=== PATIENT | female | born 1965 | race Caucasian/White ===

== ENCOUNTER 2016-11-06 04:48 | Emergency (ER) | payer OTHER ==
[~2016-11-06 04:48] MED LIST: /ESOM40CA OR; /LAMO15TA PO; /LAMO20TA OR; /MOXI40TA PO; ADV250INH INH; ALBU0.63 IN; ALBU17IN INH; ATOR1TAB21 PO; AZIT250T3 PO; BACITAB3 PO; BIAX500T PO; BREO1INH INH; BUSP15TA47 PO; CETI10TA PO; CHERSYP3 PO; CLON0.5T PO; CLON1TAB PO; COMBAER6 INH; DEPA500T2 PO; DRIS50002 PO; FLON1SPR; FOLI1TAB2 PO; GEMF600T PO; GUAI1TAB PO; HYDR-4274 PO; HYDRO50TAB PO; IBUP80TA PO; INCR1INH INH; INVE234I IM; KLON1TAB PO; LAMI100T PO; LAMI200T3 PO; LAMI25TA OR; LEVO500T32 PO; LIPI10TA PO; LISI-538 PO; LISI20TA5 OR; MACR100C3 PO; MICR10CA PO; MIRA33504 PO; MUCI600T34 PO; NEXI40CA PO; NICO14DI20 TD; NICO4GUM PO; NICO4GUM31 PO; OMEP20CA3 PO; OSCA200T PO; PANT40TA2 PO; PARO25TAB OR; PAXI20TA3 PO; PAXI30TA11 PO; PAXI30TA2 PO; PAXI40TA2 PO; PAXIL PO; PRED20TA PO; QUET30XR PO; QUET5TAB PO; RISP3TAB18 PO; SERO1TAB2 PO; SERO200T PO; SERO200T2 PO; SERO400T OR; SERO400T PO; SPIR1CAP INH; TEMA7.5C PO; TESS100C PO; THIA100TA PO; TRAZ50TA4 PO; TYLE325T5 PO; TYLE500T78 PO; Thiamine Hcl PO; VANC1SUS PO; VANC250C2 PO; VENTAER IN; VITMTA PO; spiriva INH
[2016-11-06] MEDS ORDERED: LEVALBUTEROL 1.25 MG/0.5 ML CONCENTRATE NEB As Ordered ONE (05:29)
[2016-11-06] MEDS ORDERED: predniSONE 20 MG TAB As Ordered ONE (05:36)
--- NOTE | 2016-11-06 06:58 | EDDOCDS ---
Nurse's Notes [facility] Name: Yesenia Melgar Age: 51 yrs Sex: Female : 1965 Arrival Date: 11/06/2016 Time: 04:48 Bed 8 Private MD: Bibiana Spears C Diagnosis: Chronic obstructive pulmonary disease with (acute) exacerbation;Nicotine dependence Presentation: 11/06 05:02 Presenting complaint: Patient states: Was seen here [facility] with similar symptoms, pt lf1 states shortness of breath and cough has gotten worse. Adult Sepsis Screening: The patient does not have new or worsening altered mentation. Patient has a respiratory rate of greater than or equal to 22 (1 point). Systolic blood pressure is greater than 100. Patient has a qSOFA score of 1- Negative Sepsis Screen. Suicide/Homicide risk assessment- the patient denies having any suicidal and/or homicidal ideations and does not present with any other emotional, behavioral or mental health complaints. 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 Transition of care: patient was not received from another setting of care. 05:02 Acuity: SEDA Level 3 lf1 05:02 Method Of Arrival: Walkin/Carried/Asstd lf1 05:09 Presenting complaint: Pt reports she finished a Z-pac yesterday. lf1 Triage Assessment: 05:09 General: Appears uncomfortable, Behavior is cooperative. Pain: Denies pain. HIV lf1 screening NA for this visit Offered previously. The patient is triaged at the bedside. See Assessment in Nurses Notes section of ED record. Neurological: Level of Consciousness is awake, alert, Oriented to person, place, time. EENT: Reports nasal congestion nasal discharge. Cardiovascular: Chest pain is denied. Respiratory: Onset: The symptoms/episode began/occurred yesterday, Respiratory effort is even, unlabored, Respiratory pattern is regular, Breath sounds are coarse Breath sounds with rhonchi bilaterally. Breath sounds with wheezes expiratory bilaterally. Reports shortness of breath cough that is non-productive, the patient has mild shortness of breath. GI: Denies diarrhea, nausea, vomiting. : Denies burning with urination, urinary frequency. Derm: No deficits noted. Injury Description: No known injury. 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 albuterol sulfate 90 mcg/actuation Inhl HFAA 2 puffs every 4 hours as needed (Last dose: 11/06/2016 04:00) 2. folic acid 1 mg Oral tab 1 tab once daily (Last dose: 11/06/2016 04:00) 3. Klonopin 0.5 mg Oral tab 1 tab 3 times per day (Last dose: 11/06/2016 04:00) 4. Lamictal 200 mg Oral tab 2 times per day (Last dose: 11/06/2016 04:00) 5. lisinopril 20 mg Oral tab 1 tab once daily (Last dose: 11/06/2016 04:00) 6. Paxil 30 mg Oral tab once daily (Last dose: 11/06/2016 04:00) 7. prednisone 40 mg Oral tab once daily (Last dose: 11/06/2016 04:00) 8. Protonix 40 mg Oral TbEC 1 tab once daily (Last dose: 11/06/2016 04:00) 9. Seroquel 50 mg Oral tab 1 tab nightly (Last dose: 11/05/2016 20:00) - PMHx: Alcoholism; Anxiety; Bipolar disorder; c-diff; COPD; Hypertension; Pneumonia; PTSD; - PSHx: Cholecystectomy; Ovarian Cystectomy- Right; - The history from nurses notes was reviewed: and I agree with what is documented. - Social history: Smoking status: Patient uses tobacco products, current every day smoker. No barriers to communication noted, The patient speaks fluent Urdu, Speaks appropriately for age, Preferred Language: Urdu. - : The pt / caregiver states he / she is not on anticoagulants. Home medication list is obtained from the patient. - Hospitalizations: : The patient was recently seen at [facility], and discharged 2 month(s) ago, for unrelated complaints. - Exposure Risk Screening:: None identified. - Immunization history:: All immunizations up-to-date. - Family history: Not pertinent. - Social history:: the patient smokes cigarettes 2.5ppd the patient drinks alcohol, regularly to excess. Screenin:11 Screening information is obtained from the patient. Fall risk: No risks identified. lf1 Assistance ADL's: requires no assistance with activities of daily living. Abuse/DV Screen: The patient / caregiver reports he/she is: not in a situation that causes fear, pain or injury. Nutritional screening: No deficits noted. Advance Directives: Currently, there is no health care proxy. There is no active DNR order. home support is adequate. Assessment: 06:08 Adult Sepsis Screening: The patient does not have new or worsening altered mentation. cf2 Patient's respiratory rate is less than 22. Systolic blood pressure is greater than 100. Patient has a qSOFA score of 0- Negative Sepsis Screen. General: Appears in no apparent distress, comfortable, Behavior is appropriate for age, cooperative. Pain: Denies pain. Neurological: No deficits noted. EENT: No deficits noted. Cardiovascular: No deficits noted. Rhythm is sinus rhythm Chest pain is denied. Respiratory: Airway is patent Respiratory effort is even, unlabored, Respiratory pattern is regular, Reports cough that is hacking, persistent. GI: No deficits noted. : No deficits noted. Derm: No deficits noted. Musculoskeletal: No deficits noted. 06:56 General: Appears in no apparent distress, comfortable, Behavior is appropriate for age, ko2 cooperative. Neurological: No deficits noted. Respiratory: Airway is patent Respiratory effort is even, unlabored. Derm: No deficits noted. Vital Signs: 05:02 BP 144 / 98; Pulse 112; Resp 22; Temp 99.3(TE); Pulse Ox 95% ; Weight 81.65 kg (R); lf1 Height 5 ft. 0 in. (152.40 cm) (R); Pain 0/10; 06:48 BP 118 / 72; Pulse 102; Resp 20; Temp 98.9; Pulse Ox 95% ; Pain 0/10; ko2 05:02 Body Mass Index 35.15 (81.65 kg, 152.40 cm) [facility] Vitals: 05:02 Log In Time: November 06, 2016 at 04:50. [facility] ED Course: 04:50 Patient visited by Magy Holder. [facility] 04:50 Bibiana Spears is Private Physician. [facility] 04:50 Patient moved to Waiting [facility] 05:00 Patient moved to Triage 1 [facility] 05:06 Triage Initiated [facility] 05:12 Rozina Orozco,RN is Primary Nurse. lf1 05:12 Patient moved to 8 1 05:25 Kwesi Dyson MD is Attending Physician. pc 05:25 Patient visited by Kwesi Dyson MD. pc 06:08 Primary Nurse role handed off by Rozina Orozco RN cf2 06:08 Jessika Garcia,RN is Primary Nurse. cf2 06:08 Patient visited by Jessika Garcia,PERCY. cf2 06:08 The patient / caregiver is instructed regarding the plan of care and ED course. Patient cf2 has correct armband on for positive identification. Placed in gown. Bed in low position. Call light in reach. Side rails up X 1. Side rails up X2. Door closed. Noise minimized. Visitors limited. Lights dimmed. Moved to private room. 06:08 No IV's were initiated during this patient's visit. No procedures done that require cf2 assistance. 06:44 Bibiana Spears is Referral Physician. 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 Respiratory: Airway is patent Respiratory effort is even, unlabored, Respiratory pattern is regular symmetrical, Breath sounds with wheezes in left posterior upper lobe, right posterior upper lobe, left posterior lower lobe, right posterior middle lobe and right posterior lower lobe at expiration. 05:39 Respiratory: Airway is patent Respiratory effort is even, unlabored, Respiratory jh6 pattern is regular symmetrical, Breath sounds are coarse in left posterior upper lobe and left posterior lower lobe Breath sounds with wheezes in left posterior upper lobe, right posterior upper lobe and right posterior middle lobe at expiration. 05:50 Subsequent Med Neb Given as ordered Patient was reinforced on procedure. Respiratory: jh6 Airway is patent Respiratory effort is even, unlabored, Respiratory pattern is regular symmetrical, Breath sounds are coarse in left posterior upper lobe and left posterior lower lobe Breath sounds with wheezes in left posterior upper lobe, right posterior upper lobe, left posterior lower lobe, right posterior middle lobe and right posterior lower lobe at expiration. 06:10 Subsequent Med Neb Given as ordered Patient was reinforced on procedure Patient jh6 tolerated procedure well without adverse effect. Respiratory: Breath sounds are coarse in left posterior upper lobe, right posterior upper lobe, left posterior lower lobe, right posterior middle lobe and right posterior lower lobe Breath sounds with wheezes in left posterior upper lobe, right posterior upper lobe, left posterior lower lobe, right posterior middle lobe and right posterior lower lobe at expiration. Order Results: There are currently no results for this order. Outcome: 06:45 Discharge ordered by Provider. 06:57 Discharge Assessment: Patient awake, alert and oriented x 3. No cognitive and/or ko2 functional deficits noted. Patient verbalized understanding of disposition instructions. patient administered narcotics - no. The following High Risk Discharge criteria are identified: None. Discharged to home ambulatory. Condition: stable. Discharge instructions given to patient, Instructed on discharge instructions, follow up and referral plans. Demonstrated understanding of instructions, Pt was receptive of discharge instructions/ teaching. No special radiology studies were completed. Property sent home with patient. 06:57 Patient left the ED. ko2 Signatures: Kwesi Dyson MD MD pc Ford, Lisa,RN RN lf1 Vincenzo Landers 6 Rozina Orozco RN RN ko2 Magy Holder Christina,RN RN cf2 MTDD
--- NOTE | 2016-11-06 06:58 | EDDOCDS ---
Physician Documentation [facility] Name: Yesenia Melgar Age: 51 yrs Sex: Female : 1965 Arrival Date: 11/06/2016 Time: 04:48 Bed 8 Private MD: Bibiana Spears C Disposition: 11/06 06:44 Critical Care: Critical care not applicable. pc Disposition: 11/06/16 06:45 Discharged to Home/Self Care. Impression: Chronic obstructive pulmonary disease with (acute) exacerbation, Nicotine dependence. - Condition is Stable. - Discharge Instructions: Chronic Obstructive Pulmonary Disease. - Medication Reconciliation, Local Pharmacy Hours form. - Follow up: Bibiana Spears; When: 1 - 2 days; Reason: Recheck today's complaints, Continuance of care. - Problem is an acute exacerbation. - Symptoms have improved. HPI: 05:27 This 51 yrs old Female presents to ER via Walkin/Carried/Asstd with pc complaints of Breathing Difficulty. 05:27 The history is obtained from the patient. The patient presents with shortness of pc breath, with a prior history of COPD. The symptoms began gradually 2 days ago. The symptoms are continuous, and are unchanged since they started. There were circumstances that led to the current symptoms, including; a recent upper respiratory illness. The patient has shortness of breath at rest. At their worst, the symptoms were mild. In the emergency department, the symptoms are unchanged. The patient's shortness of breath has no apparent modifying factors. The patient has experienced similar episodes in the past, chronically. The patient has been recently seen at the [facility], a couple of weeks ago, for similar complaints. Historical: - Allergies: Flagyl (Hives, Rash); Naproxen (Hives, Swelling); SULFA (SULFONAMIDES) (Hives, Rash); - Home Meds: 1. albuterol sulfate 90 mcg/actuation Inhl HFAA 2 puffs every 4 hours as needed (Last dose: 11/06/2016 04:00) 2. folic acid 1 mg Oral tab 1 tab once daily (Last dose: 11/06/2016 04:00) 3. Klonopin 0.5 mg Oral tab 1 tab 3 times per day (Last dose: 11/06/2016 04:00) 4. Lamictal 200 mg Oral tab 2 times per day (Last dose: 11/06/2016 04:00) 5. lisinopril 20 mg Oral tab 1 tab once daily (Last dose: 11/06/2016 04:00) 6. Paxil 30 mg Oral tab once daily (Last dose: 11/06/2016 04:00) 7. prednisone 40 mg Oral tab once daily (Last dose: 11/06/2016 04:00) 8. Protonix 40 mg Oral TbEC 1 tab once daily (Last dose: 11/06/2016 04:00) 9. Seroquel 50 mg Oral tab 1 tab nightly (Last dose: 11/05/2016 20:00) - PMHx: Alcoholism; Anxiety; Bipolar disorder; c-diff; COPD; Hypertension; Pneumonia; PTSD; - PSHx: Cholecystectomy; Ovarian Cystectomy- Right; - The history from nurses notes was reviewed: and I agree with what is documented. - Social history: Smoking status: Patient uses tobacco products, current every day smoker. No barriers to communication noted, The patient speaks fluent Gibraltarian, Speaks appropriately for age, Preferred Language: Gibraltarian. - : The pt / caregiver states he / she is not on anticoagulants. Home medication list is obtained from the patient. - Hospitalizations: : The patient was recently seen at [facility], and discharged 2 month(s) ago, for unrelated complaints. - Exposure Risk Screening:: None identified. - Immunization history:: All immunizations up-to-date. - Family history: Not pertinent. - Social history:: the patient smokes cigarettes 2.5ppd the patient drinks alcohol, regularly to excess. 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 The gastrointestinal and genitourinary pc components are also addressed in the HPI. Exam: 05:27 General Appearance: no acute distress, alert. pc 05:27 EENT: normal eye inspection, ears, nose and throat normal, pharynx normal, mucous membranes moist 05:27 Neck: normal inspection. 05:27 Respiratory: no respiratory distress, no pleuritic chest pain, speaks in full sentences, auscultation reveals wheezes, diffusely, decreased air entry noted left posterior lower lobe and right posterior lower lobe. 05:27 Cardiovascular: normal heart rate, normal rhythm, no jugular venous distension appreciated, no murmurs, no gallop, no friction rub. 05:27 Abdomen: non-tender, non-distended, no organomegaly. 05:27 Skin: normal color, warm, dry. 05:27 Extremities: non-tender, normal range of motion of all joints, no pedal edema. 05:27 Neuro: alert, oriented to person, place and time, cranial nerves normal as tested, no motor deficits, no sensory deficits. 05:27 Psych: normal mood. Vital Signs: 05:02 BP 144 / 98; Pulse 112; Resp 22; Temp 99.3(TE); Pulse Ox 95% ; Weight 81.65 kg / 180.01 lf1 lbs (R); Height 5 ft. 0 in. (152.40 cm) (R); Pain 0/10; 06:48 BP 118 / 72; Pulse 102; Resp 20; Temp 98.9; Pulse Ox 95% ; Pain 0/10; ko2 05:02 Body Mass Index 35.15 (81.65 kg, 152.40 cm) lf1 MDM: 05:26 Levalbuterol 1.25 mg Nebulizer every 20 minutes x3 ordered. pc 05:26 Call Respiratory ordered. pc 05:26 predniSONE 60 mg PO once; administer with food or milk ordered. pc 05:27 Differential diagnosis: Chronic Obstructive Pulmonary Disease. Plan: nebs, meds. pc 05:28 Call Respiratory complete. ml3 06:44 Data reviewed: old medical records, vital signs, nurses notes. Test interpretation: pulse oximetry is 95% on room air. The patient has been re-examined and re-evaluated. The patient's symptoms have markedly improved after treatment. Disposition: The historical points, examination findings, and any diagnostic results supporting the provided diagnosis, were discussed with the patient or legal guardian. The need for outpatient follow up with the provider listed on their discharge instructions was discussed. They were encouraged to return to [facility], or the nearest ED, if symptoms worsen/persist, or for any other questions/concerns. 06:49 ED course: She was seen for a COPD exacerbation just 5 days ago, was started on prednisone, azithromycin and an albuterol MDI. She does not need any new prescriptions. 06:53 Misc. Nursing Order ordered. 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
--- NOTE | 2016-11-08 07:59 | EDDOCDS ---
Physician Documentation [facility] Name: Yesenia Melgar Age: 51 yrs Sex: Female : 1965 Arrival Date: 11/06/2016 Time: 04:48 Bed 8 Private MD: Bibiana Spears C Disposition: 11/06 06:44 Critical Care: Critical care not applicable. pc Disposition: 11/06/16 06:45 Discharged to Home/Self Care. Impression: Chronic obstructive pulmonary disease with (acute) exacerbation, Nicotine dependence. - Condition is Stable. - Discharge Instructions: Chronic Obstructive Pulmonary Disease. - Medication Reconciliation, Local Pharmacy Hours form. - Follow up: Bibiana Spears; When: 1 - 2 days; Reason: Recheck today's complaints, Continuance of care. - Problem is an acute exacerbation. - Symptoms have improved. HPI: 05:27 This 51 yrs old Female presents to ER via Walkin/Carried/Asstd with pc complaints of Breathing Difficulty. 05:27 The history is obtained from the patient. The patient presents with shortness of pc breath, with a prior history of COPD. The symptoms began gradually 2 days ago. The symptoms are continuous, and are unchanged since they started. There were circumstances that led to the current symptoms, including; a recent upper respiratory illness. The patient has shortness of breath at rest. At their worst, the symptoms were mild. In the emergency department, the symptoms are unchanged. The patient's shortness of breath has no apparent modifying factors. The patient has experienced similar episodes in the past, chronically. The patient has been recently seen at the [facility], a couple of weeks ago, for similar complaints. Historical: - Allergies: Flagyl (Hives, Rash); Naproxen (Hives, Swelling); SULFA (SULFONAMIDES) (Hives, Rash); - Home Meds: 1. albuterol sulfate 90 mcg/actuation Inhl HFAA 2 puffs every 4 hours as needed (Last dose: 11/06/2016 04:00) 2. folic acid 1 mg Oral tab 1 tab once daily (Last dose: 11/06/2016 04:00) 3. Klonopin 0.5 mg Oral tab 1 tab 3 times per day (Last dose: 11/06/2016 04:00) 4. Lamictal 200 mg Oral tab 2 times per day (Last dose: 11/06/2016 04:00) 5. lisinopril 20 mg Oral tab 1 tab once daily (Last dose: 11/06/2016 04:00) 6. Paxil 30 mg Oral tab once daily (Last dose: 11/06/2016 04:00) 7. prednisone 40 mg Oral tab once daily (Last dose: 11/06/2016 04:00) 8. Protonix 40 mg Oral TbEC 1 tab once daily (Last dose: 11/06/2016 04:00) 9. Seroquel 50 mg Oral tab 1 tab nightly (Last dose: 11/05/2016 20:00) - PMHx: Alcoholism; Anxiety; Bipolar disorder; c-diff; COPD; Hypertension; Pneumonia; PTSD; - PSHx: Cholecystectomy; Ovarian Cystectomy- Right; - The history from nurses notes was reviewed: and I agree with what is documented. - Social history: Smoking status: Patient uses tobacco products, current every day smoker. No barriers to communication noted, The patient speaks fluent Wallisian, Speaks appropriately for age, Preferred Language: Wallisian. - : The pt / caregiver states he / she is not on anticoagulants. Home medication list is obtained from the patient. - Hospitalizations: : The patient was recently seen at [facility], and discharged 2 month(s) ago, for unrelated complaints. - Exposure Risk Screening:: None identified. - Immunization history:: All immunizations up-to-date. - Family history: Not pertinent. - Social history:: the patient smokes cigarettes 2.5ppd the patient drinks alcohol, regularly to excess. 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 The gastrointestinal and genitourinary pc components are also addressed in the HPI. Exam: 05:27 General Appearance: no acute distress, alert. pc 05:27 EENT: normal eye inspection, ears, nose and throat normal, pharynx normal, mucous membranes moist 05:27 Neck: normal inspection. 05:27 Respiratory: no respiratory distress, no pleuritic chest pain, speaks in full sentences, auscultation reveals wheezes, diffusely, decreased air entry noted left posterior lower lobe and right posterior lower lobe. 05:27 Cardiovascular: normal heart rate, normal rhythm, no jugular venous distension appreciated, no murmurs, no gallop, no friction rub. 05:27 Abdomen: non-tender, non-distended, no organomegaly. 05:27 Skin: normal color, warm, dry. 05:27 Extremities: non-tender, normal range of motion of all joints, no pedal edema. 05:27 Neuro: alert, oriented to person, place and time, cranial nerves normal as tested, no motor deficits, no sensory deficits. 05:27 Psych: normal mood. Vital Signs: 05:02 BP 144 / 98; Pulse 112; Resp 22; Temp 99.3(TE); Pulse Ox 95% ; Weight 81.65 kg / 180.01 lf1 lbs (R); Height 5 ft. 0 in. (152.40 cm) (R); Pain 0/10; 06:48 BP 118 / 72; Pulse 102; Resp 20; Temp 98.9; Pulse Ox 95% ; Pain 0/10; ko2 05:02 Body Mass Index 35.15 (81.65 kg, 152.40 cm) lf1 MDM: 05:26 Levalbuterol 1.25 mg Nebulizer every 20 minutes x3 ordered. pc 05:26 Call Respiratory ordered. pc 05:26 predniSONE 60 mg PO once; administer with food or milk ordered. pc 05:27 Differential diagnosis: Chronic Obstructive Pulmonary Disease. Plan: nebs, meds. pc 05:28 Call Respiratory complete. ml3 06:44 Data reviewed: old medical records, vital signs, nurses notes. Test interpretation: pulse oximetry is 95% on room air. The patient has been re-examined and re-evaluated. The patient's symptoms have markedly improved after treatment. Disposition: The historical points, examination findings, and any diagnostic results supporting the provided diagnosis, were discussed with the patient or legal guardian. The need for outpatient follow up with the provider listed on their discharge instructions was discussed. They were encouraged to return to [facility], or the nearest ED, if symptoms worsen/persist, or for any other questions/concerns. 06:49 ED course: She was seen for a COPD exacerbation just 5 days ago, was started on prednisone, azithromycin and an albuterol MDI. She does not need any new prescriptions. 06:53 Misc. Nursing Order ordered. pc 07[facility]10 [facility] Agreement was scanned into [employer] and attached to record. jp5 07:10 Financial registration complete. 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 cf2 05:50 Drug: Levalbuterol 1.25 mg [levalbuterol 1.25 mg/0.5 mL solution for nebulization (0.5 jh6 mL)] Route: Nebulizer; 06:10 Drug: Levalbuterol 1.25 mg [levalbuterol 1.25 mg/0.5 mL solution for nebulization (0.5 jh6 mL)] Route: Nebulizer; Signatures: Kwesi Dyson MD MD pc Lopresti, Mary-Elizabeth, Brake Lining Curer Unit ml3 aMgy Shabazz,RN RN lf1 Rozina Orozco RN RN ko2 Nubia Guzman jp5 Vincenzo Landers jh6 Jessika Garcia RN cf2 The chart was reviewed and I authenticate all verbal orders and agree with the evaluation and treatment provided.Attachments: 07:10 [facility] Payment Agreement jp5 Chart Complete MTDD
--- NOTE | 2016-11-08 07:59 | EDDOCDS ---
Nurse's Notes [facility] Name: Yesenia Melgar Age: 51 yrs Sex: Female : 1965 Arrival Date: 11/06/2016 Time: 04:48 Bed 8 Private MD: Bibiana Spears C Diagnosis: Chronic obstructive pulmonary disease with (acute) exacerbation;Nicotine dependence Presentation: 11/06 05:02 Presenting complaint: Patient states: Was seen here [facility] with similar symptoms, pt lf1 states shortness of breath and cough has gotten worse. Adult Sepsis Screening: The patient does not have new or worsening altered mentation. Patient has a respiratory rate of greater than or equal to 22 (1 point). Systolic blood pressure is greater than 100. Patient has a qSOFA score of 1- Negative Sepsis Screen. Suicide/Homicide risk assessment- the patient denies having any suicidal and/or homicidal ideations and does not present with any other emotional, behavioral or mental health complaints. 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 Transition of care: patient was not received from another setting of care. 05:02 Acuity: SEDA Level 3 lf1 05:02 Method Of Arrival: Walkin/Carried/Asstd lf1 05:09 Presenting complaint: Pt reports she finished a Z-pac yesterday. lf1 Triage Assessment: 05:09 General: Appears uncomfortable, Behavior is cooperative. Pain: Denies pain. HIV lf1 screening NA for this visit Offered previously. The patient is triaged at the bedside. See Assessment in Nurses Notes section of ED record. Neurological: Level of Consciousness is awake, alert, Oriented to person, place, time. EENT: Reports nasal congestion nasal discharge. Cardiovascular: Chest pain is denied. Respiratory: Onset: The symptoms/episode began/occurred yesterday, Respiratory effort is even, unlabored, Respiratory pattern is regular, Breath sounds are coarse Breath sounds with rhonchi bilaterally. Breath sounds with wheezes expiratory bilaterally. Reports shortness of breath cough that is non-productive, the patient has mild shortness of breath. GI: Denies diarrhea, nausea, vomiting. : Denies burning with urination, urinary frequency. Derm: No deficits noted. Injury Description: No known injury. 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 albuterol sulfate 90 mcg/actuation Inhl HFAA 2 puffs every 4 hours as needed (Last dose: 11/06/2016 04:00) 2. folic acid 1 mg Oral tab 1 tab once daily (Last dose: 11/06/2016 04:00) 3. Klonopin 0.5 mg Oral tab 1 tab 3 times per day (Last dose: 11/06/2016 04:00) 4. Lamictal 200 mg Oral tab 2 times per day (Last dose: 11/06/2016 04:00) 5. lisinopril 20 mg Oral tab 1 tab once daily (Last dose: 11/06/2016 04:00) 6. Paxil 30 mg Oral tab once daily (Last dose: 11/06/2016 04:00) 7. prednisone 40 mg Oral tab once daily (Last dose: 11/06/2016 04:00) 8. Protonix 40 mg Oral TbEC 1 tab once daily (Last dose: 11/06/2016 04:00) 9. Seroquel 50 mg Oral tab 1 tab nightly (Last dose: 11/05/2016 20:00) - PMHx: Alcoholism; Anxiety; Bipolar disorder; c-diff; COPD; Hypertension; Pneumonia; PTSD; - PSHx: Cholecystectomy; Ovarian Cystectomy- Right; - The history from nurses notes was reviewed: and I agree with what is documented. - Social history: Smoking status: Patient uses tobacco products, current every day smoker. No barriers to communication noted, The patient speaks fluent Nepali, Speaks appropriately for age, Preferred Language: Nepali. - : The pt / caregiver states he / she is not on anticoagulants. Home medication list is obtained from the patient. - Hospitalizations: : The patient was recently seen at [facility], and discharged 2 month(s) ago, for unrelated complaints. - Exposure Risk Screening:: None identified. - Immunization history:: All immunizations up-to-date. - Family history: Not pertinent. - Social history:: the patient smokes cigarettes 2.5ppd the patient drinks alcohol, regularly to excess. Screenin:11 Screening information is obtained from the patient. Fall risk: No risks identified. lf1 Assistance ADL's: requires no assistance with activities of daily living. Abuse/DV Screen: The patient / caregiver reports he/she is: not in a situation that causes fear, pain or injury. Nutritional screening: No deficits noted. Advance Directives: Currently, there is no health care proxy. There is no active DNR order. home support is adequate. Assessment: 06:08 Adult Sepsis Screening: The patient does not have new or worsening altered mentation. cf2 Patient's respiratory rate is less than 22. Systolic blood pressure is greater than 100. Patient has a qSOFA score of 0- Negative Sepsis Screen. General: Appears in no apparent distress, comfortable, Behavior is appropriate for age, cooperative. Pain: Denies pain. Neurological: No deficits noted. EENT: No deficits noted. Cardiovascular: No deficits noted. Rhythm is sinus rhythm Chest pain is denied. Respiratory: Airway is patent Respiratory effort is even, unlabored, Respiratory pattern is regular, Reports cough that is hacking, persistent. GI: No deficits noted. : No deficits noted. Derm: No deficits noted. Musculoskeletal: No deficits noted. 06:56 General: Appears in no apparent distress, comfortable, Behavior is appropriate for age, ko2 cooperative. Neurological: No deficits noted. Respiratory: Airway is patent Respiratory effort is even, unlabored. Derm: No deficits noted. Vital Signs: 05:02 BP 144 / 98; Pulse 112; Resp 22; Temp 99.3(TE); Pulse Ox 95% ; Weight 81.65 kg (R); lf1 Height 5 ft. 0 in. (152.40 cm) (R); Pain 0/10; 06:48 BP 118 / 72; Pulse 102; Resp 20; Temp 98.9; Pulse Ox 95% ; Pain 0/10; ko2 05:02 Body Mass Index 35.15 (81.65 kg, 152.40 cm) [facility] Vitals: 05:02 Log In Time: November 06, 2016 at 04:50. [facility] ED Course: 04:50 Patient visited by Magy Holder. [facility] 04:50 Bibiana Spears is Private Physician. [facility] 04:50 Patient moved to Waiting [facility] 05:00 Patient moved to Triage 1 [facility] 05:06 Triage Initiated [facility] 05:12 Rozina Orozco,RN is Primary Nurse. lf1 05:12 Patient moved to 8 lf1 05:25 Kwesi Dyson MD is Attending Physician. pc 05:25 Patient visited by Kwesi Dyson MD. pc 06:08 Primary Nurse role handed off by Rozina Orozco RN cf2 06:08 Jessika Garcia,RN is Primary Nurse. cf2 06:08 Patient visited by Jessika Garcia,PERCY. cf2 06:08 The patient / caregiver is instructed regarding the plan of care and ED course. Patient cf2 has correct armband on for positive identification. Placed in gown. Bed in low position. Call light in reach. Side rails up X 1. Side rails up X2. Door closed. Noise minimized. Visitors limited. Lights dimmed. Moved to private room. 06:08 No IV's were initiated during this patient's visit. No procedures done that require cf2 assistance. 06:44 Bibiana Spears is Referral Physician. pc 07:10 [facility] Payment Agreement was scanned into [employer] and attached to record. 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 Respiratory: Airway is patent Respiratory effort is even, unlabored, Respiratory pattern is regular symmetrical, Breath sounds with wheezes in left posterior upper lobe, right posterior upper lobe, left posterior lower lobe, right posterior middle lobe and right posterior lower lobe at expiration. 05:39 Respiratory: Airway is patent Respiratory effort is even, unlabored, Respiratory jh6 pattern is regular symmetrical, Breath sounds are coarse in left posterior upper lobe and left posterior lower lobe Breath sounds with wheezes in left posterior upper lobe, right posterior upper lobe and right posterior middle lobe at expiration. 05:50 Subsequent Med Neb Given as ordered Patient was reinforced on procedure. Respiratory: jh6 Airway is patent Respiratory effort is even, unlabored, Respiratory pattern is regular symmetrical, Breath sounds are coarse in left posterior upper lobe and left posterior lower lobe Breath sounds with wheezes in left posterior upper lobe, right posterior upper lobe, left posterior lower lobe, right posterior middle lobe and right posterior lower lobe at expiration. 06:10 Subsequent Med Neb Given as ordered Patient was reinforced on procedure Patient jh6 tolerated procedure well without adverse effect. Respiratory: Breath sounds are coarse in left posterior upper lobe, right posterior upper lobe, left posterior lower lobe, right posterior middle lobe and right posterior lower lobe Breath sounds with wheezes in left posterior upper lobe, right posterior upper lobe, left posterior lower lobe, right posterior middle lobe and right posterior lower lobe at expiration. Order Results: There are currently no results for this order. Outcome: 06:45 Discharge ordered by Provider. pc 06:57 Discharge Assessment: Patient awake, alert and oriented x 3. No cognitive and/or ko2 functional deficits noted. Patient verbalized understanding of disposition instructions. patient administered narcotics - no. The following High Risk Discharge criteria are identified: None. Discharged to home ambulatory. Condition: stable. Discharge instructions given to patient, Instructed on discharge instructions, follow up and referral plans. Demonstrated understanding of instructions, Pt was receptive of discharge instructions/ teaching. No special radiology studies were completed. Property sent home with patient. 06:57 Patient left the ED. ko2 Signatures: Kwesi Dyson MD MD pc Ford, Lisa,RN RN david1 Vincenzo Landers jh6 Rozina Orozco,PERCY RN ko2 Magy Holder Jennalee 5 Jessika Garcia,RN RN cf2 Chart Complete MTDD
--- NOTE | 2016-11-08 07:59 | EDDOCDS ---
Physician Documentation [facility] Name: Yesenia Melgar Age: 51 yrs Sex: Female : 1965 Arrival Date: 11/06/2016 Time: 04:48 Bed 8 Private MD: Bibiana Spears C Disposition: 11/06 06:44 Critical Care: Critical care not applicable. pc Disposition: 11/06/16 06:45 Discharged to Home/Self Care. Impression: Chronic obstructive pulmonary disease with (acute) exacerbation, Nicotine dependence. - Condition is Stable. - Discharge Instructions: Chronic Obstructive Pulmonary Disease. - Medication Reconciliation, Local Pharmacy Hours form. - Follow up: Bibiana Spears; When: 1 - 2 days; Reason: Recheck today's complaints, Continuance of care. - Problem is an acute exacerbation. - Symptoms have improved. HPI: 05:27 This 51 yrs old Female presents to ER via Walkin/Carried/Asstd with pc complaints of Breathing Difficulty. 05:27 The history is obtained from the patient. The patient presents with shortness of pc breath, with a prior history of COPD. The symptoms began gradually 2 days ago. The symptoms are continuous, and are unchanged since they started. There were circumstances that led to the current symptoms, including; a recent upper respiratory illness. The patient has shortness of breath at rest. At their worst, the symptoms were mild. In the emergency department, the symptoms are unchanged. The patient's shortness of breath has no apparent modifying factors. The patient has experienced similar episodes in the past, chronically. The patient has been recently seen at the [facility], a couple of weeks ago, for similar complaints. Historical: - Allergies: Flagyl (Hives, Rash); Naproxen (Hives, Swelling); SULFA (SULFONAMIDES) (Hives, Rash); - Home Meds: 1. albuterol sulfate 90 mcg/actuation Inhl HFAA 2 puffs every 4 hours as needed (Last dose: 11/06/2016 04:00) 2. folic acid 1 mg Oral tab 1 tab once daily (Last dose: 11/06/2016 04:00) 3. Klonopin 0.5 mg Oral tab 1 tab 3 times per day (Last dose: 11/06/2016 04:00) 4. Lamictal 200 mg Oral tab 2 times per day (Last dose: 11/06/2016 04:00) 5. lisinopril 20 mg Oral tab 1 tab once daily (Last dose: 11/06/2016 04:00) 6. Paxil 30 mg Oral tab once daily (Last dose: 11/06/2016 04:00) 7. prednisone 40 mg Oral tab once daily (Last dose: 11/06/2016 04:00) 8. Protonix 40 mg Oral TbEC 1 tab once daily (Last dose: 11/06/2016 04:00) 9. Seroquel 50 mg Oral tab 1 tab nightly (Last dose: 11/05/2016 20:00) - PMHx: Alcoholism; Anxiety; Bipolar disorder; c-diff; COPD; Hypertension; Pneumonia; PTSD; - PSHx: Cholecystectomy; Ovarian Cystectomy- Right; - The history from nurses notes was reviewed: and I agree with what is documented. - Social history: Smoking status: Patient uses tobacco products, current every day smoker. No barriers to communication noted, The patient speaks fluent Lao, Speaks appropriately for age, Preferred Language: Lao. - : The pt / caregiver states he / she is not on anticoagulants. Home medication list is obtained from the patient. - Hospitalizations: : The patient was recently seen at [facility], and discharged 2 month(s) ago, for unrelated complaints. - Exposure Risk Screening:: None identified. - Immunization history:: All immunizations up-to-date. - Family history: Not pertinent. - Social history:: the patient smokes cigarettes 2.5ppd the patient drinks alcohol, regularly to excess. 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 The gastrointestinal and genitourinary pc components are also addressed in the HPI. Exam: 05:27 General Appearance: no acute distress, alert. pc 05:27 EENT: normal eye inspection, ears, nose and throat normal, pharynx normal, mucous membranes moist 05:27 Neck: normal inspection. 05:27 Respiratory: no respiratory distress, no pleuritic chest pain, speaks in full sentences, auscultation reveals wheezes, diffusely, decreased air entry noted left posterior lower lobe and right posterior lower lobe. 05:27 Cardiovascular: normal heart rate, normal rhythm, no jugular venous distension appreciated, no murmurs, no gallop, no friction rub. 05:27 Abdomen: non-tender, non-distended, no organomegaly. 05:27 Skin: normal color, warm, dry. 05:27 Extremities: non-tender, normal range of motion of all joints, no pedal edema. 05:27 Neuro: alert, oriented to person, place and time, cranial nerves normal as tested, no motor deficits, no sensory deficits. 05:27 Psych: normal mood. Vital Signs: 05:02 BP 144 / 98; Pulse 112; Resp 22; Temp 99.3(TE); Pulse Ox 95% ; Weight 81.65 kg / 180.01 lf1 lbs (R); Height 5 ft. 0 in. (152.40 cm) (R); Pain 0/10; 06:48 BP 118 / 72; Pulse 102; Resp 20; Temp 98.9; Pulse Ox 95% ; Pain 0/10; ko2 05:02 Body Mass Index 35.15 (81.65 kg, 152.40 cm) lf1 MDM: 05:26 Levalbuterol 1.25 mg Nebulizer every 20 minutes x3 ordered. pc 05:26 Call Respiratory ordered. pc 05:26 predniSONE 60 mg PO once; administer with food or milk ordered. pc 05:27 Differential diagnosis: Chronic Obstructive Pulmonary Disease. Plan: nebs, meds. pc 05:28 Call Respiratory complete. ml3 06:44 Data reviewed: old medical records, vital signs, nurses notes. Test interpretation: pulse oximetry is 95% on room air. The patient has been re-examined and re-evaluated. The patient's symptoms have markedly improved after treatment. Disposition: The historical points, examination findings, and any diagnostic results supporting the provided diagnosis, were discussed with the patient or legal guardian. The need for outpatient follow up with the provider listed on their discharge instructions was discussed. They were encouraged to return to [facility], or the nearest ED, if symptoms worsen/persist, or for any other questions/concerns. 06:49 ED course: She was seen for a COPD exacerbation just 5 days ago, was started on prednisone, azithromycin and an albuterol MDI. She does not need any new prescriptions. 06:53 Misc. Nursing Order ordered. pc 07:10 [facility] Payment Agreement was scanned into [employer] and attached to record. jp5 07:10 Financial registration complete. 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 cf2 05:50 Drug: Levalbuterol 1.25 mg [levalbuterol 1.25 mg/0.5 mL solution for nebulization (0.5 jh6 mL)] Route: Nebulizer; 06:10 Drug: Levalbuterol 1.25 mg [levalbuterol 1.25 mg/0.5 mL solution for nebulization (0.5 jh6 mL)] Route: Nebulizer; Signatures: Kwesi Dyson MD MD pc Lopresti, Mary-Elizabeth, [employer] ml3 Magy Shabazz,RN RN lf1 Rozina Orozco RN RN ko2 Nubia Guzman jp5 Vincenzo Landers jh6 Jessika Garcia RN cf2 The chart was reviewed and I authenticate all verbal orders and agree with the evaluation and treatment provided.Attachments: 07:10 [facility] Payment Agreement jp5 Chart Complete MTDD
== END 2016-11-06 06:57 | disposition home or self-care (01) ==
LOC: M ED 04:48
DX: J44.1 Chronic obstructive pulmonary disease with (acute) exacerbation (principal); I10 Essential (primary) hypertension; F43.10 Post-traumatic stress disorder, unspecified; F31.9 Bipolar disorder, unspecified; F41.9 Anxiety disorder, unspecified; F10.20 Alcohol dependence, uncomplicated; Z79.899 Other long term (current) drug therapy; Z79.52 Long term (current) use of systemic steroids; Z88.1 Allergy status to other antibiotic agents; Z88.2 Allergy status to sulfonamides; Z88.8 Allergy status to other drugs, medicaments and biological substances; F17.210 Nicotine dependence, cigarettes, uncomplicated

== ENCOUNTER → 2016-12-05 | Outpatient (CLI) | payer OTHER ==
[2016-12-05 09:12] LABS: BASO # 0.1 K/mm3 (0.0-0.2); EOS # 0.1 K/mm3 (0.0-0.50); EOS % 1.8 % (0.0-3.0); LYMPH # 2.8 K/mm3 (1.5-4.5); LYMPH % 42.1 % (24.0-44.0); MEAN CORPUSCULAR HEMOGLOBIN 31.8 pg (27.0-33.0); MEAN CORPUSCULAR HGB CONC 32.6 g/dl (32.0-36.5); MEAN CORPUSCULAR VOLUME 97.3 fl (80.0-96.0); MONO # 0.5 K/mm3 (0.0-0.8); MONO % 6.8 % (0.0-5.0); NEUTROPHILS % 45.8 % (36.0-66.0); RED CELL DISTRIBUTION WIDTH 13.3 % (11.5-14.5); WHITE BLOOD COUNT 6.6 K/mm3 (4.0-10.0)
[2016-12-05 09:48] LABS: ALBUMIN 3.5 GM/DL (3.2-5.2); ALBUMIN/GLOBULIN RATIO 0.95 (1.00-1.93); ALKALINE PHOSPHATASE 89 U/L (45-117); ALT/SGPT 26 U/L (12-78); ANION GAP 9 MEQ/L (8-16); AST/SGOT 19 U/L (15-37); BILIRUBIN,TOTAL 0.2 MG/DL (0.2-1.0); BLOOD UREA NITROGEN 8 MG/DL (7-18); CARBON DIOXIDE LEVEL 27 MEQ/L (21-32); CHLORIDE LEVEL 105 MEQ/L (98-107); CHOLESTEROL LEVEL 228 MG/DL (<200); CREATININE FOR GFR 0.64 MG/DL (0.55-1.02); GLOMERULAR FILTRATION RATE > 60.0 (>58); GLUCOSE, FASTING 93 MG/DL (70-105); POTASSIUM SERUM 4.8 MEQ/L (3.5-5.1); SODIUM LEVEL 141 MEQ/L (136-145); TOTAL PROTEIN 7.2 GM/DL (6.4-8.2); TRIGLYCERIDES LEVEL 259 MG/DL (<150)
--- NOTE | 2016-12-05 11:48 | REP ---
CT STUDY OF THE CHEST WITHOUT CONTRAST: HISTORY: Sebaceous gland disease, short of breath. Comparison chest CT study March 20, 2016. This prior study showed mild mediastinal lymphadenopathy and small bilateral pleural effusions along with a mixed alveolar and interstitial pulmonary opacification pattern in the lung ventura. CT FINDINGS: There is no evidence of pleural or pericardial effusion today. These have resolved. The lung window settings demonstrate clear lung ventura. The alveolar and interstitial edema pattern seen previously has resolved as well. There is mild linear fibrosis in the right middle lobe and lingula and in the left lower lobe. No pulmonary mass lesion or nodule is seen. There are scattered normal sized mediastinal lymph nodes. These are generally smaller than on the March 20, 2016 study. No extrathoracic mass or adenopathy is seen. No adrenal lesion is observed. There are clips in the gallbladder fossa. The visualized upper abdominal structures are otherwise unremarkable. No bony destructive lesion is seen. IMPRESSION: No active disease. Previously noted radiographic findings resolved or improved. Signed by Aki Logan MD 12/05/2016 01:55 P
== END ==
LOC: M LAB 08:29 → M RAD 08:29
PROVIDERS: ATTEND Physician Assistant Medical
DX: J06.9 Acute upper respiratory infection, unspecified (principal); I10 Essential (primary) hypertension

== ENCOUNTER 2016-12-28 05:43 | Emergency (ER) | payer OTHER ==
[2016-12-28] MEDS ORDERED: CYCLOBENZAPRINE 10 MG TAB As Ordered ONE (07:17)
[2016-12-28] MEDS ORDERED: NORCO, ANEXSIA 5/325MG TABLET (HYDROcodone/ACETAMINOPHEN) As Ordered ONE (07:17)
--- NOTE | 2016-12-28 07:32 | EDDOCDS ---
Physician Documentation [facility] Name: Yesenia Melgar Age: 51 yrs Sex: Female : 1965 Arrival Date: 12/28/2016 Time: 05:43 Bed I2 / M2 Private MD: Disposition: 12/28/16 07:16 Discharged to Home/Self Care. Impression: Torticollis. - Condition is Stable. - Discharge Instructions: Torticollis, Acute. - Prescriptions for Hydrocodone- Acetaminophen 5-325 mg Oral Tablet - take 1 tablet by ORAL route every 6 hours As needed MDD: 4 tabs; 12 tablet. Cyclobenzaprine 10 mg Oral Tablet - take 1 tablet by ORAL route 3 times per day As needed; 15 tablet. - Medication Reconciliation, Local Pharmacy Hours form. - Follow up: Private Physician; When: Call to arrange an appointment; Reason: Wound/Symptom Recheck, Recheck today's complaints, Worsening of conditions, Continuance of care. - Problem is an ongoing problem. - Symptoms are unchanged. Historical: - Allergies: Flagyl (Hives, Rash); Naproxen (Hives, Swelling); SULFA (SULFONAMIDES) (Hives, Rash); - Home Meds: 1. albuterol sulfate 90 mcg/actuation Inhl HFAA 2 puffs every 4 hours as needed 2. folic acid 1 mg Oral tab 1 tab once daily 3. Klonopin 0.5 mg Oral tab 1 tab 3 times per day 4. Lamictal 200 mg Oral tab 2 times per day 5. lisinopril 20 mg Oral tab 1 tab once daily 6. Paxil 30 mg Oral tab once daily 7. Protonix 40 mg Oral TbEC 1 tab once daily 8. Seroquel 50 mg Oral tab 1 tab nightly - PMHx: Alcoholism; Anxiety; Bipolar disorder; c-diff; COPD; Hypertension; Pneumonia; PTSD; - PSHx: Cholecystectomy; Ovarian Cystectomy- Right; - Social history: Smoking status: Patient uses tobacco products, heavy tobacco smoker. No barriers to communication noted, The patient speaks fluent Indonesian. - Family history: Not pertinent. - : The pt / caregiver states he / she is not on anticoagulants. Home medication list is obtained from [employer] import data. - Exposure Risk Screening:: None identified. 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 0 in. (152.40 cm) (R); Pain 8/10; 07:30 BP 110 / 76; Pulse 92; Resp 18; Temp 97.4; Pulse Ox 98% ; Pain 8/10; dls 06:47 Body Mass Index 34.76 (80.74 kg, 152.40 cm) dls MDM: 07:10 HYDROcodone-acetaminophen 5 mg-325 mg 2 tabs PO once ordered. cc10 07:10 Cyclobenzaprine 10 mg PO once ordered. cc10 07:29 Financial registration complete. mm15 07:29 [facility] Payment Agreement was scanned into [employer] and attached to record. mm15 Administered Medications: 07:19 Drug: HYDROcodone-acetaminophen 2 tabs [hydrocodone 5 mg-acetaminophen 325 mg tablet (2 dls tabs)] Route: PO; 07:27 Follow up: Response: No Adverse Reaction dls 07:19 Drug: Cyclobenzaprine 10 mg [cyclobenzaprine 10 mg tablet (1 tabs)] Route: PO; dls 07:27 Follow up: Response: No Adverse Reaction dls Signatures: Gia Day RN RN dls Brittani Rhoades mm15 Avtar Doll PA-C PAKayleeC cc10 The chart was reviewed and I authenticate all verbal orders and agree with the evaluation and treatment provided.Attachments: 07:29 [facility] Payment Agreement mm15 MTDD
--- NOTE | 2016-12-28 07:32 | EDDOCDS ---
Nurse's Notes [facility] Name: Yesenia Melgar Age: 51 yrs Sex: Female : 1965 Arrival Date: 12/28/2016 Time: 05:43 Bed I2 / M2 Private MD: Diagnosis: Torticollis Presentation: 12/28 06:44 Presenting complaint: Patient states: Pt presents with c/o left sided lower back pain dls onset yesterday morning nothing helping. Acute neurological deficits are not present. Mechanism of Injury: No Mechanism of Injury. Adult Sepsis Screening: The patient does not have new or worsening altered mentation. Patient's respiratory rate is less than 22. Systolic blood pressure is greater than 100. Patient has a qSOFA score of 0- Negative Sepsis Screen. Suicide/Homicide risk assessment- the patient denies having any suicidal and/or homicidal ideations and does not present with any other emotional, behavioral or mental health complaints. 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 Transition of care: patient was not received from another setting of care. 06:44 Acuity: SEDA Level 4 dls 06:44 Method Of Arrival: Walkin/Carried/Asstd dls Triage Assessment: 06:47 General: Appears in no apparent distress, Behavior is cooperative. Pain: Pain currently dls is 8 out of 10 on a pain scale. HIV screening NA for this visit Offered previously. Musculoskeletal: No deficits noted. 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 albuterol sulfate 90 mcg/actuation Inhl HFAA 2 puffs every 4 hours as needed 2. folic acid 1 mg Oral tab 1 tab once daily 3. Klonopin 0.5 mg Oral tab 1 tab 3 times per day 4. Lamictal 200 mg Oral tab 2 times per day 5. lisinopril 20 mg Oral tab 1 tab once daily 6. Paxil 30 mg Oral tab once daily 7. Protonix 40 mg Oral TbEC 1 tab once daily 8. Seroquel 50 mg Oral tab 1 tab nightly - PMHx: Alcoholism; Anxiety; Bipolar disorder; c-diff; COPD; Hypertension; Pneumonia; PTSD; - PSHx: Cholecystectomy; Ovarian Cystectomy- Right; - Social history: Smoking status: Patient uses tobacco products, heavy tobacco smoker. No barriers to communication noted, The patient speaks fluent Cuban. - Family history: Not pertinent. - : The pt / caregiver states he / she is not on anticoagulants. Home medication list is obtained from [employer] import data. - Exposure Risk Screening:: None identified. Screenin:28 Screening information is obtained from the patient. Primary language is Cuban. Fall dls risk: No risks identified. Assistance ADL's: requires no assistance with activities of daily living. Abuse/DV Screen: The patient / caregiver reports he/she is: not in a situation that causes fear, pain or injury. Nutritional screening: No deficits noted. Advance Directives: Currently, there is no health care proxy. There is no active DNR order. There is no living will. There is no Power of Relay Checker. Advance directive information has not previously been placed in an [facility] medical record. home support is adequate. Assessment: 07:27 General: Appears in no apparent distress, obese, well developed, Behavior is dls cooperative. Awake, alert, oriented. Skin warm and dry. Moves all extremities. Bilateral breath sounds clear. Respirations unlabored. Abdomen soft, non-tender. No apparent distress. The patient / caregiver is instructed regarding the plan of care and ED course. Vital Signs: 06:47 BP 112 / 71; Pulse 95; Resp 20; Temp 97.4; Pulse Ox 96% ; Weight 80.74 kg (R); Height 5 dls ft. 0 in. (152.40 cm) (R); Pain 8/10; 07:30 BP 110 / 76; Pulse 92; Resp 18; Temp 97.4; Pulse Ox 98% ; Pain 8/10; dls 06:47 Body Mass Index 34.76 (80.74 kg, 152.40 cm) dls Vitals: 06:47 Log In Time: December 28, 2016 at 05:44. [facility] ED Course: 05:44 Patient visited by Marlys Lyn Reg. hs2 05:44 Patient moved to Waiting hs2 06:43 Patient moved to Triage 2 dls 06:45 Triage Initiated dls 06:51 Patient moved to I2 / M2 dls 06:59 [facility] Doll [facility] cc[facility] 06:59 Ezra Davenport MD is Attending Physician. cc10 06:59 Patient visited by Avtar Doll PA-C. cc10 06:59 Patient visited by Avtar Doll PA-C. cc10 07:28 Patient has correct armband on for positive identification. Bed in low position. Call dls light in reach. 07:29 [facility] Payment Agreement was scanned into [employer] and attached to record. mm15 07:30 No IV's were initiated during this patient's visit. No procedures done that require dls assistance Assist provider with bone marrow aspiration. Administered Medications: 07:19 Drug: HYDROcodone-acetaminophen 2 tabs [hydrocodone 5 mg-acetaminophen 325 mg tablet (2 dls tabs)] Route: PO; 07:27 Follow up: Response: No Adverse Reaction dls 07:19 Drug: Cyclobenzaprine 10 mg [cyclobenzaprine 10 mg tablet (1 tabs)] Route: PO; dls 07:27 Follow up: Response: No Adverse Reaction dls Order Results: There are currently no results for this order. Outcome: 07:16 Discharge ordered by Provider. cc10 07:28 The following High Risk Discharge criteria are identified: None. Discharged to home dls ambulatory. Condition: stable. Discharge instructions given to patient, Instructed on discharge instructions, follow up and referral plans. medication usage, Demonstrated understanding of instructions, medications, Pt was receptive of discharge instructions/ teaching. Prescriptions given X 2. No special radiology studies were completed. 07:30 Discharge Assessment: Patient awake, alert and oriented x 3. No cognitive and/or dls functional deficits noted. Patient verbalized understanding of disposition instructions. patient administered narcotics - yes. Pt provided with safe discharge. Property :Personal belongings accompany Pt. 07:31 Patient left the ED. dls Signatures: Gia Day RN RN dls Brittani Rhoades mm15 Avtar Doll PA-C PA-C cc10 Marlys Lyn, Reg Reg hs2 [facility]
--- NOTE | 2016-12-30 08:32 | EDDOCDS ---
Physician Documentation [facility] Name: Yesenia Melgar Age: 51 yrs Sex: Female : 1965 Arrival Date: 12/28/2016 Time: 05:43 Bed I2 / M2 Private MD: Disposition: 12/28/16 07:16 Discharged to Home/Self Care. Impression: Torticollis. - Condition is Stable. - Discharge Instructions: Torticollis, Acute. - Prescriptions for Hydrocodone- Acetaminophen 5-325 mg Oral Tablet - take 1 tablet by ORAL route every 6 hours As needed MDD: 4 tabs; 12 tablet. Cyclobenzaprine 10 mg Oral Tablet - take 1 tablet by ORAL route 3 times per day As needed; 15 tablet. - Medication Reconciliation, Local Pharmacy Hours form. - Follow up: Private Physician; When: Call to arrange an appointment; Reason: Wound/Symptom Recheck, Recheck today's complaints, Worsening of conditions, Continuance of care. - Problem is an ongoing problem. - Symptoms are unchanged. Historical: - Allergies: Flagyl (Hives, Rash); Naproxen (Hives, Swelling); SULFA (SULFONAMIDES) (Hives, Rash); - Home Meds: 1. albuterol sulfate 90 mcg/actuation Inhl HFAA 2 puffs every 4 hours as needed 2. folic acid 1 mg Oral tab 1 tab once daily 3. Klonopin 0.5 mg Oral tab 1 tab 3 times per day 4. Lamictal 200 mg Oral tab 2 times per day 5. lisinopril 20 mg Oral tab 1 tab once daily 6. Paxil 30 mg Oral tab once daily 7. Protonix 40 mg Oral TbEC 1 tab once daily 8. Seroquel 50 mg Oral tab 1 tab nightly - PMHx: Alcoholism; Anxiety; Bipolar disorder; c-diff; COPD; Hypertension; Pneumonia; PTSD; - PSHx: Cholecystectomy; Ovarian Cystectomy- Right; - Social history: Smoking status: Patient uses tobacco products, heavy tobacco smoker. No barriers to communication noted, The patient speaks fluent Irish. - Family history: Not pertinent. - : The pt / caregiver states he / she is not on anticoagulants. Home medication list is obtained from [employer] import data. - Exposure Risk Screening:: None identified. 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 0 in. (152.40 cm) (R); Pain 8/10; 07:30 BP 110 / 76; Pulse 92; Resp 18; Temp 97.4; Pulse Ox 98% ; Pain 8/10; dls 06:47 Body Mass Index 34.76 (80.74 kg, 152.40 cm) dls MDM: 07:10 HYDROcodone-acetaminophen 5 mg-325 mg 2 tabs PO once ordered. cc10 07:10 Cyclobenzaprine 10 mg PO once ordered. cc10 07:29 Financial registration complete. mm15 07:29 [facility] Payment Agreement was scanned into [employer] and attached to record. mm15 09:20 T-Sheet-- Draft Copy was scanned into [employer] and attached to record. seh Administered Medications: 07:19 Drug: HYDROcodone-acetaminophen 2 tabs [hydrocodone 5 mg-acetaminophen 325 mg tablet (2 dls tabs)] Route: PO; 07:27 Follow up: Response: No Adverse Reaction dls 07:19 Drug: Cyclobenzaprine 10 mg [cyclobenzaprine 10 mg tablet (1 tabs)] Route: PO; dls 07:27 Follow up: Response: No Adverse Reaction dls Signatures: Gia Day RN RN dls Brittani Rhoades mm15 Avtar Doll PA-C PA-C cc Jania Bowie [facility] The chart was reviewed and I authenticate all verbal orders and agree with the evaluation and treatment provided.Attachments: 07:29 [facility] Payment Agreement mm15 09:20 T-Sheet-- Draft Copy [facility] Chart Complete MTDD
--- NOTE | 2016-12-30 08:32 | EDDOCDS ---
Physician Documentation [facility] Name: Yesenia Melgar Age: 51 yrs Sex: Female : 1965 Arrival Date: 12/28/2016 Time: 05:43 Bed I2 / M2 Private MD: Disposition: 12/28/16 07:16 Discharged to Home/Self Care. Impression: Torticollis. - Condition is Stable. - Discharge Instructions: Torticollis, Acute. - Prescriptions for Hydrocodone- Acetaminophen 5-325 mg Oral Tablet - take 1 tablet by ORAL route every 6 hours As needed MDD: 4 tabs; 12 tablet. Cyclobenzaprine 10 mg Oral Tablet - take 1 tablet by ORAL route 3 times per day As needed; 15 tablet. - Medication Reconciliation, Local Pharmacy Hours form. - Follow up: Private Physician; When: Call to arrange an appointment; Reason: Wound/Symptom Recheck, Recheck today's complaints, Worsening of conditions, Continuance of care. - Problem is an ongoing problem. - Symptoms are unchanged. Historical: - Allergies: Flagyl (Hives, Rash); Naproxen (Hives, Swelling); SULFA (SULFONAMIDES) (Hives, Rash); - Home Meds: 1. albuterol sulfate 90 mcg/actuation Inhl HFAA 2 puffs every 4 hours as needed 2. folic acid 1 mg Oral tab 1 tab once daily 3. Klonopin 0.5 mg Oral tab 1 tab 3 times per day 4. Lamictal 200 mg Oral tab 2 times per day 5. lisinopril 20 mg Oral tab 1 tab once daily 6. Paxil 30 mg Oral tab once daily 7. Protonix 40 mg Oral TbEC 1 tab once daily 8. Seroquel 50 mg Oral tab 1 tab nightly - PMHx: Alcoholism; Anxiety; Bipolar disorder; c-diff; COPD; Hypertension; Pneumonia; PTSD; - PSHx: Cholecystectomy; Ovarian Cystectomy- Right; - Social history: Smoking status: Patient uses tobacco products, heavy tobacco smoker. No barriers to communication noted, The patient speaks fluent Spanish. - Family history: Not pertinent. - : The pt / caregiver states he / she is not on anticoagulants. Home medication list is obtained from [employer] import data. - Exposure Risk Screening:: None identified. 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 0 in. (152.40 cm) (R); Pain 8/10; 07:30 BP 110 / 76; Pulse 92; Resp 18; Temp 97.4; Pulse Ox 98% ; Pain 8/10; dls 06:47 Body Mass Index 34.76 (80.74 kg, 152.40 cm) dls MDM: 07:10 HYDROcodone-acetaminophen 5 mg-325 mg 2 tabs PO once ordered. cc10 07:10 Cyclobenzaprine 10 mg PO once ordered. cc10 07:29 Financial registration complete. mm15 07:29 [facility] Payment Agreement was scanned into [employer] and attached to record. mm15 09:20 T-Sheet-- Draft Copy was scanned into [employer] and attached to record. seh Administered Medications: 07:19 Drug: HYDROcodone-acetaminophen 2 tabs [hydrocodone 5 mg-acetaminophen 325 mg tablet (2 dls tabs)] Route: PO; 07:27 Follow up: Response: No Adverse Reaction dls 07:19 Drug: Cyclobenzaprine 10 mg [cyclobenzaprine 10 mg tablet (1 tabs)] Route: PO; dls 07:27 Follow up: Response: No Adverse Reaction dls Signatures: Gia Day RN RN dls Brittani Rhoades mm15 Avtar Doll PA-C PA-C cc Jania Bowie [facility] The chart was reviewed and I authenticate all verbal orders and agree with the evaluation and treatment provided.Attachments: 07:29 [facility] Payment Agreement mm15 09:20 T-Sheet-- Draft Copy [facility] Chart Complete MTDD
--- NOTE | 2016-12-30 08:32 | EDDOCDS ---
Nurse's Notes [facility] Name: Yesenia Melgar Age: 51 yrs Sex: Female : 1965 Arrival Date: 12/28/2016 Time: 05:43 Bed I2 / M2 Private MD: Diagnosis: Torticollis Presentation: 12/28 06:44 Presenting complaint: Patient states: Pt presents with c/o left sided lower back pain dls onset yesterday morning nothing helping. Acute neurological deficits are not present. Mechanism of Injury: No Mechanism of Injury. Adult Sepsis Screening: The patient does not have new or worsening altered mentation. Patient's respiratory rate is less than 22. Systolic blood pressure is greater than 100. Patient has a qSOFA score of 0- Negative Sepsis Screen. Suicide/Homicide risk assessment- the patient denies having any suicidal and/or homicidal ideations and does not present with any other emotional, behavioral or mental health complaints. Status: Patient is not a rn medical inpatient services or dependent. Transition of care: patient was not received from another setting of care. 06:44 Acuity: SEDA Level 4 dls 06:44 Method Of Arrival: Walkin/Carried/Asstd dls Triage Assessment: 06:47 General: Appears in no apparent distress, Behavior is cooperative. Pain: Pain currently dls is 8 out of 10 on a pain scale. HIV screening NA for this visit Offered previously. Musculoskeletal: No deficits noted. 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 albuterol sulfate 90 mcg/actuation Inhl HFAA 2 puffs every 4 hours as needed 2. folic acid 1 mg Oral tab 1 tab once daily 3. Klonopin 0.5 mg Oral tab 1 tab 3 times per day 4. Lamictal 200 mg Oral tab 2 times per day 5. lisinopril 20 mg Oral tab 1 tab once daily 6. Paxil 30 mg Oral tab once daily 7. Protonix 40 mg Oral TbEC 1 tab once daily 8. Seroquel 50 mg Oral tab 1 tab nightly - PMHx: Alcoholism; Anxiety; Bipolar disorder; c-diff; COPD; Hypertension; Pneumonia; PTSD; - PSHx: Cholecystectomy; Ovarian Cystectomy- Right; - Social history: Smoking status: Patient uses tobacco products, heavy tobacco smoker. No barriers to communication noted, The patient speaks fluent Martiniquais. - Family history: Not pertinent. - : The pt / caregiver states he / she is not on anticoagulants. Home medication list is obtained from [employer] import data. - Exposure Risk Screening:: None identified. Screenin:28 Screening information is obtained from the patient. Primary language is Martiniquais. Fall dls risk: No risks identified. Assistance ADL's: requires no assistance with activities of daily living. Abuse/DV Screen: The patient / caregiver reports he/she is: not in a situation that causes fear, pain or injury. Nutritional screening: No deficits noted. Advance Directives: Currently, there is no health care proxy. There is no active DNR order. There is no living will. There is no Power of Potato Loader. Advance directive information has not previously been placed in an [facility] medical record. home support is adequate. Assessment: 07:27 General: Appears in no apparent distress, obese, well developed, Behavior is dls cooperative. Awake, alert, oriented. Skin warm and dry. Moves all extremities. Bilateral breath sounds clear. Respirations unlabored. Abdomen soft, non-tender. No apparent distress. The patient / caregiver is instructed regarding the plan of care and ED course. Vital Signs: 06:47 BP 112 / 71; Pulse 95; Resp 20; Temp 97.4; Pulse Ox 96% ; Weight 80.74 kg (R); Height 5 dls ft. 0 in. (152.40 cm) (R); Pain 8/10; 07:30 BP 110 / 76; Pulse 92; Resp 18; Temp 97.4; Pulse Ox 98% ; Pain 8/10; dls 06:47 Body Mass Index 34.76 (80.74 kg, 152.40 cm) dls Vitals: 06:47 Log In Time: December 28, 2016 at 05:44. [facility] ED Course: 05:44 Patient visited by Marlys Lyn Reg. hs2 05:44 Patient moved to Waiting hs2 06:43 Patient moved to Triage 2 dls 06:45 Triage Initiated dls 06:51 Patient moved to I2 / M2 dls 06:59 [facility] cc[facility] 06:59 Ezra Davenport MD is Attending Physician. cc10 06:59 Patient visited by Avtar Doll PA-C. cc10 06:59 Patient visited by Avtar Doll PA-C. cc10 07:28 Patient has correct armband on for positive identification. Bed in low position. Call dls light in reach. 07:29 [facility] Payment Agreement was scanned into [email or web address] and attached to record. mm15 07:30 No IV's were initiated during this patient's visit. No procedures done that require dls assistance Assist provider with bone marrow aspiration. 09:20 T-Sheet-- Draft Copy was scanned into [employer] and attached to record. se Administered Medications: 07:19 Drug: HYDROcodone-acetaminophen 2 tabs [hydrocodone 5 mg-acetaminophen 325 mg tablet (2 dls tabs)] Route: PO; 07:27 Follow up: Response: No Adverse Reaction dls 07:19 Drug: Cyclobenzaprine 10 mg [cyclobenzaprine 10 mg tablet (1 tabs)] Route: PO; dls 07:27 Follow up: Response: No Adverse Reaction dls Order Results: There are currently no results for this order. Outcome: 07:16 Discharge ordered by Provider. cc10 07:28 The following High Risk Discharge criteria are identified: None. Discharged to home dls ambulatory. Condition: stable. Discharge instructions given to patient, Instructed on discharge instructions, follow up and referral plans. medication usage, Demonstrated understanding of instructions, medications, Pt was receptive of discharge instructions/ teaching. Prescriptions given X 2. No special radiology studies were completed. 07:30 Discharge Assessment: Patient awake, alert and oriented x 3. No cognitive and/or dls functional deficits noted. Patient verbalized understanding of disposition instructions. patient administered narcotics - yes. Pt provided with safe discharge. Property :Personal belongings accompany Pt. 07:31 Patient left the ED. dls Signatures: Gia Day RN RN dls Brittani Rhoades mm15 Avtar Doll PA-C PA-C cc10 LynMarlys, Reg Reg hs2 Jania Bowie [facility] Chart Complete MTDD
== END 2016-12-28 07:31 | disposition home or self-care (01) ==
LOC: M ED 05:43
DX: M54.12 Radiculopathy, cervical region (principal); M43.6 Torticollis; F10.10 Alcohol abuse, uncomplicated; F41.9 Anxiety disorder, unspecified; F31.9 Bipolar disorder, unspecified; J44.9 Chronic obstructive pulmonary disease, unspecified; I10 Essential (primary) hypertension; F43.10 Post-traumatic stress disorder, unspecified; Z86.19 Personal history of other infectious and parasitic diseases; Z87.891 Personal history of nicotine dependence; Z79.899 Other long term (current) drug therapy; Z88.2 Allergy status to sulfonamides; Z88.1 Allergy status to other antibiotic agents; Z88.8 Allergy status to other drugs, medicaments and biological substances

== ENCOUNTER 2017-03-13 15:20 | Emergency (ER) | payer OTHER ==
[~2017-03-13] VITALS: Ht 152.4 cm; Wt 80.7 kg
[2017-03-13] MEDS ORDERED: SUCRALFATE SUSP 1GM/10ML UD PO ONE (17:00)
[2017-03-13] MEDS ORDERED: PANTOPRAZOLE 40MG TAB (PROTONIX) PO ONE (17:00)
[2017-03-13] MEDS ORDERED: SUCRALFATE 1 GM TAB PO ONE (17:15)
[2017-03-13] MEDS ORDERED: OXAZ30CA2 PO (17:30)
[2017-03-13 17:45] VITALS: BP 128/89
== END 2017-03-13 17:52 | disposition home or self-care (01) ==
LOC: M ED 16:18
DX: F10.129 Alcohol abuse with intoxication, unspecified (principal); F43.10 Post-traumatic stress disorder, unspecified; F31.9 Bipolar disorder, unspecified; I10 Essential (primary) hypertension; G43.909 Migraine, unspecified, not intractable, without status migrainosus; J45.909 Unspecified asthma, uncomplicated; F17.200 Nicotine dependence, unspecified, uncomplicated; Z91.5 Personal history of self-harm; Z90.49 Acquired absence of other specified parts of digestive tract; Z90.89 Acquired absence of other organs

== ENCOUNTER 2017-03-22 09:27 | Emergency (ER) | payer OTHER ==
[~2017-03-22] VITALS: Ht 154.9 cm; Wt 80.7 kg
[~2017-03-22 09:27] MED LIST changes: +OXAZ30CA2 PO
[2017-03-22 10:50] LABS: BASO # 0.1 K/mm3 (0.0-0.2); BASO % 1.8 % (0.0-1.0); EOS # 0.2 K/mm3 (0.0-0.50); EOS % 2.9 % (0.0-3.0); LARGE UNSTAINED CELL # 0.2 K/mm3 (0.0-0.4); LARGE UNSTAINED CELL % 2.6 % (0.0-4.0); LYMPH # 2.8 K/mm3 (1.5-4.5); MEAN CORPUSCULAR HEMOGLOBIN 31.8 pg (27.0-33.0); MEAN CORPUSCULAR HGB CONC 33.6 g/dl (32.0-36.5); MEAN CORPUSCULAR VOLUME 94.5 fl (80.0-96.0); MONO # 0.3 K/mm3 (0.0-0.8); MONO % 5.4 % (0.0-5.0); NEUTROPHILS # 2.6 K/mm3 (1.8-7.7); NEUTROPHILS % 43.3 % (36.0-66.0); PLATELET COUNT, AUTOMATED 306 k/mm3 (150-450); RED CELL DISTRIBUTION WIDTH 13.6 % (11.5-14.5); WHITE BLOOD COUNT 6.1 K/mm3 (4.0-10.0)
[2017-03-22] MEDS ORDERED: OXAZEPAM 15 MG CAP PO ONE (11:15)
[2017-03-22 11:20] LABS: ANION GAP 11 MEQ/L (8-16); BLOOD UREA NITROGEN 7 MG/DL (7-18); CALCIUM LEVEL 7.9 MG/DL (8.5-10.1); CARBON DIOXIDE LEVEL 25 MEQ/L (21-32); CHLORIDE LEVEL 103 MEQ/L (98-107); CREATININE FOR GFR 0.48 MG/DL (0.55-1.02); GLOMERULAR FILTRATION RATE > 60.0 (>58); GLUCOSE, FASTING 115 MG/DL (70-105); POTASSIUM SERUM 3.4 MEQ/L (3.5-5.1); SODIUM LEVEL 139 MEQ/L (136-145)
[2017-03-22 14:16] VITALS: BP 157/98
== END 2017-03-22 14:19 | disposition home or self-care (01) ==
LOC: M ED 10:38
DX: F10.129 Alcohol abuse with intoxication, unspecified (principal); F44.5 Conversion disorder with seizures or convulsions; F17.200 Nicotine dependence, unspecified, uncomplicated; Z79.899 Other long term (current) drug therapy; Z88.1 Allergy status to other antibiotic agents; Z88.6 Allergy status to analgesic agent; Z88.2 Allergy status to sulfonamides

== ENCOUNTER 2017-05-31 07:08 | Inpatient (IN) | payer OTHER ==
[~2017-05-31] VITALS: Ht 152.4 cm; Wt 82.4 kg
[~2017-05-31 07:08] MED LIST changes: +AZIT-12 PO; -AZIT250T3 PO; +BACITAB PO; -BACITAB3 PO; -FOLI1TAB2 PO; +FOLI1TAB4 PO; -HYDR-4274 PO; +HYDR50TA70 PO; +LAMI1TAB9 PO; -LAMI200T3 PO; +LEVO500T3 PO; -LEVO500T32 PO; -MACR100C3 PO; +MACR100C43 PO; -MUCI600T34 PO; +MUCI600T37 PO; -NICO4GUM PO; +NICO4GUM2 PO; +PAXI20TA29 PO; +PAXI40TA10 PO; -PAXI40TA2 PO; -RISP3TAB18 PO; +RISP3TAB20 PO; +TRAZ50TA11 PO; -TRAZ50TA4 PO
[2017-05-31] MEDS ORDERED: NEOM1SUS13 (07:21)
[2017-05-31] MEDS ORDERED: QUET1TAB10 PO (07:21)
[2017-05-31] MEDS ORDERED: AMOX875T PO (07:21)
[2017-05-31] MEDS ORDERED: ONDANSETRON 4MG/2ML VIAL (J2405) IV ONE (08:15)
[2017-05-31] MEDS ORDERED: MORPHINE 4 MG/ML 1ML SYRINGE IV ONE ×2 (08:15→12:15)
[2017-05-31] MEDS ORDERED: LORazepam 1 MG TAB PO STA (08:34)
--- NOTE | 2017-05-31 08:52 | REP ---
REASON: Stroke like symptoms. COMPARISON: 12/19/2013. TECHNIQUE: 4.5 mm contiguous transaxial sections were obtained from the skull base to the cerebral convexities with thin cuts through the posterior fossa without the administration of intravenous contrast. FINDINGS: The ventricles and sulci are consistent with the patient's age. There are no extra-axial fluid collections. There is no mass effect. The deep cerebral white matter is consistent with the patient's age. The orbital and petrous structures, cerebellopontine angles, and posterior fossa are unremarkable. The sella turcica, cavernous, and paracavernous structures are essentially unremarkable. The visualized portions of the paranasal sinuses and mastoid air cells are clear. Images of the skull base show no gross abnormality. Minimal mucosal thickening is noted in the ethmoid bulla and sphenoid sinuses on the right, otherwise there has been no change from the prior exam. IMPRESSION: Essentially unremarkable CT examination of the brain. Signed by Deniz Leon DO 05/31/2017 10:38 A
--- NOTE | 2017-05-31 08:56 | REP ---
REASON: Stroke like symptoms. COMPARISON: 11/01/2016 There is a subtle patchy right lower lobe opacity seen on this PA view of the chest only. This represents a change from the prior exam. The pleural angles are sharp and the heart is not enlarged. The osseous structures are normal. IMPRESSION: Possible developing right lower lobe pneumonia. Signed by Deniz Leon DO 05/31/2017 10:38 A
[2017-05-31 09:15] LABS: BASO # 0.1 K/mm3 (0.0-0.2); BASO % 0.9 % (0.0-1.0); EOS # 0.2 K/mm3 (0.0-0.50); EOS % 2.9 % (0.0-3.0); LARGE UNSTAINED CELL # 0.2 K/mm3 (0.0-0.4); LARGE UNSTAINED CELL % 2.3 % (0.0-4.0); LYMPH # 2.3 K/mm3 (1.5-4.5); LYMPH % 33.9 % (24.0-44.0); MEAN CORPUSCULAR HEMOGLOBIN 32.8 pg (27.0-33.0); MEAN CORPUSCULAR HGB CONC 34.4 g/dl (32.0-36.5); MEAN CORPUSCULAR VOLUME 95.3 fl (80.0-96.0); MONO # 0.4 K/mm3 (0.0-0.8); MONO % 5.8 % (0.0-5.0); NEUTROPHILS # 3.7 K/mm3 (1.8-7.7); NEUTROPHILS % 54.2 % (36.0-66.0); PLATELET COUNT, AUTOMATED 276 k/mm3 (150-450); RED CELL DISTRIBUTION WIDTH 12.8 % (11.5-14.5); WHITE BLOOD COUNT 6.8 K/mm3 (4.0-10.0)
[2017-05-31 09:40] LABS: INR 0.84
[2017-05-31 09:48] LABS: ANION GAP 9 MEQ/L (8-16); BLOOD UREA NITROGEN 7 MG/DL (7-18); CALCIUM LEVEL 9.3 MG/DL (8.5-10.1); CARBON DIOXIDE LEVEL 25 MEQ/L (21-32); CHLORIDE LEVEL 104 MEQ/L (98-107); CREATININE FOR GFR 0.49 MG/DL (0.55-1.02); GLOMERULAR FILTRATION RATE > 60.0 (>58); GLUCOSE, FASTING 94 MG/DL (70-105); POTASSIUM SERUM 4.7 MEQ/L (3.5-5.1); SODIUM LEVEL 138 MEQ/L (136-145)
--- NOTE | 2017-05-31 10:39 | REP ---
REASON: Stroke-like symptoms with left-sided weakness, headache and facial numbness. COMPARISON EXAMINATION: None. The craniovertebral junction is normal. The imaged portion of the spinal cord and neural canal are within normal limits. The ventricles and sulci are within normal limits. There is motion artifact obscuring the imaged detail on all images. There are no extra-axial fluid collections. There is no shift in the midline structures. Scattered T2 and FLAIR signal hyperintensities are seen throughout the deep cerebral white matter of the coronal radiata and centrum semiovale bilaterally. The orbital and petrous structures, cerebellopontine angles, and posterior fossa are within normal limits. The sella turcica, cavernous, and paracavernous structures are within normal limits. Minimal mucosal thickening is seen in the sphenoid sinuses. The mastoid air cells are clear. There is no abnormal signal seen on DWI or ADC mapped imaging that would be considered consistent with an area of restricted diffusion from an acute CVA. IMPRESSION: Deep white matter signal hyperintensities possibly representing a demyelinating disorder such as multiple sclerosis. This needs to be correlated clinically with appropriate followup. Signed by Deniz Leon DO 05/31/2017 10:40 A
--- NOTE | 2017-05-31 10:41 | REP ---
REASON: Left-sided weakness, facial pain, headaches. PRIORS: None. MRA BRAIN: TECHNIQUE: MIP reformatted 3D images of the [place] and proximal intracranial vasculature were obtained. The source images were obtained in the axial scan plane using gradient-echo technique. FINDINGS: There is no evidence of an aneurysm or AVM. Perfusion to the hemispheres is symmetric. There is no evidence of significant signal decrease that would be considered consistent with an area of occlusion or severe stenosis. IMPRESSION: Unremarkable brain MRA. 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 Signed by Deniz Leon DO 05/31/2017 12:06 P
[2017-05-31] MEDS ORDERED: methylPREDNISolone INJ 125 MG/2 ML VIAL (J2930) IV ONE (11:15)
[2017-05-31] MEDS ORDERED: methylPREDNISolone 1,000 MG, VIAL MATE ADAPTER 1 EACH in D5W 250 ML IV ONE (11:30)
[2017-05-31] MEDS ORDERED: PROB1TAB PO (11:38)
[2017-05-31] MEDS ORDERED: CETI10TA PO (11:38)
[2017-05-31] MEDS ORDERED: HYOS1TAB SL (11:38)
[2017-05-31] MEDS ORDERED: LAMO150T PO (11:38)
[2017-05-31] MEDS ORDERED: CETIRIZINE (ZyrTEC) 10 MG TAB PO PRN (14:15)
[2017-05-31] MEDS ORDERED: HYOSCYAMINE SULFATE 0.125 MG SUBL TABLET SL PRN (14:15)
[2017-05-31] MEDS ORDERED: ONDANSETRON 4MG/2ML VIAL (J2405) IV PRN (14:15)
[2017-05-31] MEDS ORDERED: ACETAMINOPHEN TAB 650MG DOSE (2X325MG) PO PRN (14:15)
[2017-05-31] MEDS ORDERED: IPRATROPIUM 0.5MG/ALBUTEROL 2.5MG INH SOL UD 3ML (DUONEB)(J7620) NEB PRN (15:00)
[2017-05-31] MEDS ORDERED: LORazepam 2 MG/ML VIAL (J2060) IV ONE (15:15)
[2017-05-31 15:37] LABS: GLUCOSE CSF 82 MG/DL (40-75)
[2017-05-31 15:49] LABS: APPEARANCE, CSF HAZY (CLEAR); COLOR, CSF COLORLESS (COLORLESS); CSF DIFF IF INDICATED? NO (NO); CSF TUBE# CELL CNT TUBE 1; RBC CSF AUTO 925 /mm3 (0-0); WBC CSF AUTO 7 /mm3 (0-10)
[2017-05-31 15:50] VITALS: BP 115/73
[2017-05-31 15:50] LABS: APPEARANCE, CSF CLEAR (CLEAR); COLOR, CSF COLORLESS (COLORLESS); CSF DIFF IF INDICATED? NO (NO); CSF DILUENT LOT # 6277; CSF TUBE# CELL CNT TUBE 4; RBC CSF AUTO 22 /mm3 (0-0); WBC CSF AUTO 1 /mm3 (0-10)
[2017-05-31 15:50] LABS: CSF DILUENT LOT # 6277
[2017-05-31 16:01] VITALS: BP 115/73
[2017-05-31] MEDS: NS 1,000 ML IV SCH (16:20)
[2017-05-31] MEDS: MORPHINE 2 MG/ML 1ML SYRINGE IV PRN ×2 (17:18→21:36)
--- NOTE | 2017-05-31 17:59 | HPE ---
DATE OF ADMISSION: 05/31/2017 TIME SEEN: This afternoon around 1430. PRIMARY CARE PROVIDER: Keri Hou. PSYCHIATRY: February CHIEF COMPLAINT: Headache. HISTORY OF PRESENT ILLNESS: A 51-year-old female with past medical history of chronic obstructive pulmonary disease (COPD), history of Clostridium (C.) difficile, history of alcoholism, bipolar, anxiety, depression, and posttraumatic stress disorder (PTSD), and also agoraphobia, also history of seizure from alcohol withdrawal, presented with severe headache mostly on the left side, associated with pain along the entire left arm, left shoulder, neck, and leg. The patient also had weakness only on the left side upper and lower extremities. The patient stated that the pain started while she was lying flat, and when it improved during the night. However, in the morning when she woke up, the pain progressed. The patient admits to similar symptoms in the past; however, it was never this severe. She also admits to increased tiredness for the past four weeks. The patient never has seen a neurologist in the past. She had a seizure in the past from alcohol withdrawal. She also had a recent left ear infection and was placed on amoxicillin. She was on day five today of a 10-day course. While she was in the emergency room, she received 2 grams of Solu-Medrol,1 mg of Ativan, 4 mg of Zofran, and also 4 mg of morphine. The patient stated that her pain has improved; however, her numbness and weakness stayed the same. The denies any change of vision; however, she does have bilateral eye blurriness at baseline for the past few months. The left side was greater than the right side. She also stated the numbness does not cross the midline of her head. All the numbness mostly is based on her left side. The patient otherwise denies any chest pain, trouble breathing, abdominal pain, nausea, vomiting, diarrhea, constipation. Denies any problem with urination. Denies any swelling in the lower extremities or any rash anywhere. Denies any fever or chills. ALLERGIES: The patient is allergic FLAGYL and SULFA, which give her severe itchiness and make her swell up. However, no airway compromise. She gets a stomach ache with NAPROXEN. HOME MEDICATIONS: - Tylenol 650 mg one tablet by mouth every four hours as needed - Ventolin two puff inhalation every four hours as needed - amoxicillin 875 mg one tablet by mouth twice a day - cetirizine 10 mg one tablet by mouth daily - clonazepam 0.5 mg one tablet three times a day as needed - hyoscyamine sulfate 0.125 mg sublingual every six hours as needed for cramps - lamotrigine 150 mg one tablet by mouth twice a day - multivitamin one tablet by mouth daily - pantoprazole 40 mg one tablet by mouth daily - Paxil 30 mg one tablet by mouth daily - probiotic one tablet by mouth daily - quetiapine 300 mg one tablet by mouth at bedtime - vitamin D 50,000 units by mouth every weekly PAST MEDICAL HISTORY: 1. COPD. 2. C. difficile. 3. Hypokalemia. 4. History of alcoholism with withdrawal and also withdrawal seizure. 5. History of bipolar. 6. Depression and anxiety. 7. Agoraphobia. 8. PTSD. PAST SURGICAL HISTORY: The patient had a laparoscopic cholecystectomy. SOCIAL HISTORY: The patient smokes one-half pack per day for the past 35 years. Denies any drinking. The patient has been sober for 10 weeks. Used to drink heavily. The patient stated that she was a binge drinker. The patient denies any recreational drug use. The patient has a cat at home. She does stay with a partner. FAMILY HISTORY: Mother had breast cancer. Father had hypertension and at 62 from a heart attack. REVIEW OF SYSTEMS: General: The patient had a 10-pound weight loss over the past 2-3 months. However, she states it was intentional and she has been on a diet. The patient denies any recent traveling, sick contact, any fever or chills. The patient does admit to generalized weakness, started four weeks ago, and has been feeling tired all the time; however, she was able to perform all activities of daily living by herself. HEENT: Denies any recent change of vision, smell, hearing or taste. However, chronically she does have blurred vision and vision is worse on the left side, and she did see optometry believed it was abnormal. Cardiovascular: Denies any chest pain, trouble breathing. Denies any palpitations. Pulmonary: The patient stated that she has COPD, bronchitis from smoking. However, does not use any oxygen at home. Gastrointestinal (GI): Denies any abdominal pain, nausea, vomiting, diarrhea, constipation, or any blood in the stool. Genitourinary (): Denies any dysuria, blood in the urine. Musculoskeletal: Admits to pain on the entire left side including joints and muscle, and it is worse with movement and not improved with anything. Hematology/oncology: Denies any easy bruising, any bleeding anywhere. Endocrine: Denies any polydipsia, polyuria. The patient does feel hot all the time, however. Psychiatric: Admits to anxiety, depression and PTSD. Neurologic: As stated above, the patient has entire left-sided weakness and pain and also numbness, and the patient also has a severe headache which is mostly on the left side. PHYSICAL EXAMINATION: VITAL SIGNS: Temperature 97.2, pulse 79, respirations 18, blood pressure 115/73, oxygen saturation 93% on room air. GENERAL: The patient is morbidly obese, middle-aged female who is alert, awake, oriented times three. Does not appear to be in distress, lying comfortably in bed with head elevated at 30 degrees. HEENT: Normocephalic, atraumatic. Extraocular muscles intact. Mucus moist. NECK: Supple. No neck lymphadenopathy. CARDIOVASCULAR: Distant heart sounds due to increased anterior-posterior (AP) diameter and body habitus. Otherwise normal S1, S2. Regular rate and rhythm. LUNGS: Slight wheezing bilaterally. Chests rises equally bilaterally. There is increased AP diameter. GI: Obese. Positive bowel sounds. Soft, nontender, nondistended. No peritoneal signs, no ecchymosis. EXTREMITIES: No edema, clubbing or cyanosis. SKIN: Warm and dry. NEUROLOGIC: The patient's eyebrows raise equally bilaterally. Nose was symmetrical. Tongue protruding was midline. Gripping strength of hands bilaterally shows worse on the left side. Patient's muscle strength was also reduced to about a 4/5 for the left upper extremity, and all other three extremities were 5/5. The patient did have reduced sensation on the entire left side, and the deep tendon reflex has been reduced on the left side as well. However, Babinski has been negative on both sides. LABORATORY DATA: WBC 6.8, hemoglobin 14.2, hematocrit 41.4, with platelet count of 276. MCV 95, neutrophil percentage was 54, lymphocyte percentage was 33, monocyte percentage was 5.8. Sodium 138, potassium 4.7, chloride 104, bicarbonate 25, anion gap 9, BUN 7, creatinine was low 0.49, GFR greater than 60, fasting glucose 94, calcium 9.3. Total CK 51, CK-MB 1, troponin less than 0.02. TSH 1.11. PT 11.5, INR 0.84. PTT 32.6. The patient's cerebrospinal fluid (CSF) shows haziness for tube one, and tube four appears to be clear. CSF WBC was one in tube four, and RBC was only 22 in tube four. CSF glucose was 82 in tube one, and total protein was 33 in tube four. The patient's CSF for Gram's stain and CSF for cultures are pending. The patient had a CT head in the emergency room initially, shows unremarkable CT of the head. She also had portable chest x-ray that shows possible developing right lower lobe pneumonia. Brain MRI shows a mild basilar arterial dolichoectasia. Further MRA of the brain , and the MRI of the brain without contrast shows deep white matter signal hyperintensity possibly representing a demyelinating disorder such as multiple sclerosis. ASSESSMENT AND PLAN: A 51-year-old female with past medical history of chronic obstructive pulmonary disease (COPD), bronchitis, Clostridium (C.) difficile, hypokalemia, history of alcoholism recently quit, has a history of alcohol withdrawal and withdrawal seizure, also history of bipolar, depression, anxiety and posttraumatic stress disorder (PTSD, agoraphobia, and also morbid obesity, presented with: 1. Entire left-sided numbness and severe headache with entire left-sided weakness possible secondary to multiple sclerosis. Dr. Rivers from neurology was consulted. Emergency physician has already given the patient 2 grams of Solu-Medrol. At this point, the patient has not noticed any difference. However, the pain was less with intravenous (IV) morphine. The patient also received Ativan 1 mg. A lumbar puncture was performed in the emergency room as well. Cerebrospinal fluid (CSF) analysis has been ordered. The myelin protein oligoclonal bands are pending. At this point, we will continue her psychiatric medications. Will place the patient on neurologic checks every four hours, aspiration, seizure and fall precautions, and we will continue Solu-Medrol one gram every day for the next two days. The patient has been started on a low-maintenance fluid due to we would like to keep her on clear liquid diet for at least tonight to observe her for seizure precaution, and also a repeat MRI has been ordered, this time with contrast, which will provide us additional information. 2. Recent left ear infection, with also bleeding from the left ear. The patient has been started on amoxicillin outpatient five days ago. We will continue to finish the 10-day course and continue to monitor the patient for any signs of infection. 3. History of chronic obstructive pulmonary disease (COPD). Continue patient on DuoNeb as needed and every eight hours. 4. History of Clostridium (C.) difficile. The patient does not have any diarrhea currently. 5. History of hypokalemia. The patient's potassium is 4.7, stable. Continue to monitor. 6. History of alcoholism with alcohol withdrawal seizure. The patient's last alcohol consumption was 10 weeks ago per patient. We will continue to monitor for any signs of withdrawal and will start as needed medication if needed. 7. Multiple psychiatric history with bipolar, depression, anxiety, agoraphobia and PTSD. The patient has been continued on her home medications. Will continue to monitor. 8. Morbid obesity. Questionable obstructive sleep apnea. However, the patient has never been diagnosed with it. We will continue standard pulse oximetry check. Currently saturating at 93% on room air. 9. Deep venous thrombosis (DVT) physical examination with heparin subcutaneously. Currently with Lovenox 40 mg daily. DISPOSITION: The patient has symptoms and MRI finding resembling multiple sclerosis. Dr. Rivers has been consulted. We will follow his recommendations. Will followup with the CSF analysis as well, and continue precautions for now. The patient has been discussed with attending, Dr. Anton. My preceptor for this patient encounter was Dr. Anton. The preceptor was physically present in the building during the encounter and was fully available as needed. All aspects of the patient interview, examination, medical decision making process, and medical care plan development were reviewed and approved by the preceptor. The preceptor is aware and concurs with the plan as stated in the body of this note and will attest to such by his/her co-signature. KM
[2017-05-31] MEDS: IPRATROPIUM 0.5MG/ALBUTEROL 2.5MG INH SOL UD 3ML (DUONEB)(J7620) NEB SCH (20:00)
[2017-05-31] MEDS: lamoTRIgine 100MG TAB PO SCH (20:39)
[2017-05-31] MEDS: SENOKOT S TAB PO SCH ×2 (20:39→21:00)
[2017-05-31] MEDS: AMOXICILLIN 875 MG TAB PO SCH (20:39)
[2017-05-31] MEDS: QUEtiapine FUMARATE 100 MG TAB PO SCH (20:40)
[2017-05-31] MEDS: clonazePAM 0.5 MG TAB PO PRN (20:47)
--- NOTE | 2017-05-31 21:00 | REPUSA ---
MRI of the brain Clinical history: headaches. Technique: Multiecho multiplanar MRI images of the brain were obtained after administration of 60 mm of Prohance intravenous contrast. Diffusion weighted images with ADC mapping was also obtained. Findings: The ventricles and sulci are symmetric bilaterally. The brain parenchyma demonstrates scattered small foci of T2 hyperintensity throughout the subcortical white matter. There is no midline shift, mass e ffect, or extra-axial fluid collection. The midline intracranial structures do not demonstrate any gr oss abnormalities. The cervical cranial junction is intact. The orbits are unremarkable. The visualiz ed paranasal sinuses and mastoid air cells are clear. The osseous structures and superficial soft tis sues are unremarkable. The vascular structures demonstrate appropriate flow voids. The vascular struc tures enhancing appropriately on postcontrast images. No focal abnormal area of enhancement is apprec iated. Impression: 1. No acute infarct or hemorrhage identified. T2 signal changes in the subcortical white matter bilat erally is noted. Differential diagnosis includes chronic small vessel ischemic disease versus a demye linating process such as multiple sclerosis. Follow-up is recommended as clinically indicated. 2. No abnormal area of focal enhancement appreciated.
[2017-05-31 22:00] VITALS: BP 119/65
--- NOTE | 2017-06-01 02:33 | ECGEPIP ---
Stationary ECG Study [facility] - ED Test Date: 2017-05-31 Pat Name: ANDRES JAMA Department: Room: - Gender: F Library Associate: : 1965 Requested By: Rosetta Nix Order Number: [id number] Reading MD: Kwsei Dyson Measurements Intervals [place] Rate: 98 P: 33 NC: 136 QRS: 8 QRSD: 92 T: 53 QT: 349 QTc: 446 Interpretive Statements SINUS RHYTHM Electronically Signed On 06-01-2017 2:33:46 EDT by Kwesi Dyson
[2017-06-01 06:00] VITALS: BP 130/72
[2017-06-01 06:01] LABS: MEAN CORPUSCULAR HEMOGLOBIN 32.4 pg (27.0-33.0); MEAN CORPUSCULAR HGB CONC 33.8 g/dl (32.0-36.5); MEAN CORPUSCULAR VOLUME 95.9 fl (80.0-96.0); RED CELL DISTRIBUTION WIDTH 12.6 % (11.5-14.5); WHITE BLOOD COUNT 10.3 K/mm3 (4.0-10.0)
[2017-06-01 06:21] LABS: ANION GAP 9 MEQ/L (8-16); CALCIUM LEVEL 8.8 MG/DL (8.5-10.1); CARBON DIOXIDE LEVEL 25 MEQ/L (21-32); CHLORIDE LEVEL 106 MEQ/L (98-107); CREATININE FOR GFR 0.53 MG/DL (0.55-1.02); GLOMERULAR FILTRATION RATE > 60.0 (>58); GLUCOSE, FASTING 134 MG/DL (70-105); SODIUM LEVEL 140 MEQ/L (136-145)
[2017-06-01 06:41] LABS: BLOOD UREA NITROGEN 11 MG/DL (7-18)
[2017-06-01] MEDS: IPRATROPIUM 0.5MG/ALBUTEROL 2.5MG INH SOL UD 3ML (DUONEB)(J7620) NEB SCH ×2 (07:53→20:00)
[2017-06-01 08:00] VITALS: BP 130/72
[2017-06-01] MEDS: NS 1,000 ML IV SCH ×2 (08:06→23:41)
[2017-06-01] MEDS: LACTOBACILLUS ACIDOPHILUS CAP (BACID) PO SCH (08:07)
[2017-06-01] MEDS: PARoxetine 10MG TABLET PO SCH (08:07)
[2017-06-01] MEDS: AMOXICILLIN 875 MG TAB PO SCH ×2 (08:07→20:05)
[2017-06-01] MEDS: PANTOPRAZOLE 40MG TAB (PROTONIX) PO SCH (08:07)
[2017-06-01] MEDS: SENOKOT S TAB PO SCH ×2 (08:08→20:06)
[2017-06-01] MEDS: lamoTRIgine 100MG TAB PO SCH ×2 (08:08→20:05)
[2017-06-01] MEDS: ENOXAPARIN 40 MG/0.4 ML SYRINGE (J1650) SC SCH (08:15)
[2017-06-01] MEDS: MORPHINE 2 MG/ML 1ML SYRINGE IV PRN ×4 (08:16→21:04)
[2017-06-01] MEDS: LISINOPRIL 20 MG TAB PO SCH (08:16)
[2017-06-01] MEDS ORDERED: methylPREDNISolone INJ 40 MG/1 ML VIAL (J2920) IV SCH ×2 (09:00)
--- NOTE | 2017-06-01 09:31 | IPNPDOC ---
Subjective Date Seen The patient was seen on 06/01/17. Subjective Chief Complaint/HPI The patient is a 51-year-old female admitted with a reason for visit of Multiple Sclerosis Exacerbation. General: Denies: ROS Unobtainable, Chills, Night Sweats, Fatigue, Malaise, Normal Appetite, Other Symptoms Constitutional: Denies: Chills, Fever, Malaise, Night Sweats, Weakness, Fatigue , Weight Loss, Lethargy, Other Eyes: Denies: Pain, Vision change, Conjunctivae inflammation, Eyelid inflammation, Redness, Other ENT: Reports: Head Aches, Denies: Ear Pain, Dysphagia, Sinus Congestion, Post Nasal Drip, Sore Throat, Epistaxis, Other Symptoms Skin: Denies: Rash, Lesions, Jaundice, Bruising, Itching, Dry, Breakdown, Nail Changes, Other Pulmonary: Denies: Dyspnea, Cough, Pleuritic Chest Pain, Other Symptoms Cardiovascular: Denies: Chest Pain, Palpitations, Orthopnea, Paroxysmal Noc. Dyspnea, Edema, Lt Headedness, Other Symptoms Gastrointestinal: Denies: Nausea, Vomiting, Abdominal Pain, Diarrhea, Constipation, Melena, Hematochezia, Other Symptoms Genitourinary: Denies: Dysuria, Frequency, Incontinence, Hematuria, Retention, Other Symptoms Neurological: Reports: Weakness (left upper/lower extremity weakness) Objective Physical Examination General Exam: Positive: Alert, Cooperative, No Acute Distress Eye Exam: Positive: PERRLA, Conjunctiva & lids normal, EOMI ENT Exam: Positive: Atraumatic Neck Exam: Positive: Supple Chest Exam: Positive: Clear to auscultation, Normal air movement Heart Exam: Positive: Rate Normal, Regular Rhythm Abdomen Exam: Positive: Normal bowel sounds, Soft, Other (obese), Negative: Tenderness Neuro Exam: Positive: Normal Speech, Negative: Strength at 5/5 X4 ext (diminished strength left upper/lower extremities) Psych Exam: Positive: Oriented x 3 Assessment /Plan Problems (1) Weakness Status: Acute Response to Treatment: Improving Discussed With: Patient Problem Specific Plan: Consult Specialist, Monitor Clinically Problem Text: Etiology not clear. Possibly MS. Neurology consultation pending, for now will continue with steroid therapy. LP completed. CSF unrevealing thus far, but further results still pending. (2) COPD (chronic obstructive pulmonary disease) Status: Chronic Discussed With: Patient Problem Specific Plan: Monitor Clinically (3) Alcohol abuse Status: Chronic Discussed With: Patient Problem Specific Plan: Monitor Clinically (4) Psychiatric disorder Status: Chronic Discussed With: Patient Problem Specific Plan: Monitor Clinically Problem Text: Multiple psychiatric diagnosis including anxiety, depression, bipolar disorder, agoraphobia and PTSD. Receiving paxil, seroquel, klonopin prn as per home regimen. (5) Nicotine abuse Status: Chronic Discussed With: Patient (6) Ear infection Status: Acute Discussed With: Patient Problem Specific Plan: Monitor Clinically Problem Text: Continue with amoxicillin as per home regimen. Plan/VTE VTE Prophylaxis Ordered?: Yes (lovenox) Plan Diet: Advance Activity: Continue Current Therapy: PT, OT Diagnostics: Repeat Labs in AM VS, I&O, 24H, Fishbone Vital Signs/I&O Vital Signs Date Time Temp Pulse Resp B/P (MAP) Pulse Ox O2 Delivery O2 Flow Rate FiO2 06/01/17 08:16 18 Room Air 06/01/17 08:16 134/72 06/01/17 06:00 97.3 92 92 I&O- Last 24 Hours up to 6 AM 06/01/17 06:00 Intake Total 893 ml Output Total 800 ml Balance 93 ml Laboratory Data 24H LABS Laboratory Tests 2 05/31/17 14:55: CSF Appearance HAZYH, CSF Color COLORLESS, CSF WBC (Auto) 7, CSF RBC (Auto) 925H , CSF Cell Count Tube # TUBE 1 05/31/17 14:57: CSF Glucose (Tube 1) TUBE 1, CSF Total Protein (Tube 1) TUBE 4, CSF Glucose 82H , CSF Total Protein 33.0 05/31/17 14:59: CSF Appearance CLEAR, CSF Color COLORLESS, CSF WBC (Auto) 1, CSF RBC (Auto) 22H , CSF Cell Count Tube # TUBE 4 06/01/17 05:26: Anion Gap 9, Glomerular Filtration Rate > 60.0, Blood Urea Nitrogen 11#, Creatinine 0.53L, Sodium Level 140, Potassium Level 4.0, Chloride Level 106, Carbon Dioxide Level 25, Calcium Level 8.8 CBC/BMP Laboratory Tests 06/01/17 05:26 Red Blood Count 4.07, Mean Corpuscular Volume 95.9, Mean Corpuscular Hemoglobin 32.4, Mean Corpuscular Hemoglobin Concent 33.8, Red Cell Distribution Width 12.6 , Calcium Level 8.8 Microbiology Microbiology 05/31/17 Gram Stain - Final, Resulted 05/31/17 CSF Culture, Resulted Pending BRADLEY NICOLAS MD Jun 01, 2017 09:31
[2017-06-01] MEDS: methylPREDNISolone 1,000 MG, VIAL MATE ADAPTER 1 EACH in D5W 250 ML IV SCH (11:29)
[2017-06-01 14:00] VITALS: BP 105/56
[2017-06-01] MEDS: TOPIRAMATE (TopAMAX) 25 MG TAB PO SCH (14:29)
[2017-06-01] MEDS: QUEtiapine FUMARATE 100 MG TAB PO SCH (20:05)
[2017-06-01] MEDS: clonazePAM 0.5 MG TAB PO PRN (20:06)
--- NOTE | 2017-06-01 20:16 | CR ---
DATE OF CONSULTATION: 06/01/2017 REFERRING PHYSICIAN: Dr. Fernando Anton REASON FOR CONSULTATION: Severe headache and left-sided numbness and weakness. HISTORY OF PRESENT ILLNESS: Yesenia Melgar is a 51-year-old woman with history of posttraumatic stress disorder, anxiety, depression, bipolar disorder, history of alcohol related seizures who presented to [facility] with headaches lasting for 3 weeks. Headache was left-sided, pounding in character, with blurred vision 6-8 out of 10 in intensity. The day before she came to the hospital she had severe left arm pain which was 10/10 intensity. She woke up on the day of admission and had numbness of left side of face. She felt her left leg was weak. She felt tingling in her left foot. Her left arm was painful. She states that she had occasional headaches in past. She feels fatigued. He denies any neck or back pain. She denies dysphagia, dysarthria, diplopia or urinary incontinence. She denies any falls or loss of consciousness. She denies any head injuries. The patient has been getting morphine while she is in the hospital and states that helps her headache. PAST MEDICAL HISTORY: Bipolar disorder, COPD, alcohol related seizure, anxiety, depression, agoraphobia, posttraumatic stress disorder, cholecystectomy. ALLERGIES: SULFA, FLAGYL, NAPROXEN. HOME MEDICATIONS: - Ventolin inhaler 2 puffs every 4 hours as needed - amoxicillin 875 mg by mouth twice a day - cetirizine 10 mg by mouth daily - Klonopin 0.5 mg by mouth three times a day as needed - Lamictal 150 mg by mouth twice a day - Protonix 40 mg by mouth daily - Paxil 30 mg by mouth daily - Seroquel 300 mg by mouth nightly - vitamin D3 50,000 units once a week SOCIAL HISTORY: She smokes one half pack per day. She states that she has been sober from alcohol for 10 weeks. She used to drink alcohol heavily. FAMILY HISTORY: Mother had breast cancer. Father had hypertension and of heart disease. REVIEW OF SYSTEMS: All systems were reviewed and found to be noncontributory except as mentioned in history present illness. PHYSICAL EXAMINATION: Temperature 97.3, blood pressure 134/72, 92% saturation on room, respiratory rate 16. Heart: Regular rate and rhythm. Lungs: Clear to auscultation. Abdomen: Soft, nontender, nondistended. No pedal edema. No gross musculoskeletal abnormalities. Ear, nose, throat examination is within normal limits. She is awake, alert, oriented to place, person and time. Normal speech comprehension and repetition. Extraocular muscles are intact. No facial weakness. Tongue and uvula are midline. Recent and distant memory is intact. No signs of meningeal irritation. 5/5 strength on right side and left-sided strength is 4/5 with intermittent activation and pain. Plantars are downgoing. She has normal light touch, pinprick vibration, sensation, etc. Deep tendon reflexes 2+ throughout. Her gait is antalgic. DIAGNOSTIC STUDIES: Her MRI scan of brain with and without contrast was reviewed and showed few nonspecific white matter foci which can be seen with migraines, small vessel ischemic disease of brain or demyelinating disease of brain. There was no contrast enhancement. Her spinal tap showed normal WBCs and protein. Oligoclonal bands are pending. ASSESSMENT: 1. Migraine, with aura, not intractable, with status migrainosus. 2. Episodic tension headaches, not intractable. 3. There is concern for demyelinating disease of brain, although my suspicion of index is low. 4. Small vessel ischemic disease of brain and migraines can also cause mild white matter changes. PLAN: 1. Finish Solu-Medrol 1 gram intravenous daily for 3 days and tomorrow will be her last dose. She can be discharged home and follow with our office in a month for further workup. 2. EMG nerve conduction study of left arm and leg on outpatient basis. 3. Topamax 50 mg by mouth daily. 4. Tylenol 650 mg by mouth three times a day as needed. Await results of her oligoclonal bands on cerebrospinal fluid.
[2017-06-01 22:00] VITALS: BP 124/65
[2017-06-02 05:43] LABS: MEAN CORPUSCULAR HEMOGLOBIN 32.3 pg (27.0-33.0); MEAN CORPUSCULAR HGB CONC 33.3 g/dl (32.0-36.5); MEAN CORPUSCULAR VOLUME 97.2 fl (80.0-96.0); WHITE BLOOD COUNT 14.1 K/mm3 (4.0-10.0)
[2017-06-02 06:00] VITALS: BP 133/84
[2017-06-02 06:02] LABS: ANION GAP 8 MEQ/L (8-16); BLOOD UREA NITROGEN 14 MG/DL (7-18); CALCIUM LEVEL 8.1 MG/DL (8.5-10.1); CARBON DIOXIDE LEVEL 25 MEQ/L (21-32); CHLORIDE LEVEL 111 MEQ/L (98-107); GLOMERULAR FILTRATION RATE > 60.0 (>58); GLUCOSE, FASTING 137 MG/DL (70-105); POTASSIUM SERUM 3.8 MEQ/L (3.5-5.1); SODIUM LEVEL 144 MEQ/L (136-145)
[2017-06-02] MEDS: MORPHINE 2 MG/ML 1ML SYRINGE IV PRN ×2 (06:41→12:12)
[2017-06-02] MEDS: IPRATROPIUM 0.5MG/ALBUTEROL 2.5MG INH SOL UD 3ML (DUONEB)(J7620) NEB SCH (08:00)
[2017-06-02] MEDS: lamoTRIgine 100MG TAB PO SCH (08:35)
[2017-06-02] MEDS: TOPIRAMATE (TopAMAX) 25 MG TAB PO SCH (08:35)
[2017-06-02] MEDS: AMOXICILLIN 875 MG TAB PO SCH (08:35)
[2017-06-02] MEDS: ENOXAPARIN 40 MG/0.4 ML SYRINGE (J1650) SC SCH (08:35)
[2017-06-02] MEDS: PARoxetine 10MG TABLET PO SCH (08:35)
[2017-06-02 08:36] VITALS: BP 133/84
[2017-06-02] MEDS: PANTOPRAZOLE 40MG TAB (PROTONIX) PO SCH (08:36)
[2017-06-02] MEDS: LISINOPRIL 20 MG TAB PO SCH (08:36)
[2017-06-02] MEDS: LACTOBACILLUS ACIDOPHILUS CAP (BACID) PO SCH (08:37)
[2017-06-02] MEDS: SENOKOT S TAB PO SCH (08:37)
[2017-06-02] MEDS ORDERED: TOPA1TAB PO (09:17)
[2017-06-02] MEDS ORDERED: OXYC1TAB23 PO (10:17)
--- NOTE | 2017-06-02 11:28 | DSES ---
DATE OF ADMISSION: 05/31/2017 DATE OF DISCHARGE: 06/02/2017 Time patient was seen was this morning at 10:00 a.m. DIAGNOSES: 1. Left sided numbness with severe headache, possible multiple sclerosis. 2. Recent left ear infection. 3. Chronic obstructive pulmonary disease (COPD). 4. History of Clostridium (C.) difficile. 5. History of hypokalemia. 6. History of alcoholism and alcohol withdrawal seizure. 7. Multiple psychiatric history, including bipolar, depression, anxiety, agoraphobia, posttraumatic stress disorder (PTSD). 8. Morbid obesity. DISCHARGE DIAGNOSES: 1. Left sided weakness, possibly secondary to complex migraine versus multiple sclerosis. 2. COPD. 3. Alcohol abuse. 4. Psychiatric disorders. 5. Nicotine abuse. 6. Ear infection. CONSULTANTS: Dr. Rivers from neurology. PROCEDURES AND IMAGING: The patient had a CT of the head on 05/31/2017 without contrast that shows unremarkable brain. She had a chest x-ray on the same day that showed possible developing right lower lobe pneumonia. 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 On the same day, she had MRI of the brain without contrast that shows hyperintensity, possibly representing demyelinating disorder, such as multiple sclerosis. Later during the day she had a MRI of the brain without contrast that showed T2 signal changes in the subcortical white matter bilaterally. Differential diagnosis including chronic small vessel ischemic disease versus demyelinating process, such as multiple sclerosis. LABORATORIES PENDING: Including, protein C and S activity, antithrombin III, myelin protein, oligoclonal bands, serum and CSF. IHSAN, atypical ANCA, C-ANCA, P-ANCA, SS-A/Ro and SS-B lab, anticardiolipin IgA, IgG, IgM. HISTORY OF PRESENT ILLNESS: 51-year-old female with a past medical history of chronic obstructive pulmonary disease (COPD), Clostridium (C.) difficile, alcoholism, bipolar, anxiety, depression, posttraumatic stress disorder (PTSD), agoraphobia and history of alcohol withdrawal seizure, presented with severe headache, mostly on the left side, associated with pain on the entire left side and also weakness. The patient stated that symptoms started while the patient was lying flat and improved during the night; however, got worse again first thing in the morning. She stated similar symptoms in the past; however, was never this severe. She admits to increased tiredness for the past 4 weeks as well. She has never seen neurologist, per patient. She also had a seizure in the past from alcohol withdrawal. She also had a recent left ear infection and was placed on amoxicillin, she is on day #5 of a 10-day course. While she was in the emergency room, she received 2 grams of Solu-Medrol, 1 mg of Ativan, 4 mg of Zofran, 4 mg of morphine. The patient stated that the pain has improved; however, the numbness and weakness remain the same. Denies any change of vision ; however, she does have eye blurriness at baseline for the past few months, left greater than right. Was seen by opthalmology. The patient stated that the numbness does not cross midline and mostly on the left side. Otherwise, she denies any chest pain, trouble breathing, abdominal pain, nausea, vomiting, diarrhea, or constipation. Denies any problem with urination. Denies any swelling in the lower extremities or rash anywhere. Denies any fever or chills. HOSPITALIZATION COURSE: On the day of admission, the patient had a CT of the head and MRI of the head. MRI of the head shows possible multiple sclerosis. Dr. Rivers from neurology was consulted who recommended to continue the IV Solu-Medrol 1 gram daily for three days total. The patient's antibiotic was continued for ear infection. Pain medication was continued. On 06/02/2017, Dr. Rivers has agreed for the patient to go home and followup with him outpatient in 1 month. The patient also passed physical therapy (PT), occupational therapy (OT) and speech therapy. Discharge to home. DISCHARGE CONDITION: Stable. DISCHARGE MEDICATIONS: Including: - Topamax 50 mg by mouth daily - Percocet one tablet every 6 hours as needed Continue home medications including: - Tylenol 650 mg one tablet every four hours as needed - Ventolin two puff inhalation every 4 hours as needed - amoxicillin 875 mg one tablet by mouth twice a day - cetirizine 10 mg one tablet by mouth daily as needed - clonazepam 0.5 mg one tablet by mouth three times a day as needed - hyoscyamine 0.125 mg sublingual every 6 hours as needed - lamotrigine 150 mg one tablet by mouth twice a day - Lisinopril 20 mg one tablet by mouth daily - multivitamin one tablet by mouth daily - pantoprazole 40 mg one tablet by mouth daily - Paxil 30 mg one tablet by mouth daily - Probiotic one tablet by mouth daily - quetiapine 300 mg one tablet by mouth at night - vitamin D 50,000 units one tablet by mouth weekly FOLLOWUP: The patient should followup with primary care provider within 1 week and followup with Dr. Rivers within 1 month. ADDITIONAL INSTRUCTIONS: If the patient develops increased left sided weakness that does not resolve on its own and if the patient develops any additional symptoms, the patient should call primary care provider or go to the emergency room. The patient has been discussed with attending doctor, Dr. Anton. My preceptor for this patient encounter was Dr. Anton. The preceptor was physically present in the building during the encounter and was fully available. As needed, all aspects of the patient interview, examination, medical decision making process, and medical care plan development were reviewed and approved by the preceptor. The preceptor is aware and concurs with the plan as stated in the body of this note and will attest to such by his/her cosignature. Edited: val 06/03/2017 1332 MTDD
[2017-06-02] MEDS: methylPREDNISolone 1,000 MG, VIAL MATE ADAPTER 1 EACH in D5W 250 ML IV SCH (12:11)
[2017-06-07 08:07] LABS: APTT 27.8 sec (.); Anticardiolipin Ab, IgA <10 APL (.); DRVTT Screen Seconds 32.9 sec (.)
[2017-06-10 12:53] LABS: MYELIN BASIC PROTEIN, CSF 2.2
[2017-08-30] MEDS ORDERED: NORT25CA2 PO (10:45)
[2017-08-30] MEDS ORDERED: NORC1TAB4 PO (10:47)
== END 2017-06-02 14:14 | disposition home or self-care (01) | DRG 54 ==
LOC: M ED 07:08 → M ED INP 13:12 → M MSPAV 15:56
PROVIDERS: ADMIT Internal Medicine; ATTEND Internal Medicine
DX: G43.101 Migraine with aura, not intractable, with status migrainosus (principal); E66.01 Morbid (severe) obesity due to excess calories; R53.1 Weakness; J44.9 Chronic obstructive pulmonary disease, unspecified; F17.210 Nicotine dependence, cigarettes, uncomplicated; I73.9 Peripheral vascular disease, unspecified; F40.00 Agoraphobia, unspecified; F31.9 Bipolar disorder, unspecified; F43.10 Post-traumatic stress disorder, unspecified; F41.8 Other specified anxiety disorders; F10.21 Alcohol dependence, in remission; H66.92 Otitis media, unspecified, left ear; Z79.899 Other long term (current) drug therapy; Z88.2 Allergy status to sulfonamides; Z88.1 Allergy status to other antibiotic agents; Z88.6 Allergy status to analgesic agent; Z90.49 Acquired absence of other specified parts of digestive tract; Z80.3 Family history of malignant neoplasm of breast; Z82.49 Family history of ischemic heart disease and other diseases of the circulatory system; G44.219 Episodic tension-type headache, not intractable

== ENCOUNTER 2017-06-07 09:51 | Emergency (ER) | payer OTHER ==
[~2017-06-07] VITALS: Ht 152.4 cm; Wt 81.4 kg
[~2017-06-07 09:51] MED LIST changes: +AMOX875T PO; +HYOS1TAB SL; +LAMO150T PO; +NEOM1SUS13; +OXYC1TAB23 PO; +PROB1TAB PO; +QUET1TAB10 PO; +TOPA1TAB PO
[2017-06-07] MEDS ORDERED: KETOROLAC 30 MG/ML VIAL (J1885) IV ONE (10:45)
[2017-06-07] MEDS ORDERED: METOCLOPRAMIDE INJ 10MG/2ML VIAL (J2765) IV ONE (10:45)
[2017-06-07 13:08] VITALS: BP 115/57
[2017-08-30] MEDS ORDERED: NORT25CA2 PO (10:45)
[2017-08-30] MEDS ORDERED: NORC1TAB4 PO (10:47)
== END 2017-06-07 13:16 | disposition home or self-care (01) ==
LOC: M ED 09:51
DX: G43.909 Migraine, unspecified, not intractable, without status migrainosus (principal); J44.9 Chronic obstructive pulmonary disease, unspecified; F25.9 Schizoaffective disorder, unspecified; F43.10 Post-traumatic stress disorder, unspecified; E66.9 Obesity, unspecified; F10.10 Alcohol abuse, uncomplicated; F17.210 Nicotine dependence, cigarettes, uncomplicated; Z88.2 Allergy status to sulfonamides; Z88.8 Allergy status to other drugs, medicaments and biological substances; Z88.6 Allergy status to analgesic agent
CPT/HCPCS: 96374; 99284; J1885

== ENCOUNTER 2017-06-30 09:17 | Emergency (ER) | payer OTHER ==
[~2017-06-30] VITALS: Ht 152.4 cm; Wt 83.2 kg
[2017-06-30] MEDS ORDERED: ALPRAZolam 0.25 MG TAB PO ONE (10:00)
[2017-06-30] MEDS ORDERED: methylPREDNISolone INJ 125 MG/2 ML VIAL (J2930) IV ONE (10:00)
[2017-06-30 10:36] LABS: BASO # 0.1 K/mm3 (0.0-0.2); BASO % 1.2 % (0.0-1.0); EOS # 0.3 K/mm3 (0.0-0.50); EOS % 3.4 % (0.0-3.0); LARGE UNSTAINED CELL # 0.2 K/mm3 (0.0-0.4); LARGE UNSTAINED CELL % 1.7 % (0.0-4.0); LYMPH # 3.3 K/mm3 (1.5-4.5); MEAN CORPUSCULAR HEMOGLOBIN 32.3 pg (27.0-33.0); MEAN CORPUSCULAR VOLUME 94.9 fl (80.0-96.0); MONO # 0.5 K/mm3 (0.0-0.8); MONO % 5.4 % (0.0-5.0); NEUTROPHILS # 4.6 K/mm3 (1.8-7.7); NEUTROPHILS % 52.3 % (36.0-66.0); PLATELET COUNT, AUTOMATED 297 k/mm3 (150-450); RED CELL DISTRIBUTION WIDTH 13.2 % (11.5-14.5); WHITE BLOOD COUNT 8.8 K/mm3 (4.0-10.0)
[2017-06-30 11:06] LABS: ALBUMIN 3.9 GM/DL (3.2-5.2); ALBUMIN/GLOBULIN RATIO 0.95 (1.00-1.93); ALKALINE PHOSPHATASE 84 U/L (45-117); ALT/SGPT 19 U/L (12-78); ANION GAP 5 MEQ/L (8-16); AST/SGOT 27 U/L (15-37); BILIRUBIN,TOTAL 0.3 MG/DL (0.2-1.0); BLOOD UREA NITROGEN 13 MG/DL (7-18); CALCIUM LEVEL 9.2 MG/DL (8.5-10.1); CARBON DIOXIDE LEVEL 29 MEQ/L (21-32); CHLORIDE LEVEL 104 MEQ/L (98-107); CREATININE FOR GFR 0.43 MG/DL (0.55-1.02); GLOMERULAR FILTRATION RATE > 60.0 (>58); GLUCOSE, FASTING 78 MG/DL (70-105); SODIUM LEVEL 138 MEQ/L (136-145)
[2017-06-30 11:10] LABS: POTASSIUM SERUM 5.4 MEQ/L (3.5-5.1)
[2017-06-30 11:33] VITALS: BP 129/72
--- NOTE | 2017-06-30 12:07 | ED PDOC ---
Post-Departure Follow-Up PRIOR TO 1200 TODAY, RECEIVED CALL FROM [facility] ADVISING THAT THE MACHINE WOULD BE UNDER REPAIR UNTIL AT LEAST [phone] TODAY. SPOKE WITH PT REGARDING PLAN WITH THIS AND ADVISED CAN CALL NEURO ON-CALL TO ASK FOR GUIDANCE. PT CAME OUT AND ADVISED HER ROOMMATE INFORMED HER SHE HAS AN APPT WITH DR. CARDOZA IN THE OFFICE TOMORROW AT 1530 AND SHE WOULD RATHER WAIT UNTIL THAT TIME FOR ANY MORE TESTING/IMAGING. ADVISED TO EXPLAIN TO DR. CARDOZA AT HER APPT THAT WE WERE UNABLE TO GET THE MRI STUDY DONE TODAY DUE TO PREPRESS OPERATOR AND TECHNICAL DIFFICULTIES. PT IN AGREEMENT WITH TX PLAN AT THIS TIME AND WILL SEE DR. CARDOZA IN THE OFFICE TOMORROW. SUZY SANTORO PA-C Jun 30, 2017 12:07
[2017-08-30] MEDS ORDERED: NORT25CA2 PO (10:45)
[2017-08-30] MEDS ORDERED: NORC1TAB4 PO (10:47)
== END 2017-06-30 12:07 | disposition home or self-care (01) ==
LOC: M ED 09:17
DX: R53.1 Weakness (principal); I10 Essential (primary) hypertension; K57.30 Diverticulosis of large intestine without perforation or abscess without bleeding; R51 Headache; F10.10 Alcohol abuse, uncomplicated; F41.9 Anxiety disorder, unspecified; F32.9 Major depressive disorder, single episode, unspecified; F43.10 Post-traumatic stress disorder, unspecified; J45.909 Unspecified asthma, uncomplicated; G35 Multiple sclerosis; F17.200 Nicotine dependence, unspecified, uncomplicated; Z79.899 Other long term (current) drug therapy; Z88.2 Allergy status to sulfonamides; Z88.6 Allergy status to analgesic agent; Z88.1 Allergy status to other antibiotic agents
CPT/HCPCS: 36415; 80053; 84443; 85025; 96374; 99284; J2930

== ENCOUNTER 2017-07-14 19:36 | Emergency (ER) | payer OTHER ==
[~2017-07-14] VITALS: Ht 152.4 cm; Wt 83.2 kg
[2017-07-14] MEDS ORDERED: predniSONE 20 MG TAB PO ONE (22:15)
[2017-07-14] MEDS ORDERED: ALBUTEROL SULFATE 2.5 MG/0.5 ML INH NEB SOLN NEB ONE (22:15)
[2017-07-14] MEDS ORDERED: PRED20TA PO (22:58)
[2017-07-14] MEDS ORDERED: DOXY-278 PO (22:58)
[2017-07-14 23:26] VITALS: BP 126/71
--- NOTE | 2017-07-15 08:04 | REP ---
PA and lateral chest: Comparisons are 05/31/2017 and 11/01/2016. The lung ventura are clear. The cardiac size is normal The timmy, mediastinum, and bony thorax are unremarkable. Impression: Negative PA and lateral chest. Signed by Mk Pierce MD 07/15/2017 07:55 A
[2017-08-30] MEDS ORDERED: NORT25CA2 PO (10:45)
[2017-08-30] MEDS ORDERED: NORC1TAB4 PO (10:47)
== END 2017-07-14 23:27 | disposition home or self-care (01) ==
LOC: M ED 19:36
DX: J44.0 Chronic obstructive pulmonary disease with (acute) lower respiratory infection (principal); J44.1 Chronic obstructive pulmonary disease with (acute) exacerbation; G35 Multiple sclerosis; I10 Essential (primary) hypertension; E78.5 Hyperlipidemia, unspecified; F43.10 Post-traumatic stress disorder, unspecified; F31.9 Bipolar disorder, unspecified; F41.9 Anxiety disorder, unspecified; F17.210 Nicotine dependence, cigarettes, uncomplicated; Z79.899 Other long term (current) drug therapy; Z88.8 Allergy status to other drugs, medicaments and biological substances; Z88.2 Allergy status to sulfonamides

== ENCOUNTER 2017-07-29 14:55 | Inpatient (IN) | payer OTHER ==
[~2017-07-29] VITALS: Ht 152.4 cm; Wt 97.3 kg
[~2017-07-29 14:55] MED LIST changes: +DOXY-278 PO
[2017-07-29] MEDS ORDERED: TEMA15CA2 PO (15:17)
[2017-07-29] MEDS ORDERED: BREO1INH INH (15:17)
[2017-07-29] MEDS ORDERED: DOXY100C37 (15:17)
[2017-07-29] MEDS ORDERED: VITA1CAP40 (15:17)
[2017-07-29] MEDS ORDERED: ALBU83IN INH (15:17)
[2017-07-29] MEDS ORDERED: ATOR1TAB21 PO (15:17)
[2017-07-29] MEDS ORDERED: KLON0.5T (15:17)
[2017-07-29] MEDS: IPRATROPIUM 0.5MG/ALBUTEROL 2.5MG INH SOL UD 3ML (DUONEB)(J7620) NEB SCH ×2 (18:10→18:23)
[2017-07-29 18:39] LABS: BASO # 0.1 10^3/uL (0.0-0.2); BASO % 0.2 % (0.0-1.0); IMMATURE GRANULOCYTE % 0.5 % (0-0); LYMPH # 1.8 10^3/uL (1.5-4.5); MEAN CORPUSCULAR HEMOGLOBIN 32.5 pg (27.0-33.0); MEAN CORPUSCULAR HGB CONC 33.6 g/dl (32.0-36.5); MEAN CORPUSCULAR VOLUME 96.9 fl (80.0-96.0); MONO # 1.4 10^3/uL (0.0-0.8); MONO % 5.6 % (0.0-5.0); NEUTROPHILS % 86.7 % (36.0-66.0); PLATELET COUNT, AUTOMATED 332 10^3/uL (150-450); RED CELL DISTRIBUTION WIDTH 13.6 % (11.5-14.5); WHITE BLOOD COUNT 25.6 10^3/uL (4.0-10.0)
[2017-07-29 18:41] LABS: NEUTROPHILS # 22.2 10^3/uL (1.8-7.7)
--- NOTE | 2017-07-29 19:01 | REP ---
Right hip two views : There is no fracture or dislocation. Mineralization and joint spaces are normal. There are no calcifications or foreign bodies. Impression: Negative right hip AP pelvis: There is no pelvic fracture. Sacroiliac articulations and hip articulations are unremarkable. Surgical clips in the abdominal right upper quadrant. Impression: No pelvic fracture. . Signed by Mk Pierce MD 07/29/2017 06:53 P
[2017-07-29 19:02] LABS: ANION GAP 11 MEQ/L (8-16); BLOOD UREA NITROGEN 3 MG/DL (7-18); CALCIUM LEVEL 9.5 MG/DL (8.5-10.1); CARBON DIOXIDE LEVEL 24 MEQ/L (21-32); CHLORIDE LEVEL 105 MEQ/L (98-107); CREATININE FOR GFR 0.52 MG/DL (0.55-1.02); GLOMERULAR FILTRATION RATE > 60.0 (>51); GLUCOSE, FASTING 106 MG/DL (70-105); SODIUM LEVEL 140 MEQ/L (136-145)
--- NOTE | 2017-07-29 19:02 | REP ---
PA and lateral chest: Comparison is 07/14/2017. There are bibasilar densities as an interval change compatible with bibasilar infiltrates. Upper lung zones are clear. Cardiac size normal. The timmy, mediastinum, and bony thorax are unremarkable. Signed by Mk Pierce MD 07/29/2017 06:54 P
[2017-07-29] MEDS ORDERED: ACETAMINOPHEN TAB 650MG DOSE (2X325MG) PO ONE (19:15)
[2017-07-29] MEDS ORDERED: NS 1,000 ML IV ONE (19:15)
[2017-07-29] MEDS ORDERED: AZITHROMYCIN INJ 500 MG, VIAL MATE ADAPTER 1 EACH in D5W 250 ML IV ONE (19:15)
[2017-07-29] MEDS ORDERED: cefTRIAXone SOD 1 GM in D5W MINI-BAG PLUS 50 ML IV ONE (19:15)
[2017-07-29] MEDS ORDERED: MORPHINE 4 MG/ML 1ML SYRINGE IV ONE (19:45)
[2017-07-29] MEDS ORDERED: TEMAZEPAM 15 MG CAP PO PRN (20:15)
[2017-07-29] MEDS ORDERED: HYOSCYAMINE SULFATE 0.125 MG SUBL TABLET SL PRN (20:15)
[2017-07-29] MEDS ORDERED: CETIRIZINE (ZyrTEC) 10 MG TAB PO PRN (20:15)
[2017-07-29] MEDS ORDERED: ACETAMINOPHEN TAB 650MG DOSE (2X325MG) PO PRN (20:15)
[2017-07-29] MEDS: NS 1,000 ML IV SCH (20:15)
[2017-07-29] MEDS ORDERED: NICOTINE POLACRILEX 2 MG GUM PO PRN (20:15)
[2017-07-29] MEDS ORDERED: ONDANSETRON 4MG/2ML VIAL (J2405) IV PRN (20:15)
[2017-07-29] MEDS ORDERED: IPRATROPIUM 0.5MG/ALBUTEROL 2.5MG INH SOL UD 3ML (DUONEB)(J7620) NEB PRN (20:15)
--- NOTE | 2017-07-29 20:51 | HPE ---
DATE OF ADMISSION: 07/29/2017 PRIMARY CARE PROVIDER: Bibiana Hou PA-C NEUROLOGIST: Ariel Rivers MD CHIEF COMPLAINT: Fevers, coughing. HISTORY OF PRESENT ILLNESS: This is a 52-year-old female patient with underlying medical history of chronic obstructive pulmonary disease (COPD), active smoker, Clostridium (C) difficile a year ago, history of alcoholism, bipolar disorder, anxiety/depression, posttraumatic stress disorder, agoraphobia, seizure from alcohol withdrawal, has not been drinking for the past 6 months, has been actively being worked up by neurology with left-sided weakness, with occupational and physical therapy, worked up with Dr. Rivers, currently has EEG and MRI with and without contrast of the brain and spine scheduled for Friday next week, presented to the hospital with 3 days of fevers and cough, reported home temperature of 102 with coughing productive of yellow phlegm, generalized weakness. Furthermore, patient also fell today, hitting her left hip, still able to ambulate, baseline ambulation with a cane. Does not use oxygen at home. Denies any sick contact, nausea, vomiting, diarrhea. Denies any chest pain, abdominal pain. No recent travel. Was recently treated as outpatient with doxycycline and prednisone with little improvement. ALLERGIES: FLAGYL, NAPROXEN, and SULFA DRUGS. PAST MEDICAL HISTORY: 1. COPD. 2. Smoker. 3. C. difficile. 4. Hypokalemia. 5. History of alcoholism with withdrawal seizure. 6. History of bipolar disorder. 7. Depression/anxiety. 8. Agoraphobia. 9. Posttraumatic stress disorder. 10. Migraine headache. 11. Actively being worked up for left-sided weakness. PAST SURGICAL HISTORY: Cholecystectomy. SOCIAL HISTORY: Patient smokes one pack of cigarettes per day for the past 35 years, still actively smoking, refused nicotine patch, is receptive to try the gum if she feels the urge to. Denies any drinking history, has not drank for the past 6 months, used to be a heavy drinker with alcohol withdrawal and withdrawal seizure. FAMILY HISTORY: Mother with breast cancer. Father has hypertension and myocardial infarction ([place]) at age 62. REVIEW OF SYSTEMS: Ten point review of systems are negative except for left-sided hip pain, left-sided weakness, coughing, fevers, generalized weakness. All other review of systems are negative. HOME MEDICATIONS: - acetaminophen 650 mg by mouth every 4 hours as needed - Ventolin inhalers two puffs every 4 hours as needed - albuterol nebulizers every 4 hours as needed - Lipitor 20 mg by mouth nightly - Zyrtec 10 mg by mouth daily as needed - clonazepam 0.5 mg by mouth three times a day as needed - Breo inhalation daily as needed - hyoscyamine 0.125 mg sublingual every 6 hours as needed for cramps - lamotrigine 150 mg by mouth twice a day - lisinopril 20 mg by mouth daily - multivitamin one tablet by mouth daily - Protonix 40 mg by mouth daily - Paxil 30 mg by mouth daily - probiotics one tablet by mouth daily - Seroquel 300 mg by mouth nightly - Restoril 15 mg by mouth every 2 days as needed for sleep - vitamin D 50,000 units by mouth weekly on Friday VITAL SIGNS: Temperature 99.4, pulse 115, respirations 17, blood pressure 137/94, pulse oximetry 97% on room air. GENERAL: Patient obese, alert and oriented times three, in no acute distress. HEENT: Normocephalic, atraumatic. PULMONARY: Bilateral rhonchi and expiratory wheeze. CARDIAC: Mild tachycardia, regular S1, S2. ABDOMEN: Soft, nontender. Positive bowel sounds. EXTREMITIES: No clubbing, cyanosis, or edema. NEUROLOGIC: No focal deficit. LABORATORY DATA: WBC 25.6, hemoglobin and hematocrit 13.6/40.5, platelets 332. Chemistry: Sodium 140, potassium 4, chloride 105, bicarbonate 24, BUN 3, creatinine 0.5, lactic acid 3.5. X-ray of the hip and pelvis negative for fractures. X-ray of the chest shows bibasilar infiltrates. ASSESSMENT AND PLAN: This is a 52-year-old female patient with underlying medical history of Clostridium (C) difficile colitis, chronic obstructive pulmonary disease (COPD), alcoholism with withdrawal seizure, has not drank for the past 6 months, bipolar disorder, depression, agoraphobia, actively being worked up for multiple sclerosis by neurologist, Dr. Rivers, presented with fevers and cough for community-acquired bacterial pneumonia. 1. Acute chronic obstructive pulmonary disease (COPD) exacerbation with community-acquired bacterial pneumonia. Sputum culture, blood culture. Followup C-reactive protein. X-rays appreciated. Respiratory panel. Nebulizer treatments, Solu-Medrol, Advair, Rocephin and azithromycin. Followup for improvement. 2. History of Clostridium (C) difficile. Deescalate antibiotics as soon as patient improves. Will give probiotics. 3. History of alcoholism. Patient claimed that she has not drank any alcoholic beverages for 6 months. Will monitor the patient for withdrawal. 4. Fall. Likely secondary to underlying infection given patient has fevers. Will check orthostatics. X-ray of the hip appreciated. Physical therapy. 5. Left-sided weakness. Patient is actively being followed by Dr. Rivers for workup for multiple sclerosis. EEG and MRI with and without contrast of the head and spine has been scheduled on Friday next week. If patient stays in the hospital for a prolonged period of time, will do the workup inpatient versus if patient improves over the next 2-3 days, will discharge patient for workup as outpatient with Dr. Rivers. 6. Underlying history of posttraumatic stress disorder, depression, and anxiety. Continue home medications. 7. Seasonal allergies. Continue home medication. 8. Dyslipidemia. Continue home medication. 9. Smoking. Counseling provided. Nicotine gum as needed. 10. Hypertension. Continue current medication. 11. Lactic acidosis. IV hydration. Likely secondary to respiratory distress. Will repeat lactic acid. IV fluids have been ordered. 12. Leukocytosis. Possibly a component of steroid use. Patient was treated with prednisone as outpatient. Will followup cultures. Solu-Medrol, antibiotics as mentioned above. 13. Deep venous thrombosis (DVT) prophylaxis. Lovenox subcutaneous. DISPOSITION PLANNING: Pending clinical improvement. Smoking cessation counseling provided, time spent 5 minutes.
[2017-07-29] MEDS: ADVAIR HFA 230/21MCG INHALER INH SCH (21:00)
[2017-07-29 21:45] VITALS: BP 132/63
[2017-07-29] MEDS: ATORVASTATIN 20 MG TAB PO SCH (22:12)
[2017-07-29] MEDS: methylPREDNISolone INJ 125 MG/2 ML VIAL (J2930) IV SCH (22:12)
[2017-07-29] MEDS: lamoTRIgine 100MG TAB PO SCH (22:13)
[2017-07-29] MEDS: clonazePAM 0.5 MG TAB PO PRN (22:32)
[2017-07-29] MEDS: PERCOCET 5MG/325MG TAB PO PRN (22:32)
[2017-07-29] MEDS: QUEtiapine FUMARATE 100 MG TAB PO SCH (22:32)
[2017-07-30 01:42] VITALS: BP_SYST 110; BP_SYST 114; BP_SYST 115; BP_DIAS 64; BP_DIAS 69; BP_DIAS 74
[2017-07-30] MEDS: IPRATROPIUM 0.5MG/ALBUTEROL 2.5MG INH SOL UD 3ML (DUONEB)(J7620) NEB SCH ×4 (02:00→20:00)
[2017-07-30] MEDS: methylPREDNISolone INJ 125 MG/2 ML VIAL (J2930) IV SCH ×3 (05:05→21:46)
[2017-07-30] MEDS: NS 1,000 ML IV SCH (05:05)
[2017-07-30 05:24] LABS: MEAN CORPUSCULAR HEMOGLOBIN 32.1 pg (27.0-33.0); MEAN CORPUSCULAR HGB CONC 32.7 g/dl (32.0-36.5); MEAN CORPUSCULAR VOLUME 98.3 fl (80.0-96.0); WHITE BLOOD COUNT 17.5 10^3/uL (4.0-10.0)
[2017-07-30 05:47] LABS: ANION GAP 7 MEQ/L (8-16); BLOOD UREA NITROGEN 3 MG/DL (7-18); CALCIUM LEVEL 8.2 MG/DL (8.5-10.1); CARBON DIOXIDE LEVEL 26 MEQ/L (21-32); CHLORIDE LEVEL 108 MEQ/L (98-107); GLOMERULAR FILTRATION RATE > 60.0 (>51); GLUCOSE, FASTING 170 MG/DL (70-105); MAGNESIUM LEVEL 1.9 MG/DL (1.8-2.4); POTASSIUM SERUM 4.3 MEQ/L (3.5-5.1); SODIUM LEVEL 141 MEQ/L (136-145)
[2017-07-30 06:00] VITALS: BP 114/54
[2017-07-30] MEDS: ADVAIR HFA 230/21MCG INHALER INH SCH ×2 (07:45→21:00)
[2017-07-30 08:00] VITALS: BP 113/56
[2017-07-30] MEDS: ENOXAPARIN 40 MG/0.4 ML SYRINGE (J1650) SC SCH (08:22)
[2017-07-30] MEDS: LACTOBACILLUS ACIDOPHILUS CAP (BACID) PO SCH ×3 (08:22→17:21)
[2017-07-30] MEDS: MULTIVITAMINS/MINERALS THERAP 1 TAB PO SCH (08:22)
[2017-07-30] MEDS: clonazePAM 0.5 MG TAB PO PRN ×3 (08:22→21:46)
[2017-07-30] MEDS: PANTOPRAZOLE 40MG TAB (PROTONIX) PO SCH (08:22)
[2017-07-30] MEDS: LISINOPRIL 20 MG TAB PO SCH (08:22)
[2017-07-30] MEDS: PERCOCET 5MG/325MG TAB PO PRN ×4 (08:23→21:46)
[2017-07-30] MEDS: lamoTRIgine 100MG TAB PO SCH ×2 (08:23→20:26)
[2017-07-30 10:00] VITALS: BP_SYST 112; BP_SYST 113; BP_SYST 116; BP_DIAS 70; BP_DIAS 72; BP_DIAS 74
[2017-07-30] MEDS: PARoxetine 10MG TABLET PO SCH (11:45)
[2017-07-30 14:00] VITALS: BP 108/59
--- NOTE | 2017-07-30 19:32 | IPN ---
DATE: 07/30/2017 Ms. Melgar is feeling better. She is still somewhat short of breath. She is coughing, not producing sputum. No chest pain. She is tolerating a diet. Has had two large cups of coffee so far today. Temperature 98, pulse 92, respiratory rate 18, blood pressure 113/56, 93% on room air. She is not currently orthostatic. Input and output notable for a positive fluid balance of 290. No bowel movements. Awake, appropriately interactive, pleasantly conversant. Breathing is symmetrical. Diffuse polyphonic wheeze throughout. No accessory muscle use. Speaking in completely sentences. Heart has regular rate and rhythm. Not tachycardic. Abdomen is soft, doughy, nontender. No significant lower extremity edema. White count is 17.5, hemoglobin 11.3, platelets 278. BUN is 3, creatinine 0.5, C-reactive protein is 5.98, lactic acid has normalized overnight. Respiratory panel was negative. Sputum is pending. ASSESSMENT: This is a 52-year-old with community-acquired pneumonia. PLAN: 1. The patient has community-acquired pneumonia. Continue with appropriate broad spectrum antibiotics. Also has an element of wheeze, most likely related to underlying chronic obstructive pulmonary disease (COPD) related to that pneumonia. Continue steroids and aggressive pulmonary toilet. 2. The patient has a history of Clostridium (C) difficile. Given probiotics. 3. The patient has a history of alcoholism. Has not used alcohol in the last 6 months. We will monitor for signs or symptoms of withdrawal. The patient does have benzodiazepine available to her. 4. The patient had a fall and has ongoing right sided hip pain. No evidence of fracture. 5. The patient has suspected multiple sclerosis. Undergoing workup as an outpatient, which can be continued as an outpatient. 6. The patient has posttraumatic stress disorder (PTSD), depression and anxiety. 7. The patient has seasonal allergies. 8. The patient is smoking. I spent greater than 10 minutes discussing smoking cessation counseling at length with the patient and the patient would like to use nicotine gum during her stay. 9. The patient has appropriate deep vein thrombosis (DVT) prophylaxis.
[2017-07-30 20:00] VITALS: BP 129/73
[2017-07-30] MEDS ORDERED: AZITHROMYCIN INJ 500 MG, VIAL MATE ADAPTER 1 EACH in D5W 250 ML IV SCH (20:00)
[2017-07-30] MEDS: QUEtiapine FUMARATE 100 MG TAB PO SCH (20:27)
[2017-07-30] MEDS: ATORVASTATIN 20 MG TAB PO SCH (20:27)
[2017-07-30] MEDS ORDERED: cefTRIAXone SOD 2 GM in D5W MINI-BAG PLUS 50 ML IV SCH (21:00)
--- NOTE | 2017-07-30 22:02 | ECGEPIP ---
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
[2017-07-31] MEDS: IPRATROPIUM 0.5MG/ALBUTEROL 2.5MG INH SOL UD 3ML (DUONEB)(J7620) NEB SCH ×4 (01:38→19:44)
[2017-07-31] MEDS: methylPREDNISolone INJ 125 MG/2 ML VIAL (J2930) IV SCH (05:17)
[2017-07-31 05:51] LABS: MEAN CORPUSCULAR HEMOGLOBIN 31.8 pg (27.0-33.0); MEAN CORPUSCULAR HGB CONC 32.3 g/dl (32.0-36.5); MEAN CORPUSCULAR VOLUME 98.2 fl (80.0-96.0); RED CELL DISTRIBUTION WIDTH 14.2 % (11.5-14.5); WHITE BLOOD COUNT 18.9 10^3/uL (4.0-10.0)
[2017-07-31 06:18] LABS: ANION GAP 8 MEQ/L (8-16); BLOOD UREA NITROGEN 9 MG/DL (7-18); CALCIUM LEVEL 8.4 MG/DL (8.5-10.1); CARBON DIOXIDE LEVEL 28 MEQ/L (21-32); CHLORIDE LEVEL 106 MEQ/L (98-107); CREATININE FOR GFR 0.54 MG/DL (0.55-1.02); GLOMERULAR FILTRATION RATE > 60.0 (>51); GLUCOSE, FASTING 160 MG/DL (70-105); MAGNESIUM LEVEL 2.2 MG/DL (1.8-2.4); POTASSIUM SERUM 3.6 MEQ/L (3.5-5.1); SODIUM LEVEL 142 MEQ/L (136-145)
[2017-07-31] MEDS: ADVAIR HFA 230/21MCG INHALER INH SCH ×2 (07:14→21:00)
[2017-07-31 08:00] VITALS: BP 119/69
[2017-07-31] MEDS: CEFDINIR 300 MG CAP (OMNICEF) PO SCH ×2 (09:00→20:40)
[2017-07-31] MEDS ORDERED: INFLUENZA QUADRIVALENT PF VACCINE 0.5ML SYRINGE (90686) IM ONE (09:00)
[2017-07-31] MEDS: ENOXAPARIN 40 MG/0.4 ML SYRINGE (J1650) SC SCH (09:02)
[2017-07-31] MEDS: LACTOBACILLUS ACIDOPHILUS CAP (BACID) PO SCH ×3 (09:03→17:32)
[2017-07-31] MEDS: PARoxetine 10MG TABLET PO SCH (09:03)
[2017-07-31] MEDS: lamoTRIgine 100MG TAB PO SCH ×2 (09:03→20:42)
[2017-07-31] MEDS: MULTIVITAMINS/MINERALS THERAP 1 TAB PO SCH (09:03)
[2017-07-31] MEDS: PANTOPRAZOLE 40MG TAB (PROTONIX) PO SCH (09:03)
[2017-07-31] MEDS: LISINOPRIL 20 MG TAB PO SCH (09:04)
[2017-07-31] MEDS: PERCOCET 5MG/325MG TAB PO PRN ×2 (09:18→19:04)
[2017-07-31] MEDS: clonazePAM 0.5 MG TAB PO PRN ×2 (09:18→20:45)
[2017-07-31] MEDS: guaiFENesin ER 600 MG TAB PO SCH ×2 (10:17→20:40)
--- NOTE | 2017-07-31 11:41 | IPN ---
DATE OF SERVICE: 07/31/2017 Ms. Nascimento is feeling a little better this morning. She is breathing more easily. She is having some difficulty bring up sputum. Would like some Mucinex which she has used at home before with good effect. Had a large cup of [employer] coffee this morning which makes her happy. Temperature is 98.4, pulse 94, respiratory rate 18, blood pressure 119/69, 96% on room air. Input and output notable for positive fluid balance of 165. No bowel movements noted. She is awake, appropriately interactive, pleasantly conversant. Breathing is symmetrical. I:E ratio is 1:4. There is no wheeze noted on exam. Heart is distant sounding, regular rate and rhythm. Normal S1, S2. Radial pulse 2+ Capillary refill is less than 2 seconds. Abdomen: Soft, doughy, nontender. There is no lower extremity edema. White cell count 18.9, hemoglobin 10.8, platelets 288. BUN is 8, creatinine 0.5. ASSESSMENT: This is a 52-year-old with community acquired pneumonia. PLAN: 1. Patient has community acquired pneumonia. Continuing with appropriate broad spectrum antibiotics. Will switch azithromycin to oral. Wheeze is resolving. Continue with steroids. Aggressive pulmonary toilet. Will add acapella device and Mucinex. 2. Patient has history of Clostridium difficile. Is on Probiotics. 3. Patient has history of alcoholism. No signs or symptoms of withdrawal currently. She denies use of alcohol in the last 6 months. 4. Patient has suspected multiple sclerosis. Outpatient workup is scheduled to continue next week. 5. Patient has posttraumatic stress disorder, depression and anxiety. 6. Patient has seasonal allergy. 7. Patient has history of smoking. We did not discuss smoking cessation today but did discuss it at length yesterday. 8. Patient has appropriate deep venous thrombosis (DVT) prophylaxis.
[2017-07-31] MEDS: AZITHROMYCIN 250 MG TAB PO SCH (12:04)
[2017-07-31] MEDS ORDERED: CALCIUM CARBONATE 500 MG CHEW U/D PO PRN (12:30)
[2017-07-31 15:45] VITALS: BP 142/71
[2017-07-31] MEDS: QUEtiapine FUMARATE 100 MG TAB PO SCH (20:40)
[2017-07-31] MEDS: ATORVASTATIN 20 MG TAB PO SCH (20:42)
[2017-07-31] MEDS: predniSONE 20 MG TAB PO SCH (20:42)
[2017-07-31 22:00] VITALS: BP 122/69
[2017-08-01] MEDS: IPRATROPIUM 0.5MG/ALBUTEROL 2.5MG INH SOL UD 3ML (DUONEB)(J7620) NEB SCH ×2 (02:00→07:42)
[2017-08-01 06:00] VITALS: BP 139/90
[2017-08-01 07:15] LABS: MEAN CORPUSCULAR HEMOGLOBIN 31.6 pg (27.0-33.0); MEAN CORPUSCULAR VOLUME 98.9 fl (80.0-96.0); RED CELL DISTRIBUTION WIDTH 14.1 % (11.5-14.5); WHITE BLOOD COUNT 10.9 10^3/uL (4.0-10.0)
[2017-08-01 07:34] LABS: ANION GAP 7 MEQ/L (8-16); BLOOD UREA NITROGEN 8 MG/DL (7-18); CALCIUM LEVEL 8.4 MG/DL (8.5-10.1); CARBON DIOXIDE LEVEL 26 MEQ/L (21-32); CHLORIDE LEVEL 107 MEQ/L (98-107); CREATININE FOR GFR 0.49 MG/DL (0.55-1.02); GLOMERULAR FILTRATION RATE > 60.0 (>51); GLUCOSE, FASTING 148 MG/DL (70-105); POTASSIUM SERUM 4.4 MEQ/L (3.5-5.1); SODIUM LEVEL 140 MEQ/L (136-145)
[2017-08-01] MEDS: ADVAIR HFA 230/21MCG INHALER INH SCH (07:42)
[2017-08-01] MEDS ORDERED: CEFD1CAP8 PO (08:09)
[2017-08-01] MEDS ORDERED: NICO2GUM62 PO (08:09)
[2017-08-01] MEDS ORDERED: PRED10TA2 PO (08:09)
[2017-08-01] MEDS ORDERED: AZIT500T2 PO (08:09)
--- NOTE | 2017-08-01 09:21 | DSES ---
DATE OF ADMISSION: 07/29/2017 DATE OF DISCHARGE: SPECIALISTS INVOLVED IN CARE: None. COMPLICATIONS DURING STAY: None. PROCEDURES PERFORMED DURING STAY: None. DISCHARGE DIAGNOSES: 1. Community-acquired pneumonia. 2. Tobacco use. 3. History of Clostridium (C.) difficile. 4. Hypokalemia. 5. History of alcoholism with withdrawal seizures, not currently using alcohol. 6. History of bipolar. 7. Depression and anxiety. 8. Agoraphobia. 9. History of chronic obstructive pulmonary disease (COPD). 10. Posttraumatic stress disorder (PTSD). 11. Migraine headache. 12. Possible multiple sclerosis. SUMMARY OF PRESENTATION: This is a 52-year-old smoker who presents with three days of fever, cough, yellow sputum, was found to have community-acquired pneumonia and was admitted to the hospitalist service, treated with empiric antibiotics, steroids, aggressive pulmonary toilet and improved rapidly. She is determined to be ready to go home today. Temperature 96.9, pulse 66, respiratory rate 16, blood pressure 139/90, 95% on room air. Awake, appropriate, pleasantly conversant. Breathing is symmetrical and rested. Occasional polyphonic wheeze. Aeration is good. I:E ratio is 1:3. No accessory muscle use. Speaking in complete sentences. Heart has regular rate and rhythm. White cell count is 10.9, creatinine 0.49, sputum only grew yeast. Respiratory panel is negative. Blood cultures have been negative. DISCHARGE INSTRUCTIONS: Include the followin. Followup with Virginia Hou within 1 week. 2. Diet and activity as tolerated. 3. Discontinue smoking. - azithromycin 500 mg by mouth daily for three doses - cefdinir 300 mg by mouth twice a day for 10 doses - NicoDerm 2 mg gum, 4 mg every 2 hours as needed for withdrawal - prednisone tapering dose as written, starting at 40 mg twice a day - Bacid one tablet twice a day - Tylenol 650 mg every 4 hours as needed for pain - albuterol two puffs every 4 hours as needed for shortness of breath - atorvastatin 20 mg by mouth daily at bedtime - cetirizine 10 mg by mouth daily as needed for allergies - clonazepam 0.5 mg three times a day as needed for anxiety - continue Breo Ellipta one puff inhaled daily. I encouraged her to take it on a regular basis. - hyoscyamine 0.125 mg every 6 hours as needed for abdominal cramps - lamotrigine 150 mg by mouth twice a day - Lisinopril 20 mg by mouth daily - multivitamin one tablet daily - Protonix 40 mg by mouth daily - Paxil 30 mg by mouth daily - probiotic one tablet by mouth daily - as previously stated, Seroquel 300 mg by mouth daily at bedtime - temazepam 50 mg by mouth every 2 days as needed for sleep - vitamin D supplement 50,000 units weekly
[2017-08-01 09:23] VITALS: BP 139/90
[2017-08-01] MEDS: LACTOBACILLUS ACIDOPHILUS CAP (BACID) PO SCH (09:23)
[2017-08-01] MEDS: LISINOPRIL 20 MG TAB PO SCH (09:23)
[2017-08-01] MEDS: lamoTRIgine 100MG TAB PO SCH (09:23)
[2017-08-01] MEDS: MULTIVITAMINS/MINERALS THERAP 1 TAB PO SCH (09:24)
[2017-08-01] MEDS: PARoxetine 10MG TABLET PO SCH (09:24)
[2017-08-01] MEDS: AZITHROMYCIN 250 MG TAB PO SCH (09:24)
[2017-08-01] MEDS: guaiFENesin ER 600 MG TAB PO SCH (09:24)
[2017-08-01] MEDS: predniSONE 20 MG TAB PO SCH (09:24)
[2017-08-01] MEDS: PANTOPRAZOLE 40MG TAB (PROTONIX) PO SCH (09:25)
[2017-08-01] MEDS: PERCOCET 5MG/325MG TAB PO PRN (09:25)
[2017-08-01] MEDS: CEFDINIR 300 MG CAP (OMNICEF) PO SCH (09:25)
[2017-08-01] MEDS: ENOXAPARIN 40 MG/0.4 ML SYRINGE (J1650) SC SCH (09:25)
[2017-08-01] MEDS ORDERED: PERCOCET PO (10:32)
[2017-08-02] MEDS ORDERED: AZIT500T2 PO (21:45)
[2017-08-02] MEDS ORDERED: OXYC1TAB23 PO (21:45)
[2017-08-02] MEDS ORDERED: CEFD1CAP8 PO (21:45)
[2017-08-02] MEDS ORDERED: PRED10TA2 PO (21:48)
[2017-08-30] MEDS ORDERED: NORT25CA2 PO (10:45)
[2017-08-30] MEDS ORDERED: NORC1TAB4 PO (10:47)
== END 2017-08-01 11:30 | disposition home or self-care (01) | DRG 140 ==
LOC: M ED 14:55 → M ED INP 20:10 → M PCU 21:37 → M MS5PR 07-31 15:45
PROVIDERS: ADMIT Hospitalist; ATTEND Internal Medicine
DX: J44.1 Chronic obstructive pulmonary disease with (acute) exacerbation (principal); J18.9 Pneumonia, unspecified organism; E87.2 Acidosis; G35 Multiple sclerosis; E87.6 Hypokalemia; F17.210 Nicotine dependence, cigarettes, uncomplicated; F10.21 Alcohol dependence, in remission; G43.909 Migraine, unspecified, not intractable, without status migrainosus; F43.10 Post-traumatic stress disorder, unspecified; F31.9 Bipolar disorder, unspecified; F40.00 Agoraphobia, unspecified; Z79.899 Other long term (current) drug therapy; Z86.19 Personal history of other infectious and parasitic diseases; E78.5 Hyperlipidemia, unspecified; J44.0 Chronic obstructive pulmonary disease with (acute) lower respiratory infection

== ENCOUNTER 2017-08-02 19:46 | Observation (INO) | payer OTHER ==
[~2017-08-02] VITALS: Ht 152.4 cm; Wt 84.9 kg
[~2017-08-02 19:46] MED LIST changes: +ALBU83IN INH; +AZIT500T2 PO; +CEFD1CAP8 PO; +DOXY100C37; +KLON0.5T; +NICO2GUM62 PO; +PERCOCET PO; +PRED10TA2 PO; +TEMA15CA2 PO; +VITA1CAP40
[2017-08-02] MEDS ORDERED: methylPREDNISolone INJ 125 MG/2 ML VIAL (J2930) IV ONE (20:45)
[2017-08-02] MEDS ORDERED: IPRATROPIUM 0.5MG/ALBUTEROL 2.5MG INH SOL UD 3ML (DUONEB)(J7620) NEB ONE (20:45)
[2017-08-02 20:56] LABS: BASO % 0.1 % (0.0-1.0); EOS % 0.1 % (0.0-3.0); LYMPH # 1.6 10^3/uL (1.5-4.5); LYMPH % 15.3 % (24.0-44.0); MEAN CORPUSCULAR HGB CONC 33.1 g/dl (32.0-36.5); MEAN CORPUSCULAR VOLUME 96.6 fl (80.0-96.0); MONO # 0.8 10^3/uL (0.0-0.8); MONO % 7.9 % (0.0-5.0); NEUTROPHILS # 7.9 10^3/uL (1.8-7.7); NEUTROPHILS % 74.6 % (36.0-66.0); PLATELET COUNT, AUTOMATED 335 10^3/uL (150-450); RED CELL DISTRIBUTION WIDTH 13.7 % (11.5-14.5); WHITE BLOOD COUNT 10.6 10^3/uL (4.0-10.0)
[2017-08-02 20:57] LABS: ADD MORPHOLOGY? NO
[2017-08-02 21:27] LABS: ALBUMIN 2.8 GM/DL (3.2-5.2); ALBUMIN/GLOBULIN RATIO 0.78 (1.00-1.93); ALKALINE PHOSPHATASE 70 U/L (45-117); ALT/SGPT 16 U/L (12-78); ANION GAP 6 MEQ/L (8-16); AST/SGOT 6 U/L (15-37); BILIRUBIN,DIRECT < 0.1 MG/DL (0.0-0.2); BILIRUBIN,TOTAL 0.2 MG/DL (0.2-1.0); BLOOD UREA NITROGEN 7 MG/DL (7-18); CALCIUM LEVEL 8.7 MG/DL (8.5-10.1); CARBON DIOXIDE LEVEL 29 MEQ/L (21-32); CHLORIDE LEVEL 103 MEQ/L (98-107); CREATININE FOR GFR 0.43 MG/DL (0.55-1.02); GLOMERULAR FILTRATION RATE > 60.0 (>51); GLUCOSE, FASTING 143 MG/DL (70-105); POTASSIUM SERUM 4.4 MEQ/L (3.5-5.1); SODIUM LEVEL 138 MEQ/L (136-145); TOTAL PROTEIN 6.4 GM/DL (6.4-8.2)
[2017-08-02] MEDS ORDERED: CEFD1CAP8 PO (21:45)
[2017-08-02] MEDS ORDERED: OXYC1TAB23 PO (21:45)
[2017-08-02] MEDS ORDERED: AZIT500T2 PO (21:45)
[2017-08-02] MEDS ORDERED: PRED10TA2 PO (21:48)
--- NOTE | 2017-08-02 21:54 | ECGEPIP ---
Stationary ECG Study [facility] - ED Test Date: 2017-08-02 Pat Name: ANDRES JAMA Department: Room: - Gender: F Fund Manager: VidalB: 1965 Requested By: YEHUDA Andrew Order Number: [id number] Reading MD: Kwesi Dyson Measurements Intervals [place] Rate: 73 P: -19 MO: 120 QRS: 18 QRSD: 90 T: 24 QT: 367 QTc: 405 Interpretive Statements SINUS RHYTHM Electronically Signed On 08-02-2017 21:53:37 EDT by Kwesi Dyson
[2017-08-02] MEDS ORDERED: ISOVUE-370 76% 100ML VIAL (Q9967) As Ordered ONE (21:59)
[2017-08-02 22:00] VITALS: BP 174/94
[2017-08-02] MEDS ORDERED: IPRATROPIUM 0.5MG/ALBUTEROL 2.5MG INH SOL UD 3ML (DUONEB)(J7620) NEB PRN (22:00)
[2017-08-02] MEDS ORDERED: SODIUM CHLORIDE HYPERTONIC 3% 15ML NEB SOL NEB ONE (22:00)
[2017-08-02] MEDS ORDERED: TEMAZEPAM 15 MG CAP PO PRN (22:00)
[2017-08-02] MEDS ORDERED: NICOTINE POLACRILEX 2 MG GUM PO PRN (22:00)
[2017-08-02] MEDS ORDERED: HYOSCYAMINE SULFATE 0.125 MG SUBL TABLET SL PRN (22:00)
[2017-08-02] MEDS ORDERED: CETIRIZINE (ZyrTEC) 10 MG TAB PO PRN (22:00)
[2017-08-02] MEDS ORDERED: ACETAMINOPHEN 325 MG TAB PO PRN (22:00)
[2017-08-02] MEDS ORDERED: ONDANSETRON 4MG/2ML VIAL (J2405) IV PRN (22:15)
[2017-08-02] MEDS: PERCOCET 5MG/325MG TAB PO PRN (22:21)
--- NOTE | 2017-08-02 23:30 | REPUSA ---
CT angiogram of the chest Clinical statement: pneumonia. Technique: Multiple axial CT images were obtained from the thoracic inlet through the upper abdomen a fter a bolus administration of nonionic intravenous contrast. Coronal and sagittal reconstructions we re also obtained. Comparison: 12/05/2016. Findings: The central pulmonary arteries and thoracic aorta are unremarkable. Thyroid gland is within normal limits. There is no thoracic lymphadenopathy. There are no pericardial or pleural effusions. There are moderate scattered ground glass infiltrates throughout the lungs, with upper lobe predomina nce. No pulmonary nodules are appreciated. Limited imaging of the upper abdomen is unremarkable. Ther e are no suspicious osseous lesions. Impression: 1. New scattered ground glass infiltrates bilaterally, with upper lobe predominance. Differential genny gnosis includes infectious process such as atypical pneumonia versus and inflammatory pulmonary disea se such as ARDS. Follow-up is recommended as clinically indicated.
[2017-08-03] MEDS ORDERED: AZITHROMYCIN INJ 500 MG, VIAL MATE ADAPTER 1 EACH in D5W 250 ML IV SCH ×3
[2017-08-03] MEDS: ATORVASTATIN 20 MG TAB PO SCH ×2 (00:46→21:41)
[2017-08-03] MEDS: SENOKOT S TAB PO SCH ×3 (00:47→21:40)
[2017-08-03] MEDS: lamoTRIgine 100MG TAB PO SCH ×3 (00:47→21:41)
[2017-08-03] MEDS: clonazePAM 0.5 MG TAB PO PRN ×2 (00:48→21:41)
[2017-08-03] MEDS: QUEtiapine FUMARATE 100 MG TAB PO SCH ×2 (00:48→21:40)
[2017-08-03] MEDS ORDERED: cefTRIAXone SOD 2 GM in D5W 50 ML IV SCH (01:00)
--- NOTE | 2017-08-03 01:25 | HPE ---
DATE OF ADMISSION: 08/02/2017 PRIMARY CARE PROVIDER: MARCEL Styles. NEUROLOGIST: Dr. Rivers. CHIEF COMPLAINT: Nausea, vomiting, shortness of breath, and subjective fever. HISTORY OF PRESENT ILLNESS: This is a 52-year-old female patient with underlying medical history of chronic obstructive pulmonary disease (COPD), active smoker, Clostridium (C) difficile a year ago, history of alcoholism, bipolar disorder, depression, anxiety, posttraumatic stress disorder, agoraphobia, seizure from alcohol withdrawal, has not been drinking for the past 6 months, and is undergoing workup with neurology with left-sided weakness and also physical therapy (PT), occupational therapy (OT), sees Dr. Rivers, has an electroencephalogram (EEG), MRI with and without contrast of the brain and spine scheduled for Friday next week. Initially presented to the hospital 07/29/2017, was discharged yesterday. Initially admitted with pneumonia with fevers, cough productive of yellow phlegm for the past 1 week or so and generalized weakness. Patient was discharged yesterday after reporting better baseline ambulating with a cane. Does not use oxygen at home. After patient returned home, patient reported developing worsening shortness of breath with worsening cough productive of yellow phlegm. Reported fever 101 at home, but no fever documented in the emergency room. Subsequently, patient presented with one episode of nausea, vomiting as per patient secondary to the cough. Upon questioning about smoking, patient reported that when she returned home she smoked vapor cigarette, but patient does have a strong odor of smoking cigarettes and upon further questioning patient also reported that her roommate also smokes, but they do not smoke in the room. Denies any sick contact. Denies any chest pain, abdominal pain, diarrhea, constipation. Does have a cat at home. ALLERGIES: To FLAGYL, NAPROXEN and SULFA DRUGS. PAST MEDICAL HISTORY: 1. COPD. 2. Recurrent pneumonia. 3. Smoker. 4. C. difficile. 5. Hypokalemia. 6. History of alcoholism with withdrawal seizure. 7. History of bipolar disorder. 8. Depression. 9. Anxiety. 10. Agoraphobia. 11. Posttraumatic stress disorder. 12. Migraine headache. 13. Patient is actively being worked by neurology with left-sided weakness for suspected possible multiple sclerosis. PAST SURGICAL HISTORY: Cholecystectomy. SOCIAL HISTORY: Patient smokes one pack of cigarettes per day for the past 35 years. She still actively smokes. Refuses nicotine patch, but receptive to using the gum. Denies any drinking for the past 6 months. Used to be heavy drinker with withdrawal seizure. FAMILY HISTORY: Mother with breast cancer. Father has hypertension and myocardial infarction ([place]) at age 62. REVIEW OF SYSTEMS: Reported nausea, vomiting, significant cough productive of yellow phlegm, as well as fever and generalized weakness. All other review of systems are negative. HOME MEDICATION: - acetaminophen 650 mg by mouth every 4 hours as needed - Ventolin inhaler every 4 hours as needed - albuterol nebulizer treatment every 4 hours as needed - Lipitor 20 mg by mouth nightly - azithromycin 500 mg by mouth daily - cefdinir 300 mg by mouth twice a day - Zyrtec 10 mg by mouth daily as needed - clonazepam 0.5 mg by mouth three times a day - hyoscyamine 0.125 mg sublingually every 6 hours as needed - lamotrigine 150 mg by mouth twice a day - lisinopril 20 mg by mouth daily - multivitamin one tablet by mouth daily - Percocet 5/325 mg by mouth every 4 hours as needed - Protonix 40 mg by mouth daily - Paxil 30 mg by mouth daily - prednisone taper - probiotics one tablet by mouth daily - Seroquel 300 by mouth nightly - Restoril 15 mg by mouth every 2 days as needed for sleep - vitamin D 50,000 units every Friday PHYSICAL EXAMINATION: VITAL SIGNS: Temperature 97.6, pulse 76, respirations 18, blood pressure 167/84, pulse oximetry 94% on room air. GENERAL: Patient obese, alert and oriented times three in no acute distress. HEENT: Normocephalic, atraumatic. PULMONARY: Bilateral rhonchi with expiratory wheeze. Good air movement. CARDIAC: Regular rate and rhythm. Normal S1, S2. ABDOMEN: Soft, nontender, obese. Positive bowel sounds. EXTREMITIES: No clubbing, cyanosis or edema. Chest x-ray bibasilar infiltrates, no change from previous admission. EKG sinus rhythm with no ST segment changes. LABORATORY: WBC 10.6, hemoglobin and hematocrit 11.4/34.4, platelets 335. Chemistry: Sodium 138, potassium 4.4, chloride 103, bicarbonate 29, BUN 7, creatinine 0.43. Lactic acid 1.2. ASSESSMENT AND PLAN: This is a 52-year-old female patient with underlying medical history of Clostridium (C) difficile colitis a year ago, chronic obstructive pulmonary disease (COPD), alcoholism with withdrawal seizure, has not drank for the past 6 months, bipolar disorder, depression, agoraphobia, actively being worked up for multiple sclerosis by neurologist, Dr. Rivers, presented after discharge from the hospital with recent admission for community-acquired bacterial pneumonia with COPD exacerbation. Returned to the hospital with worsening shortness of breath, coughing, nausea, vomiting, and fever. 1. Acute COPD exacerbation with community-acquired bacterial pneumonia and poor compliance, possibly bronchospasm secondary to smoking as well. Sputum induction for sputum culture. Blood culture appreciated. Respiratory panel negative from previous visit. Followup C-reactive protein. Given recurrent pneumonia, will get CT with contrast to further work up and also given smoking history with recurrent pneumonia, will get CT with contrast for further workup. Nebulizer treatments, Solu-Medrol, Advair, Rocephin and Zithromax. Followup for improvement. 2. History of Clostridium (C) difficile. Deescalate antibiotics as soon as possible. Probiotics. 3. Alcoholism. Patient reported not having drank for 6 months. No signs of withdrawal. Will monitor for withdrawal. 4. Left-sided weakness. Patient is being actively followed by Dr. Rivers for workup. Electroencephalogram (EEG), MRI with and without contrast of the brain and spine was scheduled for Friday next week. Will consider inpatient workup if patient remains in the hospital. Outpatient followup with Dr. Rivers. 5. Underlying posttraumatic stress disorder, agoraphobia, depression, anxiety. Continue home medications. 6. Seasonal allergies. Continue home medication. 7. Dyslipidemia. Continue home medication. 8. Smoking. Counseling provided. Nicotine gum. Time spent counseling for smoking cessation 5 minutes. Patient's roommate also smokes, which might also contribute. 9. Hypertension. Continue current medication. 10. Deep venous thrombosis (DVT) prophylaxis. Lovenox subcutaneously. DISPOSITION PLANNING: Pending clinical improvement, CT scan. Smoking cessation consultation 5 minutes spent. Will also need to discuss with the patient that patient's roommate also smokes which might also impact patient's respiratory condition. High risk for readmission and patient and family services (PFS) order has been placed.
[2017-08-03] MEDS ORDERED: IPRATROPIUM 0.5MG/ALBUTEROL 2.5MG INH SOL UD 3ML (DUONEB)(J7620) NEB SCH (02:00)
[2017-08-03] MEDS: ADVAIR HFA 230/21MCG INHALER INH SCH ×3 (04:07→21:00)
--- NOTE | 2017-08-03 05:37 | ECGEPIP ---
Stationary ECG Study [facility] - ED Test Date: 2017-08-02 Pat Name: ANDRES JAMA Department: Room: - Gender: F Home Economics Expert: VidalB: 1965 Requested By: GERALD WALKER Order Number: [id number] Reading MD: Kwesi Dyson Measurements Intervals [place] Rate: 71 P: -9 SD: 107 QRS: 14 QRSD: 97 T: 21 QT: 386 QTc: 421 Interpretive Statements SINUS RHYTHM SIMILAR TO PRIOR ON SAME DATE Electronically Signed On 08-03-2017 5:37:24 EDT by Kwesi Dyson
[2017-08-03 06:00] VITALS: BP 117/69
[2017-08-03] MEDS: methylPREDNISolone INJ 125 MG/2 ML VIAL (J2930) IV SCH ×2 (06:14→14:00)
[2017-08-03 06:52] LABS: MEAN CORPUSCULAR HEMOGLOBIN 31.6 pg (27.0-33.0); MEAN CORPUSCULAR HGB CONC 32.4 g/dl (32.0-36.5); MEAN CORPUSCULAR VOLUME 97.4 fl (80.0-96.0); RED CELL DISTRIBUTION WIDTH 13.9 % (11.5-14.5); WHITE BLOOD COUNT 8.6 10^3/uL (4.0-10.0)
[2017-08-03 07:17] LABS: ANION GAP 4 MEQ/L (8-16); BLOOD UREA NITROGEN 7 MG/DL (7-18); CALCIUM LEVEL 8.4 MG/DL (8.5-10.1); CARBON DIOXIDE LEVEL 32 MEQ/L (21-32); CHLORIDE LEVEL 105 MEQ/L (98-107); CREATININE FOR GFR 0.52 MG/DL (0.55-1.02); GLOMERULAR FILTRATION RATE > 60.0 (>51); GLUCOSE, FASTING 145 MG/DL (70-105); MAGNESIUM LEVEL 2.3 MG/DL (1.8-2.4); POTASSIUM SERUM 4.1 MEQ/L (3.5-5.1); SODIUM LEVEL 141 MEQ/L (136-145)
[2017-08-03] MEDS: IPRATROPIUM 0.5MG/ALBUTEROL 2.5MG INH SOL UD 3ML (DUONEB)(J7620) NEB SCH ×3 (08:00→20:00)
--- NOTE | 2017-08-03 08:04 | REP ---
Chest two views HISTORY: Cough Comparison: 07/29/2017 Patchy densities are present in the lower lobes consistent with bibasilar infiltrates. The heart is normal in size. The pulmonary vasculature is normal in appearance. The bony structure is intact. IMPRESSION: Bibasilar infiltrates unchanged compared to the previous study. Signed by Fernando Hutchins MD 08/03/2017 07:55 A
[2017-08-03] MEDS: LACTOBACILLUS ACIDOPHILUS CAP (BACID) PO SCH ×3 (09:32→17:03)
[2017-08-03] MEDS: MULTIVITAMINS/MINERALS THERAP 1 TAB PO SCH (09:32)
[2017-08-03] MEDS: PANTOPRAZOLE 40MG TAB (PROTONIX) PO SCH (09:32)
[2017-08-03] MEDS: ENOXAPARIN 40 MG/0.4 ML SYRINGE (J1650) SC SCH (09:33)
[2017-08-03] MEDS: PARoxetine 10MG TABLET PO SCH (09:34)
[2017-08-03] MEDS: LISINOPRIL 20 MG TAB PO SCH (09:35)
[2017-08-03] MEDS: PERCOCET 5MG/325MG TAB PO PRN ×3 (09:36→21:40)
[2017-08-03 14:00] VITALS: BP 128/74
[2017-08-03] MEDS ORDERED: ACETAMINOPHEN TAB 650MG DOSE (2X325MG) PO PRN (15:14)
--- NOTE | 2017-08-03 15:19 | IPN ---
DATE: 08/03/2017 Ms. Melgar is feeling much better this morning. She went home yesterday, was exposed to smoke, used her vapor cigarette, and became short of breath. She became quite anxious and came back to the hospital for treatment. Temperature is 97.1, pulse 74, respiratory rate 18, blood pressure 117/69, 94% on room air. Intake and output are notable for a negative fluid balance -100. Body mass index 36.5. She is awake, appropriately interactive, pleasantly conversant. I:E ratio is 1:3. There is good aeration. No wheezes. Mucous membranes are moist. Neck is supple. Heart is in a regular rate and rhythm. LABORATORY DATA: White cell count 8.6, hemoglobin 10.9, and platelets 333. CRP is 0.34. CT of the chest has shown new scattered ground-glass infiltrates bilaterally, upper lobe predominance. ASSESSMENT: This is a 52-year-old with resolving community-acquired pneumonia with chronic obstructive pulmonary disease (COPD) exacerbation with poor compliance and likely bronchospasm related to smoking. PLAN: 1. Infectious disease. We will continue with antibiotics as previously prescribed. Continue with steroids, respiratory toilet. We again discussed smoking cessation at length. We will monitor her clinically overnight. 2. The patient has a history of Clostridium (C) difficile. 3. The patient has a history of alcohol use. Denies alcohol use in the last six months. 4. The patient has suspected multiple sclerosis. Plan to followup with neurology as an outpatient for further workup this week. 5. The patient has posttraumatic stress disorder (PTSD). 6. The patient has dyslipidemia. 7. The patient has appropriate deep vein thrombosis (DVT) prophylaxis.
[2017-08-03] MEDS: CEFDINIR 300 MG CAP (OMNICEF) PO SCH (21:41)
[2017-08-03] MEDS: predniSONE 20 MG TAB PO SCH (21:41)
[2017-08-03 22:00] VITALS: BP 144/70
[2017-08-04 06:00] VITALS: BP 124/68
[2017-08-04 07:30] LABS: MEAN CORPUSCULAR HEMOGLOBIN 31.7 pg (27.0-33.0); WHITE BLOOD COUNT 8.2 10^3/uL (4.0-10.0)
[2017-08-04] MEDS: ADVAIR HFA 230/21MCG INHALER INH SCH (07:39)
[2017-08-04] MEDS: IPRATROPIUM 0.5MG/ALBUTEROL 2.5MG INH SOL UD 3ML (DUONEB)(J7620) NEB SCH (07:44)
[2017-08-04 07:56] LABS: ANION GAP 7 MEQ/L (8-16); BLOOD UREA NITROGEN 12 MG/DL (7-18); CALCIUM LEVEL 8.5 MG/DL (8.5-10.1); CARBON DIOXIDE LEVEL 28 MEQ/L (21-32); CHLORIDE LEVEL 104 MEQ/L (98-107); CREATININE FOR GFR 0.69 MG/DL (0.55-1.02); GLOMERULAR FILTRATION RATE > 60.0 (>51); GLUCOSE, FASTING 167 MG/DL (70-105); MAGNESIUM LEVEL 2.3 MG/DL (1.8-2.4); POTASSIUM SERUM 4.4 MEQ/L (3.5-5.1); SODIUM LEVEL 139 MEQ/L (136-145)
[2017-08-04] MEDS: CEFDINIR 300 MG CAP (OMNICEF) PO SCH (08:12)
[2017-08-04] MEDS: PERCOCET 5MG/325MG TAB PO PRN (08:12)
[2017-08-04] MEDS: MULTIVITAMINS/MINERALS THERAP 1 TAB PO SCH (08:13)
[2017-08-04] MEDS: predniSONE 20 MG TAB PO SCH (08:13)
[2017-08-04] MEDS: PANTOPRAZOLE 40MG TAB (PROTONIX) PO SCH (08:13)
[2017-08-04] MEDS: PARoxetine 10MG TABLET PO SCH (08:14)
[2017-08-04 08:15] VITALS: BP 141/83
[2017-08-04] MEDS: lamoTRIgine 100MG TAB PO SCH (08:15)
[2017-08-04] MEDS: LISINOPRIL 20 MG TAB PO SCH (08:15)
[2017-08-04] MEDS: SENOKOT S TAB PO SCH (08:16)
[2017-08-04] MEDS: LACTOBACILLUS ACIDOPHILUS CAP (BACID) PO SCH (08:16)
[2017-08-04] MEDS: ENOXAPARIN 40 MG/0.4 ML SYRINGE (J1650) SC SCH (08:17)
[2017-08-04] MEDS ORDERED: AZITHROMYCIN 250 MG TAB PO SCH (09:00)
[2017-08-04] MEDS ORDERED: INCR1INH IN (10:35)
[2017-08-04] MEDS ORDERED: BREO1INH3 INH (10:35)
--- NOTE | 2017-08-04 11:43 | IPNPDOC ---
Subjective Date Seen The patient was seen on 08/04/17. Subjective Chief Complaint/HPI The patient is a 52-year-old female admitted with a reason for visit of Copd With Acute Bronchitis. Events since last encounter No complaints this morning. denies any sob , denies any chest pain or cough , no fever or chills, no abdominal pain , nausea or vomiting or diarrhea. Objective Physical Examination General Exam: Positive: Alert, Cooperative, No Acute Distress Eye Exam: Positive: PERRLA, Conjunctiva & lids normal, EOMI, Negative: Sclera icteric ENT Exam: Positive: Atraumatic, Mucous membr. moist/pink, Pharynx Normal Neck Exam: Positive: Supple, Negative: JVD, thyromegaly Chest Exam: Positive: Clear to auscultation, Normal air movement Heart Exam: Positive: Rate Normal, Regular Rhythm, Normal S1, Normal S2, Negative: Murmurs, Rubs Abdomen Exam: Positive: Normal bowel sounds, Soft, Negative: Tenderness, Hepatospenomegaly Extremity Exam: Positive: Normal pulses, Negative: Clubbing, Cyanosis, Edema Skin Exam: Positive: Nl turgor and temperature, Negative: Rash, Breakdown Neuro Exam: Positive: Other (weakness of left upper and lower extremity) Assessment /Plan Problems (1) COPD with acute bronchitis Status: Acute Response to Treatment: Improving Problem Text: will start Patient with breo and incruse continue cefdinir on discharge, finished azithromycin course advised to refrain from smoking or using vaporisers. continue prednisone taper. (2) HTN (hypertension) Status: Chronic (3) Bipolar disorder Status: Chronic (4) Weakness Status: Acute Problem Text: has left sided weakness being worked up for Multiple sclerosis by neurology continue PT and PT. (5) PTSD (post-traumatic stress disorder) Status: Chronic (6) History of alcohol abuse Status: Chronic Problem Text: has not used any alcohol for the past 6 months. has also history of alcohol withdrawal seizure. (7) Migraine Status: Chronic Problem Text: has history of possible complicated migraine. follow up with neurology. Plan/VTE VTE Prophylaxis Ordered?: Yes Disposition discharge home today. VS, I&O, 24H, Fishbone Vital Signs/I&O Vital Signs Date Time Temp Pulse Resp B/P (MAP) Pulse Ox O2 Delivery O2 Flow Rate FiO2 08/04/17 08:15 Room Air 08/04/17 08:15 141/83 08/04/17 08:15 18 08/04/17 06:00 97.0 77 95 I&O- Last 24 Hours up to 6 AM 08/05/17 06:00 Intake Total 360 ml Output Total 1 ml Balance 359 ml Laboratory Data 24H LABS Laboratory Tests 2 08/04/17 06:45: Anion Gap 7L, Glomerular Filtration Rate > 60.0, Blood Urea Nitrogen 12#, Creatinine 0.69, Sodium Level 139, Potassium Level 4.4, Chloride Level 104, Carbon Dioxide Level 28, Calcium Level 8.5, Magnesium Level 2.3, C-Reactive Protein, Quantitative < 0.30 CBC/BMP Laboratory Tests 08/04/17 06:45 Red Blood Count 3.85 L, Mean Corpuscular Volume 99.0 H, Mean Corpuscular Hemoglobin 31.7, Mean Corpuscular Hemoglobin Concent 32.0, Red Cell Distribution Width 14.0, Calcium Level 8.5 Microbiology Microbiology 08/02/17 Blood Culture - Preliminary, Resulted No growth after 24 hours . All specim... 08/02/17 Blood Culture - Preliminary, Resulted No growth after 24 hours . All specim... 08/02/17 Gram Stain - Final, Resulted 08/02/17 Sputum Culture, Resulted Pending 08/02/17 Influenza Virus Type A Antigen - Final, Complete 08/02/17 Influenza Virus Type B Antigen - Final, Complete ABEBE JARAMILLO MD Aug 04, 2017 11:43
[2017-08-09] MEDS ORDERED: VITAMIN D 50,000 UNITS CAPSULE (ERGOCALCIFEROL 1.25MG) PO SCH (09:00)
[2017-08-30] MEDS ORDERED: NORT25CA2 PO (10:45)
[2017-08-30] MEDS ORDERED: NORC1TAB4 PO (10:47)
== END 2017-08-04 11:51 | disposition home or self-care (01) ==
LOC: M ED 19:46 → M ED INP 22:02 → M MSPAV 23:30
PROVIDERS: ADMIT Hospitalist; ATTEND Internal Medicine
DX: J44.1 Chronic obstructive pulmonary disease with (acute) exacerbation (principal); I10 Essential (primary) hypertension; F31.9 Bipolar disorder, unspecified; R53.1 Weakness; G43.909 Migraine, unspecified, not intractable, without status migrainosus; F43.12 Post-traumatic stress disorder, chronic; F10.10 Alcohol abuse, uncomplicated; F17.210 Nicotine dependence, cigarettes, uncomplicated; F41.9 Anxiety disorder, unspecified; F40.00 Agoraphobia, unspecified; Z79.51 Long term (current) use of inhaled steroids; Z79.52 Long term (current) use of systemic steroids; Z79.899 Other long term (current) drug therapy; Z88.2 Allergy status to sulfonamides; Z88.8 Allergy status to other drugs, medicaments and biological substances; R06.02 Shortness of breath; E78.5 Hyperlipidemia, unspecified
CPT/HCPCS: 36415; 71020; 71260; 80048; 80076; 82550; 82553; 83605; 83735; 83880; 85025; 85027; 86140; 87040; 87070; 87205; 87804; 93000; 93041; 94640; 94760; 96365; 96366; 96372; 96375; 99285; J0456; J0696; J1650; J2930; Q9967

== ENCOUNTER 2017-08-13 18:03 | Emergency (ER) | payer OTHER ==
[~2017-08-13] VITALS: Ht 152.4 cm; Wt 84.1 kg
[~2017-08-13 18:03] MED LIST changes: +BREO1INH3 INH; +INCR1INH IN
[2017-08-13] MEDS ORDERED: methylPREDNISolone INJ 125 MG/2 ML VIAL (J2930) IV ONE (20:30)
[2017-08-13] MEDS ORDERED: IPRATROPIUM 0.5MG/ALBUTEROL 2.5MG INH SOL UD 3ML (DUONEB)(J7620) NEB ONE (20:30)
[2017-08-13] MEDS ORDERED: NS 500 ML IV ONE (20:30)
[2017-08-13] MEDS ORDERED: PRED20TA PO (21:50)
[2017-08-13] MEDS ORDERED: LEVA1TAB2 PO (21:52)
[2017-08-13] MEDS ORDERED: NEBUMIS2 XX (21:53)
[2017-08-13 21:59] VITALS: BP 118/70
--- NOTE | 2017-08-14 03:19 | REP ---
Clinical: Shortness of breath. Technique: PA and lateral. Comparison: 08/02/2017. Findings: Subtle basilar air space disease cannot be excluded. Mediastinum and cardiac silhouette normal. No effusion. No pneumothorax. Skeletal structures intact. Impression: Subtle basilar infiltrate/atelectasis cannot be excluded. Signed by Scooter Leija MD 08/14/2017 03:10 A
[2017-08-30] MEDS ORDERED: NORT25CA2 PO (10:45)
[2017-08-30] MEDS ORDERED: NORC1TAB4 PO (10:47)
== END 2017-08-13 22:01 | disposition home or self-care (01) ==
LOC: M ED 18:03
DX: J44.1 Chronic obstructive pulmonary disease with (acute) exacerbation (principal); J18.9 Pneumonia, unspecified organism; R56.9 Unspecified convulsions; G35 Multiple sclerosis; E78.00 Pure hypercholesterolemia, unspecified; I10 Essential (primary) hypertension; K57.90 Diverticulosis of intestine, part unspecified, without perforation or abscess without bleeding; K52.9 Noninfective gastroenteritis and colitis, unspecified; Z86.19 Personal history of other infectious and parasitic diseases; Z87.440 Personal history of urinary (tract) infections; M54.5 Low back pain; F41.9 Anxiety disorder, unspecified; F32.9 Major depressive disorder, single episode, unspecified; F43.10 Post-traumatic stress disorder, unspecified; F17.200 Nicotine dependence, unspecified, uncomplicated; Z79.899 Other long term (current) drug therapy; Z88.6 Allergy status to analgesic agent; Z88.2 Allergy status to sulfonamides; Z88.1 Allergy status to other antibiotic agents
CPT/HCPCS: 71020; 94640; 96374; 99283; J2930

== ENCOUNTER 2017-09-19 18:27 | Emergency (ER) | payer OTHER ==
[~2017-09-19] VITALS: Ht 152.4 cm; Wt 83.2 kg
[~2017-09-19 18:27] MED LIST changes: +LEVA1TAB2 PO; +NEBUMIS2 XX; +NORC1TAB4 PO; +NORT25CA2 PO
--- NOTE | 2017-09-19 19:10 | REPUSA ---
CT of the head Clinical history: seizure. Comparison: 08/30/2017. Technique: Multiple axial CT images were obtained through the head without administration of contrast . Findings: The ventricles and sulci are symmetric bilaterally. There is no evidence of acute hemorrhag e or infarct. There is no midline shift, mass effect, or extra-axial fluid collection. The osseous st ructures are unremarkable. The visualized paranasal sinuses and mastoid air cells are clear. Impression: Negative study.
--- NOTE | 2017-09-19 19:24 | REP ---
SINGLE VIEW CHEST: COMPARISON: 08/30/2017 There is mild bibasilar fibroatelectatic change without evidence of acute infiltrate. Heart is normal in size and the mediastinal silhouette is unremarkable. IMPRESSION: Mild chronic changes without acute infiltrate. Signed by Mk Ann MD 09/19/2017 08:13 P
[2017-09-19 19:33] LABS: MEAN CORPUSCULAR HEMOGLOBIN 32.1 pg (27.0-33.0); MEAN CORPUSCULAR HGB CONC 34.1 g/dl (32.0-36.5); MEAN CORPUSCULAR VOLUME 94.2 fl (80.0-96.0); PLATELET COUNT, AUTOMATED 323 10^3/uL (150-450); RED CELL DISTRIBUTION WIDTH 13.4 % (11.5-14.5); WHITE BLOOD COUNT 12.6 10^3/uL (4.0-10.0)
[2017-09-19 19:36] LABS: ADD MANUAL DIFFER YES; DIFF SLIDE NUMBER 309; POSITIVE DIFF POS FLAG; POSITIVE MORPH POS FLAG
[2017-09-19 20:01] LABS: ANION GAP 9 MEQ/L (8-16); BLOOD UREA NITROGEN 6 MG/DL (7-18); CALCIUM LEVEL 9.1 MG/DL (8.5-10.1); CARBON DIOXIDE LEVEL 26 MEQ/L (21-32); CHLORIDE LEVEL 103 MEQ/L (98-107); CREATININE FOR GFR 0.59 MG/DL (0.55-1.02); GLOMERULAR FILTRATION RATE > 60.0 (>51); GLUCOSE, FASTING 113 MG/DL (70-105); SODIUM LEVEL 138 MEQ/L (136-145)
[2017-09-19 20:11] LABS: BASOPHILS 1 % (0-4); EOSINOPHILS 4 % (0-5)
[2017-09-19] MEDS ORDERED: TOPIRAMATE (TopAMAX) 25 MG TAB PO ONE (22:45)
[2017-09-19] MEDS ORDERED: TOPA50TA8 PO (22:46)
[2017-09-19 23:08] VITALS: BP 148/99
[2017-09-22 14:25] LABS: TOPIRAMATE LEVEL None Detected ug/mL (2.0-25.0)
--- NOTE | 2017-09-23 08:14 | ECGEPIP ---
Stationary ECG Study [facility] - ED Test Date: 2017-09-19 Pat Name: ANDRES JAMA Department: Room: - Gender: F Barrel Line Operator: VIDA : 1965 Requested By: YEHUDA Andrew Order Number: [id number] Reading MD: Jania Alonso Measurements Intervals [place] Rate: 79 P: 39 [place]: 128 QRS: 11 QRSD: 92 T: 67 QT: 375 QTc: 430 Interpretive Statements SINUS RHYTHM DECREASED RATE 08/30/17 Electronically Signed On 09-20-2017 8:41:06 EST by Jania Alonso
== END 2017-09-19 23:13 | disposition home or self-care (01) ==
LOC: EDBD 18:27 → M ED 18:27
DX: G40.909 Epilepsy, unspecified, not intractable, without status epilepticus (principal); G35 Multiple sclerosis; I10 Essential (primary) hypertension; R53.1 Weakness; F17.200 Nicotine dependence, unspecified, uncomplicated; Z79.899 Other long term (current) drug therapy; Z88.2 Allergy status to sulfonamides; Z88.6 Allergy status to analgesic agent; Z88.1 Allergy status to other antibiotic agents

== ENCOUNTER → 2017-10-02 | Outpatient (CLI) | payer OTHER ==
[~2017-10-02] MED LIST changes: +PRED20TA; +TOPA50TA8 PO; +[UNRECOGNIZED DRUG - OTHER]
--- NOTE | 2017-10-02 13:23 | REP ---
Clinical: COPD with acute exacerbation. Technique: PA and lateral. Comparison: 08/13/2017. Findings: Mediastinum and cardiac silhouette are within normal limits and stable. Lung ventura demonstrate chronic changes related to COPD. Subtle superimposed patchy lower lobe atelectasis cannot be excluded. No effusion. No pneumothorax. Skeletal structures intact. Impression: Cannot exclude subtle superimposed atelectasis. Consider chest CT for further investigation if the patient remains symptomatic. Signed by Scooter Leija MD 10/02/2017 10:21 A
== END ==
LOC: M LAB 09:29
PROVIDERS: ATTEND Family Medicine
DX: J44.1 Chronic obstructive pulmonary disease with (acute) exacerbation (principal)

== ENCOUNTER 2017-10-06 11:05 | Emergency (ER) | payer MEDICAID, OTHER ==
[~2017-10-06] VITALS: Ht 152.4 cm; Wt 83.5 kg
[~2017-10-06 11:05] MED LIST changes: -PRED20TA; -[UNRECOGNIZED DRUG - OTHER]
[2017-10-06] MEDS ORDERED: PRED20TA (11:30)
[2017-10-06] MEDS ORDERED: DOXY100C37 (11:30)
[2017-10-06] MEDS ORDERED: [UNRECOGNIZED DRUG - OTHER] (11:30)
[2017-10-06] MEDS ORDERED: IPRATROPIUM 0.5MG/ALBUTEROL 2.5MG INH SOL UD 3ML (DUONEB)(J7620) NEB ONE (14:00)
--- NOTE | 2017-10-06 14:47 | REP ---
CHEST X-RAY PA AND LATERAL: 10/06/2017 COMPARISON: 10/02/2017, 08/13/2017. CLINICAL HISTORY: Cough. Left-sided chest pain. Compared to the to previous studies, today's lung ventura also are well inflated with CP angles sharply defined. However, compared to 4 days ago, there is improvement in the patchy bibasilar areas of atelectasis or early infiltrate. I do not see effusion, dense consolidation with air bronchograms, pleural thickening, pneumothorax or other parenchymal finding. Heart, mediastinal, hilar contours are normal. There are a few cuffed bronchi in the perihilar regions that might reflect reactive airway disease or bronchitis. Bony thorax shows no compression deformity. There is no free air. Some right upper quadrant clips are noted. IMPRESSION: 1. Some interval improvement in patchy bibasilar atelectatic or infiltrative changes noted on the previous study. No effusion, dense consolidation with air bronchogram or other acute finding. Perihilar changes of bronchitis or reactive airway disease suggested. 2. No cardiomegaly or edema. Bones intact. Airway and aorta intact. Signed by Wander Maldonado MD 10/07/2017 08:12 P
[2017-10-06 15:27] VITALS: BP 147/78
== END 2017-10-06 15:29 | disposition home or self-care (01) ==
LOC: M ED 11:05
DX: J45.901 Unspecified asthma with (acute) exacerbation (principal); J18.1 Lobar pneumonia, unspecified organism; J06.9 Acute upper respiratory infection, unspecified; G35 Multiple sclerosis; G40.909 Epilepsy, unspecified, not intractable, without status epilepticus; G43.909 Migraine, unspecified, not intractable, without status migrainosus; I10 Essential (primary) hypertension; K57.90 Diverticulosis of intestine, part unspecified, without perforation or abscess without bleeding; F31.9 Bipolar disorder, unspecified; F17.200 Nicotine dependence, unspecified, uncomplicated; Z79.899 Other long term (current) drug therapy; Z88.2 Allergy status to sulfonamides; Z88.6 Allergy status to analgesic agent; Z88.1 Allergy status to other antibiotic agents

== ENCOUNTER 2017-10-23 06:18 | Emergency (ER) | payer MEDICAID, OTHER, SELFPAY ==
[~2017-10-23] VITALS: Ht 152.4 cm; Wt 83.6 kg
[~2017-10-23 06:18] MED LIST changes: +PRED20TA; +[UNRECOGNIZED DRUG - OTHER]
[2017-10-23 07:12] LABS: VENOUS BASE EXCESS 13.1 (-2.0-2.0); VENOUS O2 SATURATION 97.7 % (60.0-80.0); VENOUS PARTIAL PRESSURE O2 90.8 mmHg (30.0-50.0); VENOUS TOTAL CO2 37.8 MEQ/L (24.0-28.0)
[2017-10-23 07:13] LABS: BASO % 0.2 % (0.0-1.0); EOS # 0.1 10^3/uL (0.0-0.50); EOS % 0.6 % (0.0-3.0); IMMATURE GRANULOCYTE % 0.4 % (0-0); LYMPH # 3.2 10^3/uL (1.5-4.5); LYMPH % 26.1 % (24.0-44.0); MEAN CORPUSCULAR HEMOGLOBIN 30.4 pg (27.0-33.0); MEAN CORPUSCULAR HGB CONC 34.2 g/dl (32.0-36.5); MEAN CORPUSCULAR VOLUME 88.9 fl (80.0-96.0); MONO # 1.4 10^3/uL (0.0-0.8); MONO % 11.7 % (0.0-5.0); NEUTROPHILS # 7.4 10^3/uL (1.8-7.7); PLATELET COUNT, AUTOMATED 392 10^3/uL (150-450); RED CELL DISTRIBUTION WIDTH 14.3 % (11.5-14.5); WHITE BLOOD COUNT 12.2 10^3/uL (4.0-10.0)
[2017-10-23 07:35] LABS: ANION GAP 7 MEQ/L (8-16); BLOOD UREA NITROGEN 16 MG/DL (7-18); CALCIUM LEVEL 8.9 MG/DL (8.5-10.1); CARBON DIOXIDE LEVEL 40 MEQ/L (21-32); CHLORIDE LEVEL 84 MEQ/L (98-107); CREATININE FOR GFR 0.75 MG/DL (0.55-1.02); GLOMERULAR FILTRATION RATE > 60.0 (>51); GLUCOSE, FASTING 129 MG/DL (70-105); POTASSIUM SERUM 2.6 MEQ/L (3.5-5.1); SODIUM LEVEL 131 MEQ/L (136-145)
[2017-10-23] MEDS ORDERED: IPRATROPIUM 0.5MG/ALBUTEROL 2.5MG INH SOL UD 3ML (DUONEB)(J7620) NEB SCH (07:45)
[2017-10-23] MEDS ORDERED: KCL 10MEQ IN 100ML SWI (KRUN) 10 MEQ in APPROPRIATE DILUENT 1 EA IV ONE ×2 (07:45)
[2017-10-23] MEDS ORDERED: POTASSIUM CHLORIDE 10 MEQ SR TABLET PO ONE (08:00)
--- NOTE | 2017-10-23 08:00 | REP ---
Chest x-ray: Two views. History: Dyspnea and cough. . Comparison study: October 06, 2017 . Findings: The lungs are well inflated and free of infiltrate. The pleural angles are sharp. The heart size is normal. Pulmonary vasculature is not increased. No significant bony abnormality is seen. Impression: Negative chest x-ray. Signed by Aki Logan MD 10/23/2017 07:52 A
[2017-10-23] MEDS ORDERED: K-TA1TAB PO (10:43)
[2017-10-23 10:53] VITALS: BP 103/59
--- NOTE | 2017-10-24 16:38 | ECGEPIP ---
Stationary ECG Study [facility] - ED Test Date: 2017-10-23 Pat Name: ANDRES JAMA Department: Room: - Gender: F Awning Installer: [facility] : 1965 Requested By: PEDRO Shah Order Number: [id number] Reading MD: Jania Alonso Measurements Intervals [place] Rate: 95 P: 40 [place]: 126 QRS: 11 QRSD: 96 T: 89 QT: 375 QTc: 472 Interpretive Statements SINUS RHYTHM ST DEVIATION AND MODERATE T-WAVE ABNORMALITY, CONSIDER ISCHEMIA, NEW 09/19/17, CLINICAL CORRELATION Electronically Signed On 10-24-2017 16:38:06 EST by Jania Alonso
--- NOTE | 2017-10-24 16:39 | ECGEPIP ---
Stationary ECG Study [facility] - ED Test Date: 2017-10-23 Pat Name: ANDRES JAMA Department: Room: - Gender: F Instrumentation Supervisor: JIM : 1965 Requested By: Kwesi Rodas Order Number: [id number] Reading MD: Jania Alonso Measurements Intervals [place] Rate: 82 P: 52 [place]: 128 QRS: 28 QRSD: 92 T: 67 QT: 386 QTc: 452 Interpretive Statements SINUS RHYTHM MODERATE T-WAVE ABNORMALITY, CONSIDER ISCHEMIA DECREASED RATE 10/23/17 Electronically Signed On 10-24-2017 16:39:11 EST by Jania Alonso
== END 2017-10-23 11:21 | disposition home or self-care (01) ==
LOC: EDBD 06:18 → M ED 06:18
DX: J45.909 Unspecified asthma, uncomplicated (principal); F10.10 Alcohol abuse, uncomplicated; E87.6 Hypokalemia; F31.9 Bipolar disorder, unspecified; F43.10 Post-traumatic stress disorder, unspecified; G43.909 Migraine, unspecified, not intractable, without status migrainosus; F17.200 Nicotine dependence, unspecified, uncomplicated; Z79.899 Other long term (current) drug therapy; Z88.2 Allergy status to sulfonamides; Z88.6 Allergy status to analgesic agent; Z88.8 Allergy status to other drugs, medicaments and biological substances
CPT/HCPCS: 71020; 80048; 82550; 82553; 82803; 85025; 93005; 93041; 94640; 96365; 99285; G0480

== ENCOUNTER → 2017-10-29 | Outpatient (REF) | payer OTHER, MEDICAID ==
[2017-10-29 11:44] LABS: ANION GAP 9 MEQ/L (8-16); BLOOD UREA NITROGEN 9 MG/DL (7-18); CALCIUM LEVEL 8.5 MG/DL (8.5-10.1); CARBON DIOXIDE LEVEL 24 MEQ/L (21-32); CHLORIDE LEVEL 107 MEQ/L (98-107); CREATININE FOR GFR 0.59 MG/DL (0.55-1.02); GLOMERULAR FILTRATION RATE > 60.0 (>51); GLUCOSE, FASTING 110 MG/DL (70-105); POTASSIUM SERUM 4.2 MEQ/L (3.5-5.1); SODIUM LEVEL 140 MEQ/L (136-145)
== END ==
LOC: M SFHCPLAZ 09:07
DX: E87.6 Hypokalemia (principal); R53.82 Chronic fatigue, unspecified

== ENCOUNTER → 2017-11-27 | Outpatient (CLI) | payer MEDICAID | LOC: M RAD 06:41 | DX: R05 Cough (principal); R91.8 Other nonspecific abnormal finding of lung field | CPT/HCPCS: 71046 ==

== ENCOUNTER 2017-12-01 16:05 | Emergency (ER) | payer MEDICAID | END 2017-12-01 19:27 | disposition left against medical advice (07) | LOC: M ED 16:05 | DX: R06.02 Shortness of breath (principal); Z53.21 Procedure and treatment not carried out due to patient leaving prior to being seen by health care provider ==

== ENCOUNTER → 2017-12-19 | Outpatient (CLI) | payer MEDICAID, OTHER | LOC: M PAIN 10:00 | DX: G89.29 Other chronic pain (principal); M54.5 Low back pain; M46.1 Sacroiliitis, not elsewhere classified; I10 Essential (primary) hypertension; J44.9 Chronic obstructive pulmonary disease, unspecified; F31.9 Bipolar disorder, unspecified; F43.10 Post-traumatic stress disorder, unspecified; G43.909 Migraine, unspecified, not intractable, without status migrainosus; K21.9 Gastro-esophageal reflux disease without esophagitis; Z79.899 Other long term (current) drug therapy; F17.210 Nicotine dependence, cigarettes, uncomplicated; Z88.2 Allergy status to sulfonamides; Z88.6 Allergy status to analgesic agent; Z88.1 Allergy status to other antibiotic agents | CPT/HCPCS: G0463 ==

== ENCOUNTER → 2017-12-22 | Outpatient (REF) | payer OTHER, MEDICAID | LOC: M SFHCPLAZ 11:20 | DX: R19.7 Diarrhea, unspecified (principal) | CPT/HCPCS: 87507 ==

== ENCOUNTER 2018-01-04 07:33 | Emergency (ER) | payer MEDICAID, OTHER ==
[2018-01-04] MEDS: CLINDAMYCIN 150 MG CAP PO (08:08)
[2018-01-04] MEDS: ACETAMINOPH W/CODEINE #3 TAB UD PO (08:08)
== END 2018-01-04 08:16 | disposition home or self-care (01) ==
LOC: M ED 07:33
DX: K04.7 Periapical abscess without sinus (principal); G35 Multiple sclerosis; J44.9 Chronic obstructive pulmonary disease, unspecified; I10 Essential (primary) hypertension; E78.00 Pure hypercholesterolemia, unspecified; F41.9 Anxiety disorder, unspecified; F31.9 Bipolar disorder, unspecified; F43.10 Post-traumatic stress disorder, unspecified; F17.210 Nicotine dependence, cigarettes, uncomplicated; Z79.899 Other long term (current) drug therapy; Z88.8 Allergy status to other drugs, medicaments and biological substances; Z88.2 Allergy status to sulfonamides; Z98.890 Other specified postprocedural states; Z86.69 Personal history of other diseases of the nervous system and sense organs
CPT/HCPCS: 99283

== ENCOUNTER → 2018-01-23 | Outpatient (CLI) | payer MEDICAID | LOC: M PAIN 08:30 | DX: M54.5 Low back pain (principal); M79.1 Myalgia; G89.29 Other chronic pain; I10 Essential (primary) hypertension; J44.9 Chronic obstructive pulmonary disease, unspecified; F31.9 Bipolar disorder, unspecified; F43.10 Post-traumatic stress disorder, unspecified; G43.909 Migraine, unspecified, not intractable, without status migrainosus; K21.9 Gastro-esophageal reflux disease without esophagitis; F17.210 Nicotine dependence, cigarettes, uncomplicated; Z79.899 Other long term (current) drug therapy; Z90.49 Acquired absence of other specified parts of digestive tract | CPT/HCPCS: G0463 ==

== ENCOUNTER 2018-02-23 09:08 | Emergency (ER) | payer MEDICAID, OTHER | END 2018-02-23 11:00 | disposition home or self-care (01) | LOC: M ED 09:08 | DX: R20.2 Paresthesia of skin (principal); I10 Essential (primary) hypertension; E78.5 Hyperlipidemia, unspecified; K21.9 Gastro-esophageal reflux disease without esophagitis; F43.10 Post-traumatic stress disorder, unspecified; F31.9 Bipolar disorder, unspecified; G40.909 Epilepsy, unspecified, not intractable, without status epilepticus; G89.29 Other chronic pain; F17.210 Nicotine dependence, cigarettes, uncomplicated; Z79.899 Other long term (current) drug therapy; Z88.2 Allergy status to sulfonamides; Z88.8 Allergy status to other drugs, medicaments and biological substances; Z86.69 Personal history of other diseases of the nervous system and sense organs; Z87.42 Personal history of other diseases of the female genital tract | CPT/HCPCS: 99284 ==

== ENCOUNTER 2018-03-31 07:44 | Day surgery (SDC) | payer MEDICAID, SELFPAY ==
[2018-03-31] MEDS: NS 1,000 ML IV (08:42)
[2018-03-31] MEDS ORDERED: PROPOFOL 200 MG/20 ML VIAL As Ordered ×2 (10:30→10:31)
[2018-03-31] MEDS ORDERED: LIDOCAINE 2% INJ 100 MG/5 ML SDV (FOR ANES.) As Ordered (10:30)
== END 2018-03-31 10:56 | disposition home or self-care (01) ==
LOC: M OPP 07:44
DX: K29.70 Gastritis, unspecified, without bleeding (principal); I10 Essential (primary) hypertension; F31.9 Bipolar disorder, unspecified; F41.9 Anxiety disorder, unspecified; G35 Multiple sclerosis; K57.92 Diverticulitis of intestine, part unspecified, without perforation or abscess without bleeding; J44.9 Chronic obstructive pulmonary disease, unspecified; Z79.899 Other long term (current) drug therapy; Z88.8 Allergy status to other drugs, medicaments and biological substances; Z78.0 Asymptomatic menopausal state; F17.210 Nicotine dependence, cigarettes, uncomplicated; Z80.9 Family history of malignant neoplasm, unspecified; Z82.49 Family history of ischemic heart disease and other diseases of the circulatory system
CPT/HCPCS: 43239

== ENCOUNTER 2018-05-16 06:42 | Emergency (ER) | payer MEDICAID ==
[2018-05-16] MEDS ORDERED: methylPREDNISolone INJ 125 MG/2 ML VIAL (J2930) IV (09:45)
[2018-05-16 09:49] LABS: BASO # 0.1 10^3/uL (0.0-0.2); BASO % 0.9 % (0.0-1.0); EOS # 0.3 10^3/uL (0.0-0.50); EOS % 3.2 % (0.0-3.0); HEMATOCRIT 40.7 % (36.0-47.0); HEMOGLOBIN 13.6 g/dl (12.0-15.5); IMMATURE GRANULOCYTE % 0.2 % (0-3.0); LYMPH # 3.6 10^3/uL (1.5-4.5); MEAN CORPUSCULAR HEMOGLOBIN 30.4 pg (27.0-33.0); MEAN CORPUSCULAR HGB CONC 33.4 g/dl (32.0-36.5); MEAN CORPUSCULAR VOLUME 90.8 fl (80.0-96.0); MONO # 0.9 10^3/uL (0.0-0.8); MONO % 10.1 % (0.0-5.0); NEUTROPHILS % 45.6 % (36.0-66.0); PLATELET COUNT, AUTOMATED 303 10^3/uL (150-450); RED BLOOD COUNT 4.48 10^6/uL (4.00-5.40); RED CELL DISTRIBUTION WIDTH 13.4 % (11.5-14.5); WHITE BLOOD COUNT 8.9 10^3/uL (4.0-10.0)
[2018-05-16] MEDS: methylPREDNISolone 1,000 MG, VIAL MATE ADAPTER 1 EACH in D5W 250 ML IV (09:53)
[2018-05-16 10:13] LABS: ANION GAP 5 MEQ/L (8-16); BLOOD UREA NITROGEN 11 MG/DL (7-18); C REACTIVE PROTEIN QUANTITATIV < 0.30 MG/DL (0.00-0.30); CALCIUM LEVEL 8.5 MG/DL (8.5-10.1); CARBON DIOXIDE LEVEL 27 MEQ/L (21-32); CHLORIDE LEVEL 106 MEQ/L (98-107); CREATININE FOR GFR 0.55 MG/DL (0.55-1.30); GLOMERULAR FILTRATION RATE > 60.0 (>51); GLUCOSE, FASTING 89 MG/DL (70-100); POTASSIUM SERUM 4.2 MEQ/L (3.5-5.1); SODIUM LEVEL 138 MEQ/L (136-145)
[2018-05-16] MEDS: NORCO, ANEXSIA 5/325MG TABLET (HYDROcodone/ACETAMINOPHEN) PO (10:16)
[2018-05-16 10:28] LABS: ERYTHROCYTE SEDIMENTATION RATE 22 mm/hr (0-30)
== END 2018-05-16 11:25 | disposition home or self-care (01) ==
LOC: M ED 06:42
DX: H46.8 Other optic neuritis (principal); G35 Multiple sclerosis; G43.909 Migraine, unspecified, not intractable, without status migrainosus; I10 Essential (primary) hypertension; J44.9 Chronic obstructive pulmonary disease, unspecified; K21.9 Gastro-esophageal reflux disease without esophagitis; F31.9 Bipolar disorder, unspecified; Z72.0 Tobacco use; Z79.899 Other long term (current) drug therapy; Z88.8 Allergy status to other drugs, medicaments and biological substances; Z88.2 Allergy status to sulfonamides
CPT/HCPCS: J2930

== ENCOUNTER 2018-05-17 06:12 | Emergency (ER) | payer OTHER, MEDICAID ==
[2018-05-17] MEDS: methylPREDNISolone 1,000 MG, VIAL MATE ADAPTER 1 EACH in D5W 250 ML IV (07:16)
[2018-05-17] MEDS: NORCO, ANEXSIA 5/325MG TABLET (HYDROcodone/ACETAMINOPHEN) PO (07:16)
== END 2018-05-17 08:02 | disposition home or self-care (01) ==
LOC: M ED 06:12
DX: H46.9 Unspecified optic neuritis (principal); I10 Essential (primary) hypertension; G35 Multiple sclerosis; G43.909 Migraine, unspecified, not intractable, without status migrainosus; J44.9 Chronic obstructive pulmonary disease, unspecified; K21.9 Gastro-esophageal reflux disease without esophagitis; F31.9 Bipolar disorder, unspecified; Z72.0 Tobacco use; Z79.899 Other long term (current) drug therapy; Z88.2 Allergy status to sulfonamides; Z88.8 Allergy status to other drugs, medicaments and biological substances
CPT/HCPCS: J2930

== ENCOUNTER 2018-05-18 12:15 | Emergency (ER) | payer OTHER ==
[2018-05-18] MEDS: NORCO, ANEXSIA 5/325MG TABLET (HYDROcodone/ACETAMINOPHEN) PO (13:12)
[2018-05-18] MEDS: methylPREDNISolone 1,000 MG, VIAL MATE ADAPTER 1 EACH in D5W 250 ML IV (13:20)
== END 2018-05-18 14:31 | disposition home or self-care (01) ==
LOC: M ED 12:15
DX: Z09 Encounter for follow-up examination after completed treatment for conditions other than malignant neoplasm (principal); H46.9 Unspecified optic neuritis; Z72.0 Tobacco use; Z79.899 Other long term (current) drug therapy; Z88.8 Allergy status to other drugs, medicaments and biological substances; Z88.2 Allergy status to sulfonamides
CPT/HCPCS: J2930

== ENCOUNTER → 2018-05-18 | Outpatient (CLI) | payer MEDICAID, OTHER ==
[~2018-05-18] MED LIST changes: -/ESOM40CA OR; -/LAMO15TA PO; -/LAMO20TA OR; -/MOXI40TA PO; -ADV250INH INH; -ALBU0.63 IN; -ALBU17IN INH; -ALBU83IN INH; -AMOX875T PO; -ATOR1TAB21 PO; -AZIT-12 PO; -AZIT500T2 PO; -BACITAB PO; -BIAX500T PO; -BREO1INH INH; -BREO1INH3 INH; -BUSP15TA47 PO; -CEFD1CAP8 PO; -CETI10TA PO; -CHERSYP3 PO; -CLON0.5T PO; -CLON1TAB PO; -COMBAER6 INH; -DEPA500T2 PO; -DOXY-278 PO; -DOXY100C37; -DRIS50002 PO; -FLON1SPR; -FOLI1TAB4 PO; -GEMF600T PO; -GUAI1TAB PO; -HYDR50TA70 PO; -HYDRO50TAB PO; -HYOS1TAB SL; -IBUP80TA PO; -INCR1INH IN; -INCR1INH INH; -INVE234I IM; -KLON0.5T; -KLON1TAB PO; -LAMI100T PO; -LAMI1TAB9 PO; -LAMI25TA OR; -LAMO150T PO; -LEVA1TAB2 PO; -LEVO500T3 PO; -LIPI10TA PO; -LISI-538 PO; -LISI20TA5 OR; -MACR100C43 PO; -MICR10CA PO; -MIRA33504 PO; -MUCI600T37 PO; -NEBUMIS2 XX; -NEOM1SUS13; -NEXI40CA PO; -NICO14DI20 TD; -NICO2GUM62 PO; -NICO4GUM2 PO; -NICO4GUM31 PO; -NORC1TAB4 PO; -NORT25CA2 PO; -OMEP20CA3 PO; -OSCA200T PO; -OXAZ30CA2 PO; -OXYC1TAB23 PO; -PANT40TA2 PO; -PARO25TAB OR; -PAXI20TA29 PO; -PAXI20TA3 PO; -PAXI30TA11 PO; -PAXI30TA2 PO; -PAXI40TA10 PO; -PAXIL PO; -PERCOCET PO; -PRED10TA2 PO; -PRED20TA; -PRED20TA PO; -PROB1TAB PO; +PROHANCE 279.3MG/ML 15ML VIAL (A9576) As Ordered; +PROHANCE 279.3MG/ML 5ML VIAL (A9576) As Ordered; -QUET1TAB10 PO; -QUET30XR PO; -QUET5TAB PO; -RISP3TAB20 PO; -SERO1TAB2 PO; -SERO200T PO; -SERO200T2 PO; -SERO400T OR; -SERO400T PO; -SPIR1CAP INH; -TEMA15CA2 PO; -TEMA7.5C PO; -TESS100C PO; -THIA100TA PO; -TOPA1TAB PO; -TOPA50TA8 PO; -TRAZ50TA11 PO; -TYLE325T5 PO; -TYLE500T78 PO; -Thiamine Hcl PO; -VANC1SUS PO; -VANC250C2 PO; -VENTAER IN; -VITA1CAP40; -VITMTA PO; -[UNRECOGNIZED DRUG - OTHER]; -spiriva INH
== END ==
LOC: M RAD 10:21
DX: R93.0 Abnormal findings on diagnostic imaging of skull and head, not elsewhere classified (principal); H47.10 Unspecified papilledema
CPT/HCPCS: A9576

== ENCOUNTER 2018-06-07 15:24 | Emergency (ER) | payer MEDICAID, OTHER ==
[2018-06-07] MEDS: NORCO, ANEXSIA 5/325MG TABLET (HYDROcodone/ACETAMINOPHEN) PO (16:27)
[2018-06-07] MEDS: methylPREDNISolone 1,000 MG, VIAL MATE ADAPTER 1 EACH in D5W 250 ML IV (17:07)
[2018-06-07] MEDS: NORCO 5/325MG TABLET (BULK FOR ED) PO (18:15)
== END 2018-06-07 18:24 | disposition home or self-care (01) ==
LOC: M ED 15:24
DX: H46.9 Unspecified optic neuritis (principal); Z72.0 Tobacco use; G43.909 Migraine, unspecified, not intractable, without status migrainosus; R56.9 Unspecified convulsions; I10 Essential (primary) hypertension; E78.00 Pure hypercholesterolemia, unspecified; I51.9 Heart disease, unspecified; Z87.01 Personal history of pneumonia (recurrent); J44.9 Chronic obstructive pulmonary disease, unspecified; K21.9 Gastro-esophageal reflux disease without esophagitis; K57.32 Diverticulitis of large intestine without perforation or abscess without bleeding; Z86.19 Personal history of other infectious and parasitic diseases; Z87.440 Personal history of urinary (tract) infections; M54.9 Dorsalgia, unspecified; F41.9 Anxiety disorder, unspecified; F32.9 Major depressive disorder, single episode, unspecified; F31.9 Bipolar disorder, unspecified; F43.10 Post-traumatic stress disorder, unspecified; Z79.899 Other long term (current) drug therapy; Z88.6 Allergy status to analgesic agent; Z88.2 Allergy status to sulfonamides; Z88.8 Allergy status to other drugs, medicaments and biological substances
CPT/HCPCS: J2930

== ENCOUNTER → 2018-06-23 | Outpatient (REF) | payer OTHER, MEDICAID ==
[2018-06-23 12:37] LABS: APPEARANCE, URINE HAZY (CLEAR); BACTERIA, URINE AUTO 1+ (NEGATIVE); BILIRUBIN, URINE AUTO NEGATIVE (NEGATIVE); BLOOD, URINE BLOOD 1+ (NEGATIVE); COLOR, URINE YELLOW (YELLOW); GLUCOSE, URINE (UA) AUTO NEGATIVE (NEGATIVE); KETONE, URINE AUTO TRACE mg/dL (NEGATIVE); LEUKOCYTE ESTERASE, URINE AUTO NEGATIVE (NEGATIVE); MUCUS, URINE SMALL (NEGATIVE); NITRITE, URINE AUTO NEGATIVE (NEGATIVE); PROTEIN, URINE AUTO NEGATIVE (NEGATIVE); RBC, URINE AUTO 8 /HPF (0-3); SPECIFIC GRAVITY URINE AUTO 1.019 (1.002-1.035); SQUAMOUS EPITHELIAL CELL UR AU 12 /HPF (0-6); UROBILINOGEN, URINE AUTO 0.2 mg/dL (0.0-2.0); WBC, URINE AUTO 0 /HPF (0-3)
== END ==
LOC: M SFHCPLAZ 12:02
DX: R39.15 Urgency of urination (principal)
CPT/HCPCS: 81001

== ENCOUNTER 2018-06-26 07:54 | Inpatient (IN) | payer MEDICAID, OTHER ==
[2018-06-26] MEDS: IPRATROPIUM 0.5MG/ALBUTEROL 2.5MG INH SOL UD 3ML (DUONEB)(J7620) NEB ×4 (08:37→20:00)
[2018-06-26] MEDS: ALBUTEROL SULFATE 2.5 MG/0.5 ML INH NEB SOLN INH (08:37)
[2018-06-26 09:02] LABS: BASO % 0.2 % (0.0-1.0); EOS # 0.1 10^3/uL (0.0-0.50); EOS % 0.8 % (0.0-3.0); HEMATOCRIT 38.9 % (36.0-47.0); IMMATURE GRANULOCYTE % 0.6 % (0-3.0); LYMPH # 0.3 10^3/uL (1.5-4.5); LYMPH % 2.3 % (24.0-44.0); MEAN CORPUSCULAR HEMOGLOBIN 30.2 pg (27.0-33.0); MEAN CORPUSCULAR HGB CONC 33.4 g/dl (32.0-36.5); MEAN CORPUSCULAR VOLUME 90.5 fl (80.0-96.0); MONO # 0.4 10^3/uL (0.0-0.8); MONO % 3.7 % (0.0-5.0); NEUTROPHILS # 10.7 10^3/uL (1.8-7.7); NEUTROPHILS % 92.4 % (36.0-66.0); PLATELET COUNT, AUTOMATED 229 10^3/uL (150-450); RED CELL DISTRIBUTION WIDTH 14.6 % (11.5-14.5); WHITE BLOOD COUNT 11.5 10^3/uL (4.0-10.0)
[2018-06-26] MEDS: methylPREDNISolone INJ 125 MG/2 ML VIAL (J2930) IV ×2 (09:06→16:47)
[2018-06-26 09:29] LABS: ALKALINE PHOSPHATASE 81 U/L (45-117); ALT/SGPT 14 U/L (12-78); ANION GAP 10 MEQ/L (8-16); AST/SGOT 9 U/L (7-37); BILIRUBIN,DIRECT 0.1 MG/DL (0.0-0.2); BILIRUBIN,TOTAL 0.3 MG/DL (0.2-1.0); BLOOD UREA NITROGEN 10 MG/DL (7-18); CALCIUM LEVEL 8.4 MG/DL (8.5-10.1); CARBON DIOXIDE LEVEL 21 MEQ/L (21-32); CHLORIDE LEVEL 105 MEQ/L (98-107); CK-MB VALUE MASS < 1.0 NG/ML (<3.6); CPK CREATINE PHOSPHOKINASE 53 U/L (26-192); CREATININE FOR GFR 0.81 MG/DL (0.55-1.30); GLOMERULAR FILTRATION RATE > 60.0 (>51); GLUCOSE, FASTING 197 MG/DL (70-100); MB/CK RELATIVE INDEX 1.88 (< OR =4); NT-PRO BNP 465 PG/ML (<125); POTASSIUM SERUM 3.6 MEQ/L (3.5-5.1); SODIUM LEVEL 136 MEQ/L (136-145); THYROXINE (T4) 7.2 UG/DL (4.5-12.0); TOTAL PROTEIN 7.3 GM/DL (6.4-8.2); TROPONIN I < 0.02 NG/ML (< 0.10)
[2018-06-26 09:31] LABS: POSITIVE DIFF POS FLAG
[2018-06-26 09:33] LABS: THYROID STIMULATING HORMONE 0.333 uIU/ML (0.358-3.740)
[2018-06-26 09:35] LABS: KETONE, URINE AUTO RFX NEGATIVE (NEGATIVE); LEUKOCYTE ESTERASE UR AUTO RFX NEGATIVE (NEGATIVE); NITRITE, URINE AUTO RFX NEGATIVE (NEGATIVE); RBC, URINE AUTO RFX 1 /HPF (0-3); SPECIFIC GRAVITY UR AUTO RFX 1.005 (1.002-1.035); SQUAM EPITHELIAL CELL UR AURFX 1 /HPF (0-6); WBC, URINE AUTO RFX 2 /HPF (0-3)
[2018-06-26 09:39] LABS: LACTIC ACID SEPSIS PROTOCOL 2.8 MMOL/L (0.4-2.0)
[2018-06-26 09:51] LABS: INFLUENZA A AMPLIFICATION NEGATIVE (NEGATIVE); INFLUENZA B AMPLIFICATION NEGATIVE (NEGATIVE)
[2018-06-26 09:54] LABS: ABG BASE EXCESS -1.6 (-2.0-2.0); ABG HCO3 21.7 MEQ/L (22.0-26.0); ABG O2 SATURATION 95.2 % (95.0-99.0); ABG PARTIAL PRESSURE CO2 32.8 mmHg (35.0-45.0); ABG PARTIAL PRESSURE O2 67.4 mmHg (75.0-100.0); ABG STANDARD HCO3 23.1 MEQ/L (22.0-26.0); ABG TOTAL CO2 22.7 MEQ/L (22.0-29.0); ABG pH (ARTERIAL) 7.439 UNITS (7.350-7.450)
[2018-06-26] MEDS ORDERED: ISOVUE-370 76% 100ML VIAL (Q9967) As Ordered (10:00)
[2018-06-26] MEDS: NS 1,000 ML IV ×3 (11:30→17:19)
[2018-06-26] MEDS: cefTRIAXone SOD 1 GM in D5W MINI-BAG PLUS 50 ML IV (11:35)
[2018-06-26] MEDS ORDERED: ONDANSETRON 4MG/2ML VIAL (J2405) IV (11:45)
[2018-06-26] MEDS ORDERED: ALBUTEROL SULFATE 2.5 MG/0.5 ML INH NEB SOLN INH (11:45)
[2018-06-26] MEDS ORDERED: CETIRIZINE (ZyrTEC) 10 MG TAB PO (12:00)
[2018-06-26] MEDS ORDERED: clonazePAM 1 MG TAB PO (12:00)
[2018-06-26] MEDS ORDERED: PROMETHAZINE 25 MG TAB PO (12:00)
[2018-06-26] MEDS: AZITHROMYCIN INJ 500 MG, VIAL MATE ADAPTER 1 EACH in D5W 250 ML IV (12:40)
[2018-06-26] MEDS: LevoFLOXacin 750 MG TABLET PO (14:25)
[2018-06-26] MEDS: clonazePAM 1 MG TAB PO ×2 (14:25→20:30)
[2018-06-26] MEDS: ENOXAPARIN 40 MG/0.4 ML SYRINGE (J1650) SC (14:25)
[2018-06-26] MEDS: ACETAMINOPHEN TAB 650MG DOSE (2X325MG) PO (16:46)
[2018-06-26] MEDS: SIMETHICONE 80 MG CHEW TAB PO ×2 (16:47→20:31)
[2018-06-26 19:18] LABS: LACTIC ACID SEPSIS PROTOCOL 2.9 MMOL/L (0.4-2.0)
[2018-06-26] MEDS ORDERED: PILL CRUSHER/CUTTER 1 EACH XX (20:30)
[2018-06-26] MEDS: QUEtiapine FUMARATE 100 MG TAB PO (20:32)
[2018-06-26] MEDS: ADVAIR HFA 115/21MCG INHALER INH (21:00)
[2018-06-26] MEDS: lamoTRIgine 100MG TAB PO (21:37)
[2018-06-26] MEDS: zolPIDEM TARTRATE 5 MG TAB PO (21:37)
[2018-06-27] MEDS: methylPREDNISolone INJ 125 MG/2 ML VIAL (J2930) IV ×4 (00:07→23:48)
[2018-06-27] MEDS: IPRATROPIUM 0.5MG/ALBUTEROL 2.5MG INH SOL UD 3ML (DUONEB)(J7620) NEB ×7 (04:00→23:29)
[2018-06-27] MEDS: LevoFLOXacin 750 MG TABLET PO (06:02)
[2018-06-27] MEDS: clonazePAM 1 MG TAB PO ×3 (06:02→21:29)
[2018-06-27 07:04] LABS: HEMATOCRIT 33.3 % (36.0-47.0); HEMOGLOBIN 11.1 g/dl (12.0-15.5); MEAN CORPUSCULAR HEMOGLOBIN 30.2 pg (27.0-33.0); MEAN CORPUSCULAR HGB CONC 33.3 g/dl (32.0-36.5); MEAN CORPUSCULAR VOLUME 90.5 fl (80.0-96.0); PLATELET COUNT, AUTOMATED 226 10^3/uL (150-450); RED BLOOD COUNT 3.68 10^6/uL (4.00-5.40); RED CELL DISTRIBUTION WIDTH 14.5 % (11.5-14.5)
[2018-06-27 07:29] LABS: ALBUMIN 2.6 GM/DL (3.2-5.2); ALBUMIN/GLOBULIN RATIO 0.65 (1.00-1.93); ALKALINE PHOSPHATASE 68 U/L (45-117); ALT/SGPT 12 U/L (12-78); ANION GAP 8 MEQ/L (8-16); AST/SGOT 7 U/L (7-37); BILIRUBIN,TOTAL 0.1 MG/DL (0.2-1.0); BLOOD UREA NITROGEN 10 MG/DL (7-18); CALCIUM LEVEL 8.3 MG/DL (8.5-10.1); CARBON DIOXIDE LEVEL 22 MEQ/L (21-32); CHLORIDE LEVEL 113 MEQ/L (98-107); CREATININE FOR GFR 0.56 MG/DL (0.55-1.30); GLOMERULAR FILTRATION RATE > 60.0 (>51); GLUCOSE, FASTING 178 MG/DL (70-100); POTASSIUM SERUM 3.8 MEQ/L (3.5-5.1); SODIUM LEVEL 143 MEQ/L (136-145); TOTAL PROTEIN 6.6 GM/DL (6.4-8.2)
[2018-06-27] MEDS: ADVAIR HFA 115/21MCG INHALER INH ×2 (07:55→21:00)
[2018-06-27 08:15] LABS: C REACTIVE PROTEIN QUANTITATIV 8.95 MG/DL (0.00-0.30)
[2018-06-27] MEDS: PANTOPRAZOLE 40MG TAB (PROTONIX) PO (08:53)
[2018-06-27] MEDS: ENOXAPARIN 40 MG/0.4 ML SYRINGE (J1650) SC (08:53)
[2018-06-27] MEDS: PARoxetine 10MG TABLET PO (08:53)
[2018-06-27] MEDS: LISINOPRIL 20 MG TAB PO (08:53)
[2018-06-27] MEDS: lamoTRIgine 100MG TAB PO ×2 (08:53→21:29)
[2018-06-27] MEDS: SIMETHICONE 80 MG CHEW TAB PO ×3 (08:53→21:00)
[2018-06-27] MEDS: QUEtiapine FUMARATE 100 MG TAB PO (21:30)
[2018-06-27] MEDS: zolPIDEM TARTRATE 5 MG TAB PO (21:30)
[2018-06-28] MEDS: IPRATROPIUM 0.5MG/ALBUTEROL 2.5MG INH SOL UD 3ML (DUONEB)(J7620) NEB ×3 (04:00→11:24)
[2018-06-28] MEDS: LevoFLOXacin 750 MG TABLET PO (05:26)
[2018-06-28] MEDS: clonazePAM 1 MG TAB PO (05:26)
[2018-06-28 06:02] LABS: HEMATOCRIT 31.9 % (36.0-47.0); HEMOGLOBIN 10.4 g/dl (12.0-15.5); MEAN CORPUSCULAR HEMOGLOBIN 30.1 pg (27.0-33.0); MEAN CORPUSCULAR HGB CONC 32.6 g/dl (32.0-36.5); MEAN CORPUSCULAR VOLUME 92.2 fl (80.0-96.0); PLATELET COUNT, AUTOMATED 257 10^3/uL (150-450); RED BLOOD COUNT 3.46 10^6/uL (4.00-5.40)
[2018-06-28 06:22] LABS: ALBUMIN 2.5 GM/DL (3.2-5.2); ALBUMIN/GLOBULIN RATIO 0.68 (1.00-1.93); ALKALINE PHOSPHATASE 62 U/L (45-117); ALT/SGPT 11 U/L (12-78); ANION GAP 9 MEQ/L (8-16); AST/SGOT 7 U/L (7-37); BILIRUBIN,TOTAL 0.1 MG/DL (0.2-1.0); BLOOD UREA NITROGEN 11 MG/DL (7-18); CALCIUM LEVEL 8.4 MG/DL (8.5-10.1); CARBON DIOXIDE LEVEL 23 MEQ/L (21-32); CHLORIDE LEVEL 112 MEQ/L (98-107); CREATININE FOR GFR 0.59 MG/DL (0.55-1.30); GLOMERULAR FILTRATION RATE > 60.0 (>51); GLUCOSE, FASTING 224 MG/DL (70-100); POTASSIUM SERUM 4.3 MEQ/L (3.5-5.1); SODIUM LEVEL 144 MEQ/L (136-145); TOTAL PROTEIN 6.2 GM/DL (6.4-8.2)
[2018-06-28] MEDS: ADVAIR HFA 115/21MCG INHALER INH (08:00)
[2018-06-28 08:15] LABS: C REACTIVE PROTEIN QUANTITATIV 2.22 MG/DL (0.00-0.30)
[2018-06-28] MEDS: ENOXAPARIN 40 MG/0.4 ML SYRINGE (J1650) SC (08:36)
[2018-06-28] MEDS: methylPREDNISolone INJ 125 MG/2 ML VIAL (J2930) IV (08:37)
[2018-06-28] MEDS: PANTOPRAZOLE 40MG TAB (PROTONIX) PO (08:37)
[2018-06-28] MEDS: SIMETHICONE 80 MG CHEW TAB PO (08:37)
[2018-06-28] MEDS: LISINOPRIL 20 MG TAB PO (08:37)
[2018-06-28] MEDS: PARoxetine 10MG TABLET PO (08:37)
[2018-06-28] MEDS: lamoTRIgine 100MG TAB PO (08:37)
== END 2018-06-28 12:00 | disposition home or self-care (01) | DRG 140 ==
LOC: M ED 07:54 → M ED INP 11:36 → M PCU 15:43
DX: J44.1 Chronic obstructive pulmonary disease with (acute) exacerbation (principal); J18.9 Pneumonia, unspecified organism; G35 Multiple sclerosis; F17.200 Nicotine dependence, unspecified, uncomplicated; F10.10 Alcohol abuse, uncomplicated; Z79.899 Other long term (current) drug therapy; Z88.2 Allergy status to sulfonamides; Z88.8 Allergy status to other drugs, medicaments and biological substances; F31.9 Bipolar disorder, unspecified; G40.909 Epilepsy, unspecified, not intractable, without status epilepticus

== ENCOUNTER 2018-07-08 10:07 | Emergency (ER) | payer MEDICAID ==
[2018-07-08] MEDS: FLUCONAZOLE 100 MG TAB PO (13:11)
[2018-07-08 13:14] LABS: CHLAMYDIA DNA AMPLIFICATION NEGATIVE (NEGATIVE); GC DNA AMPLIFICATION NEGATIVE (NEGATIVE)
== END 2018-07-08 13:14 | disposition home or self-care (01) ==
LOC: M ED 10:07
DX: N95.2 Postmenopausal atrophic vaginitis (principal); B37.3 Candidiasis of vulva and vagina; G35 Multiple sclerosis; J44.9 Chronic obstructive pulmonary disease, unspecified; E78.70 Disorder of bile acid and cholesterol metabolism, unspecified; H46.9 Unspecified optic neuritis; F17.210 Nicotine dependence, cigarettes, uncomplicated; Z87.42 Personal history of other diseases of the female genital tract; Z90.49 Acquired absence of other specified parts of digestive tract; Z88.8 Allergy status to other drugs, medicaments and biological substances; Z88.2 Allergy status to sulfonamides; Z79.899 Other long term (current) drug therapy
CPT/HCPCS: 87210

== ENCOUNTER → 2018-07-27 | Outpatient (CLI) | payer MEDICAID ==
[2018-07-27] MEDS: methylPREDNISolone 1,000 MG, VIAL MATE ADAPTER 1 EACH in D5W 250 ML IV (17:21)
== END ==
LOC: M INFU 16:37
DX: H46.9 Unspecified optic neuritis (principal)
CPT/HCPCS: J2930

== ENCOUNTER 2018-07-28 15:39 | Outpatient (CLI) | payer MEDICAID ==
[2018-07-28] MEDS: methylPREDNISolone 1,000 MG, VIAL MATE ADAPTER 1 EACH in D5W 250 ML IV (15:54)
== END 2018-07-28 17:00 | disposition home or self-care (01) ==
LOC: M INFU 15:39
DX: H46.9 Unspecified optic neuritis (principal)
CPT/HCPCS: J2930

== ENCOUNTER 2018-07-31 09:46 | Emergency (ER) | payer MEDICAID ==
[2018-07-31] MEDS: ALBUTEROL SULFATE 2.5 MG/0.5 ML INH NEB SOLN NEB (10:32)
== END 2018-07-31 11:46 | disposition home or self-care (01) ==
LOC: M ED 09:46
DX: J44.1 Chronic obstructive pulmonary disease with (acute) exacerbation (principal); I10 Essential (primary) hypertension; G35 Multiple sclerosis; E78.00 Pure hypercholesterolemia, unspecified; K21.9 Gastro-esophageal reflux disease without esophagitis; H46.9 Unspecified optic neuritis; F41.9 Anxiety disorder, unspecified; F43.10 Post-traumatic stress disorder, unspecified; F31.9 Bipolar disorder, unspecified; F17.200 Nicotine dependence, unspecified, uncomplicated; Z88.8 Allergy status to other drugs, medicaments and biological substances; Z88.2 Allergy status to sulfonamides; Z88.1 Allergy status to other antibiotic agents
CPT/HCPCS: 71046

== ENCOUNTER 2018-08-14 02:57 | Emergency (ER) | payer OTHER, MEDICAID ==
[2018-08-14 03:27] LABS: HEMATOCRIT 41.3 % (36.0-47.0); HEMOGLOBIN 13.4 g/dl (12.0-15.5); MEAN CORPUSCULAR HEMOGLOBIN 30.5 pg (27.0-33.0); MEAN CORPUSCULAR HGB CONC 32.4 g/dl (32.0-36.5); MEAN CORPUSCULAR VOLUME 94.1 fl (80.0-96.0); PLATELET COUNT, AUTOMATED 348 10^3/uL (150-450); RED BLOOD COUNT 4.39 10^6/uL (4.00-5.40); RED CELL DISTRIBUTION WIDTH 15.7 % (11.5-14.5)
[2018-08-14 03:33] LABS: ADD MANUAL DIFFER YES; DIFF SLIDE NUMBER 85; POSITIVE DIFF POS FLAG; WHITE BLOOD COUNT 11.9 10^3/uL (4.0-10.0)
[2018-08-14 03:49] LABS: EOSINOPHILS 3 % (0-5); LYMPHOCYTES 66 % (16-52); MONOCYTES 8 % (0-8); NEUTROPHILS 23 % (35-75); PLATELET ESTIMATE NORMAL (NORMAL)
[2018-08-14 03:50] LABS: ANION GAP 8 MEQ/L (8-16); BLOOD UREA NITROGEN 14 MG/DL (7-18); CALCIUM LEVEL 8.1 MG/DL (8.5-10.1); CARBON DIOXIDE LEVEL 26 MEQ/L (21-32); CHLORIDE LEVEL 105 MEQ/L (98-107); CK-MB VALUE MASS < 1.0 NG/ML (<3.6); CPK CREATINE PHOSPHOKINASE 21 U/L (26-192); CREATININE FOR GFR 0.66 MG/DL (0.55-1.30); GLOMERULAR FILTRATION RATE > 60.0 (>51); GLUCOSE, FASTING 138 MG/DL (70-100); MB/CK RELATIVE INDEX 4.76 (< OR =4); POTASSIUM SERUM 3.5 MEQ/L (3.5-5.1); SODIUM LEVEL 139 MEQ/L (136-145); TROPONIN I < 0.02 NG/ML (< 0.10)
[2018-08-14] MEDS: IPRATROPIUM 0.5MG/ALBUTEROL 2.5MG INH SOL UD 3ML (DUONEB)(J7620) NEB (03:53)
== END 2018-08-14 04:58 | disposition home or self-care (01) ==
LOC: M ED 02:57
DX: J44.9 Chronic obstructive pulmonary disease, unspecified (principal); R06.02 Shortness of breath; F17.210 Nicotine dependence, cigarettes, uncomplicated; Z88.8 Allergy status to other drugs, medicaments and biological substances; Z88.3 Allergy status to other anti-infective agents; Z88.2 Allergy status to sulfonamides; Z79.899 Other long term (current) drug therapy; Z79.51 Long term (current) use of inhaled steroids
CPT/HCPCS: 71045

== ENCOUNTER 2018-08-31 07:22 | Emergency (ER) | payer MEDICAID, OTHER ==
[2018-08-31] MEDS: predniSONE 20 MG TAB PO (08:03)
[2018-08-31] MEDS: IPRATROPIUM 0.5MG/ALBUTEROL 2.5MG INH SOL UD 3ML (DUONEB)(J7620) NEB ×3 (08:05→08:40)
[2018-08-31 08:47] LABS: INFLUENZA A AMPLIFICATION NEGATIVE (NEGATIVE); INFLUENZA B AMPLIFICATION NEGATIVE (NEGATIVE)
== END 2018-08-31 09:42 | disposition home or self-care (01) ==
LOC: M ED 07:22
DX: J44.1 Chronic obstructive pulmonary disease with (acute) exacerbation (principal); J06.9 Acute upper respiratory infection, unspecified; I10 Essential (primary) hypertension; E78.5 Hyperlipidemia, unspecified; Z72.0 Tobacco use; Z79.899 Other long term (current) drug therapy; Z88.2 Allergy status to sulfonamides; Z88.6 Allergy status to analgesic agent; Z88.8 Allergy status to other drugs, medicaments and biological substances
CPT/HCPCS: 71046

== ENCOUNTER 2018-09-27 09:28 | Emergency (ER) | payer MEDICAID ==
[2018-09-27] MEDS: PERCOCET 5MG/325MG TAB PO (11:05)
== END 2018-09-27 11:25 | disposition home or self-care (01) ==
LOC: M ED 09:28
DX: S70.02XA Contusion of left hip, initial encounter (principal); S80.02XA Contusion of left knee, initial encounter; S40.012A Contusion of left shoulder, initial encounter; W01.0XXA Fall on same level from slipping, tripping and stumbling without subsequent striking against object, initial encounter; Y92.019 Unspecified place in single-family (private) house as the place of occurrence of the external cause
CPT/HCPCS: 73030

== ENCOUNTER 2018-10-10 10:24 | Emergency (ER) | payer MEDICAID | END 2018-10-10 11:17 | disposition home or self-care (01) | LOC: M ED 10:24 | DX: L03.114 Cellulitis of left upper limb (principal); J45.909 Unspecified asthma, uncomplicated; G35 Multiple sclerosis; Z72.0 Tobacco use; Z79.899 Other long term (current) drug therapy; Z88.2 Allergy status to sulfonamides; Z88.6 Allergy status to analgesic agent; Z88.8 Allergy status to other drugs, medicaments and biological substances | CPT/HCPCS: 99282 ==

== ENCOUNTER 2018-10-13 01:54 | Emergency (ER) | payer OTHER, MEDICAID | END 2018-10-13 02:52 | disposition home or self-care (01) | LOC: M ED 01:54 | DX: L03.113 Cellulitis of right upper limb (principal); J44.9 Chronic obstructive pulmonary disease, unspecified; F31.9 Bipolar disorder, unspecified | CPT/HCPCS: 99283 ==

== ENCOUNTER 2018-11-19 10:01 | Emergency (ER) | payer OTHER, MEDICAID ==
[~2018-11-19] VITALS: Ht 152.4 cm; Wt 91.3 kg
[~2018-11-19 10:01] MED LIST changes: +/ESOM40CA OR; +/LAMO15TA PO; +/LAMO20TA OR; +/MOXI40TA PO; +ACET30TAB PO; +ADV250INH INH; +ALBU0.63 IN; +ALBU17IN INH; +ALBU83IN INH; +AMOX875T PO; +ATOR1TAB21 PO; +AUGM875T28 PO; +AZIT-12 PO; +AZIT500T2 PO; +Advair; +BACITAB PO; +BENZ200C70 PO; +BIAX500T PO; +BREO1INH INH; +BREO1INH3 INH; +BUSP15TA47 PO; +CEFD1CAP8 PO; +CETI10TA PO; +CHERSYP3 PO; +CLIN150C14 PO; +CLON0.5T8 PO; +CLON1TAB8 PO; +COMBAER6 INH; +CYCL10TA PO; +DEPA500T2 PO; +DOXY-350 PO; +DOXY100C37; +DRIS50003 PO; +ESOM1CAP5; +ESZO1TAB6; +FLON1SPR; +FOLI1TAB11 PO; +GEMF600T5 PO; +GUAI1TAB PO; +HYDR50TA70 PO; +HYDRO50TAB PO; +HYOS1TAB SL; +IBUP80TA PO; +INCR1INH IN; +INCR1INH INH; +INVE234I IM; +K-TA1TAB PO; +KEFL500C17 PO; +KLON0.5T; +KLON1TAB; +KLON1TAB PO; +LAMI100T PO; +LAMI1TAB8 PO; +LAMI1TAB9 PO; +LAMI25TA OR; +LAMO150T2; +LAMO150T2 PO; +LEVA1TAB2 PO; +LEVA750T7 PO; +LEVO500T3 PO; +LIPI10TA PO; +LISI-538 PO; +LISI20TA5 OR; +LUNE2TAB23 PO; +MACR100C43 PO; +MI-A80CH; +MICR10CA PO; +MIRA33504 PO; +MUCI600T37 PO; +NEBUMIS2 XX; +NEOM1SUS13; +NEXI40CA PO; +NICO14DI20 TD; +NICO2GUM62 PO; +NICO4GUM2 PO; +NICO4GUM31 PO; +NORC1TAB4 PO; +NORCO,; +NORCOTAB PO; +NORT25CA2 PO; +OMEP20CA3 PO; +OSCA200T PO; +OXAZ30CA2 PO; +OXYC1TAB23 PO; +PANT40TA3 PO; +PARO15TA; +PARO25TAB OR; +PAXI20TA29 PO; +PAXI20TA3 PO; +PAXI30TA11 PO; +PAXI30TA2 PO; +PAXI40TA10 PO; +PAXIL PO; +PERCOCET PO; +PRED10TA2 PO; +PRED20TA; +PRED20TA PO; +PRED50TA PO; +PROB1TAB PO; -PROHANCE 279.3MG/ML 15ML VIAL (A9576) As Ordered; -PROHANCE 279.3MG/ML 5ML VIAL (A9576) As Ordered; +PROM12.56 PO; +QUET1TAB10 PO; +QUET5TAB PO; +RANI300T PO; +REFR0.5D8 OU; +REGL5TAB2 PO; +RISP3TAB20 PO; +SERO1TAB2; +SERO1TAB2 PO; +SERO200T PO; +SERO200T2 PO; +SERO300T20 PO; +SERO400T OR; +SERO400T PO; +SIME80TA PO; +SPIR1CAP INH; +TEMA15CA2 PO; +TEMA7.5C PO; +TESS100C PO; +THIA100TA PO; +TOPA1TAB PO; +TOPA50TA8 PO; +TRAZ-160 PO; +TYLE325T5 PO; +TYLE500T78 PO; +Thiamine Hcl PO; +VANC1SUS PO; +VANC250C2 PO; +VENTAER; +VENTAER IN; +VITA50005; +VITMTA PO; +ZOFR4TAB16 PO; +[UNRECOGNIZED DRUG - OTHER]; +spiriva INH
--- NOTE | 2018-11-19 10:34 | REP ---
Chest two views HISTORY: Cough Comparison: 08/31/2018 The lungs are clear. The heart is normal in size. The pulmonary vasculature is normal in appearance. The bony structure is intact. IMPRESSION: No acute disease. Electronically Signed by Fernando Hutchins MD 11/19/2018 10:26 A
[2018-11-19] MEDS ORDERED: IPRATROPIUM 0.5MG/ALBUTEROL 2.5MG INH SOL UD 3ML (DUONEB)(J7620) NEB ONE (11:00)
[2018-11-19] MEDS ORDERED: methylPREDNISolone INJ 125 MG/2 ML VIAL (J2930) IM ONE (11:15)
[2018-11-19] MEDS ORDERED: PRED20TA PO (11:24)
[2018-11-19] MEDS ORDERED: IPRA0.00 NEB (11:24)
[2018-11-19 11:32] VITALS: BP 133/71
== END 2018-11-19 11:34 | disposition home or self-care (01) ==
LOC: M ED 10:01
DX: J44.1 Chronic obstructive pulmonary disease with (acute) exacerbation (principal); I10 Essential (primary) hypertension; R56.9 Unspecified convulsions; G43.909 Migraine, unspecified, not intractable, without status migrainosus; F31.9 Bipolar disorder, unspecified; F43.10 Post-traumatic stress disorder, unspecified; Z86.19 Personal history of other infectious and parasitic diseases; H46.9 Unspecified optic neuritis; Z72.0 Tobacco use; Z79.899 Other long term (current) drug therapy; Z88.2 Allergy status to sulfonamides; Z88.6 Allergy status to analgesic agent; Z88.8 Allergy status to other drugs, medicaments and biological substances
CPT/HCPCS: 71046; 96372; 99283; J2930

== ENCOUNTER 2018-12-25 00:28 | Emergency (ER) | payer OTHER ==
[~2018-12-25] VITALS: Ht 152.4 cm; Wt 90.9 kg
[~2018-12-25 00:28] MED LIST changes: +IPRA0.00 NEB
[2018-12-25] MEDS ORDERED: NS 1,000 ML IV ONE (01:00)
[2018-12-25] MEDS ORDERED: ONDANSETRON 4MG/2ML VIAL (J2405) IV ONE (01:00)
[2018-12-25] MEDS ORDERED: MORPHINE 2 MG/ML 1ML SYRINGE (J2270) IV PRN (01:00)
[2018-12-25 01:37] LABS: BASO # 0.1 10^3/uL (0.0-0.2); BASO % 1.1 % (0.0-1.0); EOS # 0.2 10^3/uL (0.0-0.50); EOS % 2.1 % (0.0-3.0); HEMOGLOBIN 13.5 g/dl (12.0-15.5); LYMPH # 2.8 10^3/uL (1.5-4.5); LYMPH % 37.4 % (24.0-44.0); MEAN CORPUSCULAR HEMOGLOBIN 30.5 pg (27.0-33.0); MEAN CORPUSCULAR HGB CONC 32.9 g/dl (32.0-36.5); MEAN CORPUSCULAR VOLUME 92.6 fl (80.0-96.0); MONO # 0.7 10^3/uL (0.0-0.8); MONO % 9.1 % (0.0-5.0); NEUTROPHILS # 3.7 10^3/uL (1.8-7.7); NEUTROPHILS % 49.8 % (36.0-66.0); PLATELET COUNT, AUTOMATED 277 10^3/uL (150-450); RED BLOOD COUNT 4.43 10^6/uL (4.00-5.40); WHITE BLOOD COUNT 7.5 10^3/uL (4.0-10.0)
[2018-12-25 02:06] LABS: ALBUMIN 3.4 GM/DL (3.2-5.2); ALT/SGPT 14 U/L (12-78); BILIRUBIN,DIRECT < 0.1 MG/DL (0.0-0.2); BILIRUBIN,TOTAL 0.2 MG/DL (0.2-1.0); BLOOD UREA NITROGEN 11 MG/DL (7-18); CALCIUM LEVEL 8.4 MG/DL (8.5-10.1); CARBON DIOXIDE LEVEL 25 MEQ/L (21-32); CHLORIDE LEVEL 107 MEQ/L (98-107); CREATININE FOR GFR 0.54 MG/DL (0.55-1.30); GLOMERULAR FILTRATION RATE > 60.0 (>51); GLUCOSE, FASTING 116 MG/DL (70-100); LIPASE 134 U/L (73-393); POTASSIUM SERUM 4.3 MEQ/L (3.5-5.1); SODIUM LEVEL 139 MEQ/L (136-145); TOTAL PROTEIN 7.1 GM/DL (6.4-8.2)
--- NOTE | 2018-12-25 03:14 | REPVR ---
EXAM: CT Abdomen and Pelvis Without Contrast EXAM DATE/TIME: 12/25/2018 2:05 AM CLINICAL HISTORY: 53 years old, female; Pain; Abdominal pain; Flank; Right; Additional info: Right flank pain, hematuria TECHNIQUE: Axial computed tomography images of the abdomen and pelvis without contrast. All CT scans at this facility use at least one of these dose optimization techniques: automated exposure control; mA and/or kV adjustment per patient size (includes targeted exams where dose is matched to clinical indication); or iterative reconstruction. Coronal and sagittal reformatted images were created and reviewed. COMPARISON: CT ABD PELVIS WITH CONTRAST 09/27/2016 11:43 AM FINDINGS: Lower thorax: Minimal bibasilar patchy ground glass infiltrates and slight interstitial prominence. There is minimal fibro-atelectatic change in the right middle lobe. ABDOMEN: Liver: Normal. No mass. Gallbladder and bile ducts: Status post cholecystectomy. Pancreas: Normal. No ductal dilation. Spleen: Normal. No splenomegaly. Adrenals: Normal. No mass. Kidneys and ureters: Normal. No hydronephrosis. Stomach and bowel: There is colonic diverticulosis without evidence of diverticulitis. Appendix: There are no changes of appendicitis. A normal appendix is not seen. PELVIS: Bladder: Unremarkable as visualized. Reproductive: Unremarkable as visualized. ABDOMEN and PELVIS: Intraperitoneal space: Normal. No free air. No significant fluid collection. Bones/joints: No acute fracture. No dislocation. Soft tissues: Unremarkable. Vasculature: Normal. No abdominal aortic aneurysm. Lymph nodes: Normal. No enlarged lymph nodes. IMPRESSION: 1. There has been little change from 09/27/2016. 2. Minimal bibasilar patchy ground glass infiltrates which are new since the prior study. Interstitial prominence is similar. 3. Status post cholecystectomy. 4. Colonic diverticulosis without diverticulitis. Electronically signed by: Maverick Slater On 12/25/2018 03:14:04 AM
[2018-12-25] MEDS ORDERED: ROBA500T PO (03:25)
[2018-12-25 03:30] VITALS: BP 118/74
--- NOTE | 2018-12-25 08:06 | ECGEPIP ---
Stationary ECG Study [facility] - ED Test Date: 2018-12-25 Pat Name: ANDRES JAMA Department: Room: - Gender: F Aurist: russell : 1965 Requested By: SUZY Milton PA-C Order Number: [id number] Reading MD: Kwesi Dyson Measurements Intervals [place] Rate: 110 P: 50 [place]: 146 QRS: 38 QRSD: 92 T: 63 QT: 308 QTc: 417 Interpretive Statements SINUS TACHYCARDIA RATE CHANGE COMPARED TO 09/27/18 Electronically Signed On 12-25-2018 8:06:26 EST by Kwesi Dyson
--- NOTE | 2018-12-28 19:10 | ED PDOC ---
Post-Departure Follow-Up kraig gould faxed formal report of ct abd/p for fu Rosetta Yeung MD Dec 28, 2018 19:10
== END 2018-12-25 03:38 | disposition home or self-care (01) ==
LOC: M ED 00:28
DX: M54.9 Dorsalgia, unspecified (principal); R11.0 Nausea; R00.0 Tachycardia, unspecified; I10 Essential (primary) hypertension; J44.9 Chronic obstructive pulmonary disease, unspecified; Z87.442 Personal history of urinary calculi; F17.210 Nicotine dependence, cigarettes, uncomplicated; Z88.1 Allergy status to other antibiotic agents; Z88.2 Allergy status to sulfonamides; Z88.8 Allergy status to other drugs, medicaments and biological substances; Z79.899 Other long term (current) drug therapy; Z79.51 Long term (current) use of inhaled steroids
CPT/HCPCS: 74176; 80048; 80076; 81001; 83690; 85025; 93005; 96374; 96375; 99284; J2270; J2405

== ENCOUNTER 2019-02-02 21:34 | Inpatient (IN) | payer MEDICAID, OTHER ==
[~2019-02-02] VITALS: Ht 149.9 cm; Wt 88.4 kg
[~2019-02-02 21:34] MED LIST changes: -/ESOM40CA OR; -/LAMO15TA PO; -/LAMO20TA OR; -/MOXI40TA PO; +ACET-716 PO; -ACET30TAB PO; +AVEL1TAB2 PO; +HYDR-3715 PO; +HYDR-4274 PO; -HYDRO50TAB PO; +LAMI1TAB9 OR; +NEXI1CAP3 OR; -NORCOTAB PO; +ROBA500T PO
[2019-02-02] MEDS ORDERED: NS 1,000 ML IV ONE (22:00)
[2019-02-02 22:04] LABS: BASO # 0.1 10^3/uL (0.0-0.2); BASO % 0.9 % (0.0-1.0); EOS # 0.2 10^3/uL (0.0-0.50); LYMPH % 29.8 % (24.0-44.0); MEAN CORPUSCULAR HEMOGLOBIN 30.4 pg (27.0-33.0); MEAN CORPUSCULAR HGB CONC 33.3 g/dl (32.0-36.5); MEAN CORPUSCULAR VOLUME 91.1 fl (80.0-96.0); MONO # 0.9 10^3/uL (0.0-0.8); MONO % 8.9 % (0.0-5.0); NEUTROPHILS # 5.8 10^3/uL (1.8-7.7); NEUTROPHILS % 58.1 % (36.0-66.0); PLATELET COUNT, AUTOMATED 280 10^3/uL (150-450); RED BLOOD COUNT 4.61 10^6/uL (4.00-5.40); WHITE BLOOD COUNT 9.9 10^3/uL (4.0-10.0)
[2019-02-02 22:08] LABS: OSMOLALITY SERUM 322 MOSM/KG (275-295)
[2019-02-02 22:11] LABS: ABG HCO3 25.1 MEQ/L (22.0-26.0); ABG O2 SATURATION 91.1 % (95.0-99.0); ABG PARTIAL PRESSURE CO2 51.9 mmHg (35.0-45.0); ABG PARTIAL PRESSURE O2 63.6 mmHg (75.0-100.0); ABG STANDARD HCO3 22.7 MEQ/L (22.0-26.0); ABG TOTAL CO2 26.7 MEQ/L (22.0-29.0); ABG pH (ARTERIAL) 7.302 UNITS (7.350-7.450)
[2019-02-02] MEDS ORDERED: NALOXONE INJ 2 MG/2 ML SYRINGE (J2310) IV STA (22:25)
--- NOTE | 2019-02-02 22:31 | REP ---
Clinical: Drug overdose. Comparison: 11/19/2018. Findings: Mediastinum and cardiac silhouette are stable. Lung ventura demonstrate bibasilar opacities consistent with multifocal infiltrate/atelectasis. Very small small right effusion cannot be excluded. No pneumothorax. Skeletal structures intact. Impression: Multi focal infiltrate/atelectasis involving the lower lobes with possible small right pleural effusion. Electronically Signed by Scooter Leija MD 02/02/2019 10:22 P
[2019-02-02 22:34] LABS: ACETAMINOPHEN LEVEL < 2.0 UG/ML (10.0-30.0); ALBUMIN 3.7 GM/DL (3.2-5.2); ALT/SGPT 19 U/L (12-78); BILIRUBIN,DIRECT < 0.1 MG/DL (0.0-0.2); BILIRUBIN,TOTAL 0.2 MG/DL (0.2-1.0); BLOOD UREA NITROGEN 8 MG/DL (7-18); CALCIUM LEVEL 8.2 MG/DL (8.5-10.1); CARBON DIOXIDE LEVEL 22 MEQ/L (21-32); CHLORIDE LEVEL 103 MEQ/L (98-107); CPK CREATINE PHOSPHOKINASE 53 U/L (26-192); CREATININE FOR GFR 0.47 MG/DL (0.55-1.30); ETHYL ALCOHOL (ETHANOL) 0.126 % (0.000-0.010); GLOMERULAR FILTRATION RATE > 60.0 (>51); GLUCOSE, FASTING 129 MG/DL (70-100); POTASSIUM SERUM 3.8 MEQ/L (3.5-5.1); SALICYLATE LEVEL 5.5 MG/DL (5.0-30.0); SODIUM LEVEL 136 MEQ/L (136-145); TOTAL PROTEIN 7.1 GM/DL (6.4-8.2)
[2019-02-02] MEDS ORDERED: SUCCINYLCHOLINE INJ 200 MG/10 ML VIAL (J0330) IV ONE (23:00)
[2019-02-02] MEDS ORDERED: ETOMIDATE INJ 20MG/10ML VIAL IV ONE (23:00)
[2019-02-02] MEDS ORDERED: PROPOFOL 1,000 MG in APPROPRIATE DILUENT 1 EA IV SCH (23:00)
[2019-02-02 23:27] LABS: AMPHETAMINES LEVEL URINE NEGATIVE (NEGATIVE); BARBITURATES URINE NEGATIVE (NEGATIVE); BENZODIAZEPINES URINE NEGATIVE (NEGATIVE); CANNABINOIDS URINE NEGATIVE (NEGATIVE); COCAINE METABOLITE URINE NEGATIVE (NEGATIVE); METHADONE URINE NEGATIVE (NEGATIVE); OPIATES URINE NEGATIVE (NEGATIVE); PHENCYCLIDINE URINE NEGATIVE (NEGATIVE)
--- NOTE | 2019-02-02 23:36 | REP ---
Clinical: Status post intubation. Comparison: 02/02/2019 and 10:01 p.m. Findings: Endotracheal tube 1.4 cm above the titi. Mediastinum and cardiac silhouette are stable. Bibasilar opacities consistent with atelectasis/ multifocal pneumonia and correlation is recommended. Small layering right effusion cannot be excluded. No pneumothorax. Skeletal structures intact. Impression: 1. Endotracheal tube 1.4 cm above the titi. 2. Bibasilar opacities suggesting atelectasis/multifocal infiltrates and possible small right pleural effusion. Electronically Signed by Scooter Leija MD 02/02/2019 11:28 P
[2019-02-02] MEDS ORDERED: MORPHINE 4 MG/ML 1ML VIAL/SYRINGE (J2270) IV PRN (23:45)
[2019-02-03] VITALS (23 sets, daily range): BP systolic 101–141; BP diastolic 58–85; O2SAT 94
[2019-02-03] MEDS ORDERED: ADV500INH INH
[2019-02-03] MEDS ORDERED: CHARCOAL ACTIVATED LIQUID 25 GM/120 ML BTL PO ONE
--- NOTE | 2019-02-03 00:07 | HPE ---
DATE OF ADMISSION: 02/02/2019 Critical care time was 1 hour. This excludes all procedures. I was called to the patient's bedside for somnolence. The patient was fairly unresponsive had no significant pupil reflex as her pupils were pinpoint. Occasionally would move an arm but not necessarily purposefully. Therefore it was felt that she could not protect her airway. Emergency room (ER) intubated the patient. Apparently the patient had presented to the emergency room earlier stating that she was intoxicated and took too much Seroquel. She also has access to benzodiazepines in the form of clonazepam, Lunesta, Lamictal, Robaxin [place]. She did not respond to Narcan that was prescribed in the emergency room. There was no one to provide any past medical history, past medical history obtained from the chart suggests: 1. A probable underlying chronic obstructive pulmonary disease (COPD). She does smell of smoke and has nicotine stained fingers. 2. Obesity. 3. History of back pain. 4. Reported history of alcohol withdrawal seizures. 5. Nicotine dependence. 6. Reported history of multiple sclerosis. I cannot confirm or deny this. 7. She has a history of bipolar disorder. 8. Depression. 9. Agoraphobia. 10. History of post-traumatic stress disorder. 11. Migraine headaches. PAST SURGICAL HISTORY: Cholecystectomy. SOCIAL HISTORY: Likely smokes given her presentation. FAMILY HISTORY: According to the chart mother with breast cancer. Father with hypertension, history of a myocardial infarction at age 62. REVIEW OF SYSTEMS: Review of systems is unobtainable. HOME MEDICATIONS: Home medications include: - Ventolin inhaled every 4 hours as needed - Combivent DuoNeb as needed - Advair, unknown dose - clonazepam 1 mg by mouth three times a day - omeprazole no known dose - Lunesta 2 mg by mouth at bedtime - Mucinex 600 mg twice a day - Lamictal 150 mg twice a day - lisinopril 20 mg by mouth daily - Robaxin 2 mg 2 tablets by mouth every 6 hours - [place], unknown dose - Paxil 30 mg by mouth daily - prednisone reportedly 60 mg by mouth daily - quetiapine 300 mg by mouth at bedtime - simethicone 80 mg by mouth three times a day ALLERGIES: UNKNOWN. Past chart suggests FLAGYL, NAPROXEN and SULFA DRUGS. No other history is obtainable. PHYSICAL EXAMINATION: Temperature is 97.6, pulse is 136, respiratory rate is 16, blood pressure is 120/61 with a mean arterial pressure 80, oxygen saturation is 95% on 0.65. General: Sedated, unable to respond to commands. Does not appropriately respond to tactile stimuli. She has no response to glabellar tap although she occasionally moves her arms. She has no evidence of seizure activity. HEENT: Sclerae are clear. Pupils are pinpoint and difficult to assess reactivity. Mucous membranes are moist. Airway is Mallampati four without any tongue lesions. Neck is supple. Neck circumference is large with no elevated jugular venous pulse (JVP) and normal carotid upstroke without bruits. LYMPH: No cervical, supraclavicular or axillary adenopathy. Cardiac: Distant S1, S2 without audible murmur, rub or gallop. No elevated JVP. No peripheral edema. Pulmonary: Decreased breath sounds throughout. No rales, rhonchi or wheezes. No dullness to percussion. She is using accessory muscles to attempt to breathe, especially in exhalation phase. There is no dullness to percussion. Abdomen is obese, soft, nontender, nondistended. No hepatosplenomegaly. No masses or hernia. Extremities: No cyanosis, clubbing or edema but she does have nicotine stained fingers. Skin: No rashes, jaundice or bruising. Neurological: No myoclonus. Deep tendon reflexes (DTRs) are hypo reflexive at patella bilaterally. There is no evidence of rigidity. There is no evidence of seizure activity. Pupils are pinpoint. Oculocephalic is abnormal. Corneals are present. LABORATORIES: Laboratory evaluation shows a sodium 136, potassium 3.8, chloride 103, bicarbonate of 22, BUN of 8 with a creatinine 0.47 with a glucose of 129. Measured osmolality is 3322 with a lactic acid of 2.3, calcium of 8.2, total bilirubin of 0.2. Arterial blood gas shows a pH of 7.30, pCO2 of 52, pAO2 of 64. Apparently this arterial blood gas was obtained when she was slightly more awake. A white blood cell count is 9.9 with a hemoglobin of 14.0. Hematocrit of 42 and platelet count of 280. Chest x-ray showed endotracheal tube in place in the trachea. There is some widening of the mediastinum. It may be positioning of the x-ray. There is definite atelectasis and some blunting of the costophrenic angles bilaterally. No evidence of pneumothorax hypopenetrated film. Electrocardiogram (EKG) shows a sinus tachycardia with a heart rate of approximately 130. No acute ST elevation. There is an interventricular conduction delay with a leftward axis and QTc is 406 milliseconds. 1. Respiratory failure secondary to intoxication and probable drug overdose with metabolic toxic encephalopathy. Will continue on mechanical ventilation. The patient was unable to protect her airway. She had inadequate ventilation. Was using accessory muscles to breathe therefore it was safest to perform intubation. Will continue on mechanical ventilation and intubation until tomorrow morning. Will assess further readiness for extubation. 2. Lactic acidosis likely secondary to work of breathing using forced exhalation. She has no evidence of sepsis at this point in time, blood pressure is more than adequate. White count is normal. There are no signs of infection elsewhere. Will continue to monitor for signs of sepsis. However, lactic acidosis likely secondary to work of breathing. 3. Obesity. Sonorous airway likely underlying obstructive sleep apnea. 4. Nicotine dependence. 5. Alcohol dependence with history of alcohol withdrawal seizures. Will consider placing on Serax 6. Reported history of chronic obstructive pulmonary disease (COPD). Will continue DuoNebs on inhaled therapy. 7. Deep vein thrombosis (DVT) prophylaxis with Lovenox. 8. Gastrointestinal (GI) prophylaxis with Protonix. The patient remains critically ill at risk for seizure activity. Continue to monitor for signs and symptoms of other toxicities.
[2019-02-03] MEDS ORDERED: IPRA0.00 INH (00:09)
[2019-02-03] MEDS ORDERED: VENTAER INH (00:09)
[2019-02-03] MEDS ORDERED: NEXI40CA PO (00:09)
[2019-02-03] MEDS ORDERED: CETI10TA PO (00:11)
[2019-02-03] MEDS: MIDAZOLAM INJ 2 MG/2 ML VIAL (J2250) IV PRN ×2 (01:12→06:12)
[2019-02-03] MEDS: PROPOFOL 1,000 MG in APPROPRIATE DILUENT 1 EA IV SCH ×2 (01:55→06:12)
[2019-02-03 04:47] LABS: HEMATOCRIT 40.8 % (36.0-47.0); HEMOGLOBIN 13.4 g/dl (12.0-15.5); MEAN CORPUSCULAR HEMOGLOBIN 30.4 pg (27.0-33.0); MEAN CORPUSCULAR HGB CONC 32.8 g/dl (32.0-36.5); MEAN CORPUSCULAR VOLUME 92.5 fl (80.0-96.0); PLATELET COUNT, AUTOMATED 261 10^3/uL (150-450); RED BLOOD COUNT 4.41 10^6/uL (4.00-5.40); WHITE BLOOD COUNT 14.6 10^3/uL (4.0-10.0)
[2019-02-03 05:11] LABS: ALBUMIN 3.3 GM/DL (3.2-5.2); ALT/SGPT 16 U/L (12-78); BILIRUBIN,TOTAL 0.3 MG/DL (0.2-1.0); BLOOD UREA NITROGEN 7 MG/DL (7-18); CARBON DIOXIDE LEVEL 24 MEQ/L (21-32); CHLORIDE LEVEL 108 MEQ/L (98-107); CREATININE FOR GFR 0.51 MG/DL (0.55-1.30); GLOMERULAR FILTRATION RATE > 60.0 (>51); GLUCOSE, FASTING 129 MG/DL (70-100); POTASSIUM SERUM 3.4 MEQ/L (3.5-5.1); SODIUM LEVEL 140 MEQ/L (136-145); TOTAL PROTEIN 6.6 GM/DL (6.4-8.2)
[2019-02-03 05:41] LABS: ABG BASE EXCESS -3.4 (-2.0-2.0); ABG HCO3 21.1 MEQ/L (22.0-26.0); ABG O2 SATURATION 95.9 % (95.0-99.0); ABG PARTIAL PRESSURE CO2 36.3 mmHg (35.0-45.0); ABG PARTIAL PRESSURE O2 79.9 mmHg (75.0-100.0); ABG STANDARD HCO3 21.6 MEQ/L (22.0-26.0); ABG TOTAL CO2 22.2 MEQ/L (22.0-29.0); ABG pH (ARTERIAL) 7.382 UNITS (7.350-7.450)
[2019-02-03] MEDS: IPRATROPIUM 0.5MG/ALBUTEROL 2.5MG INH SOL UD 3ML (DUONEB)(J7620) NEB SCH ×4 (07:48→20:00)
--- NOTE | 2019-02-03 07:53 | ECGEPIP ---
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
[2019-02-03] MEDS ORDERED: KCL 10MEQ/100ML SWI (KRUN) 10 MEQ in APPROPRIATE DILUENT 1 EA IV ONE (08:00)
--- NOTE | 2019-02-03 08:04 | REP ---
Portable chest x-ray: Single view. History: Respiratory failure. Comparison study: February 02, 2019. Findings: Endotracheal tube remains in good position at the level of the transverse aorta. An NG tube enters left upper quadrant of the abdomen. There is a bibasilar pattern of linear plate-like atelectasis again noted perhaps slightly improved from yesterday's radiograph. No new infiltrate is seen. There is no evidence of pleural effusion. Heart size is unchanged. Impression: Bibasilar atelectasis. Electronically Signed by Aki Logan MD 02/03/2019 07:55 A
[2019-02-03] MEDS: ENOXAPARIN 40 MG/0.4 ML SYRINGE (J1650) SC SCH (08:31)
[2019-02-03] MEDS ORDERED: CHLORHEXIDINE GLUCONATE 0.12 % 15ML UDC (PERIDEX ORAL RINSE) MT SCH (09:00)
[2019-02-03] MEDS ORDERED: PANTOPRAZOLE 40MG INJ (PROTONIX) (C9113) IV SCH (09:00)
[2019-02-03] MEDS: lamoTRIgine 100MG TAB PO SCH ×2 (11:20→21:15)
--- NOTE | 2019-02-03 11:26 | CCN ---
DATE: 02/03/2019 Yesenia Melgar is a 53-year-old female who came in with respiratory failure secondary to intoxication and drug overdose thought to be Seroquel. The patient was intubated in the emergency room (ER). This morning she was given a sedation vacation and her vent settings were changed to pressure support. The patient was able to follow commands. She reported no pain. She is afebrile. VITALS: Temperature 98.9, pulse 89, respiratory rate 28, blood pressure is 133/65, pulse ox 94%. Initially on volume control ventilator settings and changed to pressure support. GENERAL: The patient is alert and oriented. She is intubated. HEENT: Head is normocephalic, atraumatic plus mucous membranes. She is intubated. NECK: Neck is supple. No cervical lymphadenopathy. Trachea is midline. No jugular venous distention (JVD). CARDIAC: Regular rate and rhythm. S1, S2. No murmurs. PULMONARY: Clear to auscultation bilaterally. No wheezes, rales, rhonchi. No accessory muscle use. ABDOMEN: Positive bowel sounds, soft, nontender rebound or guarding. No hepatosplenomegaly. EXTREMITIES: No clubbing, cyanosis or edema. Skin is warm and dry. LABS: ABG: pH 7.382, pCO2 36.3, pO2 79.9, HCO3 21.1. WBCs 14.6, hemoglobin 13.4, hematocrit 40.8, platelets 261. Sodium 140, potassium 3.4, chloride 108, carbon dioxide 24, BUN 7, creatinine 0.58, glucose 129, calcium 8.0, total bili 0.3, AST 13, ALT 16, alk phos 95, total protein 6.6, albumin 3.3. Tox screen at admission, ethyl alcohol was elevated at 0.126. Chest x-ray does show some bibasilar atelectasis. ASSESSMENT/PLAN: 1. Drug overdose and intoxication: The patient was following commands during vacation sedation. She is extubated and did well after extubation. She will be transferred to the hospitalist service. She will likely need psychiatric consult but will defer to the hospitalist taking over for arranging that. Patient's Lamictal was restarted. 2. Hypokalemia. The patient was given potassium replacement. Will be transferring the patient to Dr. Mariee's service.
[2019-02-03] MEDS: ADVAIR HFA 230/21MCG INHALER INH SCH ×2 (11:54→21:00)
[2019-02-03] MEDS ORDERED: NICOTINE POLACRILEX 2 MG GUM PO PRN (15:15)
[2019-02-03] MEDS ORDERED: clonazePAM 1 MG TAB PO PRN (15:15)
[2019-02-03] MEDS ORDERED: PILL CRUSHER/CUTTER 1 EACH XX PRN (21:00)
[2019-02-03] MEDS ORDERED: MIRTAZAPINE 15 MG TAB PO PRN (21:00)
[2019-02-03] MEDS ORDERED: PARoxetine 10MG TABLET PO SCH (21:00)
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
[2019-02-03] MEDS: clonazePAM 0.5 MG TAB PO PRN (21:14)
[2019-02-04 06:00] VITALS: BP 147/75
[2019-02-04 06:16] LABS: HEMOGLOBIN 12.4 g/dl (12.0-15.5); MEAN CORPUSCULAR HEMOGLOBIN 30.4 pg (27.0-33.0); MEAN CORPUSCULAR HGB CONC 32.6 g/dl (32.0-36.5); MEAN CORPUSCULAR VOLUME 93.1 fl (80.0-96.0); PLATELET COUNT, AUTOMATED 248 10^3/uL (150-450); RED BLOOD COUNT 4.08 10^6/uL (4.00-5.40); WHITE BLOOD COUNT 7.9 10^3/uL (4.0-10.0)
[2019-02-04 06:38] LABS: ALBUMIN 2.9 GM/DL (3.2-5.2); ALT/SGPT 14 U/L (12-78); BILIRUBIN,TOTAL 0.2 MG/DL (0.2-1.0); BLOOD UREA NITROGEN 7 MG/DL (7-18); CALCIUM LEVEL 7.8 MG/DL (8.5-10.1); CARBON DIOXIDE LEVEL 28 MEQ/L (21-32); CHLORIDE LEVEL 110 MEQ/L (98-107); CREATININE FOR GFR 0.51 MG/DL (0.55-1.30); GLOMERULAR FILTRATION RATE > 60.0 (>51); GLUCOSE, FASTING 120 MG/DL (70-100); POTASSIUM SERUM 3.6 MEQ/L (3.5-5.1); SODIUM LEVEL 142 MEQ/L (136-145); TOTAL PROTEIN 6.2 GM/DL (6.4-8.2)
[2019-02-04] MEDS: ADVAIR HFA 230/21MCG INHALER INH SCH (07:18)
[2019-02-04] MEDS: IPRATROPIUM 0.5MG/ALBUTEROL 2.5MG INH SOL UD 3ML (DUONEB)(J7620) NEB SCH ×3 (07:18→15:22)
[2019-02-04 08:10] VITALS: BP 128/76
[2019-02-04] MEDS: lamoTRIgine 100MG TAB PO SCH (08:10)
[2019-02-04] MEDS: ENOXAPARIN 40 MG/0.4 ML SYRINGE (J1650) SC SCH (08:11)
[2019-02-04] MEDS: clonazePAM 0.5 MG TAB PO PRN (08:14)
--- NOTE | 2019-02-04 08:52 | ECGEPIP ---
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
[2019-02-04] MEDS ORDERED: VENLAFAXINE 37.5 MG TAB PO SCH (09:00)
[2019-02-04] MEDS ORDERED: LIDOCAINE 5% (LIDODERM) PATCH TD SCH (09:00)
[2019-02-04] MEDS ORDERED: PANTOPRAZOLE 40MG TAB (PROTONIX) PO SCH (09:00)
[2019-02-04] MEDS ORDERED: LISINOPRIL 20 MG TAB PO SCH (09:00)
--- NOTE | 2019-02-04 09:29 | MHCRPDOC ---
[facility] Consultation Consultation DATE OF CONSULTATION: 02/04/19 CONSULTATION REQUESTED BY: Consulted by medical team. REASON FOR CONSULTATION: Patient extubated in ICU, status post intentional overdose on 10x 300 mg seroquel and 9 beers. 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 Says her friend "Nahun" called came to her home since he did not hear from her then called 911 and she was brought to the hospital. She has optic neuritis in context of her MS. She also reports her mother developed Alzheimer's after having chemotherapy for her breast cancer and seeing her condition worsen has been a major stressor. Currently denies SI/HI/AVH/joce, but reports prior to overdose she had decreased mood and suicidal thoughts. Says the attempt was "stupid" and impulsive. Her last admission was Sep 2016 for intentional overdose (10 beers, 12x 300 mg seroquel). has at least 3 suicide attempts in total. Reports total of 5 admissions in the [facility]. Recently has had treatment for multiple medical problems, including pneumonia, COPD exacerbation. RELEVANT HISTORY: BAL 0.126 on admission. PAST PSYCHIATRIC HISTORY:Bipolar disorder, depression, agoraphobia, PTSD. At last 5 inpatient admissions to [facility]. At least 2-3 suicide attempts by overdose on her medications. Sees Mesha Ivory at [facility] outpatient for medications and therapy. Past medications lamictal 150 mg BID, seroquel 300 mg QHS, paroxetine Hcl 30 mg QHS, PRN clonazepm 1 mg BID, PRN lunesta 2 mg QHS. (BP control with lisinopril 20 mg daily, COPD PRN albuterol and BID salmeterol/fluticasone) PAST MEDICAL HISTORY: Multiple sclerosis, COPD, chronic back pain, obesity, previous alcohol use and withdrawal seizure, ocular migraine headaches, HTN. Surgeries: cholecystectomy, appendectomy, ovarian cystectomy. FAMILY HISTORY: Mother: Alzheimer's, breast cancer. Father: HTN , [place] at 62 Siblings: 2 younger brothers Children: Denies PERSONAL AND SOCIAL HISTORY: The patient was born and raised in [place]. Says her Resides in: [place] Marital Status: S Single Children: None. Employment: Unemployed, on SSI. SUBSTANCE ABUSE HISTORY: Smoking: Tobacco use, 1 PPD, >30 years ETOH: binge drinking, last drink prior to admission ("9 beers") Illicit Drugs: Denies LEGAL HISTORY: Denies MENTAL STATUS EXAMINATION: Patient is a 53-year old female, who is in nad, in hospital gown, fair eye- contact, glasses, fair hygiene. Speech is normal rate, rhythm, volume. Language skills are average. Thought processes including: linear, logical. Thought content: anxious due to life stressors. Abstract reasoning, and computation: intact. Description of associations: intact. Description of abnormal or psychotic thoughts: denies. Judgment: poor. Insight: poor. Awake and alert. Recent and remote memory: average. Attention span and concentration: normal. Language: kazakh. Fund of knowledge: below average. Mood: "fine". Affect: dysthymic, irritable, anxious, constricted, mood-incongruent. DIAGNOSIS: 1. Bipolar disorder per history 2.Alcohol use disorder, chronic PLAN: 1. Suggest patient be maintained on direct constant observation and social work arrange for inpatient psychiatric admission for safety/stabilization since endorsed intentional overdose in context of depression and anxiety meeting inpatient admission criteria. High risk patient since multiple past SA by overdose and corresponding admissions, also patient having difficulty taking care of her medical condition. 2. Suggest maintain on CIWA protocol and discontinue standing benzodiazepines (abuse potential, not first line for treating anxiety) as well as discontinuing lunesta (has side effects which can cause worsening of anxiety, depression, headaches). 3. Suggest d/c paxil (paroxetine) CR and switch to effexor(venlafaxine) 37.5 mg PO daily for 4-5 days before increasing to 75 mg PO daily for anxiety and depression. 4. Can add as needed olanzapine 5 mg PO Q2H MDD 3 for severe agitation and 50 mg hydroxyzine Q2H MDD 4 for mild to moderate agitation 5. Can hold seroquel 300 mg PO QHS for mood lability since overdosed on the medication. 6. Suggest get a lipid panel and hba1c for monitoring of metabolic syndrome, since on home atypical antipsychotic medication; seroquel. 7. Continue lamictal 150 mg PO BID for bipolar disorder. Vital Signs Vital Signs Date Time Temp Pulse Resp B/P (MAP) Pulse Ox O2 Delivery O2 Flow Rate FiO2 4/4/19 06:00 97.9 87 17 147/75 (99) 92 02/03/19 14:00 2.0 02/03/19 10:43 Aerosol Mask 40 Laboratory Data 24H Labs Laboratory Tests 2 02/04/19 05:41: Nucleated Red Blood Cells % (auto) 0.0, Anion Gap 4L, Glomerular Filtration Rate > 60.0, Blood Urea Nitrogen 7, Creatinine 0.51L, Sodium Level 142, Potassium Level 3.6, Chloride Level 110H, Carbon Dioxide Level 28, Calcium Level 7.8L, Aspartate Amino Transf (AST/SGOT) 19, Alanine Aminotransferase (ALT/SGPT) 14, Alkaline Phosphatase 95, Total Bilirubin 0.2, Total Protein 6.2L, Albumin 2.9L, Albumin/Globulin Ratio 0.88L Home Medications Current Medications Current Medications Albuterol/ Ipratropium (Duoneb (Ipr 0.5mg/Alb 2.5mg)) 3 ml RQID NEB Last administered on 02/03/19 15:52; Start 02/03/19 at 08:00 Aripiprazole (AbiLIFY) 2.5 mg BID PO Last administered on 02/03/19at 22:00; Start 02/03/19 at 21:00 Chlorhexidine Gluconate (Peridex Oral Rinse) SWAB/BRUSH ORAL CAVITY BID MT Last administered on 02/03/19at 08:30; Start 02/03/19 at 09:00; Stop 02/03/19 at 10:42; Status DC Clonazepam (KlonoPIN) 0.5 mg BIDP PRN PO ANXIETY Last administered on 02/03/19at 21:14; Start 02/03/19 at 21:00 Clonazepam (KlonoPIN) 1 mg BID PRN PO ANXIETY; Start 02/03/19 at 15:15; Stop 02/03/19 at 20:50; Status DC Enoxaparin Sodium (Lovenox) 40 mg DAILY SC Last administered on 02/03/19at 08:31; Start 02/03/19 at 09:00 Home Med (Med Rec Complete!) ASDIRECTED XX ; Start 02/03/19 at 00:15; Stop 02/03/19 at 00:19; Status DC Lamotrigine (LaMICtal) 150 mg BID PO Last administered on 02/03/19at 21:15; Start 02/03/19 at 09:00 Lisinopril (Prinivil) 20 mg DAILY PO ; Start 02/04/19 at 09:00 Midazolam HCl (Versed) 2 mg Q15MP PRN IV AGITATION Last administered on 02/03/19at 06:12; Start 02/02/19 at 23:45; Stop 02/03/19 at 10:42; Status DC Mirtazapine (Remeron) 15 mg QHSP PRN PO insomnia; Start 02/03/19 at 21:00 Morphine Sulfate (Morphine Sulfate Inj) 2 mg Q2HP PRN IV PAIN; Start 02/02/19 at 23:45; Stop 02/03/19 at 10:42; Status DC Naloxone HCl (Narcan) 2 mg STAT STAT IV Last administered on 02/02/19at 22:35; Start 02/02/19 at 22:25; Stop 02/02/19 at 22:26; Status DC Nicotine (Nicorette) 2 mg Q2HP PRN PO NICOTINE WITHDRAWAL; Start 02/03/19 at 15:15 Pantoprazole Sodium (Protonix) 40 mg DAILY IV Last administered on 02/03/19 08:31; Start 02/03/19 at 09:00; Stop 02/03/19 at 21:01; Status DC Pantoprazole Sodium (Protonix) 40 mg DAILY PO ; Start 02/04/19 at 09:00 Paroxetine HCl (PAXil) 30 mg QHS PO ; Start 02/03/19 at 21:00; Stop 02/03/19 at 21:00; Status DC Propofol 1000 mg/ IV Miscellaneous Supplies 100 ml @ 15 mls/hr Q6H40M IV Last administered on 02/02/19at 23:20; Start 02/02/19 at 23:00; Stop 02/03/19 at 00:44; Status DC Propofol 1000 mg/ IV Miscellaneous Supplies 100 ml @ 6 mls/hr [id number] IV Last administered on 02/03/19at 06:12; Start 02/02/19 at 23:31; Stop 02/03/19 at 10:42; Status DC Salmeterol Xinafoate/ Fluticasone (Advair Hfa 230/ 21) 2 puff BID INH Last administered on 02/03/19at 11:54; Start 02/03/19 at 09:00 Scheduled Esomeprazole Magnesium Trihydr (Nexium) 40 Mg Cap, 40 MG PO DAILY, (Reported) Lamotrigine (Lamictal) 150 Mg Tab, 150 MG PO BID, (Reported) Lisinopril (Lisinopril) 20 Mg Tab, 20 MG PO DAILY, (Reported) Paroxetine Hydrochloride (Paxil) 30 Mg Tab, 30 MG PO QHS, (Reported) Quetiapine Fumerate (Quetiapine Fumarate) 300 Mg Tab, 300 MG PO QHS, (Reported) Salmeterol/Fluticasone (Advair Diskus 500-50 Mcg/Dose) 28 Puff/Inhaler Aerp, 1 PUFF INH BID, (Reported) Scheduled PRN Albuterol Sulfate (Ventolin Hfa) 108 Mcg/Act Aer, 2 MCG INH Q6H PRN for SHORTNESS OF BREATH, (Reported) Albuterol/Ipratropium (Ipratropium [place]/Albut 0.5-2.5 (3) mg/3Ml) 1 Carmelina Carmelina, 3 ML INH Q6H PRN for SHORTNESS OF BREATH, (Reported) Cetirizine HCl (Cetirizine HCl) 10 Mg Tab, 10 MG PO DAILY PRN for ALLERGIES, (Reported) Clonazepam (Clonazepam) 1 Mg Tab, 1 MG PO BID PRN for ANXIETY, (Reported) Eszopiclone (Lunesta) 2 Mg Tab, 2 MG PO QHS PRN for SLEEP, (Reported) Simethicone (Simethicone) 80 Mg Chew, 80 MG PO PCHS PRN for GAS PAIN, (Reported) Allergies Coded Allergies: metronidazole (Verified Allergy, Mild, RASH, 02/02/19) naproxen (Verified Allergy, Mild, RASH, 02/02/19) Sulfa (Sulfonamide Antibiotics) (Verified Allergy, Unknown, 02/02/19) ALVIN TURNER PGY-1 Feb 04, 2019 08:18
[2019-02-04] MEDS ORDERED: NICO2GUM40 PO (11:38)
[2019-02-04] MEDS ORDERED: LIDO5TD TD (11:38)
[2019-02-04] MEDS ORDERED: MIRT15TA3 PO (11:38)
[2019-02-04] MEDS ORDERED: ARIP1TAB6 PO (11:38)
[2019-02-04] MEDS ORDERED: CLON0.5T8 PO (11:38)
[2019-02-04] MEDS ORDERED: VENL37TA PO (11:38)
[2019-02-04 14:00] VITALS: BP 136/71
--- NOTE | 2019-02-04 16:23 | DS.PDOC ---
Discharge Summary General Date of Admission Feb 02, 2019 at 23:31 Date of Discharge 02/03/19 Specialist/Consultants Involve: KEN SCHAEFERP Discharge Summary PROCEDURES PERFORMED DURING STAY: None. ADMITTING DIAGNOSES: Respiratory failure secondary to intoxication and probable drug overdose with metabolic toxic encephalopathy, lactic acidosis secondary to work of breathing, obesity, nicotine dependence, alcohol dependence with history of alcohol withdrawal seizures, reported history of COPD DISCHARGE DIAGNOSES: Acute toxic metabolic insult A under Dr. intoxication as well as intentional Seroquel overdose, acute hypoxemic hypercapnic respiratory failure status post mechanical ventilation, lactic acidosis, bipolar disorder/depression, COPD, reported history of multiple sclerosis, hypertension, obesity with a BMI of 39.4, nicotine dependence/cigar smoking in setting of COPD, alcohol intoxication with history of alcohol abuse COMPLICATIONS/CHIEF COMPLAINT: Alcohol intoxication, Seroquel overdose. HISTORY OF PRESENT ILLNESS: The patient is a 53-year-old female who presented to the hospital yesterday after consuming alcohol as well as 10 tablets of 300 mg Seroquel - the patient reported that she has been having problems of multiple sclerosis and she also has been having a hard time dealing with her mother having progressive Alzheimer's. She reports she drank alcohol and took the seroquel "to make this go away". The patient initially was unresponsive and had to be intubated for airway protection. She was admitted under operations architect service. She was monitored overnight and extubated the following morning after successful weaning trial. She was transferred to hospitalist service for further management. HOSPITAL COURSE: Acute toxic metabolic encephalopathy secondary to alcohol intoxication as well as intentional Seroquel overdose -Status post mechanical ventilation for less than 24 hours for airway protection followed by extubation on 02/03/19 -Mentation seems to back to baseline -Monitored on telemetry -Was on a one-to-one sitter -Discussed with psychiatry per recommendations, discontinued Paxil, started Abilify 2.5 mg twice daily, clonazepam to be decreased to 0.5 mg twice daily as needed, Remeron 15 mg at bedtime as needed, started Effexor 37.5 mg daily and discontinued Seroquel and Lunesta. She will be assessing the patient tomorrow m brice. -Patient was also seen by PT/OT. Able to ambulate with cane as is her baseline. Acute hypoxemic hypercapnic respiratory failure status post mechanical ventilation: -Resolved -Was likely related to the alcohol intoxication and Seroquel overdose Lactic acidosis: -Resolved Bipolar disorder/depression: -Psychiatry has been consulted - patient has been recommended inpatient psychiatric treatment. -Medication changes as noted above COPD: -Continue adalberto guzman Reported history of multiple sclerosis: -Outpatient follow-up with neurology -Physical therapy and occupational therapy Hypertension: -Continue lisinopril Back pain/bilateral hip bursitis: -Ordered lidocaine patches Obesity with BMI of 39.4 Nicotine dependence/cigarette smoking in setting of COPD: -Patient has been counseled regarding quitting smoking -Nicotine gum ordered Alcohol intoxication with history of alcohol abuse: -Counseled regarding quitting drinking. Day of discharge, patient is doing well. She is tolerating oral intake well. Able to ambulate with a cane. Plan is for patient wishes to inpatient mental health unit once bed is available, per psychiatry recommendations. DISCHARGE MEDICATIONS: Please see below. ALLERGIES: Please see below. PHYSICAL EXAMINATION ON DISCHARGE: VITAL SIGNS: Please see below. GENERAL: Up in bed HEENT: PERRLA CARDIOVASCULAR EXAMINATION: S1, S2 heard, regular rate and rhythm, no rubs or gallops RESPIRATORY EXAMINATION: Clear to auscultation bilaterally. No wheeze, no crackles ABDOMINAL EXAMINATION: Soft EXTREMITIES: No edema SKIN: No rash NEUROLOGICAL EXAMINATION: Awake, alert, oriented 3. Moving all 4 extremities. Does seem to have some tremulousness while testing strength on left side which patient attributes to underlying MS LABORATORY DATA: Please see below. IMAGING: Chest x-ray 02/03/19: Impression: Bibasilar atelectasis. CXR 02/02/19: Impression: 1. Endotracheal tube 1.4 cm above the titi. 2. Bibasilar opacities suggesting atelectasis/multifocal infiltrates and possible small right pleural effusion. CXR 02/02/19: Impression: Multi focal infiltrate/atelectasis involving the lower lobes with possible small right pleural effusion. ACTIVITY: As tolerated. DIET: Regular DISCHARGE PLAN: Plan is to discharge patient to inpatient mental health unit once bed is available. Outpatient f/u with primary care provider in one week DISPOSITION: [facility] once bed available DISCHARGE CONDITION: Stable. TIME SPENT ON DISCHARGE: 35 minutes. Vital Signs/I&Os Vital Signs Date Time Temp Pulse Resp B/P (MAP) Pulse Ox O2 Delivery O2 Flow Rate FiO2 4/4/19 08:10 128/76 02/04/19 06:00 97.9 87 17 92 02/03/19 14:00 2.0 02/03/19 10:43 Aerosol Mask 40 I&O- Last 24 Hours up to 6 AM 02/04/19 06:00 Intake Total 1312 ml Output Total 1915 ml Balance -603 ml Laboratory Data Labs 24H Laboratory Tests 2 02/04/19 05:41: Nucleated Red Blood Cells % (auto) 0.0, Anion Gap 4L, Glomerular Filtration Rate > 60.0, Blood Urea Nitrogen 7, Creatinine 0.51L, Sodium Level 142, Potassium Level 3.6, Chloride Level 110H, Carbon Dioxide Level 28, Calcium Level 7.8L, Aspartate Amino Transf (AST/SGOT) 19, Alanine Aminotransferase (ALT/SGPT) 14, Alkaline Phosphatase 95, Total Bilirubin 0.2, Total Protein 6.2L, Albumin 2.9L, Albumin/Globulin Ratio 0.88L CBC/BMP Laboratory Tests 02/04/19 05:41 Red Blood Count 4.08, Mean Corpuscular Volume 93.1, Mean Corpuscular Hemoglobin 30.4, Mean Corpuscular Hemoglobin Concent 32.6, Red Cell Distribution Width 14.3, Calcium Level 7.8 L, Aspartate Amino Transf (AST/SGOT) 19, Alanine Aminotransferase (ALT/SGPT) 14, Alkaline Phosphatase 95, Total Bilirubin 0.2, Total Protein 6.2 L, Albumin 2.9 L Microbiology Microbiology 02/03/19 Blood Culture - Preliminary, Resulted No growth after 24 hours . All specim... 02/03/19 Blood Culture - Preliminary, Resulted No growth after 24 hours . All specim... Discharge Medications Scheduled Aripiprazole (Aripiprazole) 5 Mg Tab, 2.5 MG PO BID Esomeprazole Magnesium Trihydr (Nexium) 40 Mg Cap, 40 MG PO DAILY, (Reported) Lamotrigine (Lamictal) 150 Mg Tab, 150 MG PO BID, (Reported) Lidocaine (Lidocaine) 5 % Pad, 3 PATCH TD DAILY apply to each hip and lower back Lisinopril (Lisinopril) 20 Mg Tab, 20 MG PO DAILY, (Reported) Salmeterol/Fluticasone (Advair Diskus 500-50 Mcg/Dose) 28 Puff/Inhaler Aerp, 1 PUFF INH BID, (Reported) Venlafaxine HCl (Venlafaxine HCl) 37.5 Mg Tab, 37.5 MG PO DAILY Scheduled PRN Albuterol Sulfate (Ventolin Hfa) 108 Mcg/Act Aer, 2 MCG INH Q6H PRN for SHORTNESS OF BREATH, (Reported) Albuterol/Ipratropium (Ipratropium [place]/Albut 0.5-2.5 (3) mg/3Ml) 1 Carmelina Carmelina, 3 ML INH Q6H PRN for SHORTNESS OF BREATH, (Reported) Cetirizine HCl (Cetirizine HCl) 10 Mg Tab, 10 MG PO DAILY PRN for ALLERGIES, (Reported) Clonazepam (Clonazepam) 0.5 Mg Tab, 0.5 MG PO BIDP PRN for ANXIETY Mirtazapine (Mirtazapine) 15 Mg Tab, 15 MG PO QHSP PRN for insomnia Nicotine Polacrilex (Nicotine Polacrilex) 2 Mg Gum, 2 MG PO Q2HP PRN for NICOTINE WITHDRAWAL Simethicone (Simethicone) 80 Mg Chew, 80 MG PO PCHS PRN for GAS PAIN, (Reported) Allergies Coded Allergies: metronidazole (Verified Allergy, Mild, RASH, 02/02/19) naproxen (Verified Allergy, Mild, RASH, 02/02/19) Sulfa (Sulfonamide Antibiotics) (Verified Allergy, Unknown, 02/02/19) ZEHRA LIN MD Feb 04, 2019 11:39
[2019-02-04] MEDS ORDERED: **NOTE PATIENT COMMENT** MISC XX SCH (21:00)
== END 2019-02-04 16:45 | DRG 812 ==
LOC: M ED 21:34 → EDBD 21:34 → M ED INP 23:31 → M ICU 02-03 00:40 → M MSPAV 02-03 17:57
PROVIDERS: ADMIT Internal Medicine Pulmonary Disease; ATTEND Internal Medicine
PROC: 5A1935Z Respiratory Ventilation, Less than 24 Consecutive Hours (ICD-10-PCS; principal; 2019-02-02)
DX: T43.592A Poisoning by other antipsychotics and neuroleptics, intentional self-harm, initial encounter (principal); J96.01 Acute respiratory failure with hypoxia; G92 Toxic encephalopathy; G35 Multiple sclerosis; J96.02 Acute respiratory failure with hypercapnia; E87.2 Acidosis; J44.9 Chronic obstructive pulmonary disease, unspecified; F31.9 Bipolar disorder, unspecified; F10.229 Alcohol dependence with intoxication, unspecified; E66.9 Obesity, unspecified; Z68.39 Body mass index [BMI] 39.0-39.9, adult; E87.6 Hypokalemia; F17.200 Nicotine dependence, unspecified, uncomplicated; M70.71 Other bursitis of hip, right hip; M70.72 Other bursitis of hip, left hip; Z79.899 Other long term (current) drug therapy; Z88.2 Allergy status to sulfonamides; Z88.8 Allergy status to other drugs, medicaments and biological substances; G43.909 Migraine, unspecified, not intractable, without status migrainosus

== ENCOUNTER 2019-02-04 15:44 | Inpatient (IN) | payer MEDICAID ==
[~2019-02-04] VITALS: Ht 152.4 cm; Wt 92.0 kg
[~2019-02-04 15:44] MED LIST changes: +ADV500INH INH; +ARIP1TAB6 PO; +IPRA0.00 INH; +LIDO5TD TD; +MIRT15TA3 PO; +NICO2GUM40 PO; -NORC1TAB4 PO; +NORC1TAB7 PO; +SERO300T PO; -SERO300T20 PO; -VANC250C2 PO; +VANC250C3 PO; +VENL37TA PO; +VENTAER INH
[2019-02-04] MEDS ORDERED: MAALOX 30 ML SUSP *UDC PO PRN (16:00)
[2019-02-04] MEDS ORDERED: MOM 30ML SUSPENSION UDC PO PRN (16:00)
[2019-02-04] MEDS ORDERED: ACETAMINOPHEN TAB 650MG DOSE (2X325MG) PO PRN (16:00)
[2019-02-04 17:15] VITALS: BP 152/93
[2019-02-04] MEDS: IPRATROPIUM 0.5MG/ALBUTEROL 2.5MG INH SOL UD 3ML (DUONEB)(J7620) NEB SCH (20:00)
[2019-02-04] MEDS: lamoTRIgine 100MG TAB PO SCH (20:06)
[2019-02-04] MEDS: MIRTAZAPINE 15 MG TAB PO PRN (20:07)
[2019-02-04] MEDS ORDERED: PARoxetine 10MG TABLET PO SCH (21:00)
[2019-02-04] MEDS: ADVAIR HFA 230/21MCG INHALER INH SCH (21:00)
[2019-02-04] MEDS: **NOTE PATIENT COMMENT** MISC XX SCH (21:00)
[2019-02-05 06:43] VITALS: BP 132/83
[2019-02-05] MEDS: IPRATROPIUM 0.5MG/ALBUTEROL 2.5MG INH SOL UD 3ML (DUONEB)(J7620) NEB SCH ×4 (08:00→20:00)
[2019-02-05] MEDS: ADVAIR HFA 230/21MCG INHALER INH SCH ×3 (08:15→21:16)
[2019-02-05] MEDS: LIDOCAINE 5% (LIDODERM) PATCH TD SCH (08:15)
[2019-02-05] MEDS: PILL CRUSHER/CUTTER 1 EACH XX PRN (08:18)
[2019-02-05] MEDS: clonazePAM 1 MG TAB PO SCH ×2 (08:18→20:05)
[2019-02-05] MEDS: lamoTRIgine 100MG TAB PO SCH ×2 (08:18→20:05)
[2019-02-05] MEDS: VENLAFAXINE 37.5 MG TAB PO SCH (08:19)
[2019-02-05] MEDS: LISINOPRIL 20 MG TAB PO SCH (08:19)
[2019-02-05] MEDS ORDERED: NICOTINE 21MG/24HR 1 EA TRANSDERMAL TD SCH (09:00)
--- NOTE | 2019-02-05 10:38 | HPEPDOC ---
General Date of Admission Feb 04, 2019 at 16:51 Primary Care Physician: JAY FARMER MD Attending Physician: JAY FARMER MD Chief Complaint The patient is a 53-year-old female admitted with a reason for visit of Major Depressive Disorder, Recurrent. Source: Patient Exam Limitations: No limitations Timing/Duration: Unsure History of Present Illness This is 53. Usual pleasant white female with past medical history of multiple sclerosis, optic neuritis of right eye hypertension, GERD, COPD, bursitis of hip and shoulder, also arthritis of left knee and lumbar radiculopathy was admitted with the bipolar disorder, PTSD and anxiety We will called in to do a medical H&P on this patient, patient was examined and interviewed in the office Home Medications Scheduled Aripiprazole (Aripiprazole) 5 Mg Tab, 2.5 MG PO BID Esomeprazole Magnesium Trihydr (Nexium) 40 Mg Cap, 40 MG PO DAILY, (Reported) Lamotrigine (Lamictal) 150 Mg Tab, 150 MG PO BID, (Reported) Lidocaine (Lidocaine) 5 % Pad, 3 PATCH TD DAILY apply to each hip and lower back Lisinopril (Lisinopril) 20 Mg Tab, 20 MG PO DAILY, (Reported) Salmeterol/Fluticasone (Advair Diskus 500-50 Mcg/Dose) 28 Puff/Inhaler Aerp, 1 PUFF INH BID, (Reported) Venlafaxine HCl (Venlafaxine HCl) 37.5 Mg Tab, 37.5 MG PO DAILY Scheduled PRN Albuterol Sulfate (Ventolin Hfa) 108 Mcg/Act Aer, 2 MCG INH Q6H PRN for SHORTNESS OF BREATH, (Reported) Albuterol/Ipratropium (Ipratropium [place]/Albut 0.5-2.5 (3) mg/3Ml) 1 Carmelina Carmelina, 3 ML INH Q6H PRN for SHORTNESS OF BREATH, (Reported) Cetirizine HCl (Cetirizine HCl) 10 Mg Tab, 10 MG PO DAILY PRN for ALLERGIES, (Reported) Clonazepam (Clonazepam) 0.5 Mg Tab, 0.5 MG PO BIDP PRN for ANXIETY Mirtazapine (Mirtazapine) 15 Mg Tab, 15 MG PO QHSP PRN for insomnia Nicotine Polacrilex (Nicotine Polacrilex) 2 Mg Gum, 2 MG PO Q2HP PRN for NICOTINE WITHDRAWAL Simethicone (Simethicone) 80 Mg Chew, 80 MG PO PCHS PRN for GAS PAIN, (Reported) Allergies Coded Allergies: metronidazole (Verified Allergy, Mild, RASH, 02/02/19) naproxen (Verified Allergy, Mild, RASH, 02/02/19) Sulfa (Sulfonamide Antibiotics) (Verified Allergy, Unknown, 02/02/19) Family History Significant Family History: No pertinent family hx Social History * Smoker: current smoker, greater than 1 pack/day, cigarettes Alcohol: Denies Drugs: denies Psychosocial History: Bipolar, Decreased mood Lives with the family Review of Systems Constitutional: Denies: Chills, Fever, Night Sweats Eyes: Denies: Pain, Vision change ENT: Denies: Head Aches, Ear Pain, Dysphagia Skin: Denies: Rash, Lesions, Breakdown Pulmonary: Denies: Dyspnea, Cough Cardiovascular: Denies: Chest Pain, Palpitations, Orthopnea, Paroxysmal Noc. Dyspnea, Lt Headedness Gastrointestinal: Denies: Nausea, Vomiting, Abdominal Pain, Diarrhea Genitourinary: Denies: Dysuria, Frequency, Incontinence, Retention Hematologic: Denies: Bruising, Bleeding Excessively Musculoskeletal: Denies: Neck Pain, Back Pain, Joint Pain, Muscle Pain, Spasms Neurological: Denies: Weakness, Numbness, Change in speech, Confusion Psych: Reports: Mood Normal; Denies: Depression, Memory Issues Physical Examination General Exam: Positive: Alert, No Acute Distress Eye Exam: Positive: PERRLA, Conjunctiva & lids normal, EOMI; Negative: Sclera icteric ENT Exam: Positive: Atraumatic, Mucous membr. moist/pink, Pharynx Normal Neck Exam: Positive: Supple; Negative: JVD, thyromegaly Chest Exam: Positive: Clear to auscultation, Normal air movement Heart Exam: Positive: Rate Normal, Regular Rhythm, Normal S1, Normal S2; Negative: Murmurs, Rubs Telemetry: Positive: No significant arrhythmia Abdomen Exam: Positive: Normal bowel sounds, Soft; Negative: Tenderness, Hepatospenomegaly Extremity Exam: Positive: Normal pulses; Negative: Clubbing, Cyanosis, Edema Skin Exam: Positive: Nl turgor and temperature; Negative: Breakdown, Lesion Neuro Exam: Positive: Normal Gait, Normal Speech, Cranial Nerves 3-12 NL, Reflexes 2+ Psych Exam: Positive: Mental status NL, Mood NL, Oriented x 3 Vital Signs Vital Signs Date Time Temp Pulse Resp B/P (MAP) Pulse Ox O2 Delivery O2 Flow Rate FiO2 02/05/19 08:19 138/86 02/05/19 06:43 97.7 93 18 02/04/19 17:15 95 Problems (1) COPD with acute bronchitis Status: Chronic Response to Treatment: Stable Problem Text: Patient has a history of smoking. She is active smoker, 1 pack per day for last 35 years Extensive smoking cessation counseling was done and we'll continue all her home medications at the present time (2) Asthma Status: Chronic Response to Treatment: Stable (3) Optic neuritis, right Status: Chronic Response to Treatment: Stable (4) Low back pain Status: Chronic Response to Treatment: Stable Problem Text: Patient is requesting a narcotics for her Erasmo pain. All the risks of narcotic were explained to her. Patient will be prescribed Tylenol when necessary for her back pain Encouraged to continue ambulation as tolerated (5) Overdose Status: Acute Response to Treatment: Stable Problem Text: Patient was admitted to MICU followed by the medical floor Patient seems clinically stable for the psychiatric intervention as per psych We'll keep monitoring this patient medically. If there is any any change in the status. Please call the medical team for reevaluation Plan / VTE VTE Prophylaxis Ordered?: No VTE Exclusion Mechanical Proph: Low Risk for VTE KELLEY HUYNH MD Feb 05, 2019 10:38
[2019-02-05] MEDS ORDERED: NICOTINE POLACRILEX 2 MG GUM PO PRN (13:15)
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
[2019-02-05 18:25] VITALS: BP 135/74
[2019-02-05] MEDS: **NOTE PATIENT COMMENT** MISC XX SCH (20:02)
[2019-02-05] MEDS: PARoxetine 10MG TABLET PO SCH (20:06)
[2019-02-05] MEDS: MIRTAZAPINE 15 MG TAB PO PRN (20:08)
[2019-02-06 06:13] LABS: CHOLESTEROL RISK RATIO 3.777 (<5)
[2019-02-06 06:50] LABS: HEMOGLOBIN A1c 5.6 %
[2019-02-06 06:51] VITALS: BP 150/70
[2019-02-06] MEDS: IPRATROPIUM 0.5MG/ALBUTEROL 2.5MG INH SOL UD 3ML (DUONEB)(J7620) NEB SCH ×4 (08:00→20:00)
[2019-02-06] MEDS: PILL CRUSHER/CUTTER 1 EACH XX PRN (08:01)
[2019-02-06] MEDS: clonazePAM 1 MG TAB PO SCH ×2 (08:02→20:24)
[2019-02-06] MEDS: VENLAFAXINE 37.5 MG TAB PO SCH (08:02)
[2019-02-06] MEDS: lamoTRIgine 100MG TAB PO SCH ×2 (08:02→20:24)
[2019-02-06] MEDS: LIDOCAINE 5% (LIDODERM) PATCH TD SCH (08:03)
[2019-02-06] MEDS: LISINOPRIL 20 MG TAB PO SCH (08:03)
[2019-02-06] MEDS: CEPACOL LOZENGE PO PRN ×3 (10:28→19:57)
[2019-02-06] MEDS: PANTOPRAZOLE 20 MG TAB PO SCH (12:43)
--- NOTE | 2019-02-06 15:38 | MHIPN ---
DATE: 02/06/2019 SUBJECTIVE: "I'm happy that I am alive. I drank 9 beers, and I didn't know what I was doing. I was under a lot of stress taking care of my mother, and I have MS and overdosed on Seroquel. I was treated at ICU, and I've been transferred here." OBJECTIVE: She is a 53-year-old female with history of bipolar disorder, posttraumatic stress disorder (PTSD), generalized anxiety disorder. Also multiple sclerosis. Was admitted after patient attempted suicide by overdosing on Seroquel after drinking beer. Currently she reports she has been doing well, but patient was a little worried because of change of medication; however, denies any symptoms of joce or severe depression. MENTAL STATUS EXAMINATION: Appearance: Well groomed with good personal hygiene. Behavior is cooperative. Eye contact is normal. Speech is spontaneous, conversant. Affect is full range. Mood is mildly depressed. Thought process is linear, goal directed. Thought content: Denied any delusions or paranoia. Denied any suicidal or homicidal ideas. Cognition: Alert, oriented to time, place, and person. Memory is intact. Denied any auditory or visual hallucinations. Insight and judgment are fair to limited. VITAL SIGNS: Temperature 98.2, pulse is 74, respiratory rate is 14, blood pressure is 150/70. DIAGNOSES: 1. Bipolar 1 disorder, most recent episode depressed. 2. Posttraumatic stress disorder. 3. Generalized anxiety disorder. 4. Panic disorder with agoraphobia. Continue her current medication, paroxetine 50 mg at night, venlafaxine 37.5 mg, lamotrigine 150 mg twice a day, aripiprazole 2.5 mg twice a day, mirtazapine 15 mg at bedtime as needed, which I want to increase to 30 mg at bedtime as needed. Continue individual and group therapy.
[2019-02-06 18:00] VITALS: BP 141/80
[2019-02-06] MEDS: **NOTE PATIENT COMMENT** MISC XX SCH (20:20)
[2019-02-06] MEDS: ADVAIR HFA 230/21MCG INHALER INH SCH ×2 (20:21→20:39)
[2019-02-06] MEDS: PARoxetine 10MG TABLET PO SCH (20:23)
[2019-02-06] MEDS: MIRTAZAPINE 15 MG TAB PO PRN (20:24)
[2019-02-07 06:47] VITALS: BP 152/92
[2019-02-07] MEDS: IPRATROPIUM 0.5MG/ALBUTEROL 2.5MG INH SOL UD 3ML (DUONEB)(J7620) NEB SCH ×4 (07:33→20:00)
[2019-02-07] MEDS: VENLAFAXINE 37.5 MG TAB PO SCH (08:24)
[2019-02-07] MEDS: clonazePAM 1 MG TAB PO SCH ×2 (08:24→20:14)
[2019-02-07] MEDS: PILL CRUSHER/CUTTER 1 EACH XX PRN (08:24)
[2019-02-07] MEDS: PANTOPRAZOLE 20 MG TAB PO SCH (08:24)
[2019-02-07] MEDS: lamoTRIgine 100MG TAB PO SCH ×2 (08:25→20:14)
[2019-02-07] MEDS: LISINOPRIL 20 MG TAB PO SCH (08:26)
[2019-02-07] MEDS: LIDOCAINE 5% (LIDODERM) PATCH TD SCH (08:27)
[2019-02-07] MEDS: CEPACOL LOZENGE PO PRN ×2 (11:09→16:44)
[2019-02-07 18:00] VITALS: BP 140/84
--- NOTE | 2019-02-07 20:03 | MHIPN ---
DATE: 02/07/2019 SUBJECTIVE: "They are weaning me off Paxil, I am feeling better. I am thankful that I survived the suicide attempt." OBJECTIVE: She is a 53-year-old female with history of bipolar disorder, posttraumatic stress disorder (PTSD), generalized anxiety disorder. Also multiple sclerosis. Was admitted because she attempted suicide by overdosing on Seroquel after drinking beer. Currently, the patient is improving. Her sleep and appetite are good. MENTAL STATUS EXAMINATION Appearance: Well groomed with good personal hygiene. Behavior is cooperative. Good eye contact. Speech is spontaneous, conversant. Affect is full range. Mood is mildly depressed. Thought process is linear, goal directed. Thought content: Denied any delusions or paranoia. Denied any suicidal or homicidal ideas. Cognition: Alert, oriented to time, place, and person. Memory is intact. Denied any auditory or visual hallucinations. Insight and judgment are fair to limited. VITAL SIGNS: Temperature 96.4, pulse is 81, respiratory rate is 16, blood pressure is 138/92. DIAGNOSES: 1. Bipolar 1 disorder, most recent episode depressed. 2. Posttraumatic stress disorder. 3. Generalized anxiety disorder. 4. Panic disorder with agoraphobia. PLAN: Continue her current medications. Decreased paxil to 5 mg at night. Increase venlafaxine to 75 mg once daily. Continue lamotrigine 150 mg twice daily. Continue aripiprazole 2.5 mg twice a day. Continue mirtazapine 30 mg at bedtime. MTDD
[2019-02-07] MEDS: MIRTAZAPINE 15 MG TAB PO PRN (20:22)
[2019-02-07] MEDS: ADVAIR HFA 230/21MCG INHALER INH SCH (21:00)
[2019-02-07] MEDS: **NOTE PATIENT COMMENT** MISC XX SCH (21:00)
[2019-02-07] MEDS ORDERED: PARoxetine 10MG TABLET PO SCH (21:00)
[2019-02-08] MEDS: CEPACOL LOZENGE PO PRN ×2 (05:31→12:59)
[2019-02-08 06:17] VITALS: BP 150/90
[2019-02-08] MEDS: IPRATROPIUM 0.5MG/ALBUTEROL 2.5MG INH SOL UD 3ML (DUONEB)(J7620) NEB SCH ×2 (08:00→11:38)
[2019-02-08] MEDS: LIDOCAINE 5% (LIDODERM) PATCH TD SCH (08:13)
[2019-02-08] MEDS: ADVAIR HFA 230/21MCG INHALER INH SCH (08:13)
[2019-02-08] MEDS: PANTOPRAZOLE 20 MG TAB PO SCH (08:17)
[2019-02-08] MEDS: clonazePAM 1 MG TAB PO SCH (08:17)
[2019-02-08 08:18] VITALS: BP 138/97
[2019-02-08] MEDS: LISINOPRIL 20 MG TAB PO SCH (08:18)
[2019-02-08] MEDS: lamoTRIgine 100MG TAB PO SCH (08:18)
[2019-02-08] MEDS ORDERED: VENLAFAXINE 37.5 MG TAB PO SCH (09:00)
[2019-02-08] MEDS ORDERED: VENL37TA PO (11:22)
[2019-02-08] MEDS ORDERED: MIRT15TA3 PO (11:22)
--- NOTE | 2019-02-11 09:40 | MHDSPDOC ---
[facility] Discharge Summary Discharge Summary DATE OF ADMISSION: Feb 04, 2019 at 16:51 DATE OF DISCHARGE: Feb 0806/2019 DISCHARGE DIAGNOSES: 1. Bipolar disorder per history, depressive episode 2. PTSD 3. Alcohol use disorder, chronic REASON FOR ADMISSION: per this sign writer hand's consult note 02/04/19: "Patient extubated in ICU, status post intentional overdose on 10x 300 mg seroquel and 9 beers. States she intentionally overdosed because she was she was "stressed" because 2- 3 weeks ago she was diagnosed with worsening vision in L eye and possibility of blindness in both eyes (reports legally blind in R eye). Says her friend "Nahun" called came to her home since he did not hear from her then called 911 and she was brought to the hospital. She has optic neuritis in context of her MS. She also reports her mother developed Alzheimer's after having chemotherapy for her breast cancer and seeing her condition worsen has been a major stressor. Currently denies SI/HI/AVH/joce, but reports prior to overdose she had decreased mood and suicidal thoughts. Says the attempt was "stupid" and impulsive. Her last admission was Sep 2016 for intentional overdose (10 beers, 12x 300 mg seroquel). has at least 3 suicide attempts in total. Reports total of 5 admissions in the [facility]. Recently has had treatment for multiple medical problems, including pneumonia, COPD exacerbation." CONSULTANTS INVOLVED: None TREATMENT AND PROGRESS ON THE UNIT: The patient was admitted on a 9.39 involuntary status after intentional overdose on seroquel medication after being intubated and medically stabilized/cleared. Lipid panel showed elevated ch olesterol at 129 mg/dl and total cholesterol of 204 mg/dl. Hba1c was within normal range 5.6%. She was restarted on her home medications (see below) including clonazepam 0.5 mg PO BID as needed for anxiety, seroquel which was discontinued due to the overdose on the medication. Effexor was started and titrated up to 75 mg Po daily for anxiety and mood. Paxil was slowly titrated down and discontinued. She was continued on lamictal 150 mg PO BID for bipolar. She was started on mirtazapine 15 mg Po QHS for sleep due to insomnia. She endorsed tolerating her medications without side effects and during her stay her depressed mood and anxiety improved, she attended group therapy sessions and received individual therapy. She endorsed regretting her attempt and denied suicidal ideations. She was also given lidocaine patches as needed for back chronic back pain. She was educated on her alcohol use and the risks of drinking while taking her medications including especially clonazepam and the long-term health/safety risks of drinking, including risk for suicide. HOSPITAL COURSE: See above DISCHARGE ASSESSMENT: Patient alert and oriented x4, in no acute distress, at time of discharge denies medication side effects, denies suicidal ideations or homicidal ideations, denies hallucinations or delusions, denies joce. Says she feels "good" and ready to leave. Patient agreeable to discharge. MENTAL STATUS EXAMINATION ON DISCHARGE: General appearance: Patient is a 53-year old female, who is in no acute distress, fair eye-contact, hospital clothing, cooperative. Speech: normal rate, rhythm, volume Thought processes: linear, logical Thought content: guilt and depression around vision loss. Abstract reasoning and computation: intact. Description of associations: normal. Description of abnormal or psychotic thoughts: denies, denies SI/HI today.. Judgment: improving Insight: fair Orientation: x4 Recent and remote memory: intact Attention span and concentration: fair Fund of knowledge: average Mood: "good" Affect: euthymic, full range, does smile. MEDICATIONS ON DISCHARGE: Esomeprazole Magnesium (Nexium) 40 Mg Cap, 40 MG PO DAILY Lamotrigine (Lamictal) 150 Mg Tab, 150 MG PO BID Lidocaine (Lidocaine) 5 % Pad, 3 PATCH TD DAILY apply to each hip and lower back Lisinopril (Lisinopril) 20 Mg Tab, 20 MG PO DAILY, Salmeterol/Fluticasone (Advair 500-50 Diskus) 28 Puff/Inhaler Aerp, 1 PUFF INH BID Venlafaxine HCl (Venlafaxine HCl) 37.5 Mg Tab, 75 MG PO DAILY for depression Scheduled PRN Albuterol Sulfate (Ventolin Hfa) 108 Mcg/Act Aer, 2 MCG INH Q6H PRN for SHORTNESS OF BREATH Cetirizine HCl (Cetirizine HCl) 10 Mg Tab, 10 MG PO DAILY PRN for ALLERGIES Clonazepam (Clonazepam) 0.5 Mg Tab, 0.5 MG PO BIDP PRN for ANXIETY Ipratropium/Albuterol Sulfate (Iprat-Albut 0.5-3(2.5) mg/3 ml) 1 Carmelina Carmelina, 3 ML INH Q6H PRN for SHORTNESS OF BREATH Mirtazapine (Mirtazapine) 15 Mg Tab, 30 MG PO QHSP PRN for INSOMNIA Nicotine Polacrilex (Nicotine Gum) 2 Mg Gum, 2 MG PO Q2HP PRN for NICOTINE WITHDRAWA Simethicone (Simethicone) 80 Mg Chew, 80 MG PO PCHS PRN for GAS PAIN PLAN/FOLLOWUP ARRANGEMENTS: Follow Up Care Education Label * Chemical Dependency Appt1 * Additional information [facility] in hours Friday - Friday [phone] [place] [address] [facility] in hours Friday -Friday [phone] [place] [address] Follow Up Care Education Label * Mental Health Appt 1 * Medical Follow Up [facility] * Established With This Provider Yes * Therapist Argenis Peralta * Date Feb 10, 2019 * Time 11:00 * Address of Clinic or Practice [address] [place] [address] * Follow Up Care Education Label * Mental Health Appt 1 * Established With This Provider No * Therapist MARTHA * Date Feb 09, 2019 * Time 13:30 * * Additional information Please remember to bring your insurance card and photo ID to this appointment. The amount of time spent in the coordination of care for this patient was approximately 20 minutes. Vital Signs/I&Os Vital Signs Date Time Temp Pulse Resp B/P (MAP) Pulse Ox O2 Delivery O2 Flow Rate FiO2 02/08/19 08:18 138/97 02/08/19 06:17 98.1 95 20 02/04/19 17:15 95 Medications Scheduled Esomeprazole Magnesium (Nexium) 40 Mg Cap, 40 MG PO DAILY, (Reported) Lamotrigine (Lamictal) 150 Mg Tab, 150 MG PO BID, (Reported) Lidocaine (Lidocaine) 5 % Pad, 3 PATCH TD DAILY, #90 apply to each hip and lower back Lisinopril (Lisinopril) 20 Mg Tab, 20 MG PO DAILY, (Reported) Salmeterol/Fluticasone (Advair 500-50 Diskus) 28 Puff/Inhaler Aerp, 1 PUFF INH BID, (Reported) Venlafaxine HCl (Venlafaxine HCl) 37.5 Mg Tab, 75 MG PO DAILY for depression for 7 Days, #14 Scheduled PRN Albuterol Sulfate (Ventolin Hfa) 108 Mcg/Act Aer, 2 MCG INH Q6H PRN for SHORTNESS OF BREATH, (Reported) Cetirizine HCl (Cetirizine HCl) 10 Mg Tab, 10 MG PO DAILY PRN for ALLERGIES, (Reported) Clonazepam (Clonazepam) 0.5 Mg Tab, 0.5 MG PO BIDP PRN for ANXIETY, #30 Ipratropium/Albuterol Sulfate (Iprat-Albut 0.5-3(2.5) mg/3 ml) 1 Carmelian Carmelina, 3 ML INH Q6H PRN for SHORTNESS OF BREATH, (Reported) Mirtazapine (Mirtazapine) 15 Mg Tab, 30 MG PO QHSP PRN for INSOMNIA for 7 Days, #14 Nicotine Polacrilex (Nicotine Gum) 2 Mg Gum, 2 MG PO Q2HP PRN for NICOTINE WITHDRAWAL, #20 Simethicone (Simethicone) 80 Mg Chew, 80 MG PO PCHS PRN for GAS PAIN, (Reported) Allergies Coded Allergies: metronidazole (Verified Allergy, Mild, RASH, 02/02/19) naproxen (Verified Allergy, Mild, RASH, 02/02/19) Sulfa (Sulfonamide Antibiotics) (Verified Allergy, Unknown, 02/02/19) ALVIN TURNER PGY-1 Feb 08, 2019 11:23
== END 2019-02-08 13:02 | disposition home or self-care (01) | DRG 753 ==
LOC: M PSY 16:51
PROVIDERS: ADMIT Psychiatry & Neurology Psychiatry; ATTEND Psychiatry & Neurology Psychiatry
DX: F31.30 Bipolar disorder, current episode depressed, mild or moderate severity, unspecified (principal); H46.9 Unspecified optic neuritis; F10.10 Alcohol abuse, uncomplicated; F43.10 Post-traumatic stress disorder, unspecified; J44.9 Chronic obstructive pulmonary disease, unspecified; Z88.2 Allergy status to sulfonamides; Z88.8 Allergy status to other drugs, medicaments and biological substances; Z79.899 Other long term (current) drug therapy; F17.200 Nicotine dependence, unspecified, uncomplicated; M54.5 Low back pain

== ENCOUNTER → 2019-02-23 | Outpatient (CLI) | payer MEDICAID ==
[2019-02-23 15:23] LABS: IMMUNOGLOBULIN E 49.1 IU/ML (<100)
[2019-02-23 15:35] LABS: BASO # 0.1 10^3/uL (0.0-0.2); BASO % 1.2 % (0.0-1.0); EOS # 0.3 10^3/uL (0.0-0.50); EOS % 2.7 % (0.0-3.0); HEMATOCRIT 40.3 % (36.0-47.0); LYMPH # 3.9 10^3/uL (1.5-4.5); LYMPH % 41.7 % (24.0-44.0); MEAN CORPUSCULAR HEMOGLOBIN 30.4 pg (27.0-33.0); MEAN CORPUSCULAR HGB CONC 32.3 g/dl (32.0-36.5); MEAN CORPUSCULAR VOLUME 94.2 fl (80.0-96.0); MONO # 0.8 10^3/uL (0.0-0.8); MONO % 8.5 % (0.0-5.0); NEUTROPHILS # 4.2 10^3/uL (1.8-7.7); NEUTROPHILS % 45.6 % (36.0-66.0); PLATELET COUNT, AUTOMATED 344 10^3/uL (150-450); RED BLOOD COUNT 4.28 10^6/uL (4.00-5.40); WHITE BLOOD COUNT 9.3 10^3/uL (4.0-10.0)
== END ==
LOC: M SMT 10:29
PROVIDERS: ATTEND Internal Medicine Pulmonary Disease
DX: J45.40 Moderate persistent asthma, uncomplicated (principal)

== ENCOUNTER 2019-04-26 02:03 | Emergency (ER) | payer OTHER ==
[~2019-04-26] VITALS: Ht 152.4 cm; Wt 90.0 kg
[~2019-04-26 02:03] MED LIST changes: -TRAZ-160 PO; +TRAZ-252 PO
[2019-04-26] MEDS ORDERED: PAXI30TA11 PO (02:09)
[2019-04-26] MEDS ORDERED: LISI-538 PO (02:09)
[2019-04-26] MEDS ORDERED: ZITH250T PO (02:12)
[2019-04-26] MEDS ORDERED: PRED50TA PO (02:12)
[2019-04-26] MEDS ORDERED: KETOROLAC 60 MG/2 ML VIAL (J1885) IM ONE (03:15)
[2019-04-26] MEDS ORDERED: CLOT1CRE2 TOP (03:23)
[2019-04-26 03:27] VITALS: BP 144/72
== END 2019-04-26 03:32 | disposition home or self-care (01) ==
LOC: M ED 02:03
DX: B36.9 Superficial mycosis, unspecified (principal); L30.9 Dermatitis, unspecified; M25.50 Pain in unspecified joint; I10 Essential (primary) hypertension; J44.9 Chronic obstructive pulmonary disease, unspecified; G35 Multiple sclerosis; M19.90 Unspecified osteoarthritis, unspecified site; Z88.2 Allergy status to sulfonamides; Z88.6 Allergy status to analgesic agent; Z88.3 Allergy status to other anti-infective agents; Z79.899 Other long term (current) drug therapy; Z79.51 Long term (current) use of inhaled steroids; Z79.52 Long term (current) use of systemic steroids

== ENCOUNTER 2019-05-10 01:07 | Emergency (ER) | payer OTHER ==
[~2019-05-10] VITALS: Ht 152.4 cm; Wt 89.1 kg
[~2019-05-10 01:07] MED LIST changes: +CLOT1CRE2 TOP; +ZITH250T PO
[2019-05-10] MEDS ORDERED: QUET1TAB9 (01:14)
[2019-05-10] MEDS ORDERED: dexameTHASONE 20 MG/5 ML VIAL (J1100) IV ONE (01:45)
[2019-05-10] MEDS: IPRATROPIUM 0.5MG/ALBUTEROL 2.5MG INH SOL UD 3ML (DUONEB)(J7620) NEB SCH ×2 (02:06→03:22)
[2019-05-10 02:24] LABS: BASO # 0.1 10^3/uL (0.0-0.2); BASO % 0.5 % (0.0-1.0); EOS # 0.1 10^3/uL (0.0-0.50); EOS % 0.5 % (0.0-3.0); HEMATOCRIT 42.7 % (36.0-47.0); HEMOGLOBIN 13.9 g/dl (12.0-15.5); LYMPH # 2.4 10^3/uL (1.5-4.5); LYMPH % 21.3 % (24.0-44.0); MEAN CORPUSCULAR HEMOGLOBIN 30.6 pg (27.0-33.0); MEAN CORPUSCULAR HGB CONC 32.6 g/dl (32.0-36.5); MEAN CORPUSCULAR VOLUME 94.1 fl (80.0-96.0); MONO # 0.7 10^3/uL (0.0-0.8); MONO % 6.6 % (0.0-5.0); NEUTROPHILS # 7.9 10^3/uL (1.8-7.7); NEUTROPHILS % 70.7 % (36.0-66.0); PLATELET COUNT, AUTOMATED 303 10^3/uL (150-450); RED BLOOD COUNT 4.54 10^6/uL (4.00-5.40); WHITE BLOOD COUNT 11.1 10^3/uL (4.0-10.0)
[2019-05-10 02:33] LABS: INR 0.91
[2019-05-10 02:34] LABS: PARTIAL THROMBOPLASTIN TIME 26.4 SECONDS (25.0-38.4)
[2019-05-10 02:42] LABS: BLOOD UREA NITROGEN 15 MG/DL (7-18); CARBON DIOXIDE LEVEL 26 MEQ/L (21-32); CHLORIDE LEVEL 104 MEQ/L (98-107); CK-MB VALUE MASS < 1.0 NG/ML (<3.6); CPK CREATINE PHOSPHOKINASE 37 U/L (26-192); CREATININE FOR GFR 0.81 MG/DL (0.55-1.30); GLOMERULAR FILTRATION RATE > 60.0 (>51); GLUCOSE, FASTING 127 MG/DL (70-100); POTASSIUM SERUM 4.5 MEQ/L (3.5-5.1); SODIUM LEVEL 138 MEQ/L (136-145); TROPONIN I < 0.02 NG/ML (< 0.10)
[2019-05-10 03:01] VITALS: BP 158/104
[2019-05-10] MEDS ORDERED: PRED20TA PO (03:11)
--- NOTE | 2019-05-10 04:09 | REP ---
Clinical: Dyspnea . Comparison: 02/10/2019 of the . Findings: The mediastinum and cardiac silhouette are stable and within normal limits for portable technique. The lung ventura are clear without acute consolidation, effusion, or pneumothorax. Skeletal structures are intact. Impression: No acute cardiopulmonary process appreciated. Electronically Signed by Scooter Leija MD 05/10/2019 04:01 A
--- NOTE | 2019-05-10 16:46 | ECGEPIP ---
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
== END 2019-05-10 03:34 | disposition home or self-care (01) ==
LOC: M ED 01:07
DX: J44.9 Chronic obstructive pulmonary disease, unspecified (principal); F41.1 Generalized anxiety disorder; I10 Essential (primary) hypertension; F17.210 Nicotine dependence, cigarettes, uncomplicated; G35 Multiple sclerosis; G43.909 Migraine, unspecified, not intractable, without status migrainosus; Z79.51 Long term (current) use of inhaled steroids; Z79.52 Long term (current) use of systemic steroids; Z79.899 Other long term (current) drug therapy; Z88.0 Allergy status to penicillin; Z88.6 Allergy status to analgesic agent; Z88.8 Allergy status to other drugs, medicaments and biological substances
CPT/HCPCS: 71045; 80048; 82550; 82553; 85025; 85610; 85730; 93005; 93041; 94640; 96374; 99285; J1100

== ENCOUNTER 2019-06-18 02:13 | Emergency (ER) | payer OTHER ==
[~2019-06-18] VITALS: Ht 154.9 cm; Wt 90.9 kg
[~2019-06-18 02:13] MED LIST changes: +NICO2GUM52 PO; -NICO2GUM62 PO; +QUET200T2
[2019-06-18 02:42] LABS: BASO # 0.1 10^3/uL (0.0-0.2); BASO % 0.8 % (0.0-1.0); EOS # 0.2 10^3/uL (0.0-0.50); EOS % 2.3 % (0.0-3.0); HEMATOCRIT 42.3 % (36.0-47.0); HEMOGLOBIN 13.8 g/dl (12.0-15.5); LYMPH # 4.1 10^3/uL (1.5-4.5); MEAN CORPUSCULAR HEMOGLOBIN 30.6 pg (27.0-33.0); MEAN CORPUSCULAR HGB CONC 32.6 g/dl (32.0-36.5); MEAN CORPUSCULAR VOLUME 93.8 fl (80.0-96.0); NEUTROPHILS # 5.1 10^3/uL (1.8-7.7); NEUTROPHILS % 48.4 % (36.0-66.0); PLATELET COUNT, AUTOMATED 297 10^3/uL (150-450); RED BLOOD COUNT 4.51 10^6/uL (4.00-5.40); WHITE BLOOD COUNT 10.5 10^3/uL (4.0-10.0)
[2019-06-18 03:06] LABS: ALBUMIN 3.5 GM/DL (3.2-5.2); ALT/SGPT 15 U/L (12-78); BILIRUBIN,TOTAL 0.1 MG/DL (0.2-1.0); BLOOD UREA NITROGEN 15 MG/DL (7-18); CALCIUM LEVEL 8.5 MG/DL (8.5-10.1); CARBON DIOXIDE LEVEL 25 MEQ/L (21-32); CHLORIDE LEVEL 105 MEQ/L (98-107); CREATININE FOR GFR 0.53 MG/DL (0.55-1.30); GLOMERULAR FILTRATION RATE > 60.0 (>51); GLUCOSE, FASTING 106 MG/DL (70-100); POTASSIUM SERUM 3.9 MEQ/L (3.5-5.1); SODIUM LEVEL 138 MEQ/L (136-145); TOTAL PROTEIN 7.2 GM/DL (6.4-8.2)
[2019-06-18] MEDS ORDERED: ONDANSETRON 4MG/2ML VIAL (J2405) IV ONE (04:15)
[2019-06-18] MEDS ORDERED: MORPHINE 4 MG/ML 1ML VIAL/SYRINGE (J2270) IV PRN (04:15)
[2019-06-18] MEDS ORDERED: NS 1,000 ML IV ONE (04:30)
[2019-06-18] MEDS ORDERED: PROHANCE 279.3MG/ML 5ML VIAL (A9576) As Ordered ONE (05:57)
[2019-06-18] MEDS ORDERED: PROHANCE 279.3MG/ML 15ML VIAL (A9576) As Ordered ONE (05:57)
--- NOTE | 2019-06-18 07:21 | ECGEPIP ---
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
[2019-06-18 08:00] VITALS: BP 121/70
--- NOTE | 2019-06-18 08:06 | REPVR ---
EXAM: MR Head Without and With Contrast EXAM DATE/TIME: 06/18/2019 6:06 AM CLINICAL HISTORY: 53 years old, female; Weakness, extremity and weakness, facial; Patient HX: PT states HX of ms that effects left side, new onset right sided weakness and dizziness. ; Additional info: New right sided weakness, eval for ms flair TECHNIQUE: Imaging protocol: MR of the head without and with intravenous contrast. Contrast material: PROHANCE;Contrast volume: 19 ml;Contrast route: IV; COMPARISON: MRI-Brain W/O FOLL BY WITH 05/18/2018 11:24 AM FINDINGS: Brain: There are scattered foci of high signal abnormality in the periventricular white matter, franks radiata and centrum semiovale. These are best seen on the flair images. These foci may represent areas of gliosis, demyelination, and/or chronic ischemic change. Some of these lesions may represent demyelinating plaques in this patient with known multiple sclerosis. There is no abnormal enhancement. Ventricles: Normal. No ventriculomegaly. Bones/joints: Unremarkable. Soft tissues: Normal. Sinuses: There is mild sinus disease. Mastoid air cells: Normal as visualized. No mastoid effusion. Orbits: Unremarkable. IMPRESSION: There are scattered foci of high signal abnormality in the periventricular white matter, franks radiata and centrum semiovale. These are best seen on the flair images. These foci may represent areas of gliosis, demyelination, and/or chronic ischemic change. Some of these lesions may represent demyelinating plaques in this patient with known multiple sclerosis. There is no abnormal enhancement. Electronically signed by: Timi Boogie On 06/18/2019 08:06:09 AM
[2019-06-18] MEDS ORDERED: CYCL5TAB (08:12)
--- NOTE | 2019-06-20 20:58 | ED PDOC ---
Post-Departure Follow-Up renata mehta faxed formal report of mri brain for fu Rosetta Yeung MD Jun 20, 2019 20:58
== END 2019-06-18 08:26 | disposition home or self-care (01) ==
LOC: M ED 02:13
DX: R42 Dizziness and giddiness (principal); R20.2 Paresthesia of skin; I10 Essential (primary) hypertension; G35 Multiple sclerosis; F41.1 Generalized anxiety disorder; Z79.899 Other long term (current) drug therapy; Z88.1 Allergy status to other antibiotic agents; Z88.2 Allergy status to sulfonamides; Z88.8 Allergy status to other drugs, medicaments and biological substances; F17.210 Nicotine dependence, cigarettes, uncomplicated
CPT/HCPCS: 70553; 80053; 85025; 93005; 96374; 96375; 99285; A9576; J2270; J2405

== ENCOUNTER 2019-07-13 00:24 | Emergency (ER) | payer OTHER ==
[~2019-07-13] VITALS: Ht 152.4 cm; Wt 90.7 kg
[~2019-07-13 00:24] MED LIST changes: +CYCL5TAB
[2019-07-13] MEDS ORDERED: ACETAMINOPHEN TAB 650MG DOSE (2X325MG) PO ONE (01:00)
[2019-07-13 01:22] LABS: HEMATOCRIT 39.6 % (36.0-47.0); HEMOGLOBIN 13.1 g/dl (12.0-15.5); MEAN CORPUSCULAR HEMOGLOBIN 30.6 pg (27.0-33.0); MEAN CORPUSCULAR HGB CONC 33.1 g/dl (32.0-36.5); MEAN CORPUSCULAR VOLUME 92.5 fl (80.0-96.0); PLATELET COUNT, AUTOMATED 275 10^3/uL (150-450); RED BLOOD COUNT 4.28 10^6/uL (4.00-5.40); WHITE BLOOD COUNT 9.5 10^3/uL (4.0-10.0)
[2019-07-13] MEDS: IPRATROPIUM 0.5MG/ALBUTEROL 2.5MG INH SOL UD 3ML (DUONEB)(J7620) NEB PRN (01:24)
[2019-07-13 02:02] LABS: BLOOD UREA NITROGEN 10 MG/DL (7-18); CALCIUM LEVEL 8.5 MG/DL (8.5-10.1); CARBON DIOXIDE LEVEL 25 MEQ/L (21-32); CHLORIDE LEVEL 104 MEQ/L (98-107); GLOMERULAR FILTRATION RATE > 60.0 (>51); GLUCOSE, FASTING 100 MG/DL (70-100); NT-PRO BNP 84 PG/ML (<125); POTASSIUM SERUM 4.4 MEQ/L (3.5-5.1); SODIUM LEVEL 141 MEQ/L (136-145)
[2019-07-13] MEDS ORDERED: PRED20TA PO (02:19)
[2019-07-13 02:27] VITALS: BP 117/60
--- NOTE | 2019-07-13 02:48 | REPVR ---
EXAM: CT Head Without Contrast EXAM DATE/TIME: 07/13/19 (1:48am) CLINICAL HISTORY: 54 year old female. Recent fall. Dizziness. Initial encounter. Concussion / head injury. TECHNIQUE: Imaging protocol: Computed tomography of the head without contrast. Radiation optimization: All CT scans at this facility use at least one of these dose optimization techniques: automated exposure control; mA and/or kV adjustment per patient size (includes targeted exams where dose is matched to clinical indication); or iterative reconstruction. COMPARISON: CT HEAD of 09/27/18 FINDINGS: Brain: Unremarkable. No acute hemorrhage. Unremarkable white matter. No mass effect. Ventricles: Normal. No ventriculomegaly. Bones/joints: Unremarkable. No acute fracture. Sinuses: Visualized sinuses are unremarkable. No air-fluid levels. Mastoid air cells: Visualized mastoid air cells are well aerated. Soft tissues: Unremarkable. IMPRESSION: No acute intracranial pathology is appreciated. Electronically signed by: Marilou Toth On 07/13/2019 02:47:52 AM
--- NOTE | 2019-07-13 08:55 | REP ---
Chest x-ray: Two views. History: Wheezing. Comparison study May 10, 2019. Findings: There are clips in right upper quadrant consistent with previous cholecystectomy. The lungs are well inflated and free of infiltrate. EKG electrodes are seen. Pleural angles are sharp. Heart size is normal. No significant bony abnormality. Pulmonary vasculature is not increased. Impression: No acute disease. Electronically Signed by Aki Logan MD 07/13/2019 08:46 A
== END 2019-07-13 02:43 | disposition home or self-care (01) ==
LOC: M ED 00:24
DX: J42 Unspecified chronic bronchitis (principal); R09.81 Nasal congestion; R11.2 Nausea with vomiting, unspecified; R42 Dizziness and giddiness; E78.5 Hyperlipidemia, unspecified; G43.909 Migraine, unspecified, not intractable, without status migrainosus; G35 Multiple sclerosis; H46.9 Unspecified optic neuritis; I10 Essential (primary) hypertension; M19.90 Unspecified osteoarthritis, unspecified site; F17.200 Nicotine dependence, unspecified, uncomplicated; F32.9 Major depressive disorder, single episode, unspecified; F41.9 Anxiety disorder, unspecified; Z79.51 Long term (current) use of inhaled steroids; Z79.899 Other long term (current) drug therapy; Z86.79 Personal history of other diseases of the circulatory system; Z88.2 Allergy status to sulfonamides; Z88.8 Allergy status to other drugs, medicaments and biological substances

== ENCOUNTER 2019-08-11 20:03 | Emergency (ER) | payer OTHER ==
[~2019-08-11] VITALS: Ht 152.4 cm; Wt 89.5 kg
[~2019-08-11 20:03] MED LIST changes: -AZIT500T2 PO; +AZIT500T5 PO
[2019-08-11] MEDS ORDERED: ONDANSETRON 4MG/2ML VIAL (J2405) IV ONE (21:00)
[2019-08-11] MEDS ORDERED: NS 1,000 ML IV ONE (21:00)
[2019-08-11] MEDS ORDERED: IPRATROPIUM 0.5MG/ALBUTEROL 2.5MG INH SOL UD 3ML (DUONEB)(J7620) NEB ONE (21:00)
[2019-08-11 21:21] LABS: BASO # 0.1 10^3/uL (0.0-0.2); BASO % 0.9 % (0.0-1.0); EOS # 0.2 10^3/uL (0.0-0.5); EOS % 1.9 % (0.0-3.0); HEMOGLOBIN 12.9 g/dl (12.0-15.5); LYMPH # 2.4 10^3/uL (1.5-5.0); LYMPH % 22.5 % (24.0-44.0); MEAN CORPUSCULAR HEMOGLOBIN 30.2 pg (27.0-33.0); MEAN CORPUSCULAR HGB CONC 32.3 g/dl (32.0-36.5); MEAN CORPUSCULAR VOLUME 93.7 fl (80.0-96.0); MONO # 0.6 10^3/uL (0.0-0.8); MONO % 5.5 % (0.0-5.0); NEUTROPHILS # 7.3 10^3/uL (1.5-8.5); NEUTROPHILS % 68.9 % (36.0-66.0); PLATELET COUNT, AUTOMATED 305 10^3/uL (150-450); RED BLOOD COUNT 4.27 10^6/uL (4.00-5.40); WHITE BLOOD COUNT 10.5 10^3/uL (4.0-10.0)
[2019-08-11 21:43] LABS: ALBUMIN 3.7 GM/DL (3.2-5.2); ALT/SGPT 16 U/L (12-78); BILIRUBIN,DIRECT < 0.1 MG/DL (0.0-0.2); BILIRUBIN,TOTAL 0.3 MG/DL (0.2-1.0); BLOOD UREA NITROGEN 8 MG/DL (7-18); CALCIUM LEVEL 9.3 MG/DL (8.5-10.1); CARBON DIOXIDE LEVEL 27 MEQ/L (21-32); CHLORIDE LEVEL 104 MEQ/L (98-107); CREATININE FOR GFR 0.53 MG/DL (0.55-1.30); GLOMERULAR FILTRATION RATE > 60.0 (>51); GLUCOSE, FASTING 115 MG/DL (70-100); POTASSIUM SERUM 4.3 MEQ/L (3.5-5.1); SODIUM LEVEL 138 MEQ/L (136-145); TOTAL PROTEIN 7.5 GM/DL (6.4-8.2)
[2019-08-11 21:48] LABS: INFLUENZA A AMPLIFICATION NEGATIVE (NEGATIVE); INFLUENZA B AMPLIFICATION NEGATIVE (NEGATIVE)
[2019-08-11] MEDS ORDERED: ONDA4TAB6 PO (23:22)
[2019-08-12 00:10] VITALS: BP 134/77
--- NOTE | 2019-08-12 08:24 | REP ---
PA and lateral chest: Comparison is 07/13/2019. The lung ventura are clear. The cardiac size is normal. The timmy, mediastinum, and skeletal structures are unremarkable. Impression: Negative PA and lateral chest. . There is no interval change. Electronically Signed by Mk Pierce MD 08/12/2019 08:15 A
== END 2019-08-12 00:10 | disposition home or self-care (01) ==
LOC: M ED 20:03
DX: J06.9 Acute upper respiratory infection, unspecified (principal); B34.9 Viral infection, unspecified; I10 Essential (primary) hypertension; J44.9 Chronic obstructive pulmonary disease, unspecified; F31.9 Bipolar disorder, unspecified; F17.200 Nicotine dependence, unspecified, uncomplicated; Z79.899 Other long term (current) drug therapy; Z88.2 Allergy status to sulfonamides; Z88.8 Allergy status to other drugs, medicaments and biological substances; Z88.6 Allergy status to analgesic agent
CPT/HCPCS: 71046; 80048; 80076; 83605; 85025; 87040; 87502; 94640; 96361; 96374; 99284; J2405

== ENCOUNTER 2019-09-04 09:23 | Emergency (ER) | payer MEDICAID, OTHER ==
[~2019-09-04] VITALS: Ht 152.4 cm; Wt 89.5 kg
[~2019-09-04 09:23] MED LIST changes: +ONDA4TAB6 PO
[2019-09-04] MEDS ORDERED: methylPREDNISolone INJ 125 MG/2 ML VIAL (J2930) IV ONE (09:45)
[2019-09-04] MEDS ORDERED: FAMOTIDINE INJ 20MG/2ML VIAL (S0028) IVP ONE (09:45)
[2019-09-04] MEDS ORDERED: NS 1,000 ML IV ONE (09:45)
[2019-09-04] MEDS ORDERED: diphenhydrAMINE INJ 50MG/ML VIAL (J1200) IV ONE (09:45)
[2019-09-04 10:18] LABS: HEMATOCRIT 43.8 % (36.0-47.0); HEMOGLOBIN 14.2 g/dl (12.0-15.5); MEAN CORPUSCULAR HGB CONC 32.4 g/dl (32.0-36.5); MEAN CORPUSCULAR VOLUME 92.4 fl (80.0-96.0); PLATELET COUNT, AUTOMATED 280 10^3/uL (150-450); RED BLOOD COUNT 4.74 10^6/uL (4.00-5.40); WHITE BLOOD COUNT 9.7 10^3/uL (4.0-10.0)
[2019-09-04 10:22] LABS: ERYTHROCYTE SEDIMENTATION RATE 26 mm/hr (0-30)
--- NOTE | 2019-09-04 10:23 | REP ---
Clinical: Cough. Comparison: 08/11/2019. Findings: Mediastinum and cardiac silhouette are normal. Linear fibroatelectatic changes in the left lower lung zone are similar to prior examination. No focal consolidation, obvious effusion or pneumothorax. Skeletal structures intact. Impression: Chronic changes. No focal consolidation or effusion. Electronically Signed by Scooter Leija MD 09/04/2019 10:14 A
[2019-09-04 10:24] LABS: ALBUMIN 3.6 GM/DL (3.2-5.2); ALT/SGPT 16 U/L (12-78); BILIRUBIN,DIRECT < 0.1 MG/DL (0.0-0.2); BILIRUBIN,TOTAL 0.2 MG/DL (0.2-1.0); BLOOD UREA NITROGEN 8 MG/DL (7-18); C REACTIVE PROTEIN QUANTITATIV < 0.30 MG/DL (0.00-0.30); CALCIUM LEVEL 8.6 MG/DL (8.5-10.1); CARBON DIOXIDE LEVEL 25 MEQ/L (21-32); CHLORIDE LEVEL 107 MEQ/L (98-107); CREATININE FOR GFR 0.51 MG/DL (0.55-1.30); GLOMERULAR FILTRATION RATE > 60.0 (>51); GLUCOSE, FASTING 116 MG/DL (70-100); POTASSIUM SERUM 3.8 MEQ/L (3.5-5.1); SODIUM LEVEL 137 MEQ/L (136-145); TOTAL PROTEIN 7.5 GM/DL (6.4-8.2)
[2019-09-04 10:50] LABS: ANISOCYTOSIS 1+; ATYPICAL LYMPH 2 % (0-5); EOSINOPHILS 2 % (0-3); LYMPHOCYTES 47 % (16-44); MONOCYTES 6 % (0-5); NEUTROPHILS 43 % (28-66); PLATELET ESTIMATE NORMAL (NORMAL)
[2019-09-04] MEDS ORDERED: ACETAMINOPHEN 325 MG TAB PO ONE (11:15)
[2019-09-04] MEDS ORDERED: CETI10TA4 PO (11:43)
[2019-09-04] MEDS ORDERED: PRED10TA2 PO (11:43)
[2019-09-04] MEDS ORDERED: DIPH25CA32 PO (11:43)
[2019-09-04 11:57] VITALS: BP 143/72
[2019-09-04] MEDS ORDERED: ONDA4TAB6 PO (12:25)
== END 2019-09-04 12:30 | disposition home or self-care (01) ==
LOC: EDBD 09:23 → M ED 09:23
DX: S10.86XA Insect bite of other specified part of neck, initial encounter (principal); T78.40XA Allergy, unspecified, initial encounter; W57.XXXA Bitten or stung by nonvenomous insect and other nonvenomous arthropods, initial encounter; Y92.099 Unspecified place in other non-institutional residence as the place of occurrence of the external cause; Y93.9 Activity, unspecified; Y99.9 Unspecified external cause status; F17.200 Nicotine dependence, unspecified, uncomplicated; Z79.899 Other long term (current) drug therapy; Z88.6 Allergy status to analgesic agent; Z88.2 Allergy status to sulfonamides; Z88.8 Allergy status to other drugs, medicaments and biological substances
CPT/HCPCS: 71045; 80048; 80076; 85025; 85652; 86140; 96374; 96375; 99284; J1200; J2930

== ENCOUNTER 2019-09-13 21:13 | Emergency (ER) | payer MEDICAID, OTHER ==
[~2019-09-13] VITALS: Ht 152.4 cm; Wt 87.7 kg
[~2019-09-13 21:13] MED LIST changes: +CETI10TA4 PO; +DIPH25CA32 PO
[2019-09-13 21:20] VITALS: BP 136/81
[2019-09-13] MEDS ORDERED: LIDOCAINE 2% W/ EPINEPHRINE 1.7 ML DENTAL INJ SM ONE (21:45)
[2019-09-13] MEDS ORDERED: AUGM875T28 PO (22:01)
[2019-09-13] MEDS ORDERED: AUGMENTIN 875 MG TAB PO ONE (22:15)
== END 2019-09-13 22:19 | disposition home or self-care (01) ==
LOC: M ED 21:13
DX: K02.9 Dental caries, unspecified (principal); R68.84 Jaw pain; G35 Multiple sclerosis; I11.9 Hypertensive heart disease without heart failure; K57.32 Diverticulitis of large intestine without perforation or abscess without bleeding; J44.9 Chronic obstructive pulmonary disease, unspecified; K21.9 Gastro-esophageal reflux disease without esophagitis; F31.9 Bipolar disorder, unspecified; Z86.19 Personal history of other infectious and parasitic diseases; F17.210 Nicotine dependence, cigarettes, uncomplicated; Z88.1 Allergy status to other antibiotic agents; Z88.2 Allergy status to sulfonamides; Z88.6 Allergy status to analgesic agent; Z79.51 Long term (current) use of inhaled steroids; Z79.84 Long term (current) use of oral hypoglycemic drugs; Z79.899 Other long term (current) drug therapy

== ENCOUNTER 2019-09-19 08:47 | Emergency (ER) | payer MEDICAID ==
[~2019-09-19] VITALS: Ht 152.4 cm; Wt 89.5 kg
[2019-09-19] MEDS ORDERED: ISOVUE-370 76% 100ML VIAL (Q9967) As Ordered ONE (09:54)
[2019-09-19 09:55] LABS: BASO # 0.1 10^3/uL (0.0-0.2); BASO % 0.7 % (0.0-1.0); EOS # 0.3 10^3/uL (0.0-0.5); EOS % 2.6 % (0.0-3.0); HEMATOCRIT 43.2 % (36.0-47.0); HEMOGLOBIN 13.7 g/dl (12.0-15.5); LYMPH # 3.6 10^3/uL (1.5-5.0); LYMPH % 35.7 % (24.0-44.0); MEAN CORPUSCULAR HEMOGLOBIN 29.8 pg (27.0-33.0); MEAN CORPUSCULAR HGB CONC 31.7 g/dl (32.0-36.5); MEAN CORPUSCULAR VOLUME 93.9 fl (80.0-96.0); MONO # 0.9 10^3/uL (0.0-0.8); MONO % 9.3 % (0.0-5.0); NEUTROPHILS # 5.2 10^3/uL (1.5-8.5); NEUTROPHILS % 51.3 % (36.0-66.0); PLATELET COUNT, AUTOMATED 303 10^3/uL (150-450); WHITE BLOOD COUNT 10.2 10^3/uL (4.0-10.0)
--- NOTE | 2019-09-19 10:41 | REP ---
Soft-tissue CT study of the neck with IV contrast: History: Persistent dental pain. Rule out abscess left side. No comparison imaging. CT contrast dose: 75 ml of intravenous Isovue 370. CT findings: Digital preliminary anvilsmith views are unremarkable. The visualized intracranial and intraorbital soft tissues are unremarkable. The frontal, ethmoid, sphenoid, mastoid and maxillary sinuses are clear. No bony destructive lesion is seen in the mandible or maxilla. The parotid and submandibular glands are normal in size and symmetric. Thyroid lobes are normal in appearance. There is one small low density nodule in the right lobe, 6 mm in diameter. No glottic or subglottic airway lesion is seen. Epiglottis is unremarkable. Floor of mouth structures appear intact. No perimandibular or erendira maxillary soft tissue fluid collection is seen to suggest an abscess. Tonsillar and peritonsillar soft tissues are unremarkable and symmetric. No significant vascular abnormality is seen. The internal carotid arteries are bilaterally somewhat tortuous. No inflammatory changes are seen in the platysma. There is no evidence of mass or adenopathy. The lung apices are clear. Impression: No neck mass, adenopathy or abnormal fluid collection is seen. Electronically Signed by Aki Logan MD 09/19/2019 12:20 P
[2019-09-19] MEDS ORDERED: ACETAMINOPHEN TAB 650MG DOSE (2X325MG) PO ONE (10:45)
[2019-09-19] MEDS ORDERED: NORCO, ANEXSIA 5/325MG TABLET (HYDROcodone/ACETAMINOPHEN) PO ONE (10:45)
[2019-09-19 10:58] VITALS: BP 125/75
== END 2019-09-19 11:03 | disposition home or self-care (01) ==
LOC: M ED 08:47
DX: K02.9 Dental caries, unspecified (principal); K08.89 Other specified disorders of teeth and supporting structures; I10 Essential (primary) hypertension; J44.9 Chronic obstructive pulmonary disease, unspecified; Z88.2 Allergy status to sulfonamides; Z88.8 Allergy status to other drugs, medicaments and biological substances; F17.218 Nicotine dependence, cigarettes, with other nicotine-induced disorders
CPT/HCPCS: 70491; 80047; 85025; 99284; Q9967

== ENCOUNTER 2019-10-08 10:08 | Emergency (ER) | payer MEDICAID ==
[~2019-10-08] VITALS: Ht 152.4 cm; Wt 90.2 kg
[~2019-10-08 10:08] MED LIST changes: +CLON0.5T2 PO; -CLON0.5T8 PO; -LAMO150T2; -LAMO150T2 PO; +LAMO150T3; +LAMO150T3 PO
--- NOTE | 2019-10-08 11:41 | REP ---
Clinical: Shortness of breath . History of asthma. Comparison: 09/04/2019 . Technique: PA and lateral. Findings: The mediastinum and cardiac silhouette are normal. The lung ventura are clear and without acute consolidation, effusion, or pneumothorax. The skeletal structures are intact and normal. Impression: 1. No acute cardiopulmonary process. Electronically Signed by Scooter Leija MD 10/08/2019 11:33 A
[2019-10-08 11:58] VITALS: BP 138/58
[2019-10-08] MEDS ORDERED: predniSONE 20 MG TAB PO ONE (12:00)
[2019-10-08] MEDS ORDERED: PRED20TA PO (12:03)
--- NOTE | 2019-10-08 20:05 | ECGEPIP ---
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
== END 2019-10-08 12:15 | disposition home or self-care (01) ==
LOC: M ED 10:08
DX: J45.909 Unspecified asthma, uncomplicated (principal); J44.9 Chronic obstructive pulmonary disease, unspecified; F31.9 Bipolar disorder, unspecified; G43.909 Migraine, unspecified, not intractable, without status migrainosus; G35 Multiple sclerosis; I10 Essential (primary) hypertension; K21.9 Gastro-esophageal reflux disease without esophagitis; F41.9 Anxiety disorder, unspecified; Z88.2 Allergy status to sulfonamides; Z88.5 Allergy status to narcotic agent; Z88.8 Allergy status to other drugs, medicaments and biological substances; Z79.899 Other long term (current) drug therapy

== ENCOUNTER 2019-10-14 09:03 | Emergency (ER) | payer MEDICAID ==
[~2019-10-14] VITALS: Ht 152.4 cm; Wt 86.8 kg
[2019-10-14] MEDS ORDERED: ONDANSETRON 4 MG ORAL DISINTEGRATING TAB (Q0162 PER 1MG) PO ONE (10:45)
--- NOTE | 2019-10-14 11:08 | REP ---
Pelvis right hip: Three views. History: Injury in a fall. Findings: AP view of the pelvis demonstrates sacralization of the transverse process of L5 on the left. There is a bone island in the left femoral neck. The bony pelvic ring is intact. No pelvic or hip fracture is seen. No sacral fractures noted. Impression: No fracture identified. Electronically Signed by Aki Logan MD 10/14/2019 11:00 A
--- NOTE | 2019-10-14 11:33 | REP ---
CT BRAIN WITHOUT CONTRAST: HISTORY: Injury in a fall. Nausea vomiting. Comparison head CT study July 13, 2019. CT FINDINGS: Preliminary digital furnace packer radiograph is unremarkable. On bone window settings there is no evidence of skull fracture. No significant scalp hematoma is seen. Some vascular calcification is seen in the distal carotid arteries. Visualized paranasal sinuses are clear. On soft tissue window settings, lateral, third, fourth ventricles are normal in size and position. Ann-white differentiation pattern is normal above below the tentorium. There is no evidence of intracranial hemorrhage. No mass, infarct, extra-axial fluid collection, or midline shift is seen. IMPRESSION: Vascular calcification. Otherwise negative noncontrast head CT. No evidence of skull fracture or intracranial injury. Electronically Signed by Aki Logan MD 10/14/2019 01:09 P
[2019-10-14] MEDS ORDERED: ONDA4TAB6 PO (11:47)
[2019-10-14 11:48] VITALS: BP 158/98
== END 2019-10-14 11:53 | disposition home or self-care (01) ==
LOC: M ED 09:03
DX: S06.0X0A Concussion without loss of consciousness, initial encounter (principal); S70.01XA Contusion of right hip, initial encounter; W01.190A Fall on same level from slipping, tripping and stumbling with subsequent striking against furniture, initial encounter; Y92.013 Bedroom of single-family (private) house as the place of occurrence of the external cause; Y93.9 Activity, unspecified; E78.5 Hyperlipidemia, unspecified; F17.200 Nicotine dependence, unspecified, uncomplicated; F32.9 Major depressive disorder, single episode, unspecified; F41.9 Anxiety disorder, unspecified; G35 Multiple sclerosis; H46.9 Unspecified optic neuritis; I10 Essential (primary) hypertension; J44.9 Chronic obstructive pulmonary disease, unspecified; J45.909 Unspecified asthma, uncomplicated; K21.9 Gastro-esophageal reflux disease without esophagitis; M54.9 Dorsalgia, unspecified; Z79.51 Long term (current) use of inhaled steroids; Z79.52 Long term (current) use of systemic steroids; Z79.899 Other long term (current) drug therapy; Z86.19 Personal history of other infectious and parasitic diseases; Z88.2 Allergy status to sulfonamides; Z88.6 Allergy status to analgesic agent; Z88.8 Allergy status to other drugs, medicaments and biological substances
CPT/HCPCS: 70450; 73502; 99283; Q0162

== ENCOUNTER 2019-10-29 23:55 | Emergency (ER) | payer MEDICAID ==
[~2019-10-29] VITALS: Ht 152.4 cm; Wt 86.8 kg
[2019-10-30 01:43] LABS: HEMATOCRIT 38.5 % (36.0-47.0); MEAN CORPUSCULAR HEMOGLOBIN 29.5 pg (27.0-33.0); MEAN CORPUSCULAR HGB CONC 31.2 g/dl (32.0-36.5); MEAN CORPUSCULAR VOLUME 94.6 fl (80.0-96.0); PLATELET COUNT, AUTOMATED 279 10^3/uL (150-450); RED BLOOD COUNT 4.07 10^6/uL (4.00-5.40); VENOUS BASE EXCESS 0.5 (-2.0-2.0); VENOUS HCO3 25.2 MEQ/L (23.0-27.0); VENOUS O2 SATURATION 98.4 % (60.0-80.0); VENOUS PARTIAL PRESSURE CO2 40.8 mmHg (38.0-50.0); VENOUS PARTIAL PRESSURE O2 136.1 mmHg (30.0-50.0); VENOUS PH 7.408 UNITS (7.330-7.430); VENOUS STANDARD HCO3 24.9 MEQ/L; VENOUS TOTAL CO2 26.4 MEQ/L (24.0-28.0)
[2019-10-30] MEDS ORDERED: ONDANSETRON 4MG/2ML VIAL (J2405) IV ONE (01:45)
[2019-10-30 01:56] LABS: WHITE BLOOD COUNT 13.1 10^3/uL (4.0-10.0)
[2019-10-30 02:10] LABS: BLOOD UREA NITROGEN 15 MG/DL (7-18); CALCIUM LEVEL 8.5 MG/DL (8.5-10.1); CARBON DIOXIDE LEVEL 26 MEQ/L (21-32); CHLORIDE LEVEL 108 MEQ/L (98-107); CREATININE FOR GFR 0.54 MG/DL (0.55-1.30); GLOMERULAR FILTRATION RATE > 60.0 (>51); GLUCOSE, FASTING 112 MG/DL (70-100); NT-PRO BNP 231 PG/ML (<125); POTASSIUM SERUM 3.8 MEQ/L (3.5-5.1); SODIUM LEVEL 140 MEQ/L (136-145)
[2019-10-30 02:11] LABS: ATYPICAL LYMPH 3 % (0-5); BASOPHILS 1 % (0-1); LYMPHOCYTES 54 % (16-44); MONOCYTES 6 % (0-5); NEUTROPHILS 36 % (28-66); PLATELET ESTIMATE NORMAL (NORMAL)
[2019-10-30] MEDS ORDERED: ONDA4TAB6 PO (03:25)
[2019-10-30] MEDS ORDERED: TESS100C PO (03:25)
[2019-10-30 03:35] VITALS: BP 112/64
--- NOTE | 2019-10-30 07:29 | REP ---
Clinical: Shortness of breath . Comparison: 10/08/2019 . Technique: PA and lateral. Findings: The mediastinum and cardiac silhouette are normal. The lung ventura are clear and without acute consolidation, effusion, or pneumothorax. The skeletal structures are intact and normal. Impression: 1. No acute cardiopulmonary process. Electronically Signed by Scooter Leija MD 10/30/2019 07:21 A
--- NOTE | 2019-10-31 15:25 | ECGEPIP ---
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
== END 2019-10-30 03:37 | disposition home or self-care (01) ==
LOC: M ED 23:55
DX: J06.9 Acute upper respiratory infection, unspecified (principal); B34.9 Viral infection, unspecified; R11.2 Nausea with vomiting, unspecified; J44.9 Chronic obstructive pulmonary disease, unspecified; F17.210 Nicotine dependence, cigarettes, uncomplicated; Z88.6 Allergy status to analgesic agent; Z88.2 Allergy status to sulfonamides; Z79.51 Long term (current) use of inhaled steroids; Z79.84 Long term (current) use of oral hypoglycemic drugs; Z79.899 Other long term (current) drug therapy
CPT/HCPCS: 36415; 71046; 80048; 82803; 83605; 83880; 85025; 87040; 87486; 87581; 87633; 87798; 93005; 93041; 94760; 96374; 99285; J2405

== ENCOUNTER 2020-01-05 00:33 | Emergency (ER) | payer MEDICAID ==
[~2020-01-05] VITALS: Ht 152.4 cm; Wt 88.0 kg
[~2020-01-05 00:33] MED LIST changes: -NICO2GUM52 PO; +NICO2GUM54 PO
[2020-01-05] MEDS ORDERED: ONDANSETRON 4MG/2ML VIAL (J2405) As Ordered ONE (00:58)
[2020-01-05 01:13] LABS: BASO # 0.1 10^3/uL (0.0-0.2); BASO % 0.7 % (0.0-1.0); EOS # 0.3 10^3/uL (0.0-0.5); EOS % 3.5 % (0.0-3.0); HEMOGLOBIN 12.9 g/dl (12.0-15.5); LYMPH # 3.5 10^3/uL (1.5-5.0); LYMPH % 43.6 % (24.0-44.0); MEAN CORPUSCULAR HEMOGLOBIN 30.2 pg (27.0-33.0); MEAN CORPUSCULAR HGB CONC 32.3 g/dl (32.0-36.5); MEAN CORPUSCULAR VOLUME 93.7 fl (80.0-96.0); MONO # 0.7 10^3/uL (0.0-0.8); MONO % 8.3 % (0.0-5.0); NEUTROPHILS # 3.5 10^3/uL (1.5-8.5); NEUTROPHILS % 43.5 % (36.0-66.0); PLATELET COUNT, AUTOMATED 252 10^3/uL (150-450); RED BLOOD COUNT 4.27 10^6/uL (4.00-5.40); WHITE BLOOD COUNT 8.1 10^3/uL (4.0-10.0)
[2020-01-05] MEDS ORDERED: ONDANSETRON 4MG/2ML VIAL (J2405) IV ONE (01:15)
[2020-01-05 01:44] LABS: APPEARANCE, URINE CLEAR (CLEAR); BACTERIA, URINE AUTO 1+ (NEGATIVE); BILIRUBIN, URINE AUTO NEGATIVE (NEGATIVE); BLOOD, URINE BLOOD NEGATIVE (NEGATIVE); COLOR, URINE STRAW (YELLOW); GLUCOSE, URINE (UA) AUTO NEGATIVE (NEGATIVE); KETONE, URINE AUTO NEGATIVE (NEGATIVE); LEUKOCYTE ESTERASE, URINE AUTO NEGATIVE (NEGATIVE); NITRITE, URINE AUTO NEGATIVE (NEGATIVE); PROTEIN, URINE AUTO NEGATIVE (NEGATIVE); RBC, URINE AUTO 1 /HPF (0-3); SPECIFIC GRAVITY URINE AUTO 1.002 (1.002-1.035); SQUAMOUS EPITHELIAL CELL UR AU 2 /HPF (0-6); UROBILINOGEN, URINE AUTO 0.2 mg/dL (0.0-2.0); WBC, URINE AUTO 0 /HPF (0-3)
[2020-01-05 01:53] LABS: BLOOD UREA NITROGEN 10 MG/DL (7-18); CALCIUM LEVEL 8.5 MG/DL (8.5-10.1); CARBON DIOXIDE LEVEL 27 MEQ/L (21-32); CHLORIDE LEVEL 108 MEQ/L (98-107); CK-MB VALUE MASS < 1.0 NG/ML (<3.6); CPK CREATINE PHOSPHOKINASE 50 U/L (26-192); CREATININE FOR GFR 0.56 MG/DL (0.55-1.30); GLOMERULAR FILTRATION RATE > 60.0 (>51); GLUCOSE, FASTING 122 MG/DL (70-100); SODIUM LEVEL 139 MEQ/L (136-145); TROPONIN I < 0.02 NG/ML (< 0.10)
[2020-01-05] MEDS ORDERED: NS 1,000 ML IV STA (02:41)
[2020-01-05 03:02] LABS: ALBUMIN 3.2 GM/DL (3.2-5.2); ALT/SGPT 25 U/L (12-78); BILIRUBIN,DIRECT < 0.1 MG/DL (0.0-0.2); BILIRUBIN,TOTAL 0.2 MG/DL (0.2-1.0); LIPASE 133 U/L (73-393); TOTAL PROTEIN 6.8 GM/DL (6.4-8.2)
[2020-01-05 03:25] LABS: INFLUENZA A AMPLIFICATION NEGATIVE (NEGATIVE); INFLUENZA B AMPLIFICATION NEGATIVE (NEGATIVE)
[2020-01-05 03:30] VITALS: BP 126/80
[2020-01-05] MEDS ORDERED: REGL10TA6 PO (03:41)
[2020-01-05] MEDS ORDERED: ZOFR8TAB24 PO (03:59)
--- NOTE | 2020-01-05 08:26 | REP ---
Head CT without contrast: Repeat dictation. History: Facial numbness. History of MS. Preliminary report is provided at time of exam by virtual radiology. Comparison study: Comparison study October 14, 2019. CT findings: Bone window settings demonstrate an intact bony calvarium. There is no evidence of skull fracture or incidental bony calvarial lesion. There is minimal vascular calcification in the right internal carotid artery. The visualized paranasal sinuses appear clear. No intraorbital abnormality is seen. On soft tissue window setting images; the lateral, third, and fourth ventricles are normal in size and position. Ann-white differentiation pattern is normal above and below the tentorium. There are is no evidence of intracranial hemorrhage. No mass, edema, infarction, or midline shift is seen. No extra-axial fluid collection is appreciated. Impression: Negative noncontrast head CT. Electronically Signed by Aki Logan MD 01/05/2020 08:17 A
--- NOTE | 2020-01-05 09:26 | REP ---
Portable chest x-ray: Single view. History: Chest pain. Comparison chest x-ray: October 30, 2019. Findings: Monitoring electrodes overlie the chest. Lungs are well inflated and clear. The pleural angles are sharp. Heart size is normal. Pulmonary vasculature is not increased. No significant bony abnormality. Impression: No active disease. Electronically Signed by Aki Logan MD 01/05/2020 09:17 A
--- NOTE | 2020-01-06 06:46 | ECGEPIP ---
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
== END 2020-01-05 04:07 | disposition home or self-care (01) ==
LOC: M ED 00:33
DX: R11.10 Vomiting, unspecified (principal); I10 Essential (primary) hypertension; G35 Multiple sclerosis; K21.9 Gastro-esophageal reflux disease without esophagitis; J44.9 Chronic obstructive pulmonary disease, unspecified; F41.9 Anxiety disorder, unspecified; F17.210 Nicotine dependence, cigarettes, uncomplicated; Z88.2 Allergy status to sulfonamides; Z88.6 Allergy status to analgesic agent; Z88.8 Allergy status to other drugs, medicaments and biological substances; Z79.51 Long term (current) use of inhaled steroids; Z79.84 Long term (current) use of oral hypoglycemic drugs; Z79.899 Other long term (current) drug therapy
CPT/HCPCS: 70450; 71045; 80048; 80076; 81001; 82550; 82553; 83690; 85025; 87502; 93005; 93041; 94760; 96361; 96374; 99285; J2405

== ENCOUNTER 2020-02-27 12:07 | Inpatient (IN) | payer MEDICAID ==
[~2020-02-27] VITALS: Ht 152.4 cm; Wt 84.4 kg
[~2020-02-27 12:07] MED LIST changes: +CYCL-707 PO; -CYCL10TA PO; -QUET200T2; +QUET200T2 PO; +REGL10TA6 PO; +ZOFR8TAB24 PO
[2020-02-27] MEDS ORDERED: MUCI600T31 PO ×2 (12:12→14:50)
[2020-02-27] MEDS ORDERED: methylPREDNISolone INJ 125 MG/2 ML VIAL (J2930) IV ONE (12:30)
[2020-02-27] MEDS: COMBIVENT RESPIMAT 100-20MCG INHALER 4GM INH PRN ×3 (12:45→13:49)
[2020-02-27] MEDS ORDERED: MAGNESIUM SULFATE 1GM/100ML D5W BAG (10MG/ML) As Ordered ONE (13:28)
[2020-02-27 13:31] LABS: BASO # 0.1 10^3/uL (0.0-0.2); BASO % 1.7 % (0.0-1.0); EOS # 0.3 10^3/uL (0.0-0.5); EOS % 3.3 % (0.0-3.0); HEMATOCRIT 42.7 % (36.0-47.0); HEMOGLOBIN 14.1 g/dl (12.0-15.5); LYMPH # 3.2 10^3/uL (1.5-5.0); LYMPH % 41.9 % (24.0-44.0); MEAN CORPUSCULAR HEMOGLOBIN 29.9 pg (27.0-33.0); MEAN CORPUSCULAR VOLUME 90.5 fl (80.0-96.0); MONO # 0.7 10^3/uL (0.0-0.8); NEUTROPHILS # 3.4 10^3/uL (1.5-8.5); NEUTROPHILS % 43.8 % (36.0-66.0); PLATELET COUNT, AUTOMATED 304 10^3/uL (150-450); RED BLOOD COUNT 4.72 10^6/uL (4.00-5.40); WHITE BLOOD COUNT 7.7 10^3/uL (4.0-10.0)
[2020-02-27] MEDS: MAG SULF 1GM/100ML (MAG RUN) 1 GM in IV 1 EA IV SCH ×2 (13:45→14:18)
--- NOTE | 2020-02-27 13:48 | REP ---
CHEST, SINGLE VIEW: There is no evidence of acute infiltrate. No pleural effusion is seen. The heart is normal in size. The mediastinal silhouette is unremarkable. The visualized osseous structures are intact. IMPRESSION: No acute pulmonary disease. Electronically Signed by Mk Ann MD 02/27/2020 09:58 P
[2020-02-27 13:57] LABS: ALBUMIN 3.7 GM/DL (3.2-5.2); ALT/SGPT 16 U/L (12-78); BILIRUBIN,DIRECT < 0.1 MG/DL (0.0-0.2); BILIRUBIN,TOTAL 0.3 MG/DL (0.2-1.0); BLOOD UREA NITROGEN 14 MG/DL (7-18); CALCIUM LEVEL 9.1 MG/DL (8.5-10.1); CARBON DIOXIDE LEVEL 23 MEQ/L (21-32); CHLORIDE LEVEL 104 MEQ/L (98-107); GLOMERULAR FILTRATION RATE > 60.0 (>51); GLUCOSE, FASTING 101 MG/DL (70-100); POTASSIUM SERUM 4.2 MEQ/L (3.5-5.1); SODIUM LEVEL 135 MEQ/L (136-145); TOTAL PROTEIN 7.7 GM/DL (6.4-8.2)
[2020-02-27 14:25] LABS: VENOUS BASE EXCESS -3.9 (-2.0-2.0); VENOUS HCO3 20.9 MEQ/L (23.0-27.0); VENOUS O2 SATURATION 98.4 % (60.0-80.0); VENOUS PARTIAL PRESSURE CO2 37.3 mmHg (38.0-50.0); VENOUS PARTIAL PRESSURE O2 108.1 mmHg (30.0-50.0); VENOUS PH 7.366 UNITS (7.330-7.430); VENOUS STANDARD HCO3 21.3 MEQ/L
[2020-02-27] MEDS ORDERED: SERO50TA PO (14:50)
[2020-02-27] MEDS ORDERED: CLON0.5T17 PO (14:50)
[2020-02-27] MEDS ORDERED: ONDA8TAB10 PO (14:50)
[2020-02-27] MEDS ORDERED: MOM 30ML SUSPENSION UDC PO PRN (15:30)
[2020-02-27] MEDS ORDERED: ACETAMINOPHEN TAB 650MG DOSE (2X325MG) PO PRN (15:30)
[2020-02-27] MEDS ORDERED: MAALOX 30 ML SUSP *UDC PO PRN (15:30)
--- NOTE | 2020-02-27 16:19 | ECGEPIP ---
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
--- NOTE | 2020-02-27 16:46 | HPEPDOC ---
General Date of Admission 02/27/20 Date of Service: Feb 27, 2020 Chief Complaint The patient is a 54-year-old female admitted with a reason for visit of Cold Symptoms. Source: Patient History of Present Illness 54 year old female smoker, asthma/ COPD presented with 4 days history of runny nose, cough, congestion, increased phlegm production, subjective fevers, malaise with increasing shortness of breath and chest tightness and wheezing. 3 days ago she woke up in the morning with phlegm running down all over her chin and clothes then she cut down her Seroquel from 250 mg to 100 mg as she did not even wake up when she was coughing at night. Since then she has been waking up at night when she has been coughing. Her SOb continues to become worse so she came to the ED today for evaluation. In ED Resp panel with COVID-19 was negative, CXR was negative. She received albuterol inhalers and steroids however still remained sob with wheezing. She was admitted for Asthma/COPD exacerbation. Home Medications Scheduled Clonazepam (Clonazepam) 0.5 Mg Tab.rapdis, 0.5 MG PO BID, (Reported) Esomeprazole Magnesium (Nexium) 40 Mg Cap, 40 MG PO DAILY, (Reported) Lamotrigine (Lamictal) 150 Mg Tab, 150 MG PO BID, (Reported) Lisinopril (Lisinopril) 20 Mg Tab, 20 MG PO DAILY, (Reported) Paroxetine HCl (Paxil) 30 Mg Tablet, 30 MG PO DAILY, (Reported) Quetiapine Fumarate (Quetiapine Fumarate) 200 Mg Tablet, 200 MG PO QHS, (Reported) TYPICALLY TAKES 250MG TOTAL, HAS BEEN TAKING 100MG SINCE BEING SICK Quetiapine Fumarate (Seroquel) 50 Mg Tablet, 50 MG PO QHS, (Reported) TYPICALLY TAKES 250MG TOTAL, HAS BEEN TAKING 100MG SINCE BEING SICK Scheduled PRN Albuterol Sulfate (Ventolin Hfa) 108 Mcg/Act Aer, 2 MCG INH Q6H PRN for SHORTNESS OF BREATH, (Reported) Cetirizine HCl (Cetirizine HCl) 10 Mg Tab, 10 MG PO DAILY PRN for ALLERGIES, (Reported) Guaifenesin (Mucinex) 600 Mg Tab.er.12h, 600 MG PO BID PRN for CONGESTION, (Reported) Ondansetron HCl (Ondansetron HCl) 8 Mg Tablet, 8 MG PO TID PRN for NAUSEA OR VOMITING, (Reported) Allergies Coded Allergies: metronidazole (Verified Allergy, Intermediate, RASH, 01/05/20) naproxen (Verified Allergy, Intermediate, RASH, 01/05/20) NSAIDS (Non-Steroidal Anti-Inflamma (Verified Allergy, Unknown, 01/05/20) Sulfa (Sulfonamide Antibiotics) (Verified Allergy, Unknown, 01/05/20) Past Medical History Medical History MULTIPLE 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 HYPERTENSION Severe Asthma COPD Migraines Allergies to ragweed, [place], dust Bipolar disorder per history, depressive episode PTSD H/O Alcohol use disorder Tobacco use disorder Seizures Surgical History LEFT OVARY CYSTECTOMY 1986 CHOLECYSTECTOMY 2006 Family History Significant Family History: Asthma (Nephew), COPD (father), Heart disease (father), Hypertension (father) Social History * Smoker: current smoker Alcohol: occationally Drugs: denies A-FIB/CHADSVASC A-FIB History Current/History of A-Fib/PAF?: No Review of Systems Constitutional: Reports: Chills, Fever, Fatigue Eyes: Denies: Pain, Vision change ENT: Reports: Head Aches, Sinus Congestion, Other Symptoms (nasal congestion) Skin: Denies: Rash, Lesions, Breakdown Pulmonary: Reports: Dyspnea, Cough Cardiovascular: Denies: Chest Pain, Palpitations, Orthopnea, Paroxysmal Noc. Dyspnea, Lt Headedness Gastrointestinal: Reports: Nausea Genitourinary: Denies: Dysuria, Frequency, Incontinence, Retention Hematologic: Denies: Bruising, Bleeding Excessively Physical Examination General Exam: Positive: Alert, Cooperative, No Acute Distress Eye Exam: Positive: PERRLA, Conjunctiva & lids normal, EOMI; Negative: Sclera icteric ENT Exam: Positive: Atraumatic, Mucous membr. moist/pink, Pharynx Normal Neck Exam: Positive: Supple; Negative: JVD, thyromegaly Chest Exam: Positive: Rhonchi, Wheezing, Diminished Heart Exam: Positive: Tachycardic, Regular Rhythm, Normal S1, Normal S2; Negative: Murmurs, Rubs Telemetry: Positive: No significant arrhythmia Abdomen Exam: Positive: Normal bowel sounds, Soft; Negative: Tenderness, Hepatospenomegaly Extremity Exam: Positive: Normal pulses; Negative: Clubbing, Cyanosis, Edema Skin Exam: Positive: Nl turgor and temperature; Negative: Breakdown, Lesion Vital Signs Vital Signs Date Time Temp Pulse Resp B/P (MAP) Pulse Ox O2 Delivery O2 Flow Rate FiO2 02/27/20 14:00 96 18 115/64 (81) 94 Room Air 02/27/20 12:07 96.7 Laboratory Data Labs 24H Laboratory Tests 2 02/27/20 12:30: Immature Granulocyte % (Auto) 0.3, Neutrophils (%) (Auto) 43.8, Lymphocytes (%) (Auto) 41.9, Monocytes (%) (Auto) 9.0H, Eosinophils (%) (Auto) 3.3H, Basophils (%) (Auto) 1.7H, Neutrophils # (Auto) 3.4, Lymphocytes # (Auto) 3.2, Monocytes # (Auto) 0.7, Eosinophils # (Auto) 0.3, Basophils # (Auto) 0.1, Nucleated Red Blood Cells % (auto) 0.0, Anion Gap 8, Glomerular Filtration Rate > 60.0, Lactic Acid Level 0.7, Calcium Level 9.1, Total Bilirubin 0.3, Direct Bilirubin < 0.1, Aspartate Amino Transf (AST/SGOT) 11, Alanine Aminotransferase (ALT/SGPT) 16, Alkaline Phosphatase 98, Total Protein 7.7, Albumin 3.7, Albumin/Globulin Ratio 0.93L 02/27/20 13:00: Blood Gas Bicarbonate Standard 21.3, Venous Blood pH 7.366, Venous Blood Partial Pressure CO2 37.3L, Venous Blood Partial Pressure O2 108.1H, Venous Blood Total Carbon Dioxide 22.0L, Venous Blood HCO3 20.9L, Venous Blood Oxygen Saturation 98.4H, Venous Blood Base Excess -3.9L, Coronavirus (COVID-19)(PCR) NEGATIVE CBC/BMP Laboratory Tests 02/27/20 12:30 Microbiology Microbiology 02/27/20 Respiratory Panel (PCR) - Final, Complete 02/27/20 Blood Culture, Received Pending 02/27/20 Blood Culture, Received Pending Assessment/Plan 54 year old female smoker, asthma/ COPD presented with 4 days history of runny nose, cough, congestion, increased phlegm production, subjective fevers, malaise with increasing shortness of breath and chest tightness and wheezing. 3 days ago she woke up in the morning with phlegm running down all over her chin and clothes then she cut down her Seroquel from 250 mg to 100 mg as she did not even wake up when she was coughing at night. Since then she has been waking up at night when she has been coughing. Her SOb continues to become worse so she came to the ED today for evaluation. In ED Resp panel with COVID-19 was negative, CXR was negative. She received albuterol inhalers and steroids however still remained sob with wheezing. She was admitted for Asthma/COPD exacerbation. Asthma/COPD exacerbation Patient says she has severe asthma however her previous charts carry a diagnosis of COPD will give albuterol, symbicort and methylprednisone doxycycline. Psychiatric issues will continue seroquel lower dose, klonapin, paxel Hypertension continue lisinopril Seizures continue lamotrigine MS and optic neuritis no issues at this time usually affects left side. Walks with a cane, has poor vision in the right eye Plan / VTE VTE Prophylaxis Ordered?: Yes ABEBE JARAMILLO MD Feb 27, 2020 16:46
[2020-02-27] MEDS ORDERED: ALBUTEROL 90 MCG/ACT 8GM HFA INHALER INH SCH (17:00)
[2020-02-27 17:20] VITALS: BP 112/74
[2020-02-27] MEDS ORDERED: COMBIVENT RESPIMAT 100-20MCG INHALER 4GM INH SCH (18:00)
[2020-02-27] MEDS: SYMBICORT 80/4.5MCG INHALER 6GM INH SCH (18:17)
[2020-02-27] MEDS: ALBUTEROL 90 MCG/ACT 8GM HFA INHALER INH SCH (20:00)
[2020-02-27] MEDS: QUEtiapine FUMARATE 50 MG TAB PO SCH (20:47)
[2020-02-27] MEDS: ENOXAPARIN 40MG/0.4ML SYRINGE (J1650 PER 10MG) SC SCH (20:47)
[2020-02-27] MEDS: DOCUSATE SODIUM 100 MG CAP PO SCH (20:47)
[2020-02-27] MEDS: methylPREDNISolone INJ 40 MG/1 ML VIAL (J2920) IV SCH (20:47)
[2020-02-27] MEDS: clonazePAM 0.5 MG TAB PO SCH (20:47)
[2020-02-27] MEDS: lamoTRIgine 100MG TAB PO SCH (20:47)
[2020-02-27] MEDS: DOXYCYCLINE HYCLATE 100MG TABLET PO SCH (20:47)
[2020-02-27] MEDS ORDERED: SYMBICORT 80/4.5MCG INHALER 6GM INH SCH (21:00)
[2020-02-27 22:00] VITALS: BP 124/79
[2020-02-28] MEDS: methylPREDNISolone INJ 40 MG/1 ML VIAL (J2920) IV SCH ×2 (05:21→16:30)
[2020-02-28 06:00] VITALS: BP 121/74
[2020-02-28 06:34] LABS: BASO % 0.2 % (0.0-1.0); HEMOGLOBIN 12.9 g/dl (12.0-15.5); LYMPH # 1.4 10^3/uL (1.5-5.0); MEAN CORPUSCULAR HEMOGLOBIN 29.9 pg (27.0-33.0); MEAN CORPUSCULAR HGB CONC 33.1 g/dl (32.0-36.5); MEAN CORPUSCULAR VOLUME 90.5 fl (80.0-96.0); MONO # 0.7 10^3/uL (0.0-0.8); MONO % 7.4 % (0.0-5.0); NEUTROPHILS # 6.9 10^3/uL (1.5-8.5); NEUTROPHILS % 76.7 % (36.0-66.0); PLATELET COUNT, AUTOMATED 305 10^3/uL (150-450); RED BLOOD COUNT 4.31 10^6/uL (4.00-5.40)
[2020-02-28 07:01] LABS: BLOOD UREA NITROGEN 12 MG/DL (7-18); CALCIUM LEVEL 8.6 MG/DL (8.5-10.1); CARBON DIOXIDE LEVEL 24 MEQ/L (21-32); CHLORIDE LEVEL 107 MEQ/L (98-107); CREATININE FOR GFR 0.57 MG/DL (0.55-1.30); GLOMERULAR FILTRATION RATE > 60.0 (>51); GLUCOSE, FASTING 176 MG/DL (70-100); POTASSIUM SERUM 4.3 MEQ/L (3.5-5.1); SODIUM LEVEL 138 MEQ/L (136-145)
[2020-02-28] MEDS: SYMBICORT 80/4.5MCG INHALER 6GM INH SCH ×2 (07:36→19:51)
[2020-02-28] MEDS: ALBUTEROL 90 MCG/ACT 8GM HFA INHALER INH SCH ×4 (07:36→19:51)
--- NOTE | 2020-02-28 08:15 | IPNPDOC ---
Subjective Date Seen The patient was seen on 02/28/20. Subjective Chief Complaint/HPI Feels much better today. Says her SOB is much better with the symbicort and the steroids. Her oxygen dropped down to 84% at night so was put on oxygen. Arya need nocturnal oximetry. No nausea or vomting or diarrhea. Objective Physical Examination General Exam: Positive: Alert, Cooperative, No Acute Distress Eye Exam: Positive: PERRLA, Conjunctiva & lids normal, EOMI; Negative: Sclera icteric ENT Exam: Positive: Atraumatic, Mucous membr. moist/pink, Pharynx Normal Neck Exam: Positive: Supple; Negative: JVD, thyromegaly Chest Exam: Positive: Clear to auscultation, Diminished Heart Exam: Positive: Tachycardic, Regular Rhythm, Normal S1, Normal S2; Negative: Murmurs, Rubs Telemetry: Positive: No significant arrhythmia Abdomen Exam: Positive: Normal bowel sounds, Soft; Negative: Tenderness, Hepatospenomegaly Extremity Exam: Positive: Normal pulses; Negative: Clubbing, Cyanosis, Edema Skin Exam: Positive: Nl turgor and temperature; Negative: Breakdown, Lesion Assessment /Plan Assessment 54 year old female smoker, asthma/ COPD presented with 4 days history of runny nose, cough, congestion, increased phlegm production, subjective fevers, malaise with increasing shortness of breath and chest tightness and wheezing. 3 days ago she woke up in the morning with phlegm running down all over her chin and clothes then she cut down her Seroquel from 250 mg to 100 mg as she did not even wake up when she was coughing at night. Since then she has been waking up at night when she has been coughing. Her SOb continues to become worse so she came to the ED today for evaluation. In ED Resp panel with COVID-19 was negative, CXR was negative. She received albuterol inhalers and steroids however still remained sob with wheezing. She was admitted for Asthma/COPD exacerbation. Asthma/COPD exacerbation Patient says she has severe asthma however her previous charts carry a diagnosis of COPD albuterol, symbicort and methylprednisone,doxycycline. improving Hypoxia during sleep ?AIMEE has the typical body habitus will check nocturnal oximetry Psychiatric issues will continue seroquel lower dose, klonapin, paxel Hypertension continue lisinopril Seizures continue lamotrigine MS and optic neuritis no issues at this time usually affects left side. Walks with a cane, has poor vision in the right eye Plan/VTE VTE Prophylaxis Ordered?: Yes VS, I&O, 24H, [place] Vital Signs/I&O Vital Signs Date Time Temp Pulse Resp B/P (MAP) Pulse Ox O2 Delivery O2 Flow Rate FiO2 02/28/20 06:00 97.6 92 18 121/74 (90) 96 Room Air 02/28/20 04:56 2.0 I&O- Last 24 Hours up to 6 AM 02/28/20 06:00 Intake Total 940 ml Output Total 1200 ml Balance -260 ml Laboratory Data 24H LABS Laboratory Tests 2 02/27/20 12:30: Immature Granulocyte % (Auto) 0.3, Neutrophils (%) (Auto) 43.8, Lymphocytes (%) (Auto) 41.9, Monocytes (%) (Auto) 9.0H, Eosinophils (%) (Auto) 3.3H, Basophils (%) (Auto) 1.7H, Neutrophils # (Auto) 3.4, Lymphocytes # (Auto) 3.2, Monocytes # (Auto) 0.7, Eosinophils # (Auto) 0.3, Basophils # (Auto) 0.1, Nucleated Red Blood Cells % (auto) 0.0, Anion Gap 8, Glomerular Filtration Rate > 60.0, Lactic Acid Level 0.7, Calcium Level 9.1, Total Bilirubin 0.3, Direct Bilirubin < 0.1, Aspartate Amino Transf (AST/SGOT) 11, Alanine Aminotransferase (ALT/SGPT) 16, Alkaline Phosphatase 98, Total Protein 7.7, Albumin 3.7, Albumin/Globulin Ratio 0.93L 02/27/20 13:00: Blood Gas Bicarbonate Standard 21.3, Venous Blood pH 7.366, Venous Blood Partial Pressure CO2 37.3L, Venous Blood Partial Pressure O2 108.1H, Venous Blood Total Carbon Dioxide 22.0L, Venous Blood HCO3 20.9L, Venous Blood Oxygen Saturation 98.4H, Venous Blood Base Excess -3.9L, Coronavirus (COVID-19)(PCR) NEGATIVE 02/28/20 06:20: Immature Granulocyte % (Auto) 0.7, Neutrophils (%) (Auto) 76.7H, Lymphocytes (%) (Auto) 15.0L, Monocytes (%) (Auto) 7.4H, Eosinophils (%) (Auto) 0.0, Basophils (%) (Auto) 0.2, Neutrophils # (Auto) 6.9, Lymphocytes # (Auto) 1.4L, Monocytes # (Auto) 0.7, Eosinophils # (Auto) 0.0, Basophils # (Auto) 0.0, Nucleated Red Blood Cells % (auto) 0.0, Anion Gap 7L, Glomerular Filtration Rate > 60.0, Calcium Level 8.6 CBC/BMP Laboratory Tests 02/27/20 12:30 02/28/20 06:20 Microbiology Microbiology 02/27/20 Respiratory Panel (PCR) - Final, Complete 02/27/20 Blood Culture, Received Pending 02/27/20 Blood Culture, Received Pending ABEBE JARAMILLO MD Feb 28, 2020 08:15
[2020-02-28] MEDS: DOXYCYCLINE HYCLATE 100MG TABLET PO SCH ×2 (08:16→20:53)
[2020-02-28] MEDS: lisinopriL 20 MG TAB PO SCH (08:18)
[2020-02-28] MEDS: DOCUSATE SODIUM 100 MG CAP PO SCH ×2 (08:18→20:53)
[2020-02-28] MEDS: PANTOPRAZOLE 40MG TAB (PROTONIX) PO SCH (08:18)
[2020-02-28] MEDS: clonazePAM 0.5 MG TAB PO SCH ×2 (08:18→20:53)
[2020-02-28] MEDS: lamoTRIgine 100MG TAB PO SCH ×2 (08:18→20:53)
[2020-02-28] MEDS: PARoxetine 10MG TABLET PO SCH (08:18)
[2020-02-28 09:00] VITALS: BP 122/80
[2020-02-28 14:00] VITALS: BP 108/74
[2020-02-28] MEDS: QUEtiapine FUMARATE 50 MG TAB PO SCH (20:53)
[2020-02-28] MEDS: ENOXAPARIN 40MG/0.4ML SYRINGE (J1650 PER 10MG) SC SCH (20:53)
[2020-02-28 21:02] VITALS: BP 139/82
[2020-02-29] MEDS: methylPREDNISolone INJ 40 MG/1 ML VIAL (J2920) IV SCH (05:12)
[2020-02-29 05:13] VITALS: BP 136/77
[2020-02-29 07:13] LABS: BASO # 0.1 10^3/uL (0.0-0.2); BASO % 0.4 % (0.0-1.0); EOS % 0.3 % (0.0-3.0); HEMATOCRIT 39.5 % (36.0-47.0); HEMOGLOBIN 12.6 g/dl (12.0-15.5); LYMPH # 2.8 10^3/uL (1.5-5.0); LYMPH % 21.8 % (24.0-44.0); MEAN CORPUSCULAR HEMOGLOBIN 29.6 pg (27.0-33.0); MEAN CORPUSCULAR HGB CONC 31.9 g/dl (32.0-36.5); MEAN CORPUSCULAR VOLUME 92.9 fl (80.0-96.0); MONO # 0.8 10^3/uL (0.0-0.8); MONO % 5.9 % (0.0-5.0); NEUTROPHILS # 8.9 10^3/uL (1.5-8.5); NEUTROPHILS % 70.7 % (36.0-66.0); PLATELET COUNT, AUTOMATED 294 10^3/uL (150-450); RED BLOOD COUNT 4.25 10^6/uL (4.00-5.40); WHITE BLOOD COUNT 12.7 10^3/uL (4.0-10.0)
[2020-02-29] MEDS: SYMBICORT 80/4.5MCG INHALER 6GM INH SCH (07:16)
[2020-02-29] MEDS: ALBUTEROL 90 MCG/ACT 8GM HFA INHALER INH SCH (07:17)
[2020-02-29 07:34] LABS: BLOOD UREA NITROGEN 15 MG/DL (7-18); CALCIUM LEVEL 8.7 MG/DL (8.5-10.1); CARBON DIOXIDE LEVEL 24 MEQ/L (21-32); CHLORIDE LEVEL 108 MEQ/L (98-107); CREATININE FOR GFR 0.54 MG/DL (0.55-1.30); GLOMERULAR FILTRATION RATE > 60.0 (>51); GLUCOSE, FASTING 119 MG/DL (70-100); POTASSIUM SERUM 4.3 MEQ/L (3.5-5.1); SODIUM LEVEL 139 MEQ/L (136-145)
[2020-02-29] MEDS ORDERED: SYMB80INH INH (08:21)
[2020-02-29] MEDS ORDERED: PRED20TA PO (08:21)
[2020-02-29] MEDS ORDERED: DOXY100T PO (08:21)
[2020-02-29] MEDS: lamoTRIgine 100MG TAB PO SCH (09:00)
[2020-02-29 09:01] VITALS: BP 136/77
[2020-02-29] MEDS: lisinopriL 20 MG TAB PO SCH (09:01)
[2020-02-29] MEDS: DOCUSATE SODIUM 100 MG CAP PO SCH (09:01)
[2020-02-29] MEDS: PANTOPRAZOLE 40MG TAB (PROTONIX) PO SCH (09:01)
[2020-02-29] MEDS: PARoxetine 10MG TABLET PO SCH (09:01)
[2020-02-29] MEDS: DOXYCYCLINE HYCLATE 100MG TABLET PO SCH (09:01)
[2020-02-29] MEDS: clonazePAM 0.5 MG TAB PO SCH (09:02)
--- NOTE | 2020-02-29 13:07 | NOCOX ---
DATE OF PROCEDURE: 02/28/2020 Total valid sampling time was approximately 6 hours and 43 minutes. The oxygen saturation ranged from a high of 99% to a low of 83% with an average of 93.4%. The heart rate ranged from 100-57 beat per minute. The time spent with an oxygen saturation less than 88% was 24 seconds. Graphically, the patient had few episodes of oxygen saturation variability. There was significant heart rate variability noted overnight. IMPRESSION: Likely normal nocturnal oximetry study. The patient does not have significant desaturation to qualify for nasal cannula oxygen supplementation nocturnally. There was significant heart rate variability noted graphically and few episodes of oxygen saturation variability. Clinically, if there is suspicion of sleep disordered breathing can consider more formal sleep testing.
--- NOTE | 2020-03-01 06:49 | DS.PDOC ---
Discharge Summary General Date of Admission Feb 27, 2020 at 15:17 Date of Discharge 02/29/2020 Primary Care Physician: TARAH BARNES DO Attending Physician: YOBANI WILLIS MD Discharge Summary PCP: Dr. Tarah Barnes DO PROCEDURES PERFORMED DURING STAY: None. ADMITTING/DISCHARGE DIAGNOSES: asthma/COPD exacerbation Hypertension Seizures MS and optic neuritis COMPLICATIONS/CHIEF COMPLAINT: shortness of breath HISTORY OF PRESENT ILLNESS/HOSPITAL COURSE: Patient is a 54 year old female who presented with a 4 day history of runny nose, cough, congestion, increased phlegm production, subjective fevers, malaise with increasing shortness of breath, chest tightness, and wheezing. 3 days ago she woke up in the morning with phlegm running down all over her chin and clothes then she cut down her Seroquel from 250 mg to 100 mg as she did not even wake up when she was coughing at night. Since then she has been waking up at night when she has been coughing. Her SOB continued to worsen so she came to the ED for evaluation. In the ED, respiratory panel with COVID-19 was negative, CXR was negative. She received albuterol inhaler and steroids however still remained sob with wheezing. She was admitted for Asthma/COPD exacerbation and started on scheduled albuterol, symbicort, IV steroids, and doxycycline for its anti-inflammatory properties. Overnight it seemed like she may have experienced some desaturations on her pulse ox so a noc ox was applied the following day as she continued to have some wheezing. Noc ox was negative. Her breathing improved on Friday and by Friday she was deemed appropriate for discharge home with her asthma better controlled. DISCHARGE MEDICATIONS: Please see below. ALLERGIES: Please see below. Vitals: (see below) General: Obese female in no acute distress, laying comfortably in bed. HEENT: Normocephalic, atraumatic. EOMI. No scleral icterus. Moist mucous membranes. No pharyngeal erythema or uvular deviation. Neck: No JVD, lymphadenopathy, or thyromegaly. Cardiac: RRR, Normal S1 and S2, No murmurs, gallops, rubs. Pulm: Clear to auscultation b/l. Symmetric thorax. faint, mild end-expiratory wheezes, crackles, rhonchi Abd: Bowel Sounds present. Abdomen is obese, soft, non-tender, non-distended. No guarding, rebound tenderness, or rigidity. Ext: No edema or cyanosis Skin: No skin changes Neuro: No focal neuro deficits Psych: Appropriate affect LABORATORY DATA: Please see below. IMAGIN02/27/2020 CXR: No acute pulmonary disease. PROGNOSIS: stable ACTIVITY: As tolerated. DIET: As tolerated DISCHARGE PLAN: home DISCHARGE INSTRUCTIONS: 1. Please return to hospital if symptoms worsen 2. Please complete oral steroid regimen. DISCHARGE CONDITION: [Stable]. TIME SPENT ON DISCHARGE: 35 minutes Vital Signs/I&Os Vital Signs Date Time Temp Pulse Resp B/P (MAP) Pulse Ox O2 Delivery O2 Flow Rate FiO2 02/29/20 09:01 136/77 02/29/20 05:13 97.4 75 16 96 Room Air 02/28/20 04:56 2.0 I&O- Last 24 Hours up to 6 AM 03/01/20 06:00 Intake Total 720 ml Output Total 1100 ml Balance -380 ml Laboratory Data Labs 24H Laboratory Tests 2 02/29/20 06:41: Immature Granulocyte % (Auto) 0.9, Neutrophils (%) (Auto) 70.7H, Lymphocytes (%) (Auto) 21.8L, Monocytes (%) (Auto) 5.9H, Eosinophils (%) (Auto) 0.3, Basophils (%) (Auto) 0.4, Neutrophils # (Auto) 8.9H, Lymphocytes # (Auto) 2.8, Monocytes # (Auto) 0.8, Eosinophils # (Auto) 0.0, Basophils # (Auto) 0.1, Nucleated Red Blood Cells % (auto) 0.0, Anion Gap 7L, Glomerular Filtration Rate > 60.0, Calcium Level 8.7 CBC/BMP Laboratory Tests 02/29/20 06:41 Microbiology Microbiology 02/27/20 Respiratory Panel (PCR) - Final, Complete 02/27/20 Blood Culture - Preliminary, Resulted No Growth after 48 hours. All Specime... 02/27/20 Blood Culture - Preliminary, Resulted No Growth after 48 hours. All Specime... Discharge Medications Scheduled Budesonide/Formoterol (Symbicort 80-4.5 Mcg Inhaler) 6.9 Gm Hfa.aer.ad, 2 PUFF INH RQ12H Please inhale 2 puffs every 12 hours daily. Clonazepam (Clonazepam) 0.5 Mg Tab.rapdis, 0.5 MG PO BID, (Reported) Doxycycline Hyclate (Doxycycline Hyclate) 100 Mg Tablet, 100 MG PO BID Please take 1 tablet by mouth twice daily Esomeprazole Magnesium (Nexium) 40 Mg Cap, 40 MG PO DAILY, (Reported) Lamotrigine (Lamictal) 150 Mg Tab, 150 MG PO BID, (Reported) Lisinopril (Lisinopril) 20 Mg Tab, 20 MG PO DAILY, (Reported) Paroxetine HCl (Paxil) 30 Mg Tablet, 30 MG PO DAILY, (Reported) Prednisone (Prednisone) 20 Mg Tablet, 20 MG PO BID Quetiapine Fumarate (Quetiapine Fumarate) 200 Mg Tablet, 200 MG PO QHS, (Reported) TYPICALLY TAKES 250MG TOTAL, HAS BEEN TAKING 100MG SINCE BEING SICK Quetiapine Fumarate (Seroquel) 50 Mg Tablet, 50 MG PO QHS, (Reported) TYPICALLY TAKES 250MG TOTAL, HAS BEEN TAKING 100MG SINCE BEING SICK Scheduled PRN Albuterol Sulfate (Ventolin Hfa) 108 Mcg/Act Aer, 2 MCG INH Q6H PRN for SHORTNESS OF BREATH, (Reported) Cetirizine HCl (Cetirizine HCl) 10 Mg Tab, 10 MG PO DAILY PRN for ALLERGIES, (Reported) Guaifenesin (Mucinex) 600 Mg Tab.er.12h, 600 MG PO BID PRN for CONGESTION, (Reported) Ondansetron HCl (Ondansetron HCl) 8 Mg Tablet, 8 MG PO TID PRN for NAUSEA OR VOMITING, (Reported) Allergies Coded Allergies: metronidazole (Verified Allergy, Intermediate, RASH, 01/05/20) naproxen (Verified Allergy, Intermediate, RASH, 01/05/20) NSAIDS (Non-Steroidal Anti-Inflamma (Verified Allergy, Unknown, 01/05/20) Sulfa (Sulfonamide Antibiotics) (Verified Allergy, Unknown, 01/05/20) GME ATTESTATION GME ATTESTATION My faculty preceptor for this patient encounter was physically present during the encounter and was fully available. All aspects of the patient interview, examination, medical decision making process, and medical care plan development were reviewed and approved by the faculty preceptor. The faculty preceptor is aware and concurs with the plan as stated in the body of this note and will attest to such by his/her cosignature. JULITO LUBIN DO Mar 01, 2020 06:49
== END 2020-02-29 10:20 | disposition home or self-care (01) | DRG 140 ==
LOC: M ED 12:07 → M ED INP 15:17 → M MS5PR 17:15
PROVIDERS: ADMIT Internal Medicine Nephrology; ATTEND Internal Medicine
DX: J44.1 Chronic obstructive pulmonary disease with (acute) exacerbation (principal); J45.901 Unspecified asthma with (acute) exacerbation; I10 Essential (primary) hypertension; G35 Multiple sclerosis; G40.909 Epilepsy, unspecified, not intractable, without status epilepticus; H46.9 Unspecified optic neuritis; Z79.899 Other long term (current) drug therapy; Z88.2 Allergy status to sulfonamides; Z88.8 Allergy status to other drugs, medicaments and biological substances; G43.909 Migraine, unspecified, not intractable, without status migrainosus; F43.10 Post-traumatic stress disorder, unspecified; F31.9 Bipolar disorder, unspecified; F17.200 Nicotine dependence, unspecified, uncomplicated

== ENCOUNTER 2020-03-19 02:38 | Emergency (ER) | payer MEDICAID ==
[~2020-03-19] VITALS: Ht 152.4 cm; Wt 84.1 kg
[~2020-03-19 02:38] MED LIST changes: +CLON0.5T17 PO; -CLOT1CRE2 TOP; +CLOT1CRE56 TOP; +DOXY100T PO; +MUCI600T31 PO; +NICO-256 PO; -NICO4GUM2 PO; +ONDA8TAB10 PO; -PARO15TA; +PARO30TA4; +SERO50TA PO; +SYMB80INH INH
[2020-03-19 04:38] VITALS: BP 127/86
[2020-03-19] MEDS ORDERED: ZOFR4TAB16 PO (04:43)
[2020-03-19] MEDS ORDERED: ONDANSETRON 4 MG TAB PO ONE (04:45)
--- NOTE | 2020-03-20 12:54 | REP ---
CT BRAIN WITHOUT CONTRAST: REPEAT DICTATION. HISTORY: History of MS. History of a fall. Preliminary report is provided at the time of the exam by [facility]. COMPARISON STUDY: January 05, 2020 CT FINDINGS: Digital preliminary mobile designer radiograph is unremarkable. Bone window settings demonstrate an intact bony calvarium. Visualized paranasal sinuses are clear. No intraorbital abnormality is seen. On soft tissue window settings, the lateral, third, and fourth ventricles are normal in size and position. There is no evidence of intracranial hemorrhage. No mass, infarct, extra-axial fluid collection, or midline shift is seen. IMPRESSION: Negative noncontrast head CT. Electronically Signed by Aki Logan MD 03/20/2020 04:56 P
== END 2020-03-19 05:12 | disposition home or self-care (01) ==
LOC: EDBD 02:38 → M ED 02:38 → EDSEX 02:38 → M ED 05:12
DX: S00.93XA Contusion of unspecified part of head, initial encounter (principal); W19.XXXA Unspecified fall, initial encounter; Y92.098 Other place in other non-institutional residence as the place of occurrence of the external cause; G35 Multiple sclerosis; H46.8 Other optic neuritis; I10 Essential (primary) hypertension; J44.9 Chronic obstructive pulmonary disease, unspecified; G43.909 Migraine, unspecified, not intractable, without status migrainosus; F31.9 Bipolar disorder, unspecified; F17.200 Nicotine dependence, unspecified, uncomplicated; Z91.81 History of falling; Z99.89 Dependence on other enabling machines and devices; Z88.8 Allergy status to other drugs, medicaments and biological substances; Z88.2 Allergy status to sulfonamides; Z88.1 Allergy status to other antibiotic agents; Z79.899 Other long term (current) drug therapy; Z79.51 Long term (current) use of inhaled steroids

== ENCOUNTER 2020-04-02 04:27 | Emergency (ER) | payer MEDICAID ==
[~2020-04-02] VITALS: Ht 152.4 cm; Wt 86.8 kg
[2020-04-02 06:01] VITALS: BP 136/85
--- NOTE | 2020-04-02 19:51 | ECGEPIP ---
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
--- NOTE | 2020-04-04 10:49 | REP ---
REASON: Trauma. COMPARISON: 03/19/2020 Preliminary report given by [facility] at the time the exam was performed. TECHNIQUE: 4.5 mm contiguous transaxial sections were obtained from the skull base to the cerebral convexities with thin cuts through the posterior fossa without the administration of intravenous contrast. FINDINGS: The ventricles and sulci are consistent with the patient's age. There are no extra-axial fluid collections. There is no mass effect. The deep cerebral white matter is consistent with the patient's age. The orbital and petrous structures, cerebellopontine angles, and posterior fossa are unremarkable. The sella turcica, cavernous, and paracavernous structures are essentially unremarkable. The visualized portions of the paranasal sinuses and mastoid air cells are clear. Images of the skull base show no gross abnormality. IMPRESSION: Essentially unremarkable CT examination of the brain. Electronically Signed by Deniz Leon DO 04/04/2020 12:06 P
--- NOTE | 2020-04-04 12:38 | REP ---
REASON: Trauma. COMPARISON: 06/06/2013 Preliminary report given by [facility] at the time the exam was performed. There is a small amount of soft tissue density seen in the frontal sinuses and frontal ethmoid recesses bilaterally with patchy soft tissue density seen in the ethmoid bulla. The ostiomeatal complex is patent bilaterally. The hiatus semilunaris is intact bilaterally. There is a right middle turbinate zuleika bullosa. There is no evidence of lysis or sclerosis of the bony architecture showing paranasal sinuses. The shai paty and cribriform plate are intact. There is no evidence of an acute maxillofacial fracture. There is minimal mucosal thickening in the right maxillary sinus along the lateral wall. IMPRESSION: No acute fracture. Chronic paranasal sinus changes as described above. Electronically Signed by Deniz Leon DO 04/04/2020 01:01 P
== END 2020-04-02 07:00 | disposition home or self-care (01) ==
LOC: EDBD 04:27 → M ED 04:27
DX: S02.2XXA Fracture of nasal bones, initial encounter for closed fracture (principal); W01.0XXA Fall on same level from slipping, tripping and stumbling without subsequent striking against object, initial encounter; Y92.018 Other place in single-family (private) house as the place of occurrence of the external cause; I10 Essential (primary) hypertension; G35 Multiple sclerosis; F31.9 Bipolar disorder, unspecified; K21.9 Gastro-esophageal reflux disease without esophagitis; Z79.899 Other long term (current) drug therapy; Z88.1 Allergy status to other antibiotic agents; Z88.2 Allergy status to sulfonamides; Z88.8 Allergy status to other drugs, medicaments and biological substances

== ENCOUNTER 2020-04-08 06:04 | Emergency (ER) | payer MEDICAID ==
[~2020-04-08] VITALS: Ht 152.4 cm; Wt 84.5 kg
[2020-04-08] MEDS ORDERED: NS 500 ML IV ONE (07:00)
[2020-04-08 07:19] LABS: BASO # 0.1 10^3/uL (0.0-0.2); BASO % 0.7 % (0.0-1.0); EOS # 0.1 10^3/uL (0.0-0.5); EOS % 0.7 % (0.0-3.0); HEMATOCRIT 43.3 % (36.0-47.0); HEMOGLOBIN 14.6 g/dl (12.0-15.5); LYMPH # 1.8 10^3/uL (1.5-5.0); LYMPH % 19.4 % (24.0-44.0); MEAN CORPUSCULAR HGB CONC 33.7 g/dl (32.0-36.5); MEAN CORPUSCULAR VOLUME 91.9 fl (80.0-96.0); MONO # 0.8 10^3/uL (0.0-0.8); MONO % 9.1 % (0.0-5.0); NEUTROPHILS # 6.4 10^3/uL (1.5-8.5); NEUTROPHILS % 69.9 % (36.0-66.0); PLATELET COUNT, AUTOMATED 256 10^3/uL (150-450); RED BLOOD COUNT 4.71 10^6/uL (4.00-5.40); WHITE BLOOD COUNT 9.1 10^3/uL (4.0-10.0)
[2020-04-08] MEDS ORDERED: diphenhydrAMINE 50MG/ML VIAL (J1200) IV STA (07:19)
[2020-04-08] MEDS ORDERED: KETOROLAC 30 MG/ML 1ML VIAL IV ONE (07:30)
[2020-04-08] MEDS ORDERED: ISOVUE-370 76% 100ML VIAL As Ordered ONE (08:05)
[2020-04-08 08:24] LABS: ERYTHROCYTE SEDIMENTATION RATE 35 mm/hr (0-30)
--- NOTE | 2020-04-08 08:34 | REP ---
Clinical: Left mandibular swelling. Technique: Axial contrast enhanced images through the maxillofacial region with coronal and sagittal re-formations using 100 ml Isovue 370 intravenous contrast material. Comparison: 04/02/2020. Findings: Moderate phlegmonous changes are identified overlying the left hemimandible with subcutaneous swelling and inflammatory stranding (images 5 - 17). No discrete drainable collection yet identified. The osseous structures appear intact without evidence for acute fracture or periosteal reaction to suggest underlying osteomyelitis. The associated adjacent dentition appears relatively normal by CT evaluation. Mild reactive cervical adenopathy noted. Remainder examination is normal. Impression: Phlegmonous and infectious/inflammatory changes overlying the left apolinar mandible without discrete drainable collection/abscess. The underlying osseous structures and dentition appear relatively normal by CT evaluation. Electronically Signed by Scooter Leija MD 04/08/2020 08:25 A
[2020-04-08] MEDS ORDERED: AMPICILLIN SOD/SULBACTAM SOD 3 GM in D5W MINI-BAG PLUS 100 ML IV ONE (09:00)
[2020-04-08] MEDS ORDERED: dexameTHASONE 20MG/5ML VIAL (J1100 PER 1MG) IV ONE (09:00)
[2020-04-08] MEDS ORDERED: AUGM875T28 PO (10:21)
[2020-04-08 10:45] VITALS: BP 150/83
--- NOTE | 2020-04-09 11:01 | ED PDOC ---
Post-Departure Follow-Up dr joseph and renata mehta faxed formal report of ct max fac for fu Rosetta Yeung MD Apr 09, 2020 11:00
== END 2020-04-08 10:48 | disposition home or self-care (01) ==
LOC: M ED 06:04
DX: K02.9 Dental caries, unspecified (principal); R22.0 Localized swelling, mass and lump, head; R50.9 Fever, unspecified; I10 Essential (primary) hypertension; F17.210 Nicotine dependence, cigarettes, uncomplicated; Z88.2 Allergy status to sulfonamides; Z88.8 Allergy status to other drugs, medicaments and biological substances; Z88.1 Allergy status to other antibiotic agents; Z79.899 Other long term (current) drug therapy; Z79.51 Long term (current) use of inhaled steroids
CPT/HCPCS: 70487; 80047; 83605; 85025; 85652; 86140; 87040; 96361; 96365; 96375; 99284; J1100; J1200; J1885; Q9967

== ENCOUNTER 2020-04-10 06:46 | Emergency (ER) | payer MEDICAID ==
[~2020-04-10] VITALS: Ht 152.4 cm; Wt 85.1 kg
[2020-04-10 08:12] LABS: HEMATOCRIT 38.8 % (36.0-47.0); HEMOGLOBIN 12.2 g/dl (12.0-15.5); MEAN CORPUSCULAR HEMOGLOBIN 29.6 pg (27.0-33.0); MEAN CORPUSCULAR HGB CONC 31.4 g/dl (32.0-36.5); MEAN CORPUSCULAR VOLUME 94.2 fl (80.0-96.0); PLATELET COUNT, AUTOMATED 279 10^3/uL (150-450); RED BLOOD COUNT 4.12 10^6/uL (4.00-5.40); WHITE BLOOD COUNT 10.7 10^3/uL (4.0-10.0)
[2020-04-10] MEDS ORDERED: diphenhydrAMINE 50MG/ML VIAL (J1200) IV ONE (08:15)
[2020-04-10] MEDS ORDERED: KETOROLAC 30 MG/ML 1ML VIAL IV ONE (08:15)
[2020-04-10 08:33] LABS: EOSINOPHILS 2 % (0-3); LYMPHOCYTES 45 % (16-44); MONOCYTES 5 % (0-5); NEUTROPHILS 48 % (28-66)
[2020-04-10 08:34] LABS: PLATELET ESTIMATE NORMAL (NORMAL)
[2020-04-10 08:37] LABS: BLOOD UREA NITROGEN 11 MG/DL (7-18); C REACTIVE PROTEIN QUANTITATIV 1.34 MG/DL (0.00-0.30); CALCIUM LEVEL 8.3 MG/DL (8.5-10.1); CARBON DIOXIDE LEVEL 24 MEQ/L (21-32); CHLORIDE LEVEL 109 MEQ/L (98-107); CREATININE FOR GFR 0.48 MG/DL (0.55-1.30); GLOMERULAR FILTRATION RATE > 60.0 (>51); GLUCOSE, FASTING 83 MG/DL (70-100); POTASSIUM SERUM 4.4 MEQ/L (3.5-5.1); SODIUM LEVEL 138 MEQ/L (136-145)
[2020-04-10 08:52] LABS: ERYTHROCYTE SEDIMENTATION RATE 41 mm/hr (0-30)
[2020-04-10 09:21] VITALS: BP 127/70
[2020-04-10] MEDS ORDERED: AMPICILLIN SOD/SULBACTAM SOD 3 GM in D5W MINI-BAG PLUS 100 ML IV ONE (09:30)
== END 2020-04-10 10:21 | disposition home or self-care (01) ==
LOC: M ED 06:46
DX: R22.0 Localized swelling, mass and lump, head (principal); K02.9 Dental caries, unspecified; Z88.2 Allergy status to sulfonamides; Z88.1 Allergy status to other antibiotic agents; Z88.8 Allergy status to other drugs, medicaments and biological substances
CPT/HCPCS: 80048; 85025; 85652; 86140; 87040; 96365; 96375; 99283; J1200; J1885

== ENCOUNTER 2020-05-08 11:17 | Emergency (ER) | payer MEDICAID ==
[~2020-05-08] VITALS: Ht 152.4 cm; Wt 85.5 kg
[2020-05-08 12:17] LABS: HEMATOCRIT 40.9 % (36.0-47.0); HEMOGLOBIN 13.5 g/dl (12.0-15.5); MEAN CORPUSCULAR VOLUME 90.9 fl (80.0-96.0); PLATELET COUNT, AUTOMATED 294 10^3/uL (150-450); WHITE BLOOD COUNT 10.3 10^3/uL (4.0-10.0)
[2020-05-08 12:39] LABS: EOSINOPHILS 3 % (0-3); LYMPHOCYTES 46 % (16-44); MONOCYTES 2 % (0-5); NEUTROPHILS 49 % (28-66); PLATELET ESTIMATE NORMAL (NORMAL)
[2020-05-08 12:44] LABS: BLOOD UREA NITROGEN 14 MG/DL (7-18); C REACTIVE PROTEIN QUANTITATIV < 0.30 MG/DL (0.00-0.30); CALCIUM LEVEL 9.4 MG/DL (8.5-10.1); CARBON DIOXIDE LEVEL 24 MEQ/L (21-32); CHLORIDE LEVEL 105 MEQ/L (98-107); CREATININE FOR GFR 0.51 MG/DL (0.55-1.30); GLOMERULAR FILTRATION RATE > 60.0 (>51); GLUCOSE, FASTING 88 MG/DL (70-100); POTASSIUM SERUM 4.2 MEQ/L (3.5-5.1); SODIUM LEVEL 135 MEQ/L (136-145)
[2020-05-08 13:01] LABS: ERYTHROCYTE SEDIMENTATION RATE 33 mm/hr (0-30)
[2020-05-08 13:17] VITALS: BP 122/70
[2020-05-08] MEDS ORDERED: METH1TAB40 PO (13:27)
== END 2020-05-08 13:37 | disposition home or self-care (01) ==
LOC: M ED 11:17
DX: M54.5 Low back pain (principal); F17.200 Nicotine dependence, unspecified, uncomplicated; Z79.51 Long term (current) use of inhaled steroids; Z79.899 Other long term (current) drug therapy; Z88.2 Allergy status to sulfonamides; Z88.6 Allergy status to analgesic agent; Z88.8 Allergy status to other drugs, medicaments and biological substances

== ENCOUNTER 2020-06-01 10:00 | Emergency (ER) | payer MEDICAID ==
[~2020-06-01 10:00] MED LIST changes: +METH1TAB40 PO; +NICO-13 PO; +NICO-267 PO; -NICO2GUM54 PO; -NICO4GUM31 PO; +PANT40TA29 PO; -PANT40TA3 PO
[2020-06-01] MEDS ORDERED: LIDOCAINE 5% (LIDODERM) PATCH As Ordered ONE (11:00)
[2020-07-09 11:49] LABS: INR 0.9; PROTHROMBIN TIME 12.3 SECONDS (11.8-14.0)
[2020-07-09 13:41] LABS: BASO # 0.1 10^3/uL (0.0-0.2); EOS # 0.2 10^3/uL (0.0-0.5); EOS % 2.6 % (0.0-3.0); HEMATOCRIT 39.6 % (36.0-47.0); HEMOGLOBIN 13.1 g/dl (12.0-15.5); LYMPH # 3.4 10^3/uL (1.5-5.0); LYMPH % 36.8 % (24.0-44.0); MEAN CORPUSCULAR HEMOGLOBIN 30.7 pg (27.0-33.0); MEAN CORPUSCULAR HGB CONC 33.1 g/dl (32.0-36.5); MEAN CORPUSCULAR VOLUME 92.7 fl (80.0-96.0); MONO # 0.8 10^3/uL (0.0-0.8); MONO % 8.7 % (0.0-5.0); NEUTROPHILS # 4.6 10^3/uL (1.5-8.5); NEUTROPHILS % 50.5 % (36.0-66.0); PLATELET COUNT, AUTOMATED 319 10^3/uL (150-450); RED BLOOD COUNT 4.27 10^6/uL (4.00-5.40); WHITE BLOOD COUNT 9.2 10^3/uL (4.0-10.0)
--- NOTE | 2020-07-20 12:21 | ECGEPIP ---
SINUS RHYTHM NORMAL ECG NO OLD AVAILABLE SEE SCANNED DOWNTIME REPORT MTDD
--- NOTE | 2020-07-21 11:38 | REP ---
CT OF THE HEAD WITHOUT CONTRAST: HISTORY: Headache. TECHNIQUE: Axial noncontrast images from the skull base to the vertex with coronal reformations. FINDINGS: The ventricles, sulci and cisterns are symmetric and normal. Ann-white differentiation is maintained. No acute intracranial hemorrhage, mass or mass effect. No extra-axial fluid collection. The calvarium is intact. The paranasal sinuses and mastoid air cells are clear. IMPRESSION: Negative noncontrast head CT. No evidence for acute intracranial pathology or trauma/injury. MTDD
[2020-08-25 11:46] LABS: ALBUMIN 3.8 GM/DL (3.2-5.2); ALT/SGPT 14 U/L (12-78); BILIRUBIN,TOTAL 0.3 MG/DL (0.2-1.0); BLOOD UREA NITROGEN 12 MG/DL (7-18); CALCIUM LEVEL 8.9 MG/DL (8.5-10.1); CARBON DIOXIDE LEVEL 27 MEQ/L (21-32); CHLORIDE LEVEL 105 MEQ/L (98-107); CREATININE FOR GFR 0.47 MG/DL (0.55-1.30); GLOMERULAR FILTRATION RATE > 60.0 (>51); GLUCOSE, FASTING 95 MG/DL (70-100); POTASSIUM SERUM 4.2 MEQ/L (3.5-5.1); SODIUM LEVEL 136 MEQ/L (136-145); TOTAL PROTEIN 7.4 GM/DL (6.4-8.2)
== END 2020-06-01 14:27 | disposition left against medical advice (07) ==
LOC: M ED 10:00
DX: F98.5 Adult onset fluency disorder (principal); J45.909 Unspecified asthma, uncomplicated; G35 Multiple sclerosis; Z53.21 Procedure and treatment not carried out due to patient leaving prior to being seen by health care provider

== ENCOUNTER 2020-06-14 03:30 | Emergency (ER) | payer MEDICAID | END 2020-06-14 05:30 | disposition left against medical advice (07) | LOC: M ED 03:30 | DX: Z53.21 Procedure and treatment not carried out due to patient leaving prior to being seen by health care provider (principal) ==

== ENCOUNTER 2020-06-23 04:18 | Emergency (ER) | payer MEDICAID ==
[~2020-06-23] VITALS: Ht 152.4 cm; Wt 81.8 kg
[2020-06-23] MEDS ORDERED: methylPREDNISolone 125MG 2ML VIAL IV ONE (05:45)
[2020-06-23] MEDS ORDERED: IPRATROPIUM 0.5MG/ALBUTEROL 2.5MG INH SOL UD 3ML (DUONEB) NEB PRN (05:45)
[2020-06-23 06:09] LABS: BASO # 0.1 10^3/uL (0.0-0.2); BASO % 0.7 % (0.0-1.0); EOS # 0.2 10^3/uL (0.0-0.5); EOS % 2.5 % (0.0-3.0); HEMATOCRIT 40.1 % (36.0-47.0); HEMOGLOBIN 13.1 g/dl (12.0-15.5); LYMPH # 2.9 10^3/uL (1.5-5.0); LYMPH % 40.6 % (24.0-44.0); MEAN CORPUSCULAR HEMOGLOBIN 30.1 pg (27.0-33.0); MEAN CORPUSCULAR HGB CONC 32.7 g/dl (32.0-36.5); MEAN CORPUSCULAR VOLUME 92.2 fl (80.0-96.0); MONO # 0.6 10^3/uL (0.0-0.8); MONO % 7.8 % (0.0-5.0); NEUTROPHILS # 3.5 10^3/uL (1.5-8.5); NEUTROPHILS % 48.1 % (36.0-66.0); PLATELET COUNT, AUTOMATED 270 10^3/uL (150-450); RED BLOOD COUNT 4.35 10^6/uL (4.00-5.40); WHITE BLOOD COUNT 7.2 10^3/uL (4.0-10.0)
[2020-06-23 06:41] VITALS: BP 110/74
[2020-06-23 06:50] LABS: ALBUMIN 3.5 GM/DL (3.2-5.2); ALT/SGPT 14 U/L (12-78); BILIRUBIN,DIRECT < 0.1 MG/DL (0.0-0.2); BILIRUBIN,TOTAL 0.2 MG/DL (0.2-1.0); BLOOD UREA NITROGEN 12 MG/DL (7-18); CALCIUM LEVEL 8.9 MG/DL (8.5-10.1); CARBON DIOXIDE LEVEL 25 MEQ/L (21-32); CHLORIDE LEVEL 108 MEQ/L (98-107); CK-MB VALUE MASS < 1.0 NG/ML (<3.6); CPK CREATINE PHOSPHOKINASE 72 U/L (26-192); CREATININE FOR GFR 0.52 MG/DL (0.55-1.30); GLOMERULAR FILTRATION RATE > 60.0 (>51); GLUCOSE, FASTING 85 MG/DL (70-100); MB/CK RELATIVE INDEX 1.39 (< OR =4); NT-PRO BNP 55 PG/ML (<125); POTASSIUM SERUM 4.5 MEQ/L (3.5-5.1); SODIUM LEVEL 134 MEQ/L (136-145); TOTAL PROTEIN 7.2 GM/DL (6.4-8.2); TROPONIN I < 0.02 NG/ML (< 0.10)
[2020-06-23] MEDS ORDERED: PRED20TA PO (07:18)
[2020-06-23] MEDS ORDERED: ALBU83IN NEB (07:18)
--- NOTE | 2020-07-13 12:34 | ECGEPIP ---
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
--- NOTE | 2020-07-25 10:42 | REP ---
CHEST X-RAY: 2-VIEWS HISTORY: Dyspnea and cough. COMPARISON: Chest x-ray 02/27/2020. FINDINGS: The lungs are mildly hyperinflated, but free of infiltrate. Pleural angles are sharp. Heart size is normal. The aorta is calcific. There are degenerative changes in the thoracic spine. Pulmonary vasculature is not increased. Monitoring electrodes are seen. IMPRESSION: No active disease. MTDD
== END 2020-06-23 07:29 | disposition home or self-care (01) ==
LOC: M ED 04:18
DX: J45.909 Unspecified asthma, uncomplicated (principal); G35 Multiple sclerosis; M51.34 Other intervertebral disc degeneration, thoracic region; F17.210 Nicotine dependence, cigarettes, uncomplicated; Z88.2 Allergy status to sulfonamides; Z88.6 Allergy status to analgesic agent; Z79.51 Long term (current) use of inhaled steroids; Z79.899 Other long term (current) drug therapy
CPT/HCPCS: 36415; 71046; 80048; 80076; 82550; 82553; 83605; 83880; 85025; 93005; 93041; 94760; 99285; J2930

== ENCOUNTER → 2020-07-06 | Outpatient (REF) | payer MEDICAID ==
[~2020-07-06] MED LIST changes: +ACET-683 PO; +ACET-897 PO; +ALBU83IN NEB; +CEFU1TAB22 PO; +INDE60CA4 PO; +LISI10TA4 PO; +MONT10TA4 PO; +NYST50SS SS; +PROP20TA PO; +QUET100T2; +SERO1TAB PO
== END ==
LOC: M LAB REF 21:12
PROVIDERS: ATTEND Physician Assistant
DX: Z20.828 Contact with and (suspected) exposure to other viral communicable diseases (principal)

== ENCOUNTER 2020-07-12 13:56 | Emergency (ER) | payer MEDICAID ==
[~2020-07-12] VITALS: Ht 152.4 cm; Wt 85.2 kg
[~2020-07-12 13:56] MED LIST changes: -ACET-683 PO; -ACET-897 PO; -CEFU1TAB22 PO; -INDE60CA4 PO; -LISI10TA4 PO; -MONT10TA4 PO; -NYST50SS SS; -PROP20TA PO; -QUET100T2; -SERO1TAB PO
[2020-07-12] MEDS ORDERED: AZIT-12 PO (14:03)
[2020-07-12] MEDS ORDERED: CEFU1TAB22 PO (14:03)
[2020-07-12] MEDS ORDERED: COMBIVENT RESPIMAT 100-20MCG INHALER 4GM INH ONE (15:30)
[2020-07-12 16:30] VITALS: BP 131/83
[2020-07-12] MEDS ORDERED: IPRA0.00 NEB (16:30)
== END 2020-07-12 16:34 | disposition home or self-care (01) ==
LOC: M ED 13:56
DX: J45.901 Unspecified asthma with (acute) exacerbation (principal); I10 Essential (primary) hypertension; G35 Multiple sclerosis; K21.9 Gastro-esophageal reflux disease without esophagitis; F31.9 Bipolar disorder, unspecified; F17.210 Nicotine dependence, cigarettes, uncomplicated; Z88.1 Allergy status to other antibiotic agents; Z88.2 Allergy status to sulfonamides; Z88.8 Allergy status to other drugs, medicaments and biological substances; Z79.51 Long term (current) use of inhaled steroids; Z79.899 Other long term (current) drug therapy

== ENCOUNTER 2020-07-30 08:58 | Emergency (ER) | payer MEDICAID ==
[~2020-07-30] VITALS: Ht 152.4 cm; Wt 84.1 kg
[~2020-07-30 08:58] MED LIST changes: +CEFU1TAB22 PO
[2020-07-30 10:39] VITALS: BP 148/87
== END 2020-07-30 10:44 | disposition home or self-care (01) ==
LOC: M ED 08:58
DX: F43.20 Adjustment disorder, unspecified (principal); F32.9 Major depressive disorder, single episode, unspecified; K21.9 Gastro-esophageal reflux disease without esophagitis; I10 Essential (primary) hypertension; F17.200 Nicotine dependence, unspecified, uncomplicated; J45.909 Unspecified asthma, uncomplicated; Z79.51 Long term (current) use of inhaled steroids; Z79.899 Other long term (current) drug therapy; Z88.1 Allergy status to other antibiotic agents; Z88.6 Allergy status to analgesic agent

== ENCOUNTER 2020-08-20 07:44 | Emergency (ER) | payer MEDICAID ==
[~2020-08-20] VITALS: Ht 154.9 cm; Wt 86.4 kg
[2020-08-20] MEDS ORDERED: KLON0.5T (07:56)
[2020-08-20] MEDS ORDERED: QUET100T2 (07:56)
[2020-08-20] MEDS ORDERED: ACET-683 PO (07:56)
[2020-08-20] MEDS ORDERED: ONDANSETRON 4 MG ORAL DISINTEGRATING TAB PO ONE (08:30)
[2020-08-20 08:46] LABS: BASO # 0.1 10^3/uL (0.0-0.2); BASO % 1.1 % (0.0-1.0); EOS # 0.3 10^3/uL (0.0-0.5); EOS % 3.1 % (0.0-3.0); HEMATOCRIT 40.5 % (36.0-47.0); HEMOGLOBIN 12.9 g/dl (12.0-15.5); LYMPH # 2.7 10^3/uL (1.5-5.0); LYMPH % 33.2 % (24.0-44.0); MEAN CORPUSCULAR HEMOGLOBIN 29.1 pg (27.0-33.0); MEAN CORPUSCULAR HGB CONC 31.9 g/dl (32.0-36.5); MEAN CORPUSCULAR VOLUME 91.4 fl (80.0-96.0); MONO # 0.7 10^3/uL (0.0-0.8); MONO % 8.8 % (0.0-5.0); NEUTROPHILS # 4.3 10^3/uL (1.5-8.5); NEUTROPHILS % 53.4 % (36.0-66.0); PLATELET COUNT, AUTOMATED 328 10^3/uL (150-450); RED BLOOD COUNT 4.43 10^6/uL (4.00-5.40)
[2020-08-20 09:05] LABS: ALBUMIN 3.4 GM/DL (3.2-5.2); ALT/SGPT 14 U/L (12-78); BILIRUBIN,DIRECT < 0.1 MG/DL (0.0-0.2); BILIRUBIN,TOTAL 0.1 MG/DL (0.2-1.0); BLOOD UREA NITROGEN 12 MG/DL (7-18); CALCIUM LEVEL 8.8 MG/DL (8.5-10.1); CARBON DIOXIDE LEVEL 25 MEQ/L (21-32); CHLORIDE LEVEL 107 MEQ/L (98-107); CREATININE FOR GFR 0.59 MG/DL (0.55-1.30); GLOMERULAR FILTRATION RATE > 60.0 (>51); GLUCOSE, FASTING 96 MG/DL (70-100); LIPASE 133 U/L (73-393); POTASSIUM SERUM 4.2 MEQ/L (3.5-5.1); SODIUM LEVEL 139 MEQ/L (136-145); TOTAL PROTEIN 7.2 GM/DL (6.4-8.2)
[2020-08-20] MEDS ORDERED: NORCO, ANEXSIA 5/325MG TABLET (HYDROcodone/ACETAMINOPHEN) PO ONE (09:15)
[2020-08-20 09:30] VITALS: BP 138/75
[2020-08-20] MEDS ORDERED: ZOFR8TAB24 PO (09:49)
== END 2020-08-20 09:58 | disposition home or self-care (01) ==
LOC: M ED 07:44
DX: R11.2 Nausea with vomiting, unspecified (principal); R19.7 Diarrhea, unspecified; M79.10 Myalgia, unspecified site; R42 Dizziness and giddiness; I10 Essential (primary) hypertension; E78.5 Hyperlipidemia, unspecified; K21.9 Gastro-esophageal reflux disease without esophagitis; G35 Multiple sclerosis; J44.9 Chronic obstructive pulmonary disease, unspecified; Z88.2 Allergy status to sulfonamides; Z88.8 Allergy status to other drugs, medicaments and biological substances; Z79.51 Long term (current) use of inhaled steroids; Z79.899 Other long term (current) drug therapy
CPT/HCPCS: 36415; 80048; 80076; 83690; 85025; 87486; 87581; 87633; 87798; 99283; Q0162

== ENCOUNTER 2020-09-07 06:14 | Observation (INO) | payer MEDICAID ==
[~2020-09-07] VITALS: Ht 152.4 cm; Wt 81.1 kg
[~2020-09-07 06:14] MED LIST changes: +ACET-683 PO; +QUET100T2
[2020-09-07] MEDS ORDERED: MONT10TA4 PO (06:37)
[2020-09-07] MEDS ORDERED: SERO1TAB PO (06:37)
[2020-09-07 07:14] LABS: HEMATOCRIT 48.8 % (36.0-47.0); HEMOGLOBIN 16.3 g/dl (12.0-15.5); MEAN CORPUSCULAR HEMOGLOBIN 29.6 pg (27.0-33.0); MEAN CORPUSCULAR HGB CONC 33.4 g/dl (32.0-36.5); MEAN CORPUSCULAR VOLUME 88.6 fl (80.0-96.0); PLATELET COUNT, AUTOMATED 421 10^3/uL (150-450); RED BLOOD COUNT 5.51 10^6/uL (4.00-5.40); WHITE BLOOD COUNT 10.2 10^3/uL (4.0-10.0)
[2020-09-07] MEDS ORDERED: LORazepam 2 MG/ML VIAL IV STA (07:29)
[2020-09-07] MEDS ORDERED: NS 1,000 ML IV SCH ×2 (07:30→10:00)
[2020-09-07 07:43] LABS: AMPHETAMINES LEVEL URINE NEGATIVE (NEGATIVE); BARBITURATES URINE NEGATIVE (NEGATIVE); BENZODIAZEPINES URINE NEGATIVE (NEGATIVE); CANNABINOIDS URINE NEGATIVE (NEGATIVE); COCAINE METABOLITE URINE NEGATIVE (NEGATIVE); METHADONE URINE NEGATIVE (NEGATIVE); OPIATES URINE NEGATIVE (NEGATIVE); PHENCYCLIDINE URINE NEGATIVE (NEGATIVE)
[2020-09-07 08:03] LABS: ACETAMINOPHEN LEVEL < 2.0 UG/ML (10.0-30.0); ALBUMIN 4.1 GM/DL (3.2-5.2); ALT/SGPT 30 U/L (12-78); BILIRUBIN,DIRECT < 0.1 MG/DL (0.0-0.2); BILIRUBIN,TOTAL 0.3 MG/DL (0.2-1.0); BLOOD UREA NITROGEN 9 MG/DL (7-18); CARBON DIOXIDE LEVEL 21 MEQ/L (21-32); CHLORIDE LEVEL 103 MEQ/L (98-107); CPK CREATINE PHOSPHOKINASE 71 U/L (26-192); CREATININE FOR GFR 0.62 MG/DL (0.55-1.30); GLOMERULAR FILTRATION RATE > 60.0 (>51); GLUCOSE, FASTING 138 MG/DL (70-100); POTASSIUM SERUM 3.8 MEQ/L (3.5-5.1); SALICYLATE LEVEL 5.8 MG/DL (5.0-30.0); SODIUM LEVEL 136 MEQ/L (136-145); T UPTAKE 32 % (30-39); THYROID STIMULATING HORMONE 0.602 uIU/ML (0.358-3.740); THYROXINE (T4) 12.4 UG/DL (4.5-12.0); TOTAL PROTEIN 8.4 GM/DL (6.4-8.2)
[2020-09-07 08:04] LABS: VENOUS BASE EXCESS -3.9 (-2.0-2.0); VENOUS HCO3 18.2 MEQ/L (23.0-27.0); VENOUS O2 SATURATION 99.3 % (60.0-80.0); VENOUS PARTIAL PRESSURE O2 207.1 mmHg (30.0-50.0); VENOUS PH 7.447 UNITS (7.330-7.430); VENOUS STANDARD HCO3 21.3 MEQ/L
[2020-09-07] MEDS ORDERED: ACET-897 PO (09:25)
[2020-09-07] MEDS ORDERED: SYMB80INH INH (09:25)
[2020-09-07] MEDS ORDERED: ONDA8TAB10 PO (09:25)
[2020-09-07] MEDS ORDERED: CLON0.5T2 PO (09:25)
[2020-09-07] MEDS ORDERED: IPRA0.00 INH (09:25)
[2020-09-07] MEDS ORDERED: clonazePAM 0.5 MG TAB PO PRN (10:00)
[2020-09-07] MEDS ORDERED: ACETAMINOPHEN 500 MG TAB PO PRN (10:00)
[2020-09-07] MEDS ORDERED: ALBUTEROL 90 MCG/ACT 8GM HFA INHALER INH PRN (10:00)
[2020-09-07] MEDS ORDERED: CETIRIZINE (ZyrTEC) 10 MG TAB PO PRN (10:00)
[2020-09-07] MEDS ORDERED: IPRATROPIUM 0.5MG/ALBUTEROL 2.5MG INH SOL UD 3ML (DUONEB) INH PRN (10:00)
[2020-09-07 11:09] LABS: INR 0.99; PROTHROMBIN TIME 13.3 SECONDS (12.5-14.3)
[2020-09-07 11:10] LABS: PARTIAL THROMBOPLASTIN TIME 26.7 SECONDS (24.2-38.5)
[2020-09-07] MEDS: lamoTRIgine 100MG TAB PO SCH ×2 (11:14→20:15)
[2020-09-07] MEDS: lamoTRIgine 25 MG TAB PO SCH ×2 (11:14→20:16)
[2020-09-07] MEDS: PANTOPRAZOLE 40MG TAB (PROTONIX) PO SCH (11:15)
[2020-09-07] MEDS: lisinopriL 10 MG TAB PO SCH (11:15)
[2020-09-07 11:20] VITALS: BP 246/130
[2020-09-07] MEDS ORDERED: hydrALAZINE 20MG/ML 1ML VIAL (J0360 PER 20MG) IV STA (11:34)
[2020-09-07 12:00] VITALS: BP 208/109
[2020-09-07] MEDS ORDERED: SLF 3 ML SYR IV PRN (12:45)
[2020-09-07] MEDS: NYSTATIN 500,000 U/5 ML SUSP UDC SS SCH ×2 (13:52→18:41)
[2020-09-07] MEDS: PARoxetine 10MG TABLET PO SCH (13:53)
[2020-09-07] MEDS: SLF 3 ML SYR IV SCH ×2 (14:00→22:11)
--- NOTE | 2020-09-07 14:00 | HPEPDOC ---
General Date of Admission Sep 07, 2020 at 06:15 Date of Service: Sep 07, 2020 Chief Complaint The patient is a 55-year-old female admitted with a reason for visit of Altered Mental State Toxic Encephalopathy. Source: Patient History of Present Illness Ms. Melgar is a 55 year old female with multiple sclerosis, PTSD, and bipolar who is here for AMS. She has multiple stressors in her life. Her mom, who is her last living relative, has Alzheimer's dementia and her best friend is having an AKA vs BKA. About 2 to 3 days ago, she starting to twitching her her hands with diaphoresis and blurry vision. Yesterday, she started drinking a few shots. Alcohol did help with the twitching a little bit, but afterwards, she did not felt well. She came to the ED for further evaluation. While in the ED, she had myoclonic jerks and her reflexes were easy to obtain. She was also tachycardic. She was given IVF and a dose of Ativan which did help resolve her twitching. She does take clonazepam at home, but her urine tox was negative for benzodiazepine. Otherwise denies fever/chills, chest pain, dyspnea, abdominal pain, or dysuria. Home Medications Scheduled Budesonide/Formoterol (Symbicort 80-4.5 Mcg Inhaler) 6.9 Gm Hfa.aer.ad, 2 PUFF I NH BID, (Reported) Clonazepam (Clonazepam) 0.5 Mg Tablet, 0.5 MG PO BID, (Reported) Esomeprazole Magnesium (Nexium) 40 Mg Cap, 40 MG PO DAILY, (Reported) Lamotrigine (Lamictal) 150 Mg Tab, 150 MG PO BID, (Reported) Lisinopril (Lisinopril) 20 Mg Tab, 20 MG PO DAILY, (Reported) Montelukast Sodium (Montelukast Sodium) 10 Mg Tablet, 10 MG PO QHS, (Reported) Paroxetine HCl (Paxil) 30 Mg Tablet, 30 MG PO DAILY, (Reported) Quetiapine Fumarate (Seroquel) 100 Mg Tablet, 100 MG PO QHS, (Reported) Scheduled PRN Acetaminophen (Tylenol Extra Strength) 500 Mg Tablet, 1,000 MG PO Q6H PRN for PAIN, (Reported) Albuterol Sulfate (Ventolin Hfa) 108 Mcg/Act Aer, 2 PUFFS INH Q6H PRN for SHORTNESS OF BREATH, (Reported) Cetirizine HCl (Cetirizine HCl) 10 Mg Tab, 10 MG PO DAILY PRN for ALLERGIES, (Reported) Ipratropium/Albuterol Sulfate (Iprat-Albut 0.5-3(2.5) mg/3 ml) 3 Ml Ampul.neb, 1 LUCIO INH QID PRN for SHORTNESS OF BREATH, (Reported) Ondansetron HCl (Ondansetron HCl) 8 Mg Tablet, 8 MG PO TID PRN for NAUSEA OR VOMITING, (Reported) Allergies Coded Allergies: metronidazole (Verified Allergy, Intermediate, RASH, 01/05/20) naproxen (Verified Allergy, Intermediate, RASH, 01/05/20) NSAIDS (Non-Steroidal Anti-Inflamma (Verified Allergy, Unknown, 01/05/20) Sulfa (Sulfonamide Antibiotics) (Verified Allergy, Unknown, 01/05/20) Past Medical History Medical History 1. Multiple sclerosis 2. Right Optic Neuritis 3. Hypertension 4. Severe Asthma 5. COPD 6. Migraines 7. Allergies to ragweed, [place], dust 8. Bipolar disorder per history, depressive episode 9. PTSD 10. H/O Alcohol use disorder 11. Tobacco use disorder 12. Seizures Surgical History 1. Left ovary cystectomy 1986 2. Cholecystectomy 2006 Family History Father: [place] Mother: Breast cancer and Alzheimer's dementia Social History * Smoker: current smoker (Smoked for about 25 years, 1ppd) Alcohol: rarely (Last drink yesterday) Drugs: denies A-FIB/CHADSVASC A-FIB History Current/History of A-Fib/PAF?: No Review of Systems Constitutional: Reports: Other (diaphoresis); Denies: Chills, Fever Eyes: Reports: Vision change (Blurry vision) Skin: Denies: Rash Pulmonary: Denies: Dyspnea Cardiovascular: Denies: Chest Pain Gastrointestinal: Denies: Nausea, Abdominal Pain Genitourinary: Denies: Dysuria Hematologic: Denies: Bruising Endocrine: Reports: Polydipsia, Polyuria; Denies: Polyphagia Neurological: Reports: Other Symptoms (tremors) Physical Examination General Exam: Positive: Alert, Cooperative Eye Exam: Positive: EOMI; Negative: Sclera icteric ENT Exam: Positive: Atraumatic Neck Exam: Positive: Supple Chest Exam: Positive: Clear to auscultation Heart Exam: Positive: Tachycardic, Regular Rhythm Abdomen Exam: Positive: Normal bowel sounds, Soft; Negative: Tenderness Extremity Exam: Negative: Edema Skin Exam: Positive: Nl turgor and temperature Neuro Exam: Positive: Cranial Nerves 3-12 NL Vital Signs Vital Signs Date Time Temp Pulse Resp B/P (MAP) Pulse Ox O2 Delivery O2 Flow Rate FiO2 09/07/20 09:45 98 18 129/76 (93) 94 Room Air 09/07/20 08:16 98.5 Laboratory Data Labs 24H Laboratory Tests 2 09/07/20 06:48: Urine Opiates Screen NEGATIVE, Urine Methadone Screen NEGATIVE, Urine Barbiturates Screen NEGATIVE, Urine Phencyclidine Screen NEGATIVE, Urine Amphetamines Screen NEGATIVE, Urine Benzodiazepines Screen NEGATIVE, Urine Cocaine Metabolite Screen NEGATIVE, Urine Cannabinoids Screen NEGATIVE 09/07/20 06:59: Nucleated Red Blood Cells % (auto) 0.0, Anion Gap 12, Glomerular Filtration Rate > 60.0, Calcium Level 9.0, Total Bilirubin 0.3, Direct Bilirubin < 0.1, Aspartate Amino Transf (AST/SGOT) 26, Alanine Aminotransferase (ALT/SGPT) 30, Al kaline Phosphatase 134H, Total Creatine Kinase 71, Total Protein 8.4H, Albumin 4.1, Albumin/Globulin Ratio 1.0L, Thyroid Stimulating Hormone (TSH) 0.602, Free Thyroxine Index 4.0, Thyroxine (T4) 12.4H, Triiodothyronine (T3) Uptake 32, Salicylates Level 5.8, Acetaminophen Level < 2.0L, Ethyl Alcohol Level 0.190H 09/07/20 07:00: 09/07/20 07:40: Blood Gas Bicarbonate Standard 21.3, Venous Blood pH 7.447H, Venous Blood Partial Pressure CO2 27.0L, Venous Blood Partial Pressure O2 207.1H, Venous Blood Total Carbon Dioxide 19.0L, Venous Blood HCO3 18.2L, Venous Blood Oxygen Saturation 99.3H, Venous Blood Base Excess -3.9L CBC/BMP Laboratory Tests 09/07/20 06:59 Assessment/Plan Ms. Melgar is a 55 year old female with multiple sclerosis, PTSD, and bipolar who is here for toxic encephalopathy secondary to medication. She has diaphoresis, anxiety, and brisk reflexes which increases suspicion for serotonin syndrome. She did improve with Ativan which may suggest benzodiazepine withdrawal as her Utox was negative for benzodiazepine. In respect to her tremors, alcohol seems to improve these symptoms. Will try a course of propranolol Will monitor her overnight and provide supportive care. Plan / VTE VTE Prophylaxis Ordered?: Yes Plan Plan 1. Toxic encephalopathy -Benzodiazepine withdrawal vs serotonin syndrome -Will monitor overnight and provide supportive care. -Will check lamotrigine level, ammonia, and UA 2. Hypertensive urgency -Continue Lisinopril and added on propranolol -Monitor blood pressure 3. Tremors -May be related to toxic encephalopathy vs essential tremor -Supportive care -Trial of propranolol 4. COPD -Stable -Continue duonebs, and symbicort 5. Seizure disorder -Continue lamotrigine 6. Anxiety/Depression -PRN Clonazepam and continue paroxetine 7. Insomnia -Seroquel 8. DVT ppx -SCD and TEDs ISAÍAS PEDERSON DO Sep 07, 2020 10:30
[2020-09-07 14:09] VITALS: BP_SYST 158; BP_DIAS 100; BP_DIAS 60
[2020-09-07] MEDS: PROPRANOLOL 60 MG LA CAP PO SCH (15:07)
[2020-09-07 16:00] VITALS: BP 138/95
[2020-09-07 19:31] VITALS: BP 138/70
[2020-09-07] MEDS: SYMBICORT 80/4.5MCG INHALER 6GM INH SCH (20:00)
[2020-09-07] MEDS ORDERED: MONTELUKAST 10 MG TAB PO SCH (21:00)
[2020-09-07] MEDS ORDERED: QUEtiapine FUMARATE 100 MG TAB PO SCH (21:00)
[2020-09-08] MEDS: NYSTATIN 500,000 U/5 ML SUSP UDC SS SCH ×3 (00:51→12:00)
[2020-09-08 04:00] VITALS: BP 133/81
[2020-09-08 05:34] LABS: HEMATOCRIT 38.4 % (36.0-47.0); MEAN CORPUSCULAR HEMOGLOBIN 28.9 pg (27.0-33.0); MEAN CORPUSCULAR HGB CONC 32.6 g/dl (32.0-36.5); MEAN CORPUSCULAR VOLUME 88.9 fl (80.0-96.0); RED BLOOD COUNT 4.32 10^6/uL (4.00-5.40); WHITE BLOOD COUNT 6.5 10^3/uL (4.0-10.0)
[2020-09-08 05:39] LABS: HEMOGLOBIN 12.5 g/dl (12.0-15.5); PLATELET COUNT, AUTOMATED 282 10^3/uL (150-450)
[2020-09-08 06:09] LABS: BLOOD UREA NITROGEN 11 MG/DL (7-18); CALCIUM LEVEL 8.9 MG/DL (8.5-10.1); CARBON DIOXIDE LEVEL 25 MEQ/L (21-32); CHLORIDE LEVEL 105 MEQ/L (98-107); CREATININE FOR GFR 0.56 MG/DL (0.55-1.30); FREE T4 1.01 NG/DL (0.76-1.46); GLOMERULAR FILTRATION RATE > 60.0 (>51); GLUCOSE, FASTING 114 MG/DL (70-100); POTASSIUM SERUM 3.8 MEQ/L (3.5-5.1); SODIUM LEVEL 136 MEQ/L (136-145)
[2020-09-08] MEDS: SLF 3 ML SYR IV SCH (06:24)
[2020-09-08] MEDS: SYMBICORT 80/4.5MCG INHALER 6GM INH SCH ×2 (07:16→18:16)
[2020-09-08 08:00] VITALS: BP 130/80
[2020-09-08 08:15] VITALS: BP 133/81
[2020-09-08] MEDS: PARoxetine 10MG TABLET PO SCH (08:15)
[2020-09-08] MEDS: lamoTRIgine 100MG TAB PO SCH (08:15)
[2020-09-08] MEDS: lisinopriL 10 MG TAB PO SCH (08:15)
[2020-09-08] MEDS: lamoTRIgine 25 MG TAB PO SCH (08:16)
[2020-09-08] MEDS: PANTOPRAZOLE 40MG TAB (PROTONIX) PO SCH (08:16)
[2020-09-08] MEDS: PROPRANOLOL 60 MG LA CAP PO SCH (08:18)
--- NOTE | 2020-09-08 09:03 | ECGEPIP ---
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
[2020-09-08] MEDS ORDERED: LISI10TA4 PO (09:52)
[2020-09-08] MEDS ORDERED: INDE60CA4 PO (09:52)
[2020-09-08] MEDS ORDERED: NYST50SS SS (09:52)
--- NOTE | 2020-09-08 18:40 | DS.PDOC ---
Discharge Summary General Date of Admission Sep 07, 2020 at 06:15 Date of Discharge Sep 08, 2020 Attending Physician: ISAÍAS PEDERSON DO Discharge Summary PROCEDURES PERFORMED DURING STAY: None ADMITTING DIAGNOSES: 1. Toxic encephalopathy 2. Hypertensive urgency 3. Tremors 4. COPD 5. Seizure disorder 6. Anxiety/Depression 7. Insomnia DISCHARGE DIAGNOSES: 1. Toxic encephalopathy 2. Hypertensive urgency 3. Essential Tremors 4. COPD 5. Seizure disorder 6. Anxiety/Depression 7. Insomnia 8. Oral thrush COMPLICATIONS/CHIEF COMPLAINT: Altered Mental State Toxic Encephalopathy. HISTORY OF PRESENT ILLNESS: Ms. Melgar is a 55 year old female with multiple sclerosis, PTSD, and bipolar who is here for AMS. She has multiple stressors in her life. Her mom, who is her last living relative, has Alzheimer's dementia and her best friend is having an AKA vs BKA. About 2 to 3 days ago, she starting to twitching her her hands with diaphoresis and blurry vision. Yesterday, she started drinking a few shots. Alcohol did help with the twitching a little bit, but afterwards, she did not felt well. She came to the ED for further evaluation. While in the ED, she had myoclonic jerks and her reflexes were easy to obtain. She was also tachycardic. She was given IVF and a dose of Ativan which did help resolve her twitching. She does take clonazepam at home, but her urine tox was negative for benzodiazepine. Otherwise denies fever/chills, chest pain, dyspnea, abdominal pain, or dysuria. There was concern that she was having benzodiazepine withdrawal vs serotonin syndrome. She was admitted for observation HOSPITAL COURSE: While here, she was tachycardic and hypertensive. Blood pressure peaked at 246/130. She was given IV hydralazine and propranolol. Which helped with her blood pressure. She felt that the propranolol helped kept her calm and helped resolve her twitching. The next day, her lisinopril was cut in half to prevent dropping her blood pressure too quickly. Otherwise, she had oral thrush which may be secondary to inhalers. Recommended that she rinse her mouth after using inhalers and to take nystatin swish and swallow. Today, She felt well. Denied any fever/chills, chest pain, dyspnea, abdominal pain, or dysuria. She felt ready for home and was subsequently discharged. DISCHARGE MEDICATIONS: Please see below. ALLERGIES: Please see below. PHYSICAL EXAMINATION ON DISCHARGE: VITAL SIGNS: Please see below. GENERAL: Comfortable, in no apparent distress. HEENT: Head normocephalic/atraumatic, EOMI, sclera clear. NECK: Supple, no JVD. RESPIRATORY: Lungs clear to auscultation bilaterally, no rales, wheeze or rhonchi. CARDIOVASCULAR: Regular rate and rhythm. ABDOMEN: Soft, nontender, no guarding or rebound tenderness. Normal bowel sounds. MUSCLE SKELETAL: Muscle strength 5/5 in all extremities. NEUROLOGICAL: CN 312 grossly intact, no focal deficits noted. PSYCHOLOGICAL: Normal mood and affect LABORATORY DATA: Please see below. PROGNOSIS: Stable ACTIVITY: As tolerated DIET: As tolerated DISCHARGE PLAN: Home DISCHARGE INSTRUCTIONS: 1. Follow-up with her PCP within a week 2. Measure blood pressure 2 times a day at home and record results. Please bring this to your next PCP appointment 3. When you he is your inhalers please rinse mouth. Continue nystatin swish and swallow for one week DISCHARGE CONDITION: Stable Total time spent on discharge planning, discharge summary, and medication reconciliation: 35 minutes Vital Signs/I&Os Vital Signs Date Time Temp Pulse Resp B/P (MAP) Pulse Ox O2 Delivery O2 Flow Rate FiO2 09/08/20 08:15 133/81 09/08/20 08:00 97.0 73 18 98 Room Air I&O- Last 24 Hours up to 6 AM 09/08/20 06:00 Intake Total 2720 ml Output Total 450 ml Balance 2270 ml Laboratory Data Labs 24H Laboratory Tests 2 09/08/20 05:04: Nucleated Red Blood Cells % (auto) 0.0, Anion Gap 6L, Glomerular Filtration Rate > 60.0, Calcium Level 8.9, Thyroid Stimulating Hormone (TSH) 1.340, Free Thyroxine 1.01 CBC/BMP Laboratory Tests 09/08/20 05:04 Discharge Medications Scheduled Budesonide/Formoterol (Symbicort 80-4.5 Mcg Inhaler) 6.9 Gm Hfa.aer.ad, 2 PUFF INH BID, (Reported) Clonazepam (Clonazepam) 0.5 Mg Tablet, 0.5 MG PO BID, (Reported) Esomeprazole Magnesium (Nexium) 40 Mg Cap, 40 MG PO DAILY, (Reported) Lamotrigine (Lamictal) 150 Mg Tab, 150 MG PO BID, (Reported) Lisinopril (Lisinopril) 10 Mg Tablet, 10 MG PO DAILY Montelukast Sodium (Montelukast Sodium) 10 Mg Tablet, 10 MG PO QHS, (Reported) Nystatin (Nystatin Oral Susp) 100,000 Unit/1 Ml Oral.susp, 5 ML SS Q6H Paroxetine HCl (Paxil) 30 Mg Tablet, 30 MG PO DAILY, (Reported) Propranolol Hcl (Inderal LA) 60 Mg Cap.sa.24h, 60 MG PO DAILY Quetiapine Fumarate (Seroquel) 100 Mg Tablet, 100 MG PO QHS, (Reported) Scheduled PRN Acetaminophen (Tylenol Extra Strength) 500 Mg Tablet, 1,000 MG PO Q6H PRN for PAIN, (Reported) Albuterol Sulfate (Ventolin Hfa) 108 Mcg/Act Aer, 2 PUFFS INH Q6H PRN for SHORTNESS OF BREATH, (Reported) Cetirizine HCl (Cetirizine HCl) 10 Mg Tab, 10 MG PO DAILY PRN for ALLERGIES, (Reported) Ipratropium/Albuterol Sulfate (Iprat-Albut 0.5-3(2.5) mg/3 ml) 3 Ml Ampul.neb, 1 LUCIO INH QID PRN for SHORTNESS OF BREATH, (Reported) Ondansetron HCl (Ondansetron HCl) 8 Mg Tablet, 8 MG PO TID PRN for NAUSEA OR VOMITING, (Reported) Allergies Coded Allergies: metronidazole (Verified Allergy, Intermediate, RASH, 01/05/20) naproxen (Verified Allergy, Intermediate, RASH, 01/05/20) NSAIDS (Non-Steroidal Anti-Inflamma (Verified Allergy, Unknown, 01/05/20) Sulfa (Sulfonamide Antibiotics) (Verified Allergy, Unknown, 01/05/20) ISAÍAS PEDERSON DO Sep 08, 2020 18:40
[2020-09-08 20:00] VITALS: BP 106/57
== END 2020-09-08 12:56 | disposition home or self-care (01) ==
LOC: M ED 06:14 → M ED INP 06:15 → UNDOADMOB 09:49 → M ED INP 09:49 → ENRESERV 10:28 → M PCU 11:01
PROVIDERS: ADMIT Internal Medicine; ATTEND Internal Medicine
DX: G92 Toxic encephalopathy (principal); I16.0 Hypertensive urgency; G25.0 Essential tremor; J44.9 Chronic obstructive pulmonary disease, unspecified; G40.909 Epilepsy, unspecified, not intractable, without status epilepticus; F41.9 Anxiety disorder, unspecified; G47.00 Insomnia, unspecified; B37.0 Candidal stomatitis; F43.10 Post-traumatic stress disorder, unspecified; F31.9 Bipolar disorder, unspecified; G35 Multiple sclerosis; Z79.899 Other long term (current) drug therapy; Z88.2 Allergy status to sulfonamides; Z88.8 Allergy status to other drugs, medicaments and biological substances; H46.9 Unspecified optic neuritis; F17.218 Nicotine dependence, cigarettes, with other nicotine-induced disorders; F10.10 Alcohol abuse, uncomplicated
CPT/HCPCS: 36415; 70450; 80048; 80076; 80175; 80307; 81001; 82140; 82550; 82803; 84436; 84439; 84443; 84479; 85027; 85610; 85730; 93005; 93041; 94640; 96361; 96374; 96375; 99285; G0480; J0360; J2060

== ENCOUNTER 2020-09-14 10:04 | Emergency (ER) | payer MEDICAID ==
[~2020-09-14] VITALS: Ht 152.4 cm; Wt 85.4 kg
[~2020-09-14 10:04] MED LIST changes: +ACET-897 PO; +INDE60CA4 PO; +LISI10TA4 PO; +MONT10TA4 PO; +NYST50SS SS; +SERO1TAB PO
[2020-09-14 11:49] VITALS: BP 127/74
[2020-09-14] MEDS ORDERED: PROP20TA PO (11:57)
--- NOTE | 2020-09-14 19:01 | ECGEPIP ---
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
== END 2020-09-14 12:15 | disposition home or self-care (01) ==
LOC: M ED 10:04
DX: I10 Essential (primary) hypertension (principal); F17.200 Nicotine dependence, unspecified, uncomplicated; J45.909 Unspecified asthma, uncomplicated; Z88.1 Allergy status to other antibiotic agents; Z88.6 Allergy status to analgesic agent; Z88.8 Allergy status to other drugs, medicaments and biological substances

== ENCOUNTER 2020-10-01 08:06 | Emergency (ER) | payer MEDICAID ==
[~2020-10-01] VITALS: Ht 152.4 cm; Wt 86.7 kg
[2020-10-01 08:06] VITALS: BP 135/78
[~2020-10-01 08:06] MED LIST changes: -MONT10TA4 PO; +MONT5TAB2 PO; +PROP20TA PO
[2020-10-01] MEDS ORDERED: methylPREDNISolone 125MG 2ML VIAL IM ONE (09:00)
[2020-10-01] MEDS ORDERED: CYCLOBENZAPRINE 10MG TABLET PO ONE (09:00)
[2020-10-01] MEDS ORDERED: CYCL-707 PO (09:30)
== END 2020-10-01 09:39 | disposition home or self-care (01) ==
LOC: M ED 08:06
DX: M25.512 Pain in left shoulder (principal); I11.0 Hypertensive heart disease with heart failure; E78.5 Hyperlipidemia, unspecified; G35 Multiple sclerosis; G43.909 Migraine, unspecified, not intractable, without status migrainosus; J44.9 Chronic obstructive pulmonary disease, unspecified; F17.200 Nicotine dependence, unspecified, uncomplicated; Z88.2 Allergy status to sulfonamides; Z88.6 Allergy status to analgesic agent; Z79.899 Other long term (current) drug therapy
CPT/HCPCS: 96372; 99283; J2930

== ENCOUNTER → 2020-10-02 | Outpatient (REF) | payer MEDICAID ==
[~2020-10-02] MED LIST changes: +MONT10TA4 PO; -MONT5TAB2 PO
[2020-10-02 14:50] LABS: ALBUMIN 3.7 GM/DL (3.2-5.2); ALT/SGPT 15 U/L (12-78); BILIRUBIN,TOTAL 0.2 MG/DL (0.2-1.0); BLOOD UREA NITROGEN 16 MG/DL (7-18); CALCIUM LEVEL 9.3 MG/DL (8.5-10.1); CARBON DIOXIDE LEVEL 29 MEQ/L (21-32); CHLORIDE LEVEL 105 MEQ/L (98-107); CREATININE FOR GFR 0.66 MG/DL (0.55-1.30); GLOMERULAR FILTRATION RATE > 60.0 (>51); GLUCOSE, FASTING 101 MG/DL (70-100); SODIUM LEVEL 139 MEQ/L (136-145); TOTAL PROTEIN 7.4 GM/DL (6.4-8.2)
== END ==
LOC: M SFHCPLAZ 08:52
PROVIDERS: ATTEND Nurse Practitioner Adult Health
DX: Z00.00 Encounter for general adult medical examination without abnormal findings (principal)

== ENCOUNTER 2020-11-05 03:21 | Emergency (ER) | payer MEDICAID ==
[~2020-11-05] VITALS: Ht 152.4 cm; Wt 82.7 kg
[~2020-11-05 03:21] MED LIST changes: -MONT10TA4 PO; +MONT5TAB2 PO
[2020-11-05 04:30] VITALS: BP 130/80
== END 2020-11-05 04:42 | disposition home or self-care (01) ==
LOC: M ED 03:21
DX: I10 Essential (primary) hypertension (principal); J44.9 Chronic obstructive pulmonary disease, unspecified; F31.9 Bipolar disorder, unspecified; F17.200 Nicotine dependence, unspecified, uncomplicated

== ENCOUNTER 2020-11-06 12:36 | Emergency (ER) | payer MEDICAID ==
[~2020-11-06] VITALS: Ht 152.4 cm; Wt 86.4 kg
--- NOTE | 2020-11-06 12:55 | REP ---
INDICATION: CHEST PAIN. COMPARISON: Comparison study July 12, 2020. TECHNIQUE: Portable upright AP chest radiograph. FINDINGS: The lungs are well inflated and free of infiltrate. Pleural angles are sharp. Heart size is normal. Pulmonary vasculature is not increased. There are minimal linear fibrotic changes in the left base unchanged. IMPRESSION: No active disease. <Electronically signed by Saturnino Logan > 11/06/20 [id number]
[2020-11-06] MEDS ORDERED: NITROGLYCERIN 0.4 MG SUBL TABLET SL STA ×2 (13:03→14:24)
[2020-11-06 13:14] LABS: HEMATOCRIT 36.9 % (36.0-47.0); HEMOGLOBIN 11.8 g/dl (12.0-15.5); MEAN CORPUSCULAR HEMOGLOBIN 29.9 pg (27.0-33.0); MEAN CORPUSCULAR VOLUME 93.4 fl (80.0-96.0); PLATELET COUNT, AUTOMATED 232 10^3/uL (150-450); RED BLOOD COUNT 3.95 10^6/uL (4.00-5.40); WHITE BLOOD COUNT 8.6 10^3/uL (4.0-10.0)
--- NOTE | 2020-11-06 13:22 | REP ---
INDICATION: headache htn. COMPARISON: Comparison CT study September 07, 2020.. TECHNIQUE: Helical scanning is acquired. 5 mm axial images were reformatted. Coronal MPR images were generated. FINDINGS: Bone window settings demonstrate an intact bony calvarium. There is no evidence of skull fracture or incidental bony calvarial lesion. The visualized paranasal sinuses appear clear. No intraorbital abnormality is seen. On soft tissue window setting images; the lateral, third, and fourth ventricles are normal in size and position. Ann-white differentiation pattern is normal above and below the tentorium. There are is no evidence of intracranial hemorrhage. No mass, edema, infarction, or midline shift is seen. No extra-axial fluid collection is appreciated. There is mild vascular calcification in the distal internal carotid arteries bilaterally unchanged. IMPRESSION: Mild vascular calcification. Otherwise negative noncontrast head CT. <Electronically signed by Saturnino Logan > 11/06/20 [id number]
[2020-11-06 13:44] LABS: ATYPICAL LYMPH 6 % (0-5); BASOPHILS 2 % (0-1); EOSINOPHILS 2 % (0-3); LYMPHOCYTES 55 % (16-44); MONOCYTES 5 % (0-5); NEUTROPHILS 30 % (28-66); PLATELET ESTIMATE NORMAL (NORMAL)
[2020-11-06 13:49] LABS: BLOOD UREA NITROGEN 17 MG/DL (7-18); CALCIUM LEVEL 8.6 MG/DL (8.5-10.1); CARBON DIOXIDE LEVEL 24 MEQ/L (21-32); CHLORIDE LEVEL 108 MEQ/L (98-107); CREATININE FOR GFR 0.58 MG/DL (0.55-1.30); GLOMERULAR FILTRATION RATE > 60.0 (>51); GLUCOSE, FASTING 118 MG/DL (70-100); POTASSIUM SERUM 3.6 MEQ/L (3.5-5.1); SODIUM LEVEL 138 MEQ/L (136-145)
[2020-11-06] MEDS ORDERED: ISOVUE-370 76% 100ML VIAL As Ordered ONE (14:08)
--- NOTE | 2020-11-06 14:44 | REP ---
INDICATION: htn, chest pain, r/o dissection COMPARISON: None. TECHNIQUE: Axial contrast enhanced images from the thoracic inlet to the upper abdomen using aortic angiographic technique with multiplanar re-formations. 75 ml Isovue 370 intravenous contrast material administered without complication. This CT examination was performed using the following dose reduction techniques: Automated exposure control, adjustment of mA and/or kv according to the patient's size, and use of iterative reconstruction technique. FINDINGS: Thoracic aorta is normal in caliber and appearance without aneurysm or dissection. No significant atherosclerotic changes are identified. Heart and pericardium are normal. Pulmonary vasculature is normal caliber. Bilateral lung ventura are essentially clear with minimal linear scarring at the lingula and right middle lobe. No focal consolidation, effusion, or pneumothorax. No adenopathy. Tracheobronchial tree is patent. Musculoskeletal structures are intact. Limited upper abdomen demonstrates normal bilateral adrenal glands and evidence for prior cholecystectomy. IMPRESSION: 1. Normal thoracic aorta without aneurysm or dissection. No cardiomegaly. 2. No acute mediastinal or pleuroparenchymal process. <Electronically signed by Scooter Leija > 11/06/20 [id number]
[2020-11-06 15:14] LABS: ALBUMIN 3.3 GM/DL (3.2-5.2); ALT/SGPT 15 U/L (12-78); BILIRUBIN,DIRECT < 0.1 MG/DL (0.0-0.2); BILIRUBIN,TOTAL 0.2 MG/DL (0.2-1.0); CK-MB VALUE MASS 1.1 NG/ML (<3.6); CPK CREATINE PHOSPHOKINASE 83 U/L (26-192); FREE T4 1.03 NG/DL (0.76-1.46); LIPASE 250 U/L (73-393); MB/CK RELATIVE INDEX 1.33 (< OR =4); TOTAL PROTEIN 6.4 GM/DL (6.4-8.2); TROPONIN I < 0.02 NG/ML (< 0.10)
[2020-11-06 15:37] VITALS: BP 170/108
[2020-11-06 19:23] LABS: CK-MB VALUE MASS < 1.0 NG/ML (<3.6); CPK CREATINE PHOSPHOKINASE 82 U/L (26-192); MB/CK RELATIVE INDEX 1.22 (< OR =4); TROPONIN I < 0.02 NG/ML (< 0.10)
[2020-11-06 20:15] VITALS: BP 110/60
--- NOTE | 2020-11-07 06:15 | ECGEPIP ---
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
--- NOTE | 2020-11-07 06:30 | ECGEPIP ---
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
== END 2020-11-06 20:35 | disposition home or self-care (01) ==
LOC: M ED 12:36
DX: R07.9 Chest pain, unspecified (principal); I10 Essential (primary) hypertension; K21.9 Gastro-esophageal reflux disease without esophagitis; G35 Multiple sclerosis; J45.909 Unspecified asthma, uncomplicated; G43.909 Migraine, unspecified, not intractable, without status migrainosus; F43.10 Post-traumatic stress disorder, unspecified; F31.9 Bipolar disorder, unspecified; F17.200 Nicotine dependence, unspecified, uncomplicated; Z88.2 Allergy status to sulfonamides; Z88.6 Allergy status to analgesic agent; Z79.51 Long term (current) use of inhaled steroids; Z79.899 Other long term (current) drug therapy
CPT/HCPCS: 36415; 70450; 71045; 71275; 80048; 80076; 82550; 82553; 83690; 84439; 84443; 85025; 93005; 93041; 94760; 99285; Q9967

== ENCOUNTER 2021-01-17 06:36 | Emergency (ER) | payer MEDICAID, OTHER ==
[~2021-01-17] VITALS: Ht 152.4 cm; Wt 83.8 kg
[~2021-01-17 06:36] MED LIST changes: -CLIN150C14 PO; +CLIN150C15 PO; -LISI-538 PO; +LISI10TA22 PO; -LISI10TA4 PO; +LISI20TA33 PO; +METH-1164 PO; -METH1TAB40 PO; +MONT10TA10 PO; -MONT5TAB2 PO; -QUET1TAB10 PO; +QUET300T2 PO; +QUET50TA3 PO; -QUET5TAB PO; +SIME80CH5 PO; -SIME80TA PO
[2021-01-17] MEDS ORDERED: NS 500 ML IV ONE (07:05)
[2021-01-17 07:48] LABS: BASO # 0.1 10^3/uL (0.0-0.2); EOS # 0.2 10^3/uL (0.0-0.5); EOS % 3.1 % (0.0-3.0); HEMATOCRIT 43.2 % (36.0-47.0); HEMOGLOBIN 14.2 g/dl (12.0-15.5); LYMPH # 3.3 10^3/uL (1.5-5.0); LYMPH % 48.7 % (24.0-44.0); MEAN CORPUSCULAR HEMOGLOBIN 30.7 pg (27.0-33.0); MEAN CORPUSCULAR HGB CONC 32.9 g/dl (32.0-36.5); MEAN CORPUSCULAR VOLUME 93.5 fl (80.0-96.0); MONO # 0.8 10^3/uL (0.0-0.8); MONO % 11.5 % (2.0-8.0); NEUTROPHILS # 2.4 10^3/uL (1.5-8.5); NEUTROPHILS % 35.6 % (36.0-66.0); PLATELET COUNT, AUTOMATED 312 10^3/uL (150-450); RED BLOOD COUNT 4.62 10^6/uL (4.00-5.40); WHITE BLOOD COUNT 6.7 10^3/uL (4.0-10.0)
[2021-01-17 08:15] LABS: ALBUMIN 3.7 GM/DL (3.2-5.2); ALT/SGPT 21 U/L (12-78); BILIRUBIN,DIRECT < 0.1 MG/DL (0.0-0.2); BILIRUBIN,TOTAL 0.3 MG/DL (0.2-1.0); BLOOD UREA NITROGEN 11 MG/DL (7-18); CALCIUM LEVEL 9.7 MG/DL (8.5-10.1); CARBON DIOXIDE LEVEL 29 MEQ/L (21-32); CHLORIDE LEVEL 104 MEQ/L (98-107); CREATININE FOR GFR 0.54 MG/DL (0.55-1.30); GLOMERULAR FILTRATION RATE > 60.0 (>51); GLUCOSE, FASTING 103 MG/DL (70-100); LIPASE 96 U/L (73-393); POTASSIUM SERUM 4.3 MEQ/L (3.5-5.1); SODIUM LEVEL 138 MEQ/L (136-145); TOTAL PROTEIN 7.5 GM/DL (6.4-8.2)
[2021-01-17 08:19] VITALS: BP 173/99
[2021-01-17] MEDS ORDERED: METOCLOPRAMIDE INJ 10MG/2ML VIAL (J2765 PER 1) IV ONE (08:30)
== END 2021-01-17 08:46 | disposition home or self-care (01) ==
LOC: M ED 06:36
DX: R11.2 Nausea with vomiting, unspecified (principal); R19.7 Diarrhea, unspecified; R10.9 Unspecified abdominal pain; R50.9 Fever, unspecified; I11.0 Hypertensive heart disease with heart failure; E78.5 Hyperlipidemia, unspecified; G43.909 Migraine, unspecified, not intractable, without status migrainosus; G35 Multiple sclerosis; J44.9 Chronic obstructive pulmonary disease, unspecified; K21.9 Gastro-esophageal reflux disease without esophagitis; F41.9 Anxiety disorder, unspecified; F31.9 Bipolar disorder, unspecified; Z88.2 Allergy status to sulfonamides; Z88.6 Allergy status to analgesic agent; Z88.8 Allergy status to other drugs, medicaments and biological substances; Z79.899 Other long term (current) drug therapy; F17.200 Nicotine dependence, unspecified, uncomplicated
CPT/HCPCS: 80048; 80076; 83605; 83690; 85025; 96361; 96374; 99284; J2765

== ENCOUNTER 2021-02-03 05:16 | Emergency (ER) | payer MEDICAID, OTHER ==
[~2021-02-03] VITALS: Ht 152.4 cm; Wt 86.3 kg
[2021-02-03] MEDS ORDERED: PRED20TA PO (05:25)
[2021-02-03] MEDS ORDERED: ACETAMINOPHEN TAB 650MG DOSE (2X325MG) PO ONE (05:55)
[2021-02-03] MEDS ORDERED: CYCLOBENZAPRINE 10MG TABLET PO ONE (05:55)
[2021-02-03 06:18] LABS: BASO % 0.4 % (0.0-1.0); EOS % 0.4 % (0.0-3.0); HEMATOCRIT 40.3 % (36.0-47.0); HEMOGLOBIN 12.5 g/dl (12.0-15.5); LYMPH # 1.4 10^3/uL (1.5-5.0); LYMPH % 18.3 % (24.0-44.0); MEAN CORPUSCULAR HEMOGLOBIN 30.3 pg (27.0-33.0); MEAN CORPUSCULAR VOLUME 97.6 fl (80.0-96.0); MONO # 0.4 10^3/uL (0.0-0.8); MONO % 5.9 % (2.0-8.0); NEUTROPHILS # 5.5 10^3/uL (1.5-8.5); NEUTROPHILS % 74.1 % (36.0-66.0); PLATELET COUNT, AUTOMATED 261 10^3/uL (150-450); RED BLOOD COUNT 4.13 10^6/uL (4.00-5.40); WHITE BLOOD COUNT 7.4 10^3/uL (4.0-10.0)
[2021-02-03] MEDS ORDERED: CEPH500C PO (06:35)
[2021-02-03] MEDS ORDERED: PHEN1TAB73 PO (06:35)
[2021-02-03 06:39] VITALS: BP 130/63
[2021-02-03 06:39] LABS: BLOOD UREA NITROGEN 14 MG/DL (7-18); CALCIUM LEVEL 8.2 MG/DL (8.5-10.1); CARBON DIOXIDE LEVEL 27 MEQ/L (21-32); CHLORIDE LEVEL 104 MEQ/L (98-107); CREATININE FOR GFR 0.72 MG/DL (0.55-1.30); GLOMERULAR FILTRATION RATE > 60.0 (>51); GLUCOSE, FASTING 239 MG/DL (70-100); POTASSIUM SERUM 4.3 MEQ/L (3.5-5.1); SODIUM LEVEL 137 MEQ/L (136-145)
[2021-02-03] MEDS ORDERED: FLUCONAZOLE 50MG TABLET PO ONE (06:40)
== END 2021-02-03 07:01 | disposition home or self-care (01) ==
LOC: M ED 05:16
DX: R30.0 Dysuria (principal); B37.3 Candidiasis of vulva and vagina; E11.9 Type 2 diabetes mellitus without complications; I10 Essential (primary) hypertension; G35 Multiple sclerosis; Z88.2 Allergy status to sulfonamides; Z88.6 Allergy status to analgesic agent; Z88.8 Allergy status to other drugs, medicaments and biological substances; Z79.899 Other long term (current) drug therapy

== ENCOUNTER → 2021-02-20 | Outpatient (CLI) | payer MEDICAID ==
[~2021-02-20] MED LIST changes: +CEPH500C PO; +PHEN1TAB73 PO
[2021-02-20 09:04] LABS: HEMATOCRIT 40.1 % (36.0-47.0); HEMOGLOBIN 12.6 g/dl (12.0-15.5); MEAN CORPUSCULAR HEMOGLOBIN 30.2 pg (27.0-33.0); MEAN CORPUSCULAR HGB CONC 31.4 g/dl (32.0-36.5); MEAN CORPUSCULAR VOLUME 96.2 fl (80.0-96.0); PLATELET COUNT, AUTOMATED 259 10^3/uL (150-450); RED BLOOD COUNT 4.17 10^6/uL (4.00-5.40); WHITE BLOOD COUNT 6.8 10^3/uL (4.0-10.0)
[2021-02-20 09:16] LABS: HEMOGLOBIN A1c 5.6 %
[2021-02-20 09:22] LABS: ERYTHROCYTE SEDIMENTATION RATE 24 mm/hr (0-30)
[2021-02-20 09:27] LABS: C REACTIVE PROTEIN QUANTITATIV < 0.30 MG/DL (0.00-0.30); CHOLESTEROL LEVEL 244 MG/DL (<200); CHOLESTEROL RISK RATIO 5.304 (<5); GLUCOSE, FASTING 106 MG/DL (70-100); HDL CHOLESTEROL 46 MG/DL (>40); NON-HDL-C 198 MG/DL; TRIGLYCERIDES LEVEL 514 MG/DL (<150)
== END ==
LOC: M LAB 07:38
PROVIDERS: ATTEND Physician Assistant
DX: M31.6 Other giant cell arteritis (principal)

== ENCOUNTER 2021-03-14 12:56 | Emergency (ER) | payer MEDICAID, OTHER ==
[~2021-03-14] VITALS: Ht 152.4 cm; Wt 82.7 kg
[2021-03-14] MEDS ORDERED: NORCO, ANEXSIA 5/325MG TABLET (HYDROcodone/ACETAMINOPHEN) PO ONE (13:25)
[2021-03-14] MEDS ORDERED: methylPREDNISolone 125MG 2ML VIAL IV ONE (13:25)
[2021-03-14] MEDS ORDERED: IPRATROPIUM 0.5MG/ALBUTEROL 2.5MG INH SOL UD 3ML (DUONEB) NEB ONE (13:25)
[2021-03-14 14:00] LABS: HEMATOCRIT 37.9 % (36.0-47.0); HEMOGLOBIN 12.2 g/dl (12.0-15.5); MEAN CORPUSCULAR HEMOGLOBIN 30.3 pg (27.0-33.0); MEAN CORPUSCULAR HGB CONC 32.2 g/dl (32.0-36.5); MEAN CORPUSCULAR VOLUME 94.3 fl (80.0-96.0); PLATELET COUNT, AUTOMATED 248 10^3/uL (150-450); RED BLOOD COUNT 4.02 10^6/uL (4.00-5.40); WHITE BLOOD COUNT 8.4 10^3/uL (4.0-10.0)
--- NOTE | 2021-03-14 14:14 | REP ---
INDICATION: left upper arm/shoulder pain; s/p fall COMPARISON: None. TECHNIQUE: Two views left humerus. FINDINGS: There is no evidence of acute fracture, dislocation, or intrinsic bone disease. IMPRESSION: No fracture or dislocation. <Electronically signed by Mk Ann > 03/14/21 [id number]
--- NOTE | 2021-03-14 14:14 | REP ---
INDICATION: left upper arm/shoulder pain; s/p fall COMPARISON: None. TECHNIQUE: Three views left shoulder. FINDINGS: There is no evidence of acute fracture, dislocation, or intrinsic bone disease. IMPRESSION: No fracture or dislocation. <Electronically signed by Mk Ann > 03/14/21 [id number]
--- NOTE | 2021-03-14 14:30 | REP ---
INDICATION: fall injury; bilateral rib pain. COMPARISON: Chest 07/12/2020 and 11/06/2020. TECHNIQUE: Four views bilateral ribs. Frontal view chest. FINDINGS: No fracture or bone lesion is seen of the bilateral ribs. There is no acute infiltrate in either lung. There is no pneumothorax or evidence of pleural effusion. Heart and mediastinum are within normal limits. IMPRESSION: Negative bilateral rib series. <Electronically signed by Mk Ann > 03/14/21 [id number]
[2021-03-14 14:31] LABS: ALBUMIN 3.4 GM/DL (3.2-5.2); ALT/SGPT 14 U/L (12-78); ATYPICAL LYMPH 7 % (0-5); BASOPHILS 2 % (0-1); BILIRUBIN,DIRECT < 0.1 MG/DL (0.0-0.2); BILIRUBIN,TOTAL 0.2 MG/DL (0.2-1.0); BLOOD UREA NITROGEN 15 MG/DL (7-18); CALCIUM LEVEL 8.4 MG/DL (8.5-10.1); CARBON DIOXIDE LEVEL 27 MEQ/L (21-32); CHLORIDE LEVEL 107 MEQ/L (98-107); CK-MB VALUE MASS < 1.0 NG/ML (<3.6); CPK CREATINE PHOSPHOKINASE 55 U/L (26-192); CREATININE FOR GFR 0.51 MG/DL (0.55-1.30); EOSINOPHILS 10 % (0-3); GLOMERULAR FILTRATION RATE > 60.0 (>51); GLUCOSE, FASTING 122 MG/DL (70-100); LYMPHOCYTES 38 % (16-44); MB/CK RELATIVE INDEX 1.82 (< OR =4); MONOCYTES 5 % (0-5); NEUTROPHILS 37 % (28-66); NT-PRO BNP 231 PG/ML (<125); PLATELET ESTIMATE NORMAL (NORMAL); POTASSIUM SERUM 3.4 MEQ/L (3.5-5.1); SODIUM LEVEL 140 MEQ/L (136-145); TOTAL PROTEIN 6.6 GM/DL (6.4-8.2); TROPONIN I < 0.02 NG/ML (< 0.10)
[2021-03-14 16:00] VITALS: BP 155/75
--- NOTE | 2021-03-15 02:42 | ECGEPIP ---
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
== END 2021-03-14 16:00 | disposition home or self-care (01) ==
LOC: M ED 12:56
DX: J44.9 Chronic obstructive pulmonary disease, unspecified (principal); R53.1 Weakness; S40.012A Contusion of left shoulder, initial encounter; X58.XXXA Exposure to other specified factors, initial encounter; Y92.89 Other specified places as the place of occurrence of the external cause; Y93.89 Activity, other specified; Y99.8 Other external cause status; R94.31 Abnormal electrocardiogram [ECG] [EKG]; I50.9 Heart failure, unspecified; I11.0 Hypertensive heart disease with heart failure; G35 Multiple sclerosis; E78.5 Hyperlipidemia, unspecified; K21.9 Gastro-esophageal reflux disease without esophagitis; F31.9 Bipolar disorder, unspecified; F17.210 Nicotine dependence, cigarettes, uncomplicated; Z79.899 Other long term (current) drug therapy; Z98.890 Other specified postprocedural states
CPT/HCPCS: 71111; 73030; 73060; 80048; 80076; 82550; 82553; 83880; 84443; 85025; 93005; 93041; 94640; 94760; 96374; 99284; J2930

== ENCOUNTER → 2021-03-21 | Outpatient (REF) | payer MEDICAID ==
[2021-03-21 17:47] LABS: ALBUMIN 3.7 GM/DL (3.2-5.2); BLOOD UREA NITROGEN 11 MG/DL (7-18); CALCIUM LEVEL 9.1 MG/DL (8.5-10.1); CARBON DIOXIDE LEVEL 28 MEQ/L (21-32); CHLORIDE LEVEL 103 MEQ/L (98-107); CREATININE FOR GFR 0.58 MG/DL (0.55-1.30); GLOMERULAR FILTRATION RATE > 60.0 (>51); GLUCOSE, FASTING 104 MG/DL (70-100); NT-PRO BNP 113 PG/ML (<125); POTASSIUM SERUM 4.3 MEQ/L (3.5-5.1); SODIUM LEVEL 138 MEQ/L (136-145)
== END ==
LOC: M SFHCPLAZ 14:50
PROVIDERS: ATTEND Physician Assistant
DX: G89.29 Other chronic pain (principal); G35 Multiple sclerosis; E87.6 Hypokalemia

== ENCOUNTER 2021-04-01 15:15 | Emergency (ER) | payer MEDICAID, OTHER ==
[~2021-04-01] VITALS: Ht 152.4 cm; Wt 81.8 kg
[2021-04-01 15:16] VITALS: BP 145/86
== END 2021-04-01 16:02 | disposition left against medical advice (07) ==
LOC: M ED 15:15
DX: Z53.21 Procedure and treatment not carried out due to patient leaving prior to being seen by health care provider (principal)

== ENCOUNTER 2021-05-03 08:58 | Emergency (ER) | payer MEDICAID, MEDICARE, OTHER ==
[~2021-05-03] VITALS: Ht 152.4 cm; Wt 84.1 kg
[~2021-05-03 08:58] MED LIST changes: -DOXY100C37; +DOXY1CAP62
[2021-05-03] MEDS ORDERED: LIPI20TA PO (09:07)
[2021-05-03] MEDS ORDERED: PROMETHAZINE 25 MG TAB PO ONE (10:10)
[2021-05-03] MEDS ORDERED: ACETAMINOPHEN 500 MG TAB PO ONE (10:10)
[2021-05-03 10:50] VITALS: BP 120/75
== END 2021-05-03 11:01 | disposition home or self-care (01) ==
LOC: M ED 08:58
DX: Z20.822 Contact with and (suspected) exposure to COVID-19 (principal); M79.10 Myalgia, unspecified site; R53.83 Other fatigue; I50.9 Heart failure, unspecified; I10 Essential (primary) hypertension; E78.5 Hyperlipidemia, unspecified; J44.9 Chronic obstructive pulmonary disease, unspecified; F17.200 Nicotine dependence, unspecified, uncomplicated; Z79.899 Other long term (current) drug therapy; Z88.6 Allergy status to analgesic agent; Z88.2 Allergy status to sulfonamides; Z88.8 Allergy status to other drugs, medicaments and biological substances
CPT/HCPCS: 99284; U0003

== ENCOUNTER 2021-05-26 03:09 | Emergency (ER) | payer MEDICARE ==
[~2021-05-26] VITALS: Ht 152.4 cm; Wt 85.9 kg
[2021-05-26 03:09] VITALS: BP 157/90
[~2021-05-26 03:09] MED LIST changes: -CLIN150C15 PO; +CLIN150C17 PO; +LIPI20TA PO; -QUET50TA3 PO; +QUET50TA4 PO
== END 2021-05-26 06:39 | disposition left against medical advice (07) ==
LOC: M ED 03:09
DX: Z53.21 Procedure and treatment not carried out due to patient leaving prior to being seen by health care provider (principal)

== ENCOUNTER 2021-07-23 09:09 | Emergency (ER) | payer MEDICAID, MEDICARE ==
[~2021-07-23] VITALS: Ht 162.6 cm; Wt 85.9 kg
[2021-07-23] MEDS ORDERED: methylPREDNISolone 125MG 2ML VIAL IV ONE (10:00)
[2021-07-23 10:20] LABS: BASO # 0.1 10^3/uL (0.0-0.2); BASO % 0.5 % (0.0-1.0); EOS # 0.1 10^3/uL (0.0-0.5); EOS % 1.4 % (0.0-3.0); HEMOGLOBIN 12.5 g/dl (12.0-15.5); LYMPH # 2.6 10^3/uL (1.5-5.0); LYMPH % 25.9 % (24.0-44.0); MEAN CORPUSCULAR HEMOGLOBIN 30.6 pg (27.0-33.0); MEAN CORPUSCULAR HGB CONC 32.1 g/dl (32.0-36.5); MEAN CORPUSCULAR VOLUME 95.6 fl (80.0-96.0); MONO # 1.1 10^3/uL (0.0-0.8); MONO % 11.2 % (2.0-8.0); NEUTROPHILS # 6.1 10^3/uL (1.5-8.5); NEUTROPHILS % 60.3 % (36.0-66.0); PLATELET COUNT, AUTOMATED 243 10^3/uL (150-450); RED BLOOD COUNT 4.08 10^6/uL (4.00-5.40)
[2021-07-23] MEDS: COMBIVENT RESPIMAT 100-20MCG INHALER 4GM INH SCH ×3 (10:25→10:55)
--- NOTE | 2021-07-23 10:27 | REP ---
INDICATION: sob, wheezing. COMPARISON: Multiple TECHNIQUE: Portable FINDINGS: The technique utilized in obtaining the radiograph has magnified the cardiac silhouette and accentuated the interstitial markings. The superior mediastinal structures are midline. The cardiac silhouette is unremarkable in size, shape, and position. The diaphragmatic surfaces of the lungs are regular, and the costophrenic angles are clear. In the left lower lobe there is a discoid shaped opacity. The lung ventura are otherwise clear and unchanged the imaged osseous structures are intact. IMPRESSION: Minimal discoid atelectasis left lower lobe. <Electronically signed by Deniz Leon > 07/23/21 1026
[2021-07-23 10:51] LABS: ALBUMIN 3.4 GM/DL (3.2-5.2); ALT/SGPT 26 U/L (12-78); BILIRUBIN,TOTAL 0.4 MG/DL (0.2-1.0); BLOOD UREA NITROGEN 12 MG/DL (7-18); CALCIUM LEVEL 9.1 MG/DL (8.5-10.1); CARBON DIOXIDE LEVEL 28 MEQ/L (21-32); CHLORIDE LEVEL 106 MEQ/L (98-107); CREATININE FOR GFR 0.55 MG/DL (0.55-1.30); GLOMERULAR FILTRATION RATE > 60.0 (>51); GLUCOSE, FASTING 137 MG/DL (70-100); POTASSIUM SERUM 5.2 MEQ/L (3.5-5.1); SODIUM LEVEL 138 MEQ/L (136-145); TOTAL PROTEIN 7.2 GM/DL (6.4-8.2)
[2021-07-23 11:05] LABS: RSV AMPLIFICATION NEGATIVE (NEGATIVE)
[2021-07-23] MEDS ORDERED: PRED20TA PO (12:05)
[2021-07-23] MEDS ORDERED: AUGM875T28 PO (12:05)
[2021-07-23] MEDS ORDERED: IPRA0.00 NEB (12:05)
[2021-07-23 12:29] VITALS: BP 117/70
== END 2021-07-23 12:35 | disposition home or self-care (01) ==
LOC: M ED 09:09
DX: J20.9 Acute bronchitis, unspecified (principal); G35 Multiple sclerosis; J98.11 Atelectasis; J45.909 Unspecified asthma, uncomplicated; G43.909 Migraine, unspecified, not intractable, without status migrainosus; Z88.2 Allergy status to sulfonamides; Z88.6 Allergy status to analgesic agent; Z79.899 Other long term (current) drug therapy
CPT/HCPCS: 36415; 71045; 80053; 85025; 87631; 94640; 96374; 99284; J2930

== ENCOUNTER 2021-09-08 04:20 | Emergency (ER) | payer MEDICAID ==
[~2021-09-08] VITALS: Ht 152.4 cm; Wt 79.4 kg
[~2021-09-08 04:20] MED LIST changes: +DOXY-443; -DOXY1CAP62
[2021-09-08 04:22] VITALS: BP 161/79
--- OUTSIDE RECORDS SUMMARY | 2021-09-08 04:33 | CCD ---
Author Author [facility] Organization [facility] Address Unknown Phone Unavailable Care Team Providers Care Stitch Rubber Name Role Phone ServageArgenis Unavailable PROBLEMS Type Condition ICD9-CM Code QGS29-BI Code Onset Dates Condition S tatus W/U Status Risk SNOMED Code Notes Problem Multiple sclerosis G35 Active confirmed 2 5291317 Problem PTSD (post-traumatic stress disorder) F43.10 Ac tive confirmed 17491160 Problem Gastroesophageal reflux disease, esophagitis pre sence not specified K21.9 Active confirmed 364179637 Problem Chronic obstructive pulmonary disease, unspecified COPD ty pe J44.9 Active confirmed 57978204 Problem Essential hypertension I10 Active confirmed 84735623 Problem Other chronic pain G89.29 Active confirmed 8 3262573 Problem Bipolar affective disorder, remission status unspecified F31.9 Active confirmed 11547637 Problem Optic neuritis H46.9 Active confirmed 46338 008 Problem Papilledema of both eyes H47.10 Active confirm ed [id number] Problem Trochanteric bursitis, left hip M70.62 Active confirmed 462781328752163 Problem Moderate persistent asthma, uncomplicated J45.40 Active confirmed 078642136 Problem Left ankle joint deformity M21.962 Active confirmed 355672553 Problem Mixed hyperlipidemia E78.2 Active confirmed 662293653 Problem Myalgia M79.1 Active confirmed 51889735 Problem Continuous dependence on cigarette smoking F17.210 Active confirmed 481331060593767 Problem Primary osteoarthritis of left knee M17.12 Acti ve confirmed 472835504228804 Problem Osteoarthritis of multiple joints, unspecified o steoarthritis type M15.9 Active confirmed 576267808 Problem Seasonal allergies J30.2 Active confirmed 4 67511621 ALLERGIES Allergen (clinical drug ingredient) Drug/Non Drug Allergy do cumented on EMR Reaction Allergy Type Onset Date Status cephalexin Keflex([facility] Code:[address]-06) irching Drug Allergy Active Naproxen Naproxen Rash Non Drug Allergy Active Flagyl Angioedema Non Drug Allergy Active gabapentin Gabapentin did not work Drug Allergy Active Sulfa Rash Non Drug Allergy Active ibuprofen Ibuprofen([facility] Code:[address]-85) vomiting Drug Allergy Active ENCOUNTERS from 1967 to 2021-06-26 Encounter Location Date Provider Diagnosis [facility] [phone] [place] [address] 18 Jun, 2021 Argenis Servage Mixed hyperlipidemia E78.2 ; Moderate persistent asthma, uncomplicated J45.40 ; Muscle spasm M62.838 ; Nonspecific chest pain R07.9 ; Bipolar affective disorder, remission status unspecified F31.9 ; PTSD (post- traumatic stress disorder) F43.10 ; Gastroesophageal reflux disease, esophagitis presence not specified K21.9 ; Optic neuritis H46.9 and Continuous dependence on cigarette smoking F17.210 IMMUNIZATIONS Vaccine Route Administration Date Status Influenza 18 yrs & older Flublok IM Intramuscular Oct 07, 2018 Administered Pneumococcal Adult 0.5mL Pneumovax 23 Unknown Jul 21 012 Administered Influenza 6mo & up Fluzone Unknown Sep 03, 2017 Admin istered SOCIAL HISTORY Tobacco Use: Social History Observation Description Date Details (start date - stop date) Current Smoker Sex Assigned At : Social History Observation Description Sex Assigned At Unknown Education: Question Answer Notes Level of Education: Finished High School Audit Question Answer Notes Total Score: 0 Interpretation: Alcohol Education Language: Question Answer Notes Languages spoken: Slovenian Anglican: Question Answer Notes Anglican 35 None Sexual Hx: Question Answer Notes Had sex in the last 12 months (vaginal, oral, or anal)? Yes Have you ever had an STD? No Prevention Strategies discussed: Condoms with Women only Use protection? No Drug and Alcohol Question Answer Notes Total Score: 0 Interpretation: No problems reported Alcohol Screening: Question Answer Notes Did you have a drink containing alcohol in the past year? No Points 0 Interpretation Negative BMI Care Goal Follow-Up Question Answer Notes Above Normal BMI Follow-Up Giving encouragement to exercise Tobacco Use: Question Answer Notes Are you a: current smoker Patient counseled on the dangers of tobacco use and urged to quit: 10/02/2020 How many cigarettes a day do you smoke? 09-22 REASON FOR REFERRAL No Information VITAL SIGNS Weight 188 lbs Jun, Weight-kg 85.28 kg Jun, Height 60 in Jun, BMI 36.71 kg/m2 Jun, Blood pressure systolic 130 mm Hg Jun, Blood pressure diastolic 85 mm Hg Jun, MEDICATIONS Medication SIG (Take, Route, Frequency, Duration) Notes Start Da te End Date Status Mucinex 600 MG 1 tablet as needed Orally 1200mg otc dose, every 12 hrs for 30 day(s) Active Esomeprazole Magnesium 40 MG TAKE ONE CAPSULE BY MOUTH @6AM for 28 Active Singulair 10 MG 1 tablet Orally Once a day for 30 days Active HYDROcodone-Acetaminophen 5-325 MG 1 tablet as needed Orally every 6 hrs; MDD 4 tabs for 5 days March, Active Paxil 30 MG 1 tablet in the morning Orally Once a day for 30 day(s) Active Acetaminophen 500 MG 2 capsules as needed Orally every 6 hrs otc Active SEROquel 100 MG 1 tablet at bedtime Orally Once a day for 30 day(s) Active Lisinopril 10 MG TAKE ONE TABLET BY MOUTH @6AM for 28 Active Symbicort 80-4.5 MCG/ACT 2 puffs Inhalation twice daily for 30 Days Active lamoTRIgine 150 MG TAKE ONE TABLET BY MOUTH TWICE DAILY Oral Lamictal Active Propranolol HCl 10 MG TAKE THREE TABLETS BY MOUTH @6AM and TAKE THREE TABLETS @6PM for 28 Active Fluticasone Propionate 50 MCG/ACT 1 spray in each nost ril Nasally Once a day for 30 day(s) Nov, Active Atorvastatin Calcium 20 MG 1 tablet Orally Once a day for 30 day(s) Active KlonoPIN 0.5 MG 1 tablet Orally twice daily Active Albuterol Sulfate HFA 108 (90 Base) MCG/ACT INHALE TWO PUFFS BY MOUTH EVERY 6 HOURS NEEDED for 28 Active Baclofen 5 MG 1 tab Orally Twice a dayprn muscle spasm for 30 days Jun, Active PROCEDURES No Information RESULTS No Results REASON FOR VISIT 3 month follow up MEDICAL (GENERAL) HISTORY Type Description Date Medical History ?Multiple Sclerosis on Disability due to this Medical History Hypertension Medical History Asthma Dr. Tam Pulmonary Medical History Recurrent pneumonia Medical History Migraines -optical sees whit e spots previously followed with Dr. Rivers Medical History Optic neuritis - Dr. Green Medical History GERD Medical History PTSD- follows with [facility] Medical History Bipolar Disorder- follows with [facility] Medical History Cigarette Smoking Medical History 11/24/18, 10/02/20 refuse colonoscopy Medical History high blood pressure issues Surgical History Left ovary cystectomy 1986 Surgical History Cholecystectomy 2006 Surgical History EGD with 2 biopsies- Jorge Luisraljairo 03/31/2018 Hospitalization History pnemonia x9 Hospitalization History vaginal bleeding 07/08/2018 Hospitalization History Acute toxic metabolic enceph alopathy secondary to alcohol intox, intentional seroquel overdose 02/02/19-02/03/19 Hospitalization History [facility] 02/03/19-02/08/19 Goals Section No Information Health Concerns No Information MEDICAL EQUIPMENT No Information MENTAL STATUS No Information FUNCTIONAL STATUS No Information ASSESSMENTS Encounter Date Diagnosis Assessment Notes Treatment Notes Treatm ent Clinical Notes Jun, Mixed hyperlipidemia (ICD-10 - E78.2) at last visit: lipids reviewed 10 yr ASCVD risk is 8.98 % will start lipitor 20 mg pp q day risk and benifis discussed. June 20, 2021, patient states she is taking her Lipitor, will mail lab slip to her to obtain updated labs patient states she is willing to have them drawn Jun, Moderate persistent asthma, uncomplicated (ICD-1 0 - J45.40) suppose to be following with Pulmonary Services Dr. Tam denies issues today states her inhalers are working has air conditioning in her apartment Jun, Muscle spasm (ICD-10 - M62.838) at last visit: having muscle spasms stales it is from her MS does not follow with anyone. will ordered 1 Flexeril per day to use discussed risk of medication with pt. she does not drive a car. but does use a electric wheelchair. June 20, 2021, patient feels Flexeril is no longer helping, wants a different muscle relaxer. Will order baclofen 5 mg twice daily as needed initially and adjust as necessary once again discussed risk and benefits Jun, Nonspecific chest pain (ICD-10 - R07.9) resolved Jun, Bipolar affective disorder, remission status unspecified (ICD-10 - F31.9) [facility] states meds have been working well trying to wean off klonopin , but states she is still onit Jun, PTSD (post-traumatic stress disorder) (ICD-10 - F43.10) carries this diagnosis Jun, Gastroesophageal reflux dise ase, esophagitis presence not specified (ICD-10 - K21.9) seen by Gastroenterology scoped 03/31/2018 indicated grade A reflux esophagitis. Follow antireflux regime. Patient was placed on Nexium 40 mg daily and simethicone on a when necessary basis. Biopsy indicated minimal nonspecific chronic inflammation no acute inflammation or evidence for H. pylori. Fragments of benign squamous mucosa. Jun, Optic neuritis (ICD-10 - H46.9) States that she was following with Dr. Green who has left the practice now wit Dr. Greene states that she saw him this summer Jun, Continuous dependence on cigarette smoking (ICD- 10 - F17.210) restarted smoking does not feels she can stop at the current time. Jun,September masha alberto suggested PLAN OF TREATMENT Medication Medication Name Sig Start Date Stop Date Lisinopril 10 MG TAKE ONE TABLET BY MOUTH @6AM for 28 Singulair 10 MG 1 tablet Orally Once a day for 30 days Propranolol HCl 10 MG TAKE THREE TABLETS BY MOUTH @6AM and TAKE THREE TABLETS @6PM for 28 Atorvastatin Calcium 20 MG 1 tablet Orally Once a day for 30 day (s) Esomeprazole Magnesium 40 MG TAKE ONE CAPSULE BY MOUTH @6AM for 28 Baclofen 5 MG 1 tab Orally Twice a dayprn muscle spasm for 30 days Jun, Treatment Notes Assessment Notes Clinical Notes Mixed hyperlipidemia at last visit: grzegorz menezes reviewed 10 yr ASCVD risk is 8.98 % will start lipitor 20 mg pp q day risk and benifis discussed.June 20, 2021, patient states she is taking her Lipitor, will mail lab slip to her to obtain updated labs patient states she is willing to have them drawn Moderate persistent asthma, uncomplicated suppose to be following with Pulmonary Services Dr. Yanez issues today states her inhalers are working has air conditioning in her apartment Muscle spasm at last visit:having muscle spasms stales it is from her MS does not follow with anyone. will ordered 1 Flexeril per day to use discussed risk of medication with pt. she does not drive a car. but does use a electric wheelchair.June 20, 2021, patient feels Flexeril is no longer helping, wants a different muscle relaxer. Will order baclofen 5 mg twice daily as needed initially and adjust as necessary once again discussed risk and benefits Nonspecific chest pain resolved Bipolar affective disorder, remission status unspecified Patient follows [facility]. states meds have been working well trying to wean off klonopin , but states she is still onit PTSD (post-traumatic stress disorder) ca rries this diagnosis Gastroesophageal reflux disease, esophagitis presence not sp ecified seen by Gastroenterology scoped 03/31/2018 indicated grade A reflux esophagitis. Follow antireflux regime. Patient was placed on Nexium 40 mg daily and simethicone on a when necessary basis. Biopsy indicated minimal nonspecific chronic inflammation no acute inflammation or evidence for H. pylori. Fragments of benign squamous mucosa. Optic neuritis States that she was following with Dr. Green who has left the practice now wit Dr. Greene states that she saw him this summer Continuous dependence on cigarette smoking restarted smoking does not feels she can stop at the current time. Treatment Notes Test Name Order Date Comprehensive Metabolic Profile (CMP) 2021-06-20 LIPID PANEL (CARDIAC RISK) 2021-06-20 Next Appt Details September annual well exam Reason: Provider Name:Argenis Peralta, 10:30:00 AM, [address], , [place], [address], Insurance Providers Payer Name Payer Address Payer Phone Insured Name Patient Relati onship to Insured Coverage Start Date Coverage End Date [facility] DE[facility] [address] [facility] [phone] ANDRES MELGAR self
--- OUTSIDE RECORDS SUMMARY | 2021-09-08 04:33 | CCD ---
Author Author Yesenia Meeks [facility] Address Unknown Phone Unavailable Care Team Providers Care Tugboat Captain Name Role Phone Zackery Meeks PCP Unavailable Allergies, Adverse Reactions, Alerts Allergy Substance Code C odeSystem Reaction Severity Critic ality Status Start Date nkda Moderate Active Medications Medication Medication Code Medication CodeSystem Start Date Stop Date Route Dose Status Fill Instructions Risperdal 663190 RxNorm 2016-09-16 2017-04-28 oral 2 mg 1 1/2 tablet every night completed Take 1 1/2 tablet by mouth every night Risperdal 287676 RxNorm 2016-06-25 2016-07-09 oral 1 mg 1 tablet every night completed Take 1 tablet by mouth every night for 30 day(s) hydroxyzine HCl 186542 R xNorm 2016-08-12 oral 50 mg 1 tablet every four hours active Take 1 tablet by mouth every four hours as needed Latuda [id number] RxNorm 2017-04-28 2017-05-28 oral 20 mg tablet active for 30 day(s) Paxil 170858 RxNorm 2017-04-28 2017-05-28 oral 20 mg tablet active for 30 day(s) Lamictal RxNorm 2017-04-28 oral 150 mg tablet active Seroquel 170918 RxNorm 2017-04-28 oral 300 mg tablet active Risperdal 408872 RxNorm 2016-07-09 2016-09-08 oral 2 mg 1 tablet every night completed Take 1 tablet by mouth every night for 30 day(s) Lamictal 594726 RxNorm 2016-07-10 2017-04-28 oral 100 mg 1 tablet twice a day completed Take 1 tablet by mouth twice a day Klonopin 051964 RxNorm 2016-07-09 oral 0.5 mg 1 tablet three times a day active Take 1 tablet by mouth three times a day as needed Problems Problem Name Code CodeSy stem Alternate Code Alternate CodeSystem Start Date End Date Status Narrative Bipolar disorder, current episode depressed, moderate [id number] SNOMED-CT 2016-06-20 Active Post-traumatic stress disorder, unspecified 98883523 SNOMED-CT 2016-06-20 Active Post-traumatic stress disorder, unspecified 69224767 SNOMED-CT 2016-06-20 Active Bipolar disorder, current episode depressed, moderate 78586524 SNOMED-CT 2016-06-20 Active Relevant diagnostic tests/laboratory data Narrative No Information Procedures Procedure Name Code Code System Target Site Date of Procedure Status Service Delivery Location Device Cod e Device Name Device UID Psychotherapy, 45 minutes with patient [id number] SNOMED-CT () 2016-07-[address], [id number] Psychotherapy, 45 minutes with patient [id number] SNOMED-CT () 2016-07-[address], [id number] Psychotherapy, 45 minutes with patient [id number] SNOMED-CT () 2016-08-[address], [id number] Psychotherapy, 45 minutes with patient [id number] SNOMED-CT () 2017-04-[address], [id number] Psychotherapy, 45 minutes with patient [id number] SNOMED-CT () 2017-05-[address], [id number] [id number] Psychotherapy, 45 minutes with patient [id number] SNOMED-CT () 2017-11-[address], [id number] Psychotherapy, 45 minutes with patient [id number] SNOMED-CT () 2020-12-[address], [id number] [id number] Psychotherapy, 45 minutes with patient [id number] SNOMED-CT () 2020-12-[address], [id number] Psychotherapy, 45 minutes with patient [id number] SNOMED-CT () 2021-01-[address], [id number] Psychotherapy, 45 minutes with patient [id number] SNOMED-CT () 2021-05-[address], [id number] Psychotherapy, 45 minutes with patient [id number] SNOMED-CT () 2021-06-[address], [id number] [phone] Psychotherapy, 45 minutes with patient [id number] SNOMED-CT () 2018-04-[address], [id number] Psychotherapy, 45 minutes with patient [id number] SNOMED-CT () 2020-08-[address], [id number] Psychotherapy, 45 minutes with patient [id number] SNOMED-CT () 2020-08-[address], [id number] [id number] Psychotherapy, 45 minutes with patient [id number] SNOMED-CT () 2020-10-[address], [id number] Psychotherapy, 45 minutes with patient [id number] SNOMED-CT () 2020-11-[address], [id number] [id number] Psychotherapy, 45 minutes with patient [id number] SNOMED-CT () 2020-12-[address], [id number] Initial Psychiatric Evaluation [id number] SNOMED-CT () 2016-06-[address], [id number] Initial Psychiatric Evaluation [id number] SNOMED-CT () 2017-04-[address], [id number] Health Monitoring / Risk Reduction Counseling - Interm ediate [id number] SNOMED-CT () 2017-04-[address], [id number] Health Monitoring / Risk Reduction Counseling - Interm ediate [id number] SNOMED-CT () 2018-08-[address], [id number] [id number] Health Monitoring / Risk Reduction Counseling - Interm ediate [id number] SNOMED-CT () 2019-04-[address], [id number] Health Monitoring / Risk Reduction Counseling - Expand ed [id number] SNOMED-CT () 2020-12-[address], [id number] [phone] Est. Patient - E&M Intermediate [id number] SNOMED-CT () 2017-06-[address], [id number] Est. Patient - E&M Intermediate [id number] SNOMED-CT () 2017-10-[address], [id number] [phone] Est. Patient - E&M Intermediate [id number] SNOMED-CT () 2018-06-[address], [id number] [id number] Est. Patient - E&M Intermediate [id number] SNOMED-CT () 2018-09-[address], [id number] Est. Patient - E&M Intermediate [id number] SNOMED-CT () 2019-01-[address], [id number] [id number] Est. Patient - E&M Intermediate [id number] SNOMED-CT () 2019-05-[address], [id number] [phone] Est. Patient - E&M Intermediate [id number] SNOMED-CT () 2019-07-[address], [id number] [id number] Est. Patient - E&M Intermediate [id number] SNOMED-CT () 2019-08-[address], [id number] [id number] Est. Patient - E&M Intermediate [id number] SNOMED-CT () 2020-01-[address], [id number] [id number] Est. Patient - E&M Intermediate [id number] SNOMED-CT () 2021-02-[address], [id number] [phone] Est. Patient - E&M Brief [id number] SNOMED-CT () 2016-07-[address], [id number] [phone] Est. Patient - E&M Brief [id number] SNOMED-CT () 2016-09-[address], [id number] [id number] Est. Patient - E&M Brief [id number] SNOMED-CT () 2016-10-[address], [id number] [phone] Est. Patient - E&M Brief [id number] SNOMED-CT () 2017-11-[address], [id number] [phone] Est. Patient - E&M Brief [id number] SNOMED-CT () 2018-07-[address], [id number] Est. Patient - E&M Brief [id number] SNOMED-CT () 2019-04-[address], [id number] [id number] Est. Patient - E&M Brief [id number] SNOMED-CT () 2020-03-[address], [id number] [id number] Est. Patient - E&M Brief [id number] SNOMED-CT () 2020-07-[address], [id number] Est. Patient - E&M Brief [id number] SNOMED-CT () 2020-10-[address], [id number] [id number] Est. Patient - E&M Expanded [id number] SNOMED-CT () 2016-08-[address], [id number] [id number] Est. Patient - E&M Expanded [id number] SNOMED-CT () 2017-07-[address], [id number] [phone] Est. Patient - E&M Expanded [id number] SNOMED-CT () 2017-08-[address], [id number] [phone] Est. Patient - E&M Expanded [id number] SNOMED-CT () 2017-12-[address], [id number] [id number] Est. Patient - E&M Expanded [id number] SNOMED-CT () 2018-01-[address], [id number] [id number] Est. Patient - E&M Expanded [id number] SNOMED-CT () 2018-02-[address], [phone] Est. Patient - E&M Expanded [id number] SNOMED-CT () 2018-03-[address], [id number] [phone] Est. Patient - E&M Expanded [id number] SNOMED-CT () 2018-04-[address], [id number] [phone] Est. Patient - E&M Expanded [id number] SNOMED-CT () 2018-05-[address], [id number] [id number] Est. Patient - E&M Expanded [id number] SNOMED-CT () 2019-02-[address], [id number] [phone] Est. Patient - E&M Expanded [id number] SNOMED-CT () 2021-05-[address], [id number] [phone] Individual Psychotherapy [id number] SNOMED-CT () 2017-09-[address], [id number] [id number] Individual Psychotherapy [id number] SNOMED-CT () 2020-09-[address], [id number] [phone] Individual Psychotherapy [id number] SNOMED-CT () 2020-11-[address], [id number] [id number] Individual Psychotherapy [id number] SNOMED-CT () 2020-11-[address], [id number] [phone] Individual Psychotherapy [id number] SNOMED-CT () 2021-01-[address], [id number] [id number] Individual Psychotherapy [id number] SNOMED-CT () 2016-07-[address], 723806679 [phone] Individual Psychotherapy [id number] SNOMED-CT () 2016-07-[address], 962778551 [id number] Individual Psychotherapy [id number] SNOMED-CT () 2016-08-[address], [id number] [id number] Individual Psychotherapy [id number] SNOMED-CT () 2017-04-[address], 993457745 [id number] Individual Psychotherapy [id number] SNOMED-CT () 2017-05-[address], [id number] [phone] Individual Psychotherapy [id number] SNOMED-CT () 2017-11-[address], [id number] [id number] Individual Psychotherapy [id number] SNOMED-CT () 2020-12-[address], [id number] [phone] Individual Psychotherapy [id number] SNOMED-CT () 2020-12-[address], [id number] [phone] Individual Psychotherapy [id number] SNOMED-CT () 2021-01-[address], [id number] [phone] Individual Psychotherapy [id number] SNOMED-CT () 2021-05-[address], [id number] [phone] Individual Psychotherapy [id number] SNOMED-CT () 2021-06-[address], [id number] [phone] Individual Psychotherapy [id number] SNOMED-CT () 2018-04-[address], [id number] Individual Psychotherapy [id number] SNOMED-CT () 2020-08-[address], [id number] [phone] Individual Psychotherapy [id number] SNOMED-CT () 2020-08-[address], [id number] [phone] Individual Psychotherapy [id number] SNOMED-CT () 2020-10-[address], [id number] [phone] Individual Psychotherapy [id number] SNOMED-CT () 2020-11-[address], [id number] [id number] Individual Psychotherapy [id number] SNOMED-CT () 2020-12-[address], [id number] [phone] Psychiatric Diagnostic Evaluation without medical serv ices [id number] SNOMED-CT () 2016-06-[address], [id number] [phone] Psychiatric Diagnostic Evaluation without medical serv ices [id number] SNOMED-CT () 2017-02-24 completed [place] [id number] [place], [place], [id number] [id number] SNOMED-CT () 2021-05-[address], 553351640 [id number] SNOMED-CT () 2021-01-[address], [id number] SNOMED-CT () 2020-12-[address], 560762204 [id number] SNOMED-CT () 2020-12-[address], [id number] SNOMED-CT () 2021-02-[address], [id number] [id number] SNOMED-CT () 2020-11-[address], 696086152 [id number] SNOMED-CT () 2021-01-[address], [id number] SNOMED-CT () 2020-11-[address], [id number] SNOMED-CT () 2020-12-[address], [id number] SNOMED-CT () 2020-11-[address], [id number] SNOMED-CT () 2020-12-[address], [id number] SNOMED-CT () 2020-11-[address], [id number] SNOMED-CT () 2020-07-[address], [id number] SNOMED-CT () 2020-11-[address], [id number] [id number] SNOMED-CT () 2020-11-[address], 668146724 [id number] SNOMED-CT () 2020-11-[address], 501751665 [id number] SNOMED-CT () 2021-05-[address], [id number] [phone] Encounters/Encounter Diagnoses Encounter Name Encounter Code Diagnosis Code Diagnosis Name Diagnosis CodeSystem Date of Diagnosis Service Delivery L ocation non-billable 47704 88122 003 Post-traumatic stress disorder, unspecified SNOMED-CT 2021-06-13 [facility] , , , Vital Signs Code CodeSystem Vitals Date Value 8867-4 [facility] Heart Rate 2019-08-13 86 /min 18793-9 LOINC Weight 2019-08-13 197 [lb_av] 8302-2 LO[facility] Height 2019-08-13 65 [in_i] 8462-4 [facility] Blood Press ure-Diastolic 2019-08-13 125 mm[HG] 47553-1 LOINC BMI 2019-08-13 32.78 (lb/in2) 8480-6 [facility] Blood Press ure-Systolic 2019-08-13 82 mm[HG] Social History Element Description Description Start Date End Date Code CodeSystem AdditionalInfo SexAssignedAtBirth Female 1965 F AdministrativeGender Hospital Discharge Instructions * Reason For Referral Medical Equipment * FDA Assessments * Goals Section Goals Planned DateTime Yesenia will achieve mood stability, decr ease anxiety, and increase ability to control impulsive thoughts and behaviors. 2017-04-02
--- OUTSIDE RECORDS SUMMARY | 2021-09-08 04:33 | CCD ---
Author Author Yesenia Meeks Organization [facility] Address Unknown Phone Unavailable Care Team Providers Care Cloth Calender Name Role Phone Zackery Meeks PCP Unavailable Allergies, Adverse Reactions, Alerts Allergy Substance Code C odeSystem Reaction Severity Critic ality Status Start Date nkda Moderate Active Medications Medication Medication Code Medication CodeSystem Start Date Stop Date Route Dose Status Fill Instructions Seroquel 389214 RxNorm 2017-04-28 oral 300 mg tablet active Paxil 668530 RxNorm 2017-04-28 2017-05-28 oral 20 mg tablet active for 30 day(s) Latuda 5819299 RxNorm 2017-04-28 2017-05-28 oral 20 mg tablet active for 30 day(s) Lamictal RxNorm 2017-04-28 oral 150 mg tablet active Risperdal 421618 RxNorm 2016-09-16 2017-04-28 oral 2 mg 1 1/2 tablet every night completed Take 1 1/2 tablet by mouth every night hydroxyzine HCl 612597 R xNorm 2016-08-12 oral 50 mg 1 tablet every four hours active Take 1 tablet by mouth every four hours as needed Klonopin 767986 RxNorm 2016-07-09 oral 0.5 mg 1 tablet three times a day active Take 1 tablet by mouth three times a day as needed Lamictal 146922 RxNorm 2016-07-10 2017-04-28 oral 100 mg 1 tablet twice a day completed Take 1 tablet by mouth twice a day Risperdal 424313 RxNorm 2016-06-25 2016-07-09 oral 1 mg 1 tablet every night completed Take 1 tablet by mouth every night for 30 day(s) Risperdal 313975 RxNorm 2016-07-09 2016-09-08 oral 2 mg 1 tablet every night completed Take 1 tablet by mouth every night for 30 day(s) Problems Problem Name Code CodeSy stem Alternate Code Alternate CodeSystem Start Date End Date Status Narrative Post-traumatic stress disorder, unspecified [id number] SNOMED-CT 2016-06-20 Active Post-traumatic stress disorder, unspecified 98999251 SNOMED-CT 2016-06-20 Active Bipolar disorder, current episode depressed, moderate 01156764 SNOMED-CT 2016-06-20 Active Bipolar disorder, current episode depressed, moderate 63699506 SNOMED-CT 2016-06-20 Active Relevant diagnostic tests/laboratory data Narrative No Information Procedures Procedure Name Code Code System Target Site Date of Procedure Status Service Delivery Location Device Cod e Device Name Device UID Psychotherapy, 45 minutes with patient [id number] SNOMED-CT () 2016-07-[address], [id number] Psychotherapy, 45 minutes with patient [id number] SNOMED-CT () 2016-07-[address], [id number] Psychotherapy, 45 minutes with patient [id number] SNOMED-CT () 2016-08-[address], [id number] Psychotherapy, 45 minutes with patient [id number] SNOMED-CT () 2017-04-[address], [id number] Psychotherapy, 45 minutes with patient [id number] SNOMED-CT () 2017-05-[address], [id number] Psychotherapy, 45 minutes with patient [id number] SNOMED-CT () 2017-11-[address], [id number] Psychotherapy, 45 minutes with patient [id number] SNOMED-CT () 2020-12-[address], [id number] Psychotherapy, 45 minutes with patient [id number] SNOMED-CT () 2020-12-[address], [id number] Psychotherapy, 45 minutes with patient [id number] SNOMED-CT () 2021-01-[address], [id number] Psychotherapy, 45 minutes with patient [id number] SNOMED-CT () 2021-05-[address], [id number] Psychotherapy, 45 minutes with patient [id number] SNOMED-CT () 2021-06-[address], [id number] Psychotherapy, 45 minutes with patient [id number] SNOMED-CT () 2021-06-[address], [id number] Psychotherapy, 45 minutes with patient [id number] SNOMED-CT () 2018-04-[address], [id number] [phone] Psychotherapy, 45 minutes with patient [id number] SNOMED-CT () 2020-08-[address], [id number] Psychotherapy, 45 minutes with patient [id number] SNOMED-CT () 2020-08-[address], [id number] Psychotherapy, 45 minutes with patient [id number] SNOMED-CT () 2020-10-[address], [id number] Psychotherapy, 45 minutes with patient [id number] SNOMED-CT () 2020-11-[address], [id number] Psychotherapy, 45 minutes with patient [id number] SNOMED-CT () 2020-12-[address], [id number] Initial Psychiatric Evaluation [id number] SNOMED-CT () 2016-06-[address], [id number] Initial Psychiatric Evaluation [id number] SNOMED-CT () 2017-04-[address], [id number] Health Monitoring / Risk Reduction Counseling - Interm ediate [id number] SNOMED-CT () 2017-04-[address], [id number] [id number] Health Monitoring / Risk Reduction Counseling - Interm ediate [id number] SNOMED-CT () 2018-08-[address], [id number] [id number] Health Monitoring / Risk Reduction Counseling - Interm ediate [id number] SNOMED-CT () 2019-04-[address], [id number] Health Monitoring / Risk Reduction Counseling - Expand ed [id number] SNOMED-CT () 2020-12-[address], [id number] [id number] Est. Patient - E&M Intermediate [id number] SNOMED-CT () 2017-06-[address], [id number] [id number] Est. Patient - E&M Intermediate [id number] SNOMED-CT () 2017-10-[address], [id number] [id number] Est. Patient - E&M Intermediate [id number] SNOMED-CT () 2018-06-[address], [id number] [id number] Est. Patient - E&M Intermediate [id number] SNOMED-CT () 2018-09-[address], [id number] Est. Patient - E&M Intermediate [id number] SNOMED-CT () 2019-01-[address], [id number] [phone] Est. Patient - E&M Intermediate [id number] SNOMED-CT () 2019-05-[address], [id number] [id number] Est. Patient - E&M Intermediate [id number] SNOMED-CT () 2019-07-[address], [id number] Est. Patient - E&M Intermediate [id number] SNOMED-CT () 2019-08-[address], [id number] Est. Patient - E&M Intermediate [id number] SNOMED-CT () 2020-01-[address], [id number] [id number] Est. Patient - E&M Intermediate [id number] SNOMED-CT () 2021-02-[address], [id number] Est. Patient - E&M Intermediate [id number] SNOMED-CT () 2021-06-[address], [id number] Est. Patient - E&M Brief [id number] SNOMED-CT () 2016-07-[address], [id number] Est. Patient - E&M Brief [id number] SNOMED-CT () 2016-09-[address], [id number] Est. Patient - E&M Brief [id number] SNOMED-CT () 2016-10-[address], [id number] Est. Patient - E&M Brief [id number] SNOMED-CT () 2017-11-[address], [id number] [id number] Est. Patient - E&M Brief [id number] SNOMED-CT () 2018-07-[address], [id number] Est. Patient - E&M Brief [id number] SNOMED-CT () 2019-04-[address], [id number] [id number] Est. Patient - E&M Brief [id number] SNOMED-CT () 2020-03-[address], [id number] [id number] Est. Patient - E&M Brief [id number] SNOMED-CT () 2020-07-[address], [id number] Est. Patient - E&M Brief [id number] SNOMED-CT () 2020-10-[address], [id number] Est. Patient - E&M Expanded [id number] SNOMED-CT () 2016-08-[address], [id number] Est. Patient - E&M Expanded [id number] SNOMED-CT () 2017-07-[address], [id number] [id number] Est. Patient - E&M Expanded [id number] SNOMED-CT () 2017-08-[address], [id number] Est. Patient - E&M Expanded [id number] SNOMED-CT () 2017-12-[address], [id number] [phone] Est. Patient - E&M Expanded [id number] SNOMED-CT () 2018-01-[address], [id number] Est. Patient - E&M Expanded [id number] SNOMED-CT () 2018-02-[address], [id number] [id number] Est. Patient - E&M Expanded [id number] SNOMED-CT () 2018-03-[address], [id number] [phone] Est. Patient - E&M Expanded [id number] SNOMED-CT () 2018-04-[address], [id number] Est. Patient - E&M Expanded [id number] SNOMED-CT () 2018-05-[address], [id number] Est. Patient - E&M Expanded [id number] SNOMED-CT () 2019-02-[address], [id number] Est. Patient - E&M Expanded [id number] SNOMED-CT () 2021-05-[address], [id number] [phone] Individual Psychotherapy [id number] SNOMED-CT () 2017-09-[address], [id number] [id number] Individual Psychotherapy [id number] SNOMED-CT () 2020-09-[address], [id number] Individual Psychotherapy [id number] SNOMED-CT () 2020-11-[address], 100402134 [id number] Individual Psychotherapy [id number] SNOMED-CT () 2020-11-[address], 535172630 [id number] Individual Psychotherapy [id number] SNOMED-CT () 2021-01-[address], [id number] Individual Psychotherapy [id number] SNOMED-CT () 2016-07-[address], [id number] [id number] Individual Psychotherapy [id number] SNOMED-CT () 2016-07-[address], [phone] Individual Psychotherapy [id number] SNOMED-CT () 2016-08-[address], [id number] [id number] Individual Psychotherapy [id number] SNOMED-CT () 2017-04-[address], 373218611 [phone] Individual Psychotherapy [id number] SNOMED-CT () 2017-05-[address], [id number] [phone] Individual Psychotherapy [id number] SNOMED-CT () 2017-11-[address], 857459404 [id number] Individual Psychotherapy [id number] SNOMED-CT () 2020-12-[address], [id number] [id number] Individual Psychotherapy [id number] SNOMED-CT () 2020-12-[address], [id number] [id number] Individual Psychotherapy [id number] SNOMED-CT () 2021-01-[address], [id number] [id number] Individual Psychotherapy [id number] SNOMED-CT () 2021-05-[address], [id number] [id number] Individual Psychotherapy [id number] SNOMED-CT () 2021-06-[address], [id number] [id number] Individual Psychotherapy [id number] SNOMED-CT () 2021-06-[address], 574309460 [id number] Individual Psychotherapy [id number] SNOMED-CT () 2018-04-[address], [id number] [id number] Individual Psychotherapy [id number] SNOMED-CT () 2020-08-[address], 538231647 [id number] Individual Psychotherapy [id number] SNOMED-CT () 2020-08-[address], [id number] [phone] Individual Psychotherapy [id number] SNOMED-CT () 2020-10-[address], [id number] [phone] Individual Psychotherapy [id number] SNOMED-CT () 2020-11-[address], 307428060 [phone] Individual Psychotherapy [id number] SNOMED-CT () 2020-12-[address], [id number] [phone] Psychiatric Diagnostic Evaluation without medical serv ices [id number] SNOMED-CT () 2016-06-[address], [id number] [id number] Psychiatric Diagnostic Evaluation without medical serv ices [id number] SNOMED-CT () 2017-02-[address], [id number] SNOMED-CT () 2021-05-[address], [id number] [id number] SNOMED-CT () 2021-01-[address], [id number] [id number] SNOMED-CT () 2020-12-13 completed [facility] [address], [id number] SNOMED-CT () 2020-12-06 completed [facility] [address], [id number] SNOMED-CT () 2021-02-14 completed [facility] [address], [id number] [id number] SNOMED-CT () 2020-11-[address], [id number] SNOMED-CT () 2021-01-[address], [id number] [id number] SNOMED-CT () 2020-11-[address], [id number] [id number] SNOMED-CT () 2020-12-[address], [id number] [id number] SNOMED-CT () 2020-11-[address], 544151229 [id number] SNOMED-CT () 2020-12-[address], [id number] SNOMED-CT () 2020-11-[address], 902404473 [id number] SNOMED-CT () 2020-07-[address], [id number] [id number] SNOMED-CT () 2020-11-[address], [id number] [id number] SNOMED-CT () 2020-11-[address], [id number] [id number] SNOMED-CT () 2020-11-[address], 674092470 [id number] SNOMED-CT () 2021-05-[address], [id number] SNOMED-CT () [address], [id number] [phone] Encounters/Encounter Diagnoses Encounter Name Encounter Code Diagnosis Code Diagnosis Name Diagnosis CodeSystem Date of Diagnosis Service Delivery L ocation Crisis Intervention 15 Minute Minimum H201 1 [id number] Post-traumatic stress disorder, unspecif ied SNOMED-CT [address], [id number] Vital Signs Code CodeSystem Vitals Date Value 8867-4 [facility] Heart Rate 2019-08-13 86 /min 8462-4 [facility] Blood Press ure-Diastolic 2019-08-13 125 mm[HG] 8480-6 [facility] Blood Press ure-Systolic 2019-08-13 82 mm[HG] 8302-2 [facility] Height 2019-08-13 65 [in_i] 60484-7 [facility] Weight 2019-08-13 197 [lb_av] 39000-5 [facility] BMI 2019-08-13 32.78 (lb/in2) Social History Element Description Description Start Date End Date Code CodeSystem AdditionalInfo SexAssignedAtBirth Female 1965 F AdministrativeGender Hospital Discharge Instructions * Reason For Referral Medical Equipment * FDA Assessments * Goals Section Goals Planned DateTime Yesenia will achieve mood stability, decr ease anxiety, and increase ability to control impulsive thoughts and behaviors. 2017-04-02
--- OUTSIDE RECORDS SUMMARY | 2021-09-08 04:33 | CCD ---
Author Author Yesenia Meeks Organization [facility] Address Unknown Phone Unavailable Care Team Providers Care C Software Engineer Name Role Phone Zackery Meeks PCP Unavailable Allergies, Adverse Reactions, Alerts Allergy Substance Code C odeSystem Reaction Severity Critic ality Status Start Date nkda Moderate Active Medications Medication Medication Code Medication CodeSystem Start Date Stop Date Route Dose Status Fill Instructions Paxil 949120 RxNorm 2017-04-28 2017-05-28 oral 20 mg tablet active for 30 day(s) Lamictal 278742 RxNorm 2016-07-10 2017-04-28 oral 100 mg 1 tablet twice a day completed Take 1 tablet by mouth twice a day hydroxyzine HCl 032621 R xNorm 2016-08-12 oral 50 mg 1 tablet every four hours active Take 1 tablet by mouth every four hours as needed Risperdal 996628 RxNorm 2016-06-25 2016-07-09 oral 1 mg 1 tablet every night completed Take 1 tablet by mouth every night for 30 day(s) Risperdal 968189 RxNorm 2016-07-09 2016-09-08 oral 2 mg 1 tablet every night completed Take 1 tablet by mouth every night for 30 day(s) Lamictal RxNorm 2017-04-28 oral 150 mg tablet active Risperdal 789391 RxNorm 2016-09-16 2017-04-28 oral 2 mg 1 1/2 tablet every night completed Take 1 1/2 tablet by mouth every night Seroquel 025429 RxNorm 2017-04-28 oral 300 mg tablet active Klonopin 253366 RxNorm 2016-07-09 oral 0.5 mg 1 tablet three times a day active Take 1 tablet by mouth three times a day as needed Latuda 7320317 RxNorm 2017-04-28 2017-05-28 oral 20 mg tablet active for 30 day(s) Problems Problem Name Code CodeSy stem Alternate Code Alternate CodeSystem Start Date End Date Status Narrative Post-traumatic stress disorder, unspecified 91516997 SNOMED-CT 2016-06-20 Active Bipolar disorder, current episode depressed, moderate 59969351 SNOMED-CT 2016-06-20 Active Post-traumatic stress disorder, unspecified 65053121 SNOMED-CT 2016-06-20 Active Bipolar disorder, current episode depressed, moderate 04548245 SNOMED-CT 2016-06-20 Active Relevant diagnostic tests/laboratory data Narrative No Information Procedures Procedure Name Code Code System Target Site Date of Procedure Status Service Delivery Location Device Cod e Device Name Device UID Psychotherapy, 45 minutes with patient [id number] SNOMED-CT () 2016-07-[address], [id number] Psychotherapy, 45 minutes with patient [id number] SNOMED-CT () 2016-07-[address], [id number] Psychotherapy, 45 minutes with patient [id number] SNOMED-CT () 2016-08-[address], [id number] [id number] Psychotherapy, 45 minutes with patient [id number] SNOMED-CT () 2017-04-[address], [id number] [id number] Psychotherapy, 45 minutes with patient [id number] SNOMED-CT () 2017-05-[address], [id number] [id number] Psychotherapy, 45 minutes with patient [id number] SNOMED-CT () 2017-11-[address], 242026050 [id number] Psychotherapy, 45 minutes with patient [id number] SNOMED-CT () 2020-12-[address], [id number] [id number] Psychotherapy, 45 minutes with patient [id number] SNOMED-CT () 2020-12-[address], [id number] [id number] Psychotherapy, 45 minutes with patient [id number] SNOMED-CT () 2021-01-[address], 718753469 [id number] Psychotherapy, 45 minutes with patient [id number] SNOMED-CT () 2021-05-[address], [id number] Psychotherapy, 45 minutes with patient [id number] SNOMED-CT () 2021-06-[address], 028296030 [id number] Psychotherapy, 45 minutes with patient [id number] SNOMED-CT () 2021-06-[address], [id number] [id number] Psychotherapy, 45 minutes with patient [id number] SNOMED-CT () 2018-04-[address], [id number] Psychotherapy, 45 minutes with patient [id number] SNOMED-CT () 2020-08-[address], [id number] Psychotherapy, 45 minutes with patient [id number] SNOMED-CT () 2020-08-[address], 893279407 [id number] Psychotherapy, 45 minutes with patient [id number] SNOMED-CT () 2020-10-[address], [id number] [id number] Psychotherapy, 45 minutes with patient [id number] SNOMED-CT () 2020-11-[address], [id number] Psychotherapy, 45 minutes with patient [id number] SNOMED-CT () 2020-12-[address], [id number] Initial Psychiatric Evaluation [id number] SNOMED-CT () 2016-06-[address], 176905821 [id number] Initial Psychiatric Evaluation [id number] SNOMED-CT () 2017-04-[address], [id number] Health Monitoring / Risk Reduction Counseling - Interm ediate [id number] SNOMED-CT () 2017-04-[address], 038478299 [id number] Health Monitoring / Risk Reduction Counseling - Interm ediate [id number] SNOMED-CT () 2018-08-[address], 766353222 [id number] Health Monitoring / Risk Reduction Counseling - Interm ediate [id number] SNOMED-CT () 2019-04-[address], [id number] [id number] Health Monitoring / Risk Reduction Counseling - Expand ed [id number] SNOMED-CT () 2020-12-[address], 594149760 [id number] Est. Patient - E&M Intermediate [id number] SNOMED-CT () 2017-06-[address], [id number] [id number] Est. Patient - E&M Intermediate [id number] SNOMED-CT () 2017-10-[address], [id number] [id number] Est. Patient - E&M Intermediate [id number] SNOMED-CT () 2018-06-[address], [id number] [id number] Est. Patient - E&M Intermediate [id number] SNOMED-CT () 2018-09-[address], 625578596 [id number] Est. Patient - E&M Intermediate [id number] SNOMED-CT () 2019-01-[address], [id number] [id number] Est. Patient - E&M Intermediate [id number] SNOMED-CT () 2019-05-[address], [id number] Est. Patient - E&M Intermediate [id number] SNOMED-CT () 2019-07-[address], [id number] [id number] Est. Patient - E&M Intermediate [id number] SNOMED-CT () 2019-08-[address], [id number] [id number] Est. Patient - E&M Intermediate [id number] SNOMED-CT () 2020-01-[address], [id number] [id number] Est. Patient - E&M Intermediate [id number] SNOMED-CT () 2021-02-[address], [id number] [id number] Est. Patient - E&M Intermediate [id number] SNOMED-CT () 2021-06-[address], [id number] [id number] Est. Patient - E&M Brief [id number] SNOMED-CT () 2016-07-[address], [id number] [id number] Est. Patient - E&M Brief [id number] SNOMED-CT () 2016-09-[address], [id number] Est. Patient - E&M Brief [id number] SNOMED-CT () 2016-10-[address], [id number] [id number] Est. Patient - E&M Brief [id number] SNOMED-CT () 2017-11-[address], [id number] Est. Patient - E&M Brief [id number] SNOMED-CT () 2018-07-[address], [id number] [phone] Est. Patient - E&M Brief [id number] SNOMED-CT () 2019-04-[address], [id number] [id number] Est. Patient - E&M Brief [id number] SNOMED-CT () 2020-03-[address], [id number] [phone] Est. Patient - E&M Brief [id number] SNOMED-CT () 2020-07-[address], [id number] Est. Patient - E&M Brief [id number] SNOMED-CT () 2020-10-[address], [id number] [id number] Est. Patient - E&M Expanded [id number] SNOMED-CT () 2016-08-[address], [id number] [phone] Est. Patient - E&M Expanded [id number] SNOMED-CT () 2017-07-[address], [id number] [id number] Est. Patient - E&M Expanded [id number] SNOMED-CT () 2017-08-[address], [id number] Est. Patient - E&M Expanded [id number] SNOMED-CT () 2017-12-[address], 522348754 [id number] Est. Patient - E&M Expanded [id number] SNOMED-CT () 2018-01-[address], 987428189 [id number] Est. Patient - E&M Expanded [id number] SNOMED-CT () 2018-02-[address], 539002896 [id number] Est. Patient - E&M Expanded [id number] SNOMED-CT () 2018-03-[address], [id number] [id number] Est. Patient - E&M Expanded [id number] SNOMED-CT () 2018-04-[address], [id number] [phone] Est. Patient - E&M Expanded [id number] SNOMED-CT () 2018-05-[address], [id number] Est. Patient - E&M Expanded [id number] SNOMED-CT () 2019-02-[address], [id number] [id number] Est. Patient - E&M Expanded [id number] SNOMED-CT () 2021-05-[address], 851486511 [id number] Individual Psychotherapy [id number] SNOMED-CT () 2017-09-[address], 862481692 [id number] Individual Psychotherapy [id number] SNOMED-CT () 2020-09-[address], 458949923 [phone] Individual Psychotherapy [id number] SNOMED-CT () 2020-11-[address], 629995853 [id number] Individual Psychotherapy [id number] SNOMED-CT () 2020-11-[address], 636706581 [id number] Individual Psychotherapy [id number] SNOMED-CT () 2021-01-[address], 284394671 [id number] Individual Psychotherapy [id number] SNOMED-CT () 2021-07-[address], 759157393 [phone] Individual Psychotherapy [id number] SNOMED-CT () 2016-07-[address], 370933943 [id number] Individual Psychotherapy [id number] SNOMED-CT () 2016-07-[address], 381075150 [id number] Individual Psychotherapy [id number] SNOMED-CT () 2016-08-[address], 280332749 [id number] Individual Psychotherapy [id number] SNOMED-CT () 2017-04-[address], 140411743 [id number] Individual Psychotherapy [id number] SNOMED-CT () 2017-05-[address], 140783690 [id number] Individual Psychotherapy [id number] SNOMED-CT () 2017-11-[address], 468760933 [phone] Individual Psychotherapy [id number] SNOMED-CT () 2020-12-[address], 955813785 [id number] Individual Psychotherapy [id number] SNOMED-CT () 2020-12-[address], 928142239 [phone] Individual Psychotherapy [id number] SNOMED-CT () 2021-01-[address], 060972583 [phone] Individual Psychotherapy [id number] SNOMED-CT () 2021-05-[address], [id number] [phone] Individual Psychotherapy [id number] SNOMED-CT () 2021-06-[address], 573853055 [phone] Individual Psychotherapy [id number] SNOMED-CT () 2021-06-[address], 286784130 [id number] Individual Psychotherapy [id number] SNOMED-CT () 2018-04-[address], 946323970 [phone] Individual Psychotherapy [id number] SNOMED-CT () 2020-08-[address], 837151340 [id number] Individual Psychotherapy [id number] SNOMED-CT () 2020-08-[address], 750458653 [phone] Individual Psychotherapy [id number] SNOMED-CT () 2020-10-[address], 082932803 [phone] Individual Psychotherapy [id number] SNOMED-CT () 2020-11-[address], 316508414 [id number] Individual Psychotherapy [id number] SNOMED-CT () 2020-12-[address], 672289169 [id number] Psychiatric Diagnostic Evaluation without medical serv ices [id number] SNOMED-CT () 2016-06-[address], 157884602 [phone] Psychiatric Diagnostic Evaluation without medical serv ices [id number] SNOMED-CT () 2017-02-[address], 355388574 [id number] SNOMED-CT () 2021-05-[address], 271707490 [id number] SNOMED-CT () 2021-01-[address], 857724175 [id number] SNOMED-CT () 2020-12-[address], 406406821 [id number] SNOMED-CT () 2020-12-[address], 574821222 [id number] SNOMED-CT () 2021-02-[address], 960813315 [id number] SNOMED-CT () 2020-11-[address], 339491286 [id number] SNOMED-CT () 2021-01-[address], 907810599 [id number] SNOMED-CT () 2020-11-[address], 992633832 [id number] SNOMED-CT () 2020-12-[address], 391496090 [id number] SNOMED-CT () 2020-11-[address], 514744821 [id number] SNOMED-CT () 2020-12-[address], 412976034 [id number] SNOMED-CT () 2020-11-[address], 859214705 [id number] SNOMED-CT () 2020-07-[address], 746112057 [id number] SNOMED-CT () 2020-11-[address], [id number] SNOMED-CT () 2020-11-[address], 830581302 [id number] SNOMED-CT () 2020-11-[address], 634246190 [id number] SNOMED-CT () 2021-05-[address], 137883798 [id number] SNOMED-CT () [address], [id number] Encounters/Encounter Diagnoses Encounter Name Encounter Code Diagnosis Code Diagnosis Name Diagnosis CodeSystem Date of Diagnosis Service Delivery L ocation Telehealth Physchotherapy 30 Minutes with Patient 38633 [id number] Post-traumatic stress disor ana maria, unspecified SNOMED-CT 2021-07-17 [facility] [address] [place] [address], [id number] Vital Signs Code CodeSystem Vitals Date Value 19107-9 LOINC BMI 2019-08-13 32.78 (lb/in2) 8480-6 [facility] Blood Press ure-Systolic 2019-08-13 82 mm[HG] 8302-2 LOINC Height 2019-08-13 65 [in_i] 8867-4 [facility] Heart Rate 2019-08-13 86 /min 8462-4 [facility] Blood Press ure-Diastolic 2019-08-13 125 mm[HG] 32067-3 LOINC Weight 2019-08-13 197 [lb_av] Social History Element Description Description Start Date End Date Code CodeSystem AdditionalInfo SexAssignedAtBirth Female 1965 F AdministrativeGender Hospital Discharge Instructions * Reason For Referral Medical Equipment * FDA Assessments * Goals Section Goals Planned DateTime Yesenia will achieve mood stability, decr ease anxiety, and increase ability to control impulsive thoughts and behaviors. 2017-04-02
--- OUTSIDE RECORDS SUMMARY | 2021-09-08 04:33 | CCD ---
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 Role Phone ServageArgenis Unavailable PROBLEMS Type Condition ICD9-CM Code [id number] Code Onset Dates Condition S tatus W/U Status Risk SNOMED Code Notes Problem Multiple sclerosis G35 Active confirmed 2 6835775 Problem PTSD (post-traumatic stress disorder) F43.10 Ac tive confirmed 16766476 Problem Gastroesophageal reflux disease, esophagitis pre sence not specified K21.9 Active confirmed 368610216 Problem Chronic obstructive pulmonary disease, unspecified COPD ty pe J44.9 Active confirmed 62845214 Problem Essential hypertension I10 Active confirmed 05011487 Problem Other chronic pain G89.29 Active confirmed 8 7943852 Problem Bipolar affective disorder, remission status unspecified F31.9 Active confirmed 65263323 Problem Optic neuritis H46.9 Active confirmed 27661 008 Problem Papilledema of both eyes H47.10 Active confirm ed 00722088782174542 Problem Trochanteric bursitis, left hip M70.62 Active confirmed 276360987610604 Problem Moderate persistent asthma, uncomplicated J45.40 Active confirmed 383226596 Problem Left ankle joint deformity M21.962 Active confirmed 020573795 Problem Mixed hyperlipidemia E78.2 Active confirmed 832705692 Problem Myalgia M79.1 Active confirmed 74134381 Problem Continuous dependence on cigarette smoking F17.210 Active confirmed 480716230112596 Problem Primary osteoarthritis of left knee M17.12 Acti ve confirmed 046387537454623 Problem Osteoarthritis of multiple joints, unspecified o steoarthritis type M15.9 Active confirmed 774446651 Problem Seasonal allergies J30.2 Active confirmed 4 55406470 ALLERGIES Allergen (clinical drug ingredient) Drug/Non Drug Allergy do cumented on EMR Reaction Allergy Type Onset Date Status cephalexin Keflex([facility] Code:[address]-55) irching Drug Allergy Active Naproxen Naproxen Rash Non Drug Allergy Active Flagyl Angioedema Non Drug Allergy Active gabapentin Gabapentin did not work Drug Allergy Active Sulfa Rash Non Drug Allergy Active ibuprofen Ibuprofen([facility] Code:[address]-63) vomiting Drug Allergy Active ENCOUNTERS from 1965 to 2021-06-27 Encounter Location Date Provider Diagnosis [facility] [address] [facility] [phone] [place] [address] Jun, Argenis Servage IMMUNIZATIONS Vaccine Route Administration Date Status Influenza [...] Education Language: Question Answer Notes Languages spoken: Mosotho Anglican: Question Answer Notes Anglican 33 None [...] many cigarettes a day do you smoke? - REASON FOR REFERRAL No Information VITAL SIGNS No information MEDICATIONS Medication SIG (Take, Route, Frequency, Duration) [...] Information RESULTS No Results REASON FOR VISIT adamir MEDICAL (GENERAL) HISTORY Type Description Date Medical [...] 2006 Surgical History EGD with 2 biopsies- Estefany 03/31/2018 Hospitalization History pnemonia x9 Hospitalization History vaginal bleeding 07/08/2018 Hospitalization History Acute toxic metabolic enceph alopathy secondary to alcohol intox, intentional seroquel overdose 02/02/19-02/03/19 Hospitalization History [facility] 02/03/19-02/08/19 Goals Section No Information Health Concerns No Information MEDICAL EQUIPMENT No Information MENTAL STATUS No Information FUNCTIONAL STATUS No Information ASSESSMENTS No Information PLAN OF TREATMENT Medication Medication Name Sig [...] dayprn muscle spasm for 30 days Jun, Next Appt Details Provider Name:Argenis Douglas Kathryn, 10:30:00 AM, [address] [facility], , [place], [address], Insurance Providers Payer Name Payer Address Payer Phone Insured Name Patient Relati onship to Insured Coverage Start Date Coverage End Date [facility] CLAIMS DEPT [address] [place] [phone] ANDRES MELGAR
--- OUTSIDE RECORDS SUMMARY | 2021-09-08 04:33 | CCD ---
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 Name Role Phone ServageArgenis Unavailable PROBLEMS Type Condition ICD9-CM Code [id number] Code Onset Dates Condition S tatus W/U Status Risk SNOMED Code Notes Problem Multiple sclerosis G35 Active confirmed 2 4939069 Problem PTSD (post-traumatic stress disorder) F43.10 Ac tive confirmed 67353351 Problem Gastroesophageal reflux disease, esophagitis pre sence not specified K21.9 Active confirmed 376099572 Problem Chronic obstructive pulmonary disease, unspecified COPD ty pe J44.9 Active confirmed 27117531 Problem Essential hypertension I10 Active confirmed 66316782 Problem Other chronic pain G89.29 Active confirmed 8 1648569 Problem Bipolar affective disorder, remission status unspecified F31.9 Active confirmed 38120459 Problem Optic neuritis H46.9 Active confirmed 90164 008 Problem Papilledema of both eyes H47.10 Active confirm ed 00516555546523041 Problem Trochanteric bursitis, left hip M70.62 Active confirmed 418926632254075 Problem Moderate persistent asthma, uncomplicated J45.40 Active confirmed 238896860 Problem Left ankle joint deformity M21.962 Active confirmed 610300886 Problem Mixed hyperlipidemia E78.2 Active confirmed 970669068 Problem Myalgia M79.1 Active confirmed 96517098 Problem Continuous dependence on cigarette smoking F17.210 Active confirmed 761313123406830 Problem Primary osteoarthritis of left knee M17.12 Acti ve confirmed 664998859524288 Problem Osteoarthritis of multiple joints, unspecified o steoarthritis type M15.9 Active confirmed 994811623 Problem Seasonal allergies J30.2 Active confirmed 4 67554644 ALLERGIES Allergen (clinical drug ingredient) Drug/Non Drug Allergy do cumented on EMR Reaction Allergy Type Onset Date Status cephalexin Keflex([facility] Code:[address]-04) irching Drug Allergy Active Naproxen Naproxen Rash Non Drug Allergy Active Flagyl Angioedema Non Drug Allergy Active gabapentin Gabapentin did not work Drug Allergy Active Sulfa Rash Non Drug Allergy Active ibuprofen Ibuprofen([facility] Code:[address]-43) vomiting Drug Allergy Active ENCOUNTERS from 1965 to 2021-07-23 Encounter Location Date Provider Diagnosis [facility] [address] [facility] [phone] [place] [address] Jul, Argenis Servage IMMUNIZATIONS Vaccine Route Administration Date [...] Education Language: Question Answer Notes Languages spoken: Macanese Sikh: Question Answer Notes Sikh 33 None Sexual Hx: Question Answer Notes [...] Once a day for 30 day(s) Active Atorvastatin Calcium 20 MG 1 tablet Orally Once a day for 30 day(s) Active Lisinopril 10 MG TAKE ONE TABLET BY MOUTH @6AM for 28 Active lamoTRIgine 150 MG TAKE ONE TABLET BY MOUTH TWICE DAILY Oral Lamictal Active Budesonide-Formoterol Fumarate 80-4.5 MCG/ACT INHALE T WO PUFFS BY MOUTH TWICE DAILY for 30 Active Fluticasone Propionate 50 MCG/ACT 1 spray in each nost ril Nasally Once a day for 30 day(s) Nov, Active Propranolol HCl 10 MG TAKE THREE TABLETS BY MOUTH @6AM and TAKE THREE TABLETS @6PM for 28 Active KlonoPIN 0.5 MG 1 tablet Orally twice daily Active Albuterol Sulfate HFA 108 (90 Base) MCG/ACT INHALE TWO PUFFS BY MOUTH EVERY 6 HOURS NEEDED for 28 Active Baclofen 5 MG 1 tab Orally Twice a dayprn muscle spasm for 30 days Jun, Active PROCEDURES No Information RESULTS No Results REASON FOR VISIT MS Flare MEDICAL (GENERAL) HISTORY Type Description Date Medical [...] Once a day for 30 day (s) Baclofen 5 MG 1 tab Orally Twice a dayprn muscle spasm for 30 days Jun, Budesonide-Formoterol Fumarate 80-4.5 MCG/ACT INHALE T WO PUFFS BY MOUTH TWICE DAILY for 30 Esomeprazole Magnesium 40 MG TAKE ONE CAPSULE BY MOUTH @6AM for 28 Next Appt Details Provider Name:Argenis Peralta, 10:30:00 AM, [address] [facility], , [place], [address], Insurance Providers Payer Name Payer Address Payer Phone Insured Name Patient Relati onship to Insured Coverage Start Date Coverage End Date [facility] [employer]POR[employer] CLAIMS DEPT [address] [place] [phone] ANDRES MELGAR
--- OUTSIDE RECORDS SUMMARY | 2021-09-08 04:33 | CCD ---
Author Author [facility] Organization [facility] Address Unknown Phone Unavailable Care Team Providers Care Delivery Manager Name Role Phone ServageArgenis Unavailable PROBLEMS Type Condition ICD9-CM Code HOL47-YV Code Onset Dates Condition S tatus W/U Status Risk SNOMED Code Notes Problem Multiple sclerosis G35 Active confirmed 2 8491346 Problem PTSD (post-traumatic stress disorder) F43.10 Ac tive confirmed 81637254 Problem Gastroesophageal reflux disease, esophagitis pre sence not specified K21.9 Active confirmed 041616926 Problem Chronic obstructive pulmonary disease, unspecified COPD ty pe J44.9 Active confirmed 73078024 Problem Essential hypertension I10 Active confirmed 16690132 Problem Other chronic pain G89.29 Active confirmed 8 9433518 Problem Bipolar affective disorder, remission status unspecified F31.9 Active confirmed 13702879 Problem Optic neuritis H46.9 Active confirmed 11905 008 Problem Papilledema of both eyes H47.10 Active confirm ed 66091561539241749 Problem Trochanteric bursitis, left hip M70.62 Active confirmed 301800914204042 Problem Moderate persistent asthma, uncomplicated J45.40 Active confirmed 172120635 Problem Left ankle joint deformity M21.962 Active confirmed 049352378 Problem Mixed hyperlipidemia E78.2 Active confirmed 840107205 Problem Myalgia M79.1 Active confirmed 80429629 Problem Continuous dependence on cigarette smoking F17.210 Active confirmed 473641272663749 Problem Primary osteoarthritis of left knee M17.12 Acti ve confirmed 625803773406086 Problem Osteoarthritis of multiple joints, unspecified o steoarthritis type M15.9 Active confirmed 056832077 Problem Seasonal allergies J30.2 Active confirmed 4 76187904 ALLERGIES Allergen (clinical drug ingredient) Drug/Non Drug Allergy do cumented on EMR Reaction Allergy Type Onset Date Status cephalexin Keflex([facility] Code:[address]-91) irching Drug Allergy Active Naproxen Naproxen Rash Non Drug Allergy Active Flagyl Angioedema Non Drug Allergy Active gabapentin Gabapentin did not work Drug Allergy Active Sulfa Rash Non Drug Allergy Active ibuprofen Ibuprofen([facility] Code:[address]-12) vomiting Drug Allergy Active ENCOUNTERS from 1965 to 2021-06-22 Encounter Location Date Provider Diagnosis [facility] [address] [facility] [phone] [place] [address] Jun, Argenis Servage IMMUNIZATIONS Vaccine Route Administration Date Status Influenza 18 yrs & older Flublok IM Intramuscular Oct 07, 2018 Administered Pneumococcal Adult 0.5mL Pneumovax 23 Unknown Jul 21, 012 Administered Influenza 6mo & up Fluzone [...] Education Language: Question Answer Notes Languages spoken: Senegalese Muslim: Question Answer Notes Muslim 35 None Sexual Hx: Question Answer Notes [...] every 12 hrs for 30 day(s) Active Baclofen 5 MG 1 tab Orally Twice a dayprn muscle spasm for 30 days Jun, Active lamoTRIgine 150 MG TAKE ONE TABLET BY MOUTH TWICE DAILY Oral Lamictal Active HYDROcodone-Acetaminophen 5-325 MG 1 tablet as [...] Once a day for 30 day(s) Active Albuterol Sulfate HFA 108 (90 Base) MCG/ACT INHALE TWO PUFFS BY MOUTH EVERY 6 HOURS NEEDED for 28 Active Lisinopril 10 MG 1 tab Orally Daily for Active NexIUM 40 MG 1 capsule Orally Once a day for 30 Days Active Symbicort 80-4.5 MCG/ACT 2 puffs Inhalation twice daily for 30 Days Active Singulair 10 MG 1 tablet Orally Once a day for 30 days Active Fluticasone Propionate 50 MCG/ACT 1 spray in each nost ril Nasally Once a day for 30 day(s) Nov, Active KlonoPIN 0.5 MG 1 tablet Orally twice daily Active Propranolol HCl 10 MG 3 tablet Orally Twice a day for 30 days Active Atorvastatin Calcium 20 MG 1 tablet Orally Once a day for 30 day(s) Active PROCEDURES No Information RESULTS No Results REASON FOR VISIT september MEDICAL (GENERAL) HISTORY Type Description Date Medical [...] Medication Name Sig Start Date Stop Date Baclofen 5 MG 1 tab Orally Twice a dayprn muscle spasm for 30 days Jun, Atorvastatin Calcium 20 MG 1 tablet Orally Once a day for 30 day (s) Next Appt Details Provider Name:Argenis Peralta, 10:30:00 AM, [address] [place] [address], , [place], [address], Insurance Providers Payer Name Payer Address Payer Phone Insured Name Patient Relati onship to Insured Coverage Start Date Coverage End Date [facility] CORPORATE CLAIMS DEPT [address] [facility] [phone] ANDRES MELGAR
--- OUTSIDE RECORDS SUMMARY | 2021-09-08 04:33 | CCD ---
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 Name Role Phone ServageArgenis Unavailable PROBLEMS Type Condition ICD9-CM Code TQM90-CO Code Onset Dates Condition S tatus W/U Status Risk SNOMED Code Notes Problem Multiple sclerosis G35 Active confirmed 2 9102288 Problem PTSD (post-traumatic stress disorder) F43.10 Ac tive confirmed 07473194 Problem Gastroesophageal reflux disease, esophagitis pre sence not specified K21.9 Active confirmed 804556850 Problem Chronic obstructive pulmonary disease, unspecified COPD ty pe J44.9 Active confirmed 54547453 Problem Essential hypertension I10 Active confirmed 42804779 Problem Other chronic pain G89.29 Active confirmed 8 8521430 Problem Bipolar affective disorder, remission status unspecified F31.9 Active confirmed 27241411 Problem Optic neuritis H46.9 Active confirmed 76771 008 Problem Papilledema of both eyes H47.10 Active confirm ed 21662348002335630 Problem Trochanteric bursitis, left hip M70.62 Active confirmed 163302816214480 Problem Moderate persistent asthma, uncomplicated J45.40 Active confirmed 969796904 Problem Left ankle joint deformity M21.962 Active confirmed 537535420 Problem Mixed hyperlipidemia E78.2 Active confirmed 565312494 Problem Myalgia M79.1 Active confirmed 67805191 Problem Continuous dependence on cigarette smoking F17.210 Active confirmed 515726786671223 Problem Primary osteoarthritis of left knee M17.12 Acti ve confirmed 090802109606915 Problem Osteoarthritis of multiple joints, unspecified o steoarthritis type M15.9 Active confirmed 618137382 Problem Seasonal allergies J30.2 Active confirmed 4 85230116 ALLERGIES Allergen (clinical drug ingredient) Drug/Non Drug Allergy do cumented on EMR Reaction Allergy Type Onset Date Status cephalexin Keflex([facility] Code:[address]-38) irching Drug Allergy Active Naproxen Naproxen Rash Non Drug Allergy Active Flagyl Angioedema Non Drug Allergy Active gabapentin Gabapentin did not work Drug Allergy Active Sulfa Rash Non Drug Allergy Active ibuprofen Ibuprofen([facility] Code:[address]-99) vomiting Drug Allergy Active ENCOUNTERS from 1965 to 2021-06-22 Encounter Location Date Provider Diagnosis [facility] [address] [facility] [phone] [place] [address] 16 Jun, 2021 Argenis Servage IMMUNIZATIONS Vaccine Route Administration Date [...] Education Language: Question Answer Notes Languages spoken: Cymraes Yarsani: Question Answer Notes Yarsani 33 None Sexual Hx: Question Answer Notes [...] Information RESULTS No Results REASON FOR VISIT telephone visit? MEDICAL (GENERAL) HISTORY Type Description Date Medical [...] Once a day for 30 day (s) Insurance Providers Payer Name Payer Address Payer Phone Insured Name Patient Relati onship to Insured Coverage Start Date Coverage End Date [facility] CORPORATE CLAIMS DEPT [address] [place] [phone] ANDRES MELGAR
--- OUTSIDE RECORDS SUMMARY | 2021-09-08 04:33 | CCD ---
Author Author Yesenia Meeks Organization [facility] Address Unknown Phone Unavailable Care Team Providers Care Hr Representative Name Role Phone Zackery Meeks PCP Unavailable Allergies, Adverse Reactions, Alerts Allergy Substance Code C odeSystem Reaction Severity Critic ality Status Start Date nkda Moderate Active Medications Medication Medication Code Medication CodeSystem Start Date Stop Date Route Dose Status Fill Instructions Seroquel 801994 RxNorm 2017-04-28 oral 300 mg tablet active Lamictal RxNorm 2017-04-28 oral 150 mg tablet active Klonopin 20610309 RxNorm 2016-07-09 oral 0.5 mg 1 tablet three times a day active Take 1 tablet by mouth three times a day as needed Risperdal 467669 RxNorm 2016-06-25 2016-07-09 oral 1 mg 1 tablet every night completed Take 1 tablet by mouth every night for 30 day(s) Risperdal 895090 RxNorm 2016-09-16 2017-04-28 oral 2 mg 1 1/2 tablet every night completed Take 1 1/2 tablet by mouth every night hydroxyzine HCl 074796 R xNorm 2016-08-12 oral 50 mg 1 tablet every four hours active Take 1 tablet by mouth every four hours as needed Risperdal 977971 RxNorm 2016-07-09 2016-09-08 oral 2 mg 1 tablet every night completed Take 1 tablet by mouth every night for 30 day(s) Latuda 3110486 RxNorm 2017-04-28 2017-05-28 oral 20 mg tablet active for 30 day(s) Paxil 446535 RxNorm 2017-04-28 2017-05-28 oral 20 mg tablet active for 30 day(s) Lamictal 517712 RxNorm 2016-07-10 2017-04-28 oral 100 mg 1 tablet twice a day completed Take 1 tablet by mouth twice a day Problems Problem Name Code CodeSy stem Alternate Code Alternate CodeSystem Start Date End Date Status Narrative Bipolar disorder, current episode depressed, moderate 94453577 SNOMED-CT 2016-06-20 Active Bipolar disorder, current episode depressed, moderate 40230368 SNOMED-CT 2016-06-20 Active Post-traumatic stress disorder, unspecified 86722107 SNOMED-CT 2016-06-20 Active Post-traumatic stress disorder, unspecified 85082348 SNOMED-CT 2016-06-20 Active Relevant diagnostic tests/laboratory data Narrative No Information Procedures Procedure Name Code Code System Target Site Date of Procedure Status Service Delivery Location Device Cod e Device Name Device UID Psychotherapy, 45 minutes with patient [id number] SNOMED-CT () 2016-07-[address], [id number] [phone] Psychotherapy, 45 minutes with patient 56668690 SNOMED-CT () 2016-07-[address], [id number] [phone] Psychotherapy, 45 minutes with patient 40324076 SNOMED-CT () 2016-08-[address], 783708306 [phone] Psychotherapy, 45 minutes with patient [id number] SNOMED-CT () 2017-04-[address], 224314396 [phone] Psychotherapy, 45 minutes with patient [id number] SNOMED-CT () 2017-05-[address], 437172389 [id number] Psychotherapy, 45 minutes with patient 43477704 SNOMED-CT () 2017-11-[address], 557682233 [id number] Psychotherapy, 45 minutes with patient [id number] SNOMED-CT () 2020-12-[address], 444605653 [id number] Psychotherapy, 45 minutes with patient [id number] SNOMED-CT () 2020-12-[address], 510610059 [id number] Psychotherapy, 45 minutes with patient [id number] SNOMED-CT () 2021-01-[address], 805532192 [id number] Psychotherapy, 45 minutes with patient [id number] SNOMED-CT () 2021-05-[address], 336955915 [phone] Psychotherapy, 45 minutes with patient [id number] SNOMED-CT () 2021-06-[address], 246609281 [id number] Psychotherapy, 45 minutes with patient [id number] SNOMED-CT () 2021-06-[address], 347022251 [id number] Psychotherapy, 45 minutes with patient [id number] SNOMED-CT () 2018-04-[address], [id number] [id number] Psychotherapy, 45 minutes with patient [id number] SNOMED-CT () 2020-08-[address], 187961350 [phone] Psychotherapy, 45 minutes with patient [id number] SNOMED-CT () 2020-08-[address], 421146770 [id number] Psychotherapy, 45 minutes with patient [id number] SNOMED-CT () 2020-10-[address], 841421632 [id number] Psychotherapy, 45 minutes with patient [id number] SNOMED-CT () 2020-11-[address], 373860004 [phone] Psychotherapy, 45 minutes with patient [id number] SNOMED-CT () 2020-12-[address], 423284411 [phone] Initial Psychiatric Evaluation [id number] SNOMED-CT () 2016-06-[address], [id number] [id number] Initial Psychiatric Evaluation [id number] SNOMED-CT () 2017-04-[address], 922101472 [id number] Health Monitoring / Risk Reduction Counseling - Interm ediate [id number] SNOMED-CT () 2017-04-[address], 528859817 [id number] Health Monitoring / Risk Reduction Counseling - Interm ediate [id number] SNOMED-CT () 2018-08-[address], 451778833 [id number] Health Monitoring / Risk Reduction Counseling - Interm ediate 379592863 SNOMED-CT () 2019-04-[address], 573015275 [id number] Health Monitoring / Risk Reduction Counseling - Expand ed [id number] SNOMED-CT () 2020-12-[address], 810435624 [id number] Est. Patient - E&M Intermediate [id number] SNOMED-CT () 2017-06-[address], 853167470 [phone] Est. Patient - E&M Intermediate [id number] SNOMED-CT () 2017-10-[address], [id number] [id number] Est. Patient - E&M Intermediate [id number] SNOMED-CT () 2018-06-[address], 564340611 [id number] Est. Patient - E&M Intermediate [id number] SNOMED-CT () 2018-09-[address], 602486820 [phone] Est. Patient - E&M Intermediate [id number] SNOMED-CT () 2019-01-[address], 847248844 [phone] Est. Patient - E&M Intermediate [id number] SNOMED-CT () 2019-05-[address], [id number] [id number] Est. Patient - E&M Intermediate [id number] SNOMED-CT () 2019-07-[address], 844934157 [phone] Est. Patient - E&M Intermediate [id number] SNOMED-CT () 2019-08-[address], [id number] [phone] Est. Patient - E&M Intermediate [id number] SNOMED-CT () 2020-01-[address], 104940358 [phone] Est. Patient - E&M Intermediate [id number] SNOMED-CT () 2021-02-[address], 039221881 [id number] Est. Patient - E&M Intermediate [id number] SNOMED-CT () 2021-06-[address], [id number] [phone] Est. Patient - E&M Brief [id number] SNOMED-CT () 2016-07-[address], [id number] [phone] Est. Patient - E&M Brief [id number] SNOMED-CT () 2016-09-[address], [id number] [id number] Est. Patient - E&M Brief [id number] SNOMED-CT () 2016-10-[address], [id number] [phone] Est. Patient - E&M Brief [id number] SNOMED-CT () 2017-11-[address], [id number] [phone] Est. Patient - E&M Brief [id number] SNOMED-CT () 2018-07-[address], 924769539 [id number] Est. Patient - E&M Brief [id number] SNOMED-CT () 2019-04-[address], [id number] [id number] Est. Patient - E&M Brief [id number] SNOMED-CT () 2020-03-[address], 120120081 [id number] Est. Patient - E&M Brief [id number] SNOMED-CT () 2020-07-[address], 003303586 [id number] Est. Patient - E&M Brief [id number] SNOMED-CT () 2020-10-[address], 397824374 [id number] Est. Patient - E&M Expanded [id number] SNOMED-CT () 2016-08-[address], 462725457 [phone] Est. Patient - E&M Expanded [id number] SNOMED-CT () 2017-07-[address], 661801569 [id number] Est. Patient - E&M Expanded [id number] SNOMED-CT () 2017-08-[address], 008352836 [id number] Est. Patient - E&M Expanded [id number] SNOMED-CT () 2017-12-[address], 245116760 [id number] Est. Patient - E&M Expanded [id number] SNOMED-CT () 2018-01-[address], 960131776 [id number] Est. Patient - E&M Expanded [id number] SNOMED-CT () 2018-02-[address], 279074689 [phone] Est. Patient - E&M Expanded [id number] SNOMED-CT () 2018-03-[address], 396258477 [id number] Est. Patient - E&M Expanded [id number] SNOMED-CT () 2018-04-[address], 829583400 [id number] Est. Patient - E&M Expanded [id number] SNOMED-CT () 2018-05-[address], 022182052 [phone] Est. Patient - E&M Expanded [id number] SNOMED-CT () 2019-02-[address], 672067809 [phone] Est. Patient - E&M Expanded [id number] SNOMED-CT () 2021-05-[address], 462122794 [phone] Individual Psychotherapy [id number] SNOMED-CT () 2017-09-[address], 491027038 [id number] Individual Psychotherapy [id number] SNOMED-CT () 2020-09-[address], 666065273 [id number] Individual Psychotherapy [id number] SNOMED-CT () 2020-11-[address], 935530354 [phone] Individual Psychotherapy [id number] SNOMED-CT () 2020-11-[address], 971691528 [phone] Individual Psychotherapy [id number] SNOMED-CT () 2021-01-[address], 025359891 [phone] Individual Psychotherapy [id number] SNOMED-CT () 2016-07-[address], 746864123 [id number] Individual Psychotherapy [id number] SNOMED-CT () 2016-07-[address], 299576898 [phone] Individual Psychotherapy [id number] SNOMED-CT () 2016-08-[address], 263369579 [id number] Individual Psychotherapy [id number] SNOMED-CT () 2017-04-[address], 462818073 [id number] Individual Psychotherapy [id number] SNOMED-CT () 2017-05-[address], 085987961 [phone] Individual Psychotherapy [id number] SNOMED-CT () 2017-11-[address], 818636772 [phone] Individual Psychotherapy [id number] SNOMED-CT () 2020-12-[address], 255033160 [phone] Individual Psychotherapy [id number] SNOMED-CT () 2020-12-[address], 571880088 [phone] Individual Psychotherapy [id number] SNOMED-CT () 2021-01-[address], 519078295 [phone] Individual Psychotherapy [id number] SNOMED-CT () 2021-05-[address], 081620250 [phone] Individual Psychotherapy [id number] SNOMED-CT () 2021-06-[address], 663093968 [phone] Individual Psychotherapy [id number] SNOMED-CT () 2021-06-[address], 861503233 [phone] Individual Psychotherapy [id number] SNOMED-CT () 2018-04-[address], 167351783 [id number] Individual Psychotherapy [id number] SNOMED-CT () 2020-08-[address], 331504981 [phone] Individual Psychotherapy [id number] SNOMED-CT () 2020-08-[address], 950253333 [phone] Individual Psychotherapy [id number] SNOMED-CT () 2020-10-[address], 165000232 [phone] Individual Psychotherapy [id number] SNOMED-CT () 2020-11-[address], 903326086 [phone] Individual Psychotherapy [id number] SNOMED-CT () 2020-12-[address], 882602754 [phone] Psychiatric Diagnostic Evaluation without medical serv ices [id number] SNOMED-CT () 2016-06-[address], 992191171 [phone] Psychiatric Diagnostic Evaluation without medical serv ices [id number] SNOMED-CT () 2017-02-[address], 186300751 [id number] SNOMED-CT () 2021-05-[address], 682571919 [id number] SNOMED-CT () 2021-01-[address], 991489917 [id number] SNOMED-CT () 2020-12-13 completed [facility] [address], 502530283 [id number] SNOMED-CT () 2020-12-06 completed [facility] [address], 112962245 [id number] SNOMED-CT () 2021-02-14 completed [facility] [address], 988906211 [id number] SNOMED-CT () 2020-11-[address], 872034103 [id number] SNOMED-CT () 2021-01-[address], 864104937 [id number] SNOMED-CT () 2020-11-[address], 600770722 [id number] SNOMED-CT () 2020-12-[address], 824788313 [phone] SNOMED-CT () 2020-11-[address], 317179378 [id number] SNOMED-CT () 2020-12-[address], 517728258 [id number] SNOMED-CT () 2020-11-[address], 948010985 [id number] SNOMED-CT () 2020-07-[address], 253494801 [id number] SNOMED-CT () 2020-11-[address], 286389967 [id number] SNOMED-CT () 2020-11-[address], 931998779 [phone] SNOMED-CT () 2020-11-[address], 821895150 [id number] SNOMED-CT () 2021-05-[address], 428725773 [phone] Encounters/Encounter Diagnoses Encounter Name Encounter Code Diagnosis Code Diagnosis Name Diagnosis CodeSystem Date of Diagnosis Service Delivery L ocation Medication Therapy- Low Complexity 03326 [id number] Post-traumatic stress disorder, unspecif ied SNOMED-CT 2021-06-[address] [place], [id number] Vital Signs Code CodeSystem Vitals Date Value 8302-2 LOINC Height 2019-08-13 65 [in_i] 33074-2 LOINC BMI 2019-08-13 32.78 (lb/in2) 8480-6 [facility] Blood Press ure-Systolic 2019-08-13 82 mm[HG] 59516-4 [facility] Weight 2019-08-13 197 [lb_av] 8867-4 [facility] Heart Rate 2019-08-13 86 /min 8462-4 [facility] Blood Press ure-Diastolic 2019-08-13 125 mm[HG] Social History Element Description Description Start Date End Date Code CodeSystem AdditionalInfo SexAssignedAtBirth Female 1965 F AdministrativeGender Hospital Discharge Instructions * Reason For Referral Medical Equipment * FDA Assessments * Goals Section Goals Planned DateTime Yesenia will achieve mood stability, decr ease anxiety, and increase ability to control impulsive thoughts and behaviors. 2017-04-02
--- OUTSIDE RECORDS SUMMARY | 2021-09-08 04:34 | CCD ---
Author Author [facility] Organization [facility] Address Unknown Phone Unavailable Care Team Providers Care Customer Marketing Assistant Name Role Phone Viviane Tam MD Unavailable Unavailable Viviane Tam MD Unavailable Unavailable Viviane Tam MD Unavailable Unavailable Viviane Tam MD Unavailable Unavailable Viviane Tam MD Unavailable Unavailable Viviane Tam MD Unavailable Unavailable Viviane Tam MD Unavailable Unavailable Viviane Tam MD Unavailable Unavailable Viviane Tam MD Unavailable Unavailable Viviane Tam MD Unavailable Unavailable Viviane Tam MD Unavailable Unavailable Viviane Tam MD Unavailable Unavailable Viviane Tam MD Unavailable Unavailable Viviane Tam MD Unavailable Unavailable Viviane Tam MD Unavailable Unavailable Viviane Tam MD Unavailable Unavailable Viviane Tam MD Unavailable Unavailable Viviane Tam MD Unavailable Unavailable Viviane Tam MD Unavailable Unavailable Viviane Tam MD Unavailable Unavailable Viviane Tam MD Unavailable Unavailable Viviane Tam MD Unavailable Unavailable Viviane Tam MD Unavailable Unavailable Viviane Tam MD Unavailable Unavailable Viviane Tam MD Unavailable Unavailable Viviane Tam MD Unavailable Unavailable Viviane Tam MD Unavailable Unavailable Viviane Tam MD Unavailable Unavailable Viviane Tam MD Unavailable Unavailable Viviane Tam MD Unavailable Unavailable Jeff, Meseret SKIMMER SCOOP OPERATOR SKIMMER SCOOP OPERATOR Unavailable Unavailable Jeff, A Meseret SKIMMER SCOOP OPERATOR Unavailable Unavailable Jeff, A Meseret SKIMMER SCOOP OPERATOR Unavailable Unavailable Jeff, A Meseret SKIMMER SCOOP OPERATOR Unavailable Unavailable Jeff, A Meseret SKIMMER SCOOP OPERATOR Unavailable Unavailable Jeff, A Mseeret SKIMMER SCOOP OPERATOR Unavailable Unavailable Jeff, A Meseret SKIMMER SCOOP OPERATOR Unavailable Unavailable Jeff, A Meseret SKIMMER SCOOP OPERATOR Unavailable Unavailable Jeff, A Meseret SKIMMER SCOOP OPERATOR Unavailable Unavailable Jeff, A Meseret SKIMMER SCOOP OPERATOR Unavailable Unavailable Jeff, A Meseret SKIMMER SCOOP OPERATOR Unavailable Unavailable Jeff, A Meseret SKIMMER SCOOP OPERATOR Unavailable Unavailable Jeff, A Meseret SKIMMER SCOOP OPERATOR Unavailable Unavailable Jeff, A Meseret SKIMMER SCOOP OPERATOR Unavailable Unavailable Jeff, A Meseret SKIMMER SCOOP OPERATOR Unavailable Unavailable Jeff, A Meseret SKIMMER SCOOP OPERATOR Unavailable Unavailable Jeff, A Meseret SKIMMER SCOOP OPERATOR Unavailable Unavailable Jeff, A Meseret SKIMMER SCOOP OPERATOR Unavailable Unavailable Jeff, A Meseret SKIMMER SCOOP OPERATOR Unavailable Unavailable Jeff, A Meseret SKIMMER SCOOP OPERATOR Unavailable Unavailable Jeff, A Meseret SKIMMER SCOOP OPERATOR Unavailable Unavailable Jeff, A Meseret SKIMMER SCOOP OPERATOR Unavailable Unavailable Jeff, A Meseret SKIMMER SCOOP OPERATOR Unavailable Unavailable Jeff, A Meseret SKIMMER SCOOP OPERATOR Unavailable Unavailable Jeff, A Meseret SKIMMER SCOOP OPERATOR Unavailable Unavailable Jeff, A Meseret SKIMMER SCOOP OPERATOR Unavailable Unavailable Jeff, A Meseret SKIMMER SCOOP OPERATOR Unavailable Unavailable Jeff, A Meseret SKIMMER SCOOP OPERATOR Unavailable Unavailable Jeff, A Meseret SKIMMER SCOOP OPERATOR Unavailable Unavailable Jeff, A Meseret SKIMMER SCOOP OPERATOR Unavailable Unavailable Jeff, A Meseret SKIMMER SCOOP OPERATOR Unavailable Unavailable Jeff, A Meseret SKIMMER SCOOP OPERATOR Unavailable Unavailable Re-disclosure Warning The records that you are about to access may contain information from federally-assisted alcohol or drug abuse programs. If such information is present, then the following federally mandated warning applies: This information has been disclosed to you from records protected by federal confidentiality rules (42 CFR part 2). The federal rules prohibit you from making any further disclosure of this information unless further disclosure is expressly permitted by the written consent of the person to whom it pertains or as otherwise permitted by 42 CFR part 2. A general authorization for the release of medical or other information is NOT sufficient for this purpose. The Federal rules restrict any use of the information to criminally investigate or prosecute any alcohol or drug abuse patient.The records that you are about to access may contain highly sensitive health information, the redisclosure of which is protected by Article 27-F of the [facility] Public Health law. If you continue you may have access to information: Regarding HIV / AIDS; Provided by facilities licensed or operated by the [facility] Office of Mental Health; or Provided by the [facility] Office for People With Developmental Disabilities. If such information is present, then the following [facility] mandated warning applies: This information has been disclosed to you from confidential records which are protected by state law. State law prohibits you from making any further disclosure of this information without the specific written consent of the person to whom it pertains, or as otherwise permitted by law. Any unauthorized further disclosure in violation of state law may result in a fine or retirement sentence or both. A general authorization for the release of medical or other information is NOT sufficient authorization for further disc losure. Family History Family Member Name Family Member Gender Family Member Status Date o f Status Description Data Source(s) Unknown Unknown Problem [facility] ([facility]) Encounters Encounter Providers Location Date Indications Data Source(s ) Unknown [address] [facility], [facility] [address] 07/23/2021 12:00:00 AM EDT eC ([facility]) Telehealth Physchotherapy 30 Minutes with Patient [facility] 07/17/2021 12:00:00 AM EDT [facility] Crisis Intervention [facility] 2021 12:00:00 AM EDT [facility] ([facility]) Outpatient [facility] 06/26/2021 12:00:00 AM EDT [facility] ([facility]) [place] [address] [facility] [address] 06/26/2021 12:00:00 AM EDT eCW1 ([facility]) [place] [address] [facility] [address] 06/20/2021 12:00:00 AM EDT eCW1 ([facility]) [place] [address] [facility] [address] 06/20/2021 12:00:00 AM EDT eCW1 ([facility]) [place] [address] [facility] [address] 06/18/2021 12:00:00 AM EDT eCW1 ([facility]) non-billable [facility] 06/13/2021 12:00:00 AM EDT [facility] ([facility]) [place] [address] [facility] [address] 05/25/2021 12:00:00 AM EDT eCW1 ([facility]) Crisis Intervention [facility] 05/21/2021 12:00:00 AM EDT [facility] ([facility]-billable [facility] 05/04/2021 12:00:00 AM EDT [facility] ([facility]) [place] [address] [facility] [address] 04/30/2021 12:00:00 AM EDT eCW1 ([facility]) [place] [address] [facility] [address] 04/18/2021 12:00:00 AM EDT eCW1 ([facility]) [place] [address] [facility] [address] 03/29/2021 12:00:00 AM EDT eCW1 ([facility]) [place] [address] [facility] [address] 03/26/2021 12:00:00 AM EDT eCW1 ([facility]) [place] [address] [facility] [address] 03/23/2021 12:00:00 AM EDT eCW1 ([facility]) [place] [address] [facility] [address] 03/21/2021 12:00:00 AM EDT eCW1 ([facility]) [place] [address] [facility] [address] 03/21/2021 12:00:00 AM EDT eCW1 ([facility]) [place] [address] [facility] [address] 03/21/2021 12:00:00 AM EDT eCW1 ([facility]) [place] [address] [facility] [address] 03/14/2021 12:00:00 AM EDT eCW1 ([facility]) [place] [address] [facility] [address] 03/05/2021 12:00:00 AM EDT eCW1 ([facility]) [place] [address] [facility] [address] 03/01/2021 12:00:00 AM EDT eCW1 ([facility]) [place] [address] [facility] [address] 02/23/2021 12:00:00 AM EDT eCW1 ([facility]) [place] [address] [facility] [address] 02/22/2021 12:00:00 AM EDT eCW1 ([facility]) [place] [address] [facility] [address] 02/07/2021 12:00:00 AM EDT eCW1 ([facility]) [place] [address] [facility] [address] 01/18/2021 12:00:00 AM EDT eCW1 ([facility]) [place] [address] [facility] [address] 01/16/2021 12:00:00 AM EDT eCW1 ([facility]) [place] [address] [facility] [address] 01/12/2021 12:00:00 AM EST eCW1 ([facility]) [place] [address] [facility] [address] 01/10/2021 12:00:00 AM EST eCW1 ([facility]) [place] [address] [facility] [address] 12/14/2020 12:00:00 AM EST eCW1 ([facility]) [place] [address] [facility] [address] 11/30/2020 12:00:00 AM EST eCW1 ([facility]) [place] [address] [facility] [address] 11/14/2020 12:00:00 AM EST eCW1 ([facility]) [place] [address] [facility] [address] 11/06/2020 12:00:00 AM EST eCW1 ([facility]) [place] [address] [facility] [address] 10/19/2020 12:00:00 AM EST eCW1 ([facility]) [place] [address] [facility] [address] 10/02/2020 12:00:00 AM EST eCW1 ([facility]) Unknown [address] [facility] [address] 09/18/2020 12:00:00 AM EST eCW1 ([facility]) Outpatient Attender: Meseret RAI 08/21/2020 03:3 0:17 PM EDT [facility] Outpatient Attender: Viviane Reid/Gabe/Nahid/Krishna ndamerica 07/31/2020 03:00:00 PM [facility], ) Outpatient Attender: CARIE Aguilar SKIMMER SCOOP OPERATOR FP 07/17/2020 01:09:01 P M EDT [facility] Outpatient Attender: Meseret Aguilar SKIMMER SCOOP OPERATOR FP 07/13/2020 02:4 9:40 PM EDT [facility] Outpatient Attender: Meseret Aguilar SKIMMER SCOOP OPERATOR FP 07/12/2020 11:5 7:01 AM EDT [facility] Outpatient Attender: CARIE Aguilar SKIMMER SCOOP OPERATOR FP 07/12/2020 11:39:01 A M EDT [facility] Outpatient Attender: Meseret Aguilar [facility] FP 07/12/2020 11:3 9:00 AM EDT [facility] Outpatient Attender: CARIE Aguilar SKIMMER SCOOP OPERATOR FP 07/12/2020 10:29:00 A M EDT [facility] Immunizations Vaccine Date Status Description Data Source(s) COVID-19 VACCINE Moderna 06/22/2021 12:00:00 AM EDT completed [facility] Vaccine Series Complete: YESThis Data wa s Submitted to [facility] Via [employer]. COVID-19 VACCINE Moderna 05/13/2021 12:00:00 AM EDT completed [facility] Vaccine Series Complete: NOThis Data was Submitted to [facility] Via [employer]. Medications Medication Brand Name Start Date Product Form Dose Route Admi nistrative Instructions Pharmacy Instructions Status Indications Reaction Description Data Source(s) Baclofen 5 MG Oral Tablet Baclofen 5 MG 06/20/2021 12:00:00 AM EDT active Baclofen 5 MG eCW1 ([facility]) Baclofen 5 MG Oral Tablet Baclofen 5 MG 06/20/2021 12:00:00 AM EDT active Baclofen 5 MG eCW1 ([facility]) Baclofen 5 MG Oral Tablet Baclofen 5 MG 06/20/2021 12:00:00 AM EDT active Baclofen 5 MG eCW1 ([facility]) Baclofen 5 MG Oral Tablet Baclofen 5 MG 06/20/2021 12:00:00 AM EDT active Baclofen 5 MG eCW1 ([facility]) Baclofen 5 MG Oral Tablet Baclofen 5 MG 06/20/2021 12:00:00 AM EDT active Baclofen 5 MG eCW1 ([facility]) Prednisone 20 MG Oral Tablet PredniSONE 20 MG PredniSONE 20 MG 03/21/2021 12:00:00 AM EDT 1.0 {tablet} active Pr edniSONE 20 MG eCW1 ([facility]) Prednisone 20 MG Oral Tablet PredniSONE 20 MG PredniSONE 20 MG 03/21/2021 12:00:00 AM EDT 1.0 {tablet} active Pr edniSONE 20 MG eCW1 ([facility]) Acetaminophen 325 MG / Hydrocodone Meghan trate 5 MG Oral Tablet Hydrocodone- Acetaminophen 5-325 MG Hydrocodone-Acetaminophen 5-325 MG 03/21/2021 12:00:00 AM EDT 1.0 {tablet_as_needed} active Hydrocodone-Acetaminophen 5-325 MG eCW1 ([facility]) Acetaminophen 325 MG / Hydrocodone Meghan trate 5 MG Oral Tablet Hydrocodone- Acetaminophen 5-325 MG Hydrocodone-Acetaminophen 5-325 MG 03/21/2021 12:00:00 AM EDT 1.0 {tablet_as_needed} active Hydrocodone-Acetaminophen 5-325 MG eCW1 ([facility]) Acetaminophen 325 MG / Hydrocodone Meghan trate 5 MG Oral Tablet HYDROcodone- Acetaminophen 5-325 MG HYDROcodone-Acetaminophen 5-325 MG 03/21/2021 12:00:00 AM EDT 1.0 {tablet_as_needed} active HYDROcodone-Acetaminophen 5-325 MG eCW1 ([facility]) Prednisone 20 MG Oral Tablet predniSONE 20 MG predniSONE 20 MG 03/21/2021 12:00:00 AM EDT 1.0 {tablet} active pr edniSONE 20 MG eCW1 ([facility]) Prednisone 20 MG Oral Tablet PredniSONE 20 MG PredniSONE 20 MG 03/21/2021 12:00:00 AM EDT 1.0 {tablet} active Pr edniSONE 20 MG eCW1 ([facility]) Acetaminophen 325 MG / Hydrocodone Meghan trate 5 MG Oral Tablet HYDROcodone- Acetaminophen 5-325 MG HYDROcodone-Acetaminophen 5-325 MG 03/21/2021 12:00:00 AM EDT 1.0 {tablet_as_needed} active HYDROcodone-Acetaminophen 5-325 MG eCW1 ([facility]) Prednisone 20 MG Oral Tablet predniSONE 20 MG predniSONE 20 MG 03/21/2021 12:00:00 AM EDT 1.0 {tablet} active pr edniSONE 20 MG eCW1 ([facility]) Acetaminophen 325 MG / Hydrocodone Meghan trate 5 MG Oral Tablet HYDROcodone- Acetaminophen 5-325 MG HYDROcodone-Acetaminophen 5-325 MG 03/21/2021 12:00:00 AM EDT 1.0 {tablet_as_needed} active HYDROcodone-Acetaminophen 5-325 MG eCW1 ([facility]) Acetaminophen 325 MG / Hydrocodone Mgehan trate 5 MG Oral Tablet Hydrocodone- Acetaminophen 5-325 MG Hydrocodone-Acetaminophen 5-325 MG 03/21/2021 12:00:00 AM EDT 1.0 {tablet_as_needed} active Hydrocodone-Acetaminophen 5-325 MG eCW1 ([facility]) Prednisone 20 MG Oral Tablet PredniSONE 20 MG PredniSONE 20 MG 03/21/2021 12:00:00 AM EDT 1.0 {tablet} active Pr edniSONE 20 MG eCW1 ([facility]) Acetaminophen 325 MG / Hydrocodone Meghan trate 5 MG Oral Tablet HYDROcodone- Acetaminophen 5-325 MG HYDROcodone-Acetaminophen 5-325 MG 03/21/2021 12:00:00 AM EDT 1.0 {tablet_as_needed} active HYDROcodone-Acetaminophen 5-325 MG eCW1 ([facility]) Acetaminophen 325 MG / Hydrocodone Meghan trate 5 MG Oral Tablet HYDROcodone- Acetaminophen 5-325 MG HYDROcodone-Acetaminophen 5-325 MG 03/21/2021 12:00:00 AM EDT 1.0 {tablet_as_needed} active HYDROcodone-Acetaminophen 5-325 MG eCW1 ([facility]) Acetaminophen 325 MG / Hydrocodone Meghan trate 5 MG Oral Tablet Hydrocodone- Acetaminophen 5-325 MG Hydrocodone-Acetaminophen 5-325 MG 03/21/2021 12:00:00 AM EDT 1.0 {tablet_as_needed} active Hydrocodone-Acetaminophen 5-325 MG eCW1 ([facility]) Acetaminophen 325 MG / Hydrocodone Meghan trate 5 MG Oral Tablet Hydrocodone- Acetaminophen 5-325 MG Hydrocodone-Acetaminophen 5-325 MG 03/21/2021 12:00:00 AM EDT 1.0 {tablet_as_needed} active Hydrocodone-Acetaminophen 5-325 MG eCW1 ([facility]) Acetaminophen 325 MG / Hydrocodone Meghan trate 5 MG Oral Tablet HYDROcodone- Acetaminophen 5-325 MG HYDROcodone-Acetaminophen 5-325 MG 03/21/2021 12:00:00 AM EDT 1.0 {tablet_as_needed} active HYDROcodone-Acetaminophen 5-325 MG eCW1 ([facility]) Acetaminophen 325 MG / Hydrocodone Meghan trate 5 MG Oral Tablet HYDROcodone- Acetaminophen 5-325 MG HYDROcodone-Acetaminophen 5-325 MG 03/21/2021 12:00:00 AM EDT 1.0 {tablet_as_needed} active HYDROcodone-Acetaminophen 5-325 MG eCW1 ([facility]) Acetaminophen 325 MG / Hydrocodone Meghan trate 5 MG Oral Tablet HYDROcodone- Acetaminophen 5-325 MG HYDROcodone-Acetaminophen 5-325 MG 03/21/2021 12:00:00 AM EDT 1.0 {tablet_as_needed} active HYDROcodone-Acetaminophen 5-325 MG eCW1 ([facility]) Prednisone 20 MG Oral Tablet predniSONE 20 MG predniSONE 20 MG 03/21/2021 12:00:00 AM EDT 1.0 {tablet} active pr edniSONE 20 MG eCW1 ([facility]) Acetaminophen 325 MG / Hydrocodone Meghan trate 5 MG Oral Tablet Hydrocodone- Acetaminophen 5-325 MG Hydrocodone-Acetaminophen 5-325 MG 03/21/2021 12:00:00 AM EDT 1.0 {tablet_as_needed} active Hydrocodone-Acetaminophen 5-325 MG eCW1 ([facility]) Acetaminophen 325 MG / Hydrocodone Meghan trate 5 MG Oral Tablet HYDROcodone- Acetaminophen 5-325 MG HYDROcodone-Acetaminophen 5-325 MG 03/21/2021 12:00:00 AM EDT 1.0 {tablet_as_needed} active HYDROcodone-Acetaminophen 5-325 MG eCW1 ([facility]) Prednisone 20 MG Oral Tablet PredniSONE 20 MG PredniSONE 20 MG 03/21/2021 12:00:00 AM EDT 1.0 {tablet} active Pr edniSONE 20 MG eCW1 ([facility]) Acetaminophen 325 MG / Hydrocodone Meghan trate 5 MG Oral Tablet HYDROcodone- Acetaminophen 5-325 MG HYDROcodone-Acetaminophen 5-325 MG 03/21/2021 12:00:00 AM EDT 1.0 {tablet_as_needed} active HYDROcodone-Acetaminophen 5-325 MG eCW1 ([facility]) Prednisone 20 MG Oral Tablet PredniSONE 20 MG PredniSONE 20 MG 03/21/2021 12:00:00 AM EDT 1.0 {tablet} active Pr edniSONE 20 MG eCW1 ([facility]) Prednisone 20 MG Oral Tablet predniSONE 20 MG predniSONE 20 MG 03/21/2021 12:00:00 AM EDT 1.0 {tablet} active pr edniSONE 20 MG eCW1 ([facility]) Prednisone 20 MG Oral Tablet predniSONE 20 MG predniSONE 20 MG 03/21/2021 12:00:00 AM EDT 1.0 {tablet} active pr edniSONE 20 MG eCW1 ([facility]) atorvastatin 20 MG Oral Tablet Atorvastatin Calcium 20 MG Atorvastatin Calcium 20 MG 03/05/2021 12:00:00 AM EDT 1.0 {tablet} activ e Atorvastatin Calcium 20 MG eCW1 ([facility]) atorvastatin 20 MG Oral Tablet Atorvastatin Calcium 20 MG Atorvastatin Calcium 20 MG 03/05/2021 12:00:00 AM EDT 1.0 {tablet} activ e Atorvastatin Calcium 20 MG eCW1 ([facility]) Cyclobenzaprine hydrochloride 10 MG Oral Tablet Cyclob enzaprine HCl 10 MG Cyclobenzaprine HCl 10 MG 03/05/2021 12:00:00 AM EDT 1.0 {tablet} active Cyclobenzaprine HCl 10 MG eCW1 ( [facility]) Cyclobenzaprine hydrochloride 10 MG Oral Tablet Cyclob enzaprine HCl 10 MG Cyclobenzaprine HCl 10 MG 03/05/2021 12:00:00 AM EDT 1.0 {tablet} active Cyclobenzaprine HCl 10 MG eCW1 ( [facility]) atorvastatin 20 MG Oral Tablet Atorvastatin Calcium 20 MG Atorvastatin Calcium 20 MG 03/05/2021 12:00:00 AM EDT 1.0 {tablet} activ e Atorvastatin Calcium 20 MG eCW1 ([facility]) atorvastatin 20 MG Oral Tablet Atorvastatin Calcium 20 MG Atorvastatin Calcium 20 MG 03/05/2021 12:00:00 AM EDT 1.0 {tablet} activ e Atorvastatin Calcium 20 MG eCW1 ([facility]) atorvastatin 20 MG Oral Tablet Atorvastatin Calcium 20 MG Atorvastatin Calcium 20 MG 03/05/2021 12:00:00 AM EDT 1.0 {tablet} activ e Atorvastatin Calcium 20 MG eCW1 ([facility]) atorvastatin 20 MG Oral Tablet Atorvastatin Calcium 20 MG Atorvastatin Calcium 20 MG 03/05/2021 12:00:00 AM EDT 1.0 {tablet} activ e Atorvastatin Calcium 20 MG eCW1 ([facility]) atorvastatin 20 MG Oral Tablet Atorvastatin Calcium 20 MG Atorvastatin Calcium 20 MG 03/05/2021 12:00:00 AM EDT 1.0 {tablet} activ e Atorvastatin Calcium 20 MG eCW1 ([facility]) Cyclobenzaprine hydrochloride 10 MG Oral Tablet Cyclob enzaprine HCl 10 MG Cyclobenzaprine HCl 10 MG 03/05/2021 12:00:00 AM EDT 1.0 {tablet} active Cyclobenzaprine HCl 10 MG eCW1 ( [facility]) atorvastatin 20 MG Oral Tablet Atorvastatin Calcium 20 MG Atorvastatin Calcium 20 MG 03/05/2021 12:00:00 AM EDT 1.0 {tablet} activ e Atorvastatin Calcium 20 MG eCW1 ([facility]) Cyclobenzaprine hydrochloride 10 MG Oral Tablet Cyclob enzaprine HCl 10 MG Cyclobenzaprine HCl 10 MG 03/05/2021 12:00:00 AM EDT 1.0 {tablet} active Cyclobenzaprine HCl 10 MG eCW1 ( [facility]) Cyclobenzaprine hydrochloride 10 MG Oral Tablet Cyclob enzaprine HCl 10 MG Cyclobenzaprine HCl 10 MG 03/05/2021 12:00:00 AM EDT 1.0 {tablet} active Cyclobenzaprine HCl 10 MG eCW1 ( [facility]) Cyclobenzaprine hydrochloride 10 MG Oral Tablet Cyclob enzaprine HCl 10 MG Cyclobenzaprine HCl 10 MG 03/05/2021 12:00:00 AM EDT 1.0 {tablet} active Cyclobenzaprine HCl 10 MG eCW1 ( [facility]) Cyclobenzaprine hydrochloride 10 MG Oral Tablet Cyclob enzaprine HCl 10 MG Cyclobenzaprine HCl 10 MG 03/05/2021 12:00:00 AM EDT 1.0 {tablet} active Cyclobenzaprine HCl 10 MG eCW1 ( [facility]) atorvastatin 20 MG Oral Tablet Atorvastatin Calcium 20 MG Atorvastatin Calcium 20 MG 03/05/2021 12:00:00 AM EDT 1.0 {tablet} activ e Atorvastatin Calcium 20 MG eCW1 ([facility]) Cyclobenzaprine hydrochloride 10 MG Oral Tablet Cyclob enzaprine HCl 10 MG Cyclobenzaprine HCl 10 MG 03/05/2021 12:00:00 AM EDT 1.0 {tablet} active Cyclobenzaprine HCl 10 MG eCW1 ( [facility]) atorvastatin 20 MG Oral Tablet Atorvastatin Calcium 20 MG Atorvastatin Calcium 20 MG 03/05/2021 12:00:00 AM EDT 1.0 {tablet} activ e Atorvastatin Calcium 20 MG eCW1 ([facility]) Cyclobenzaprine hydrochloride 10 MG Oral Tablet Cyclob enzaprine HCl 10 MG Cyclobenzaprine HCl 10 MG 03/05/2021 12:00:00 AM EDT 1.0 {tablet} active Cyclobenzaprine HCl 10 MG eCW1 ( [facility]) atorvastatin 20 MG Oral Tablet Atorvastatin Calcium 20 MG Atorvastatin Calcium 20 MG 03/05/2021 12:00:00 AM EDT 1.0 {tablet} activ e Atorvastatin Calcium 20 MG eCW1 ([facility]) atorvastatin 20 MG Oral Tablet Atorvastatin Calcium 20 MG Atorvastatin Calcium 20 MG 03/05/2021 12:00:00 AM EDT 1.0 {tablet} activ e Atorvastatin Calcium 20 MG eCW1 ([facility]) Cyclobenzaprine hydrochloride 10 MG Oral Tablet Cyclob enzaprine HCl 10 MG Cyclobenzaprine HCl 10 MG 03/05/2021 12:00:00 AM EDT 1.0 {tablet} active Cyclobenzaprine HCl 10 MG eCW1 ( [facility]) atorvastatin 20 MG Oral Tablet Atorvastatin Calcium 20 MG Atorvastatin Calcium 20 MG 03/05/2021 12:00:00 AM EDT 1.0 {tablet} activ e Atorvastatin Calcium 20 MG eCW1 ([facility]) Cyclobenzaprine hydrochloride 10 MG Oral Tablet Cyclob enzaprine HCl 10 MG Cyclobenzaprine HCl 10 MG 03/05/2021 12:00:00 AM EDT 1.0 {tablet} active Cyclobenzaprine HCl 10 MG eCW1 ( [facility]) Cyclobenzaprine hydrochloride 10 MG Oral Tablet Cyclob enzaprine HCl 10 MG Cyclobenzaprine HCl 10 MG 03/05/2021 12:00:00 AM EDT 1.0 {tablet} active Cyclobenzaprine HCl 10 MG eCW1 ( [facility]) Cyclobenzaprine hydrochloride 10 MG Oral Tablet Cyclob enzaprine HCl 10 MG Cyclobenzaprine HCl 10 MG 03/05/2021 12:00:00 AM EDT 1.0 {tablet} active Cyclobenzaprine HCl 10 MG eCW1 ( [facility]) Cyclobenzaprine hydrochloride 10 MG Oral Tablet Cyclob enzaprine HCl 10 MG Cyclobenzaprine HCl 10 MG 03/05/2021 12:00:00 AM EDT 1.0 {tablet} active Cyclobenzaprine HCl 10 MG eCW1 ( [facility]) atorvastatin 20 MG Oral Tablet Atorvastatin Calcium 20 MG Atorvastatin Calcium 20 MG 03/05/2021 12:00:00 AM EDT 1.0 {tablet} activ e Atorvastatin Calcium 20 MG eCW1 ([facility]) Lisinopril 10 MG Oral Tablet Lisinopril 10 MG 02/23/2021 12:00:00 AM E DT active Lisinopril 10 MG eCW1 ([facility]) Fluticasone Propionate 50 MCG/ACT Fluticasone Propionate 50 MCG/ACT 11/30/2020 12:00:00 AM EST 1.0 {spray_in_each_nostril} acti ve Fluticasone Propionate 50 MCG/ACT eCW1 ([facility]) Fluticasone Propionate 50 MCG/ACT Fluticasone Propionate 50 MCG/ACT 11/30/2020 12:00:00 AM EST 1.0 {spray_in_each_nostril} acti ve Fluticasone Propionate 50 MCG/ACT eCW1 ([facility]) Fluticasone Propionate 50 MCG/ACT Fluticasone Propionate 50 MCG/ACT 11/30/2020 12:00:00 AM EST 1.0 {spray_in_each_nostril} acti ve Fluticasone Propionate 50 MCG/ACT eCW1 ([facility]) Fluticasone Propionate 50 MCG/ACT Fluticasone Propionate 50 MCG/ACT 11/30/2020 12:00:00 AM EST 1.0 {spray_in_each_nostril} acti ve Fluticasone Propionate 50 MCG/ACT eCW1 ([facility]) Fluticasone Propionate 50 MCG/ACT Fluticasone Propionate 50 MCG/ACT 11/30/2020 12:00:00 AM EST 1.0 {spray_in_each_nostril} acti ve Fluticasone Propionate 50 MCG/ACT eCW1 ([facility]) Fluticasone Propionate 50 MCG/ACT Fluticasone Propionate 50 MCG/ACT 11/30/2020 12:00:00 AM EST 1.0 {spray_in_each_nostril} acti ve Fluticasone Propionate 50 MCG/ACT eCW1 ([facility]) Fluticasone Propionate 50 MCG/ACT Fluticasone Propionate 50 MCG/ACT 11/30/2020 12:00:00 AM EST 1.0 {spray_in_each_nostril} acti ve Fluticasone Propionate 50 MCG/ACT eCW1 ([facility]) Fluticasone Propionate 50 MCG/ACT Fluticasone Propionate 50 MCG/ACT 11/30/2020 12:00:00 AM EST 1.0 {spray_in_each_nostril} acti ve Fluticasone Propionate 50 MCG/ACT eCW1 ([facility]) Fluticasone Propionate 50 MCG/ACT Fluticasone Propionate 50 MCG/ACT 11/30/2020 12:00:00 AM EST 1.0 {spray_in_each_nostril} acti ve Fluticasone Propionate 50 MCG/ACT eCW1 ([facility]) Fluticasone Propionate 50 MCG/ACT Fluticasone Propionate 50 MCG/ACT 11/30/2020 12:00:00 AM EST 1.0 {spray_in_each_nostril} acti ve Fluticasone Propionate 50 MCG/ACT eCW1 ([facility]) Fluticasone Propionate 50 MCG/ACT Fluticasone Propionate 50 MCG/ACT 11/30/2020 12:00:00 AM EST 1.0 {spray_in_each_nostril} acti ve Fluticasone Propionate 50 MCG/ACT eCW1 ([facility]) Fluticasone Propionate 50 MCG/ACT Fluticasone Propionate 50 MCG/ACT 11/30/2020 12:00:00 AM EST 1.0 {spray_in_each_nostril} acti ve Fluticasone Propionate 50 MCG/ACT eCW1 ([facility]) Fluticasone Propionate 50 MCG/ACT Fluticasone Propionate 50 MCG/ACT 11/30/2020 12:00:00 AM EST 1.0 {spray_in_each_nostril} acti ve Fluticasone Propionate 50 MCG/ACT eCW1 ([facility]) Fluticasone Propionate 50 MCG/ACT Fluticasone Propionate 50 MCG/ACT 11/30/2020 12:00:00 AM EST 1.0 {spray_in_each_nostril} acti ve Fluticasone Propionate 50 MCG/ACT eCW1 ([facility]) Fluticasone Propionate 50 MCG/ACT Fluticasone Propionate 50 MCG/ACT 11/30/2020 12:00:00 AM EST 1.0 {spray_in_each_nostril} acti ve Fluticasone Propionate 50 MCG/ACT eCW1 ([facility]) Fluticasone Propionate 50 MCG/ACT Fluticasone Propionate 50 MCG/ACT 11/30/2020 12:00:00 AM EST 1.0 {spray_in_each_nostril} acti ve Fluticasone Propionate 50 MCG/ACT eCW1 ([facility]) Fluticasone Propionate 50 MCG/ACT Fluticasone Propionate 50 MCG/ACT 11/30/2020 12:00:00 AM EST 1.0 {spray_in_each_nostril} acti ve Fluticasone Propionate 50 MCG/ACT eCW1 ([facility]) Fluticasone Propionate 50 MCG/ACT Fluticasone Propionate 50 MCG/ACT 11/30/2020 12:00:00 AM EST 1.0 {spray_in_each_nostril} acti ve Fluticasone Propionate 50 MCG/ACT eCW1 ([facility]) Fluticasone Propionate 50 MCG/ACT Fluticasone Propionate 50 MCG/ACT 11/30/2020 12:00:00 AM EST 1.0 {spray_in_each_nostril} acti ve Fluticasone Propionate 50 MCG/ACT eCW1 ([facility]) Fluticasone Propionate 50 MCG/ACT Fluticasone Propionate 50 MCG/ACT 11/30/2020 12:00:00 AM EST 1.0 {spray_in_each_nostril} acti ve Fluticasone Propionate 50 MCG/ACT eCW1 ([facility]) Fluticasone Propionate 50 MCG/ACT Fluticasone Propionate 50 MCG/ACT 11/30/2020 12:00:00 AM EST 1.0 {spray_in_each_nostril} acti ve Fluticasone Propionate 50 MCG/ACT eCW1 ([facility]) Fluticasone Propionate 50 MCG/ACT Fluticasone Propionate 50 MCG/ACT 11/30/2020 12:00:00 AM EST 1.0 {spray_in_each_nostril} acti ve Fluticasone Propionate 50 MCG/ACT eCW1 ([facility]) Fluticasone Propionate 50 MCG/ACT Fluticasone Propionate 50 MCG/ACT 11/30/2020 12:00:00 AM EST 1.0 {spray_in_each_nostril} acti ve Fluticasone Propionate 50 MCG/ACT eCW1 ([facility]) Fluticasone Propionate 50 MCG/ACT Fluticasone Propionate 50 MCG/ACT 11/30/2020 12:00:00 AM EST 1.0 {spray_in_each_nostril} acti ve Fluticasone Propionate 50 MCG/ACT eCW1 ([facility]) Fluticasone Propionate 50 MCG/ACT Fluticasone Propionate 50 MCG/ACT 11/30/2020 12:00:00 AM EST 1.0 {spray_in_each_nostril} acti ve Fluticasone Propionate 50 MCG/ACT eCW1 ([facility]) Fluticasone Propionate 50 MCG/ACT Fluticasone Propionate 50 MCG/ACT 11/30/2020 12:00:00 AM EST 1.0 {spray_in_each_nostril} acti ve Fluticasone Propionate 50 MCG/ACT eCW1 ([facility]) montelukast 10 MG Oral Tablet [Singulair] Singulair 2019 12:00:00 AM EDT ORAL active [facility] ( [facility], ) Pro Comfort Inhaler Spacer Chamber Adult 07/31/2020 12:00:00 AM EDT active [facility] ([facility], ) Insurance Providers Payer name Policy type / Coverage type Policy ID Covered alliance party ID Covered alliance party's relationship to woods Policy [place] Plan Information MEDICAID [id number] SP [id number] MEDICAID [id number] SP [id number] Medicaid P [id number] S [id number] Managed Care - Community Plan [facility] P [id number] S [id number] Medicaid S [id number] S [id number] Managed Care - Community Plan [facility] P [id number] S [id number] UN COMMUNITY PLAN MCDO [id number] SP [id number] Managed Care - Community Plan [facility] P [id number] S [id number] UNHC COMMUNITY PLAN MCDHMO [id number] SP [id number] UNHC COMMUNITY PLAN MCDHMO [id number] SP [id number] UNHC COMMUNITY PLAN MCDHMO [id number] SP [id number] [facility] I [id number] Self [id number] [facility] I [id number] Self [id number] Managed Care [place] P [id number] S [id number] [place] [id number] SP [id number] Medicaid P [id number] S [id number] [place] [id number] SP [id number] C MEDICAID [id number] SP [id number] Medicaid S [id number] S [id number] Medicaid S [id number] S [id number] JOSE LUIS I [id number] Self [id number] JOSE LUIS I [id number] Self [id number] MEDICAID M [id number] Self [id number] JOSE LUIS MEDICARE [id number] SP [id number] ANSI-Medicaid [id number] ANSI-Medicaid [id number] ANSI-Medicaid [id number] ANSI-Medicaid [id number] ANSI-Medicaid [id number] ANSI-Medicaid [id number] ANSI-Medicaid [id number] ANSI-Medicaid [id number] ANSI-Medicaid [id number] ANSI-Medicaid [id number] ANSI-Medicaid [id number] ANSI-Medicaid [id number] ANSI-Medicaid [id number] ANSI-Medicaid [id number] ANSI-Medicaid [id number] ANSI-Medicaid [id number] ANSI-Medicaid [id number] ANSI-Medicaid [id number] ANSI-Medicaid [id number] ANSI-Medicaid [id number] ANSI-Medicaid [id number] ANSI-Medicaid [id number] ANSI-Medicaid [id number] ANSI-Medicaid [id number] ANSI-Medicaid [id number] ANSI-Medicaid [id number] ANSI-Medicaid [id number] ANSI-Medicaid [id number] ANSI-Medicaid [id number] ANSI-Medicaid [id number] ANSI-Medicaid [id number] ANSI-Medicaid [id number] ANSI-Medicaid [id number] ANSI-Medicaid [id number] ANSI-Medicaid [id number] ANSI-Medicaid [id number] ANSI-Medicaid [id number] ANSI-Medicaid [id number] MEDICAID [id number] SP [id number] SELF PAY ONLY [id number] SP [id number] [facility] COMM[facility] PLAN [id number] [id number] Medicaid [place] Medicaid [id number] Self [id number] JOSE LUIS [id number] SP [id number] 500 [place] O [id number] S [id number] [facility]) O [id number] S [id number] UNHC COMMUNITY PLAN MCDO [id number] SP [id number] UNHC COMMUNITY PLAN MCDO [id number] SP [id number] MEDICAID [id number] SP [id number] UNHC COMMUNITY PLAN MCDHMO [id number] SP [id number] MEDICAID [id number] SP [id number] MEDICAID [id number] SP [id number] MEDICAID [id number] SP [id number] SELF PAY UNAVAILABLE UNAVAILA BLE [facility] HEA [id number] S [id number] [facility] HEA UNAVAILABLE [id number] S UNAVAILABLE [facility] Care Hmo Commercial [id number] Self [id number] [facility] Care Hmo Commercial [id number] Self [id number] [facility] Care Hmo Commercial [id number] Self MEDICARE [id number] SP [id number] [facility]) O [id number] S [id number] Medicaid Dental S UNAVAILABLE S [place]ABLE [place] [id number] SP [id number] JOSE LUIS [id number] SP [id number] [place] [id number] SP [id number] JOSE LUIS [id number] SP [id number] [place] O [id number] S [id number] MEDICAID M [id number] S [id number] MEDICAID [id number] SP [id number] MEDICAID [id number] SP [id number] 500 ANSI-Medicaid [id number] ANSI-Medicaid [id number] Managed Care [place] P [id number] S [id number] Medicaid [facility] Part B [id number] Self [id number] [place] Commercial [id number] Self [id number] JOSE LUIS MEDICARE [id number] SP [id number] ANSI-Medicaid [id number] ANSI-Medicaid [id number] Medicaid [place] Medicaid [id number] Self [id number] ANSI-Medicaid [id number] ANSI-Medicaid [id number] ANSI-Medicaid [id number] ANSI-Medicaid [id number] [facility]-Medicaid [id number] [facility]-Medicaid [id number] [facility]-Medicaid [id number] Problems, Conditions, and Diagnoses Code Display Name Description Problem Type Effective Dates Data Source(s) E78.2 [id number] Mixed hyperlipidemia Problem 03/05/2021 12:0 0:00 AM EDT eCW1 ([facility]) J45.40 [id number] Moderate persistent asthma, uncomplicated Problem 10/02/2020 12:00:00 AM EST eCW1 ([facility]) Surgeries/Procedures Procedure Description Date Indications Data Source(s) Individual psychotherapy (regime/therapy) 07/17/2021 1 2:00:00 AM EDT [facility]) Evaluation AND/OR management - established patient (procedur e) 06/26/2021 12:00:00 AM EDT [facility] ([facility]) Individual psychotherapy (regime/therapy) 06/26/2021 1 2:00:00 AM EDT [facility] ([facility]) Individual psychotherapy (regime/therapy) 06/26/2021 1 2:00:00 AM EDT [facility]) Evaluation AND/OR management - established patient (procedur e) 06/26/2021 12:00:00 AM EDT [facility] ([facility]) Individual psychotherapy (regime/therapy) 06/26/2021 1 2:00:00 AM EDT [facility]) Individual psychotherapy (regime/therapy) 06/26/2021 1 2:00:00 AM EDT [facility] ([facility]) Evaluation AND/OR management - established patient (procedur e) 06/26/2021 12:00:00 AM EDT [facility] ([facility]) Individual psychotherapy (regime/therapy) 06/26/2021 1 2:00:00 AM EDT [facility] ([facility]) Individual psychotherapy (regime/therapy) 06/26/2021 1 2:00:00 AM EDT [facility] ([facility]) Individual psychotherapy (regime/therapy) 06/12/2021 1 2:00:00 AM EDT [facility] ([facility]) Individual psychotherapy (regime/therapy) 06/12/2021 1 2:00:00 AM EDT [facility] ([facility]) Individual psychotherapy (regime/therapy) 06/12/2021 1 2:00:00 AM EDT [facility] ([facility]) Individual psychotherapy (regime/therapy) 06/12/2021 1 2:00:00 AM EDT [facility] ([facility]) Individual psychotherapy (regime/therapy) 06/12/2021 1 2:00:00 AM EDT [facility] ([facility]) Individual psychotherapy (regime/therapy) 06/12/2021 1 2:00:00 AM EDT [facility] ([facility]) Individual psychotherapy (regime/therapy) 06/12/2021 1 2:00:00 AM EDT [facility] ([facility]) Individual psychotherapy (regime/therapy) 06/12/2021 1 2:00:00 AM EDT [facility] ([facility]) Individual psychotherapy (regime/therapy) 05/30/2021 1 2:00:00 AM EDT [facility] ([facility]) Individual psychotherapy (regime/therapy) 05/30/2021 1 2:00:00 AM EDT [facility] ([facility]) Individual psychotherapy (regime/therapy) 05/30/2021 1 2:00:00 AM EDT [facility] ([facility]) Individual psychotherapy (regime/therapy) 05/30/2021 1 2:00:00 AM EDT [facility] ([facility]) Individual psychotherapy (regime/therapy) 05/30/2021 1 2:00:00 AM EDT [facility] ([facility]) Individual psychotherapy (regime/therapy) 05/30/2021 1 2:00:00 AM EDT [facility] ([facility]) Individual psychotherapy (regime/therapy) 05/30/2021 1 2:00:00 AM EDT [facility] ([facility]) Individual psychotherapy (regime/therapy) 05/30/2021 1 2:00:00 AM EDT [facility] ([facility]) Evaluation AND/OR management - established patient (procedur e) 05/14/2021 12:00:00 AM EDT [facility] ([facility]) Evaluation AND/OR management - established patient (procedur e) 05/14/2021 12:00:00 AM EDT [facility] ([facility]) Evaluation AND/OR management - established patient (procedur e) 05/14/2021 12:00:00 AM EDT [facility] ([facility]) Evaluation AND/OR management - established patient (procedur e) 05/14/2021 12:00:00 AM EDT [facility] ([facility]) Evaluation AND/OR management - established patient (procedur e) 05/14/2021 12:00:00 AM EDT [facility] ([facility]) Evaluation AND/OR management - established patient (procedur e) 02/14/2021 12:00:00 AM EDT [facility] ([facility]) Evaluation AND/OR management - established patient (procedur e) 02/14/2021 12:00:00 AM EDT [facility] ([facility]) Evaluation AND/OR management - established patient (procedur e) 02/14/2021 12:00:00 AM EDT [facility] ([facility]) Evaluation AND/OR management - established patient (procedur e) 02/14/2021 12:00:00 AM EDT [facility] ([facility]) Evaluation AND/OR management - established patient (procedur e) 02/14/2021 12:00:00 AM EDT [facility] ([facility]) Evaluation AND/OR management - established patient (procedur e) 02/14/2021 12:00:00 AM EDT [facility] ([facility]) Individual psychotherapy (regime/therapy) 01/31/2021 1 2:00:00 AM EDT [facility] ([facility]) Individual psychotherapy (regime/therapy) 01/31/2021 1 2:00:00 AM EDT [facility] ([facility]) Individual psychotherapy (regime/therapy) 01/31/2021 1 2:00:00 AM EDT [facility] ([facility]) Individual psychotherapy (regime/therapy) 01/31/2021 1 2:00:00 AM EDT [facility] ([facility]) Individual psychotherapy (regime/therapy) 01/31/2021 1 2:00:00 AM EDT [facility] ([facility]) Individual psychotherapy (regime/therapy) 01/31/2021 1 2:00:00 AM EDT [facility] ([facility]) Individual psychotherapy (regime/therapy) 01/03/2021 1 2:00:00 AM EST [facility] ([facility]) Individual psychotherapy (regime/therapy) 01/03/2021 1 2:00:00 AM EST [facility] ([facility]) Individual psychotherapy (regime/therapy) 01/03/2021 1 2:00:00 AM EST [facility] ([facility]) Individual psychotherapy (regime/therapy) 01/03/2021 1 2:00:00 AM EST [facility] ([facility]) Individual psychotherapy (regime/therapy) 01/03/2021 1 2:00:00 AM EST [facility] ([facility]) Individual psychotherapy (regime/therapy) 01/03/2021 1 2:00:00 AM EST [facility] ([facility]) Individual psychotherapy (regime/therapy) 01/03/2021 1 2:00:00 AM EST [facility] ([facility]) Individual psychotherapy (regime/therapy) 01/03/2021 1 2:00:00 AM EST [facility] ([facility]) Individual psychotherapy (regime/therapy) 01/03/2021 1 2:00:00 AM EST [facility] ([facility]) Individual psychotherapy (regime/therapy) 01/03/2021 1 2:00:00 AM EST [facility] ([facility]) Individual psychotherapy (regime/therapy) 01/03/2021 1 2:00:00 AM EST [facility] ([facility]) Individual psychotherapy (regime/therapy) 01/03/2021 1 2:00:00 AM EST [facility] ([facility]) Education about risk reduction technique (procedure) 12/25/2020 12:00:00 AM EST [facility] ([facility]) Education about risk reduction technique (procedure) 12/25/2020 12:00:00 AM EST [facility] ([facility]) Education about risk reduction technique (procedure) 12/25/2020 12:00:00 AM EST [facility] ([facility]) Education about risk reduction technique (procedure) 12/25/2020 12:00:00 AM EST [facility] ([facility]) Education about risk reduction technique (procedure) 12/25/2020 12:00:00 AM EST [employer] ([facility]) Education about risk reduction technique (procedure) 12/25/2020 12:00:00 AM EST [employer] ([facility]) Individual psychotherapy (regime/therapy) 12/20/2020 1 2:00:00 AM EST [employer] ([facility]) Individual psychotherapy (regime/therapy) 12/20/2020 1 2:00:00 AM EST [employer] ([facility]) Individual psychotherapy (regime/therapy) 12/20/2020 1 2:00:00 AM EST [employer] ([facility]) Individual psychotherapy (regime/therapy) 12/20/2020 1 2:00:00 AM EST [employer] ([facility]) Individual psychotherapy (regime/therapy) 12/20/2020 1 2:00:00 AM EST [employer] ([facility]) Individual psychotherapy (regime/therapy) 12/20/2020 1 2:00:00 AM EST [employer] ([facility]) Individual psychotherapy (regime/therapy) 12/20/2020 1 2:00:00 AM EST [employer] ([facility]) Individual psychotherapy (regime/therapy) 12/20/2020 1 2:00:00 AM EST [employer] ([facility]) Individual psychotherapy (regime/therapy) 12/20/2020 1 2:00:00 AM EST [employer] ([facility]) Individual psychotherapy (regime/therapy) 12/20/2020 1 2:00:00 AM EST [employer] ([facility]) Individual psychotherapy (regime/therapy) 12/20/2020 1 2:00:00 AM EST [employer] ([facility]) Individual psychotherapy (regime/therapy) 12/20/2020 1 2:00:00 AM EST [employer] ([facility]) Individual psychotherapy (regime/therapy) 12/13/2020 1 2:00:00 AM EST [employer] ([facility]) Individual psychotherapy (regime/therapy) 12/13/2020 1 2:00:00 AM EST [employer] ([facility]) Individual psychotherapy (regime/therapy) 12/13/2020 1 2:00:00 AM EST [employer] ([facility]) Individual psychotherapy (regime/therapy) 12/13/2020 1 2:00:00 AM EST [employer] ([facility]) Individual psychotherapy (regime/therapy) 12/13/2020 1 2:00:00 AM EST [employer] ([facility]) Individual psychotherapy (regime/therapy) 12/13/2020 1 2:00:00 AM EST [employer] ([facility]) Individual psychotherapy (regime/therapy) 12/13/2020 1 2:00:00 AM EST [employer] ([facility]) Individual psychotherapy (regime/therapy) 12/13/2020 1 2:00:00 AM EST [employer] ([facility]) Individual psychotherapy (regime/therapy) 12/13/2020 1 2:00:00 AM EST [employer] ([facility]) Individual psychotherapy (regime/therapy) 12/13/2020 1 2:00:00 AM EST [employer] ([facility]) Individual psychotherapy (regime/therapy) 12/13/2020 1 2:00:00 AM EST [employer] ([facility]) Individual psychotherapy (regime/therapy) 12/13/2020 1 2:00:00 AM EST [employer] ([facility]) Individual psychotherapy (regime/therapy) 12/06/2020 1 2:00:00 AM EST [employer] ([facility]) Individual psychotherapy (regime/therapy) 12/06/2020 1 2:00:00 AM EST [employer] ([facility]) Individual psychotherapy (regime/therapy) 12/06/2020 1 2:00:00 AM EST [employer] ([facility]) Individual psychotherapy (regime/therapy) 12/06/2020 1 2:00:00 AM EST [employer] ([facility]) Individual psychotherapy (regime/therapy) 12/06/2020 1 2:00:00 AM EST [employer] ([facility]) Individual psychotherapy (regime/therapy) 12/06/2020 1 2:00:00 AM EST [employer] ([facility]) Individual psychotherapy (regime/therapy) 12/06/2020 1 2:00:00 AM EST [employer] ([facility]) Individual psychotherapy (regime/therapy) 12/06/2020 1 2:00:00 AM EST [employer] ([facility]) Individual psychotherapy (regime/therapy) 12/06/2020 1 2:00:00 AM EST [employer] ([facility]) Individual psychotherapy (regime/therapy) 12/06/2020 1 2:00:00 AM EST [employer] ([facility]) Individual psychotherapy (regime/therapy) 12/06/2020 1 2:00:00 AM EST [employer] ([facility]) Individual psychotherapy (regime/therapy) 12/06/2020 1 2:00:00 AM EST [employer] ([facility]) Individual psychotherapy (regime/therapy) 11/22/2020 1 2:00:00 AM EST [employer] ([facility]) Individual psychotherapy (regime/therapy) 11/22/2020 1 2:00:00 AM EST [employer] ([facility]) Individual psychotherapy (regime/therapy) 11/22/2020 1 2:00:00 AM EST [employer] ([facility]) Individual psychotherapy (regime/therapy) 11/22/2020 1 2:00:00 AM EST [employer] ([facility]) Individual psychotherapy (regime/therapy) 11/22/2020 1 2:00:00 AM EST [employer] ([facility]) Individual psychotherapy (regime/therapy) 11/22/2020 1 2:00:00 AM EST [employer] ([facility]) Individual psychotherapy (regime/therapy) 11/15/2020 1 2:00:00 AM EST [employer] ([facility]) Individual psychotherapy (regime/therapy) 11/15/2020 1 2:00:00 AM EST [employer] ([facility]) Individual psychotherapy (regime/therapy) 11/15/2020 1 2:00:00 AM EST [employer] ([facility]) Individual psychotherapy (regime/therapy) 11/15/2020 1 2:00:00 AM EST [employer] ([facility]) Individual psychotherapy (regime/therapy) 11/15/2020 1 2:00:00 AM EST [employer] ([facility]) Individual psychotherapy (regime/therapy) 11/15/2020 1 2:00:00 AM EST [employer] ([facility]) Individual psychotherapy (regime/therapy) 11/08/2020 1 2:00:00 AM EST [employer] ([facility]) Individual psychotherapy (regime/therapy) 11/08/2020 1 2:00:00 AM EST [employer] ([facility]) Individual psychotherapy (regime/therapy) 11/08/2020 1 2:00:00 AM EST [employer] ([facility]) Individual psychotherapy (regime/therapy) 11/08/2020 1 2:00:00 AM EST [employer] ([facility]) Individual psychotherapy (regime/therapy) 11/08/2020 1 2:00:00 AM EST [employer] ([facility]) Individual psychotherapy (regime/therapy) 11/08/2020 1 2:00:00 AM EST [employer] ([facility]) Individual psychotherapy (regime/therapy) 11/08/2020 1 2:00:00 AM EST [employer] ([facility]) Individual psychotherapy (regime/therapy) 11/08/2020 1 2:00:00 AM EST [employer] ([facility]) Individual psychotherapy (regime/therapy) 11/08/2020 1 2:00:00 AM EST [employer] ([facility]) Individual psychotherapy (regime/therapy) 11/08/2020 1 2:00:00 AM EST [employer] ([facility]) Individual psychotherapy (regime/therapy) 11/08/2020 1 2:00:00 AM EST [employer] ([facility]) Individual psychotherapy (regime/therapy) 11/08/2020 1 2:00:00 AM EST [employer] ([facility]) Individual psychotherapy (regime/therapy) 10/18/2020 1 2:00:00 AM EST [employer] ([facility]) Individual psychotherapy (regime/therapy) 10/18/2020 1 2:00:00 AM EST [employer] ([facility]) Individual psychotherapy (regime/therapy) 10/18/2020 1 2:00:00 AM EST [employer] ([facility]) Individual psychotherapy (regime/therapy) 10/18/2020 1 2:00:00 AM EST [employer] ([facility]) Individual psychotherapy (regime/therapy) 10/18/2020 1 2:00:00 AM EST [employer] ([facility]) Individual psychotherapy (regime/therapy) 10/18/2020 1 2:00:00 AM EST [employer] ([facility]) Individual psychotherapy (regime/therapy) 10/18/2020 1 2:00:00 AM EST [employer] ([facility]) Individual psychotherapy (regime/therapy) 10/18/2020 1 2:00:00 AM EST [employer] ([facility]) Individual psychotherapy (regime/therapy) 10/18/2020 1 2:00:00 AM EST [employer] ([facility]) Individual psychotherapy (regime/therapy) 10/18/2020 1 2:00:00 AM EST [employer] ([facility]) Individual psychotherapy (regime/therapy) 10/18/2020 1 2:00:00 AM EST [employer] ([facility]) Individual psychotherapy (regime/therapy) 10/18/2020 1 2:00:00 AM EST [employer] ([facility]) Evaluation AND/OR management - established patient (procedur e) 10/16/2020 12:00:00 AM EST [employer] ([facility]) Evaluation AND/OR management - established patient (procedur e) 10/16/2020 12:00:00 AM EST [employer] ([facility]) Evaluation AND/OR management - established patient (procedur e) 10/16/2020 12:00:00 AM EST [employer] ([facility]) Evaluation AND/OR management - established patient (procedur e) 10/16/2020 12:00:00 AM EST [employer] ([facility]) Evaluation AND/OR management - established patient (procedur e) 10/16/2020 12:00:00 AM EST [employer] ([facility]) Evaluation AND/OR management - established patient (procedur e) 10/16/2020 12:00:00 AM EST [employer] ([facility]) Individual psychotherapy (regime/therapy) 09/13/2020 1 2:00:00 AM EST [employer] ([facility]) Individual psychotherapy (regime/therapy) 09/13/2020 1 2:00:00 AM EST [employer] ([facility]) Individual psychotherapy (regime/therapy) 09/13/2020 1 2:00:00 AM EST [employer] ([facility]) Individual psychotherapy (regime/therapy) 09/13/2020 1 2:00:00 AM EST [employer] ([facility]) Individual psychotherapy (regime/therapy) 09/13/2020 1 2:00:00 AM EST [employer] ([facility]) Individual psychotherapy (regime/therapy) 09/13/2020 1 2:00:00 AM EST [employer] ([facility]) Individual psychotherapy (regime/therapy) 08/30/2020 1 2:00:00 AM EDT [employer] ([facility]) Individual psychotherapy (regime/therapy) 08/30/2020 1 2:00:00 AM EDT [facility] ([facility]) Individual psychotherapy (regime/therapy) 08/30/2020 1 2:00:00 AM EDT [facility] ([facility]) Individual psychotherapy (regime/therapy) 08/30/2020 1 2:00:00 AM EDT [facility] ([facility]) Individual psychotherapy (regime/therapy) 08/30/2020 1 2:00:00 AM EDT [facility] ([facility]) Individual psychotherapy (regime/therapy) 08/30/2020 1 2:00:00 AM EDT [facility] ([facility]) Individual psychotherapy (regime/therapy) 08/30/2020 1 2:00:00 AM EDT [facility] ([facility]) Individual psychotherapy (regime/therapy) 08/30/2020 1 2:00:00 AM EDT [facility] ([facility]) Individual psychotherapy (regime/therapy) 08/30/2020 1 2:00:00 AM EDT [facility] ([facility]) Individual psychotherapy (regime/therapy) 08/30/2020 1 2:00:00 AM EDT [facility] ([facility]) Individual psychotherapy (regime/therapy) 08/30/2020 1 2:00:00 AM EDT [facility] ([facility]) Individual psychotherapy (regime/therapy) 08/30/2020 1 2:00:00 AM EDT [facility] ([facility]) Individual psychotherapy (regime/therapy) 08/16/2020 1 2:00:00 AM EDT [facility] ([facility]) Individual psychotherapy (regime/therapy) 08/16/2020 1 2:00:00 AM EDT [facility] ([facility]) Individual psychotherapy (regime/therapy) 08/16/2020 1 2:00:00 AM EDT [facility] ([facility]) Individual psychotherapy (regime/therapy) 08/16/2020 1 2:00:00 AM EDT [facility] ([facility]) Individual psychotherapy (regime/therapy) 08/16/2020 1 2:00:00 AM EDT [facility] ([facility]) Individual psychotherapy (regime/therapy) 08/16/2020 1 2:00:00 AM EDT [facility] ([facility]) Individual psychotherapy (regime/therapy) 08/16/2020 1 2:00:00 AM EDT [facility] ([facility]) Individual psychotherapy (regime/therapy) 08/16/2020 1 2:00:00 AM EDT [facility] ([facility]) Individual psychotherapy (regime/therapy) 08/16/2020 1 2:00:00 AM EDT [facility] ([facility]) Individual psychotherapy (regime/therapy) 08/16/2020 1 2:00:00 AM EDT [facility] ([facility]) Individual psychotherapy (regime/therapy) 08/16/2020 1 2:00:00 AM EDT [facility] ([facility]) Individual psychotherapy (regime/therapy) 08/16/2020 1 2:00:00 AM EDT [facility] ([facility]) Spirometry 07/31/2020 12:00:00 AM EDT [facility] MELENDEZ ([facility], ) Evaluation AND/OR management - established patient (procedur e) 07/12/2020 12:00:00 AM EDT [facility] ([facility]) Evaluation AND/OR management - established patient (procedur e) 07/12/2020 12:00:00 AM EDT [facility] ([facility]) Evaluation AND/OR management - established patient (procedur e) 07/12/2020 12:00:00 AM EDT [facility] ([facility]) Evaluation AND/OR management - established patient (procedur e) 07/12/2020 12:00:00 AM EDT [facility] ([facility]) Evaluation AND/OR management - established patient (procedur e) 07/12/2020 12:00:00 AM EDT [facility] ([facility]) Evaluation AND/OR management - established patient (procedur e) 07/12/2020 12:00:00 AM EDT [facility] ([facility]) Results ID Date Data Source [id number] 07/23/2021 10:03:00 AM EDT [facility] Name Value Range Interpretation Code Description Data Jody rce(s) Supporting Document(s) SARS coronavirus 2 RNA [Presence] in Res piratory specimen by TATIANA with probe detection NEGATIVE [facility] This lab was ordered by [facility] a nd reported by [facility]. ID Date Data Source [id number] 05/12/2021 12:00:00 AM EDT [facility] Name Value Range Interpretation Code Description Data Jody rce(s) Supporting Document(s) SARS-CoV2 Rapid Antigen Negative [facility] This lab was ordered by [facility] and reported by [facility]. ID Date Data Source RENAL PROFILE 03/21/2021 12:00:00 AM EDT eCW1 ([facility]) Name Value Range Interpretation Code Description Data Jody rce(s) Supporting Document(s) 104 70-100 GLUCOSE, FASTING eCW1 ([facility]) 11 7-18 BLOOD UREA NITROGEN eCW1 ([facility]) 0.58 0.55-1.30 CREATININE FOR GFR eCW1 (Pending sale to [facility]) > 60.0 >51 GLOMERULAR FILTRATION RATE eCW 1 ([facility]) 138 136-145 SODIUM LEVEL eCW1 ([facility]) 103 98-107 CHLORIDE LEVEL eCW1 ([facility]) 4.3 3.5-5.1 POTASSIUM SERUM eCW1 ([facility]) 9.1 8.5-10.1 CALCIUM LEVEL eCW1 ([facility]) 28 21-32 CARBON DIOXIDE LEVEL eCW1 ([facility]) 4.0 2.5-4.9 PHOSPHORUS LEVEL eCW1 ([facility]) 3.7 3.2-5.2 ALBUMIN eCW1 ([facility]) ID Date Data Source ERYTHROCYTE SEDIMENTATION RATE 03/21/2021 12:00:00 AM EDT eC W1 ([facility]) Name Value Range Interpretation Code Description Data Jody rce(s) Supporting Document(s) 34 0-30 ERYTHROCYTE SEDIMENTATION RATE eCW1 ([facility]) ID Date Data Source C REACTIVE PROTEIN QUANTITATIV (At [facility]) 03/21/2021 12:00 :00 AM EDT eCW1 ([facility]) Name Value Range Interpretation Code Description Data Jody rce(s) Supporting Document(s) 0.30 0.00-0.30 C REACTIVE PROTEIN QUANTI TATIV eCW1 ([facility]) ID Date Data Source NT-PRO BNP 03/21/2021 12:00:00 AM EDT eCW1 ([facility]) Name Value Range Interpretation Code Description Data Jody rce(s) Supporting Document(s) 113 <125 NT-PRO BNP eCW1 ([facility]) ID Date Data Source [id number] 11/22/2020 12:00:00 AM EST [facility] Name Value Range Interpretation Code Description Data Jody rce(s) Supporting Document(s) SARS-CoV2 Rapid Antigen Negative [facility] This lab was ordered by [facility] and reported by [facility]. ID Date Data Source Comprehensive Metabolic Profile (CMP) 10/02/2020 12:00:00 AM EST eCW1 ([facility]) Name Value Range Interpretation Code Description Data Jody rce(s) Supporting Document(s) 16 7-18 BLOOD UREA NITROGEN eCW1 ([facility]) 101 70-100 GLUCOSE, FASTING eCW1 ([facility]) 4.0 3.5-5.1 POTASSIUM SERUM eCW1 ([facility]) > 60.0 >51 GLOMERULAR FILTRATION RATE eCW 1 ([facility]) 139 136-145 SODIUM LEVEL eCW1 ([facility]) 0.66 0.55-1.30 CREATININE FOR GFR eCW1 (Pending sale to [facility]) 105 98-107 CHLORIDE LEVEL eCW1 ([facility]) 8 7-37 AST/SGOT eCW1 ([facility]) 29 21-32 CARBON DIOXIDE LEVEL eCW1 ([facility]) 9.3 8.5-10.1 CALCIUM LEVEL eCW1 ([facility]) 3.7 3.2-5.2 ALBUMIN eCW1 ([facility]) 15 12-78 ALT/SGPT eCW1 ([facility]) 7.4 6.4-8.2 TOTAL PROTEIN eCW1 ([facility]) 0.2 0.2-1.0 BILIRUBIN,TOTAL eCW1 ([facility]) 96 45-117 ALKALINE PHOSPHATASE eCW1 ([facility]) 1.0 1.2-2.2 ALBUMIN/GLOBULIN RATIO eCW1 (Pending sale to [facility]) ID Date Data Source [id number] 07/31/2020 02:45:00 PM EDT [facility] ([facility], ) Name Value Range Interpretation Code Description Data Jody rce(s) Supporting Document(s) PDFReport Laboratory test result [facility] ([facility], ) FVC-Pred 3.00 L [facility] ([facility]) FVC-Pre 2.90 L [facility] ([facility]) FVC-%Pred-Pre 96 L [facility] ([facility]) FVC-LLN 2.39 L [facility] ([facility]) Fev1-Pred 2.37 L [facility] ([facility]) Fev1-Pre 2.22 L [facility] ([facility]) Fev1-%Pred-Pre 93 L [facility] ([facility]) Fev6-Pred 2.92 L [facility] ([facility]) Fev1-LLN 1.85 L [facility] ([facility]) Fev6-Pre 2.90 L [facility] ([facility]) Fev6-%Pred-Pre 99 L [facility] ([facility]) Fev6-LLN 2.32 L [facility] ([facility]) Dxg5olv-Ttc 77 % [facility] ([facility]) Rxb4ngj-Dzef 80 % [facility] ([facility]) Dbv8vnc-%Pred-Pre 96 % [facility] ([facility]) Cwm2mce-Mpzx 97 % [facility] ([facility]) Xvp4wqi-ZHN 70 % [facility] ([facility]) Ikp8kcm-Klz 100 % [facility] ([facility] ) Gzw2mru-%Pred-Pre 103 % [facility] ([facility]) FEFMax-Pred 6.03 L/E/sec [facility] ([facility]) FEFMax-Pre 4.19 L/E/sec [facility] ([facility]) FEFMax-%Pred-Pre 69 L/E/sec [facility] ([facility]) FEFMax-LLN 4.52 L/E/sec [facility] ([facility]) [id number]-Wfxb 2.42 L/E/sec [facility] ([facility]) Wre5896-Rkc 1.89 L/E/sec [facility] ([facility]) Dse2505-DDP 1.33 L/E/sec [facility] ([facility]) Byq9994-%Pred-Pre 78 L/E/sec [facility] ([facility]) ExpTime-Pre 6.03 sec [facility] ([facility]) Acd1akl9-Cayy 82 % [facility] ([facility]) Uuu0zqj2-%Pred-Pre 93 % [facility] ([facility]) Dpc6pgj4-Obw 77 % [facility] ([facility]) Ngl4ssh6-HQP 73 % [facility] ([facility]) ID Date Data Source [id number] 07/12/2020 11:15:17 AM EDT [facility] Measurements & CalculationsHeight: 60 inches (5 ft. 0 in.) 152.40 cm Weight: 187 pounds 2 oz. 85.06 kg Body Mass Index (BMI): 36.68BMI Interpretation: ObeseBody Surface Area (BSA): 1.82Weight Management Education Done (Nutrition/Physical Activity)Vital SignsTemperature: 98.5F oral Pulse Rate: 81 beats/minuteRespiratory Rate: 20 respirations/minuteBlood Pressure: 107/74 right arm sitting automaticO2 Saturation: 98% room airVital Signs performed by: Salvador Ziegler LPN, July 12, 2020 11:26 AMInitial Intake Information From: patientRoom #: 15Infectious Disease / Travel ScreeningRecent travel for you or any close contacts? NoHave you had any close contact with anyone diagnosed with or under investigation for COVID-19 (coronavirus)? NoRespiratory symptoms: cough, cold, congestion, shortness of breath, difficulty breathing? YesLoss of smell? NoLoss of taste? NoSmoking, Tobacco, Vaping or Smoke Exposure StatusSmoke Status: current every day smokerTobacco Use: YesAdv to Quit: YesDo you vape? NoMenstrual HistoryAny possibility of ? NoComments: menopause Healthcare HistorySince your last office visit...Have you been admitted to the hospital? NoHave you been to an emergency room (ER) or urgent care clinic? Yes - [facility] ([facility]) or urgent care date reported today: 07/07/2020Have you seen another healthcare provider? Yes - TLS, Pulmonary, ENTHave you seen a dentist? Yes - [facility] Rate Your HealthIn general, would you say your health is? FairPain AssessmentAre you currently having any pain which... You would like your provider to address? Yes Affects your activity level? YesDepression Screening - PHQ-2Over the last two weeks, have you... Had little interest or pleasure in doing things? Not at all Been feeling down, depressed, or hopeless? Not at all PHQ-2 Score: 0Pain AssessmentPain ScaleNumeric Rating Scale: 6 / 10Location: hip/ shoulderDuration: chronicFrequency: DailyCharacter/Quality: aching and throbbingIs the pain radiating? NoScreening, Brief Intervention, & Referral to Treatment (SBIRT)Pre-Screening Questions How many times have you have 4 or more drinks in a day? 0How many times have you used an illegal drug or used a prescription medication for a non-medical reason? 0Performed by: Salvador Ziegler LPN, July 12, 2020 11:22 AMPatient History Medical History:Anxiety DisorderasthmaDepressionDiverticulitisG E R DHypertensionKidney StoneHyperlipidemiahistory of alcoholismMultiple sclerosisOpticneritis Surgical History:Cholecystectomydentalovary removalGastrectomyFamily History:FH of AnxietyFamily History of AsthmaFH Breast CancerFH DepressionFH Heart DiseaseFH HypertensionFH High CholesterolFH Lung/Respiratory DiseaseFH Other CancerFH HeadachesFH Ovarian CancerFH Psychiatric CareFH Uterine CancerSocial/Personal History:Smoking History:Patient currently smokes every day.Patient has been counseled to quit. Advised to Quit/Tobacco Education: YesChief Complaintbreathing issues RM 15 History of Present Illness (HPI)55 yr old female Pt here today with complaints of SOB X two weeks. Pt states she is taking all medications with no side effects or issues. Was initially put on Zithromax and this did not help. Went back to Urgent Care and was put on Ceftin and prednisone. Still not feeling much better. Short of breath at rest and on ex ertion. No response to nebulizer. Has seen field assessor in the past but they are refusing to see her without another referral. She tells me she has seen them in the last 6 months. I am puzzled by this. I am going to put in a referral and get her last note. Symbicort in the past has helped but she went off this when she ran out.HPI performed by: Shay Pabon MD, July 12, 2020 11:33 AMTransitions of Care InboundProblem ReviewProblem List was reviewed and/or updated during this visit.Medication Reconciliation & ReviewMedication List was reviewed and/or updated during this visit, including review of any [id number] medications, herbal therapies, and/or supplements.Allergy ReviewAllergy List was reviewed and/or updated during this visit.Adult Preventive CareProvider Calculated and Reviewed all Clinical Protocols for patient today. Screening Tobacco Screening: Smoking Status: current every day smoker (07/12/2020) Tobacco Use: Currently (07/12/2020) Advised to Quit: Yes (07/12/2020)Labs/Meds/Other Counseling-Nutrition and Physical Activity:BMI Interpretation: Obese (07/12/2020) Counseling: Done (07/12/2020) Physical Activity: Done (07/12/2020)Review of Systems General: Denies chills, fever. Cardiovascular: Denies chest pain, palpitations, feeling faint. Respiratory: Denies difficulty breathing. Gastrointestinal: Denies diarrhea, constipation. Genitourinary: Denies pain with urination, urinary frequency, urinary urgency, incomplete emptying. Physical ExamGeneral Appearance: well nourished, well hydrated, no acute distressRespiratory, Auscultation: Fair entry but with diff use and scattered wheezing.Respiratory, Effort: no intercostal retractions or use of accessory musclesCardiovascular, Auscultation: S1, S2 audible; no murmur, rub, or gallop; RRRGait & Station: normalOrientation: oriented to time, place, and personMood & Affect: no depression, anxiety, or agitationJudgment & Insight: intactCare Management Plan Transitions of CareInboundRate Your HealthIn g eneral, would you say your health is? FairAssessment & Plan Problems:Assessed:Acute bronchitis, unspecified ([id number]) Assessment: Instructions: Restart Symbicort.Refer back to Pulmonary.To ER if worse.Recheck with Meseret her PCP in one month.Patient Instructions/Care Plan: Acute bronchitis- unspecified: Restart Symbicort.Refer back to Pulmonary.To ER if worse.Recheck with Meseret her PCP in one month. Plan developed in collaboration with patient and/or familyMedications:SYMBICORT 160-4.5 MCG/ACT INHALATION AEROSOLGEL MEMMORY FOAM MATTRESS FOR HOSPITAL BED.STANDARD FOAM MAT TRESSZOFRAN 4 MG ORAL TABLETHOSPITAL BED WITH MATTRESS.CYCLOBENZAPRINE HCL 7.5 MG ORAL TABLETZYRTEC ALLERGY 10 MG ORAL TABLETSEROQUEL 300 MG ORAL TABLETKLONOPIN 0.5 MG ORAL TABLETLAMICTAL 150 MG ORAL TABLETLISINOPRIL 20 MG ORAL TABLETPAXIL 30 MG ORAL TABLETNEXIUM 40 MG ORAL CAPSULE DELAYED RELEASEPROAIR HFA 108 (90 Base) MCG/ACT INHALATION AEROSOL SOLUTIONMedication Changes:New Prescription:SYMBICORT 160-4.5 MCG/ACT INHALATION AEROSOL-2 puffs bid. Qty: 1[Unspecified] Refills: 1 Method: ElectronicAllergies:SULFA (Critical)FLAGYL (Critical)NAPROXEN (Critical)* NSAIDS (Critical)Orders:Adult - Ofc Vst, EST, Level III [CPT-31347] Pulmonology Consult [CPT-48369] Name Value Range Interpretation Code Description Data Jody rce(s) Supporting Document(s) Procedure Social History Code Duration Value Status Description Data Source(s ) Smoking 06/20/2021 12:00:00 AM EDT Current Smoker completed Curre nt Smoker eCW1 ([facility]) Smoking 06/20/2021 12:00:00 AM EDT Current Smoker completed Curre nt Smoker eCW1 ([facility]) Smoking 06/20/2021 12:00:00 AM EDT Current Smoker completed Curre nt Smoker eCW1 ([facility]) Smoking 06/20/2021 12:00:00 AM EDT Current Smoker completed Curre nt Smoker eCW1 ([facility]) Smoking 06/20/2021 12:00:00 AM EDT Current Smoker completed Curre nt Smoker eCW1 ([facility]) Smoking 03/29/2021 12:00:00 AM EDT Current Smoker completed Curre nt Smoker eCW1 ([facility]) Smoking 03/29/2021 12:00:00 AM EDT Current Smoker completed Curre nt Smoker eCW1 ([facility]) Smoking 03/29/2021 12:00:00 AM EDT Current Smoker completed Curre nt Smoker eCW1 ([facility]) Smoking 03/29/2021 12:00:00 AM EDT Current Smoker completed Curre nt Smoker eCW1 ([facility]) Smoking 03/29/2021 12:00:00 AM EDT Current Smoker completed Curre nt Smoker eCW1 ([facility]) Smoking 03/29/2021 12:00:00 AM EDT Current Smoker completed Curre nt Smoker eCW1 ([facility]) Smoking 03/21/2021 12:00:00 AM EDT Current Smoker completed Curre nt Smoker eCW1 ([facility]) Smoking 03/21/2021 12:00:00 AM EDT Current Smoker completed Curre nt Smoker eCW1 ([facility]) Smoking 03/21/2021 12:00:00 AM EDT Current Smoker completed Curre nt Smoker eCW1 ([facility]) Smoking 03/21/2021 12:00:00 AM EDT Current Smoker completed Curre nt Smoker eCW1 ([facility]) Smoking 03/21/2021 12:00:00 AM EDT Current Smoker completed Curre nt Smoker eCW1 ([facility]) Smoking 03/05/2021 12:00:00 AM EDT Current Smoker completed Curre nt Smoker eCW1 ([facility]) Smoking 03/05/2021 12:00:00 AM EDT Current Smoker completed Curre nt Smoker eCW1 ([facility]) Smoking 03/05/2021 12:00:00 AM EDT Current Smoker completed Curre nt Smoker eCW1 ([facility]) Smoking 11/08/2020 12:00:00 AM EST Current Smoker completed Curre nt Smoker eCW1 ([facility]) Smoking 11/08/2020 12:00:00 AM EST Current Smoker completed Curre nt Smoker eCW1 ([facility]) Smoking 11/08/2020 12:00:00 AM EST Current Smoker completed Curre nt Smoker eCW1 ([facility]) Smoking 11/08/2020 12:00:00 AM EST Current Smoker completed Curre nt Smoker eCW1 ([facility]) Smoking 11/08/2020 12:00:00 AM EST Current Smoker completed Curre nt Smoker eCW1 ([facility]) Smoking 11/08/2020 12:00:00 AM EST Current Smoker completed Curre nt Smoker eCW1 ([facility]) Smoking 11/08/2020 12:00:00 AM EST Current Smoker completed Curre nt Smoker eCW1 ([facility]) Smoking 11/08/2020 12:00:00 AM EST Current Smoker completed Curre nt Smoker eCW1 ([facility]) Smoking 10/02/2020 12:00:00 AM EST Current Smoker completed Curre nt Smoker eCW1 ([facility]) Smoking 10/02/2020 12:00:00 AM EST Current Smoker completed Curre nt Smoker eCW1 ([facility]) Smoking 10/02/2020 12:00:00 AM EST Current Smoker completed Curre nt Smoker eCW1 ([facility]) Vital Signs ID Date Data Source UNK Name Value Range Interpretation Code Description Data Source(s) Body weight 188 [lb_av] 188 [lb_av] eCW1 ([facility] to [facility]) Body weight 85.28 kg 85.28 kg eCW1 ([facility]) Body height 60 [in_i] 60 [in_i] eCW1 ([facility]) Body mass index (BMI) [Ratio] 36.71 kg/m2 36.71 kg/m2 eCW1 ([facility]) Systolic blood pressure 130 mm[Hg] 130 mm[Hg] e CW1 ([facility]) Diastolic blood pressure 85 mm[Hg] 85 mm[Hg] eCW1 ([facility]) Body weight 188 [lb_av] 188 [lb_av] eCW1 ([facility] to [facility]) Body height 60 [in_i] 60 [in_i] eCW1 ([facility]) Body mass index (BMI) [Ratio] 36.71 kg/m2 36.71 kg/m2 eCW1 ([facility]) Heart rate 80 /min 80 /min eCW1 ([facility]) Respiratory rate 20 /min 20 /min eCW1 ([facility]) Body temperature 97 [degF] 97 [degF] eCW1 ([facility]) Systolic blood pressure 128 mm[Hg] 128 mm[Hg] e CW1 ([facility]) Diastolic blood pressure 80 mm[Hg] 80 mm[Hg] eCW1 ([facility]) Body weight 186 [lb_av] 186 [lb_av] eCW1 ([facility] to [facility]) Body height 60 [in_i] 60 [in_i] eCW1 ([facility]) Body mass index (BMI) [Ratio] 36.32 kg/m2 36.32 kg/m2 eCW1 ([facility]) Heart rate 76 /min 76 /min eCW1 ([facility]) Respiratory rate 18 /min 18 /min eCW1 ([facility]) Body temperature 97.0 [degF] 97.0 [degF] eCW1 ( [facility]) Systolic blood pressure 128 mm[Hg] 128 mm[Hg] e CW1 ([facility]) Diastolic blood pressure 78 mm[Hg] 78 mm[Hg] eCW1 ([facility]) Body weight 195 [lb_av] 195 [lb_av] eCW1 ([facility] to [facility]) Body temperature 98.8 [degF] 98.8 [degF] eCW1 ( [facility]) Systolic blood pressure 132 mm[Hg] 132 mm[Hg] e CW1 ([facility]) Respiratory rate 18 /min 18 /min eCW1 ([facility]) Diastolic blood pressure 80 mm[Hg] 80 mm[Hg] eCW1 ([facility]) Body height 60 [in_i] 60 [in_i] eCW1 ([facility]) Body mass index (BMI) [Ratio] 38.08 kg/m2 38.08 kg/m2 eCW1 ([facility]) Heart rate 76 /min 76 /min eCW1 ([facility]) Systolic blood pressure 118 mm[Hg] 118 mm[Hg] M EDENT ([facility], ) Diastolic blood pressure 78 mm[Hg] 78 mm[Hg] MEDENT ([facility], ) Heart rate 93 /min 93 /min MEDENT ([facility], ) Oxygen saturation in Arterial blood by Pulse oximetry 94 % 94 % MEDENT ([facility], ) Body temperature 97.6 [degF] 97.6 [degF] MEDENT ([facility], ) Body height 60 [in_i] 60 [in_i] MEDENT ([facility], ) 5'0" Body weight 187.00 [lb_av] 187.00 [lb_av] MEDEN T ([facility]) Body mass index (BMI) [Ratio] 36.5 kg/m2 36.5 k g/m[facility] Verner body weight 100 [lb_av] 100 [lb_av] [facility] ([facility]) Body weight 84.823 kg 84.823 kg [facility]) Body surface area Derived from formula 1.81 m2 1.81 m2 [facility] ([facility]) Patient Treatment Plan of Care Planned Activity Planned Date Details Description Data Source (s) Baclofen 5 MG Oral Tablet 06/20/2021 12:00:00 AM EDT eCW1 ([facility]) Baclofen 5 MG Oral Tablet 06/20/2021 12:00:00 AM EDT eCW1 ([facility]) Baclofen 5 MG Oral Tablet 06/20/2021 12:00:00 AM EDT eCW1 ([facility]) Baclofen 5 MG Oral Tablet 06/20/2021 12:00:00 AM EDT eCW1 ([facility]) Baclofen 5 MG Oral Tablet 06/20/2021 12:00:00 AM EDT eCW1 ([facility]) Prednisone 20 MG Oral Tablet 03/21/2021 12:00:00 AM EDT eCW1 ([facility]) Acetaminophen 325 MG / Hydrocodone Bitartrate 5 MG Ora l Tablet 03/21/2021 12:00:00 AM EDT eCW1 ([facility]) Prednisone 20 MG Oral Tablet 03/21/2021 12:00:00 AM EDT eCW1 ([facility]) Acetaminophen 325 MG / Hydrocodone Bitartrate 5 MG Ora l Tablet 03/21/2021 12:00:00 AM EDT eCW1 ([facility]) Prednisone 20 MG Oral Tablet 03/21/2021 12:00:00 AM EDT eCW1 ([facility]) Acetaminophen 325 MG / Hydrocodone Bitartrate 5 MG Ora l Tablet 03/21/2021 12:00:00 AM EDT eCW1 ([facility]) Prednisone 20 MG Oral Tablet 03/21/2021 12:00:00 AM EDT eCW1 ([facility]) Acetaminophen 325 MG / Hydrocodone Bitartrate 5 MG Ora l Tablet 03/21/2021 12:00:00 AM EDT eCW1 ([facility]) Prednisone 20 MG Oral Tablet 03/21/2021 12:00:00 AM EDT eCW1 ([facility]) Acetaminophen 325 MG / Hydrocodone Bitartrate 5 MG Ora l Tablet 03/21/2021 12:00:00 AM EDT eCW1 ([facility]) atorvastatin 20 MG Oral Tablet 03/05/2021 12:00:00 AM EDT eCW1 ([facility]) Cyclobenzaprine hydrochloride 10 MG Oral Tablet 03/05/2021 12:00:00 AM EDT eCW1 ([facility]) atorvastatin 20 MG Oral Tablet 03/05/2021 12:00:00 AM EDT eCW1 ([facility]) Cyclobenzaprine hydrochloride 10 MG Oral Tablet 03/05/2021 12:00:00 AM EDT eCW1 ([facility]) atorvastatin 20 MG Oral Tablet 03/05/2021 12:00:00 AM EDT eCW1 ([facility]) Cyclobenzaprine hydrochloride 10 MG Oral Tablet 03/05/2021 12:00:00 AM EDT eCW1 ([facility]) Lisinopril 10 MG Oral Tablet 02/23/2021 12:00:00 AM EDT eCW1 ([facility]) Fluticasone Propionate 50 MCG/ACT 11/30/2020 12:00:00 AM EST eCW1 ([facility]) Fluticasone Propionate 50 MCG/ACT 11/30/2020 12:00:00 AM EST eCW1 ([facility]) Fluticasone Propionate 50 MCG/ACT 11/30/2020 12:00:00 AM EST eCW1 ([facility]) Fluticasone Propionate 50 MCG/ACT 11/30/2020 12:00:00 AM EST eCW1 ([facility]) Fluticasone Propionate 50 MCG/ACT 11/30/2020 12:00:00 AM EST eCW1 ([facility]) Fluticasone Propionate 50 MCG/ACT 11/30/2020 12:00:00 AM EST eCW1 ([facility]) Fluticasone Propionate 50 MCG/ACT 11/30/2020 12:00:00 AM EST eCW1 ([facility])
--- OUTSIDE RECORDS SUMMARY | 2021-09-08 06:09 | CCD ---
Author Author [facility] Organization [facility] Address Unknown Phone Unavailable Care Team Providers Care Corrugator Helper Name Role Phone Viviane Tam MD Unavailable [...] Viviane Tam MD Unavailable Unavailable Jeff, Meseret SERVICE MECHANIC SERVICE MECHANIC Unavailable Unavailable Jeff, A Meseret SERVICE MECHANIC Unavailable Unavailable Jeff, A Meseret SERVICE MECHANIC Unavailable Unavailable Jeff, A Meseret SERVICE MECHANIC Unavailable Unavailable Jeff, A Meseret SERVICE MECHANIC Unavailable Unavailable Jeff, A Meseret SERVICE MECHANIC Unavailable Unavailable Jeff, A Meseret SERVICE MECHANIC Unavailable Unavailable Jeff, A Meseret SERVICE MECHANIC Unavailable Unavailable Jeff, A Meseret SERVICE MECHANIC Unavailable Unavailable Jeff, A Meseret SERVICE MECHANIC Unavailable Unavailable Jeff, A Meseret SERVICE MECHANIC Unavailable Unavailable Jeff, A Meseret SERVICE MECHANIC Unavailable Unavailable Jeff, A Meseret SERVICE MECHANIC Unavailable Unavailable Jeff, A Meseret SERVICE MECHANIC Unavailable Unavailable Jeff, A Meseret SERVICE MECHANIC Unavailable Unavailable Jeff, A Meseret SERVICE MECHANIC Unavailable Unavailable Jeff, A Meseret SERVICE MECHANIC Unavailable Unavailable Jeff, A Meseret SERVICE MECHANIC Unavailable Unavailable Jeff, A Meseret SERVICE MECHANIC Unavailable Unavailable Jeff, A Meseret SERVICE MECHANIC Unavailable Unavailable Jeff, A Meseret SERVICE MECHANIC Unavailable Unavailable Jeff, A Meseret SERVICE MECHANIC Unavailable Unavailable Jeff, A Meseret SERVICE MECHANIC Unavailable Unavailable Jeff, A Meseret SERVICE MECHANIC Unavailable Unavailable Jeff, A Meseret SERVICE MECHANIC Unavailable Unavailable Jeff, A Meseret SERVICE MECHANIC Unavailable Unavailable Jeff, A Meseret SERVICE MECHANIC Unavailable Unavailable Jeff, A Meseret SERVICE MECHANIC Unavailable Unavailable Jeff, A Meseret SERVICE MECHANIC Unavailable Unavailable Jeff, A Meseret SERVICE MECHANIC Unavailable Unavailable Jeff, A Meseret SERVICE MECHANIC Unavailable Unavailable Jeff, A Meseret SERVICE MECHANIC Unavailable Unavailable Re-disclosure Warning The records that [...] is protected by Article 27-F of the [facility] Public Health law. If you continue you may have access to information: Regarding HIV / AIDS; Provided by facilities licensed or operated by the [facility] Office of Mental Health; or Provided by the [facility] Office for People With Developmental Disabilities. If such information is present, then the following [facility] mandated warning applies: This information has [...] law may result in a fine or penitentiary sentence or both. A general authorization for the release of medical or other information is NOT sufficient authorization for further disc losure. Family History Family Member Name Family Member Gender Family Member Status Date o f Status Description Data Source(s) Unknown Unknown Problem [facility] ([facility]) Encounters Encounter Providers Location Date Indications Data Source(s ) Unknown [address] [facility], [place] [facility] [place] [address] 07/23/2021 12:00:00 AM EDT [facility] ([facility]) Telehealth Physchotherapy 30 Minutes with Patient [facility] 07/17/2021 12:00:00 AM EDT [facility] Crisis Intervention [facility] 2021 12:00:00 AM EDT [facility] ([facility] Outpatient [facility] 06/26/2021 12:00:00 AM EDT [facility] ([facility]) [place] [address] [facility] [address] 06/26/2021 12:00:00 AM EDT [facility]CW1 ([facility]) [place] [address] [facility] [address] 06/20/2021 12:00:00 AM EDT eCW1 ([facility]) [place] [address] [facility] [address] 06/20/2021 12:00:00 AM EDT eCW1 ([facility]) [place] [address] [facility] [address] 06/18/2021 12:00:00 AM EDT eCW1 ([facility]) non-billable [facility] 06/13/2021 12:00:00 AM EDT [facility] ([facility]) [place] [address] [facility] [address] 05/25/2021 12:00:00 AM EDT eCW1 ([facility]) Crisis Intervention [facility] 05/21/2021 12:00:00 AM EDT [facility] ([facility]-billable [facility] 05/04/2021 12:00:00 AM EDT [facility] ([facility]) [place] [address] [facility] [address] 04/30/2021 12:00:00 AM EDT eCW1 ([facility]) [place] [address] [facility] [address] 04/18/2021 12:00:00 AM EDT eCW1 ([facility]) [place] [address] [facility] [address] 03/29/2021 12:00:00 AM EDT eCW1 ([facility]) [place] [address] [facility] [address] 03/26/2021 12:00:00 AM EDT eCW1 ([facility]) [place] [address] [facility] [address] 03/23/2021 12:00:00 AM EDT eCW1 ([facility]) [place] [address] [facility] [address] 03/21/2021 12:00:00 AM EDT eCW1 ([facility]) [place] [address] [facility] [address] 03/21/2021 12:00:00 AM EDT eCW1 ([facility]) [place] [address] [facility] [address] 03/21/2021 12:00:00 AM EDT eCW1 ([facility]) [place] [address] [facility] [address] 03/14/2021 12:00:00 AM EDT eCW1 ([facility]) [place]patient [address] [facility] [address] 03/05/2021 12:00:00 AM EDT eCW1 ([facility]) [place] [address] [facility] [address] 03/01/2021 12:00:00 AM EDT eCW1 ([facility]) [place] [address] [facility] [address] 02/23/2021 12:00:00 AM EDT eCW1 ([facility]) [place] [address] [facility] [address] 02/22/2021 12:00:00 AM EDT eCW1 ([facility]) [place] [address] [facility] [address] 02/07/2021 12:00:00 AM EDT eCW1 ([facility]) [place] [address] [facility] [address] 01/18/2021 12:00:00 AM EDT eCW1 ([facility]) [place] [address] [facility] [address] 01/16/2021 12:00:00 AM EDT eCW1 ([facility]) [place] [address] [facility] [address] 01/12/2021 12:00:00 AM EST eCW1 ([facility]) [place] [address] [facility] [address] 01/10/2021 12:00:00 AM EST eCW1 ([facility]) Unknown [address] [facility] [address] 12/14/2020 12:00:00 AM EST eCW1 ([facility]) [place] [address] [facility] [address] 11/30/2020 12:00:00 AM EST eCW1 ([facility]) Unknown [address] [facility] [address] 11/14/2020 12:00:00 AM EST eCW1 ([facility]) [place] [address] [facility] [address] 11/06/2020 12:00:00 AM EST eCW1 ([facility]) Unknown [address] [facility] [address] 10/19/2020 12:00:00 AM EST eCW1 ([facility]) [place]patient [address] [facility] [address] 10/02/2020 12:00:00 AM EST eCW1 ([facility]) Unknown [address] [facility] [address] 09/18/2020 12:00:00 AM EST eCW1 ([facility]) Outpatient Attender: Meseret RAI 08/21/2020 03:3 0:17 PM EDT [facility] Outpatient Attender: Viviane Reid/Gabe/Nahid/Krishna ndamerica 07/31/2020 03:00:00 PM EDT [facility], ) Outpatient Attender: CARIE Aguilar SERVICE MECHANIC FP 07/17/2020 01:09:01 P M EDT [facility] Outpatient Attender: Meseret Aguilar SERVICE MECHANIC FP 07/13/2020 02:4 9:40 PM EDT [facility] Outpatient Attender: Meseret Aguilar SERVICE MECHANIC FP 07/12/2020 11:5 7:01 AM EDT [facility] Outpatient Attender: CARIE Aguilar SERVICE MECHANIC FP 07/12/2020 11:39:01 A M EDT [facility] Outpatient Attender: Meseret Aguilar [facility] FP 07/12/2020 11:3 9:00 AM EDT [facility] Outpatient Attender: CARIE Aguilar SERVICE MECHANIC FP 07/12/2020 10:29:00 A M EDT [facility] Immunizations Vaccine Date Status Description Data Source(s) COVID-19 VACCINE Moderna 06/22/2021 12:00:00 AM EDT completed [facility] Vaccine Series Complete: YESThis Data wa s Submitted to [facility] [employer]. COVID-19 VACCINE Moderna 05/13/2021 12:00:00 AM EDT completed [facility] Vaccine Series Complete: NOThis Data was Submitted to [facility] [employer]. Medications Medication Brand Name Start Date Product Form Dose Route Admi nistrative Instructions Pharmacy Instructions Status Indications Reaction Description Data Source(s) Baclofen 5 MG Oral Tablet Baclofen 5 MG 06/20/2021 12:00:00 AM EDT active Baclofen 5 MG eCW1 ([facility]) Baclofen 5 MG Oral Tablet Baclofen 5 MG 06/20/2021 12:00:00 AM EDT active Baclofen 5 MG eCW1 ([facility]) Baclofen 5 MG Oral Tablet Baclofen 5 MG 06/20/2021 12:00:00 AM EDT active Baclofen 5 MG eCW1 ([facility]) Baclofen 5 MG Oral Tablet Baclofen 5 MG 06/20/2021 12:00:00 AM EDT active Baclofen 5 MG eCW1 ([facility]) Baclofen 5 MG Oral Tablet Baclofen 5 MG 06/20/2021 12:00:00 AM EDT active Baclofen 5 MG eCW1 ([facility]) Prednisone 20 MG Oral Tablet PredniSONE 20 MG PredniSONE 20 MG 03/21/2021 12:00:00 AM EDT 1.0 {tablet} active Pr edniSONE 20 MG eCW1 ([facility]) Prednisone 20 MG Oral Tablet PredniSONE 20 MG PredniSONE 20 MG 03/21/2021 12:00:00 AM EDT 1.0 {tablet} active Pr edniSONE 20 MG eCW1 ([facility]) Acetaminophen 325 MG / Hydrocodone Meghan trate 5 MG Oral Tablet Hydrocodone- Acetaminophen 5-325 MG Hydrocodone-Acetaminophen 5-325 MG 03/21/2021 12:00:00 AM EDT 1.0 {tablet_as_needed} active Hydrocodone-Acetaminophen 5-325 MG eCW1 ([facility]) Acetaminophen 325 MG / Hydrocodone Meghan trate 5 MG Oral Tablet Hydrocodone- Acetaminophen 5-325 MG Hydrocodone-Acetaminophen 5-325 MG 03/21/2021 12:00:00 AM EDT 1.0 {tablet_as_needed} active Hydrocodone-Acetaminophen 5-325 MG eCW1 ([facility]) Acetaminophen 325 MG / Hydrocodone Meghan trate 5 MG Oral Tablet HYDROcodone- Acetaminophen 5-325 MG HYDROcodone-Acetaminophen 5-325 MG 03/21/2021 12:00:00 AM EDT 1.0 {tablet_as_needed} active HYDROcodone-Acetaminophen 5-325 MG eCW1 ([facility]) Prednisone 20 MG Oral Tablet predniSONE 20 MG predniSONE 20 MG 03/21/2021 12:00:00 AM EDT 1.0 {tablet} active pr edniSONE 20 MG eCW1 ([facility]) Prednisone 20 MG Oral Tablet PredniSONE 20 MG PredniSONE 20 MG 03/21/2021 12:00:00 AM EDT 1.0 {tablet} active Pr edniSONE 20 MG eCW1 ([facility]) Acetaminophen 325 MG / Hydrocodone Meghan trate 5 MG Oral Tablet HYDROcodone- Acetaminophen 5-325 MG HYDROcodone-Acetaminophen 5-325 MG 03/21/2021 12:00:00 AM EDT 1.0 {tablet_as_needed} active HYDROcodone-Acetaminophen 5-325 MG eCW1 ([facility]) Prednisone 20 MG Oral Tablet predniSONE 20 MG predniSONE 20 MG 03/21/2021 12:00:00 AM EDT 1.0 {tablet} active pr edniSONE 20 MG eCW1 ([facility]) Acetaminophen 325 MG / Hydrocodone Meghan trate 5 MG Oral Tablet HYDROcodone- Acetaminophen 5-325 MG HYDROcodone-Acetaminophen 5-325 MG 03/21/2021 12:00:00 AM EDT 1.0 {tablet_as_needed} active HYDROcodone-Acetaminophen 5-325 MG eCW1 ([facility]) Acetaminophen 325 MG / Hydrocodone Meghan trate 5 MG Oral Tablet Hydrocodone- Acetaminophen 5-325 MG Hydrocodone-Acetaminophen 5-325 MG 03/21/2021 12:00:00 AM EDT 1.0 {tablet_as_needed} active Hydrocodone-Acetaminophen 5-325 MG eCW1 ([facility]) Prednisone 20 MG Oral Tablet PredniSONE 20 MG PredniSONE 20 MG 03/21/2021 12:00:00 AM EDT 1.0 {tablet} active Pr edniSONE 20 MG eCW1 ([facility]) Acetaminophen 325 MG / Hydrocodone Meghan trate 5 MG Oral Tablet HYDROcodone- Acetaminophen 5-325 MG HYDROcodone-Acetaminophen 5-325 MG 03/21/2021 12:00:00 AM EDT 1.0 {tablet_as_needed} active HYDROcodone-Acetaminophen 5-325 MG eCW1 ([facility]) Acetaminophen 325 MG / Hydrocodone Meghan trate 5 MG Oral Tablet HYDROcodone- Acetaminophen 5-325 MG HYDROcodone-Acetaminophen 5-325 MG 03/21/2021 12:00:00 AM EDT 1.0 {tablet_as_needed} active HYDROcodone-Acetaminophen 5-325 MG eCW1 ([facility]) Acetaminophen 325 MG / Hydrocodone Meghan trate 5 MG Oral Tablet Hydrocodone- Acetaminophen 5-325 MG Hydrocodone-Acetaminophen 5-325 MG 03/21/2021 12:00:00 AM EDT 1.0 {tablet_as_needed} active Hydrocodone-Acetaminophen 5-325 MG eCW1 ([facility]) Acetaminophen 325 MG / Hydrocodone Meghan trate 5 MG Oral Tablet Hydrocodone- Acetaminophen 5-325 MG Hydrocodone-Acetaminophen 5-325 MG 03/21/2021 12:00:00 AM EDT 1.0 {tablet_as_needed} active Hydrocodone-Acetaminophen 5-325 MG eCW1 ([facility]) Acetaminophen 325 MG / Hydrocodone Meghan trate 5 MG Oral Tablet HYDROcodone- Acetaminophen 5-325 MG HYDROcodone-Acetaminophen 5-325 MG 03/21/2021 12:00:00 AM EDT 1.0 {tablet_as_needed} active HYDROcodone-Acetaminophen 5-325 MG eCW1 ([facility]) Acetaminophen 325 MG / Hydrocodone Meghan trate 5 MG Oral Tablet HYDROcodone- Acetaminophen 5-325 MG HYDROcodone-Acetaminophen 5-325 MG 03/21/2021 12:00:00 AM EDT 1.0 {tablet_as_needed} active HYDROcodone-Acetaminophen 5-325 MG eCW1 ([facility]) Acetaminophen 325 MG / Hydrocodone Meghan trate 5 MG Oral Tablet HYDROcodone- Acetaminophen 5-325 MG HYDROcodone-Acetaminophen 5-325 MG 03/21/2021 12:00:00 AM EDT 1.0 {tablet_as_needed} active HYDROcodone-Acetaminophen 5-325 MG eCW1 ([facility]) Prednisone 20 MG Oral Tablet predniSONE 20 MG predniSONE 20 MG 03/21/2021 12:00:00 AM EDT 1.0 {tablet} active pr edniSONE 20 MG eCW1 ([facility]) Acetaminophen 325 MG / Hydrocodone Meghan trate 5 MG Oral Tablet Hydrocodone- Acetaminophen 5-325 MG Hydrocodone-Acetaminophen 5-325 MG 03/21/2021 12:00:00 AM EDT 1.0 {tablet_as_needed} active Hydrocodone-Acetaminophen 5-325 MG eCW1 ([facility]) Acetaminophen 325 MG / Hydrocodone Meghan trate 5 MG Oral Tablet HYDROcodone- Acetaminophen 5-325 MG HYDROcodone-Acetaminophen 5-325 MG 03/21/2021 12:00:00 AM EDT 1.0 {tablet_as_needed} active HYDROcodone-Acetaminophen 5-325 MG eCW1 ([facility]) Prednisone 20 MG Oral Tablet PredniSONE 20 MG PredniSONE 20 MG 03/21/2021 12:00:00 AM EDT 1.0 {tablet} active Pr edniSONE 20 MG eCW1 ([facility]) Acetaminophen 325 MG / Hydrocodone Meghan trate 5 MG Oral Tablet HYDROcodone- Acetaminophen 5-325 MG HYDROcodone-Acetaminophen 5-325 MG 03/21/2021 12:00:00 AM EDT 1.0 {tablet_as_needed} active HYDROcodone-Acetaminophen 5-325 MG eCW1 ([facility]) Prednisone 20 MG Oral Tablet PredniSONE 20 MG PredniSONE 20 MG 03/21/2021 12:00:00 AM EDT 1.0 {tablet} active Pr edniSONE 20 MG eCW1 ([facility]) Prednisone 20 MG Oral Tablet predniSONE 20 MG predniSONE 20 MG 03/21/2021 12:00:00 AM EDT 1.0 {tablet} active pr edniSONE 20 MG eCW1 ([facility]) Prednisone 20 MG Oral Tablet predniSONE 20 MG predniSONE 20 MG 03/21/2021 12:00:00 AM EDT 1.0 {tablet} active pr edniSONE 20 MG eCW1 ([facility]) atorvastatin 20 MG Oral Tablet Atorvastatin Calcium 20 MG Atorvastatin Calcium 20 MG 03/05/2021 12:00:00 AM EDT 1.0 {tablet} activ e Atorvastatin Calcium 20 MG eCW1 ([facility]) atorvastatin 20 MG Oral Tablet Atorvastatin Calcium 20 MG Atorvastatin Calcium 20 MG 03/05/2021 12:00:00 AM EDT 1.0 {tablet} activ e Atorvastatin Calcium 20 MG eCW1 ([facility]) Cyclobenzaprine hydrochloride 10 MG Oral Tablet Cyclob enzaprine HCl 10 MG Cyclobenzaprine HCl 10 MG 03/05/2021 12:00:00 AM EDT 1.0 {tablet} active Cyclobenzaprine HCl 10 MG eCW1 ( [facility]) Cyclobenzaprine hydrochloride 10 MG Oral Tablet Cyclob enzaprine HCl 10 MG Cyclobenzaprine HCl 10 MG 03/05/2021 12:00:00 AM EDT 1.0 {tablet} active Cyclobenzaprine HCl 10 MG eCW1 ( [facility]) atorvastatin 20 MG Oral Tablet Atorvastatin Calcium 20 MG Atorvastatin Calcium 20 MG 03/05/2021 12:00:00 AM EDT 1.0 {tablet} activ e Atorvastatin Calcium 20 MG eCW1 ([facility]) atorvastatin 20 MG Oral Tablet Atorvastatin Calcium 20 MG Atorvastatin Calcium 20 MG 03/05/2021 12:00:00 AM EDT 1.0 {tablet} activ e Atorvastatin Calcium 20 MG eCW1 ([facility]) atorvastatin 20 MG Oral Tablet Atorvastatin Calcium 20 MG Atorvastatin Calcium 20 MG 03/05/2021 12:00:00 AM EDT 1.0 {tablet} activ e Atorvastatin Calcium 20 MG eCW1 ([facility]) atorvastatin 20 MG Oral Tablet Atorvastatin Calcium 20 MG Atorvastatin Calcium 20 MG 03/05/2021 12:00:00 AM EDT 1.0 {tablet} activ e Atorvastatin Calcium 20 MG eCW1 ([facility]) atorvastatin 20 MG Oral Tablet Atorvastatin Calcium 20 MG Atorvastatin Calcium 20 MG 03/05/2021 12:00:00 AM EDT 1.0 {tablet} activ e Atorvastatin Calcium 20 MG eCW1 ([facility]) Cyclobenzaprine hydrochloride 10 MG Oral Tablet Cyclob enzaprine HCl 10 MG Cyclobenzaprine HCl 10 MG 03/05/2021 12:00:00 AM EDT 1.0 {tablet} active Cyclobenzaprine HCl 10 MG eCW1 ( [facility]) atorvastatin 20 MG Oral Tablet Atorvastatin Calcium 20 MG Atorvastatin Calcium 20 MG 03/05/2021 12:00:00 AM EDT 1.0 {tablet} activ e Atorvastatin Calcium 20 MG eCW1 ([facility]) Cyclobenzaprine hydrochloride 10 MG Oral Tablet Cyclob enzaprine HCl 10 MG Cyclobenzaprine HCl 10 MG 03/05/2021 12:00:00 AM EDT 1.0 {tablet} active Cyclobenzaprine HCl 10 MG eCW1 ( [facility]) Cyclobenzaprine hydrochloride 10 MG Oral Tablet Cyclob enzaprine HCl 10 MG Cyclobenzaprine HCl 10 MG 03/05/2021 12:00:00 AM EDT 1.0 {tablet} active Cyclobenzaprine HCl 10 MG eCW1 ( [facility]) Cyclobenzaprine hydrochloride 10 MG Oral Tablet Cyclob enzaprine HCl 10 MG Cyclobenzaprine HCl 10 MG 03/05/2021 12:00:00 AM EDT 1.0 {tablet} active Cyclobenzaprine HCl 10 MG eCW1 ( [facility]) Cyclobenzaprine hydrochloride 10 MG Oral Tablet Cyclob enzaprine HCl 10 MG Cyclobenzaprine HCl 10 MG 03/05/2021 12:00:00 AM EDT 1.0 {tablet} active Cyclobenzaprine HCl 10 MG eCW1 ( [facility]) atorvastatin 20 MG Oral Tablet Atorvastatin Calcium 20 MG Atorvastatin Calcium 20 MG 03/05/2021 12:00:00 AM EDT 1.0 {tablet} activ e Atorvastatin Calcium 20 MG eCW1 ([facility]) Cyclobenzaprine hydrochloride 10 MG Oral Tablet Cyclob enzaprine HCl 10 MG Cyclobenzaprine HCl 10 MG 03/05/2021 12:00:00 AM EDT 1.0 {tablet} active Cyclobenzaprine HCl 10 MG eCW1 ( [facility]) atorvastatin 20 MG Oral Tablet Atorvastatin Calcium 20 MG Atorvastatin Calcium 20 MG 03/05/2021 12:00:00 AM EDT 1.0 {tablet} activ e Atorvastatin Calcium 20 MG eCW1 ([facility]) Cyclobenzaprine hydrochloride 10 MG Oral Tablet Cyclob enzaprine HCl 10 MG Cyclobenzaprine HCl 10 MG 03/05/2021 12:00:00 AM EDT 1.0 {tablet} active Cyclobenzaprine HCl 10 MG eCW1 ( [facility]) atorvastatin 20 MG Oral Tablet Atorvastatin Calcium 20 MG Atorvastatin Calcium 20 MG 03/05/2021 12:00:00 AM EDT 1.0 {tablet} activ e Atorvastatin Calcium 20 MG eCW1 ([facility]) atorvastatin 20 MG Oral Tablet Atorvastatin Calcium 20 MG Atorvastatin Calcium 20 MG 03/05/2021 12:00:00 AM EDT 1.0 {tablet} activ e Atorvastatin Calcium 20 MG eCW1 ([facility]) Cyclobenzaprine hydrochloride 10 MG Oral Tablet Cyclob enzaprine HCl 10 MG Cyclobenzaprine HCl 10 MG 03/05/2021 12:00:00 AM EDT 1.0 {tablet} active Cyclobenzaprine HCl 10 MG eCW1 ( [facility]) atorvastatin 20 MG Oral Tablet Atorvastatin Calcium 20 MG Atorvastatin Calcium 20 MG 03/05/2021 12:00:00 AM EDT 1.0 {tablet} activ e Atorvastatin Calcium 20 MG eCW1 ([facility]) Cyclobenzaprine hydrochloride 10 MG Oral Tablet Cyclob enzaprine HCl 10 MG Cyclobenzaprine HCl 10 MG 03/05/2021 12:00:00 AM EDT 1.0 {tablet} active Cyclobenzaprine HCl 10 MG eCW1 ( [facility]) Cyclobenzaprine hydrochloride 10 MG Oral Tablet Cyclob enzaprine HCl 10 MG Cyclobenzaprine HCl 10 MG 03/05/2021 12:00:00 AM EDT 1.0 {tablet} active Cyclobenzaprine HCl 10 MG eCW1 ( [facility]) Cyclobenzaprine hydrochloride 10 MG Oral Tablet Cyclob enzaprine HCl 10 MG Cyclobenzaprine HCl 10 MG 03/05/2021 12:00:00 AM EDT 1.0 {tablet} active Cyclobenzaprine HCl 10 MG eCW1 ( [facility]) Cyclobenzaprine hydrochloride 10 MG Oral Tablet Cyclob enzaprine HCl 10 MG Cyclobenzaprine HCl 10 MG 03/05/2021 12:00:00 AM EDT 1.0 {tablet} active Cyclobenzaprine HCl 10 MG eCW1 ( [facility]) atorvastatin 20 MG Oral Tablet Atorvastatin Calcium 20 MG Atorvastatin Calcium 20 MG 03/05/2021 12:00:00 AM EDT 1.0 {tablet} activ e Atorvastatin Calcium 20 MG eCW1 ([facility]) Lisinopril 10 MG Oral Tablet Lisinopril 10 MG 02/23/2021 12:00:00 AM E DT active Lisinopril 10 MG eCW1 ([facility]) Fluticasone Propionate 50 MCG/ACT Fluticasone Propionate 50 MCG/ACT 11/30/2020 12:00:00 AM EST 1.0 {spray_in_each_nostril} acti ve Fluticasone Propionate 50 MCG/ACT eCW1 ([facility]) Fluticasone Propionate 50 MCG/ACT Fluticasone Propionate 50 MCG/ACT 11/30/2020 12:00:00 AM EST 1.0 {spray_in_each_nostril} acti ve Fluticasone Propionate 50 MCG/ACT eCW1 ([facility]) Fluticasone Propionate 50 MCG/ACT Fluticasone Propionate 50 MCG/ACT 11/30/2020 12:00:00 AM EST 1.0 {spray_in_each_nostril} acti ve Fluticasone Propionate 50 MCG/ACT eCW1 ([facility]) Fluticasone Propionate 50 MCG/ACT Fluticasone Propionate 50 MCG/ACT 11/30/2020 12:00:00 AM EST 1.0 {spray_in_each_nostril} acti ve Fluticasone Propionate 50 MCG/ACT eCW1 ([facility]) Fluticasone Propionate 50 MCG/ACT Fluticasone Propionate 50 MCG/ACT 11/30/2020 12:00:00 AM EST 1.0 {spray_in_each_nostril} acti ve Fluticasone Propionate 50 MCG/ACT eCW1 ([facility]) Fluticasone Propionate 50 MCG/ACT Fluticasone Propionate 50 MCG/ACT 11/30/2020 12:00:00 AM EST 1.0 {spray_in_each_nostril} acti ve Fluticasone Propionate 50 MCG/ACT eCW1 ([facility]) Fluticasone Propionate 50 MCG/ACT Fluticasone Propionate 50 MCG/ACT 11/30/2020 12:00:00 AM EST 1.0 {spray_in_each_nostril} acti ve Fluticasone Propionate 50 MCG/ACT eCW1 ([facility]) Fluticasone Propionate 50 MCG/ACT Fluticasone Propionate 50 MCG/ACT 11/30/2020 12:00:00 AM EST 1.0 {spray_in_each_nostril} acti ve Fluticasone Propionate 50 MCG/ACT eCW1 ([facility]) Fluticasone Propionate 50 MCG/ACT Fluticasone Propionate 50 MCG/ACT 11/30/2020 12:00:00 AM EST 1.0 {spray_in_each_nostril} acti ve Fluticasone Propionate 50 MCG/ACT eCW1 ([facility]) Fluticasone Propionate 50 MCG/ACT Fluticasone Propionate 50 MCG/ACT 11/30/2020 12:00:00 AM EST 1.0 {spray_in_each_nostril} acti ve Fluticasone Propionate 50 MCG/ACT eCW1 ([facility]) Fluticasone Propionate 50 MCG/ACT Fluticasone Propionate 50 MCG/ACT 11/30/2020 12:00:00 AM EST 1.0 {spray_in_each_nostril} acti ve Fluticasone Propionate 50 MCG/ACT eCW1 ([facility]) Fluticasone Propionate 50 MCG/ACT Fluticasone Propionate 50 MCG/ACT 11/30/2020 12:00:00 AM EST 1.0 {spray_in_each_nostril} acti ve Fluticasone Propionate 50 MCG/ACT eCW1 ([facility]) Fluticasone Propionate 50 MCG/ACT Fluticasone Propionate 50 MCG/ACT 11/30/2020 12:00:00 AM EST 1.0 {spray_in_each_nostril} acti ve Fluticasone Propionate 50 MCG/ACT eCW1 ([facility]) Fluticasone Propionate 50 MCG/ACT Fluticasone Propionate 50 MCG/ACT 11/30/2020 12:00:00 AM EST 1.0 {spray_in_each_nostril} acti ve Fluticasone Propionate 50 MCG/ACT eCW1 ([facility]) Fluticasone Propionate 50 MCG/ACT Fluticasone Propionate 50 MCG/ACT 11/30/2020 12:00:00 AM EST 1.0 {spray_in_each_nostril} acti ve Fluticasone Propionate 50 MCG/ACT eCW1 ([facility]) Fluticasone Propionate 50 MCG/ACT Fluticasone Propionate 50 MCG/ACT 11/30/2020 12:00:00 AM EST 1.0 {spray_in_each_nostril} acti ve Fluticasone Propionate 50 MCG/ACT eCW1 ([facility]) Fluticasone Propionate 50 MCG/ACT Fluticasone Propionate 50 MCG/ACT 11/30/2020 12:00:00 AM EST 1.0 {spray_in_each_nostril} acti ve Fluticasone Propionate 50 MCG/ACT eCW1 ([facility]) Fluticasone Propionate 50 MCG/ACT Fluticasone Propionate 50 MCG/ACT 11/30/2020 12:00:00 AM EST 1.0 {spray_in_each_nostril} acti ve Fluticasone Propionate 50 MCG/ACT eCW1 ([facility]) Fluticasone Propionate 50 MCG/ACT Fluticasone Propionate 50 MCG/ACT 11/30/2020 12:00:00 AM EST 1.0 {spray_in_each_nostril} acti ve Fluticasone Propionate 50 MCG/ACT eCW1 ([facility]) Fluticasone Propionate 50 MCG/ACT Fluticasone Propionate 50 MCG/ACT 11/30/2020 12:00:00 AM EST 1.0 {spray_in_each_nostril} acti ve Fluticasone Propionate 50 MCG/ACT eCW1 ([facility]) Fluticasone Propionate 50 MCG/ACT Fluticasone Propionate 50 MCG/ACT 11/30/2020 12:00:00 AM EST 1.0 {spray_in_each_nostril} acti ve Fluticasone Propionate 50 MCG/ACT eCW1 ([facility]) Fluticasone Propionate 50 MCG/ACT Fluticasone Propionate 50 MCG/ACT 11/30/2020 12:00:00 AM EST 1.0 {spray_in_each_nostril} acti ve Fluticasone Propionate 50 MCG/ACT eCW1 ([facility]) Fluticasone Propionate 50 MCG/ACT Fluticasone Propionate 50 MCG/ACT 11/30/2020 12:00:00 AM EST 1.0 {spray_in_each_nostril} acti ve Fluticasone Propionate 50 MCG/ACT eCW1 ([facility]) Fluticasone Propionate 50 MCG/ACT Fluticasone Propionate 50 MCG/ACT 11/30/2020 12:00:00 AM EST 1.0 {spray_in_each_nostril} acti ve Fluticasone Propionate 50 MCG/ACT eCW1 ([facility]) Fluticasone Propionate 50 MCG/ACT Fluticasone Propionate 50 MCG/ACT 11/30/2020 12:00:00 AM EST 1.0 {spray_in_each_nostril} acti ve Fluticasone Propionate 50 MCG/ACT eCW1 ([facility]) Fluticasone Propionate 50 MCG/ACT Fluticasone Propionate 50 MCG/ACT 11/30/2020 12:00:00 AM EST 1.0 {spray_in_each_nostril} acti ve Fluticasone Propionate 50 MCG/ACT eCW1 ([facility]) montelukast 10 MG Oral Tablet [Singulair] Singulair 2019 12:00:00 AM EDT ORAL active [facility] ( [facility], ) Pro Comfort Inhaler Spacer Chamber Adult 07/31/2020 12:00:00 AM EDT active [facility] ([facility], ) Insurance Providers Payer name Policy type / Coverage type Policy ID Covered constitution party ID Covered constitution party's relationship to woods Policy [place] Plan Information MEDICAID [id number] SP [id number] MEDICAID [id number] SP [id number] Medicaid P [id number] S [id number] Managed Care - Community Plan [facility] P [id number] S [id number] Medicaid S [id number] S [id number] Managed Care - Community Plan [facility] P [id number] S [id number] UN COMMUNITY PLAN MCDO [id number] SP [id number] Managed Care - Community Plan [facility] P [id number] S [id number] UNHC COMMUNITY PLAN MCDHMO [id number] SP [id number] UNHC COMMUNITY PLAN MCDHMO [id number] SP [id number] UNHC COMMUNITY PLAN MCDHMO [id number] SP [id number] [facility] I [id number] Self [id number] [facility] I [id number] Self [id number] Managed Care [place] P [id number] S [id number] [place] [id number] SP [id number] Medicaid P [id number] S [id number] [place] [id number] SP [id number] MEDICAID [id number] SP [id number] Medicaid S [id number] S [id number] Medicaid S [id number] S [id number] JOSE LUIS I [id number] Self [id number] JOSE LUIS I [id number] Self [id number] MEDICAID M [id number] Self [id number] JOSE LUIS MEDICARE [id number] SP [id number] ANSI-Medicaid [id number] ANSI-Medicaid [id number] ANSI-Medicaid [id number] ANSI-Medicaid [id number] ANSI-Medicaid [id number] ANSI-Medicaid [id number] ANSI-Medicaid [id number] ANSI-Medicaid [id number] ANSI-Medicaid [id number] ANSI-Medicaid [id number] ANSI-Medicaid [id number] ANSI-Medicaid [id number] ANSI-Medicaid [id number] ANSI-Medicaid [id number] ANSI-Medicaid [id number] ANSI-Medicaid [id number] ANSI-Medicaid [id number] ANSI-Medicaid [id number] ANSI-Medicaid [id number] ANSI-Medicaid [id number] ANSI-Medicaid [id number] ANSI-Medicaid [id number] ANSI-Medicaid [id number] ANSI-Medicaid [id number] ANSI-Medicaid [id number] ANSI-Medicaid [id number] ANSI-Medicaid [id number] ANSI-Medicaid [id number] ANSI-Medicaid [id number] ANSI-Medicaid [id number] ANSI-Medicaid [id number] ANSI-Medicaid [id number] ANSI-Medicaid [id number] ANSI-Medicaid [id number] ANSI-Medicaid [id number] ANSI-Medicaid [id number] ANSI-Medicaid [id number] ANSI-Medicaid [id number] MEDICAID [id number] SP [id number] SELF PAY ONLY [id number] SP [id number] UN COMMUNITY PLAN [id number] SP [id number] Medicaid [place] Medicaid [id number] Self [id number] JOSE LUIS [id number] SP [id number] 500 [place] O [id number] S [id number] [facility]) O [id number] S [id number] UNHC COMMUNITY PLAN MCDO [id number] SP [id number] UNHC COMMUNITY PLAN MCDO [id number] SP [id number] MEDICAID [id number] SP [id number] UNHC COMMUNITY PLAN MCDHMO [id number] SP [id number] MEDICAID [id number] SP [id number] MEDICAID [id number] SP [id number] MEDICAID [id number] SP [id number] SELF PAY UNAVAILABLE UNAVAILA BLE [facility] HEA [id number] S [id number] [facility] UNAVAILABLE [id number] S UNAVAILABLE [facility] Commercial [id number] Self [id number] [facility] Commercial [id number] Self [id number] [facility] Commercial [id number] Self MEDICARE [id number] SP [id number] [facility]) O [id number] S [id number] Medicaid Dental S UNAVAILABLE S [place] [id number] SP [id number] JOSE LUIS [id number] SP [id number] [place] [id number] SP [id number] JOSE LUIS [id number] SP [id number] [place] O [id number] S [id number] MEDICAID M [id number] S [id number] MEDICAID [id number] SP [id number] MEDICAID [id number] SP [id number] 500 ANSI-Medicaid [id number] ANSI-Medicaid [id number] Managed Care Jose Luis P [id number] S [id number] Medicaid [facility] Part B [id number] Self [id number] [facility] Commercial [id number] Self [id number] JOSE LUIS MEDICARE [id number] SP [id number] ANSI-Medicaid [id number] ANSI-Medicaid [id number] Medicaid [place] Medicaid [id number] Self [id number] ANSI-Medicaid [id number] ANSI-Medicaid [id number] ANSI-Medicaid [id number] ANSI-Medicaid [id number] [facility]-Medicaid [id number] [facility]-Medicaid [id number] [facility]-Medicaid [id number] Problems, Conditions, and Diagnoses Code Display Name Description Problem Type Effective Dates Data Source(s) E78.2 [id number] Mixed hyperlipidemia Problem 03/05/2021 12:0 0:00 AM EDT eCW1 ([facility]) J45.40 [id number] Moderate persistent asthma, uncomplicated Problem 10/02/2020 12:00:00 AM EST eCW1 ([facility]) Surgeries/Procedures Procedure Description Date Indications Data Source(s) Individual psychotherapy (regime/therapy) 07/17/2021 1 2:00:00 AM EDT [facility]) Evaluation AND/OR management - established patient (procedur e) 06/26/2021 12:00:00 AM EDT [facility] ([facility]) Individual psychotherapy (regime/therapy) 06/26/2021 1 2:00:00 AM EDT [facility] ([facility]) Individual psychotherapy (regime/therapy) 06/26/2021 1 2:00:00 AM EDT [facility]) Evaluation AND/OR management - established patient (procedur e) 06/26/2021 12:00:00 AM EDT [facility] ([facility]) Individual psychotherapy (regime/therapy) 06/26/2021 1 2:00:00 AM EDT [facility]) Individual psychotherapy (regime/therapy) 06/26/2021 1 2:00:00 AM EDT [facility] ([facility]) Evaluation AND/OR management - established patient (procedur e) 06/26/2021 12:00:00 AM EDT [facility] ([facility]) Individual psychotherapy (regime/therapy) 06/26/2021 1 2:00:00 AM EDT [facility] ([facility]) Individual psychotherapy (regime/therapy) 06/26/2021 1 2:00:00 AM [facility]) Individual psychotherapy (regime/therapy) 06/12/2021 1 2:00:00 AM EDT [facility] ([facility]) Individual psychotherapy (regime/therapy) 06/12/2021 1 2:00:00 AM EDT [facility] ([facility]) Individual psychotherapy (regime/therapy) 06/12/2021 1 2:00:00 AM EDT [facility] ([facility]) Individual psychotherapy (regime/therapy) 06/12/2021 1 2:00:00 AM EDT [facility] ([facility]) Individual psychotherapy (regime/therapy) 06/12/2021 1 2:00:00 AM EDT [facility]) Individual psychotherapy (regime/therapy) 06/12/2021 1 2:00:00 AM EDT [facility]) Individual psychotherapy (regime/therapy) 06/12/2021 1 2:00:00 AM EDT [facility]) Individual psychotherapy (regime/therapy) 06/12/2021 1 2:00:00 AM EDT [facility]) Individual psychotherapy (regime/therapy) 05/30/2021 1 2:00:00 AM EDT [facility] ([facility]) Individual psychotherapy (regime/therapy) 05/30/2021 1 2:00:00 AM EDT [facility] ([facility]) Individual psychotherapy (regime/therapy) 05/30/2021 1 2:00:00 AM EDT [facility] ([facility]) Individual psychotherapy (regime/therapy) 05/30/2021 1 2:00:00 AM EDT [facility] ([facility]) Individual psychotherapy (regime/therapy) 05/30/2021 1 2:00:00 AM EDT [facility]) Individual psychotherapy (regime/therapy) 05/30/2021 1 2:00:00 AM EDT [facility] ([facility]) Individual psychotherapy (regime/therapy) 05/30/2021 1 2:00:00 AM EDT [facility] ([facility]) Individual psychotherapy (regime/therapy) 05/30/2021 1 2:00:00 AM EDT [facility] ([facility]) Evaluation AND/OR management - established patient (procedur e) 05/14/2021 12:00:00 AM EDT [facility] ([facility]) Evaluation AND/OR management - established patient (procedur e) 05/14/2021 12:00:00 AM EDT [facility] ([facility]) Evaluation AND/OR management - established patient (procedur e) 05/14/2021 12:00:00 AM EDT [facility] ([facility]) Evaluation AND/OR management - established patient (procedur e) 05/14/2021 12:00:00 AM EDT [facility] ([facility]) Evaluation AND/OR management - established patient (procedur e) 05/14/2021 12:00:00 AM EDT [facility] ([facility]) Evaluation AND/OR management - established patient (procedur e) 02/14/2021 12:00:00 AM EDT [facility]) Evaluation AND/OR management - established patient (procedur e) 02/14/2021 12:00:00 AM EDT [facility] ([facility]) Evaluation AND/OR management - established patient (procedur e) 02/14/2021 12:00:00 AM EDT [facility] ([facility]) Evaluation AND/OR management - established patient (procedur e) 02/14/2021 12:00:00 AM EDT [facility] ([facility]) Evaluation AND/OR [...] (regime/therapy) 01/03/2021 1 2:00:00 AM EST [facility] ([facility]) Individual psychotherapy (regime/therapy) 01/03/2021 1 2:00:00 AM EST [facility] ([facility]) Education about risk reduction technique (procedure) 12/25/2020 12:00:00 AM EST [facility] ([facility]) Education about risk reduction technique (procedure) 12/25/2020 12:00:00 AM EST [facility] ([facility]) Education about risk reduction technique (procedure) 12/25/2020 12:00:00 AM EST [facility] ([facility]) Education about risk reduction technique (procedure) 12/25/2020 12:00:00 AM EST [facility] ([facility]) Education about risk reduction technique (procedure) 12/25/2020 12:00:00 AM EST [facility] ([facility]) Education about risk reduction technique (procedure) 12/25/2020 12:00:00 AM EST [facility] ([facility]) Individual psychotherapy [...] (regime/therapy) 12/20/2020 1 2:00:00 AM EST [facility] ([facility]) Individual psychotherapy (regime/therapy) 12/20/2020 1 2:00:00 AM EST [facility] ([facility]) Individual psychotherapy (regime/therapy) 12/20/2020 1 2:00:00 AM EST [facility] ([facility]) Individual psychotherapy (regime/therapy) 12/20/2020 1 2:00:00 AM EST [facility] ([facility]) Individual psychotherapy (regime/therapy) 12/20/2020 1 2:00:00 AM EST [facility] ([facility]) Individual psychotherapy (regime/therapy) 12/20/2020 1 2:00:00 AM EST [facility] ([facility]) Individual psychotherapy (regime/therapy) 12/20/2020 1 2:00:00 AM EST [facility] ([facility]) Individual psychotherapy (regime/therapy) 12/20/2020 1 2:00:00 AM EST [facility] ([facility]) Individual psychotherapy (regime/therapy) 12/13/2020 1 2:00:00 AM EST [facility] ([facility]) Individual psychotherapy (regime/therapy) 12/13/2020 1 2:00:00 AM EST [facility] ([facility]) Individual psychotherapy (regime/therapy) 12/13/2020 1 2:00:00 AM EST [facility] ([facility]) Individual psychotherapy (regime/therapy) 12/13/2020 1 2:00:00 AM EST [facility] ([facility]) Individual psychotherapy (regime/therapy) 12/13/2020 1 [...] (regime/therapy) 12/13/2020 1 2:00:00 AM EST [facility] ([facility]) Individual psychotherapy (regime/therapy) 12/13/2020 1 2:00:00 AM EST [facility] ([facility]) Individual psychotherapy (regime/therapy) 12/13/2020 1 2:00:00 AM EST [facility] ([facility]) Individual psychotherapy (regime/therapy) 12/13/2020 1 2:00:00 AM EST [facility] ([facility]) Individual psychotherapy (regime/therapy) 12/06/2020 1 2:00:00 AM EST [facility] ([facility]) Individual psychotherapy (regime/therapy) 12/06/2020 1 2:00:00 AM EST [facility] ([facility]) Individual psychotherapy (regime/therapy) 12/06/2020 1 2:00:00 AM EST [facility] ([facility]) Individual psychotherapy (regime/therapy) 12/06/2020 1 2:00:00 AM EST [facility] ([facility]) Individual psychotherapy (regime/therapy) 12/06/2020 1 2:00:00 AM EST [facility] ([facility]) Individual psychotherapy (regime/therapy) 12/06/2020 1 2:00:00 AM EST [facility] ([facility]) Individual psychotherapy (regime/therapy) 12/06/2020 1 2:00:00 AM EST [facility] ([facility]) Individual psychotherapy (regime/therapy) 12/06/2020 1 2:00:00 AM EST [facility] ([facility]) Individual psychotherapy (regime/therapy) 12/06/2020 1 2:00:00 AM EST [facility] ([facility]) Individual psychotherapy (regime/therapy) 12/06/2020 1 2:00:00 AM EST [facility] ([facility]) Individual psychotherapy (regime/therapy) 12/06/2020 1 2:00:00 AM EST [facility] ([facility]) Individual psychotherapy (regime/therapy) 12/06/2020 1 2:00:00 AM EST [facility] ([facility]) Individual psychotherapy (regime/therapy) 11/22/2020 1 2:00:00 AM EST [facility] ([facility]) Individual psychotherapy (regime/therapy) 11/22/2020 1 2:00:00 AM EST [facility] ([facility]) Individual psychotherapy (regime/therapy) 11/22/2020 1 2:00:00 AM EST [facility] ([facility]) Individual psychotherapy (regime/therapy) 11/22/2020 1 2:00:00 AM EST [facility] ([facility]) Individual psychotherapy (regime/therapy) 11/22/2020 1 2:00:00 AM EST [facility] ([facility]) Individual psychotherapy (regime/therapy) 11/22/2020 1 2:00:00 AM EST [facility] ([facility]) Individual psychotherapy (regime/therapy) 11/15/2020 1 2:00:00 AM EST [facility] ([facility]) Individual psychotherapy (regime/therapy) 11/15/2020 1 2:00:00 AM EST [facility] ([facility]) Individual psychotherapy (regime/therapy) 11/15/2020 1 2:00:00 AM EST [facility] ([facility]) Individual psychotherapy (regime/therapy) 11/15/2020 1 2:00:00 AM EST [facility] ([facility]) Individual psychotherapy (regime/therapy) 11/15/2020 1 2:00:00 AM EST [facility] ([facility]) Individual psychotherapy (regime/therapy) 11/15/2020 1 2:00:00 AM EST [employer] ([facility]) Individual psychotherapy (regime/therapy) 11/08/2020 1 2:00:00 AM EST [employer] ([facility]) Individual psychotherapy (regime/therapy) 11/08/2020 1 2:00:00 AM EST [employer] ([facility]) Individual psychotherapy (regime/therapy) 11/08/2020 1 2:00:00 AM EST [employer] ([facility]) Individual psychotherapy (regime/therapy) 11/08/2020 1 2:00:00 AM EST [employer] ([facility]) Individual psychotherapy (regime/therapy) 11/08/2020 1 2:00:00 AM EST [employer] ([facility]) Individual psychotherapy (regime/therapy) 11/08/2020 1 2:00:00 AM EST [employer] ([facility]) Individual psychotherapy (regime/therapy) 11/08/2020 1 2:00:00 AM EST [employer] ([facility]) Individual psychotherapy (regime/therapy) 11/08/2020 1 2:00:00 AM EST [employer] ([facility]) Individual psychotherapy (regime/therapy) 11/08/2020 1 2:00:00 AM EST [employer] ([facility]) Individual psychotherapy (regime/therapy) 11/08/2020 1 2:00:00 AM EST [employer] ([facility]) Individual psychotherapy (regime/therapy) 11/08/2020 1 2:00:00 AM EST [employer] ([facility]) Individual psychotherapy (regime/therapy) 11/08/2020 1 2:00:00 AM EST [employer] ([facility]) Individual psychotherapy (regime/therapy) 10/18/2020 1 2:00:00 AM EST [employer] ([facility]) Individual psychotherapy (regime/therapy) 10/18/2020 1 2:00:00 AM EST [employer] ([facility]) Individual psychotherapy (regime/therapy) 10/18/2020 1 2:00:00 AM EST [employer] ([facility]) Individual psychotherapy (regime/therapy) 10/18/2020 1 2:00:00 AM EST [employer] ([facility]) Individual psychotherapy (regime/therapy) 10/18/2020 1 2:00:00 AM EST [employer] ([facility]) Individual psychotherapy (regime/therapy) 10/18/2020 1 2:00:00 AM EST [employer] ([facility]) Individual psychotherapy (regime/therapy) 10/18/2020 1 2:00:00 AM EST [employer] ([facility]) Individual psychotherapy (regime/therapy) 10/18/2020 1 2:00:00 AM EST [employer] ([facility]) Individual psychotherapy (regime/therapy) 10/18/2020 1 2:00:00 AM EST [employer] ([facility]) Individual psychotherapy (regime/therapy) 10/18/2020 1 2:00:00 AM [...] (procedur e) 10/16/2020 12:00:00 AM EST [employer] ([facility]) Evaluation AND/OR management - established patient (procedur e) 10/16/2020 12:00:00 AM EST [employer] ([facility]) Evaluation AND/OR [...] psychotherapy (regime/therapy) 08/30/2020 1 2:00:00 AM [facility]) Individual psychotherapy (regime/therapy) 08/30/2020 1 2:00:00 AM EDT [facility]) Individual psychotherapy (regime/therapy) 08/30/2020 1 2:00:00 [facility]) Individual psychotherapy (regime/therapy) 08/30/2020 1 2:00:00 AM EDT [facility]) Individual psychotherapy (regime/therapy) 08/30/2020 1 2:00:00 AM EDT [facility]) Individual psychotherapy (regime/therapy) 08/30/2020 1 2:00:00 AM EDT [facility]) Individual psychotherapy (regime/therapy) 08/30/2020 1 2:00:00 AM [facility]) Individual psychotherapy (regime/therapy) 08/30/2020 1 2:00:00 AM [facility]) Individual psychotherapy (regime/therapy) 08/30/2020 1 2:00:00 AM EDT [facility]) Individual psychotherapy (regime/therapy) 08/30/2020 1 2:00:00 AM EDT [facility]) Individual psychotherapy (regime/therapy) 08/30/2020 1 2:00:00 AM [facility]) Individual psychotherapy (regime/therapy) 08/16/2020 1 2:00:00 AM EDT [facility]) Individual psychotherapy (regime/therapy) 08/16/2020 1 2:00:00 AM EDT [facility]) Individual psychotherapy (regime/therapy) 08/16/2020 1 2:00:00 AM EDT [facility]) Individual psychotherapy (regime/therapy) 08/16/2020 1 2:00:00 AM EDT [facility]) Individual psychotherapy (regime/therapy) 08/16/2020 1 2:00:00 AM [facility] ([facility]) Individual psychotherapy (regime/therapy) 08/16/2020 1 2:00:00 AM EDT [facility] ([facility]) Individual psychotherapy (regime/therapy) 08/16/2020 1 2:00:00 AM EDT [facility] ([facility]) Individual psychotherapy (regime/therapy) 08/16/2020 1 2:00:00 AM EDT [facility] ([facility]) Individual psychotherapy (regime/therapy) 08/16/2020 1 2:00:00 AM EDT [facility] ([facility]) Individual psychotherapy (regime/therapy) 08/16/2020 1 2:00:00 AM EDT [facility] ([facility]) Individual psychotherapy (regime/therapy) 08/16/2020 1 2:00:00 AM EDT [facility] ([facility]) Individual psychotherapy (regime/therapy) 08/16/2020 1 2:00:00 AM EDT [facility] ([facility]) Spirometry 07/31/2020 12:00:00 AM EDT Italia MELENDEZ ([facility], ) Evaluation AND/OR management - established patient (procedur e) 07/12/2020 12:00:00 AM EDT [facility] ([facility]) Evaluation AND/OR management - established patient (procedur e) 07/12/2020 12:00:00 AM EDT [facility] ([facility]) Evaluation AND/OR management - established patient (procedur e) 07/12/2020 12:00:00 AM EDT [facility] ([facility]) Evaluation AND/OR management - established patient (procedur e) 07/12/2020 12:00:00 AM EDT [facility] ([facility]) Evaluation AND/OR management - established patient (procedur e) 07/12/2020 12:00:00 AM EDT [facility] ([facility]) Evaluation AND/OR management - established patient (procedur e) 07/12/2020 12:00:00 AM EDT [facility] ([facility]) Results ID Date Data Source [id number] 07/23/2021 10:03:00 AM EDT [facility] Name Value Range Interpretation Code Description Data Jody rce(s) Supporting Document(s) SARS coronavirus 2 RNA [Presence] in Res piratory specimen by TATIANA with probe detection NEGATIVE [facility] This lab was ordered by [facility] a nd reported by [facility]. ID Date Data Source [id number] 05/12/2021 12:00:00 AM EDT [facility] Name Value Range Interpretation Code Description Data Jody rce(s) Supporting Document(s) SARS-CoV2 Rapid Antigen Negative [facility] This lab was ordered by [facility] and reported by [facility]. ID Date Data Source RENAL PROFILE 03/21/2021 12:00:00 AM EDT eCW1 ([facility]) Name Value Range Interpretation Code Description Data Jody rce(s) Supporting Document(s) 104 70-100 GLUCOSE, FASTING eCW1 ([facility]) 11 7-18 BLOOD UREA NITROGEN eCW1 ([facility]) 0.58 0.55-1.30 CREATININE FOR GFR eCW1 (Critical access hospital) > 60.0 >51 GLOMERULAR FILTRATION RATE eCW 1 ([facility]) 138 136-145 SODIUM LEVEL eCW1 ([facility]) 103 98-107 CHLORIDE LEVEL eCW1 ([facility]) 4.3 3.5-5.1 POTASSIUM SERUM eCW1 ([facility]) 9.1 8.5-10.1 CALCIUM LEVEL eCW1 ([facility]) 28 21-32 CARBON DIOXIDE LEVEL eCW1 ([facility]) 4.0 2.5-4.9 PHOSPHORUS LEVEL eCW1 ([facility]) 3.7 3.2-5.2 ALBUMIN eCW1 ([facility]) ID Date Data Source ERYTHROCYTE SEDIMENTATION RATE 03/21/2021 12:00:00 AM EDT eC W1 ([facility]) Name Value Range Interpretation Code Description Data Jody rce(s) Supporting Document(s) 34 0-30 ERYTHROCYTE SEDIMENTATION RATE eCW1 ([facility]) ID Date Data Source C REACTIVE PROTEIN QUANTITATIV (At [facility]) 03/21/2021 12:00 :00 AM EDT eCW1 ([facility]) Name Value Range Interpretation Code Description Data Jody rce(s) Supporting Document(s) 0.30 0.00-0.30 C REACTIVE PROTEIN QUANTI TATIV eCW1 ([facility]) ID Date Data Source NT-PRO BNP 03/21/2021 12:00:00 AM EDT eCW1 ([facility]) Name Value Range Interpretation Code Description Data Jody rce(s) Supporting Document(s) 113 <125 NT-PRO BNP eCW1 ([facility]) ID Date Data Source [id number] 11/22/2020 12:00:00 AM EST [facility] Name Value Range Interpretation Code Description Data Jody rce(s) Supporting Document(s) SARS-CoV2 Rapid Antigen Negative [facility] This lab was ordered by [facility] and reported by [facility]. ID Date Data Source Comprehensive Metabolic Profile (CMP) 10/02/2020 12:00:00 AM EST eCW1 ([facility]) Name Value Range Interpretation Code Description Data Jody rce(s) Supporting Document(s) 16 7-18 BLOOD UREA NITROGEN eCW1 ([facility]) 101 70-100 GLUCOSE, FASTING eCW1 ([facility]) 4.0 3.5-5.1 POTASSIUM SERUM eCW1 ([facility]) > 60.0 >51 GLOMERULAR FILTRATION RATE eCW 1 ([facility]) 139 136-145 SODIUM LEVEL eCW1 ([facility]) 0.66 0.55-1.30 CREATININE FOR GFR eCW1 (Critical access hospital) 105 98-107 CHLORIDE LEVEL eCW1 ([facility]) 8 7-37 AST/SGOT eCW1 ([facility]) 29 21-32 CARBON DIOXIDE LEVEL eCW1 ([facility]) 9.3 8.5-10.1 CALCIUM LEVEL eCW1 ([facility]) 3.7 3.2-5.2 ALBUMIN eCW1 ([facility]) 15 12-78 ALT/SGPT eCW1 ([facility]) 7.4 6.4-8.2 TOTAL PROTEIN eCW1 ([facility]) 0.2 0.2-1.0 BILIRUBIN,TOTAL eCW1 ([facility]) 96 45-117 ALKALINE PHOSPHATASE eCW1 ([facility]) 1.0 1.2-2.2 ALBUMIN/GLOBULIN RATIO eCW1 (Replaced by [facility]) ID Date Data Source [id number] 07/31/2020 02:45:00 PM EDT [facility] ([facility], ) Name Value Range Interpretation Code Description Data Jody rce(s) Supporting Document(s) PDFReport Laboratory test result [facility] ([facility], ) FVC-Pred 3.00 L [facility] ([facility]) FVC-Pre 2.90 L [facility] ([facility]) FVC-%Pred-Pre 96 L [facility] ([facility]) FVC-LLN 2.39 L [facility] ([facility]) Fev1-Pred 2.37 L [facility] ([facility]) Fev1-Pre 2.22 L [facility] ([facility]) Fev1-%Pred-Pre 93 L [facility] ([facility]) Fev6-Pred 2.92 L [facility] ([facility]) Fev1-LLN 1.85 L [facility] ([facility]) Fev6-Pre 2.90 L [facility] ([facility]) Fev6-%Pred-Pre 99 L [facility] ([facility]) Fev6-LLN 2.32 L [facility] ([facility]) Pgu1siw-Xrr 77 % [facility] ([facility]) Pyd7zas-Shlu 80 % [facility] ([facility]) Cor6hcv-%Pred-Pre 96 % [facility] ([facility]) Yms8eeq-Wuot 97 % [facility] ([facility]) Kyi4ssi-FEF 70 % [facility] ([facility]) Gci4bdx-Spn 100 % [facility] ([facility] ) Cdn1oxr-%Pred-Pre 103 % [facility] ([facility]) FEFMax-Pred 6.03 L/E/sec [facility] ([facility]) FEFMax-Pre 4.19 L/E/sec [facility] ([facility]) FEFMax-%Pred-Pre 69 L/E/sec [facility] ([facility]) FEFMax-LLN 4.52 L/E/sec [facility] ([facility]) Ron5577-Cjax 2.42 L/E/sec [facility] ([facility]) Dzc6119-Isp 1.89 L/E/sec [facility] ([facility]) Nyv5651-RGN 1.33 L/E/sec [facility] ([facility]) Plz7864-%Pred-Pre 78 L/E/sec [facility] ([facility]) ExpTime-Pre 6.03 sec [facility] ([facility]) Fhk8cvy9-Vjem 82 % [facility] ([facility]) Zic1vpe8-%Pred-Pre 93 % [facility] ([facility]) Muo0fza8-Oyd 77 % [facility] ([facility]) Ltg0yze6-FOO 73 % [facility] ([facility]) ID Date Data Source [id number] 07/12/2020 11:15:17 AM EDT [facility] Measurements & CalculationsHeight: 60 inches (5 ft. [...] ertion. No response to nebulizer. Has seen parking regulation enforcement officer in the past but they are refusing [...] during this visit, including review of any pbkp-utv-mffmwyx medications, herbal therapies, and/or supplements.Allergy ReviewAllergy List [...] is? FairAssessment & Plan Problems:Assessed:Acute bronchitis, unspecified ([id number]) Assessment: Instructions: Restart Symbicort.Refer back to Pulmonary.To [...] (Critical)Orders:Adult - Ofc Vst, EST, Level III [CPT-91881] Pulmonology Consult [CPT-58491] Name Value Range Interpretation Code Description Data Jody rce(s) Supporting Document(s) Procedure Social History Code Duration Value Status Description Data Source(s ) Smoking 06/20/2021 12:00:00 AM EDT Current Smoker completed Curre nt Smoker eCW1 ([facility]) Smoking 06/20/2021 12:00:00 AM EDT Current Smoker completed Curre nt Smoker eCW1 ([facility]) Smoking 06/20/2021 12:00:00 AM EDT Current Smoker completed Curre nt Smoker eCW1 ([facility]) Smoking 06/20/2021 12:00:00 AM EDT Current Smoker completed Curre nt Smoker eCW1 ([facility]) Smoking 06/20/2021 12:00:00 AM EDT Current Smoker completed Curre nt Smoker eCW1 ([facility]) Smoking 03/29/2021 12:00:00 AM EDT Current Smoker completed Curre nt Smoker eCW1 ([facility]) Smoking 03/29/2021 12:00:00 AM EDT Current Smoker completed Curre nt Smoker eCW1 ([facility]) Smoking 03/29/2021 12:00:00 AM EDT Current Smoker completed Curre nt Smoker eCW1 ([facility]) Smoking 03/29/2021 12:00:00 AM EDT Current Smoker completed Curre nt Smoker eCW1 ([facility]) Smoking 03/29/2021 12:00:00 AM EDT Current Smoker completed Curre nt Smoker eCW1 ([facility]) Smoking 03/29/2021 12:00:00 AM EDT Current Smoker completed Curre nt Smoker eCW1 ([facility]) Smoking 03/21/2021 12:00:00 AM EDT Current Smoker completed Curre nt Smoker eCW1 ([facility]) Smoking 03/21/2021 12:00:00 AM EDT Current Smoker completed Curre nt Smoker eCW1 ([facility]) Smoking 03/21/2021 12:00:00 AM EDT Current Smoker completed Curre nt Smoker eCW1 ([facility]) Smoking 03/21/2021 12:00:00 AM EDT Current Smoker completed Curre nt Smoker eCW1 ([facility]) Smoking 03/21/2021 12:00:00 AM EDT Current Smoker completed Curre nt Smoker eCW1 ([facility]) Smoking 03/05/2021 12:00:00 AM EDT Current Smoker completed Curre nt Smoker eCW1 ([facility]) Smoking 03/05/2021 12:00:00 AM EDT Current Smoker completed Curre nt Smoker eCW1 ([facility]) Smoking 03/05/2021 12:00:00 AM EDT Current Smoker completed Curre nt Smoker eCW1 ([facility]) Smoking 11/08/2020 12:00:00 AM EST Current Smoker completed Curre nt Smoker eCW1 ([facility]) Smoking 11/08/2020 12:00:00 AM EST Current Smoker completed Curre nt Smoker eCW1 ([facility]) Smoking 11/08/2020 12:00:00 AM EST Current Smoker completed Curre nt Smoker eCW1 ([facility]) Smoking 11/08/2020 12:00:00 AM EST Current Smoker completed Curre nt Smoker eCW1 ([facility]) Smoking 11/08/2020 12:00:00 AM EST Current Smoker completed Curre nt Smoker eCW1 ([facility]) Smoking 11/08/2020 12:00:00 AM EST Current Smoker completed Curre nt Smoker eCW1 ([facility]) Smoking 11/08/2020 12:00:00 AM EST Current Smoker completed Curre nt Smoker eCW1 ([facility]) Smoking 11/08/2020 12:00:00 AM EST Current Smoker completed Curre nt Smoker eCW1 ([facility]) Smoking 10/02/2020 12:00:00 AM EST Current Smoker completed Curre nt Smoker eCW1 ([facility]) Smoking 10/02/2020 12:00:00 AM EST Current Smoker completed Curre nt Smoker eCW1 ([facility]) Smoking 10/02/2020 12:00:00 AM EST Current Smoker completed Curre nt Smoker eCW1 ([facility]) Vital Signs ID Date Data Source UNK Name Value Range Interpretation Code Description Data Source(s) Body weight 188 [lb_av] 188 [lb_av] eCW1 ([facility]) Body weight 85.28 kg 85.28 kg eCW1 ([facility]) Body height 60 [in_i] 60 [in_i] eCW1 ([facility]) Body mass index (BMI) [Ratio] 36.71 kg/m2 36.71 kg/m2 eCW1 ([facility]) Systolic blood pressure 130 mm[Hg] 130 mm[Hg] e CW1 ([facility]) Diastolic blood pressure 85 mm[Hg] 85 mm[Hg] eCW1 ([facility]) Body temperature 97 [degF] 97 [degF] eCW1 ([facility]) Body weight 188 [lb_av] 188 [lb_av] eCW1 ([facility]) Body height 60 [in_i] 60 [in_i] eCW1 ([facility]) Body mass index (BMI) [Ratio] 36.71 kg/m2 36.71 kg/m2 eCW1 ([facility]) Heart rate 80 /min 80 /min eCW1 ([facility]) Respiratory rate 20 /min 20 /min eCW1 ([facility]) Systolic blood pressure 128 mm[Hg] 128 mm[Hg] e CW1 ([facility]) Diastolic blood pressure 80 mm[Hg] 80 mm[Hg] eCW1 ([facility]) Body weight 186 [lb_av] 186 [lb_av] eCW1 ([facility] hospital) Body height 60 [in_i] 60 [in_i] eCW1 ([facility]) Body mass index (BMI) [Ratio] 36.32 kg/m2 36.32 kg/m2 eCW1 ([facility]) Heart rate 76 /min 76 /min eCW1 ([facility]) Respiratory rate 18 /min 18 /min eCW1 ([facility]) Body temperature 97.0 [degF] 97.0 [degF] eCW1 ( [facility]) Systolic blood pressure 128 mm[Hg] 128 mm[Hg] e CW1 ([facility]) Diastolic blood pressure 78 mm[Hg] 78 mm[Hg] eCW1 ([facility]) Respiratory rate 18 /min 18 /min eCW1 ([facility]) Diastolic blood pressure 80 mm[Hg] 80 mm[Hg] eCW1 ([facility]) Body weight 195 [lb_av] 195 [lb_av] eCW1 ([facility] hospital) Body temperature 98.8 [degF] 98.8 [degF] eCW1 ( [facility]) Systolic blood pressure 132 mm[Hg] 132 mm[Hg] e CW1 ([facility]) Body height 60 [in_i] 60 [in_i] eCW1 ([facility]) Body mass index (BMI) [Ratio] 38.08 kg/m2 38.08 kg/m2 eCW1 ([facility]) Heart rate 76 /min 76 /min eCW1 ([facility]) Systolic blood pressure 118 mm[Hg] 118 mm[Hg] M EDENT ([facility], ) Diastolic blood pressure 78 mm[Hg] 78 mm[Hg] MED[facility] ([facility], ) Heart rate 93 /min 93 /min MEDENT ([facility], ) Oxygen saturation in Arterial blood by Pulse oximetry 94 % 94 % [facility] ([facility], ) Body temperature 97.6 [degF] 97.6 [degF] MED[facility] ([facility], ) Body height 60 [in_i] 60 [in_i] MEDENT ([facility], ) 5'0" Body weight 187.00 [lb_av] 187.00 [lb_av] MEDEN T ([facility]) Body mass index (BMI) [Ratio] 36.5 kg/m2 36.5 k g/m2 [facility] [place] body weight 100 [lb_av] 100 [facility]_av[facility] Body weight 84.823 kg 84.823 kg [facility] ([facility]) Body surface area Derived from formula 1.81 m2 1.81 m2 [facility] ([facility]) Patient Treatment Plan of Care Planned Activity Planned Date Details Description Data Source (s) Baclofen 5 MG Oral Tablet 06/20/2021 12:00:00 AM EDT eCW1 ([facility]) Baclofen 5 MG Oral Tablet 06/20/2021 12:00:00 AM EDT eCW1 ([facility]) Baclofen 5 MG Oral Tablet 06/20/2021 12:00:00 AM EDT eCW1 ([facility]) Baclofen 5 MG Oral Tablet 06/20/2021 12:00:00 AM EDT eCW1 ([facility]) Baclofen 5 MG Oral Tablet 06/20/2021 12:00:00 AM EDT eCW1 ([facility]) Prednisone 20 MG Oral Tablet 03/21/2021 12:00:00 AM EDT eCW1 ([facility]) Acetaminophen 325 MG / Hydrocodone Bitartrate 5 MG Ora l Tablet 03/21/2021 12:00:00 AM EDT eCW1 ([facility]) Prednisone 20 MG Oral Tablet 03/21/2021 12:00:00 AM EDT eCW1 ([facility]) Acetaminophen 325 MG / Hydrocodone Bitartrate 5 MG Ora l Tablet 03/21/2021 12:00:00 AM EDT eCW1 ([facility]) Prednisone 20 MG Oral Tablet 03/21/2021 12:00:00 AM EDT eCW1 ([facility]) Acetaminophen 325 MG / Hydrocodone Bitartrate 5 MG Ora l Tablet 03/21/2021 12:00:00 AM EDT eCW1 ([facility]) Prednisone 20 MG Oral Tablet 03/21/2021 12:00:00 AM EDT eCW1 ([facility]) Acetaminophen 325 MG / Hydrocodone Bitartrate 5 MG Ora l Tablet 03/21/2021 12:00:00 AM EDT eCW1 ([facility]) Prednisone 20 MG Oral Tablet 03/21/2021 12:00:00 AM EDT eCW1 ([facility]) Acetaminophen 325 MG / Hydrocodone Bitartrate 5 MG Ora l Tablet 03/21/2021 12:00:00 AM EDT eCW1 ([facility]) atorvastatin 20 MG Oral Tablet 03/05/2021 12:00:00 AM EDT eCW1 ([facility]) Cyclobenzaprine hydrochloride 10 MG Oral Tablet 03/05/2021 12:00:00 AM EDT eCW1 ([facility]) atorvastatin 20 MG Oral Tablet 03/05/2021 12:00:00 AM EDT eCW1 ([facility]) Cyclobenzaprine hydrochloride 10 MG Oral Tablet 03/05/2021 12:00:00 AM EDT eCW1 ([facility]) atorvastatin 20 MG Oral Tablet 03/05/2021 12:00:00 AM EDT eCW1 ([facility]) Cyclobenzaprine hydrochloride 10 MG Oral Tablet 03/05/2021 12:00:00 AM EDT eCW1 ([facility]) Lisinopril 10 MG Oral Tablet 02/23/2021 12:00:00 AM EDT eCW1 ([facility]) Fluticasone Propionate 50 MCG/ACT 11/30/2020 12:00:00 AM EST eCW1 ([facility]) Fluticasone Propionate 50 MCG/ACT 11/30/2020 12:00:00 AM EST eCW1 ([facility]) Fluticasone Propionate 50 MCG/ACT 11/30/2020 12:00:00 AM EST eCW1 ([facility]) Fluticasone Propionate 50 MCG/ACT 11/30/2020 12:00:00 AM EST eCW1 ([facility]) Fluticasone Propionate 50 MCG/ACT 11/30/2020 12:00:00 AM EST eCW1 ([facility]) Fluticasone Propionate 50 MCG/ACT 11/30/2020 12:00:00 AM EST eCW1 ([facility]) Fluticasone Propionate 50 MCG/ACT 11/30/2020 12:00:00 AM EST eCW1 ([facility])
== END 2021-09-08 05:15 | disposition left against medical advice (07) ==
LOC: M ED 04:20
DX: Z53.21 Procedure and treatment not carried out due to patient leaving prior to being seen by health care provider (principal)

== ENCOUNTER 2021-09-29 06:57 | Emergency (ER) | payer MEDICARE, MEDICAID ==
[~2021-09-29] VITALS: Ht 152.4 cm; Wt 84.1 kg
[~2021-09-29 06:57] MED LIST changes: -CEFD1CAP8 PO; +CEFD300C41 PO; -LEVO500T3 PO; +LEVO500T4 PO; -MONT10TA10 PO; +MONT10TA97 PO; +ONDA-84 PO; -ONDA8TAB10 PO
[2021-09-29] MEDS ORDERED: NORCO, ANEXSIA 5/325MG TABLET (HYDROcodone/ACETAMINOPHEN) PO ONE (09:10)
[2021-09-29 09:18] VITALS: BP 134/78
== END 2021-09-29 09:22 | disposition home or self-care (01) ==
LOC: M ED 06:57
DX: S42.352A Displaced comminuted fracture of shaft of humerus, left arm, initial encounter for closed fracture (principal); I10 Essential (primary) hypertension; G35 Multiple sclerosis; Y92.009 Unspecified place in unspecified non-institutional (private) residence as the place of occurrence of the external cause; Y93.9 Activity, unspecified; Y99.9 Unspecified external cause status; W01.0XXA Fall on same level from slipping, tripping and stumbling without subsequent striking against object, initial encounter; W54.8XXA Other contact with dog, initial encounter

== ENCOUNTER 2022-03-05 08:16 | Outpatient (CLI) | payer MEDICAID ==
[2022-03-05 08:20] VITALS: BP 145/79
[2022-03-05] MEDS ORDERED: methylPREDNISolone 1,000 MG, VIAL MATE ADAPTER 1 EACH in NS 250 ML IV ONE (08:30)
[2022-03-05 09:58] VITALS: BP 151/76
== END 2022-03-05 10:00 | disposition home or self-care (01) ==
LOC: M INFU 08:16
PROVIDERS: ATTEND Physician Assistant
DX: H46.8 Other optic neuritis (principal); Z88.2 Allergy status to sulfonamides; Z88.6 Allergy status to analgesic agent
CPT/HCPCS: 96365; J2930

== ENCOUNTER 2022-03-06 08:20 | Outpatient (CLI) | payer MEDICAID ==
[2022-03-06] MEDS ORDERED: methylPREDNISolone 1,000 MG, VIAL MATE ADAPTER 1 EACH in NS 250 ML IV ONE (08:30)
[2022-03-06 08:51] VITALS: BP 132/83
[2022-03-06 09:48] VITALS: BP 130/77
== END 2022-03-06 09:48 | disposition home or self-care (01) ==
LOC: M INFU 08:20
PROVIDERS: ATTEND Physician Assistant
DX: H46.9 Unspecified optic neuritis (principal); Z88.2 Allergy status to sulfonamides; Z88.6 Allergy status to analgesic agent; Z88.8 Allergy status to other drugs, medicaments and biological substances
CPT/HCPCS: 96365; J2930

== ENCOUNTER 2022-03-07 09:15 | Outpatient (CLI) | payer MEDICAID, OTHER ==
[~2022-03-07] VITALS: Ht 152.4 cm; Wt 84.0 kg
[2022-03-07] MEDS ORDERED: methylPREDNISolone 1,000 MG, VIAL MATE ADAPTER 1 EACH in NS 250 ML IV ONE (09:30)
[2022-03-07 09:37] VITALS: BP 112/55
[2022-03-07 10:45] VITALS: BP 135/81
== END 2022-03-07 10:45 | disposition home or self-care (01) ==
LOC: M INFU 09:15
PROVIDERS: ATTEND Physician Assistant
DX: H46.9 Unspecified optic neuritis (principal); Z88.2 Allergy status to sulfonamides; Z88.8 Allergy status to other drugs, medicaments and biological substances; Z88.6 Allergy status to analgesic agent
CPT/HCPCS: 96365; J2930

== ENCOUNTER 2022-05-05 06:26 | Emergency (ER) | payer MEDICAID ==
[~2022-05-05] VITALS: Ht 162.6 cm; Wt 81.8 kg
[~2022-05-05 06:26] MED LIST changes: +ALBU2.5V10 INH; +ALBU2.5V10 NEB; -ALBU83IN INH; -ALBU83IN NEB
[2022-05-05] MEDS ORDERED: IPRATROPIUM 0.5MG/ALBUTEROL 2.5MG INH SOL UD 3ML (DUONEB) NEB SCH (09:00)
[2022-05-05] MEDS ORDERED: AUGMENTIN 875 MG TAB PO ONE (09:10)
[2022-05-05] MEDS ORDERED: AMOX875T2 PO (09:11)
[2022-05-05] MEDS ORDERED: FLON1SPR NARES (09:11)
[2022-05-05 09:16] VITALS: BP 145/88
== END 2022-05-05 09:20 | disposition home or self-care (01) ==
LOC: M ED 06:26
DX: K04.7 Periapical abscess without sinus (principal); R09.82 Postnasal drip; F17.200 Nicotine dependence, unspecified, uncomplicated; I10 Essential (primary) hypertension; G43.909 Migraine, unspecified, not intractable, without status migrainosus; Z88.2 Allergy status to sulfonamides; Z88.6 Allergy status to analgesic agent; Z79.51 Long term (current) use of inhaled steroids; Z79.811 Long term (current) use of aromatase inhibitors; Z79.899 Other long term (current) drug therapy

== ENCOUNTER → 2022-08-28 | Outpatient (REF) | payer MEDICAID ==
[~2022-08-28] MED LIST changes: +AMOX875T2 PO; -DOXY-350 PO; +DOXY-444 PO; +FLON1SPR NARES; +LEVO1TAB39 PO; -LEVO500T4 PO
== END ==
LOC: M LAB REF 16:04
PROVIDERS: ATTEND Physician Assistant
DX: R05.9 Cough, unspecified (principal)

== ENCOUNTER 2022-09-20 22:09 | Emergency (ER) | payer MEDICAID, OTHER ==
[~2022-09-20] VITALS: Ht 152.4 cm; Wt 79.5 kg
[2022-09-21 00:28] LABS: HEMATOCRIT 45.7 % (36.0-47.0); HEMOGLOBIN 15.3 g/dl (12.0-15.5); MEAN CORPUSCULAR HEMOGLOBIN 31.2 pg (27.0-33.0); MEAN CORPUSCULAR HGB CONC 33.5 g/dl (32.0-36.5); MEAN CORPUSCULAR VOLUME 93.1 fl (80.0-96.0); PLATELET COUNT, AUTOMATED 372 10^3/uL (150-450); RED BLOOD COUNT 4.91 10^6/uL (4.00-5.40); WHITE BLOOD COUNT 9.8 10^3/uL (4.0-10.0)
[2022-09-21 00:39] LABS: ACETAMINOPHEN LEVEL < 2.0 UG/ML (10.0-20.0); ALBUMIN 3.7 G/DL (3.2-5.2); ALT/SGPT 16 U/L (7.0-40); BILIRUBIN,DIRECT < 0.1 MG/DL (<0.4); BILIRUBIN,TOTAL < 0.2 MG/DL (0.3-1.2); BLOOD UREA NITROGEN < 5 MG/DL (9-23); CARBON DIOXIDE LEVEL 24 MMOL/L (20-31); CHLORIDE LEVEL 103 MMOL/L (98-107); CREATININE FOR GFR 0.35 MG/DL (0.55-1.30); GLOMERULAR FILTRATION RATE > 60.0 (>51); GLUCOSE, FASTING 145 MG/DL (60-100); POTASSIUM SERUM 3.7 MMOL/L (3.5-5.1); SODIUM LEVEL 141 MMOL/L (136-145); THYROID STIMULATING HORMONE 0.594 uIU/ML (0.55-4.78); TOTAL PROTEIN 7.6 G/DL (5.7-8.2)
[2022-09-21 01:08] LABS: ETHYL ALCOHOL (ETHANOL) 0.278 % (0.000-0.010)
[2022-09-21 01:23] LABS: RSV AMPLIFICATION NEGATIVE (NEGATIVE)
[2022-09-21 01:35] LABS: SALICYLATE LEVEL < 3.0 MG/DL (<30)
[2022-09-21 06:09] LABS: AMPHETAMINES LEVEL URINE NEGATIVE (NEGATIVE); BARBITURATES URINE NEGATIVE (NEGATIVE); BENZODIAZEPINES URINE NEGATIVE (NEGATIVE); CANNABINOIDS URINE NEGATIVE (NEGATIVE); COCAINE METABOLITE URINE NEGATIVE (NEGATIVE); METHADONE URINE NEGATIVE (NEGATIVE); OPIATES URINE NEGATIVE (NEGATIVE); PHENCYCLIDINE URINE NEGATIVE (NEGATIVE)
[2022-09-21 10:54] VITALS: BP 150/72
== END 2022-09-21 11:07 | disposition home or self-care (01) ==
LOC: M ED 22:09
DX: F10.129 Alcohol abuse with intoxication, unspecified (principal); I11.0 Hypertensive heart disease with heart failure; I50.9 Heart failure, unspecified; J44.9 Chronic obstructive pulmonary disease, unspecified; G35 Multiple sclerosis; R56.9 Unspecified convulsions; E78.5 Hyperlipidemia, unspecified; H46.9 Unspecified optic neuritis; Z90.49 Acquired absence of other specified parts of digestive tract; F17.210 Nicotine dependence, cigarettes, uncomplicated; Z88.2 Allergy status to sulfonamides; Z88.6 Allergy status to analgesic agent; Z88.8 Allergy status to other drugs, medicaments and biological substances; Z79.51 Long term (current) use of inhaled steroids; Z79.899 Other long term (current) drug therapy

== ENCOUNTER → 2022-10-14 | Outpatient (CLI) | payer MEDICAID, OTHER ==
[~2022-10-14] MED LIST changes: -PAXI20TA29 PO; +PAXI20TA30 PO; -PAXI30TA11 PO; +PAXI30TA12 PO; -PAXI40TA10 PO; +PAXI40TA12 PO
== END ==
LOC: M RAD 08:23
PROVIDERS: ATTEND Physician Assistant Medical
DX: S82.831A Other fracture of upper and lower end of right fibula, initial encounter for closed fracture (principal); X58.XXXA Exposure to other specified factors, initial encounter; Y92.9 Unspecified place or not applicable

== ENCOUNTER 2022-12-04 09:07 | Inpatient (IN) | payer MEDICAID ==
[~2022-12-04] VITALS: Ht 152.4 cm; Wt 78.1 kg
[2022-12-04] MEDS: SYMBICORT 80/4.5MCG INHALER 6GM INH SCH ×2 (09:00→21:00)
[2022-12-04] MEDS: lamoTRIgine 100MG TAB PO SCH ×2 (09:00→21:14)
[2022-12-04] MEDS: PARoxetine 10MG TABLET PO SCH (09:00)
[~2022-12-04 09:07] MED LIST changes: +DIPH-435 PO; -DIPH25CA32 PO; +NYST-38 SS; -NYST50SS SS
[2022-12-04] MEDS ORDERED: ONDANSETRON 4MG 2ML VIAL As Ordered ONE ×2 (09:24→12:08)
[2022-12-04] MEDS ORDERED: LORazepam 2 MG/ML VIAL IV STA (09:44)
[2022-12-04] MEDS ORDERED: LORazepam 2 MG/ML VIAL As Ordered ONE (09:47)
[2022-12-04 09:57] LABS: BASO # 0.1 10^3/uL (0.0-0.2); BASO % 0.6 % (0.0-1.0); EOS % 0.1 % (0.0-3.0); HEMATOCRIT 45.7 % (36.0-47.0); HEMOGLOBIN 15.5 g/dl (12.0-15.5); LYMPH # 2.5 10^3/uL (1.5-5.0); MEAN CORPUSCULAR HEMOGLOBIN 31.8 pg (27.0-33.0); MEAN CORPUSCULAR HGB CONC 33.9 g/dl (32.0-36.5); MEAN CORPUSCULAR VOLUME 93.6 fl (80.0-96.0); MONO # 0.9 10^3/uL (0.0-0.8); MONO % 7.4 % (2.0-8.0); NEUTROPHILS # 8.8 10^3/uL (1.5-8.5); PLATELET COUNT, AUTOMATED 230 10^3/uL (150-450); RED BLOOD COUNT 4.88 10^6/uL (4.00-5.40); WHITE BLOOD COUNT 12.4 10^3/uL (4.0-10.0)
[2022-12-04] MEDS ORDERED: IPRATROPIUM 0.5MG/ALBUTEROL 2.5MG INH SOL UD 3ML (DUONEB) As Ordered ONE ×2 (09:59→10:00)
[2022-12-04] MEDS ORDERED: LORazepam 2 MG TAB PO PRN (10:00)
[2022-12-04] MEDS ORDERED: NS 1,000 ML IV ONE ×2 (10:00)
[2022-12-04] MEDS: IPRATROPIUM 0.5MG/ALBUTEROL 2.5MG INH SOL UD 3ML (DUONEB) NEB SCH ×5 (10:03→19:32)
[2022-12-04 10:19] LABS: CK-MB VALUE MASS 3.8 NG/ML (<3.6)
[2022-12-04] MEDS ORDERED: diazePAM 10MG/2ML SYRINGE As Ordered ONE (10:38)
[2022-12-04] MEDS ORDERED: methylPREDNISolone 125MG 2ML VIAL IV ONE (10:50)
[2022-12-04 10:55] LABS: ALBUMIN 2.9 G/DL (3.2-5.2); ALKALINE PHOSPHATASE 178 U/L (46-116); ALT/SGPT 43 U/L (7.0-40); AST/SGOT 173 U/L (<34); BILIRUBIN,DIRECT 0.2 MG/DL (<0.4); BILIRUBIN,TOTAL 0.7 MG/DL (0.3-1.2); BLOOD UREA NITROGEN 8 MG/DL (9-23); CALCIUM LEVEL 7.9 MG/DL (8.5-10.1); CARBON DIOXIDE LEVEL 26 MMOL/L (20-31); CHLORIDE LEVEL 91 MMOL/L (98-107); CPK CREATINE PHOSPHOKINASE 663 U/L (34-145); CREATININE FOR GFR 0.46 MG/DL (0.55-1.30); GLOMERULAR FILTRATION RATE > 60.0 (>51); GLUCOSE, FASTING 196 MG/DL (60-100); MB/CK RELATIVE INDEX 0.57 (< OR =4); SODIUM LEVEL 139 MMOL/L (136-145); TOTAL PROTEIN 7.1 G/DL (5.7-8.2)
[2022-12-04] MEDS ORDERED: cefTRIAXone SOD 2 GM in D5W MINI-BAG PLUS 50 ML IV ONE (10:55)
[2022-12-04] MEDS ORDERED: NS 1,980 ML in IV 1 EA IV ONE (10:55)
[2022-12-04] MEDS ORDERED: ISOVUE-370 76% 100ML VIAL As Ordered ONE (11:10)
[2022-12-04] MEDS ORDERED: ONDANSETRON 4MG 2ML VIAL IV ONE (12:10)
[2022-12-04] MEDS ORDERED: KCL 10MEQ/100ML SWI (KRUN) 10 MEQ in IV 1 EA IV ONE (12:25)
[2022-12-04 12:30] VITALS: O2SAT 94
[2022-12-04 12:47] LABS: ETHYL ALCOHOL (ETHANOL) 0.132 % (0.000-0.010)
[2022-12-04 12:48] LABS: SALICYLATE LEVEL < 3.0 MG/DL (<30)
[2022-12-04] MEDS ORDERED: ACETAMINOPHEN TAB 650MG DOSE (2X325MG) PO PRN (13:00)
[2022-12-04] MEDS ORDERED: POTASSIUM CHLORIDE 10MEQ SR TABLET PO ONE (13:00)
[2022-12-04] MEDS ORDERED: ONDANSETRON 4MG 2ML VIAL IV PRN (13:00)
[2022-12-04] MEDS ORDERED: IPRATROPIUM 0.5MG/ALBUTEROL 2.5MG INH SOL UD 3ML (DUONEB) NEB PRN (13:00)
[2022-12-04 13:08] LABS: OSMOLALITY SERUM 328 MOSM/KG (275-295)
[2022-12-04] MEDS ORDERED: PROP10TA56 PO (13:20)
[2022-12-04] MEDS ORDERED: LISI10TA22 PO (13:20)
[2022-12-04] MEDS ORDERED: clonazePAM 0.5 MG TAB PO PRN (13:25)
[2022-12-04] MEDS ORDERED: HOME MED LIST COMPLETE! XX SCH (13:25)
[2022-12-04] MEDS ORDERED: CETIRIZINE (ZyrTEC) 10 MG TAB PO PRN (13:25)
[2022-12-04] MEDS ORDERED: ALBUTEROL 90 MCG/ACT 8GM HFA INHALER INH PRN (13:25)
[2022-12-04] MEDS: FOLIC ACID 1MG TAB PO SCH (14:06)
[2022-12-04] MEDS: AZITHROMYCIN 250MG TABLET PO SCH (14:06)
[2022-12-04] MEDS: PANTOPRAZOLE 40MG TAB (PROTONIX) PO SCH (14:07)
[2022-12-04] MEDS: THIAMINE 100 MG TAB PO SCH ×2 (14:07→21:15)
[2022-12-04] MEDS: OXAZEPAM 10MG CAP PO SCH ×2 (14:07→18:16)
[2022-12-04] MEDS: MULTIVITAMINS/MINERALS THERAP 1 TAB PO SCH (14:07)
[2022-12-04] MEDS: PROPRANOLOL 10 MG TAB PO SCH ×2 (14:09→21:00)
[2022-12-04 16:45] VITALS: BP 154/88
[2022-12-04 16:50] VITALS: BP 154/88
[2022-12-04] MEDS: guaiFENesin 200 MG TAB PO SCH ×3 (17:21→21:15)
[2022-12-04 19:33] VITALS: BP 111/56
[2022-12-04] MEDS: LORazepam 2 MG TAB PO PRN (19:41)
[2022-12-04 19:53] VITALS: BP 111/56
[2022-12-04] MEDS ORDERED: QUEtiapine FUMARATE 100 MG TAB PO SCH (21:00)
[2022-12-04] MEDS ORDERED: THIAMINE 100 MG TAB PO SCH (21:00)
[2022-12-04] MEDS: MONTELUKAST 10 MG TAB PO SCH (21:15)
[2022-12-04 22:00] VITALS: BP 94/48
[2022-12-05] VITALS (10 sets, daily range): BP systolic 108–149; BP diastolic 57–83
[2022-12-05] MEDS: methylPREDNISolone 40MG 1ML VIAL IV SCH ×3 (00:12→23:03)
[2022-12-05] MEDS: OXAZEPAM 10MG CAP PO SCH ×5 (00:13→23:03)
[2022-12-05] MEDS: guaiFENesin 200 MG TAB PO SCH ×6 (02:00→21:00)
[2022-12-05] MEDS: IPRATROPIUM 0.5MG/ALBUTEROL 2.5MG INH SOL UD 3ML (DUONEB) NEB SCH ×3 (04:00→08:00)
[2022-12-05] MEDS ORDERED: OXAZEPAM 10MG CAP As Ordered ONE (05:18)
[2022-12-05 06:01] LABS: CPK CREATINE PHOSPHOKINASE 791 U/L (34-145)
[2022-12-05 06:02] LABS: ALBUMIN 2.5 G/DL (3.2-5.2); ALKALINE PHOSPHATASE 131 U/L (46-116); ALT/SGPT 36 U/L (7.0-40); AST/SGOT 104 U/L (<34); BILIRUBIN,TOTAL 0.9 MG/DL (0.3-1.2); BLOOD UREA NITROGEN 7 MG/DL (9-23); CALCIUM LEVEL 7.7 MG/DL (8.5-10.1); CARBON DIOXIDE LEVEL 32 MMOL/L (20-31); CHLORIDE LEVEL 98 MMOL/L (98-107); CREATININE FOR GFR 0.45 MG/DL (0.55-1.30); GLOMERULAR FILTRATION RATE > 60.0 (>51); GLUCOSE, FASTING 160 MG/DL (60-100); MAGNESIUM LEVEL 1.5 MG/DL (1.8-2.4); POTASSIUM SERUM 2.8 MMOL/L (3.5-5.1); SODIUM LEVEL 139 MMOL/L (136-145); TOTAL PROTEIN 5.7 G/DL (5.7-8.2)
[2022-12-05 06:21] LABS: HEMATOCRIT 35.4 % (36.0-47.0); MEAN CORPUSCULAR HEMOGLOBIN 32.3 pg (27.0-33.0); MEAN CORPUSCULAR HGB CONC 33.6 g/dl (32.0-36.5); MEAN CORPUSCULAR VOLUME 96.2 fl (80.0-96.0); PLATELET COUNT, AUTOMATED 142 10^3/uL (150-450); RED BLOOD COUNT 3.68 10^6/uL (4.00-5.40); WHITE BLOOD COUNT 8.1 10^3/uL (4.0-10.0)
[2022-12-05 06:23] LABS: HEMOGLOBIN 11.9 g/dl (12.0-15.5)
[2022-12-05] MEDS ORDERED: MAGNESIUM OXIDE 400MG TAB (MAG-OX) PO ONE (07:25)
[2022-12-05] MEDS ORDERED: POTASSIUM CHLORIDE 10MEQ SR TABLET PO ONE ×2 (07:25→14:35)
[2022-12-05] MEDS ORDERED: KCL 10MEQ/100ML SWI (KRUN) 10 MEQ in IV 1 EA IV ONE ×2 (08:00→22:50)
[2022-12-05] MEDS ORDERED: MULTIVITAMINS/MINERALS THERAP 1 TAB PO SCH (09:00)
[2022-12-05] MEDS ORDERED: FOLIC ACID 1MG TAB PO SCH (09:00)
[2022-12-05] MEDS ORDERED: FLUBLOK(EGG FREE)(QUAD)INFLUENZA VACC 0.5ML SYRINGE 18YRS & OLDER IM.IMMUN ONE (09:00)
[2022-12-05] MEDS: MULTIVITAMINS/MINERALS THERAP 1 TAB PO SCH (10:04)
[2022-12-05] MEDS: AZITHROMYCIN 250MG TABLET PO SCH (10:06)
[2022-12-05] MEDS: PANTOPRAZOLE 40MG TAB (PROTONIX) PO SCH (10:06)
[2022-12-05] MEDS: PARoxetine 10MG TABLET PO SCH (10:07)
[2022-12-05] MEDS ORDERED: PILL CUTTER 1 EACH XX ONE (10:08)
[2022-12-05] MEDS: THIAMINE 100 MG TAB PO SCH ×2 (10:08→20:17)
[2022-12-05] MEDS: lamoTRIgine 100MG TAB PO SCH ×2 (10:10→20:16)
[2022-12-05] MEDS: FOLIC ACID 1MG TAB PO SCH (10:11)
[2022-12-05] MEDS: PROPRANOLOL 10 MG TAB PO SCH ×2 (10:13→20:17)
[2022-12-05] MEDS: NS 1,000 ML IV SCH ×2 (10:14→20:00)
[2022-12-05] MEDS: ENOXAPARIN 40MG/0.4ML SYRINGE (J1650 PER 10MG) SC SCH (10:41)
[2022-12-05] MEDS: SYMBICORT 80/4.5MCG INHALER 6GM INH SCH ×2 (11:31→20:13)
[2022-12-05] MEDS: LEVALBUTEROL 1.25MG 0.5ML CONCENTRATE NEB INH SCH ×3 (11:35→20:00)
[2022-12-05 13:20] LABS: HEMATOCRIT 38.1 % (36.0-47.0); HEMOGLOBIN 12.8 g/dl (12.0-15.5)
[2022-12-05] MEDS: LORazepam 2 MG TAB PO PRN (13:34)
[2022-12-05] MEDS: cefTRIAXone SOD 2 GM in D5W MINI-BAG PLUS 50 ML IV SCH (13:35)
[2022-12-05 13:55] LABS: BLOOD UREA NITROGEN 8 MG/DL (9-23); CALCIUM LEVEL 8.2 MG/DL (8.5-10.1); CARBON DIOXIDE LEVEL 32 MMOL/L (20-31); CHLORIDE LEVEL 96 MMOL/L (98-107); CREATININE FOR GFR 0.45 MG/DL (0.55-1.30); GLOMERULAR FILTRATION RATE > 60.0 (>51); GLUCOSE, FASTING 148 MG/DL (60-100); POTASSIUM SERUM 2.9 MMOL/L (3.5-5.1); SODIUM LEVEL 135 MMOL/L (136-145)
[2022-12-05] MEDS: MONTELUKAST 10 MG TAB PO SCH (20:17)
[2022-12-05] MEDS ORDERED: QUEtiapine FUMARATE 50MG TAB PO ONE (21:00)
[2022-12-05 22:38] LABS: BLOOD UREA NITROGEN 8 MG/DL (9-23); CALCIUM LEVEL 7.9 MG/DL (8.5-10.1); CARBON DIOXIDE LEVEL 30 MMOL/L (20-31); CHLORIDE LEVEL 98 MMOL/L (98-107); CREATININE FOR GFR 0.51 MG/DL (0.55-1.30); GLOMERULAR FILTRATION RATE > 60.0 (>51); GLUCOSE, FASTING 196 MG/DL (60-100); POTASSIUM SERUM 3.1 MMOL/L (3.5-5.1); SODIUM LEVEL 136 MMOL/L (136-145)
[2022-12-06] VITALS: BP 134/78
[2022-12-06] MEDS: guaiFENesin 200 MG TAB PO SCH ×3 (02:13→09:45)
[2022-12-06] MEDS: NS 1,000 ML IV SCH (03:49)
[2022-12-06 04:00] VITALS: BP 149/85
[2022-12-06] MEDS: OXAZEPAM 10MG CAP PO SCH (05:01)
[2022-12-06 05:18] LABS: BASO % 0.2 % (0.0-1.0); HEMOGLOBIN 11.3 g/dl (12.0-15.5); LYMPH # 0.9 10^3/uL (1.5-5.0); LYMPH % 18.2 % (24.0-44.0); MEAN CORPUSCULAR HEMOGLOBIN 31.7 pg (27.0-33.0); MEAN CORPUSCULAR HGB CONC 32.3 g/dl (32.0-36.5); MONO # 0.3 10^3/uL (0.0-0.8); MONO % 5.3 % (2.0-8.0); NEUTROPHILS # 3.8 10^3/uL (1.5-8.5); NEUTROPHILS % 74.7 % (36.0-66.0); PLATELET COUNT, AUTOMATED 141 10^3/uL (150-450); RED BLOOD COUNT 3.57 10^6/uL (4.00-5.40); WHITE BLOOD COUNT 5.1 10^3/uL (4.0-10.0)
[2022-12-06 05:46] LABS: ALBUMIN 2.4 G/DL (3.2-5.2); ALKALINE PHOSPHATASE 114 U/L (46-116); ALT/SGPT 39 U/L (7.0-40); AST/SGOT 84 U/L (<34); BILIRUBIN,TOTAL 0.4 MG/DL (0.3-1.2); BLOOD UREA NITROGEN 7 MG/DL (9-23); CARBON DIOXIDE LEVEL 30 MMOL/L (20-31); CHLORIDE LEVEL 100 MMOL/L (98-107); CREATININE FOR GFR 0.47 MG/DL (0.55-1.30); GLOMERULAR FILTRATION RATE > 60.0 (>51); GLUCOSE, FASTING 221 MG/DL (60-100); MAGNESIUM LEVEL 1.5 MG/DL (1.8-2.4); POTASSIUM SERUM 3.4 MMOL/L (3.5-5.1); SODIUM LEVEL 138 MMOL/L (136-145); TOTAL PROTEIN 5.9 G/DL (5.7-8.2)
[2022-12-06] MEDS ORDERED: MAG SULF 1GM/100ML (MAG RUN) 1 GM in IV 1 EA IV ONE (06:30)
[2022-12-06] MEDS ORDERED: POTASSIUM CHLORIDE 10MEQ SR TABLET PO ONE (07:10)
[2022-12-06] MEDS ORDERED: MAGNESIUM OXIDE 400MG TAB (MAG-OX) PO ONE (07:10)
[2022-12-06] MEDS: SYMBICORT 80/4.5MCG INHALER 6GM INH SCH (07:16)
[2022-12-06] MEDS: LEVALBUTEROL 1.25MG 0.5ML CONCENTRATE NEB INH SCH ×2 (07:16→11:27)
[2022-12-06] MEDS ORDERED: KCL 10MEQ/100ML SWI (KRUN) 10 MEQ in IV 1 EA IV ONE (07:30)
[2022-12-06 07:48] VITALS: BP 151/85
[2022-12-06 08:05] LABS: CPK CREATINE PHOSPHOKINASE 334 U/L (34-145)
[2022-12-06] MEDS: AZITHROMYCIN 250MG TABLET PO SCH (09:00)
[2022-12-06] MEDS ORDERED: AZITHROMYCIN 250MG TABLET PO ONE (09:10)
[2022-12-06] MEDS ORDERED: MONT10TA97 PO (09:11)
[2022-12-06] MEDS ORDERED: PRED20TA PO (09:11)
[2022-12-06] MEDS ORDERED: SYMB80INH INH (09:11)
[2022-12-06] MEDS ORDERED: FOLI1TAB11 PO (09:11)
[2022-12-06] MEDS ORDERED: GUAI20TA PO (09:11)
[2022-12-06] MEDS ORDERED: THIA100TA PO (09:11)
[2022-12-06] MEDS ORDERED: VENTAER INH (09:11)
[2022-12-06] MEDS ORDERED: VITMTA PO (09:11)
[2022-12-06] MEDS: THIAMINE 100 MG TAB PO SCH (09:31)
[2022-12-06] MEDS: lamoTRIgine 100MG TAB PO SCH (09:32)
[2022-12-06 09:33] VITALS: BP 151/85
[2022-12-06] MEDS: MULTIVITAMINS/MINERALS THERAP 1 TAB PO SCH (09:33)
[2022-12-06] MEDS: FOLIC ACID 1MG TAB PO SCH (09:33)
[2022-12-06] MEDS: PARoxetine 10MG TABLET PO SCH (09:33)
[2022-12-06] MEDS: PANTOPRAZOLE 40MG TAB (PROTONIX) PO SCH (09:33)
[2022-12-06] MEDS: PROPRANOLOL 10 MG TAB PO SCH (09:33)
[2022-12-06] MEDS: ENOXAPARIN 40MG/0.4ML SYRINGE (J1650 PER 10MG) SC SCH (09:34)
[2022-12-06] MEDS: methylPREDNISolone 40MG 1ML VIAL IV SCH (11:09)
[2022-12-06] MEDS: cefTRIAXone SOD 2 GM in D5W MINI-BAG PLUS 50 ML IV SCH (11:09)
[2022-12-06 11:47] VITALS: BP 144/86
[2022-12-06] MEDS ORDERED: OXAZEPAM 15MG CAP PO SCH (14:00)
== END 2022-12-06 12:55 | disposition home or self-care (01) | DRG 141 ==
LOC: M ED 10:37 → M ED INP 12:56 → ENRESERV 15:00 → M PCU 16:39
PROVIDERS: ADMIT Family Medicine; ATTEND Family Medicine
DX: J45.901 Unspecified asthma with (acute) exacerbation (principal); E87.20 Acidosis, unspecified; M62.82 Rhabdomyolysis; J44.1 Chronic obstructive pulmonary disease with (acute) exacerbation; G35 Multiple sclerosis; F10.10 Alcohol abuse, uncomplicated; I10 Essential (primary) hypertension; F32.A Depression, unspecified; F41.9 Anxiety disorder, unspecified; G40.909 Epilepsy, unspecified, not intractable, without status epilepticus; E86.0 Dehydration; F17.200 Nicotine dependence, unspecified, uncomplicated; E87.6 Hypokalemia; Z79.899 Other long term (current) drug therapy; Z88.6 Allergy status to analgesic agent; Z88.2 Allergy status to sulfonamides; Z88.8 Allergy status to other drugs, medicaments and biological substances; Z91.14 Patient's other noncompliance with medication regimen

== ENCOUNTER 2023-01-07 11:43 | Emergency (ER) | payer MEDICAID, OTHER, SELFPAY ==
[~2023-01-07] VITALS: Ht 152.4 cm; Wt 77.3 kg
[2023-01-07 11:43] VITALS: BP 130/73
[~2023-01-07 11:43] MED LIST changes: +GUAI20TA PO; +PROP10TA56 PO
== END 2023-01-07 11:55 | disposition left against medical advice (07) ==
LOC: M ED 11:43
DX: Z53.21 Procedure and treatment not carried out due to patient leaving prior to being seen by health care provider (principal)

== ENCOUNTER 2023-08-04 20:51 | Inpatient (IN) | payer MEDICAID, MEDICARE, OTHER, SELFPAY ==
[~2023-08-04] VITALS: Ht 152.4 cm; Wt 73.5 kg
[2023-08-04] MEDS: guaiFENesin ER TABLET 600 MG TAB PO SCH (21:00)
[2023-08-04] MEDS ORDERED: methylPREDNISolone 125MG 2ML VIAL IV ONE (21:20)
[2023-08-04 21:21] LABS: VENOUS BASE EXCESS -5.8 (-2.0-2.0); VENOUS HCO3 21.1 MMOL/L (23.0-27.0); VENOUS O2 SATURATION 64.9 % (60.0-80.0); VENOUS PARTIAL PRESSURE O2 35.1 mmHg (30.0-50.0); VENOUS PH 7.279 UNITS (7.330-7.430); VENOUS TOTAL CO2 22.5 MMOL/L (24.0-28.0)
[2023-08-04] MEDS: IPRATROPIUM 0.5MG/ALBUTEROL 2.5MG INH SOL UD 3ML (DUONEB) NEB PRN ×2 (21:35→21:36)
[2023-08-04 21:36] LABS: BASO % 0.3 % (0.0-1.0); EOS # 0.3 10^3/uL (0.0-0.5); EOS % 2.6 % (0.0-3.0); HEMATOCRIT 44.4 % (36.0-47.0); HEMOGLOBIN 15.4 g/dl (12.0-15.5); LYMPH # 0.3 10^3/uL (1.5-5.0); LYMPH % 2.6 % (24.0-44.0); MEAN CORPUSCULAR HEMOGLOBIN 34.5 pg (27.0-33.0); MEAN CORPUSCULAR HGB CONC 34.7 g/dl (32.0-36.5); MEAN CORPUSCULAR VOLUME 99.3 fl (80.0-96.0); MONO # 0.2 10^3/uL (0.0-0.8); MONO % 1.4 % (2.0-8.0); NEUTROPHILS # 10.4 10^3/uL (1.5-8.5); NEUTROPHILS % 92.5 % (36.0-66.0); PLATELET COUNT, AUTOMATED 209 10^3/uL (150-450); RED BLOOD COUNT 4.47 10^6/uL (4.00-5.40); WHITE BLOOD COUNT 11.3 10^3/uL (4.0-10.0)
[2023-08-04 21:49] LABS: CK-MB VALUE MASS < 1.0 NG/ML (<3.6)
[2023-08-04 21:50] LABS: ALBUMIN 2.6 G/DL (3.2-5.2); ALKALINE PHOSPHATASE 97 U/L (46-116); ALT/SGPT 38 U/L (7.0-40); AST/SGOT 58 U/L (<34); BILIRUBIN,DIRECT 0.6 MG/DL (<0.4); BLOOD UREA NITROGEN 24 MG/DL (9-23); CALCIUM LEVEL 8.5 MG/DL (8.5-10.1); CARBON DIOXIDE LEVEL 24 MMOL/L (20-31); CHLORIDE LEVEL 102 MMOL/L (98-107); CREATININE FOR GFR 0.87 MG/DL (0.55-1.30); GLOMERULAR FILTRATION RATE > 60.0 (>51); GLUCOSE, FASTING 129 MG/DL (60-100); POTASSIUM SERUM 3.7 MMOL/L (3.5-5.1); SODIUM LEVEL 132 MMOL/L (136-145); TOTAL PROTEIN 6.3 G/DL (5.7-8.2)
[2023-08-04 22:05] LABS: PROCALCITONIN 9.47 ng/ml
[2023-08-04 22:06] LABS: CPK CREATINE PHOSPHOKINASE 26 U/L (34-145); MB/CK RELATIVE INDEX 3.84 (< OR =4)
[2023-08-04] MEDS ORDERED: ISOVUE-370 76% 100ML VIAL As Ordered ONE (22:07)
[2023-08-04] MEDS ORDERED: AZITHROMYCIN INJ 500 MG, VIAL MATE ADAPTER 1 EACH in NS 250 ML IV ONE (23:05)
[2023-08-04] MEDS ORDERED: cefTRIAXone SOD 1 GM in D5W MINI-BAG PLUS 50 ML IV ONE (23:05)
[2023-08-05] VITALS (30 sets, daily range): BP systolic 77–122; BP diastolic 49–81; TEMP 97–98.9; O2SAT 82–99
[2023-08-05] MEDS ORDERED: NS 2,210 ML in IV 1 EA IV ONE ×2
[2023-08-05] MEDS ORDERED: ACETAMINOPHEN TAB 650MG DOSE (2X325MG) PO PRN (01:40)
[2023-08-05] MEDS ORDERED: IPRATROPIUM 0.5MG/ALBUTEROL 2.5MG INH SOL UD 3ML (DUONEB) NEB PRN (01:40)
[2023-08-05] MEDS ORDERED: LEVALBUTEROL 1.25MG 0.5ML CONCENTRATE NEB NEB PRN (01:50)
[2023-08-05] MEDS ORDERED: cefTRIAXone SOD 1 GM in D5W MINI-BAG PLUS 50 ML IV ONE (02:00)
[2023-08-05] MEDS: DOXYCYCLINE HYCLATE 100MG TABLET PO SCH ×3 (02:38→21:03)
[2023-08-05] MEDS: NS 1,000 ML IV SCH ×2 (02:39→07:13)
[2023-08-05] MEDS ORDERED: LR 1,000 ML IV ONE ×2 (03:25→04:40)
[2023-08-05] MEDS: ONDANSETRON 4MG 2ML VIAL IV PRN (03:50)
[2023-08-05] MEDS: IPRATROPIUM 0.5MG/ALBUTEROL 2.5MG INH SOL UD 3ML (DUONEB) NEB SCH ×6 (04:07→23:07)
[2023-08-05] MEDS ORDERED: NOREPINEPHRINE 4MG IN D5 250ML 4 MG in IV 1 EA IV SCH ×2 (04:45)
[2023-08-05 06:02] LABS: HEMATOCRIT 33.4 % (36.0-47.0); MEAN CORPUSCULAR HEMOGLOBIN 34.2 pg (27.0-33.0); MEAN CORPUSCULAR HGB CONC 34.1 g/dl (32.0-36.5); MEAN CORPUSCULAR VOLUME 100.3 fl (80.0-96.0); PLATELET COUNT, AUTOMATED 163 10^3/uL (150-450); RED BLOOD COUNT 3.33 10^6/uL (4.00-5.40); WHITE BLOOD COUNT 11.2 10^3/uL (4.0-10.0)
[2023-08-05 06:12] LABS: HEMOGLOBIN 11.4 g/dl (12.0-15.5)
[2023-08-05 06:32] LABS: ALBUMIN 1.8 G/DL (3.2-5.2); ALKALINE PHOSPHATASE 63 U/L (46-116); ALT/SGPT 26 U/L (7.0-40); AST/SGOT 27 U/L (<34); BILIRUBIN,TOTAL 0.5 MG/DL (0.3-1.2); BLOOD UREA NITROGEN 22 MG/DL (9-23); CALCIUM LEVEL 7.1 MG/DL (8.5-10.1); CARBON DIOXIDE LEVEL 20 MMOL/L (20-31); CHLORIDE LEVEL 105 MMOL/L (98-107); CREATININE FOR GFR 0.55 MG/DL (0.55-1.30); GLOMERULAR FILTRATION RATE > 60.0 (>51); GLUCOSE, FASTING 232 MG/DL (60-100); MAGNESIUM LEVEL 1.2 MG/DL (1.8-2.4); POTASSIUM SERUM 3.8 MMOL/L (3.5-5.1); SODIUM LEVEL 133 MMOL/L (136-145); TOTAL PROTEIN 4.6 G/DL (5.7-8.2)
[2023-08-05] MEDS ORDERED: MAG SULF 1GM/100ML (MAG RUN) 1 GM in IV 1 EA IV ONE ×2 (07:00→09:45)
[2023-08-05] MEDS: SYMBICORT 80/4.5MCG INHALER 6GM INH SCH ×2 (07:39→19:42)
[2023-08-05] MEDS ORDERED: VENTAER INH (08:17)
[2023-08-05] MEDS ORDERED: SYMB80INH INH (08:17)
[2023-08-05] MEDS ORDERED: PAXI20TA30 PO (08:25)
[2023-08-05] MEDS ORDERED: BELS1TAB2 PO (08:25)
[2023-08-05] MEDS ORDERED: ACET500T15 PO (08:25)
[2023-08-05] MEDS ORDERED: ESOM20CA25 PO (08:25)
[2023-08-05] MEDS ORDERED: NITR100C2 PO (08:25)
[2023-08-05] MEDS ORDERED: VITMTA PO (08:25)
[2023-08-05] MEDS ORDERED: FOLI1TAB11 PO (08:25)
[2023-08-05] MEDS ORDERED: MONT10TA97 PO (08:25)
[2023-08-05] MEDS ORDERED: ACAM0.05 PO (08:25)
[2023-08-05] MEDS ORDERED: HOME MED LIST COMPLETE! XX SCH (08:30)
[2023-08-05] MEDS: ENOXAPARIN 40MG/0.4ML SYRINGE (J1650 PER 10MG) SC SCH (09:05)
[2023-08-05] MEDS: guaiFENesin ER TABLET 600 MG TAB PO SCH ×2 (09:07→21:03)
[2023-08-05] MEDS: methylPREDNISolone 125MG 2ML VIAL IV SCH ×2 (09:08→21:03)
[2023-08-05] MEDS ORDERED: ALBUTEROL 90 MCG/ACT 8GM HFA INHALER INH PRN (09:45)
[2023-08-05 10:34] LABS: APPEARANCE, URINE CLEAR (CLEAR); BACTERIA, URINE AUTO NEGATIVE (NEGATIVE); BILIRUBIN, URINE AUTO NEGATIVE (NEGATIVE); BLOOD, URINE BLOOD NEGATIVE (NEGATIVE); COLOR, URINE YELLOW (YELLOW); GLUCOSE, URINE (UA) AUTO 3+ mg/dL (NEGATIVE); KETONE, URINE AUTO NEGATIVE (NEGATIVE); LEUKOCYTE ESTERASE, URINE AUTO NEGATIVE (NEGATIVE); NITRITE, URINE AUTO NEGATIVE (NEGATIVE); PROTEIN, URINE AUTO NEGATIVE (NEGATIVE); RBC, URINE AUTO 0 /HPF (0-3); SPECIFIC GRAVITY URINE AUTO 1.018 (1.002-1.035); SQUAMOUS EPITHELIAL CELL UR AU 1 /HPF (0-6); UROBILINOGEN, URINE AUTO 0.2 mg/dL (0.0-2.0); WBC, URINE AUTO 1 /HPF (0-3)
[2023-08-05] MEDS: MULTIVITAMINS/MINERALS THERAP 1 TAB PO SCH (13:27)
[2023-08-05] MEDS: PARoxetine 20MG TABLET PO SCH (13:27)
[2023-08-05] MEDS: FOLIC ACID 1MG TAB PO SCH (13:27)
[2023-08-05] MEDS: ACAMPROSATE CALCIUM 333MG TABLET (CAMPRAL) PO SCH ×2 (13:27→18:00)
[2023-08-05] MEDS: lamoTRIgine 100MG TAB PO SCH ×2 (13:28→21:03)
[2023-08-05] MEDS: MAG SULF 1GM/100ML (MAG RUN) 1 GM in IV 1 EA IV SCH ×2 (13:29→15:56)
[2023-08-05] MEDS: clonazePAM 0.5 MG TAB PO PRN ×2 (14:22→21:09)
[2023-08-05] MEDS: MONTELUKAST 10 MG TAB PO SCH (21:03)
[2023-08-06] VITALS (10 sets, daily range): BP systolic 97–153; BP diastolic 63–86; TEMP 96.8–98.3; O2SAT 92–100
[2023-08-06] MEDS ORDERED: cefTRIAXone SOD 2 GM in D5W MINI-BAG PLUS 50 ML IV SCH ×2
[2023-08-06] MEDS: IPRATROPIUM 0.5MG/ALBUTEROL 2.5MG INH SOL UD 3ML (DUONEB) NEB SCH ×6 (03:27→23:29)
[2023-08-06 04:42] LABS: HEMATOCRIT 32.9 % (36.0-47.0); HEMOGLOBIN 11.1 g/dl (12.0-15.5); MEAN CORPUSCULAR HEMOGLOBIN 33.9 pg (27.0-33.0); MEAN CORPUSCULAR HGB CONC 33.7 g/dl (32.0-36.5); MEAN CORPUSCULAR VOLUME 100.6 fl (80.0-96.0); PLATELET COUNT, AUTOMATED 167 10^3/uL (150-450); RED BLOOD COUNT 3.27 10^6/uL (4.00-5.40)
[2023-08-06 04:55] LABS: BLOOD UREA NITROGEN 13 MG/DL (9-23); CALCIUM LEVEL 7.5 MG/DL (8.5-10.1); CARBON DIOXIDE LEVEL 27 MMOL/L (20-31); CHLORIDE LEVEL 106 MMOL/L (98-107); CREATININE FOR GFR 0.38 MG/DL (0.55-1.30); GLOMERULAR FILTRATION RATE > 60.0 (>51); GLUCOSE, FASTING 350 MG/DL (60-100); POTASSIUM SERUM 3.9 MMOL/L (3.5-5.1); SODIUM LEVEL 136 MMOL/L (136-145)
[2023-08-06 05:37] LABS: ATYPICAL LYMPH 9 % (0-5); LYMPHOCYTES 9 % (16-44); METAMYELOCYTES 1 % (0-0); MONOCYTES 3 % (0-5); NEUTROPHILS 67 % (28-66); NUCLEATED RED BLOOD CELL 44 % (0-0); PLATELET ESTIMATE DECREASED (NORMAL)
[2023-08-06 05:38] LABS: ANISOCYTOSIS 1+
[2023-08-06 05:40] LABS: MAGNESIUM LEVEL 2.1 MG/DL (1.8-2.4)
[2023-08-06] MEDS: ACAMPROSATE CALCIUM 333MG TABLET (CAMPRAL) PO SCH ×3 (05:45→17:49)
[2023-08-06] MEDS: ONDANSETRON 4MG 2ML VIAL IV PRN (06:15)
[2023-08-06] MEDS: SYMBICORT 80/4.5MCG INHALER 6GM INH SCH ×2 (07:41→19:39)
[2023-08-06] MEDS: ENOXAPARIN 40MG/0.4ML SYRINGE (J1650 PER 10MG) SC SCH (08:24)
[2023-08-06] MEDS: MULTIVITAMINS/MINERALS THERAP 1 TAB PO SCH (08:25)
[2023-08-06] MEDS: lamoTRIgine 100MG TAB PO SCH ×2 (08:25→20:43)
[2023-08-06] MEDS: FOLIC ACID 1MG TAB PO SCH (08:25)
[2023-08-06] MEDS: guaiFENesin ER TABLET 600 MG TAB PO SCH ×2 (08:25→20:24)
[2023-08-06] MEDS: PARoxetine 20MG TABLET PO SCH (08:25)
[2023-08-06] MEDS: DOXYCYCLINE HYCLATE 100MG TABLET PO SCH (08:25)
[2023-08-06] MEDS: methylPREDNISolone 125MG 2ML VIAL IV SCH (10:04)
[2023-08-06] MEDS ORDERED: INSULIN LISPRO (NovoLOG) PER UNIT SC ONE ×2 (18:40→20:15)
[2023-08-06] MEDS ORDERED: GLUCAGON INJ 1MG VIAL SC PRN (18:45)
[2023-08-06] MEDS ORDERED: GLUCOSE 4GM CHEW TABLET PO PRN (18:45)
[2023-08-06] MEDS ORDERED: DEXTROSE 50% 50ML SYRINGE IV PRN (18:45)
[2023-08-06 19:35] LABS: HEMOGLOBIN A1c 5.2 % (4.0-6.0)
[2023-08-06] MEDS: MONTELUKAST 10 MG TAB PO SCH (20:24)
[2023-08-06] MEDS: clonazePAM 0.5 MG TAB PO PRN (20:24)
[2023-08-06] MEDS ORDERED: PILL CUTTER 1 EACH XX PRN (20:40)
[2023-08-06] MEDS: AUGMENTIN 875 MG TAB PO SCH (20:43)
[2023-08-06] MEDS ORDERED: INSULIN LISPRO (NovoLOG) PER UNIT SC SCH (21:00)
[2023-08-07] MEDS: IPRATROPIUM 0.5MG/ALBUTEROL 2.5MG INH SOL UD 3ML (DUONEB) NEB SCH ×3 (03:37→11:17)
[2023-08-07] MEDS: ACAMPROSATE CALCIUM 333MG TABLET (CAMPRAL) PO SCH (05:04)
[2023-08-07 05:23] VITALS: BP 140/72; TEMP 98.2; O2SAT 94
[2023-08-07] MEDS: SYMBICORT 80/4.5MCG INHALER 6GM INH SCH (07:21)
[2023-08-07 07:25] LABS: HEMATOCRIT 33.8 % (36.0-47.0); HEMOGLOBIN 11.4 g/dl (12.0-15.5); MEAN CORPUSCULAR HEMOGLOBIN 34.2 pg (27.0-33.0); MEAN CORPUSCULAR HGB CONC 33.7 g/dl (32.0-36.5); MEAN CORPUSCULAR VOLUME 101.5 fl (80.0-96.0); PLATELET COUNT, AUTOMATED 192 10^3/uL (150-450); RED BLOOD COUNT 3.33 10^6/uL (4.00-5.40); WHITE BLOOD COUNT 10.9 10^3/uL (4.0-10.0)
[2023-08-07] MEDS ORDERED: INSULIN LISPRO (NovoLOG) PER UNIT SC SCH (07:30)
[2023-08-07 07:46] LABS: BLOOD UREA NITROGEN 12 MG/DL (9-23); CALCIUM LEVEL 8.3 MG/DL (8.5-10.1); CARBON DIOXIDE LEVEL 28 MMOL/L (20-31); CHLORIDE LEVEL 102 MMOL/L (98-107); CREATININE FOR GFR 0.43 MG/DL (0.55-1.30); GLOMERULAR FILTRATION RATE > 60.0 (>51); GLUCOSE, FASTING 115 MG/DL (60-100); POTASSIUM SERUM 3.3 MMOL/L (3.5-5.1); SODIUM LEVEL 137 MMOL/L (136-145)
[2023-08-07 07:48] LABS: BASOPHILS 1 % (0-1); EOSINOPHILS 7 % (0-3); LYMPHOCYTES 39 % (16-44); MONOCYTES 2 % (0-5); MYELOCYTES 1 % (0-0); NEUTROPHILS 48 % (28-66)
[2023-08-07 07:49] LABS: PLATELET ESTIMATE NORMAL (NORMAL)
[2023-08-07] MEDS: MULTIVITAMINS/MINERALS THERAP 1 TAB PO SCH (08:16)
[2023-08-07] MEDS: PARoxetine 20MG TABLET PO SCH (08:16)
[2023-08-07] MEDS: guaiFENesin ER TABLET 600 MG TAB PO SCH (08:17)
[2023-08-07] MEDS: ENOXAPARIN 40MG/0.4ML SYRINGE (J1650 PER 10MG) SC SCH (08:17)
[2023-08-07] MEDS: lamoTRIgine 100MG TAB PO SCH (08:17)
[2023-08-07] MEDS: FOLIC ACID 1MG TAB PO SCH (08:17)
[2023-08-07] MEDS: AUGMENTIN 875 MG TAB PO SCH (08:17)
[2023-08-07] MEDS ORDERED: POTASSIUM CHLORIDE 10MEQ SR TABLET PO ONE (09:00)
[2023-08-07] MEDS ORDERED: predniSONE 20 MG TAB PO SCH (09:00)
[2023-08-07] MEDS ORDERED: PRED20TA PO (11:11)
[2023-08-07] MEDS ORDERED: AMOX875T2 PO (11:11)
== END 2023-08-07 11:42 | disposition home or self-care (01) | DRG 720 ==
LOC: EDBD 20:51 → M ED 20:51 → M ED INP 08-05 02:26 → M ICU 08-05 04:31 → M MS4PR 08-06 18:07
PROVIDERS: ADMIT Family Medicine; ATTEND Student in an Organized Health Care Education/Training Program
DX: A41.9 Sepsis, unspecified organism (principal); J96.01 Acute respiratory failure with hypoxia; J18.9 Pneumonia, unspecified organism; J44.1 Chronic obstructive pulmonary disease with (acute) exacerbation; G35 Multiple sclerosis; R19.7 Diarrhea, unspecified; R73.9 Hyperglycemia, unspecified; G40.909 Epilepsy, unspecified, not intractable, without status epilepticus; I10 Essential (primary) hypertension; F31.9 Bipolar disorder, unspecified; Z88.2 Allergy status to sulfonamides; Z88.6 Allergy status to analgesic agent; Z88.8 Allergy status to other drugs, medicaments and biological substances; Z79.899 Other long term (current) drug therapy; F17.200 Nicotine dependence, unspecified, uncomplicated; Z79.52 Long term (current) use of systemic steroids; R65.20 Severe sepsis without septic shock

== ENCOUNTER 2023-11-10 16:44 | Inpatient (IN) | payer MEDICAID, OTHER, SELFPAY ==
[~2023-11-10] VITALS: Ht 152.4 cm; Wt 74.2 kg
[~2023-11-10 16:44] MED LIST changes: +ACAM0.05 PO; +ACET500T15 PO; +BELS1TAB2 PO; +CEFD1CAP9 PO; -CEFD300C41 PO; +ESOM20CA25 PO; -LUNE2TAB23 PO; +LUNE2TAB28 PO; +NITR100C2 PO
[2023-11-10] MEDS ORDERED: NS 1,000 ML IV ONE (17:15)
[2023-11-10] MEDS ORDERED: LIDOCAINE 2% 5ML JELLY UROJET TOP ONE ×2 (17:15→18:05)
[2023-11-10] MEDS ORDERED: ISOVUE-370 76% 100ML VIAL As Ordered ONE (17:22)
[2023-11-10] MEDS ORDERED: ALBUTEROL SULFATE 2.5MG/0.5ML INH NEB SOLN INH ONE (17:25)
[2023-11-10] MEDS ORDERED: IPRATROPIUM 0.5MG/ALBUTEROL 2.5MG INH SOL UD 3ML (DUONEB) NEB ONE (17:25)
[2023-11-10] MEDS ORDERED: methylPREDNISolone 125MG 2ML VIAL IV ONE (17:25)
[2023-11-10] MEDS ORDERED: SODIUM CHLORIDE 3% 100 ML IV ONE (17:35)
[2023-11-10 17:41] LABS: CK-MB VALUE MASS 7.7 NG/ML (<3.6)
[2023-11-10 17:42] LABS: ETHYL ALCOHOL (ETHANOL) < 0.003 % (0.000-0.010)
[2023-11-10 17:44] LABS: ALKALINE PHOSPHATASE 149 U/L (46-116); ALT/SGPT 46 U/L (7.0-40); AST/SGOT 101 U/L (<34); BILIRUBIN,DIRECT 1.2 MG/DL (<0.4); BILIRUBIN,TOTAL 2.4 MG/DL (0.3-1.2); BLOOD UREA NITROGEN 27 MG/DL (9-23); CALCIUM LEVEL 8.7 MG/DL (8.5-10.1); CARBON DIOXIDE LEVEL 32 MMOL/L (20-31); CHLORIDE LEVEL 66 MMOL/L (98-107); CPK CREATINE PHOSPHOKINASE 304 U/L (34-145); CREATININE FOR GFR 1.01 MG/DL (0.55-1.30); GLOMERULAR FILTRATION RATE > 60.0 (>51); GLUCOSE, FASTING 374 MG/DL (60-100); MB/CK RELATIVE INDEX 2.53 (< OR =4); OSMOLALITY SERUM 263 MOSM/KG (275-295); SALICYLATE LEVEL < 3.0 MG/DL (<30); TOTAL PROTEIN 6.5 G/DL (5.7-8.2)
[2023-11-10 17:45] LABS: THYROID STIMULATING HORMONE 4.275 uIU/ML (0.55-4.78)
[2023-11-10 17:53] LABS: POTASSIUM SERUM 1.9 MMOL/L (3.5-5.1); SODIUM LEVEL 114 MMOL/L (136-145)
[2023-11-10] MEDS ORDERED: POTASSIUM CHLORIDE 10MEQ SR TABLET PO ONE (17:55)
[2023-11-10] MEDS ORDERED: KCL 10MEQ/100ML SWI (KRUN) 10 MEQ in IV 1 EA IV ONE ×2 (17:55→18:10)
[2023-11-10 18:04] LABS: MAGNESIUM LEVEL 1.6 MG/DL (1.8-2.4)
[2023-11-10 18:10] LABS: RSV AMPLIFICATION NEGATIVE (NEGATIVE)
[2023-11-10] MEDS ORDERED: MAG SULF 1GM/100ML (MAG RUN) 1 GM in IV 1 EA IV ONE (18:10)
[2023-11-10 18:12] LABS: ABG BASE EXCESS 6.8 (-2.0-2.0); ABG HCO3 29.7 MMOL/L (22.0-26.0); ABG O2 SATURATION 92.6 % (95.0-99.0); ABG PARTIAL PRESSURE CO2 36.3 mmHg (35.0-45.0); ABG PARTIAL PRESSURE O2 61.7 mmHg (75.0-100.0); ABG STANDARD HCO3 30.5 MMOL/L. (22.0-26.0); ABG TOTAL CO2 30.8 MMOL/L (22.0-29.0)
[2023-11-10 18:19] LABS: BASO % 0.2 % (0.0-1.0); HEMATOCRIT 44.7 % (36.0-47.0); HEMOGLOBIN 16.8 g/dl (12.0-15.5); LYMPH # 1.3 10^3/uL (1.5-5.0); LYMPH % 11.8 % (24.0-44.0); MEAN CORPUSCULAR HEMOGLOBIN 32.5 pg (27.0-33.0); MEAN CORPUSCULAR VOLUME 86.5 fl (80.0-96.0); MONO # 1.9 10^3/uL (0.0-0.8); NEUTROPHILS # 7.5 10^3/uL (1.5-8.5); NEUTROPHILS % 69.3 % (36.0-66.0); RED BLOOD COUNT 5.17 10^6/uL (4.00-5.40); WHITE BLOOD COUNT 10.8 10^3/uL (4.0-10.0)
[2023-11-10 18:24] LABS: MEAN CORPUSCULAR HGB CONC 37.6 g/dl (32.0-36.5)
[2023-11-10] MEDS ORDERED: LORazepam 2 MG TAB PO PRN (19:15)
[2023-11-10] MEDS ORDERED: MED REC IN PROGRESS XX SCH (19:15)
[2023-11-10] MEDS ORDERED: THIAMINE 200MG 2ML VIAL IM ONE (19:15)
[2023-11-10 19:35] LABS: AMPHETAMINES LEVEL URINE NEGATIVE (NEGATIVE); BARBITURATES URINE NEGATIVE (NEGATIVE); CANNABINOIDS URINE NEGATIVE (NEGATIVE); COCAINE METABOLITE URINE NEGATIVE (NEGATIVE); METHADONE URINE NEGATIVE (NEGATIVE); OPIATES URINE NEGATIVE (NEGATIVE); PHENCYCLIDINE URINE NEGATIVE (NEGATIVE)
[2023-11-10 19:36] LABS: BENZODIAZEPINES URINE NEGATIVE (NEGATIVE)
[2023-11-10 19:38] LABS: CK-MB VALUE MASS 5.4 NG/ML (<3.6)
[2023-11-10 19:39] LABS: MB/CK RELATIVE INDEX 2.19 (< OR =4)
[2023-11-10] MEDS ORDERED: FOLIC ACID 1 MG in NS 50 ML IV ONE (21:00)
[2023-11-10] MEDS ORDERED: HOME MED LIST COMPLETE! XX SCH (21:05)
[2023-11-10 21:48] LABS: ALBUMIN 2.8 G/DL (3.2-5.2); ALKALINE PHOSPHATASE 128 U/L (46-116); ALT/SGPT 39 U/L (7.0-40); AST/SGOT 91 U/L (<34); BILIRUBIN,TOTAL 2.1 MG/DL (0.3-1.2); BLOOD UREA NITROGEN 23 MG/DL (9-23); CALCIUM LEVEL 7.6 MG/DL (8.5-10.1); CARBON DIOXIDE LEVEL 29 MMOL/L (20-31); CHLORIDE LEVEL 73 MMOL/L (98-107); CREATININE FOR GFR 0.73 MG/DL (0.55-1.30); GLOMERULAR FILTRATION RATE > 60.0 (>51); GLUCOSE, FASTING 388 MG/DL (60-100); MAGNESIUM LEVEL 1.4 MG/DL (1.8-2.4); POTASSIUM SERUM 1.8 MMOL/L (3.5-5.1); SODIUM LEVEL 116 MMOL/L (136-145); TOTAL PROTEIN 6.1 G/DL (5.7-8.2)
[2023-11-10 22:00] VITALS: BP 129/65; TEMP 100; O2SAT 94
[2023-11-10 23:00] VITALS: BP 112/68; O2SAT 93
[2023-11-10] MEDS: MAG SULF 1GM/100ML (MAG RUN) 1 GM in IV 1 EA IV SCH (23:21)
[2023-11-10] MEDS: KCL 20MEQ IN 100ML SWI (KRUN) 20 MEQ in IV 1 EA IV SCH ×2 (23:26)
[2023-11-11] VITALS (26 sets, daily range): BP systolic 86–112; BP diastolic 53–76; TEMP 97.3–99.2; O2SAT 87–98
[2023-11-11] MEDS: MAG SULF 1GM/100ML (MAG RUN) 1 GM in IV 1 EA IV SCH (00:15)
[2023-11-11] MEDS: KCL 20MEQ IN 100ML SWI (KRUN) 20 MEQ in IV 1 EA IV SCH ×2 (01:09)
[2023-11-11] MEDS ORDERED: KCL 20MEQ IN 100ML SWI (KRUN) 20 MEQ in IV 1 EA IV SCH ×2 (02:00)
[2023-11-11 03:59] LABS: BLOOD UREA NITROGEN 28 MG/DL (9-23); CALCIUM LEVEL 7.4 MG/DL (8.5-10.1); CARBON DIOXIDE LEVEL 30 MMOL/L (20-31); CHLORIDE LEVEL 71 MMOL/L (98-107); CREATININE FOR GFR 0.61 MG/DL (0.55-1.30); GLOMERULAR FILTRATION RATE > 60.0 (>51); GLUCOSE, FASTING 586 MG/DL (60-100); MAGNESIUM LEVEL 2.5 MG/DL (1.8-2.4); POTASSIUM SERUM 2.6 MMOL/L (3.5-5.1); SODIUM LEVEL 111 MMOL/L (136-145)
[2023-11-11] MEDS ORDERED: POTASSIUM CHLORIDE 10% LIQ 20MEQ/15ML UDC PO ONE ×2 (05:00→09:00)
[2023-11-11] MEDS ORDERED: SODIUM CHLORIDE 3% 500 ML IV SCH ×2 (05:00→10:00)
[2023-11-11 07:13] LABS: ALBUMIN 2.6 G/DL (3.2-5.2); ALKALINE PHOSPHATASE 124 U/L (46-116); ALT/SGPT 37 U/L (7.0-40); AST/SGOT 79 U/L (<34); BILIRUBIN,TOTAL 1.6 MG/DL (0.3-1.2); BLOOD UREA NITROGEN 29 MG/DL (9-23); CARBON DIOXIDE LEVEL 32 MMOL/L (20-31); CHLORIDE LEVEL 71 MMOL/L (98-107); CREATININE FOR GFR 0.59 MG/DL (0.55-1.30); GLOMERULAR FILTRATION RATE > 60.0 (>51); GLUCOSE, FASTING 567 MG/DL (60-100); POTASSIUM SERUM 2.8 MMOL/L (3.5-5.1); SODIUM LEVEL 112 MMOL/L (136-145); TOTAL PROTEIN 5.7 G/DL (5.7-8.2)
[2023-11-11 07:14] LABS: BLOOD UREA NITROGEN 30 MG/DL (9-23); CALCIUM LEVEL 7.9 MG/DL (8.5-10.1); CARBON DIOXIDE LEVEL 31 MMOL/L (20-31); CHLORIDE LEVEL 73 MMOL/L (98-107); GLOMERULAR FILTRATION RATE > 60.0 (>51); GLUCOSE, FASTING 569 MG/DL (60-100); POTASSIUM SERUM 2.8 MMOL/L (3.5-5.1); SODIUM LEVEL 113 MMOL/L (136-145)
[2023-11-11] MEDS ORDERED: GLUCOSE 4GM CHEW TABLET PO PRN (07:25)
[2023-11-11] MEDS ORDERED: DEXTROSE 50% 50ML SYRINGE IV PRN (07:25)
[2023-11-11] MEDS ORDERED: GLUCAGON INJ 1MG VIAL SC PRN (07:25)
[2023-11-11] MEDS: INSULIN LISPRO (NovoLOG) PER UNIT SC SCH ×4 (07:30→20:25)
[2023-11-11] MEDS ORDERED: INSULIN LISPRO (NovoLOG) PER UNIT SC ONE (08:00)
[2023-11-11] MEDS: KCL 40MEQ in NS 1000ML 1,000 ML IV SCH ×2 (10:08→23:47)
[2023-11-11 10:11] LABS: OSMOLALITY URINE 487 MOSM/KG (50-1400)
[2023-11-11 10:28] LABS: SODIUM,RANDOM URINE < 10 MMOL/L
[2023-11-11 11:12] LABS: BLOOD UREA NITROGEN 25 MG/DL (9-23); CALCIUM LEVEL 7.8 MG/DL (8.5-10.1); CARBON DIOXIDE LEVEL 36 MMOL/L (20-31); CHLORIDE LEVEL 77 MMOL/L (98-107); CREATININE FOR GFR 0.54 MG/DL (0.55-1.30); GLOMERULAR FILTRATION RATE > 60.0 (>51); GLUCOSE, FASTING 391 MG/DL (60-100); POTASSIUM SERUM 2.5 MMOL/L (3.5-5.1); SODIUM LEVEL 118 MMOL/L (136-145)
[2023-11-11] MEDS: ENOXAPARIN 40MG/0.4ML SYRINGE (J1650 PER 10MG) SC SCH (11:51)
[2023-11-11] MEDS: POTASSIUM CHLORIDE 10MEQ SR TABLET PO SCH ×3 (11:57→20:36)
[2023-11-11 13:13] LABS: PLATELET COUNT, AUTOMATED 143 10^3/uL (150-450)
[2023-11-11 15:57] LABS: HEMOGLOBIN A1c 8.2 % (4.0-6.0)
[2023-11-11 16:01] LABS: BLOOD UREA NITROGEN 21 MG/DL (9-23); CALCIUM LEVEL 7.9 MG/DL (8.5-10.1); CARBON DIOXIDE LEVEL 37 MMOL/L (20-31); CHLORIDE LEVEL 82 MMOL/L (98-107); CREATININE FOR GFR 0.44 MG/DL (0.55-1.30); GLOMERULAR FILTRATION RATE > 60.0 (>51); GLUCOSE, FASTING 181 MG/DL (60-100); POTASSIUM SERUM 2.7 MMOL/L (3.5-5.1); SODIUM LEVEL 123 MMOL/L (136-145)
[2023-11-11 19:33] LABS: BLOOD UREA NITROGEN 18 MG/DL (9-23); CALCIUM LEVEL 7.6 MG/DL (8.5-10.1); CARBON DIOXIDE LEVEL 37 MMOL/L (20-31); CHLORIDE LEVEL 83 MMOL/L (98-107); CREATININE FOR GFR 0.38 MG/DL (0.55-1.30); GLOMERULAR FILTRATION RATE > 60.0 (>51); GLUCOSE, FASTING 200 MG/DL (60-100); SODIUM LEVEL 121 MMOL/L (136-145)
[2023-11-11] MEDS ORDERED: KCL 20MEQ IN 100ML SWI (KRUN) 20 MEQ in IV 1 EA IV ONE ×2 (20:30)
[2023-11-11] MEDS ORDERED: KCL 10MEQ/100ML SWI (KRUN) 10 MEQ in IV 1 EA IV ONE (21:00)
[2023-11-11 22:29] LABS: VENOUS BASE EXCESS 12.8 (-2.0-2.0); VENOUS HCO3 37.2 MMOL/L (23.0-27.0); VENOUS O2 SATURATION 81.1 % (60.0-80.0); VENOUS PARTIAL PRESSURE CO2 45.8 mmHg (38.0-50.0); VENOUS PARTIAL PRESSURE O2 40.8 mmHg (30.0-50.0); VENOUS PH 7.527 UNITS (7.330-7.430); VENOUS STANDARD HCO3 36.2 MMOL/L; VENOUS TOTAL CO2 38.6 MMOL/L (24.0-28.0)
[2023-11-11 23:41] LABS: BLOOD UREA NITROGEN 19 MG/DL (9-23); CALCIUM LEVEL 7.7 MG/DL (8.5-10.1); CARBON DIOXIDE LEVEL 37 MMOL/L (20-31); CHLORIDE LEVEL 85 MMOL/L (98-107); CREATININE FOR GFR 0.38 MG/DL (0.55-1.30); GLOMERULAR FILTRATION RATE > 60.0 (>51); GLUCOSE, FASTING 199 MG/DL (60-100); POTASSIUM SERUM 3.5 MMOL/L (3.5-5.1); SODIUM LEVEL 124 MMOL/L (136-145)
[2023-11-12] VITALS (35 sets, daily range): BP systolic 88–123; BP diastolic 55–78; TEMP 97.3–99.3; O2SAT 86–100
[2023-11-12 03:16] LABS: BLOOD UREA NITROGEN 18 MG/DL (9-23); CALCIUM LEVEL 7.2 MG/DL (8.5-10.1); CARBON DIOXIDE LEVEL 36 MMOL/L (20-31); CHLORIDE LEVEL 87 MMOL/L (98-107); CREATININE FOR GFR 0.42 MG/DL (0.55-1.30); GLOMERULAR FILTRATION RATE > 60.0 (>51); GLUCOSE, FASTING 209 MG/DL (60-100); POTASSIUM SERUM 3.6 MMOL/L (3.5-5.1); SODIUM LEVEL 126 MMOL/L (136-145)
[2023-11-12] MEDS ORDERED: NS 1,000 ML IV ONE (04:20)
[2023-11-12 04:26] LABS: ABG BASE EXCESS 9.2 (-2.0-2.0); ABG HCO3 32.1 MMOL/L (22.0-26.0); ABG O2 SATURATION 86.6 % (95.0-99.0); ABG PARTIAL PRESSURE CO2 37.3 mmHg (35.0-45.0); ABG STANDARD HCO3 32.7 MMOL/L. (22.0-26.0); ABG TOTAL CO2 33.2 MMOL/L (22.0-29.0); ABG pH (ARTERIAL) 7.552 UNITS (7.350-7.450)
[2023-11-12 04:35] LABS: ABG PARTIAL PRESSURE O2 46.3 mmHg (75.0-100.0)
[2023-11-12 06:19] LABS: VENOUS BASE EXCESS 7.1 (-2.0-2.0); VENOUS HCO3 31.5 MMOL/L (23.0-27.0); VENOUS O2 SATURATION 70.5 % (60.0-80.0); VENOUS PARTIAL PRESSURE CO2 43.4 mmHg (38.0-50.0); VENOUS PARTIAL PRESSURE O2 33.5 mmHg (30.0-50.0); VENOUS PH 7.478 UNITS (7.330-7.430); VENOUS STANDARD HCO3 30.4 MMOL/L; VENOUS TOTAL CO2 32.8 MMOL/L (24.0-28.0)
[2023-11-12 06:36] LABS: BASO % 0.3 % (0.0-1.0); EOS % 0.1 % (0.0-3.0); LYMPH # 2.2 10^3/uL (1.5-5.0); LYMPH % 28.3 % (24.0-44.0); MEAN CORPUSCULAR HEMOGLOBIN 32.7 pg (27.0-33.0); MEAN CORPUSCULAR HGB CONC 35.4 g/dl (32.0-36.5); MEAN CORPUSCULAR VOLUME 92.5 fl (80.0-96.0); MONO # 1.5 10^3/uL (0.0-0.8); MONO % 18.9 % (2.0-8.0); NEUTROPHILS # 3.9 10^3/uL (1.5-8.5); NEUTROPHILS % 50.2 % (36.0-66.0); PLATELET COUNT, AUTOMATED 136 10^3/uL (150-450); RED BLOOD COUNT 3.33 10^6/uL (4.00-5.40); WHITE BLOOD COUNT 7.7 10^3/uL (4.0-10.0)
[2023-11-12 06:46] LABS: HEMATOCRIT 30.8 % (36.0-47.0); HEMOGLOBIN 10.9 g/dl (12.0-15.5)
[2023-11-12 07:06] LABS: BLOOD UREA NITROGEN 16 MG/DL (9-23); CALCIUM LEVEL 6.7 MG/DL (8.5-10.1); CARBON DIOXIDE LEVEL 32 MMOL/L (20-31); CHLORIDE LEVEL 92 MMOL/L (98-107); CREATININE FOR GFR 0.38 MG/DL (0.55-1.30); GLOMERULAR FILTRATION RATE > 60.0 (>51); GLUCOSE, FASTING 187 MG/DL (60-100); MAGNESIUM LEVEL 1.8 MG/DL (1.8-2.4); POTASSIUM SERUM 3.6 MMOL/L (3.5-5.1); SODIUM LEVEL 129 MMOL/L (136-145)
[2023-11-12 07:14] LABS: HEMOGLOBIN A1c 8.1 % (4.0-6.0)
[2023-11-12] MEDS: INSULIN LISPRO (NovoLOG) PER UNIT SC SCH ×4 (07:30→20:45)
[2023-11-12] MEDS: POTASSIUM CHLORIDE 10MEQ SR TABLET PO SCH (09:00)
[2023-11-12] MEDS ORDERED: AZITHROMYCIN 250MG TABLET PO SCH (09:00)
[2023-11-12] MEDS: cefTRIAXone SOD 2 GM in D5W MINI-BAG PLUS 50 ML IV SCH (09:03)
[2023-11-12] MEDS: ENOXAPARIN 40MG/0.4ML SYRINGE (J1650 PER 10MG) SC SCH (09:04)
[2023-11-12 09:54] LABS: SODIUM,RANDOM URINE 22 MMOL/L
[2023-11-12 09:58] LABS: OSMOLALITY URINE 598 MOSM/KG (50-1400)
[2023-11-12 11:31] LABS: BLOOD UREA NITROGEN 11 MG/DL (9-23); CALCIUM LEVEL 6.6 MG/DL (8.5-10.1); CARBON DIOXIDE LEVEL 32 MMOL/L (20-31); CHLORIDE LEVEL 94 MMOL/L (98-107); CREATININE FOR GFR 0.37 MG/DL (0.55-1.30); GLOMERULAR FILTRATION RATE > 60.0 (>51); GLUCOSE, FASTING 165 MG/DL (60-100); POTASSIUM SERUM 3.4 MMOL/L (3.5-5.1); SODIUM LEVEL 131 MMOL/L (136-145)
[2023-11-12 11:47] LABS: VENOUS BASE EXCESS 2.9 (-2.0-2.0); VENOUS HCO3 27.1 MMOL/L (23.0-27.0); VENOUS O2 SATURATION 87.1 % (60.0-80.0); VENOUS PARTIAL PRESSURE O2 51.6 mmHg (30.0-50.0); VENOUS PH 7.449 UNITS (7.330-7.430); VENOUS STANDARD HCO3 26.9 MMOL/L; VENOUS TOTAL CO2 28.3 MMOL/L (24.0-28.0)
[2023-11-12] MEDS: IPRATROPIUM 0.5MG/ALBUTEROL 2.5MG INH SOL UD 3ML (DUONEB) NEB SCH ×2 (13:18→20:38)
[2023-11-12] MEDS: KCL 40MEQ in NS 1000ML 1,000 ML IV SCH (13:43)
[2023-11-12 15:27] LABS: BLOOD UREA NITROGEN 10 MG/DL (9-23); CALCIUM LEVEL 6.7 MG/DL (8.5-10.1); CARBON DIOXIDE LEVEL 31 MMOL/L (20-31); CHLORIDE LEVEL 96 MMOL/L (98-107); CREATININE FOR GFR 0.36 MG/DL (0.55-1.30); GLOMERULAR FILTRATION RATE > 60.0 (>51); GLUCOSE, FASTING 152 MG/DL (60-100); POTASSIUM SERUM 3.2 MMOL/L (3.5-5.1); SODIUM LEVEL 132 MMOL/L (136-145)
[2023-11-12 19:37] LABS: BLOOD UREA NITROGEN 9 MG/DL (9-23); CALCIUM LEVEL 6.8 MG/DL (8.5-10.1); CARBON DIOXIDE LEVEL 31 MMOL/L (20-31); CHLORIDE LEVEL 96 MMOL/L (98-107); CREATININE FOR GFR 0.31 MG/DL (0.55-1.30); GLOMERULAR FILTRATION RATE > 60.0 (>51); GLUCOSE, FASTING 174 MG/DL (60-100); POTASSIUM SERUM 3.1 MMOL/L (3.5-5.1); SODIUM LEVEL 130 MMOL/L (136-145)
[2023-11-12] MEDS ORDERED: KCL 20MEQ IN 100ML SWI (KRUN) 20 MEQ in IV 1 EA IV ONE ×2 (21:00)
[2023-11-12] MEDS ORDERED: AZITHROMYCIN INJ 500 MG, VIAL MATE ADAPTER 1 EACH in NS 250 ML IV SCH (21:00)
[2023-11-12 23:26] LABS: BLOOD UREA NITROGEN 8 MG/DL (9-23); CALCIUM LEVEL 6.6 MG/DL (8.5-10.1); CARBON DIOXIDE LEVEL 29 MMOL/L (20-31); CHLORIDE LEVEL 98 MMOL/L (98-107); GLOMERULAR FILTRATION RATE > 60.0 (>51); GLUCOSE, FASTING 209 MG/DL (60-100); POTASSIUM SERUM 3.3 MMOL/L (3.5-5.1); SODIUM LEVEL 131 MMOL/L (136-145)
[2023-11-13] VITALS (11 sets, daily range): BP systolic 87–112; BP diastolic 54–75; TEMP 97.5–100.9; O2SAT 94–100
[2023-11-13] MEDS ORDERED: KCL 20MEQ IN 100ML SWI (KRUN) 20 MEQ in IV 1 EA IV ONE ×2
[2023-11-13] MEDS: IPRATROPIUM 0.5MG/ALBUTEROL 2.5MG INH SOL UD 3ML (DUONEB) NEB SCH ×4 (01:17→19:58)
[2023-11-13 04:15] LABS: BASO % 0.2 % (0.0-1.0); EOS # 0.1 10^3/uL (0.0-0.5); EOS % 0.8 % (0.0-3.0); HEMATOCRIT 28.1 % (36.0-47.0); HEMOGLOBIN 9.9 g/dl (12.0-15.5); LYMPH # 2.4 10^3/uL (1.5-5.0); LYMPH % 27.2 % (24.0-44.0); MEAN CORPUSCULAR HEMOGLOBIN 33.2 pg (27.0-33.0); MEAN CORPUSCULAR HGB CONC 35.2 g/dl (32.0-36.5); MEAN CORPUSCULAR VOLUME 94.3 fl (80.0-96.0); MONO # 1.4 10^3/uL (0.0-0.8); MONO % 15.3 % (2.0-8.0); NEUTROPHILS # 4.6 10^3/uL (1.5-8.5); PLATELET COUNT, AUTOMATED 162 10^3/uL (150-450); RED BLOOD COUNT 2.98 10^6/uL (4.00-5.40); WHITE BLOOD COUNT 8.9 10^3/uL (4.0-10.0)
[2023-11-13] MEDS: KCL 40MEQ in NS 1000ML 1,000 ML IV SCH (04:29)
[2023-11-13 04:38] LABS: BLOOD UREA NITROGEN 5 MG/DL (9-23); CALCIUM LEVEL 6.5 MG/DL (8.5-10.1); CARBON DIOXIDE LEVEL 30 MMOL/L (20-31); CHLORIDE LEVEL 100 MMOL/L (98-107); GLOMERULAR FILTRATION RATE > 60.0 (>51); GLUCOSE, FASTING 136 MG/DL (60-100); MAGNESIUM LEVEL 1.5 MG/DL (1.8-2.4); POTASSIUM SERUM 3.5 MMOL/L (3.5-5.1); SODIUM LEVEL 133 MMOL/L (136-145)
[2023-11-13] MEDS ORDERED: MAG SULF 1GM/100ML (MAG RUN) 1 GM in IV 1 EA IV ONE (06:00)
[2023-11-13] MEDS: INSULIN LISPRO (NovoLOG) PER UNIT SC SCH ×4 (08:10→20:40)
[2023-11-13] MEDS: cefTRIAXone SOD 2 GM in D5W MINI-BAG PLUS 50 ML IV SCH (08:10)
[2023-11-13] MEDS: ENOXAPARIN 40MG/0.4ML SYRINGE (J1650 PER 10MG) SC SCH (08:11)
[2023-11-13 10:36] LABS: SODIUM,RANDOM URINE 87 MMOL/L
[2023-11-13 10:42] LABS: OSMOLALITY URINE 369 MOSM/KG (50-1400)
[2023-11-13] MEDS: AZITHROMYCIN 250MG TABLET PO SCH (20:47)
[2023-11-14] VITALS (7 sets, daily range): BP systolic 91–134; BP diastolic 56–83; TEMP 97.2–98.6; O2SAT 95–98
[2023-11-14] MEDS: IPRATROPIUM 0.5MG/ALBUTEROL 2.5MG INH SOL UD 3ML (DUONEB) NEB SCH ×2 (01:20→08:16)
[2023-11-14 04:12] LABS: HEMATOCRIT 27.7 % (36.0-47.0); HEMOGLOBIN 9.8 g/dl (12.0-15.5); MEAN CORPUSCULAR HEMOGLOBIN 33.8 pg (27.0-33.0); MEAN CORPUSCULAR HGB CONC 35.4 g/dl (32.0-36.5); MEAN CORPUSCULAR VOLUME 95.5 fl (80.0-96.0); PLATELET COUNT, AUTOMATED 204 10^3/uL (150-450); WHITE BLOOD COUNT 11.2 10^3/uL (4.0-10.0)
[2023-11-14 04:48] LABS: BLOOD UREA NITROGEN < 5 MG/DL (9-23); CALCIUM LEVEL 6.9 MG/DL (8.5-10.1); CARBON DIOXIDE LEVEL 31 MMOL/L (20-31); CHLORIDE LEVEL 99 MMOL/L (98-107); CREATININE FOR GFR 0.29 MG/DL (0.55-1.30); GLOMERULAR FILTRATION RATE > 60.0 (>51); GLUCOSE, FASTING 145 MG/DL (60-100); MAGNESIUM LEVEL 1.6 MG/DL (1.8-2.4); POTASSIUM SERUM 3.2 MMOL/L (3.5-5.1); SODIUM LEVEL 132 MMOL/L (136-145)
[2023-11-14 05:25] LABS: ATYPICAL LYMPH 5 % (0-5); EOSINOPHILS 1 % (0-3); LYMPHOCYTES 19 % (16-44); MONOCYTES 8 % (0-5); NEUTROPHILS 67 % (28-66); PLATELET ESTIMATE NORMAL (NORMAL)
[2023-11-14 05:26] LABS: HYPOCHROMASIA 1+
[2023-11-14] MEDS: KCL 20MEQ IN 100ML SWI (KRUN) 20 MEQ in IV 1 EA IV SCH ×4 (05:58→07:21)
[2023-11-14] MEDS ORDERED: MAG SULF 1GM/100ML (MAG RUN) 1 GM in IV 1 EA IV ONE (06:00)
[2023-11-14] MEDS: INSULIN LISPRO (NovoLOG) PER UNIT SC SCH ×4 (07:20→20:01)
[2023-11-14] MEDS: cefTRIAXone SOD 2 GM in D5W MINI-BAG PLUS 50 ML IV SCH (07:21)
[2023-11-14] MEDS: SYMBICORT 80/4.5MCG INHALER 6GM INH SCH ×2 (08:00→20:00)
[2023-11-14] MEDS: ENOXAPARIN 40MG/0.4ML SYRINGE (J1650 PER 10MG) SC SCH (08:38)
[2023-11-14] MEDS ORDERED: FUROSEMIDE 10MG PER 1/2 TABLET PO SCH (09:00)
[2023-11-14] MEDS ORDERED: NEOSPORIN TOP OINT 15GM TOP STA (09:16)
[2023-11-14] MEDS ORDERED: ALBUTEROL 90 MCG/ACT 8GM HFA INHALER INH PRN (10:15)
[2023-11-14] MEDS ORDERED: IPRATROPIUM 0.5MG/ALBUTEROL 2.5MG INH SOL UD 3ML (DUONEB) NEB PRN (10:20)
[2023-11-14] MEDS: SODIUM CHLORIDE 1 GM TAB PO SCH ×3 (10:25→20:14)
[2023-11-14] MEDS: lamoTRIgine 25MG TAB PO SCH ×2 (11:40→20:14)
[2023-11-14] MEDS: lamoTRIgine 100MG TAB PO SCH ×2 (11:40→20:15)
[2023-11-14] MEDS: PARoxetine 20MG TABLET PO SCH (11:41)
[2023-11-14] MEDS: MULTIVITAMINS/MINERALS THERAP 1 TAB PO SCH (11:41)
[2023-11-14] MEDS: PANTOPRAZOLE 40MG TAB (PROTONIX) PO SCH (11:41)
[2023-11-14] MEDS: FOLIC ACID 1MG TAB PO SCH (11:41)
[2023-11-14] MEDS: ACETAMINOPHEN TAB 650MG DOSE (2X325MG) PO PRN (12:01)
[2023-11-14] MEDS ORDERED: THIAMINE 200MG 2ML VIAL IV ONE (19:00)
[2023-11-14] MEDS: MONTELUKAST 10 MG TAB PO SCH (20:14)
[2023-11-14] MEDS: AZITHROMYCIN 250MG TABLET PO SCH (20:15)
[2023-11-14] MEDS: clonazePAM 0.5 MG TAB PO PRN (20:19)
[2023-11-15 04:50] VITALS: BP 133/84; TEMP 97.7; O2SAT 94
[2023-11-15 06:28] LABS: HEMOGLOBIN 10.4 g/dl (12.0-15.5); MEAN CORPUSCULAR HGB CONC 34.7 g/dl (32.0-36.5); MEAN CORPUSCULAR VOLUME 95.2 fl (80.0-96.0); PLATELET COUNT, AUTOMATED 262 10^3/uL (150-450); RED BLOOD COUNT 3.15 10^6/uL (4.00-5.40); WHITE BLOOD COUNT 7.8 10^3/uL (4.0-10.0)
[2023-11-15 07:00] LABS: BASOPHILS 1 % (0-1); LYMPHOCYTES 22 % (16-44); METAMYELOCYTES 2 % (0-0); MONOCYTES 6 % (0-5); NEUTROPHILS 64 % (28-66)
[2023-11-15 07:02] LABS: ANISOCYTOSIS 1+; POLYCHROMASIA 1+
[2023-11-15 07:03] LABS: PLATELET ESTIMATE NORMAL (NORMAL); SMUDGE CELLS 1+
[2023-11-15 07:08] LABS: BLOOD UREA NITROGEN < 5 MG/DL (9-23); CALCIUM LEVEL 7.3 MG/DL (8.5-10.1); CARBON DIOXIDE LEVEL 28 MMOL/L (20-31); CHLORIDE LEVEL 100 MMOL/L (98-107); CREATININE FOR GFR 0.25 MG/DL (0.55-1.30); GLOMERULAR FILTRATION RATE > 60.0 (>51); GLUCOSE, FASTING 171 MG/DL (60-100); MAGNESIUM LEVEL 1.5 MG/DL (1.8-2.4); POTASSIUM SERUM 2.9 MMOL/L (3.5-5.1); SODIUM LEVEL 132 MMOL/L (136-145)
[2023-11-15] MEDS ORDERED: POTASSIUM CHLORIDE 10MEQ SR TABLET PO ONE (07:15)
[2023-11-15] MEDS ORDERED: MAG SULF 1GM/100ML (MAG RUN) 1 GM in IV 1 EA IV ONE (07:15)
[2023-11-15] MEDS: INSULIN LISPRO (NovoLOG) PER UNIT SC SCH ×4 (07:30→20:33)
[2023-11-15] MEDS: SYMBICORT 80/4.5MCG INHALER 6GM INH SCH ×2 (07:53→20:45)
[2023-11-15] MEDS: ONDANSETRON 4MG ORAL DISINTEGRATING TAB PO PRN (08:14)
[2023-11-15] MEDS: cefTRIAXone SOD 2 GM in D5W MINI-BAG PLUS 50 ML IV SCH (08:59)
[2023-11-15] MEDS: THIAMINE 100 MG TAB PO SCH (09:00)
[2023-11-15] MEDS: FOLIC ACID 1MG TAB PO SCH (09:00)
[2023-11-15] MEDS: MULTIVITAMINS/MINERALS THERAP 1 TAB PO SCH (09:00)
[2023-11-15] MEDS: lamoTRIgine 25MG TAB PO SCH ×2 (09:00→20:38)
[2023-11-15] MEDS: PARoxetine 20MG TABLET PO SCH (09:00)
[2023-11-15] MEDS: PANTOPRAZOLE 40MG TAB (PROTONIX) PO SCH (09:00)
[2023-11-15] MEDS: ENOXAPARIN 40MG/0.4ML SYRINGE (J1650 PER 10MG) SC SCH (09:00)
[2023-11-15] MEDS: SODIUM CHLORIDE 1 GM TAB PO SCH ×3 (09:00→20:38)
[2023-11-15] MEDS: lamoTRIgine 100MG TAB PO SCH ×2 (09:00→20:38)
[2023-11-15] MEDS: KCL 10MEQ/100ML SWI (KRUN) 10 MEQ in IV 1 EA IV SCH ×2 (11:31→14:01)
[2023-11-15 14:00] VITALS: BP 108/65; TEMP 97.5; O2SAT 91
[2023-11-15 20:30] VITALS: BP 123/78; TEMP 97.7; O2SAT 99
[2023-11-15] MEDS: MONTELUKAST 10 MG TAB PO SCH (20:38)
[2023-11-15] MEDS: clonazePAM 0.5 MG TAB PO PRN (20:40)
[2023-11-16 04:50] VITALS: BP 117/73; TEMP 97.3; O2SAT 97
[2023-11-16 06:31] LABS: BASO % 0.3 % (0.0-1.0); EOS # 0.1 10^3/uL (0.0-0.5); EOS % 2.2 % (0.0-3.0); HEMATOCRIT 29.7 % (36.0-47.0); LYMPH # 2.4 10^3/uL (1.5-5.0); LYMPH % 37.8 % (24.0-44.0); MEAN CORPUSCULAR HEMOGLOBIN 33.1 pg (27.0-33.0); MEAN CORPUSCULAR HGB CONC 33.7 g/dl (32.0-36.5); MEAN CORPUSCULAR VOLUME 98.3 fl (80.0-96.0); MONO # 0.6 10^3/uL (0.0-0.8); MONO % 9.1 % (2.0-8.0); NEUTROPHILS # 3.1 10^3/uL (1.5-8.5); NEUTROPHILS % 47.8 % (36.0-66.0); PLATELET COUNT, AUTOMATED 298 10^3/uL (150-450); RED BLOOD COUNT 3.02 10^6/uL (4.00-5.40); WHITE BLOOD COUNT 6.5 10^3/uL (4.0-10.0)
[2023-11-16 06:52] LABS: BLOOD UREA NITROGEN < 5 MG/DL (9-23); CALCIUM LEVEL 7.3 MG/DL (8.5-10.1); CARBON DIOXIDE LEVEL 28 MMOL/L (20-31); CHLORIDE LEVEL 105 MMOL/L (98-107); CREATININE FOR GFR 0.32 MG/DL (0.55-1.30); GLOMERULAR FILTRATION RATE > 60.0 (>51); GLUCOSE, FASTING 128 MG/DL (60-100); MAGNESIUM LEVEL 1.7 MG/DL (1.8-2.4); POTASSIUM SERUM 3.6 MMOL/L (3.5-5.1); SODIUM LEVEL 137 MMOL/L (136-145)
[2023-11-16] MEDS: ONDANSETRON 4MG ORAL DISINTEGRATING TAB PO PRN (07:19)
[2023-11-16] MEDS ORDERED: MAGNESIUM OXIDE 400MG TAB (MAG-OX) PO ONE (07:40)
[2023-11-16] MEDS: SYMBICORT 80/4.5MCG INHALER 6GM INH SCH ×2 (07:58→19:57)
[2023-11-16] MEDS: cefTRIAXone SOD 2 GM in D5W MINI-BAG PLUS 50 ML IV SCH (08:36)
[2023-11-16] MEDS: INSULIN LISPRO (NovoLOG) PER UNIT SC SCH ×4 (08:36→20:33)
[2023-11-16] MEDS: FOLIC ACID 1MG TAB PO SCH (08:37)
[2023-11-16] MEDS: lamoTRIgine 100MG TAB PO SCH ×2 (08:37→20:31)
[2023-11-16] MEDS: SODIUM CHLORIDE 1 GM TAB PO SCH ×3 (08:37→20:31)
[2023-11-16] MEDS: lamoTRIgine 25MG TAB PO SCH ×2 (08:37→20:30)
[2023-11-16] MEDS: ENOXAPARIN 40MG/0.4ML SYRINGE (J1650 PER 10MG) SC SCH (08:37)
[2023-11-16] MEDS: PANTOPRAZOLE 40MG TAB (PROTONIX) PO SCH (08:37)
[2023-11-16] MEDS: MULTIVITAMINS/MINERALS THERAP 1 TAB PO SCH (08:37)
[2023-11-16] MEDS: THIAMINE 100 MG TAB PO SCH (08:37)
[2023-11-16] MEDS: PARoxetine 20MG TABLET PO SCH (08:38)
[2023-11-16 14:00] VITALS: BP 107/64; TEMP 97.7; O2SAT 98
[2023-11-16] MEDS: MONTELUKAST 10 MG TAB PO SCH (20:31)
[2023-11-16] MEDS: clonazePAM 0.5 MG TAB PO PRN (20:32)
[2023-11-16 21:11] VITALS: BP 123/86; TEMP 97.8; O2SAT 98
[2023-11-17 05:28] VITALS: BP 132/79; TEMP 98; O2SAT 96
[2023-11-17 06:00] LABS: BASO % 0.5 % (0.0-1.0); EOS # 0.1 10^3/uL (0.0-0.5); EOS % 1.8 % (0.0-3.0); HEMATOCRIT 29.9 % (36.0-47.0); HEMOGLOBIN 9.8 g/dl (12.0-15.5); LYMPH # 2.6 10^3/uL (1.5-5.0); LYMPH % 39.6 % (24.0-44.0); MEAN CORPUSCULAR HEMOGLOBIN 33.2 pg (27.0-33.0); MEAN CORPUSCULAR HGB CONC 32.8 g/dl (32.0-36.5); MEAN CORPUSCULAR VOLUME 101.4 fl (80.0-96.0); MONO # 0.6 10^3/uL (0.0-0.8); MONO % 9.6 % (2.0-8.0); NEUTROPHILS # 3.1 10^3/uL (1.5-8.5); PLATELET COUNT, AUTOMATED 347 10^3/uL (150-450); RED BLOOD COUNT 2.95 10^6/uL (4.00-5.40); WHITE BLOOD COUNT 6.6 10^3/uL (4.0-10.0)
[2023-11-17 06:21] LABS: BLOOD UREA NITROGEN < 5 MG/DL (9-23); CALCIUM LEVEL 7.5 MG/DL (8.5-10.1); CARBON DIOXIDE LEVEL 26 MMOL/L (20-31); CHLORIDE LEVEL 108 MMOL/L (98-107); CREATININE FOR GFR 0.35 MG/DL (0.55-1.30); GLOMERULAR FILTRATION RATE > 60.0 (>51); GLUCOSE, FASTING 119 MG/DL (60-100); POTASSIUM SERUM 3.7 MMOL/L (3.5-5.1); SODIUM LEVEL 138 MMOL/L (136-145)
[2023-11-17] MEDS: SYMBICORT 80/4.5MCG INHALER 6GM INH SCH ×2 (07:38→19:22)
[2023-11-17] MEDS: INSULIN LISPRO (NovoLOG) PER UNIT SC SCH ×4 (08:33→20:50)
[2023-11-17] MEDS: MULTIVITAMINS/MINERALS THERAP 1 TAB PO SCH (08:34)
[2023-11-17] MEDS: FOLIC ACID 1MG TAB PO SCH (08:34)
[2023-11-17] MEDS: THIAMINE 100 MG TAB PO SCH (08:34)
[2023-11-17] MEDS: PANTOPRAZOLE 40MG TAB (PROTONIX) PO SCH (08:34)
[2023-11-17] MEDS: SODIUM CHLORIDE 1 GM TAB PO SCH ×3 (08:34→21:05)
[2023-11-17] MEDS: PARoxetine 20MG TABLET PO SCH (08:34)
[2023-11-17] MEDS: lamoTRIgine 100MG TAB PO SCH ×2 (08:34→21:05)
[2023-11-17] MEDS: ENOXAPARIN 40MG/0.4ML SYRINGE (J1650 PER 10MG) SC SCH (08:34)
[2023-11-17] MEDS: lamoTRIgine 25MG TAB PO SCH ×2 (08:34→21:05)
[2023-11-17 09:18] LABS: VITAMIN B12 LEVEL 1910 PG/ML (211-911)
[2023-11-17 14:00] VITALS: BP 120/68; TEMP 98.3; O2SAT 97
[2023-11-17 20:00] VITALS: BP 134/87; TEMP 97.5; O2SAT 98
[2023-11-17] MEDS: clonazePAM 0.5 MG TAB PO PRN (21:05)
[2023-11-17] MEDS: MONTELUKAST 10 MG TAB PO SCH (21:05)
[2023-11-18 06:00] VITALS: BP 124/75; TEMP 99; O2SAT 99
[2023-11-18] MEDS: SYMBICORT 80/4.5MCG INHALER 6GM INH SCH ×2 (07:55→20:00)
[2023-11-18] MEDS ORDERED: FLUTICASONE PROP 0.05% NASAL SPRAY 16 GM (FLONASE) NARES SCH (09:00)
[2023-11-18] MEDS: THIAMINE 100 MG TAB PO SCH (09:27)
[2023-11-18] MEDS: PANTOPRAZOLE 40MG TAB (PROTONIX) PO SCH (09:27)
[2023-11-18] MEDS: MULTIVITAMINS/MINERALS THERAP 1 TAB PO SCH (09:27)
[2023-11-18] MEDS: SODIUM CHLORIDE 1 GM TAB PO SCH ×3 (09:27→20:41)
[2023-11-18] MEDS: ENOXAPARIN 40MG/0.4ML SYRINGE (J1650 PER 10MG) SC SCH (09:27)
[2023-11-18] MEDS: FOLIC ACID 1MG TAB PO SCH (09:27)
[2023-11-18] MEDS: ONDANSETRON 4MG ORAL DISINTEGRATING TAB PO PRN ×2 (09:28→20:45)
[2023-11-18] MEDS: PARoxetine 20MG TABLET PO SCH (09:28)
[2023-11-18] MEDS: lamoTRIgine 100MG TAB PO SCH ×2 (09:28→20:41)
[2023-11-18] MEDS: lamoTRIgine 25MG TAB PO SCH ×2 (09:28→20:41)
[2023-11-18] MEDS: INSULIN LISPRO (NovoLOG) PER UNIT SC SCH ×4 (09:42→20:21)
[2023-11-18 12:00] VITALS: BP 148/95; TEMP 97.2; O2SAT 99
[2023-11-18 14:00] VITALS: BP 117/76; TEMP 97.5; O2SAT 99
[2023-11-18 19:52] VITALS: BP 142/91; TEMP 98.1; O2SAT 98
[2023-11-18] MEDS: MONTELUKAST 10 MG TAB PO SCH (20:41)
[2023-11-18] MEDS: clonazePAM 0.5 MG TAB PO PRN (20:42)
[2023-11-19 05:08] VITALS: BP 141/67; TEMP 97.9; O2SAT 96
[2023-11-19] MEDS: INSULIN LISPRO (NovoLOG) PER UNIT SC SCH ×4 (07:30→20:15)
[2023-11-19] MEDS: SYMBICORT 80/4.5MCG INHALER 6GM INH SCH ×2 (08:16→20:36)
[2023-11-19] MEDS: SODIUM CHLORIDE 1 GM TAB PO SCH ×3 (09:58→20:14)
[2023-11-19] MEDS: THIAMINE 100 MG TAB PO SCH (09:58)
[2023-11-19] MEDS: FOLIC ACID 1MG TAB PO SCH (09:58)
[2023-11-19] MEDS: lamoTRIgine 100MG TAB PO SCH ×2 (09:58→20:14)
[2023-11-19] MEDS: MULTIVITAMINS/MINERALS THERAP 1 TAB PO SCH (09:58)
[2023-11-19] MEDS: ENOXAPARIN 40MG/0.4ML SYRINGE (J1650 PER 10MG) SC SCH (09:58)
[2023-11-19] MEDS: lamoTRIgine 25MG TAB PO SCH ×2 (09:58→20:14)
[2023-11-19] MEDS: PANTOPRAZOLE 40MG TAB (PROTONIX) PO SCH (09:58)
[2023-11-19] MEDS: PARoxetine 20MG TABLET PO SCH (09:58)
[2023-11-19 14:00] VITALS: BP 115/70; TEMP 96.3; O2SAT 96
[2023-11-19 18:54] VITALS: BP 126/71; TEMP 98.1; O2SAT 97
[2023-11-19] MEDS: clonazePAM 0.5 MG TAB PO PRN (20:14)
[2023-11-19] MEDS: ONDANSETRON 4MG ORAL DISINTEGRATING TAB PO PRN (20:14)
[2023-11-19] MEDS: MONTELUKAST 10 MG TAB PO SCH (20:14)
[2023-11-20 06:00] VITALS: BP 109/55; TEMP 97.7; O2SAT 95
[2023-11-20] MEDS: INSULIN LISPRO (NovoLOG) PER UNIT SC SCH ×4 (07:30→21:02)
[2023-11-20] MEDS: SYMBICORT 80/4.5MCG INHALER 6GM INH SCH ×2 (09:07→19:40)
[2023-11-20] MEDS: ONDANSETRON 4MG ORAL DISINTEGRATING TAB PO PRN ×2 (09:41→18:03)
[2023-11-20] MEDS: MULTIVITAMINS/MINERALS THERAP 1 TAB PO SCH (09:41)
[2023-11-20] MEDS: PARoxetine 20MG TABLET PO SCH (09:41)
[2023-11-20] MEDS: ENOXAPARIN 40MG/0.4ML SYRINGE (J1650 PER 10MG) SC SCH (09:41)
[2023-11-20] MEDS: lamoTRIgine 25MG TAB PO SCH ×2 (09:41→21:18)
[2023-11-20] MEDS: PANTOPRAZOLE 40MG TAB (PROTONIX) PO SCH (09:42)
[2023-11-20] MEDS: SODIUM CHLORIDE 1 GM TAB PO SCH ×3 (09:42→21:18)
[2023-11-20] MEDS: THIAMINE 100 MG TAB PO SCH (09:42)
[2023-11-20] MEDS: lamoTRIgine 100MG TAB PO SCH ×2 (09:42→21:18)
[2023-11-20] MEDS: FOLIC ACID 1MG TAB PO SCH (09:42)
[2023-11-20] MEDS: ACETAMINOPHEN TAB 650MG DOSE (2X325MG) PO PRN ×2 (11:48→21:22)
[2023-11-20] MEDS: MONTELUKAST 10 MG TAB PO SCH (21:18)
[2023-11-20] MEDS: clonazePAM 0.5 MG TAB PO PRN (21:18)
[2023-11-21 05:40] VITALS: BP 119/67; TEMP 97.3; O2SAT 97
[2023-11-21] MEDS: INSULIN LISPRO (NovoLOG) PER UNIT SC SCH ×4 (07:30→21:00)
[2023-11-21] MEDS: SYMBICORT 80/4.5MCG INHALER 6GM INH SCH ×2 (07:57→21:09)
[2023-11-21] MEDS: ONDANSETRON 4MG ORAL DISINTEGRATING TAB PO PRN ×2 (09:11→21:09)
[2023-11-21] MEDS: SODIUM CHLORIDE 1 GM TAB PO SCH ×3 (09:16→21:08)
[2023-11-21] MEDS: MULTIVITAMINS/MINERALS THERAP 1 TAB PO SCH (09:16)
[2023-11-21] MEDS: PARoxetine 20MG TABLET PO SCH (09:16)
[2023-11-21] MEDS: FOLIC ACID 1MG TAB PO SCH (09:16)
[2023-11-21] MEDS: PANTOPRAZOLE 40MG TAB (PROTONIX) PO SCH (09:16)
[2023-11-21] MEDS: lamoTRIgine 25MG TAB PO SCH ×2 (09:16→21:09)
[2023-11-21] MEDS: lamoTRIgine 100MG TAB PO SCH ×2 (09:16→21:09)
[2023-11-21] MEDS: THIAMINE 100 MG TAB PO SCH (09:16)
[2023-11-21] MEDS: ENOXAPARIN 40MG/0.4ML SYRINGE (J1650 PER 10MG) SC SCH (09:17)
[2023-11-21] MEDS: ACETAMINOPHEN TAB 650MG DOSE (2X325MG) PO PRN (09:17)
[2023-11-21] MEDS: SENOKOT S TAB PO SCH ×2 (14:11→21:00)
[2023-11-21] MEDS: clonazePAM 0.5 MG TAB PO PRN (21:09)
[2023-11-21] MEDS: MONTELUKAST 10 MG TAB PO SCH (21:09)
[2023-11-22 05:14] VITALS: BP 127/65; TEMP 97.5; O2SAT 97
[2023-11-22] MEDS ORDERED: METF500T13 PO (06:51)
[2023-11-22] MEDS: INSULIN LISPRO (NovoLOG) PER UNIT SC SCH (07:30)
[2023-11-22] MEDS: SYMBICORT 80/4.5MCG INHALER 6GM INH SCH (07:39)
[2023-11-22] MEDS: ENOXAPARIN 40MG/0.4ML SYRINGE (J1650 PER 10MG) SC SCH (09:35)
[2023-11-22] MEDS: MULTIVITAMINS/MINERALS THERAP 1 TAB PO SCH (09:35)
[2023-11-22] MEDS: lamoTRIgine 25MG TAB PO SCH (09:35)
[2023-11-22] MEDS: FOLIC ACID 1MG TAB PO SCH (09:35)
[2023-11-22] MEDS: SENOKOT S TAB PO SCH (09:35)
[2023-11-22] MEDS: THIAMINE 100 MG TAB PO SCH (09:35)
[2023-11-22] MEDS: PANTOPRAZOLE 40MG TAB (PROTONIX) PO SCH (09:35)
[2023-11-22] MEDS: PARoxetine 20MG TABLET PO SCH (09:35)
[2023-11-22] MEDS: SODIUM CHLORIDE 1 GM TAB PO SCH (09:35)
[2023-11-22] MEDS: lamoTRIgine 100MG TAB PO SCH (09:36)
== END 2023-11-22 11:36 | DRG 720 ==
LOC: M ED 16:44 → M ED INP 19:09 → ENRESERV 20:17 → M ICU 20:57 → M MSPAV 11-14 10:30
PROVIDERS: ADMIT Internal Medicine Pulmonary Disease; ATTEND Student in an Organized Health Care Education/Training Program
PROC: 05HM33Z Insertion of Infusion Device into Right Internal Jugular Vein, Percutaneous Approach (ICD-10-PCS; principal; 2023-11-10)
DX: A41.9 Sepsis, unspecified organism (principal); J96.01 Acute respiratory failure with hypoxia; G93.41 Metabolic encephalopathy; E87.4 Mixed disorder of acid-base balance; E72.20 Disorder of urea cycle metabolism, unspecified; E87.20 Acidosis, unspecified; E11.22 Type 2 diabetes mellitus with diabetic chronic kidney disease; E83.42 Hypomagnesemia; G35 Multiple sclerosis; E87.1 Hypo-osmolality and hyponatremia; E11.65 Type 2 diabetes mellitus with hyperglycemia; D64.9 Anemia, unspecified; F10.10 Alcohol abuse, uncomplicated; I10 Essential (primary) hypertension; J44.9 Chronic obstructive pulmonary disease, unspecified; N39.0 Urinary tract infection, site not specified; E87.6 Hypokalemia; B96.20 Unspecified Escherichia coli [E. coli] as the cause of diseases classified elsewhere; R91.1 Solitary pulmonary nodule; Z88.2 Allergy status to sulfonamides; Z88.8 Allergy status to other drugs, medicaments and biological substances; Z79.899 Other long term (current) drug therapy; Z88.6 Allergy status to analgesic agent; Z79.52 Long term (current) use of systemic steroids; F31.9 Bipolar disorder, unspecified; G47.00 Insomnia, unspecified; R55 Syncope and collapse; G43.909 Migraine, unspecified, not intractable, without status migrainosus

== ENCOUNTER → 2024-01-09 | Outpatient (CLI) | payer MEDICAID ==
[~2024-01-09] MED LIST changes: -KLON0.5T; +KLON0.5T8; -KLON1TAB; +KLON1TAB13; +KLON1TAB13 PO; +METF500T13 PO
[2024-01-09 10:26] LABS: HEMATOCRIT 39.4 % (36.0-47.0); HEMOGLOBIN 12.8 g/dl (12.0-15.5); MEAN CORPUSCULAR HEMOGLOBIN 33.2 pg (27.0-33.0); MEAN CORPUSCULAR HGB CONC 32.5 g/dl (32.0-36.5); MEAN CORPUSCULAR VOLUME 102.3 fl (80.0-96.0); PLATELET COUNT, AUTOMATED 318 10^3/uL (150-450); RED BLOOD COUNT 3.85 10^6/uL (4.00-5.40); WHITE BLOOD COUNT 6.7 10^3/uL (4.0-10.0)
[2024-01-09 10:58] LABS: TOTAL IRON BINDING CAPACITY 432 UG/DL (250-425)
[2024-01-09 10:59] LABS: ALBUMIN 3.4 G/DL (3.2-5.2); ALKALINE PHOSPHATASE 85 U/L (46-116); ALT/SGPT 14 U/L (7.0-40); AST/SGOT 12 U/L (<34); BILIRUBIN,TOTAL 0.3 MG/DL (0.3-1.2); BLOOD UREA NITROGEN 7 MG/DL (9-23); CALCIUM LEVEL 9.2 MG/DL (8.5-10.1); CARBON DIOXIDE LEVEL 27 MMOL/L (20-31); CHLORIDE LEVEL 104 MMOL/L (98-107); CHOLESTEROL LEVEL 179 MG/DL (<200); CHOLESTEROL RISK RATIO 3.71 (<5); CREATININE FOR GFR 0.34 MG/DL (0.55-1.30); GLOMERULAR FILTRATION RATE > 60.0 (>51); GLUCOSE, FASTING 125 MG/DL (60-100); HDL CHOLESTEROL 48.2 MG/DL (>40); IRON (FE) 63 UG/DL (50-170); MAGNESIUM LEVEL 1.8 MG/DL (1.8-2.4); NON-HDL-C 130.8 MG/DL; PERCENT SATURATION 14.6 % (13.2-45.0); POTASSIUM SERUM 4.2 MMOL/L (3.5-5.1); SODIUM LEVEL 134 MMOL/L (136-145); TOTAL PROTEIN 6.9 G/DL (5.7-8.2); TRIGLYCERIDES LEVEL 259 MG/DL (<150)
[2024-01-09 11:00] LABS: TOTAL 25(OH) VITAMIN D 23.8 NG/ML (20.0-100.0)
[2024-01-09 11:01] LABS: FERRITIN 48.4 NG/ML (7.3-270.7); FREE T4 1.16 NG/DL (0.89-1.76)
[2024-01-09 11:28] LABS: HEMOGLOBIN A1c 5.1 % (4.0-6.0)
== END ==
LOC: M LAB 09:14
PROVIDERS: ATTEND Nurse Practitioner Adult Health
DX: K21.9 Gastro-esophageal reflux disease without esophagitis (principal); F10.21 Alcohol dependence, in remission; F31.31 Bipolar disorder, current episode depressed, mild; G35 Multiple sclerosis; E11.9 Type 2 diabetes mellitus without complications; R53.83 Other fatigue; G60.3 Idiopathic progressive neuropathy; F41.9 Anxiety disorder, unspecified; E83.42 Hypomagnesemia; E87.6 Hypokalemia; Z13.1 Encounter for screening for diabetes mellitus

== ENCOUNTER 2024-02-27 09:30 | Emergency (ER) | payer MEDICAID, OTHER ==
[~2024-02-27] VITALS: Ht 152.4 cm; Wt 75.5 kg
[2024-02-27 11:24] VITALS: BP 119/74; TEMP 97.1; O2SAT 93
== END 2024-02-27 11:29 | disposition home or self-care (01) ==
LOC: M ED 09:30
DX: M25.562 Pain in left knee (principal); W05.0XXA Fall from non-moving wheelchair, initial encounter; G43.909 Migraine, unspecified, not intractable, without status migrainosus; I10 Essential (primary) hypertension; E78.5 Hyperlipidemia, unspecified; F31.9 Bipolar disorder, unspecified; F43.10 Post-traumatic stress disorder, unspecified; J44.9 Chronic obstructive pulmonary disease, unspecified; F17.200 Nicotine dependence, unspecified, uncomplicated; I50.20 Unspecified systolic (congestive) heart failure; Z88.2 Allergy status to sulfonamides; Z88.6 Allergy status to analgesic agent; Z88.8 Allergy status to other drugs, medicaments and biological substances; Z79.52 Long term (current) use of systemic steroids; Z79.811 Long term (current) use of aromatase inhibitors; Z79.4 Long term (current) use of insulin; Z79.899 Other long term (current) drug therapy; Y92.009 Unspecified place in unspecified non-institutional (private) residence as the place of occurrence of the external cause; Y93.9 Activity, unspecified; Y99.9 Unspecified external cause status

== ENCOUNTER → 2024-03-04 | Outpatient (CLI) | payer MEDICAID ==
[~2024-03-04] MED LIST changes: +DOXY-323; +DOXY-440 PO; -DOXY-443; -DOXY-444 PO
[2024-03-04 13:57] LABS: BASO # 0.1 10^3/uL (0.0-0.2); EOS # 0.3 10^3/uL (0.0-0.5); EOS % 3.5 % (0.0-3.0); HEMATOCRIT 43.3 % (36.0-47.0); HEMOGLOBIN 14.1 g/dl (12.0-15.5); LYMPH # 3.8 10^3/uL (1.5-5.0); LYMPH % 47.1 % (24.0-44.0); MEAN CORPUSCULAR HEMOGLOBIN 30.1 pg (27.0-33.0); MEAN CORPUSCULAR HGB CONC 32.6 g/dl (32.0-36.5); MEAN CORPUSCULAR VOLUME 92.5 fl (80.0-96.0); MONO # 0.7 10^3/uL (0.0-0.8); MONO % 8.4 % (2.0-8.0); NEUTROPHILS # 3.2 10^3/uL (1.5-8.5); NEUTROPHILS % 39.7 % (36.0-66.0); PLATELET COUNT, AUTOMATED 270 10^3/uL (150-450); RED BLOOD COUNT 4.68 10^6/uL (4.00-5.40)
[2024-03-04 14:16] LABS: ETHYL ALCOHOL (ETHANOL) < 0.003 % (0.000-0.010)
[2024-03-04 14:18] LABS: ALBUMIN 3.7 G/DL (3.2-5.2); ALKALINE PHOSPHATASE 119 U/L (46-116); ALT/SGPT 13 U/L (7.0-40); AST/SGOT 11 U/L (<34); BILIRUBIN,TOTAL 0.2 MG/DL (0.3-1.2); BLOOD UREA NITROGEN 8 MG/DL (9-23); CALCIUM LEVEL 9.2 MG/DL (8.5-10.1); CARBON DIOXIDE LEVEL 28 MMOL/L (20-31); CHLORIDE LEVEL 102 MMOL/L (98-107); CREATININE FOR GFR 0.41 MG/DL (0.55-1.30); GLOMERULAR FILTRATION RATE > 60.0 (>51); GLUCOSE, FASTING 106 MG/DL (60-100); MAGNESIUM LEVEL 1.7 MG/DL (1.8-2.4); POTASSIUM SERUM 4.1 MMOL/L (3.5-5.1); SODIUM LEVEL 135 MMOL/L (136-145); TOTAL PROTEIN 7.3 G/DL (5.7-8.2)
== END ==
LOC: M LAB 11:15
PROVIDERS: ATTEND Nurse Practitioner Adult Health
DX: K21.9 Gastro-esophageal reflux disease without esophagitis (principal); E87.6 Hypokalemia; F10.21 Alcohol dependence, in remission; F31.31 Bipolar disorder, current episode depressed, mild; E11.9 Type 2 diabetes mellitus without complications; E87.1 Hypo-osmolality and hyponatremia; Z79.899 Other long term (current) drug therapy
CPT/HCPCS: 80053; 80175; 80299; 80307; 82077; 83735; 85025; G0480

== ENCOUNTER → 2024-03-21 | Outpatient (REF) | payer MEDICAID ==
[2024-03-21 17:52] LABS: APPEARANCE, URINE HAZY (CLEAR); BACTERIA, URINE AUTO NEGATIVE (NEGATIVE); BILIRUBIN, URINE AUTO NEGATIVE (NEGATIVE); BLOOD, URINE BLOOD NEGATIVE (NEGATIVE); COLOR, URINE AMBER (YELLOW); GLUCOSE, URINE (UA) AUTO NEGATIVE (NEGATIVE); KETONE, URINE AUTO NEGATIVE (NEGATIVE); LEUKOCYTE ESTERASE, URINE AUTO NEGATIVE (NEGATIVE); MUCUS, URINE SMALL (NEGATIVE); NITRITE, URINE AUTO NEGATIVE (NEGATIVE); PROTEIN, URINE AUTO NEGATIVE (NEGATIVE); RBC, URINE AUTO 2 /HPF (0-3); SPECIFIC GRAVITY URINE AUTO 1.021 (1.002-1.035); SQUAMOUS EPITHELIAL CELL UR AU 5 /HPF (0-6); WBC, URINE AUTO 1 /HPF (0-3)
== END ==
LOC: M LAB REF 17:09
PROVIDERS: ATTEND Physician Assistant Medical
DX: N39.0 Urinary tract infection, site not specified (principal)

== ENCOUNTER 2024-06-08 15:52 | Emergency (ER) | payer MEDICAID, OTHER, SELFPAY ==
[~2024-06-08] VITALS: Ht 152.4 cm; Wt 74.3 kg
[2024-06-08 15:52] VITALS: BP 120/69; TEMP 97.7; O2SAT 98
[~2024-06-08 15:52] MED LIST changes: -CETI-24; -QUET1TAB17
[2024-06-08] MEDS ORDERED: CETI-24 (16:03)
[2024-06-08] MEDS ORDERED: QUET1TAB17 (16:03)
== END 2024-06-08 17:20 | disposition left against medical advice (07) ==
LOC: M ED 15:52
DX: Z53.21 Procedure and treatment not carried out due to patient leaving prior to being seen by health care provider (principal)

== ENCOUNTER → 2024-06-08 | Outpatient (REF) | payer MEDICAID ==
[~2024-06-08] MED LIST changes: +CETI-24; +ESOM1CAP20; -ESOM1CAP5; +ONDA-282 PO; -ONDA4TAB6 PO; +QUET1TAB17
[2024-06-08 21:40] LABS: APPEARANCE, URINE CLEAR (CLEAR); BACTERIA, URINE AUTO NEGATIVE (NEGATIVE); BILIRUBIN, URINE AUTO NEGATIVE (NEGATIVE); BLOOD, URINE BLOOD NEGATIVE (NEGATIVE); COLOR, URINE YELLOW (YELLOW); GLUCOSE, URINE (UA) AUTO NEGATIVE (NEGATIVE); KETONE, URINE AUTO NEGATIVE (NEGATIVE); LEUKOCYTE ESTERASE, URINE AUTO NEGATIVE (NEGATIVE); MUCUS, URINE SMALL (NEGATIVE); NITRITE, URINE AUTO NEGATIVE (NEGATIVE); PROTEIN, URINE AUTO NEGATIVE (NEGATIVE); RBC, URINE AUTO 0 /HPF (0-3); SPECIFIC GRAVITY URINE AUTO 1.004 (1.002-1.035); SQUAMOUS EPITHELIAL CELL UR AU 0 /HPF (0-6); UROBILINOGEN, URINE AUTO 0.2 mg/dL (0.0-2.0); WBC, URINE AUTO 2 /HPF (0-3)
== END ==
LOC: M LAB REF 21:28
PROVIDERS: ATTEND Physician Assistant
DX: N39.0 Urinary tract infection, site not specified (principal)

== ENCOUNTER 2024-06-26 11:50 | Emergency (ER) | payer MEDICAID ==
[~2024-06-26] VITALS: Ht 152.4 cm; Wt 72.7 kg
[2024-06-26 11:51] VITALS: BP 128/79; TEMP 97.3; O2SAT 93
== END 2024-06-26 12:13 | disposition left against medical advice (07) ==
LOC: M ED 11:50
DX: Z53.21 Procedure and treatment not carried out due to patient leaving prior to being seen by health care provider (principal)

== ENCOUNTER → 2024-06-26 | Outpatient (REF) | payer MEDICAID ==
[~2024-06-26] MED LIST changes: +CETI-24; +QUET1TAB17
[2024-06-26 20:29] LABS: APPEARANCE, URINE HAZY (CLEAR); BACTERIA, URINE AUTO NEGATIVE (NEGATIVE); BILIRUBIN, URINE AUTO NEGATIVE (NEGATIVE); BLOOD, URINE BLOOD NEGATIVE (NEGATIVE); COLOR, URINE AMBER (YELLOW); GLUCOSE, URINE (UA) AUTO NEGATIVE (NEGATIVE); KETONE, URINE AUTO TRACE mg/dL (NEGATIVE); LEUKOCYTE ESTERASE, URINE AUTO NEGATIVE (NEGATIVE); MUCUS, URINE SMALL (NEGATIVE); NITRITE, URINE AUTO NEGATIVE (NEGATIVE); PROTEIN, URINE AUTO NEGATIVE (NEGATIVE); RBC, URINE AUTO 0 /HPF (0-3); SPECIFIC GRAVITY URINE AUTO 1.025 (1.002-1.035); SQUAMOUS EPITHELIAL CELL UR AU 4 /HPF (0-6); WBC, URINE AUTO 1 /HPF (0-3)
== END ==
LOC: M LAB REF 19:19
PROVIDERS: ATTEND Physician Assistant Medical
DX: N39.0 Urinary tract infection, site not specified (principal)

== ENCOUNTER 2024-06-30 08:06 | Emergency (ER) | payer MEDICAID, OTHER ==
[~2024-06-30] VITALS: Ht 152.4 cm; Wt 75.0 kg
[2024-06-30] MEDS: ALBUTEROL SULFATE 2.5MG/0.5ML INH NEB SOLN NEB ONE (09:12)
[2024-06-30 09:40] LABS: BASO # 0.1 10^3/uL (0.0-0.2); BASO % 1.8 % (0.0-1.0); EOS # 0.7 10^3/uL (0.0-0.5); EOS % 10.2 % (0.0-3.0); HEMATOCRIT 44.4 % (36.0-47.0); HEMOGLOBIN 14.4 g/dl (12.0-15.5); LYMPH # 3.1 10^3/uL (1.5-5.0); LYMPH % 44.7 % (24.0-44.0); MEAN CORPUSCULAR HEMOGLOBIN 31.1 pg (27.0-33.0); MEAN CORPUSCULAR HGB CONC 32.4 g/dl (32.0-36.5); MEAN CORPUSCULAR VOLUME 95.9 fl (80.0-96.0); MONO # 0.7 10^3/uL (0.0-0.8); MONO % 9.8 % (2.0-8.0); NEUTROPHILS # 2.3 10^3/uL (1.5-8.5); NEUTROPHILS % 33.4 % (36.0-66.0); PLATELET COUNT, AUTOMATED 317 10^3/uL (150-450); RED BLOOD COUNT 4.63 10^6/uL (4.00-5.40); WHITE BLOOD COUNT 6.8 10^3/uL (4.0-10.0)
[2024-06-30 10:06] LABS: LIPASE 25 U/L (12-53)
[2024-06-30 10:09] LABS: ALBUMIN 3.7 G/DL (3.2-5.2); ALKALINE PHOSPHATASE 108 U/L (46-116); ALT/SGPT 10 U/L (7.0-40); AST/SGOT < 8 U/L (<34); BILIRUBIN,DIRECT 0.1 MG/DL (<0.4); BILIRUBIN,TOTAL 0.4 MG/DL (0.3-1.2); BLOOD UREA NITROGEN 13 MG/DL (9-23); CALCIUM LEVEL 9.5 MG/DL (8.5-10.1); CARBON DIOXIDE LEVEL 27 MMOL/L (20-31); CHLORIDE LEVEL 106 MMOL/L (98-107); CREATININE FOR GFR 0.38 MG/DL (0.55-1.30); GLOMERULAR FILTRATION RATE > 60.0 (>51); GLUCOSE, FASTING 122 MG/DL (60-100); POTASSIUM SERUM 4.3 MMOL/L (3.5-5.1); SODIUM LEVEL 136 MMOL/L (136-145); TOTAL PROTEIN 7.7 G/DL (5.7-8.2)
[2024-06-30 10:32] LABS: Trichomonas vaginalis (AMP) NOT DETECTED (NEGATIVE)
[2024-06-30] MEDS ORDERED: ISOVUE-370 76% 100ML VIAL As Ordered ONE (10:32)
[2024-06-30 10:56] LABS: GC DNA AMPLIFICATION NEGATIVE (NEGATIVE)
[2024-06-30 11:37] VITALS: BP 123/78; TEMP 96.6; O2SAT 95
== END 2024-06-30 11:42 | disposition home or self-care (01) ==
LOC: M ED 08:06
DX: R10.2 Pelvic and perineal pain (principal); R10.30 Lower abdominal pain, unspecified; N28.1 Cyst of kidney, acquired; K57.30 Diverticulosis of large intestine without perforation or abscess without bleeding; I10 Essential (primary) hypertension; J45.909 Unspecified asthma, uncomplicated; E11.9 Type 2 diabetes mellitus without complications; F17.200 Nicotine dependence, unspecified, uncomplicated; Z90.49 Acquired absence of other specified parts of digestive tract; Z88.6 Allergy status to analgesic agent; Z88.2 Allergy status to sulfonamides; Z88.8 Allergy status to other drugs, medicaments and biological substances; Z87.42 Personal history of other diseases of the female genital tract; Z79.811 Long term (current) use of aromatase inhibitors; Z79.52 Long term (current) use of systemic steroids; Z79.899 Other long term (current) drug therapy
CPT/HCPCS: 36415; 74177; 80048; 80076; 81001; 83690; 85025; 87086; 87661; 87810; 87850; 99284; Q9967

== ENCOUNTER 2024-11-15 09:38 | Emergency (ER) | payer MEDICAID, OTHER ==
[~2024-11-15] VITALS: Ht 152.4 cm; Wt 75.2 kg
[~2024-11-15 09:38] MED LIST changes: -ADV500INH INH; +ADVA1AER10 INH; +ADVA1AER9 INH; -CYCL5TAB; +CYCL5TAB4; -DOXY-323; +DOXY-441; -NICO-256 PO; +NICO-392 PO; +VANC250C12 PO; -VANC250C3 PO
[2024-11-15] MEDS ORDERED: BELS1TAB3 (10:31)
[2024-11-15] MEDS ORDERED: BUSP5TA (10:31)
[2024-11-15] MEDS ORDERED: QUET50TA4 (10:31)
[2024-11-15] MEDS ORDERED: PARO30TA4 (10:31)
[2024-11-15 13:22] LABS: BASO # 0.1 10^3/uL (0.0-0.2); EOS # 0.3 10^3/uL (0.0-0.5); EOS % 2.7 % (0.0-3.0); HEMATOCRIT 44.9 % (36.0-47.0); HEMOGLOBIN 15.4 g/dl (12.0-15.5); LYMPH # 3.2 10^3/uL (1.5-5.0); LYMPH % 35.2 % (24.0-44.0); MEAN CORPUSCULAR HEMOGLOBIN 32.8 pg (27.0-33.0); MEAN CORPUSCULAR HGB CONC 34.3 g/dl (32.0-36.5); MEAN CORPUSCULAR VOLUME 95.5 fl (80.0-96.0); MONO # 0.6 10^3/uL (0.0-0.8); MONO % 6.6 % (2.0-8.0); NEUTROPHILS % 54.4 % (36.0-66.0); PLATELET COUNT, AUTOMATED 237 10^3/uL (150-450); WHITE BLOOD COUNT 9.2 10^3/uL (4.0-10.0)
[2024-11-15] MEDS: NS 500 ML IV ONE (14:14)
[2024-11-15 14:41] LABS: THYROID STIMULATING HORMONE 1.681 uIU/ML (0.55-4.78)
[2024-11-15 14:42] LABS: FREE T4 1.07 NG/DL (0.89-1.76)
[2024-11-15 14:44] LABS: BLOOD UREA NITROGEN 8 MG/DL (9-23); CALCIUM LEVEL 9.3 MG/DL (8.5-10.1); CARBON DIOXIDE LEVEL 25 MMOL/L (20-31); CHLORIDE LEVEL 107 MMOL/L (98-107); CREATININE FOR GFR 0.37 MG/DL (0.55-1.30); GLOMERULAR FILTRATION RATE > 60.0 (>51); GLUCOSE, FASTING 106 MG/DL (60-100); MAGNESIUM LEVEL 1.7 MG/DL (1.8-2.4); POTASSIUM SERUM 4.2 MMOL/L (3.5-5.1); SODIUM LEVEL 139 MMOL/L (136-145)
[2024-11-15] MEDS: diazePAM 10MG/2ML SYRINGE IV ONE (15:06)
[2024-11-15 16:21] VITALS: BP 128/66
[2024-11-15 16:30] VITALS: TEMP 97.8; O2SAT 90
[2024-11-15] MEDS ORDERED: MECL-209 PO (16:56)
[2024-11-15 17:14] LABS: VITAMIN B12 LEVEL 487 PG/ML (211-911)
== END 2024-11-15 17:06 | disposition home or self-care (01) ==
LOC: M ED 09:38
DX: H81.4 Vertigo of central origin (principal); R93.0 Abnormal findings on diagnostic imaging of skull and head, not elsewhere classified; M47.812 Spondylosis without myelopathy or radiculopathy, cervical region; I45.10 Unspecified right bundle-branch block; I10 Essential (primary) hypertension; J45.909 Unspecified asthma, uncomplicated; K21.9 Gastro-esophageal reflux disease without esophagitis; G43.909 Migraine, unspecified, not intractable, without status migrainosus; G35 Multiple sclerosis; F31.9 Bipolar disorder, unspecified; F43.10 Post-traumatic stress disorder, unspecified; F10.10 Alcohol abuse, uncomplicated; F17.200 Nicotine dependence, unspecified, uncomplicated; Z88.2 Allergy status to sulfonamides; Z88.6 Allergy status to analgesic agent; Z88.8 Allergy status to other drugs, medicaments and biological substances; Z79.52 Long term (current) use of systemic steroids; Z79.811 Long term (current) use of aromatase inhibitors; Z79.899 Other long term (current) drug therapy
CPT/HCPCS: 70450; 70544; 70551; 72125; 80048; 82607; 83735; 84425; 84439; 84443; 85025; 93005; 93041; 94760; 99285; J3360

== ENCOUNTER → 2024-11-23 | Outpatient (CLI) | payer MEDICAID ==
[~2024-11-23] MED LIST changes: +BELS1TAB3; +BUSP5TA; +MECL-209 PO; +QUET50TA4
[2024-11-23 14:50] LABS: BASO # 0.1 10^3/uL (0.0-0.2); BASO % 1.4 % (0.0-1.0); EOS # 0.3 10^3/uL (0.0-0.5); EOS % 4.1 % (0.0-3.0); HEMATOCRIT 45.4 % (36.0-47.0); HEMOGLOBIN 15.1 g/dl (12.0-15.5); LYMPH # 3.4 10^3/uL (1.5-5.0); LYMPH % 41.7 % (24.0-44.0); MEAN CORPUSCULAR HEMOGLOBIN 32.4 pg (27.0-33.0); MEAN CORPUSCULAR HGB CONC 33.3 g/dl (32.0-36.5); MEAN CORPUSCULAR VOLUME 97.4 fl (80.0-96.0); MONO # 0.8 10^3/uL (0.0-0.8); MONO % 10.3 % (2.0-8.0); NEUTROPHILS # 3.4 10^3/uL (1.5-8.5); NEUTROPHILS % 42.3 % (36.0-66.0); PLATELET COUNT, AUTOMATED 229 10^3/uL (150-450); RED BLOOD COUNT 4.66 10^6/uL (4.00-5.40)
[2024-11-23 15:09] LABS: HEMOGLOBIN A1c 6.2 % (4.0-6.0)
[2024-11-23 15:22] LABS: ALBUMIN 3.7 G/DL (3.2-5.2); ALKALINE PHOSPHATASE 107 U/L (35-104); ALT/SGPT < 9 U/L (7.0-40); AST/SGOT 12 U/L (<34); BILIRUBIN,TOTAL 0.3 MG/DL (0.3-1.2); BLOOD UREA NITROGEN 11 MG/DL (9-23); CALCIUM LEVEL 9.3 MG/DL (8.5-10.1); CARBON DIOXIDE LEVEL 24 MMOL/L (20-31); CHLORIDE LEVEL 105 MMOL/L (98-107); CHOLESTEROL LEVEL 246 MG/DL (<200); CHOLESTEROL RISK RATIO 4.53 (<5); CREATININE FOR GFR 0.42 MG/DL (0.55-1.30); GLOMERULAR FILTRATION RATE > 60.0 (>51); GLUCOSE, FASTING 99 MG/DL (60-100); HDL CHOLESTEROL 54.2 MG/DL (>40); LDL CHOLESTEROL 132.4 MG/DL (<100); MAGNESIUM LEVEL 1.8 MG/DL (1.8-2.4); NON-HDL-C 191.8 MG/DL; POTASSIUM SERUM 4.6 MMOL/L (3.5-5.1); SODIUM LEVEL 139 MMOL/L (136-145); TOTAL PROTEIN 7.8 G/DL (5.7-8.2); TRIGLYCERIDES LEVEL 297 MG/DL (<150)
[2024-11-23 15:25] LABS: THYROID STIMULATING HORMONE 1.978 uIU/ML (0.55-4.78)
[2024-11-23 15:30] LABS: APPEARANCE, URINE CLEAR (CLEAR); BACTERIA, URINE AUTO 1+ (NEGATIVE); BILIRUBIN, URINE AUTO NEGATIVE (NEGATIVE); BLOOD, URINE BLOOD NEGATIVE (NEGATIVE); COLOR, URINE YELLOW (YELLOW); GLUCOSE, URINE (UA) AUTO NEGATIVE (NEGATIVE); KETONE, URINE AUTO NEGATIVE (NEGATIVE); LEUKOCYTE ESTERASE, URINE AUTO NEGATIVE (NEGATIVE); NITRITE, URINE AUTO NEGATIVE (NEGATIVE); PROTEIN, URINE AUTO NEGATIVE (NEGATIVE); RBC, URINE AUTO 0 /HPF (0-3); SPECIFIC GRAVITY URINE AUTO 1.011 (1.002-1.035); SQUAMOUS EPITHELIAL CELL UR AU 1 /HPF (0-6); UROBILINOGEN, URINE AUTO 0.2 mg/dL (0.0-2.0); WBC, URINE AUTO 0 /HPF (0-3)
[2024-11-23 15:57] LABS: CREATININE, URINE 38.1 MG/DL
[2024-11-23 15:58] LABS: MALB URINE SIEMENS < 3.0 MG/L
== END ==
LOC: M PLALAB 09:50
PROVIDERS: ATTEND Nurse Practitioner Family
DX: I10 Essential (primary) hypertension (principal); E78.2 Mixed hyperlipidemia; E11.69 Type 2 diabetes mellitus with other specified complication; R35.0 Frequency of micturition; E55.9 Vitamin D deficiency, unspecified

== ENCOUNTER 2024-12-21 07:23 | Emergency (ER) | payer MEDICAID ==
[~2024-12-21] VITALS: Ht 152.4 cm; Wt 72.7 kg
[2024-12-21] MEDS: dexAMETHasone 20MG/5ML VIAL IV ONE (07:55)
[2024-12-21] MEDS: IPRATROPIUM 0.5MG/ALBUTEROL 2.5MG INH SOL UD 3ML (DUONEB) NEB SCH (08:15)
[2024-12-21] MEDS ORDERED: OSEL75CA PO (09:08)
[2024-12-21] MEDS: OSELTAMIVIR PHOSPHATE 75 MG CAP PO ONE (09:18)
[2024-12-21 09:50] VITALS: BP 127/74; TEMP 97.2; O2SAT 96
== END 2024-12-21 09:54 | disposition home or self-care (01) ==
LOC: EDBD 07:23 → M ED 07:23
DX: J44.1 Chronic obstructive pulmonary disease with (acute) exacerbation (principal); J09.X2 Influenza due to identified novel influenza A virus with other respiratory manifestations; E11.9 Type 2 diabetes mellitus without complications; I10 Essential (primary) hypertension; E78.5 Hyperlipidemia, unspecified; F17.200 Nicotine dependence, unspecified, uncomplicated; Z79.899 Other long term (current) drug therapy; Z88.6 Allergy status to analgesic agent; Z88.2 Allergy status to sulfonamides; Z88.8 Allergy status to other drugs, medicaments and biological substances
CPT/HCPCS: 71046; 87486; 87581; 87633; 87798; 94640; 96374; 99284; J1100